=== PATIENT | male | born 1935 | race Caucasian/White ===

== ENCOUNTER → 2016-07-23 | Outpatient (CLI) | payer MEDICARE ==
--- NOTE | 2016-07-24 11:46 | XR ---
EXAMINATION TYPE: XR chest 2V DATE OF EXAM: 07/23/2016 3:05 PM COMPARISON: 08/28/2015 HISTORY: Shortness of breath TECHNIQUE: Frontal and lateral views of the chest are obtained. FINDINGS: Scattered senescent parenchymal changes noted. Hyperinflation compatible with COPD. No evidence for infiltrate. No evidence for atelectasis. Heart size is stable. Mediastinal structures are stable and grossly unremarkable. No evidence for hilar prominence. Degenerative changes dorsal spine. IMPRESSION: 1. No evidence for acute pulmonary disease.
== END | disposition home or self-care (01) ==
LOC: RADXRYALE 14:55
PROVIDERS: ATTEND Family Medicine
DX: J20.8 Acute bronchitis due to other specified organisms (principal)
CPT/HCPCS: 71020

== ENCOUNTER 2017-05-20 08:10 | Inpatient (IN) | payer MEDICARE ==
--- NOTE | 2017-05-20 08:27 | ED ---
General Adult HPI - General Chief complaint: Arrhythmia/Palpitations Stated complaint: Afib Time Seen by Provider: 05/20/17 08:20 Source: patient, family, RN notes reviewed Mode of arrival: wheelchair Limitations: no limitations - History of Present Illness Initial comments: Patient is a pleasant 82-year-old male presenting to the emergency department with concerns for atrial fibrillation. Patient has had similar problems previously however not in over a year. Patient does have history of ablation. Patient was somewhat restless through the night. Patient woke up this morning and felt lightheaded. They did check the pulse and found it to be fast and irregular consistent with previous atrial fibrillation. No palpitations. No chest pain. No dyspnea. - Related Data Home Medications Medication Instructions Recorded Confirmed Carvedilol [Coreg] 25 mg PO BID@0500,1800 07/12/14 05/20/17 Multivitamin [Men's Multi-Vitamin] 1 tab PO DAILY@1300 07/12/14 05/20/17 Propafenone [Rythmol] 150 mg PO TID@,,07/12/14 05/20/17 Tamsulosin HCl [Flomax] 0.4 mg PO HS@2100 07/12/14 05/20/17 Warfarin [Coumadin] 3.75 tab PO WESA@1800 07/12/14 05/20/17 Warfarin [Coumadin] 7.5 mg PO SUMOTUTHFR@1800 07/12/14 05/20/17 Allergies Allergy/AdvReac Type Severity Reaction Status Date / Time albuterol [From Ventolin HFA] Allergy Rapid Verified 05/20/17 08:53 Heart Rate amiodarone HCl Allergy Dyspnea Verified 05/20/17 08:53 [From Cordarone] codeine Allergy Nausea & Verified 05/20/17 08:53 Vomiting enalapril maleate Allergy Cough Verified 05/20/17 08:53 [From Vasotec] enalaprilat dihydrate Allergy Cough Verified 05/20/17 08:53 [From Vasotec] hydromorphone HCl Allergy Nausea & Verified 05/20/17 08:53 [From Dilaudid] Vomiting isosorbide mononitrate Allergy Unknown Verified 05/20/17 08:53 [From Imdur] loratadine [From Claritin] Allergy Rapid Verified 05/20/17 08:53 Heart Rate morphine Allergy Nausea & Verified 05/20/17 08:53 Vomiting Penicillins Allergy Rash/Hives Verified 05/20/17 08:53 procainamide HCl Allergy "FLUID ON Verified 05/20/17 08:53 [From Pronestyl] HEART" tetanus toxoid, adsorbed Allergy "JOINT Verified 05/20/17 08:53 STIFFNESS" Review of Systems ROS Statement: Those systems with pertinent positive or pertinent negative responses have been documented in the HPI. ROS Other: All systems not noted in ROS Statement are negative. Constitutional: Denies: fever Eyes: Denies: eye pain ENT: Denies: ear pain Respiratory: Denies: cough Cardiovascular: Denies: chest pain Endocrine: Denies: fatigue Gastrointestinal: Denies: abdominal pain Genitourinary: Denies: dysuria Musculoskeletal: Denies: back pain Skin: Denies: rash Neurological: Denies: weakness Past Medical History Past Medical History: Atrial Fibrillation, Hypertension, Osteoarthritis (OA), Skin Disorder, Sleep Apnea/CPAP/BIPAP Additional Past Medical History / Comment(s): uses CPAP, hx. kidney stones, psoriasis, see Dr Martinez [facility] & P History of Any Multi-Drug Resistant Organisms: None Reported Past Surgical History: Cardiac Ablation, Joint Replacement, Orthopedic Surgery Additional Past Surgical History / Comment(s): KIDNEY & URETER SURGERY, BILATERAL KNEE AND HIP REPLACEMENT Past Anesthesia/Blood Transfusion Reactions: No Reported Reaction Past Psychological History: No Psychological Hx Reported Smoking Status: Former smoker Past Alcohol Use History: None Reported Past Drug Use History: None Reported General Exam Limitations: no limitations General appearance: alert, in no apparent distress Head exam: Present: atraumatic Eye exam: Present: normal appearance, PERRL ENT exam: Present: normal oropharynx Neck exam: Present: normal inspection Respiratory exam: Present: normal lung sounds bilaterally Cardiovascular Exam: Present: tachycardia, irregular rhythm GI/Abdominal exam: Present: soft. Absent: tenderness Extremities exam: Present: normal inspection Neurological exam: Present: alert Psychiatric exam: Present: normal affect, normal mood Skin exam: Present: normal color Course Vital Signs 05/20/17 05/20/17 05/20/17 08:20 08:23 08:44 Temperature 97.4 F L Pulse Rate 128 H 122 H Pulse Rate [ 129 H Radial] Respiratory 16 Rate Blood Pressure 135/93 99/58 O2 Sat by Pulse 95 Oximetry 05/20/17 05/20/17 09:18 09:42 Temperature Pulse Rate 120 H 105 H Pulse Rate [ Radial] Respiratory 16 16 Rate Blood Pressure 94/50 107/64 O2 Sat by Pulse 97 96 Oximetry EKG Findings - EKG Comments: EKG Findings:: A. fib with RVR, rate 124. QRS 116. QT 352. QTC 505. Left axis. LVH. Nonspecific ST-T. Medical Decision Making - Medical Decision Making Patient reexamined and resting comfortably in bed. Heart rate remains fluctuating between 100-140. Patient and family were updated on results and plan. Case discussed in detail with Dr. Park, who will admit for Dr. Mosqueda. - Lab Data Result diagrams: 05/20/17 08:33 05/20/17 08:33 Lab Results 05/20/17 05/20/17 05/20/17 Range/Units 08:33 08:33 08:33 WBC 5.9 (3.8-10.6) k/uL RBC 4.63 (4.30-5.90) m/uL Hgb 14.4 (13.0-17.5) gm/dL Hct 44.6 (39.0-53.0) % MCV 96.1 (80.0-100.0) fL MCH 31.1 (25.0-35.0) pg MCHC 32.4 (31.0-37.0) g/dL RDW 13.8 (11.5-15.5) % Plt Count 186 (150-450) k/uL Neutrophils % 68 % Lymphocytes % 19 % Monocytes % 7 % Eosinophils % 4 % Basophils % 1 % Neutrophils # 4.0 (1.3-7.7) k/uL Lymphocytes # 1.1 (1.0-4.8) k/uL Monocytes # 0.4 (0-1.0) k/uL Eosinophils # 0.2 (0-0.7) k/uL Basophils # 0.1 (0-0.2) k/uL PT (9.0-12.0) sec INR (<1.2) APTT (22.0-30.0) sec Sodium 141 (137-145) mmol/L Potassium 4.5 (3.5-5.1) mmol/L Chloride 109 H (98-107) mmol/L Carbon Dioxide 24 (22-30) mmol/L Anion Gap 8 mmol/L BUN 22 H (9-20) mg/dL Creatinine 0.78 (0.66-1.25) mg/dL Est GFR (MDRD) Af Amer >60 (>60 ml/min/1.73 sqM) Est GFR (MDRD) Non-Af >60 (>60 ml/min/1.73 sqM) Glucose 112 H (74-99) mg/dL Calcium 9.3 (8.4-10.2) mg/dL Magnesium 2.0 (1.6-2.3) mg/dL Total Bilirubin 0.4 (0.2-1.3) mg/dL AST 31 (17-59) U/L ALT 36 (21-72) U/L Alkaline Phosphatase 64 (38-126) U/L Total Creatine Kinase 53 L (55-170) U/L CK-MB (CK-2) 1.1 (0.0-2.4) ng/mL CK-MB (CK-2) Rel Index 2.1 Troponin I <0.012 (0.000-0.034) ng/mL Total Protein 6.9 (6.3-8.2) g/dL Albumin 3.9 (3.5-5.0) g/dL TSH 1.750 (0.465-4.680) mIU/L Free T4 0.88 (0.78-2.19) ng/dL Free T3 pg/mL 3.3 (2.8-5.3) pg/ml 05/20/17 Range/Units 08:33 WBC (3.8-10.6) k/uL RBC (4.30-5.90) m/uL Hgb (13.0-17.5) gm/dL Hct (39.0-53.0) % MCV (80.0-100.0) fL MCH (25.0-35.0) pg MCHC (31.0-37.0) g/dL RDW (11.5-15.5) % Plt Count (150-450) k/uL Neutrophils % % Lymphocytes % % Monocytes % % Eosinophils % % Basophils % % Neutrophils # (1.3-7.7) k/uL Lymphocytes # (1.0-4.8) k/uL Monocytes # (0-1.0) k/uL Eosinophils # (0-0.7) k/uL Basophils # (0-0.2) k/uL PT 17.8 H (9.0-12.0) sec INR 1.9 H (<1.2) APTT 32.2 H (22.0-30.0) sec Sodium (137-145) mmol/L Potassium (3.5-5.1) mmol/L Chloride (98-107) mmol/L Carbon Dioxide (22-30) mmol/L Anion Gap mmol/L BUN (9-20) mg/dL Creatinine (0.66-1.25) mg/dL Est GFR (MDRD) Af Amer (>60 ml/min/1.73 sqM) Est GFR (MDRD) Non-Af (>60 ml/min/1.73 sqM) Glucose (74-99) mg/dL Calcium (8.4-10.2) mg/dL Magnesium (1.6-2.3) mg/dL Total Bilirubin (0.2-1.3) mg/dL AST (17-59) U/L ALT (21-72) U/L Alkaline Phosphatase (38-126) U/L Total Creatine Kinase (55-170) U/L CK-MB (CK-2) (0.0-2.4) ng/mL CK-MB (CK-2) Rel Index Troponin I (0.000-0.034) ng/mL Total Protein (6.3-8.2) g/dL Albumin (3.5-5.0) g/dL TSH (0.465-4.680) mIU/L Free T4 (0.78-2.19) ng/dL Free T3 pg/mL (2.8-5.3) pg/ml - Radiology Data Radiology results: image reviewed (Chest x-ray shows mild cardiomegaly. Curvilinear density right base.) Critical Care Time Critical Care Time: Yes Total Critical Care Time: 31 Disposition Clinical Impression: Atrial fibrillation with RVR Disposition: ADMITTED IP TO THIS HOSP Referrals: Nehemiah Mosqueda DO [Primary Care Provider] - 1-2 days Decision Time: 10:26
[2017-05-20] MEDS: DILTIAZEM 5 MG/ML 5 ML VIAL IVP STA ×2 (08:38→09:26)
[2017-05-20 08:43] LABS: Basophils # (A) 0.1 k/uL (0-0.2); Basophils % (A) 1 %; CH 31.2; CHCM 32.6; Eosinophils # (A) 0.2 k/uL (0-0.7); Eosinophils % (A) 4 %; HCT 44.6 % (39.0-53.0); HDW 2.32; HGB 14.4 gm/dL (13.0-17.5); Luc # (Auto) 0.06; Luc % (Auto) 1; Lymphocytes # (A) 1.1 k/uL (1.0-4.8); Lymphocytes % (A) 19 %; MCH 31.1 pg (25.0-35.0); MCHC 32.4 g/dL (31.0-37.0); MCV 96.1 fL (80.0-100.0); Mean Platelet Volume 7.7; Monocytes # (A) 0.4 k/uL (0-1.0); Monocytes % (A) 7 %; Neutrophils % (A) 68 %; RBC 4.63 m/uL (4.30-5.90); RDW 13.8 % (11.5-15.5); WBC 5.9 k/uL (3.8-10.6)
[2017-05-20 08:52] LABS: INR 1.9 (<1.2); Partial Thromboplastin Time 32.2 sec (22.0-30.0); Prothrombin Time 17.8 sec (9.0-12.0)
[2017-05-20 08:58] LABS: ALT 36 U/L (21-72); AST 31 U/L (17-59); Alkaline Phosphatase 64 U/L (38-126); Anion Gap 8 mmol/L; Blood Urea Nitrogen 22 mg/dL (9-20); Calcium 9.3 mg/dL (8.4-10.2); Carbon Dioxide 24 mmol/L (22-30); Chloride 109 mmol/L (98-107); Glucose 112 mg/dL (74-99); Non-African American GFR(MDRD) >60 (>60 ml/min/1.73 sqM); Potassium 4.5 mmol/L (3.5-5.1); Sodium 141 mmol/L (137-145); Total Bilirubin 0.4 mg/dL (0.2-1.3); Total Protein 6.9 g/dL (6.3-8.2)
[2017-05-20 09:05] LABS: Creatine Kinase 53 U/L (55-170)
[2017-05-20 09:19] LABS: Creatine Kinase MB 1.1 ng/mL (0.0-2.4); Troponin I <0.012 ng/mL (0.000-0.034)
--- NOTE | 2017-05-20 09:35 | XR ---
EXAMINATION TYPE: XR chest 2V DATE OF EXAM: 05/20/2017 COMPARISON: 07/23/2016 HISTORY: 82-year-old male dysrhythmia TECHNIQUE: AP and lateral views FINDINGS: Heart is mildly enlarged. Mild diffuse interstitial prominence unchanged from prior. Strandy atelecta sis at the lung bases. Either curvilinear band of atelectasis, interposed colon below the right hemid iaphragm and liver, or less likely free air below the right hemidiaphragm. No consolidation or pleura l effusion. IMPRESSION: 1 mild cardiomegaly. 2. Chronic appearing changes. 3. Curvilinear density at the right base. Differential considerations include a band of atelectasis, colonic interposition between the right hemidiaphragm and liver, or free air. Recommend clinical asse ssment of the patient and a decubitus view of the abdomen to further evaluate.
[2017-05-20] MEDS ORDERED: NALOXONE 0.4 MG/ML 1 ML VIAL IV PRN (10:27)
[2017-05-20] MEDS ORDERED: DILTIAZEM 125 MG in SODIUM CHLORIDE 0.9% 100 ML IV ONE (10:30)
[2017-05-20] MEDS ORDERED: SODIUM CHLORIDE 0.9% 1,000 ML IV STA (10:44)
--- NOTE | 2017-05-20 10:55 | XR ---
EXAMINATION TYPE: XR abdomen complete w decub DATE OF EXAM: 05/20/2017 COMPARISON: Chest radiograph same day HISTORY: 82-year-old male atrial fibrillation and abnormal chest x-ray TECHNIQUE: Supine, upright, and left side down lateral decubitus views of the abdomen are obtained. FINDINGS: No evidence for free intraperitoneal air on the upright abdominal or left decubitus view. Focal eventration of the right hemidiaphragm. The hepatic flexure is high in the right hemicolon. Bor derline dilated small bowel loops are present throughout without differential air-fluid levels. Degenerative changes throughout the lumbar spine. Left hip total arthroplasties partially visualized. IMPRESSION: 1. Borderline dilated small bowel loops. This could be transient or reflect enteritis or ileus. Overa ll bowel gas pattern is nonobstructive. 2. The questioned radiographic finding corresponds to high positioning of the hepatic flexure. No david dence for free air.
[2017-05-20] MEDS ORDERED: HEPARIN SODIUM,PORCINE 5,000 UNIT/ML 1 ML VIAL IV PRN (11:17)
[2017-05-20] MEDS ORDERED: HEPARIN SODIUM,PORCINE 5,000 UNIT/ML 1 ML VIAL IV ONE (11:30)
[2017-05-20] MEDS ORDERED: ENOXAPARIN 100 MG/ML SYRINGE SQ STA (11:37)
[2017-05-20] MEDS ORDERED: HEPARIN SODIUM,PORCINE/D5W PMX 25,000 UNIT in DEXTROSE/WATER 1 500ML.BAG IV SCH (12:00)
[2017-05-20] MEDS ORDERED: PROPAFENONE 150 MG TAB PO SCH (13:00)
[2017-05-20] MEDS ORDERED: MULTIVITAMINS, THERA 1 EACH TAB PO SCH (13:00)
--- NOTE | 2017-05-20 13:00 | P.HPIM ---
History of Present Illness H&P Date: 05/20/17 Chief Complaint: Lightheaded HISTORY AND PHYSICAL AND DISCHARGE SUMMARY: This is an 82-year-old male patient of Dr. Mosqueda with a past medical history of paroxysmal atrial fibrillation status post cardiac ablation in 2007 as well as cardioversions a couple times since then, hypertension, osteoarthritis, obstructive sleep apnea but not currently on a CPAP, psoriasis, hard of hearing. Patient states that he woke up feeling lightheaded and was concerned that he had atrial fibrillation again. He did have a rapid heartbeat. He came into [facility] emergency center for evaluation. His EKG was atrial fibrillation at a rate of 124. TSH was normal. Patient was admitted to the selective care unit and has been seen by Dr. KAREN Thomas. Patient is up slightly converted to a sinus rhythm. Dr. KAREN Thomas has recommended increased dose of Rythmol from 150 mg 3 times daily to 225 mg 3 times daily and he will provide patient with a prescription. Patient is to continue his current dose of Coumadin. Note his INR is at 1.9. Review of Systems All systems: negative Constitutional: Denies chills, Denies fever Eyes: denies blurred vision, denies pain Ears, nose, mouth and throat: Denies headache, Denies sore throat Cardiovascular: Reports lightheadedness, Reports rapid heart beat, Denies chest pain, Denies shortness of breath Respiratory: Denies cough Gastrointestinal: Denies abdominal pain, Denies diarrhea, Denies nausea, Denies vomiting Musculoskeletal: Denies myalgias Integumentary: Denies pruritus, Denies rash Neurological: Denies numbness, Denies weakness Psychiatric: Denies anxiety, Denies depression Endocrine: Denies fatigue, Denies weight change Past Medical History Past Medical History: Atrial Fibrillation, Atrial Flutter, Hypertension, Osteoarthritis (OA), Pneumonia, Renal Disease, Skin Disorder, Sleep Apnea/CPAP/ BIPAP Additional Past Medical History / Comment(s): Not currently using CPAP, kidney stones, psoriasis, reactive airway, urinary frequency. History of Any Multi-Drug Resistant Organisms: None Reported Past Surgical History: Cardiac Ablation, Joint Replacement, Orthopedic Surgery Additional Past Surgical History / Comment(s): Cardioversions, 2007 cardiac ablation, bilateral total knee arthroplasty, bilateral total hip arthroplasty, R plastic ureter insertion, colonoscopy, L ankle ORIF, L index finger amp and L hand had 3 fingers surgically reattached after saw accident. Past Anesthesia/Blood Transfusion Reactions: No Reported Reaction Smoking Status: Former smoker Additional Past Alcohol Use History / Comment(s): Patient smoked a pipe for 7 years and quit 40 years ago. No alcohol abuse. He lives at home with his . - Past Family History Mother Family Medical History: Cancer, Hypertension Additional Family Medical History / Comment(s): Mother of lung cancer. She was a smoker. Father Family Medical History: Cancer, Hypertension Additional Family Medical History / Comment(s): Father of prostrate cancer. Brother(s) Additional Family Medical History / Comment(s): Patient has one brother with history of atrial fibrillation and kidney cancer, second brother with valvular heart disease, third brother with Parkinson's. Daughter(s) Additional Family Medical History / Comment(s): Patient has 3 children and one daughter recently from consultations from obesity. Other 2 children have no major medical problems. Medications and Allergies Home Medications Medication Instructions Recorded Confirmed Type Carvedilol [Coreg] 25 mg PO BID@0500,1800 07/12/14 05/20/17 History Multivitamin [Men's Multi-Vitamin] 1 tab PO DAILY@1300 07/12/14 05/20/17 History Propafenone [Rythmol] 150 mg PO TID@,,07/12/14 05/20/17 History Tamsulosin HCl [Flomax] 0.4 mg PO HS@2100 07/12/14 05/20/17 History Warfarin [Coumadin] 3.75 tab PO WESA@1800 07/12/14 05/20/17 History Warfarin [Coumadin] 7.5 mg PO SUMOTUTHFR@1800 07/12/14 05/20/17 History Allergies Allergy/AdvReac Type Severity Reaction Status Date / Time albuterol [From Ventolin HFA] Allergy Rapid Verified 05/20/17 08:53 Heart Rate amiodarone HCl Allergy Dyspnea Verified 05/20/17 08:53 [From Cordarone] codeine Allergy Nausea & Verified 05/20/17 08:53 Vomiting enalapril maleate Allergy Cough Verified 05/20/17 08:53 [From Vasotec] enalaprilat dihydrate Allergy Cough Verified 05/20/17 08:53 [From Vasotec] hydromorphone HCl Allergy Nausea & Verified 05/20/17 08:53 [From Dilaudid] Vomiting isosorbide mononitrate Allergy Unknown Verified 05/20/17 08:53 [From Imdur] loratadine [From Claritin] Allergy Rapid Verified 05/20/17 08:53 Heart Rate morphine Allergy Nausea & Verified 05/20/17 08:53 Vomiting Penicillins Allergy Rash/Hives Verified 05/20/17 08:53 procainamide HCl Allergy "FLUID ON Verified 05/20/17 08:53 [From Pronestyl] HEART" tetanus toxoid, adsorbed Allergy "JOINT Verified 05/20/17 08:53 STIFFNESS" Physical Exam Vitals: Vital Signs Temp Pulse Pulse Resp BP Pulse Ox 05/20/17 10:54 97.8 F 117 H 16 102/61 97 05/20/17 09:42 105 H 16 107/64 96 05/20/17 09:18 120 H 16 94/50 97 05/20/17 08:44 122 H 99/58 05/20/17 08:23 129 H 05/20/17 08:20 97.4 F L 128 H 16 135/93 95 Intake and Output 05/19/17 05/20/17 05/20/17 22:59 06:59 14:59 Other: Weight 106.957 kg Patient Weight 05/21/17 06:59 Weight 106.957 kg Gen: This is an 82-year-old male. He is sitting up in bed and appears to be in no acute distress. HEENT: Head is atraumatic, normocephalic. Pupils equal, round. Sclerae is anicteric. NECK: Supple. No JVD. No lymphadenopathy. No thyromegaly. LUNGS: Clear to auscultation. No wheezes or rhonchi. No intercostal retractions. HEART: irregular rate and rhythm. No murmur. ABDOMEN: Soft. Bowel sounds are present. No masses. No tenderness. EXTREMITIES: No pedal edema. No calf tenderness. NEUROLOGICAL: Patient is awake, alert and oriented x3. Cranial nerves 2 through 12 are grossly intact. Results CBC & Chem 7: 05/20/17 08:33 05/20/17 08:33 Labs: Abnormal Lab Results - Last 24 Hours (Table) 05/20/17 05/20/17 05/20/17 Range/Units 08:33 08:33 08:33 PT 17.8 H (9.0-12.0) sec INR 1.9 H (<1.2) APTT 32.2 H (22.0-30.0) sec Chloride 109 H (98-107) mmol/L BUN 22 H (9-20) mg/dL Glucose 112 H (74-99) mg/dL Total Creatine Kinase 53 L (55-170) U/L Thrombosis Risk Factor Assmnt - DVT/VTE Prophylaxis DVT/VTE Prophylaxis: Pharmacologic Prophylaxis ordered - Choose All That Apply Any of the Below Risk Factors Present?: Yes Each Factor Represents 1 point: Obesity (BMI >25) Other Risk Factors: Yes Each Risk Factor Represents 3 Points: Age 75 years or older Other congenital or acquired thrombophilia - If yes, enter type in comment: No Thrombosis Risk Factor Assessment Total Risk Factor Score: 4 Thrombosis Risk Factor Assessment Level: Moderate Risk Assessment and Plan Plan: 1. Paroxysmal atrial fibrillation status post cardiac ablation and cardioversion some the past. Cardiology has increased his Rythmol and cleared for discharge if he remains in sinus rhythm. Continue current dose of Coumadin and Coreg. 2. Sleep apnea. Patient will need follow-up with Dr. Silva. 3. Hypertension. 4. Benign prostatic hypertrophy. Discharge plan: return home Impression and plan of care have been directed as dictated by the signing physician. Urmila Carey nurse practitioner acting as scribe for signing physician.
--- NOTE | 2017-05-20 14:05 | P.CRDCN ---
History of Present Illness Consult date: 05/20/17 Requesting physician: Kirit Prather Consult reason: atrial fibrillation Chief complaint: Dizziness History of present illness: This is a pleasant 82-year-old gentleman who follows regularly with Dr. Martinez in the office. He has a known history of hypertension, paroxysmal atrial fibrillation for which he has undergone an ablation in the past as well as cardioversions. For the past couple of years the patient has remained in a normal sinus rhythm. This morning patient presents to the hospital with symptoms of dizziness, he checked his pulse at home and noted it to be irregular and fast and came to the emergency room for further evaluation. Patient has been on Coumadin for anticoagulation and has been taking Rythmol 150mg 3 times a day. EKG on arrival showed atrial fibrillation with a rapid ventricular response. Chest x-ray revealed mild cardiomegaly with chronic appearing changes. White blood cell count normal, hemoglobin 14.4, platelet count 186. INR 1.9, potassium 4.5, BUN 22, creatinine 0.7. Troponin 0.012. TSH 1.7, free T4 0.88. Blood pressure 102/60. At the time of our examination, patient converted to normal sinus rhythm. I did have a lengthy discussion with the patient and his regarding the newer anticoagulants, the thinks that there may have been a concern with cost in the past. We will check into coverage for Eliquis. We will also increase the patient's Rythmol to 225 mg one tablet by mouth 3 times a day. Past Medical History Past Medical History: Atrial Fibrillation, Atrial Flutter, Hypertension, Osteoarthritis (OA), Pneumonia, Renal Disease, Skin Disorder, Sleep Apnea/CPAP/ BIPAP Additional Past Medical History / Comment(s): Not currently using CPAP, kidney stones, psoriasis, reactive airway, urinary frequency. History of Any Multi-Drug Resistant Organisms: None Reported Past Surgical History: Cardiac Ablation, Joint Replacement, Orthopedic Surgery Additional Past Surgical History / Comment(s): Cardioversions, 2007 cardiac ablation, bilateral total knee arthroplasty, bilateral total hip arthroplasty, R plastic ureter insertion, colonoscopy, L ankle ORIF, L index finger amp and L hand had 3 fingers surgically reattached after saw accident. Past Anesthesia/Blood Transfusion Reactions: No Reported Reaction Smoking Status: Former smoker Additional Past Alcohol Use History / Comment(s): Patient smoked a pipe for 7 years and quit 40 years ago. No alcohol abuse. He lives at home with his . - Past Family History Mother Family Medical History: Cancer, Hypertension Additional Family Medical History / Comment(s): Mother of lung cancer. She was a smoker. Father Family Medical History: Cancer, Hypertension Additional Family Medical History / Comment(s): Father of prostrate cancer. Brother(s) Additional Family Medical History / Comment(s): Patient has one brother with history of atrial fibrillation and kidney cancer, second brother with valvular heart disease, third brother with Parkinson's. Daughter(s) Additional Family Medical History / Comment(s): Patient has 3 children and one daughter recently from consultations from obesity. Other 2 children have no major medical problems. Medications and Allergies Home Medications Medication Instructions Recorded Confirmed Type Carvedilol [Coreg] 25 mg PO BID@0500,1800 07/12/14 05/20/17 History Multivitamin [Men's Multi-Vitamin] 1 tab PO DAILY@1300 07/12/14 05/20/17 History Propafenone [Rythmol] 150 mg PO TID@,,07/12/14 05/20/17 History Tamsulosin HCl [Flomax] 0.4 mg PO HS@2100 07/12/14 05/20/17 History Warfarin [Coumadin] 3.75 tab PO WESA@1800 07/12/14 05/20/17 History Warfarin [Coumadin] 7.5 mg PO SUMOTUTHFR@1800 07/12/14 05/20/17 History Allergies Allergy/AdvReac Type Severity Reaction Status Date / Time albuterol [From Ventolin HFA] Allergy Rapid Verified 05/20/17 08:53 Heart Rate amiodarone HCl Allergy Dyspnea Verified 05/20/17 08:53 [From Cordarone] codeine Allergy Nausea & Verified 05/20/17 08:53 Vomiting enalapril maleate Allergy Cough Verified 05/20/17 08:53 [From Vasotec] enalaprilat dihydrate Allergy Cough Verified 05/20/17 08:53 [From Vasotec] hydromorphone HCl Allergy Nausea & Verified 05/20/17 08:53 [From Dilaudid] Vomiting isosorbide mononitrate Allergy Unknown Verified 05/20/17 08:53 [From Imdur] loratadine [From Claritin] Allergy Rapid Verified 05/20/17 08:53 Heart Rate morphine Allergy Nausea & Verified 05/20/17 08:53 Vomiting Penicillins Allergy Rash/Hives Verified 05/20/17 08:53 procainamide HCl Allergy "FLUID ON Verified 05/20/17 08:53 [From Pronestyl] HEART" tetanus toxoid, adsorbed Allergy "JOINT Verified 05/20/17 08:53 STIFFNESS" Physical Exam Vitals: Vital Signs Temp Pulse Pulse Resp BP Pulse Ox 05/20/17 10:54 97.8 F 117 H 16 102/61 97 05/20/17 09:42 105 H 16 107/64 96 05/20/17 09:18 120 H 16 94/50 97 05/20/17 08:44 122 H 99/58 05/20/17 08:23 129 H 05/20/17 08:20 97.4 F L 128 H 16 135/93 95 Intake and Output 05/19/17 05/20/17 05/20/17 22:59 06:59 14:59 Other: Weight 106.957 kg Patient Weight 05/21/17 06:59 Weight 106.957 kg PHYSICAL EXAMINATION: HEENT: Head is atraumatic, normocephalic. Pupils equal, round. Neck is supple. There is no elevated jugular venous pressure. HEART EXAMINATION: Heart S1-S2 systolic murmur is heard. CHEST EXAMINATION: Lungs are clear to auscultation and precussion. No chest wall tenderness is noted on palpation or with deep breathing. ABDOMEN: Soft, nontender. Bowel sounds are heard. No organomegaly noted. EXTREMITIES: 2+ peripheral pulses with no evidence of peripheral edema and no calf tenderness noted. NEUROLOGIC patient is awake, alert and oriented -3.] . Results 05/20/17 08:33 05/20/17 08:33 Cardiac Enzymes 05/20/17 05/20/17 Range/Units 08:33 08:33 AST 31 (17-59) U/L CK-MB (CK-2) 1.1 (0.0-2.4) ng/mL Troponin I <0.012 (0.000-0.034) ng/mL Coagulation 05/20/17 Range/Units 08:33 PT 17.8 H (9.0-12.0) sec APTT 32.2 H (22.0-30.0) sec CBC 05/20/17 Range/Units 08:33 WBC 5.9 (3.8-10.6) k/uL RBC 4.63 (4.30-5.90) m/uL Hgb 14.4 (13.0-17.5) gm/dL Hct 44.6 (39.0-53.0) % Plt Count 186 (150-450) k/uL Comprehensive Metabolic Panel 05/20/17 Range/Units 08:33 Sodium 141 (137-145) mmol/L Potassium 4.5 (3.5-5.1) mmol/L Chloride 109 H (98-107) mmol/L Carbon Dioxide 24 (22-30) mmol/L BUN 22 H (9-20) mg/dL Creatinine 0.78 (0.66-1.25) mg/dL Glucose 112 H (74-99) mg/dL Calcium 9.3 (8.4-10.2) mg/dL AST 31 (17-59) U/L ALT 36 (21-72) U/L Alkaline Phosphatase 64 (38-126) U/L Total Protein 6.9 (6.3-8.2) g/dL Albumin 3.9 (3.5-5.0) g/dL Current Medications Generic Name Dose Route Start Last Admin Trade Name Freq PRN Reason Stop Dose Admin Carvedilol 25 mg 05/20/17 18:00 Coreg PO BID@0500,1800 [facility] Sodium Chloride 1,000 mls @ 20 mls/hr 05/20/17 10:44 05/20/17 10:55 Saline 0.9% IV 05/21/17 10:43 20 mls/hr .Q24H STA Administration Multivitamins 1 each 05/20/17 13:00 05/20/17 12:09 Theragran PO 1 each DAILY@1300 PHILLY Administration Naloxone HCl 0.2 mg 05/20/17 10:27 Narcan IV Q2M PRN Opioid Reversal Propafenone HCl 225 mg 05/20/17 12:30 Rythmol PO TID [facility] Tamsulosin HCl 0.4 mg 05/20/17 21:00 Flomax PO HS@2100 [facility] Warfarin Sodium 3.75 mg 05/22/17 18:00 Coumadin PO WESA@1800 [facility] Warfarin Sodium 7.5 mg 05/21/17 18:00 Coumadin PO SUMOTUTHFR@1800 [facility] Warfarin Sodium 10 mg 05/20/17 18:00 Coumadin PO 05/20/17 18:01 ONCE@1800 ONE Intake and Output 05/19/17 05/20/17 05/20/17 22:59 06:59 14:59 Other: Weight 106.957 kg Patient Weight 05/21/17 06:59 Weight 106.957 kg 05/20/17 08:33 05/20/17 08:33 EKG Interpretations (text) Initial EKG shows atrial fibrillation with rapid ventricular response. Assessment and Plan Plan: Assessment and plan #1 atrial fibrillation with rapid ventricular response, paroxysmal. #2 history of prior atrial fibrillation with previous ablation and cardioversion 's. #3 hypertension Plan We will obtain an echocardiogram with Doppler study and check the patient's free T4 and TSH. We will also give the patient a 10 mg dose of Coumadin today as well as a dose of Lovenox. INR was 1.9. We will check to see if the patient has coverage for Eliquis if so we will initiate the patient on Eliquis 5 mg by mouth twice a day. We will also increase the dose of Rythmol to 225 mg one tablet by mouth 3 times a day. If patient remains stable he may be able to be discharged home later this afternoon to follow with Dr. Martinez in the office. DNP note has been reviewed, I agree with a documented findings and plan of care. Patient was seen and examined.
[2017-05-20] MEDS ORDERED: PROPAFENONE 150 MG TAB PO STA (14:16)
[2017-05-20] MEDS: PROPAFENONE 225 MG TAB PO SCH ×2 (14:16→16:38)
[2017-05-20 15:42] VITALS: BP 135/64; PULSE 125; RESP 18; TEMP 96.8
[2017-05-20 16:20] LABS: Creatine Kinase 42 U/L (55-170)
[2017-05-20 16:33] LABS: Troponin I <0.012 ng/mL (0.000-0.034)
[2017-05-20] MEDS ORDERED: WARFARIN 10 MG TAB PO ONE (18:00)
[2017-05-20] MEDS ORDERED: CARVEDILOL 12.5 MG TAB PO SCH (18:00)
[2017-05-20] MEDS ORDERED: TAMSULOSIN 0.4 MG CAP.ER.24H PO SCH (21:00)
[2017-05-21] MEDS ORDERED: WARFARIN 7.5 MG TAB PO SCH (18:00)
[2017-05-22] MEDS ORDERED: WARFARIN 7.5 MG TAB PO SCH (18:00)
== END 2017-05-20 17:19 | disposition home or self-care (01) | DRG 310 ==
LOC: EC 08:10 → 6SEL 10:28
PROVIDERS: ADMIT Internal Medicine; ATTEND Internal Medicine
DX: I48.0 Paroxysmal atrial fibrillation (principal); I11.9 Hypertensive heart disease without heart failure; G47.33 Obstructive sleep apnea (adult) (pediatric); M19.90 Unspecified osteoarthritis, unspecified site; N40.0 Benign prostatic hyperplasia without lower urinary tract symptoms; Z80.1 Family history of malignant neoplasm of trachea, bronchus and lung; Z80.51 Family history of malignant neoplasm of kidney; Z82.0 Family history of epilepsy and other diseases of the nervous system; Z82.49 Family history of ischemic heart disease and other diseases of the circulatory system; Z87.442 Personal history of urinary calculi; Z87.891 Personal history of nicotine dependence; Z96.643 Presence of artificial hip joint, bilateral; Z96.653 Presence of artificial knee joint, bilateral; Z88.5 Allergy status to narcotic agent; Z88.0 Allergy status to penicillin; Z88.7 Allergy status to serum and vaccine
CPT/HCPCS: 36415; 71020; 74020; 80053; 82550; 82553; 83605; 83735; 84439; 84443; 84481; 84484; 85025; 85610; 85730; 93005; 96365; 96376; 99291

== ENCOUNTER 2017-07-20 12:03 | Emergency (ER) | payer MEDICARE ==
[2017-07-20 12:12] VITALS: TEMP 98
[2017-07-20] MEDS ORDERED: METOPROLOL TARTRATE 5 MG/5 ML VIAL IVP STA (13:48)
--- NOTE | 2017-07-20 13:52 | ED ---
General Adult HPI - General Chief complaint: Arrhythmia/Palpitations Stated complaint: A fib Time Seen by Provider: 07/20/17 12:05 Source: patient, family, RN notes reviewed Mode of arrival: wheelchair Limitations: no limitations - History of Present Illness Initial comments: This is an 82-year-old male presents emergency Department with a past medical history significant for atrial fibrillation he is on Coumadin and Rythmol. Patient states this morning he woke up felt his heart racing and he was a little bit lightheaded he took his medications and it continued so he decided come to the emergency department. Patient states since he's been here it has subsided a little but he still feels that every once a while. Patient denies any chest pain. Patient denies shortness of breath or difficulty breathing. Patient denies any near syncopal episode. Patient denies any abdominal pain patient denies any recent fever chills or cough. Patient denies any nausea vomiting diarrhea. Patient denies any increased swelling in the legs or calf tenderness - Related Data Home Medications Medication Instructions Recorded Confirmed Carvedilol [Coreg] 25 mg PO BID@0500,1800 07/12/14 07/20/17 Tamsulosin HCl [Flomax] 0.4 mg PO HS@2100 07/12/14 07/20/17 Multivitamins, Thera [Multivitamin 1 tab PO DAILY@1300 07/05/17 07/20/17 (formulary)] Propafenone [Rythmol] 225 mg PO TID@0530,1300,1800 07/20/17 07/20/17 Warfarin [Coumadin] 2.5 mg PO MOFR@179907/20/17 07/20/17 Warfarin [Coumadin] 5 mg PO SUTUWETHSA@1800 07/20/17 07/20/17 Previous Rx's Medication Instructions Recorded Diltiazem Oral [Cardizem] 30 mg PO TID #21 tab 07/20/17 Allergies Allergy/AdvReac Type Severity Reaction Status Date / Time albuterol [From Ventolin HFA] Allergy Rapid Verified 07/20/17 12:28 Heart Rate amiodarone HCl Allergy Dyspnea/Hea Verified 07/20/17 12:28 [From Cordarone] dache codeine Allergy Nausea & Verified 07/20/17 12:28 Vomiting enalapril maleate Allergy Cough Verified 07/20/17 12:28 [From Vasotec] enalaprilat dihydrate Allergy Cough Verified 07/20/17 12:28 [From Vasotec] hydromorphone HCl Allergy Nausea & Verified 07/20/17 12:28 [From Dilaudid] Vomiting isosorbide mononitrate Allergy Unknown Verified 07/20/17 12:28 [From Imdur] loratadine [From Claritin] Allergy Rapid Verified 07/20/17 12:28 Heart Rate morphine Allergy Nausea & Verified 07/20/17 12:28 Vomiting Penicillins Allergy Rash/Hives Verified 07/20/17 12:28 procainamide HCl Allergy "FLUID ON Verified 07/20/17 12:28 [From Pronestyl] HEART" tetanus toxoid, adsorbed Allergy "JOINT Verified 07/20/17 12:28 STIFFNESS" Review of Systems ROS Statement: Those systems with pertinent positive or pertinent negative responses have been documented in the HPI. ROS Other: All systems not noted in ROS Statement are negative. Past Medical History Past Medical History: Atrial Fibrillation, Atrial Flutter, GERD/Reflux, Hypertension, Osteoarthritis (OA), Pneumonia, Renal Disease, Skin Disorder Additional Past Medical History / Comment(s): Pt recently had an influenza and was on an antibiotic, recently told he has a "spot" on his R lung-not worked up yet, Afib with RVR in past, no CPAP necessary, kidney stones, psoriasis, reactive airway, urinary frequency. History of Any Multi-Drug Resistant Organisms: None Reported Past Surgical History: Cardiac Ablation, Joint Replacement, Orthopedic Surgery Additional Past Surgical History / Comment(s): Cardioversions, 2007 cardiac ablation, bilateral total knee arthroplasty, bilateral total hip arthroplasty, R plastic ureter insertion, colonoscopy, L ankle ORIF, L index finger amp and L hand had 3 fingers surgically reattached after saw accident. Past Anesthesia/Blood Transfusion Reactions: No Reported Reaction Past Psychological History: No Psychological Hx Reported Smoking Status: Former smoker Past Alcohol Use History: None Reported Past Drug Use History: None Reported - Past Family History Mother Family Medical History: Cancer, Hypertension Additional Family Medical History / Comment(s): Mother of lung cancer. She was a smoker. Father Family Medical History: Cancer, Hypertension Additional Family Medical History / Comment(s): Father of prostrate cancer. Brother(s) Additional Family Medical History / Comment(s): Patient has one brother with history of atrial fibrillation and kidney cancer, second brother with valvular heart disease, third brother with Parkinson's. Daughter(s) Additional Family Medical History / Comment(s): Patient has 3 children and one daughter from complications from obesity. Other 2 children have no major medical problems. General Exam - General Exam Comments Initial Comments: GENERAL: Patient is well-developed and well-nourished. Patient is nontoxic and well- hydrated and is in no acute distress. ENT: Neck is soft and supple. No significant lymphadenopathy is noted. Oropharynx is clear. Moist mucous membranes. Neck has full range of motion without eliciting any pain. EYES: The sclera were anicteric and conjunctiva were pink and moist. Extraocular movements were intact and pupils were equal round and reactive to light. Eyelids were unremarkable. PULMONARY: Unlabored respirations. Good breath sounds bilaterally. No audible rales rhonchi or wheezing was noted. CARDIOVASCULAR: Patient is tachycardic at about 115 beats a minute and is irregular ABDOMEN: Soft and nontender with normal bowel sounds. No palpable organomegaly was noted. There is no palpable pulsatile mass. SKIN: Skin is clear with no lesions or rashes and otherwise unremarkable. NEUROLOGIC: Patient is alert and oriented x3. Cranial nerves II through XII are grossly intact. Motor and sensory are also intact. Normal speech, volume and content. Symmetrical smile. MUSCULOSKELETAL: Normal extremities with adequate strength and full range of motion. LYMPHATICS: No significant lymphadenopathy is noted PSYCHIATRIC: Normal psychiatric evaluation. Normal interpersonal interactions appears functionally intact in deals appropriately with others. No signs of depression. No signs of anxiety. Limitations: no limitations Course Vital Signs 07/20/17 07/20/17 07/20/17 12:08 13:53 14:11 Temperature 98.0 F Pulse Rate 128 H 130 H 120 H Respiratory 20 16 18 Rate Blood Pressure 134/65 157/69 140/94 O2 Sat by Pulse 99 96 97 Oximetry Medical Decision Making - Medical Decision Making EKG shows A. fib with rapid ventricular response at 105 bpm QRS is under 26 QT interval 38 QTC is 512. Patient's EKG shows no ST segment elevation or depression or T wave abnormalities are noted. Chest x-ray shows no acute abnormality. I spoke with Dr. 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 - Lab Data Result diagrams: 07/20/17 12:45 07/20/17 12:45 Lab Results 07/20/17 07/20/17 07/20/17 Range/Units 12:45 12:45 12:45 WBC 6.6 (3.8-10.6) k/uL RBC 4.36 (4.30-5.90) m/uL Hgb 13.7 (13.0-17.5) gm/dL Hct 42.9 (39.0-53.0) % MCV 98.4 (80.0-100.0) fL MCH 31.3 (25.0-35.0) pg MCHC 31.8 (31.0-37.0) g/dL RDW 14.5 (11.5-15.5) % Plt Count 149 L (150-450) k/uL Neutrophils % 66 % Lymphocytes % 24 % Monocytes % 5 % Eosinophils % 2 % Basophils % 1 % Neutrophils # 4.4 (1.3-7.7) k/uL Lymphocytes # 1.6 (1.0-4.8) k/uL Monocytes # 0.4 (0-1.0) k/uL Eosinophils # 0.2 (0-0.7) k/uL Basophils # 0.0 (0-0.2) k/uL PT (9.0-12.0) sec INR (<1.2) APTT (22.0-30.0) sec Sodium 141 (137-145) mmol/L Potassium 4.3 (3.5-5.1) mmol/L Chloride 107 (98-107) mmol/L Carbon Dioxide 26 (22-30) mmol/L Anion Gap 8 mmol/L BUN 33 H (9-20) mg/dL Creatinine 0.95 (0.66-1.25) mg/dL Est GFR (MDRD) Af Amer >60 (>60 ml/min/1.73 sqM) Est GFR (MDRD) Non-Af >60 (>60 ml/min/1.73 sqM) Glucose 71 L (74-99) mg/dL Calcium 9.1 (8.4-10.2) mg/dL Magnesium 2.1 (1.6-2.3) mg/dL Total Bilirubin 0.6 (0.2-1.3) mg/dL AST 26 (17-59) U/L ALT 33 (21-72) U/L Alkaline Phosphatase 46 (38-126) U/L Total Creatine Kinase 61 (55-170) U/L CK-MB (CK-2) 1.8 (0.0-2.4) ng/mL CK-MB (CK-2) Rel Index 3.0 Troponin I <0.012 (0.000-0.034) ng/mL Total Protein 6.5 (6.3-8.2) g/dL Albumin 3.8 (3.5-5.0) g/dL 07/20/17 Range/Units 12:45 WBC (3.8-10.6) k/uL RBC (4.30-5.90) m/uL Hgb (13.0-17.5) gm/dL Hct (39.0-53.0) % MCV (80.0-100.0) fL MCH (25.0-35.0) pg MCHC (31.0-37.0) g/dL RDW (11.5-15.5) % Plt Count (150-450) k/uL Neutrophils % % Lymphocytes % % Monocytes % % Eosinophils % % Basophils % % Neutrophils # (1.3-7.7) k/uL Lymphocytes # (1.0-4.8) k/uL Monocytes # (0-1.0) k/uL Eosinophils # (0-0.7) k/uL Basophils # (0-0.2) k/uL PT 17.1 H (9.0-12.0) sec INR 1.9 H (<1.2) APTT 30.6 H (22.0-30.0) sec Sodium (137-145) mmol/L Potassium (3.5-5.1) mmol/L Chloride (98-107) mmol/L Carbon Dioxide (22-30) mmol/L Anion Gap mmol/L BUN (9-20) mg/dL Creatinine (0.66-1.25) mg/dL Est GFR (MDRD) Af Amer (>60 ml/min/1.73 sqM) Est GFR (MDRD) Non-Af (>60 ml/min/1.73 sqM) Glucose (74-99) mg/dL Calcium (8.4-10.2) mg/dL Magnesium (1.6-2.3) mg/dL Total Bilirubin (0.2-1.3) mg/dL AST (17-59) U/L ALT (21-72) U/L Alkaline Phosphatase (38-126) U/L Total Creatine Kinase (55-170) U/L CK-MB (CK-2) (0.0-2.4) ng/mL CK-MB (CK-2) Rel Index Troponin I (0.000-0.034) ng/mL Total Protein (6.3-8.2) g/dL Albumin (3.5-5.0) g/dL Disposition Clinical Impression: Atrial fibrillation with RVR Disposition: HOME SELF-CARE Condition: Good Instructions: A-fib (Atrial Fibrillation) (ED) Prescriptions: Diltiazem Oral [Cardizem] 30 mg PO TID #21 tab Referrals: Nehemiah Mosqueda DO [Primary Care Provider] - 1-2 days
[2017-07-20 13:59] LABS: Basophils % (A) 1 %; Eosinophils # (A) 0.2 k/uL (0-0.7); Eosinophils % (A) 2 %; HCT 42.9 % (39.0-53.0); HGB 13.7 gm/dL (13.0-17.5); Lymphocytes # (A) 1.6 k/uL (1.0-4.8); Lymphocytes % (A) 24 %; MCH 31.3 pg (25.0-35.0); MCHC 31.8 g/dL (31.0-37.0); MCV 98.4 fL (80.0-100.0); Mean Platelet Volume 7.9; Monocytes # (A) 0.4 k/uL (0-1.0); Monocytes % (A) 5 %; Neutrophils # (A) 4.4 k/uL (1.3-7.7); Neutrophils % (A) 66 %; Platelet Count 149 k/uL (150-450); RBC 4.36 m/uL (4.30-5.90); RDW 14.5 % (11.5-15.5); WBC 6.6 k/uL (3.8-10.6)
[2017-07-20 14:08] LABS: ALT 33 U/L (21-72); AST 26 U/L (17-59); Albumin 3.8 g/dL (3.5-5.0); Alkaline Phosphatase 46 U/L (38-126); Anion Gap 8 mmol/L; Blood Urea Nitrogen 33 mg/dL (9-20); Calcium 9.1 mg/dL (8.4-10.2); Carbon Dioxide 26 mmol/L (22-30); Chloride 107 mmol/L (98-107); Glucose 71 mg/dL (74-99); INR 1.9 (<1.2); Magnesium 2.1 mg/dL (1.6-2.3); Potassium 4.3 mmol/L (3.5-5.1); Sodium 141 mmol/L (137-145); Total Bilirubin 0.6 mg/dL (0.2-1.3); Total Protein 6.5 g/dL (6.3-8.2)
[2017-07-20 14:09] LABS: Partial Thromboplastin Time 30.6 sec (22.0-30.0); Prothrombin Time 17.1 sec (9.0-12.0)
[2017-07-20 14:21] LABS: Creatine Kinase 61 U/L (55-170)
[2017-07-20 14:33] LABS: Creatine Kinase MB 1.8 ng/mL (0.0-2.4); Troponin I <0.012 ng/mL (0.000-0.034)
--- NOTE | 2017-07-20 15:19 | XR ---
EXAMINATION TYPE: XR chest 2V DATE OF EXAM: 07/20/2017 COMPARISON: Summary 2016 HISTORY: Atrial fibrillation with chest pain TECHNIQUE: Frontal and lateral views of the chest are obtained. FINDINGS: There is no focal air space opacity, pleural effusion, or pneumothorax seen. The cardiac silhouette size is within normal limits. The osseous structures are intact. IMPRESSION: No acute cardiopulmonary process.
[2017-07-20 15:26] VITALS: BP 111/74; PULSE 114; RESP 16
== END 2017-07-20 15:26 | disposition home or self-care (01) ==
LOC: EC 12:03
DX: I48.91 Unspecified atrial fibrillation (principal); K21.9 Gastro-esophageal reflux disease without esophagitis; I10 Essential (primary) hypertension; M19.90 Unspecified osteoarthritis, unspecified site; Z87.891 Personal history of nicotine dependence; Z79.01 Long term (current) use of anticoagulants; Z79.899 Other long term (current) drug therapy; Z88.0 Allergy status to penicillin; Z88.7 Allergy status to serum and vaccine; Z88.5 Allergy status to narcotic agent; Z88.6 Allergy status to analgesic agent; Z88.8 Allergy status to other drugs, medicaments and biological substances
CPT/HCPCS: 36415; 71046; 80053; 82550; 82553; 83735; 84484; 85025; 85610; 85730; 93005; 96374; 99285

== ENCOUNTER 2017-12-16 11:41 | Day surgery (SDC) | payer MEDICARE ==
[2017-12-09 08:21] VITALS: BMI 31.6
[2017-12-16] MEDS: SODIUM CHLORIDE 0.9% 1,000 ML IV SCH (12:29)
[2017-12-16 12:42] LABS: INR 2.9 (<1.2); Prothrombin Time 26.1 sec (9.0-12.0)
[2017-12-16] MEDS ORDERED: HEPARIN SODIUM,PORCINE 10,000 UNIT/ML 1 ML VIAL ONE (12:55)
[2017-12-16] MEDS ORDERED: ePHEDrine SULFATE/0.9% NACL/PF 50 MG/5 ML SYRINGE IV ONE (12:55)
[2017-12-16] MEDS ORDERED: ISOPROTERENOL 250 MCG/1.25 ML SYR IV ONE (12:55)
[2017-12-16] MEDS ORDERED: IV FLUID CONTINUATION 1,000 ML IV ONE (12:55)
[2017-12-16] MEDS ORDERED: PROPOFOL 10 MG/ML 20 ML VIAL IV ONE (12:55)
[2017-12-16] MEDS ORDERED: MIDAZOLAM 2 MG/2 ML VIAL ONE (12:55)
[2017-12-16] MEDS ORDERED: PROTAMINE SULFATE 10 MG/ML 5 ML VIAL IV ONE (12:55)
[2017-12-16] MEDS ORDERED: fentaNYL (PF) 50 MCG/ML 2 ML AMP ONE (12:55)
[2017-12-16] MEDS ORDERED: SUCCINYLCHOLINE CHLORIDE 100 MG/5 ML SYR IV ONE (12:55)
[2017-12-16] MEDS ORDERED: LIDOCAINE 1% INJ 10MG/ML (20 ML MDV) ONE (13:23)
[2017-12-16] MEDS ORDERED: LIDOCAINE 2% INJ 20 MG/ML SQ ONE (13:35)
[2017-12-16] MEDS ORDERED: HEPARIN SODIUM,PORCINE/D5W PMX 25,000 UNIT in DEXTROSE/WATER 1 500ML.BAG IV ONE (13:59)
--- NOTE | 2017-12-16 16:35 | P.PCN ---
Preoperative Diagnosis: Diagnosis Paroxysmal symptomatic atrial fibrillation refractory to drug therapy, Rythmol Procedures performed (PVI - CRYO Ablation) Invasive hemodynamic monitoring while general anesthesia, right femoral arterial line for monitoring and sampling Comprehensive diagnostic EP study with attempted arrhythmia induction CS pacing and recording Drug infusion Catheter the mapping of the tachycardia (NOT 3D mapping) Intracardiac echocardiography Pulmonary vein isolation with transseptal and comprehensive EPS, 12067 Procedure details Patient was brought to the EP lab in a fasting state. Written informed consent was obtained prior to the procedure. Procedure performed under general anesthesia After initial muscle relaxant use, muscle relaxants were not given thereafter in order to assess phrenic nerve during procedure Patient prepped and draped as per protocol Full cryo-set up with standard preparation of the cryoablation tools done Femoral Venous access obtained on the right and left groins Sheaths placed Diagnostic catheters for the high right atrium, phrenic nerve stimulation and pacing, His bundle, RV and coronary sinus placed Intracardiac echo catheter placed Long sheath placed in the right atrium Left and right transseptal catheterization performed under intracardiac echo guidance Intravenous heparin with aCT above 300 Later, catheter positioning and balloon positioning under intracardiac echo Baseline measurements Sinus cycle length 1190, VA interval 157, QRS 123, QT 596 Age 76, HV 39 Comprehensive diagnostic EP study with drug infusion Atrial pacing performed from the high right atrium and the coronary sinus Sinus recovery 1186. AV node Wenckebach block for 40 ms Ventricle pacing performed up to 400 ms Transseptal catheterization performed RA pressure 23/11/8 LA pressure is 37/4/13 Transseptal catheterization performed with standard sheath. The cryoablation sheath was then placed with an over the wire exchange without any acute complications. All 4 pulmonary veins were isolated in the following sequence: Left superior followed by left inferior followed by right superior followed by right inferior The cryo-ablation balloon was placed at the os of each vein 1.5 mL of IV dye was injected to confirm an occluded vein Goal during cryoablation was to achieve -30C in the first 30 seconds. If not the balloon was repositioned to obtain this result After completion of Cryoblation with durations from 180-240 seconds, entrance block was confirmed with the Attain circular catheter in a roving fashion around the antrum of the pulmonary veins Phrenic nerve pacing was performed from the SVC, right innominate vein area and diaphragm voltage was monitored as well as manually Parameter goals for each cryo freeze -30C by 30 seconds -40C by 60 seconds Mediated between minus 40-55 Thaw time greater than 10 seconds Balloon visualized by intracardiac echo to ensure that the proximal one third was within the left atrium/antrum Left superior pulmonary vein 2 cryo lesions, complete isolation line suboptimal temperatures despite good occlusion because of the proximity of the inferior vein Left inferior pulmonary vein 2 cryo lesions complete isolation, suboptimal temperatures despite excellent occlusion because of proximity of the superior vein Right superior pulmonary vein, during phrenic nerve pacing 1 cryo lesion for 4 minutes, complete isolation Right inferior pulmonary vein, during phrenic nerve pacing 2 cryo lesions 3 minutes each complete isolation At the end of the procedure the Achieve catheter was once again used to check for entrance block Phrenic nerve stimulation was performed to confirm diaphragmatic stimulation the end of the procedure Cine fluoroscopy was performed at the very end of the procedure to confirm movement of both diaphragms with inspiration and expiration At the end of the procedure the patient was extubated Heparin was reversed Venous sheaths were removed and hemostasis assured Result Successful pulmonary vein isolation using cryo-ablation Complete entrance block in all 4 veins confirmed No evidence for phrenic nerve injury
[2017-12-16] MEDS ORDERED: HYDROcodone/APAP 5-325MG 1 EACH TAB PO PRN (16:42)
[2017-12-16] MEDS ORDERED: ACETAMINOPHEN IV (For NPO) 1,000 MG in EMPTY BAG 1 BAG IVPB ONE (16:42)
[2017-12-16] MEDS ORDERED: ACETAMINOPHEN TAB 325 MG TAB PO PRN (16:42)
[2017-12-16] MEDS ORDERED: IOPAMIDOL-370 100ML BTL INJ ONE (16:55)
[2017-12-16] MEDS ORDERED: ACETAMINOPHEN IV (For NPO) 1,000 MG/100 ML VIAL IVPB ONE (17:30)
[2017-12-16] MEDS: LACTATED RINGERS 1,000 ML IV SCH (17:50)
[2017-12-16] MEDS ORDERED: WARFARIN 5 MG TAB PO SCH (18:00)
[2017-12-16] MEDS: CARVEDILOL 12.5 MG TAB PO SCH (18:10)
[2017-12-16] MEDS: DILTIAZEM ORAL 30 MG TAB PO SCH (19:33)
[2017-12-16] MEDS: TAMSULOSIN 0.4 MG CAP.ER.24H PO SCH (19:33)
[2017-12-16 23:30] VITALS: RESP 16
[2017-12-17] MEDS: CARVEDILOL 12.5 MG TAB PO SCH ×2 (08:39→18:27)
[2017-12-17] MEDS: TAMSULOSIN 0.4 MG CAP.ER.24H PO SCH (08:40)
[2017-12-17] MEDS: DILTIAZEM ORAL 30 MG TAB PO SCH ×2 (08:40→18:34)
--- NOTE | 2017-12-17 10:43 | DS ---
DISCHARGE SUMMARY Mr. Irizarry is an 82-year-old male patient with paroxysmal atrial fibrillation with RVR. He underwent cryoablation of the pulmonary veins yesterday successfully without any acute complications. He is doing well. He had some bleeding at night via the groins, but this morning he had absolutely no hematoma and his groins are soft and with minimal tenderness. Heart sounds are normal. Breath sounds are clear. No rhonchi, no crackles. No murmurs, no gallop, no rub. No JVD. He has been sitting up at the edge of the bed now and he will be ambulating in the hallways. He denies any chest discomfort. No sore throat. No swallowing difficulty. No breathing trouble. PLAN: Home by 6 p.m. if he is ambulating in the hallways without any problems and if he has no further groin bleeding. Follow up with Dr. Martinez within the next 5 to 7 days and continue current medications including anticoagulation. MMODL / IJN: [id number] /
[2017-12-17] MEDS: SODIUM CHLORIDE 0.9% 1,000 ML IV SCH (15:08)
[2017-12-17] MEDS: LACTATED RINGERS 1,000 ML IV SCH (15:08)
[2017-12-17 16:32] VITALS: BP 125/48; PULSE 62; TEMP 98.6
[2017-12-17] MEDS ORDERED: WARFARIN 7.5 MG TAB PO SCH (18:00)
== END 2017-12-17 18:40 | disposition home or self-care (01) ==
LOC: CATHEP 11:41 → 3OBS 15:50 → CATHEP 12-17 18:40
PROVIDERS: ATTEND Internal Medicine Clinical Cardiac Electrophysiology
DX: I48.0 Paroxysmal atrial fibrillation (principal); R07.89 Other chest pain; I11.9 Hypertensive heart disease without heart failure; I08.0 Rheumatic disorders of both mitral and aortic valves; I48.92 Unspecified atrial flutter; G47.33 Obstructive sleep apnea (adult) (pediatric); N40.0 Benign prostatic hyperplasia without lower urinary tract symptoms; K21.9 Gastro-esophageal reflux disease without esophagitis; M19.90 Unspecified osteoarthritis, unspecified site; Z99.89 Dependence on other enabling machines and devices; Z79.01 Long term (current) use of anticoagulants; Z79.899 Other long term (current) drug therapy; Z88.5 Allergy status to narcotic agent; Z88.0 Allergy status to penicillin; Z88.7 Allergy status to serum and vaccine; Z88.8 Allergy status to other drugs, medicaments and biological substances; Z87.891 Personal history of nicotine dependence
CPT/HCPCS: 85347 ×2; 93662; 93609; 93656; 85610; C1769 ×6; C1894 ×3; C1730 ×2; C1759; C1893; C1733; C1766; J2001; J1644; J0131; Q9967

== ENCOUNTER → 2017-12-20 | Outpatient (CLI) | payer MEDICARE ==
--- NOTE | 2017-12-20 15:52 | US ---
EXAMINATION TYPE: US lower ext pseudo artery LT DATE OF EXAM: 12/20/2017 COMPARISON: NONE CLINICAL HISTORY: R10.30 PAIN LT GROIN. pt has bilateral groin stick for ablation 5 days ago, now lef t leg pain especially when standing EXAM PERFORMED: Grayscale and color Doppler duplex imaging performed of the groin, post cardiac christo ter to assess for pseudoaneurysm. SIDE PERFORMED: left Color and Waveform Doppler performed to assess for the presence of pseudoaneurysm; Scanned over the left groin and area of pain. There is a large heterogeneous 11.3 x 2.5 x 5.4cm demi georgette with a small inferior component that is demonstrating arterial flow. IMPRESSION: Heterogenous 11.3 x 2.5 x 5.4 cm hematoma containing arterial flow within the left groin. No identifi able neck to suggest pseudoaneurysm. However given arterial flow there is potential for continuation of increase in size and therefore if this continues to enlarge the patient should return to the ER or clinician office if open for reevaluation of potential iatrogenic thrombosis procedure. Findings wer e relayed to the ordering physician office.
== END | disposition home or self-care (01) ==
LOC: RADUSWWP 15:08
PROVIDERS: ATTEND Internal Medicine Clinical Cardiac Electrophysiology
DX: S30.1XXA Contusion of abdominal wall, initial encounter (principal)
CPT/HCPCS: 93975

== ENCOUNTER → 2018-01-13 | Outpatient (CLI) | payer MEDICARE ==
--- NOTE | 2018-01-13 14:15 | US ---
EXAMINATION TYPE: US lower ext pseudo artery LT DATE OF EXAM: 01/13/2018 COMPARISON: NONE CLINICAL HISTORY: Swelling R60.9. EXAM PERFORMED: Grayscale and color Doppler duplex imaging performed of the groin, post cardiac christo ter to assess for pseudoaneurysm. SIDE PERFORMED: Left Color and Waveform Doppler performed to assess for the presence of pseudoaneurysm; heart cath done on e month prior Is there ultrasound evidence of a pseudoaneurysm: no Is there evidence of AV shunting: no Is there a fluid collection present: no Patients area of pain also scanned at pop fossa and lateral to left knee, pop fossa appears wnl, bloo d flow seen in popliteal v. No fluid collection seen at patients area of pain lateral. IMPRESSION: Resolution of the previously seen 11.3 cm hematoma on the prior exam of 12/20/2017 within the left groin. No suspicious finding in the region of the patient's pain within the popliteal fossa. Vasculature appears patent focally.
== END | disposition home or self-care (01) ==
LOC: RADUSWWP 13:30
PROVIDERS: ATTEND Internal Medicine Cardiovascular Disease
DX: R60.0 Localized edema (principal); Z95.828 Presence of other vascular implants and grafts
CPT/HCPCS: 93975

== ENCOUNTER 2018-01-15 08:16 | Emergency (ER) | payer MEDICARE ==
[2018-01-15 08:23] VITALS: RESP 18
--- NOTE | 2018-01-15 08:59 | ED ---
Extremity Problem HPI - General Chief complaint: Extremity Problem,Nontraumatic Stated complaint: POSS BLOODCLOT Time Seen by Provider: 01/15/18 08:25 Source: patient, RN notes reviewed Mode of arrival: ambulatory Limitations: no limitations - History of Present Illness Initial comments: This is a 82-year-old male presents emergency Department chief complaint left leg pain and swelling. Patient states he had a cardiac ablation performed by Dr. Lima 4 weeks ago. Patient states that he initially had a large hematoma which all resolved by has now noticed new bruising to his left thigh and calf region and states that he has pain in his knee. He states this is worsened over the last few days he does have an ultrasound on Saturday which did not reveal any cause for his pain. Patient states that he does take Coumadin currently last time he had his INR checked was 1 week ago. He states he is attentive follow-up with cardiology but they've had no physicians in the office to evaluate the patient. They told him to continue taking Tylenol apply ice. He denies any chest pain or shortness breath. - Related Data Home Medications Medication Instructions Recorded Confirmed Carvedilol [Coreg] 25 mg PO BID@07/12/14 01/15/18 Tamsulosin HCl [Flomax] 0.4 mg PO BID@07/12/14 01/15/18 Multivitamins, Thera [Multivitamin 1 tab PO DAILY 07/05/17 01/15/18 (formulary)] Warfarin [Coumadin] 5 mg PO MOFR@1700 07/20/17 01/15/18 Warfarin [Coumadin] 7.5 mg PO SUTUWETHSA@1700 12/09/17 01/15/18 Diltiazem Oral [Cardizem*] 30 mg PO TID@,,01/15/18 01/15/18 Allergies Allergy/AdvReac Type Severity Reaction Status Date / Time albuterol [From Ventolin HFA] Allergy Rapid Verified 01/15/18 10:08 Heart Rate amiodarone HCl Allergy LUNGS/EYE Verified 01/15/18 10:08 [From Cordarone] PROBLEMS codeine Allergy Nausea & Verified 01/15/18 10:08 Vomiting enalapril maleate Allergy Cough Verified 01/15/18 10:08 [From Vasotec] enalaprilat dihydrate Allergy Cough Verified 01/15/18 10:08 [From Vasotec] hydromorphone HCl Allergy Nausea & Verified 01/15/18 10:08 [From Dilaudid] Vomiting isosorbide mononitrate Allergy Unknown Verified 01/15/18 10:08 [From Imdur] loratadine [From Claritin] Allergy Rapid Verified 01/15/18 10:08 Heart Rate morphine Allergy Nausea & Verified 01/15/18 10:08 Vomiting Penicillins Allergy Rash/Hives Verified 01/15/18 10:08 procainamide HCl Allergy "FLUID ON Verified 01/15/18 10:08 [From Pronestyl] HEART" tetanus toxoid, adsorbed Allergy "JOINT Verified 01/15/18 10:08 STIFFNESS" Review of Systems ROS Statement: Those systems with pertinent positive or pertinent negative responses have been documented in the HPI. ROS Other: All systems not noted in ROS Statement are negative. Past Medical History Past Medical History: Atrial Fibrillation, Atrial Flutter, GERD/Reflux, Hypertension, Osteoarthritis (OA), Pneumonia, Renal Disease, Skin Disorder Additional Past Medical History / Comment(s): Pt recently had an influenza and was on an antibiotic, recently told he has a "spot" on his R lung-not worked up yet, Afib with RVR in past, no CPAP necessary, kidney stones, psoriasis, reactive airway, urinary frequency. History of Any Multi-Drug Resistant Organisms: None Reported Past Surgical History: Cardiac Ablation, Joint Replacement, Orthopedic Surgery Additional Past Surgical History / Comment(s): cardiac ablation Past Anesthesia/Blood Transfusion Reactions: No Reported Reaction Past Psychological History: No Psychological Hx Reported Smoking Status: Former smoker Past Alcohol Use History: None Reported Past Drug Use History: None Reported - Past Family History Mother Family Medical History: Cancer Additional Family Medical History / Comment(s): Mother of lung cancer Father Family Medical History: Cancer Additional Family Medical History / Comment(s): Father of prostrate cancer. Brother(s) Family Medical History: Cancer Additional Family Medical History / Comment(s): Patient has one brother with history of atrial fibrillation and kidney cancer, second brother with valvular heart disease, third brother with Parkinson's. Daughter(s) Additional Family Medical History / Comment(s): Patient has 3 children and one daughter from complications from obesity. Other 2 children have no major medical problems. General Exam Limitations: no limitations General appearance: alert, in no apparent distress Respiratory exam: Present: normal lung sounds bilaterally. Absent: respiratory distress, wheezes, rales, rhonchi, stridor Cardiovascular Exam: Present: regular rate, normal rhythm, normal heart sounds. Absent: systolic murmur, diastolic murmur, rubs, gallop, clicks Extremities exam: Present: other (Left leg there is ecchymosis noted in the calf , left thigh region there is mild swelling noted there is no left groin tenderness there is moderate tenderness to the left thigh and calf there is a pedal pulse. Left leg and is equal to the right. There is no change and warmth of the extremity) Skin exam: Present: warm, dry Course Vital Signs 01/15/18 08:20 Temperature 97.8 F Pulse Rate 65 Respiratory 18 Rate Blood Pressure 152/70 O2 Sat by Pulse 99 Oximetry Medical Decision Making - Medical Decision Making 82-year-old male present emergency from for left leg pain and swelling. Patient is found to have a hematoma of his left thigh region. Patient is noted not to have any DVT his INR is currently 2.6 and currently on Coumadin therapy. Facial follow-up cardiology/pcp and return for any worsening symptoms. - Lab Data Result diagrams: 01/15/18 08:37 Lab Results 01/15/18 01/15/18 Range/Units 08:37 08:37 WBC 4.6 (3.8-10.6) k/uL RBC 3.77 L (4.30-5.90) m/uL Hgb 12.2 L (13.0-17.5) gm/dL Hct 36.2 L (39.0-53.0) % MCV 95.9 (80.0-100.0) fL MCH 32.3 (25.0-35.0) pg MCHC 33.6 (31.0-37.0) g/dL RDW 14.2 (11.5-15.5) % Plt Count 167 (150-450) k/uL Neutrophils % 63 % Lymphocytes % 26 % Monocytes % 5 % Eosinophils % 4 % Basophils % 1 % Neutrophils # 2.9 (1.3-7.7) k/uL Lymphocytes # 1.2 (1.0-4.8) k/uL Monocytes # 0.2 (0-1.0) k/uL Eosinophils # 0.2 (0-0.7) k/uL Basophils # 0.0 (0-0.2) k/uL PT 23.5 H (9.0-12.0) sec INR 2.6 H (<1.2) APTT 35.0 H (22.0-30.0) sec Disposition Clinical Impression: Hematoma of left lower extremity Disposition: HOME SELF-CARE Condition: Stable Instructions: Hematoma (ED) Additional Instructions: Please return to the Emergency Department if symptoms worsen or any other concerns. Is patient prescribed a controlled substance at d/c from ED?: No Referrals: Nehemiah Mosqueda DO [Primary Care Provider] - 1-2 days Time of Disposition: 10:14
[2018-01-15 09:01] LABS: INR 2.6 (<1.2); Prothrombin Time 23.5 sec (9.0-12.0)
[2018-01-15 09:09] LABS: Basophils % (A) 1 %; Eosinophils # (A) 0.2 k/uL (0-0.7); Eosinophils % (A) 4 %; HCT 36.2 % (39.0-53.0); HGB 12.2 gm/dL (13.0-17.5); Lymphocytes # (A) 1.2 k/uL (1.0-4.8); Lymphocytes % (A) 26 %; MCH 32.3 pg (25.0-35.0); MCHC 33.6 g/dL (31.0-37.0); MCV 95.9 fL (80.0-100.0); Mean Platelet Volume 7.4; Monocytes # (A) 0.2 k/uL (0-1.0); Monocytes % (A) 5 %; Neutrophils # (A) 2.9 k/uL (1.3-7.7); Neutrophils % (A) 63 %; Platelet Count 167 k/uL (150-450); RBC 3.77 m/uL (4.30-5.90); RDW 14.2 % (11.5-15.5); WBC 4.6 k/uL (3.8-10.6)
--- NOTE | 2018-01-15 09:32 | US ---
EXAMINATION TYPE: US venous doppler duplex LE LT DATE OF EXAM: 01/15/2018 9:17 AM COMPARISON: Left lower extremity venous ultrasound October 10, 2011 CLINICAL HISTORY: Pain. Left lateral lower thigh pain x 3 days with increased bruising to left latera l thigh; post cardiac ablation 12/16/17 and bilateral groin arteries were accessed. SIDE PERFORMED: Left TECHNIQUE: The lower extremity deep venous system is examined utilizing real time linear array sonog ade with graded compression, doppler sonography and color-flow sonography. VESSELS IMAGED: Common Femoral Vein Deep Femoral Vein Greater Saphenous Vein * Femoral Vein Popliteal Vein Small Saphenous Vein * Proximal Calf Veins (* superficial vessels) Left Leg: Negative for DVT. At patient's area of pain a left lateral and lower thigh an anechoic cys tic area = 1.7 x 1.4 x 1.0cm and is seen surrounded by small amount of fluid posteriorly and noted w ithin the muscle layer. Left thigh is compared to normal appearing Right muscle tissue at same level. Grayscale, color doppler, spectral doppler imaging performed of the deep veins of the left lower extr emity. There is normal flow, compressibility, vascular waveforms. IMPRESSION: No evidence of acute DVT in the left lower extremity. Nonspecific deep 1.7 x 1.0 cm thin -walled fluid collection in the left lateral thigh at site of pain could reflect post procedure serom a or hematoma. Appears to be within the thigh muscle at this level.
[2018-01-15 10:28] VITALS: BP 153/68; PULSE 69; TEMP 97.6
== END 2018-01-15 10:27 | disposition home or self-care (01) ==
LOC: EC 08:16
DX: S80.12XA Contusion of left lower leg, initial encounter (principal); S70.12XA Contusion of left thigh, initial encounter; M79.605 Pain in left leg; I48.91 Unspecified atrial fibrillation; I10 Essential (primary) hypertension; Z87.891 Personal history of nicotine dependence; Z79.01 Long term (current) use of anticoagulants; Z79.899 Other long term (current) drug therapy; Z88.0 Allergy status to penicillin; Z88.5 Allergy status to narcotic agent; Z88.8 Allergy status to other drugs, medicaments and biological substances; Z87.448 Personal history of other diseases of urinary system
CPT/HCPCS: 36415; 85025; 85610; 85730; 99284

== ENCOUNTER → 2018-01-23 | Outpatient (CLI) | payer MEDICARE | END | disposition home or self-care (01) | LOC: LABWHC1 10:40 | PROVIDERS: ATTEND Family Medicine | DX: I48.91 Unspecified atrial fibrillation (principal) | CPT/HCPCS: 93005 ==

== ENCOUNTER → 2018-10-23 | Outpatient (CLI) | payer MEDICARE ==
[2018-10-23 08:24] LABS: Blood Urea Nitrogen 29 mg/dL (9-20)
--- NOTE | 2018-10-23 10:58 | CT ---
EXAMINATION TYPE: CT urogram wo/w con DATE OF EXAM: 10/23/2018 COMPARISON: None HISTORY: Hematuria, stone disease and incontinence CT DLP: 3067 mGycm CONTRAST: Performed and without and with IV Contrast, patient injected with 100 ml mL of Isovue 370. CT Urography was performed with unenhanced followed by enhanced images of the kidneys, ureters and ur inary bladder. Delayed images were obtained. 3d reconstruction was perfromed at a separate work sta tion. FINDINGS: KIDNEYS/BLADDER: No hydronephrosis. No nephrolithiasis. No disctinct renal mass. Urinary bladder g rossly unremarkable. LUNG BASES-: No visible nodule. No infiltrate. LIVER/GB: No calcified gallstones. No space occupying hepatic lesion. Biliary tree is of normal ca liber. PANCREAS: No inflammation. No distinct mass. SPLEEN: No splenic enlargement. No lesion seen. ADRENALS: No nodule. No thickening. BOWEL: Normal appendix. Normal bowel caliber. No inflammation. GENITAL ORGANS: No gross abnormality. LYMPH NODES: No greater than 1cm abdominal or pelvic lymph nodes are appreciated. AORTA: 3.1 cm abdominal aortic aneurysm. OSSEOUS STRUCTURES: No significant abnormality is seen. OTHER: No significant additional abnormality is seen. IMPRESSION: 1. No significant abnormality to account for the patient's symptoms. Streak artifact from patient's h ip prosthesis limits evaluation of the pelvis.
== END | disposition home or self-care (01) ==
LOC: RADCTMAIN 07:33
PROVIDERS: ATTEND Urology
DX: R31.9 Hematuria, unspecified (principal); R32 Unspecified urinary incontinence
CPT/HCPCS: 82565; 84520; 74178; 36415; 74400; Q9967

== ENCOUNTER 2019-03-10 05:01 | Emergency (ER) | payer MEDICARE ==
[2019-03-10] MEDS ORDERED: SODIUM CHLORIDE 0.9% 500 ML 500 ML IV STA (05:16)
--- NOTE | 2019-03-10 05:16 | ED ---
General Adult HPI - General Stated complaint: poss kidney stone Time Seen by Provider: 03/10/19 05:07 Source: patient Mode of arrival: ambulatory Limitations: no limitations - History of Present Illness Initial comments: There is an 83-year-old male presents the ER today for reevaluation of 3-4 days of right-sided abdominal pain. Patient saw his primary care physician and was d iagnosed with a urinary tract infection he's been taking his oral antibiotics but reports he continues to have pain in his right lower abdomen radiating to his right flank. Patient was concerning may have a kidney stone psychiatric the ER for evaluation. Patient denies any fevers chills nausea or vomiting he's been eating and drinking well. He denies any dysuria or gross hematuria. He reports his last bowel movement was this morning. - Related Data Home Medications Medication Instructions Recorded Confirmed Carvedilol [Coreg] 25 mg PO BID@,07/12/14 01/15/18 Tamsulosin HCl [Flomax] 0.4 mg PO BID@,07/12/14 01/15/18 Multivitamins, Thera [Multivitamin 1 tab PO DAILY 07/05/17 01/15/18 (formulary)] Warfarin [Coumadin] 5 mg PO MOFR@1700 07/20/17 01/15/18 Warfarin [Coumadin] 7.5 mg PO SUTUWETHSA@1700 12/09/17 01/15/18 Diltiazem Oral [Cardizem*] 30 mg PO TID@,,01/15/18 01/15/18 Allergies Allergy/AdvReac Type Severity Reaction Status Date / Time albuterol [From Ventolin HFA] Allergy Rapid Verified 01/15/18 10:08 Heart Rate amiodarone HCl Allergy LUNGS/EYE Verified 01/15/18 10:08 [From Cordarone] PROBLEMS codeine Allergy Nausea & Verified 01/15/18 10:08 Vomiting enalapril maleate Allergy Cough Verified 01/15/18 10:08 [From Vasotec] enalaprilat dihydrate Allergy Cough Verified 01/15/18 10:08 [From Vasotec] hydromorphone HCl Allergy Nausea & Verified 01/15/18 10:08 [From Dilaudid] Vomiting isosorbide mononitrate Allergy Unknown Verified 01/15/18 10:08 [From Imdur] loratadine [From Claritin] Allergy Rapid Verified 01/15/18 10:08 Heart Rate morphine Allergy Nausea & Verified 01/15/18 10:08 Vomiting Penicillins Allergy Rash/Hives Verified 01/15/18 10:08 procainamide HCl Allergy "FLUID ON Verified 01/15/18 10:08 [From Pronestyl] HEART" tetanus toxoid, adsorbed Allergy "JOINT Verified 01/15/18 10:08 STIFFNESS" Review of Systems ROS Statement: Those systems with pertinent positive or pertinent negative responses have been documented in the HPI. ROS Other: All systems not noted in ROS Statement are negative. Past Medical History Past Medical History: Atrial Fibrillation, Atrial Flutter, GERD/Reflux, Hypertension, Osteoarthritis (OA), Pneumonia, Renal Disease, Skin Disorder Additional Past Medical History / Comment(s): Pt recently had an influenza and was on an antibiotic, recently told he has a "spot" on his R lung-not worked up yet, Afib with RVR in past, no CPAP necessary, kidney stones, psoriasis, reactive airway, urinary frequency. History of Any Multi-Drug Resistant Organisms: None Reported Past Surgical History: Cardiac Ablation, Joint Replacement, Orthopedic Surgery Additional Past Surgical History / Comment(s): cardiac ablation, kidney surgery 1954 Past Anesthesia/Blood Transfusion Reactions: No Reported Reaction Past Psychological History: No Psychological Hx Reported Smoking Status: Former smoker Past Alcohol Use History: None Reported Past Drug Use History: None Reported - Past Family History Mother Family Medical History: Cancer Additional Family Medical History / Comment(s): Mother of lung cancer Father Family Medical History: Cancer Additional Family Medical History / Comment(s): Father of prostrate cancer. Brother(s) Family Medical History: Cancer Additional Family Medical History / Comment(s): Patient has one brother with history of atrial fibrillation and kidney cancer, second brother with valvular h eart disease, third brother with Parkinson's. Daughter(s) Additional Family Medical History / Comment(s): Patient has 3 children and one daughter from complications from obesity. Other 2 children have no major medical problems. General Exam - General Exam Comments Initial Comments: Physical Exam GENERAL: Patient is well-developed and well-nourished. Patient is nontoxic and well-hydrated and is in no distress. HENT: Normocephalic, Atraumatic. EYES: PERRL, EOMI PULMONARY: Unlabored respirations. No audible rales rhonchi or wheezing was noted. CARDIOVASCULAR: There is a regular rate and rhythm without any murmurs gallops or rubs. ABDOMEN: Soft and nontender with normal bowel sounds. Mild tenderness to deep palpation throughout the abdomen SKIN: Skin is clear with no lesions or rashes and otherwise unremarkable. : Deferred NEUROLOGIC: Patient is alert and oriented x3. Moving all extremities spontaneously MUSCULOSKELETAL: Normal extremities with adequate strength and full range of motion. No lower extremity swelling or edema. No calf tenderness. PSYCHIATRIC: Normal psychiatric evaluation. Limitations: no limitations Course Vital Signs 03/10/19 05:07 Temperature 98.3 F Pulse Rate 62 Respiratory 18 Rate Blood Pressure 184/72 O2 Sat by Pulse 98 Oximetry Medical Decision Making - Medical Decision Making Patient was seen and evaluated, history is obtained from patient Labs and imaging were ordered Urinalysis with her scopic hematuria Computed tomography scan concerning for significant stool Birden. This was discussed with the patient. I offered the patient the options for observation in the hospital versus discharge home and treatment for constipation. Patient's comfortable with the plan for discharge home, return parameters were discussed all questions pertaining care were answered patient was discharged home in stable condition. - Lab Data Result diagrams: 03/10/19 05:20 03/10/19 05:20 Lab Results 03/10/19 03/10/19 03/10/19 Range/Units 05:20 05:20 05:20 WBC 6.2 (3.8-10.6) k/uL RBC 4.42 (4.30-5.90) m/uL Hgb 13.6 (13.0-17.5) gm/dL Hct 41.7 (39.0-53.0) % MCV 94.4 (80.0-100.0) fL MCH 30.8 (25.0-35.0) pg MCHC 32.7 (31.0-37.0) g/dL RDW 14.3 (11.5-15.5) % Plt Count 163 (150-450) k/uL Neutrophils % 63 % Lymphocytes % 25 % Monocytes % 6 % Eosinophils % 5 % Basophils % 1 % Neutrophils # 3.9 (1.3-7.7) k/uL Lymphocytes # 1.5 (1.0-4.8) k/uL Monocytes # 0.4 (0-1.0) k/uL Eosinophils # 0.3 (0-0.7) k/uL Basophils # 0.0 (0-0.2) k/uL Sodium 142 (137-145) mmol/L Potassium 4.4 (3.5-5.1) mmol/L Chloride 107 (98-107) mmol/L Carbon Dioxide 27 (22-30) mmol/L Anion Gap 8 mmol/L BUN 22 H (9-20) mg/dL Creatinine 0.72 (0.66-1.25) mg/dL Est GFR (CKD-EPI)AfAm >90 (>60 ml/min/1.73 sqM) Est GFR (CKD-EPI)NonAf 87 (>60 ml/min/1.73 sqM) Glucose 87 (74-99) mg/dL Calcium 9.2 (8.4-10.2) mg/dL Total Bilirubin 0.3 (0.2-1.3) mg/dL AST 36 (17-59) U/L ALT 26 (21-72) U/L Alkaline Phosphatase 56 (38-126) U/L Total Protein 6.8 (6.3-8.2) g/dL Albumin 4.0 (3.5-5.0) g/dL Urine Color Yellow Urine Appearance Clear (Clear) Urine pH 5.5 (5.0-8.0) Ur Specific [place] 1.008 (1.001-1.035) Urine Protein Negative (Negative) Urine Glucose (UA) Negative (Negative) Urine Ketones Negative (Negative) Urine Blood Small H (Negative) Urine Nitrite Negative (Negative) Urine Bilirubin Negative (Negative) Urine Urobilinogen <2.0 (<2.0) mg/dL Ur Leukocyte Esterase Negative (Negative) Urine RBC <1 (0-5) /hpf Disposition Clinical Impression: Abdominal pain Disposition: HOME SELF-CARE Condition: Stable Instructions (If sedation given, give patient instructions): Abdominal Pain (ED) Is patient prescribed a controlled substance at d/c from ED?: No Referrals: Nehemiah Mosqueda DO [Primary Care Provider] - 1-2 days
[2019-03-10] MEDS ORDERED: KETOROLAC 30 MG/ML 1 ML VIAL IVP ONE (05:18)
[2019-03-10 05:31] LABS: Basophils % (A) 1 %; Eosinophils # (A) 0.3 k/uL (0-0.7); Eosinophils % (A) 5 %; HCT 41.7 % (39.0-53.0); HGB 13.6 gm/dL (13.0-17.5); Lymphocytes # (A) 1.5 k/uL (1.0-4.8); Lymphocytes % (A) 25 %; MCH 30.8 pg (25.0-35.0); MCHC 32.7 g/dL (31.0-37.0); MCV 94.4 fL (80.0-100.0); Mean Platelet Volume 7.9; Monocytes # (A) 0.4 k/uL (0-1.0); Monocytes % (A) 6 %; Neutrophils # (A) 3.9 k/uL (1.3-7.7); Neutrophils % (A) 63 %; Platelet Count 163 k/uL (150-450); RBC 4.42 m/uL (4.30-5.90); RDW 14.3 % (11.5-15.5); WBC 6.2 k/uL (3.8-10.6)
[2019-03-10 05:40] LABS: ALT 26 U/L (21-72); AST 36 U/L (17-59); African American GFR (CKD) >90 (>60 ml/min/1.73 sqM); Alkaline Phosphatase 56 U/L (38-126); Anion Gap 8 mmol/L; Blood Urea Nitrogen 22 mg/dL (9-20); Calcium 9.2 mg/dL (8.4-10.2); Carbon Dioxide 27 mmol/L (22-30); Chloride 107 mmol/L (98-107); Glucose 87 mg/dL (74-99); Potassium 4.4 mmol/L (3.5-5.1); Sodium 142 mmol/L (137-145); Total Bilirubin 0.3 mg/dL (0.2-1.3); Total Protein 6.8 g/dL (6.3-8.2)
[2019-03-10 05:50] VITALS: RESP 18
[2019-03-10 05:55] LABS: Appearance,Urine Clear (Clear); Bilirubin,Urine Negative (Negative); Blood,Urine Small (Negative); Color,Urine Yellow; Glucose,Urine (UA) Negative (Negative); Ketones,Urine Negative (Negative); Leukocyte Esterase,Urine Negative (Negative); Nitrite,Urine Negative (Negative); PH, Urine 5.5 (5.0-8.0); Protein,Urine Negative (Negative); RBC,Urine <1 /hpf (0-5); Specific Gravity,Urine 1.008 (1.001-1.035); Urobilinogen,Urine <2.0 mg/dL (<2.0)
--- NOTE | 2019-03-10 06:14 | XR ---
EXAM: XR Abdomen, 1 View CLINICAL HISTORY: ITS.REASON XR Reason: abdominal pain TECHNIQUE: Frontal supine view of the abdomen/pelvis. COMPARISON: 05/20/17 FINDINGS: Gastrointestinal tract: Copious amounts of stool throughout the colon. Somewhat prominent mildly dilated loops of small bowel. Bones/joints: No acute fracture. No dislocation. Bilateral hip arthroplasty hardware is intact. IMPRESSION: 1. Copious amount stool throughout the colon. 2. Mildly dilated loops of small bowel, cannot exclude ileus versus partial small bowel obstruction.
[2019-03-10] MEDS ORDERED: LACTULOSE 20 GM/30 ML CUP PO ONE (06:49)
[2019-03-10] MEDS ORDERED: MAGNESIUM CITRATE 296 ML BOTTLE PO ONE (06:49)
[2019-03-10 07:10] VITALS: BP 138/70; PULSE 82; TEMP 97.9
== END 2019-03-10 07:10 | disposition home or self-care (01) ==
LOC: EC 05:01
DX: R10.31 Right lower quadrant pain (principal); R31.9 Hematuria, unspecified; I48.91 Unspecified atrial fibrillation; I48.92 Unspecified atrial flutter; I10 Essential (primary) hypertension; M19.90 Unspecified osteoarthritis, unspecified site; Z96.698 Presence of other orthopedic joint implants; Z87.442 Personal history of urinary calculi; Z87.891 Personal history of nicotine dependence; Z79.01 Long term (current) use of anticoagulants; Z79.899 Other long term (current) drug therapy; Z88.8 Allergy status to other drugs, medicaments and biological substances; Z88.5 Allergy status to narcotic agent; Z88.0 Allergy status to penicillin; Z88.7 Allergy status to serum and vaccine; Z53.29 Procedure and treatment not carried out because of patient's decision for other reasons
CPT/HCPCS: 99284; 96374; 36415; 80053; 85025; 81001; 74018; J1885

== ENCOUNTER → 2019-03-17 | Outpatient (CLI) | payer MEDICARE ==
[2019-03-17 18:05] LABS: African American GFR (CKD) 92.5 (60.0-200.0)
== END | disposition home or self-care (01) ==
LOC: LABWHC1 10:10
PROVIDERS: ATTEND Urology
DX: R35.0 Frequency of micturition (principal)
CPT/HCPCS: 36415; 82565; 84520

== ENCOUNTER → 2019-03-19 | Outpatient (CLI) | payer MEDICARE ==
--- NOTE | 2019-03-19 09:01 | CT ---
EXAMINATION TYPE: CT urogram wo/w con DATE OF EXAM: 03/19/2019 COMPARISON: 10/23/2018 HISTORY: Hematuria CT DLP: 3888 mGycm CONTRAST: Performed and without and with IV Contrast, patient injected with 100 mL of Isovue 300. CT Urography was performed with unenhanced followed by enhanced images of the kidneys, ureters and ur inary bladder. Delayed images were obtained. 3d reconstruction was perfromed at a separate work sta tion. FINDINGS: KIDNEYS/BLADDER: No hydronephrosis. No nephrolithiasis. Stable simple appearing renal cortical cyst s measuring 4.2 cm right kidney and several cysts left kidney measuring up to 1.9 cm. No solid renal lesions identified. Urinary bladder grossly unremarkable. LUNG BASES-: No visible nodule. No infiltrate. LIVER/GB: There is evidence of cholelithiasis. No space occupying hepatic lesion. Biliary tree is of normal caliber. PANCREAS: No inflammation. No distinct mass. SPLEEN: No splenic enlargement. No lesion seen. ADRENALS: No nodule. No thickening. BOWEL: Normal appendix. Normal bowel caliber. No inflammation. GENITAL ORGANS: No gross abnormality. LYMPH NODES: No greater than 1cm abdominal or pelvic lymph nodes are appreciated. AORTA: Ectatic atheromatous change abdominal aorta. OSSEOUS STRUCTURES: Bilateral hip prosthesis of the hips resulting in streak artifact of the pelvis. OTHER: No significant additional abnormality is seen. IMPRESSION: 1. Grossly unremarkable urinary bladder. Bilateral renal cortical cysts.
== END | disposition home or self-care (01) ==
LOC: RADCTMAIN 06:34
PROVIDERS: ATTEND Urology
DX: N28.1 Cyst of kidney, acquired (principal); R35.0 Frequency of micturition
CPT/HCPCS: 74178; 74400; Q9967

== ENCOUNTER → 2019-05-08 | Outpatient (CLI) | payer MEDICARE ==
--- NOTE | 2019-05-08 10:57 | XR ---
EXAMINATION TYPE: XR chest 2V DATE OF EXAM: 05/08/2019 COMPARISON: 07/20/2017 HISTORY: Pneumonia and bronchitis TECHNIQUE: Frontal and lateral views of the chest are obtained. FINDINGS: Bibasilar linear opacities are present on the frontal view. The cardiac silhouette size i s enlarged as seen on the prior. No sizable pleural effusion or pneumothorax. The osseous structure s are intact. Mild multilevel degenerative changes of the spine. IMPRESSION: Bibasilar linear opacities are favored to represent atelectasis, seen on the frontal vie w only. Developing pneumonia is possible in the proper clinical setting.
== END | disposition home or self-care (01) ==
LOC: RADXRMAIN 10:41
PROVIDERS: ATTEND Family Medicine
DX: J18.9 Pneumonia, unspecified organism (principal)
CPT/HCPCS: 71046

== ENCOUNTER 2019-05-13 15:24 | Inpatient (IN) | payer MEDICARE ==
[2019-05-13] MEDS ORDERED: LEVOFLOXACIN 750MG-D5W PMX 750 MG in DEXTROSE/WATER 1 150ML.BAG IVPB STA (16:54)
--- NOTE | 2019-05-13 16:58 | ED ---
General Adult HPI - General Chief complaint: Shortness of Breath Stated complaint: pneumonia Time Seen by Provider: 05/13/19 15:35 Source: patient, RN notes reviewed Mode of arrival: ambulatory Limitations: physical limitation - History of Present Illness Initial comments: This is an 84-year-old male who presents emergency Department after having failed outpatient treatment for pneumonia. Dr. Mosqueda called the ER and wanted the patient evaluated and admitted for outpatient failure of pneumonia. Patient states his been ongoing for 3 weeks he is short of breath coughing and coughing up sputum. Patient denies any chest pain or palpitations. Patient denies any fever chills. Patient denies any abdominal pain patient denies nausea vomiting diarrhea. Patient denies lightheadedness or dizziness patient denies any numbness or weakness. - Related Data Home Medications Medication Instructions Recorded Confirmed Carvedilol [Coreg] 25 mg PO BID@0500,1700 07/12/14 05/13/19 Tamsulosin HCl [Flomax] 0.4 mg PO BID@0700,2100 07/12/14 05/13/19 Multivitamins, Thera [Multivitamin 1 tab PO DAILY@0700 07/05/17 05/13/19 (formulary)] Warfarin [Coumadin] 5 mg PO MO@1700 07/20/17 05/13/19 Warfarin [Coumadin] 7.5 mg PO SUTUWETHFRSA@1700 12/09/17 05/13/19 Diltiazem Oral [Cardizem*] 30 mg PO TID@0700,1400,2100 01/15/18 05/13/19 Propafenone Sr [Rythmol Sr] 225 mg PO BID@0700,1900 05/13/19 05/13/19 predniSONE See Taper PO DAILY 05/13/19 05/13/19 Allergies Allergy/AdvReac Type Severity Reaction Status Date / Time isosorbide mononitrate Allergy Unknown Verified 05/13/19 17:09 [From Imdur] Penicillins Allergy Rash/Hives Verified 05/13/19 17:09 albuterol [From Ventolin HFA] AdvReac Rapid Verified 05/13/19 17:09 Heart Rate amiodarone HCl AdvReac LUNGS/EYE Verified 05/13/19 17:09 [From Cordarone] PROBLEMS codeine AdvReac Nausea & Verified 05/13/19 17:09 Vomiting enalapril maleate AdvReac Cough Verified 05/13/19 17:09 [From Vasotec] enalaprilat dihydrate AdvReac Cough Verified 05/13/19 17:09 [From Vasotec] hydromorphone HCl AdvReac Nausea & Verified 05/13/19 17:09 [From Dilaudid] Vomiting loratadine [From Claritin] AdvReac Rapid Verified 05/13/19 17:09 Heart Rate morphine AdvReac Nausea & Verified 05/13/19 17:09 Vomiting procainamide HCl AdvReac "FLUID ON Verified 05/13/19 17:09 [From Pronestyl] HEART" tetanus toxoid, adsorbed AdvReac "JOINT Verified 05/13/19 17:09 STIFFNESS" Review of Systems ROS Statement: Those systems with pertinent positive or pertinent negative responses have been documented in the HPI. ROS Other: All systems not noted in ROS Statement are negative. Past Medical History Past Medical History: Atrial Fibrillation, Atrial Flutter, GERD/Reflux, Hypertension, Osteoarthritis (OA), Pneumonia, Renal Disease, Skin Disorder Additional Past Medical History / Comment(s): Pt recently had an influenza and was on an antibiotic, recently told he has a "spot" on his R lung-not worked up yet, Afib with RVR in past, no CPAP necessary, kidney stones, psoriasis, reactive airway, urinary frequency. History of Any Multi-Drug Resistant Organisms: None Reported Past Surgical History: Cardiac Ablation, Joint Replacement, Orthopedic Surgery Additional Past Surgical History / Comment(s): cardiac ablation, kidney surgery 1954 Past Anesthesia/Blood Transfusion Reactions: No Reported Reaction Past Psychological History: No Psychological Hx Reported Smoking Status: Former smoker Past Alcohol Use History: None Reported Past Drug Use History: None Reported - Past Family History Mother Family Medical History: Cancer Additional Family Medical History / Comment(s): Mother of lung cancer Father Family Medical History: Cancer Additional Family Medical History / Comment(s): Father of prostrate cancer. Brother(s) Family Medical History: Cancer Additional Family Medical History / Comment(s): Patient has one brother with history of atrial fibrillation and kidney cancer, second brother with valvular heart disease, third brother with Parkinson's. Daughter(s) Additional Family Medical History / Comment(s): Patient has 3 children and one daughter from complications from obesity. Other 2 children have no major medical problems. General Exam - General Exam Comments Initial Comments: GENERAL: Patient is well-developed and well-nourished. Patient is nontoxic and well- hydrated and is in mild distress. ENT: Neck is soft and supple. No significant lymphadenopathy is noted. Oropharynx is clear. Moist mucous membranes. Neck has full range of motion without eliciting any pain. EYES: The sclera were anicteric and conjunctiva were pink and moist. Extraocular movements were intact and pupils were equal round and reactive to light. Eyelids were unremarkable. PULMONARY: Unlabored respirations. Good breath sounds bilaterally. No audible rales rhonchi or wheezing was noted. CARDIOVASCULAR: There is a regular rate and rhythm without any murmurs gallops or rubs. ABDOMEN: Soft and nontender with normal bowel sounds. No palpable organomegaly was noted. There is no palpable pulsatile mass. SKIN: Skin is clear with no lesions or rashes and otherwise unremarkable. NEUROLOGIC: Patient is alert and oriented x3. Cranial nerves II through XII are grossly intact. Motor and sensory are also intact. Normal speech, volume and content. Symmetrical smile. MUSCULOSKELETAL: Normal extremities with adequate strength and full range of motion. No lower extremity swelling or edema. No calf tenderness. LYMPHATICS: No significant lymphadenopathy is noted PSYCHIATRIC: Normal psychiatric evaluation. Limitations: physical limitation Course Vital Signs 05/13/19 05/13/19 15:34 17:30 Temperature 98.3 F 97.9 F Pulse Rate 66 72 Respiratory 20 18 Rate Blood Pressure 157/74 115/72 O2 Sat by Pulse 96 98 Oximetry Medical Decision Making - Medical Decision Making EKG shows sinus rhythm at 64 bpm [place] interval is 120 QRS is 114 QT interval 444 Q TC is 458. Patient's EKG shows no ST segment elevation or depression or T wave abnormalities are noted. Chest x-ray showed no acute abnormality. Patient still is coughing quite a bit and feeling short of breath. Patient did not feel comfortable going home. I spoke with Dr. Ahumada he agreed to admit the patient admitted the patient wrote admitting orders. I told patient I would put him on albuterol he stated he cannot: Albuterol because it makes his atrial fibrillation worse. I started the patient on antibiotics as well as Decadron and Tessalon Perles. I consulted Ricardo. - Lab Data Result diagrams: 05/13/19 17:20 05/13/19 17:20 Lab Results 05/13/19 05/13/19 05/13/19 Range/Units 17:20 17:20 17:20 WBC 8.8 (3.8-10.6) k/uL RBC 4.28 L (4.30-5.90) m/uL Hgb 13.4 (13.0-17.5) gm/dL Hct 40.8 (39.0-53.0) % MCV 95.3 (80.0-100.0) fL MCH 31.4 (25.0-35.0) pg MCHC 32.9 (31.0-37.0) g/dL RDW 13.1 (11.5-15.5) % Plt Count 163 (150-450) k/uL Neutrophils % 81 % Lymphocytes % 14 % Monocytes % 4 % Eosinophils % 0 % Basophils % 0 % Neutrophils # 7.1 (1.3-7.7) k/uL Lymphocytes # 1.2 (1.0-4.8) k/uL Monocytes # 0.4 (0-1.0) k/uL Eosinophils # 0.0 (0-0.7) k/uL Basophils # 0.0 (0-0.2) k/uL PT (9.0-12.0) sec INR (<1.2) APTT (22.0-30.0) sec Sodium 142 (137-145) mmol/L Potassium 4.4 (3.5-5.1) mmol/L Chloride 108 H (98-107) mmol/L Carbon Dioxide 28 (22-30) mmol/L Anion Gap 6 mmol/L BUN 25 H (9-20) mg/dL Creatinine 0.70 (0.66-1.25) mg/dL Est GFR (CKD-EPI)AfAm >90 (>60 ml/min/1.73 sqM) Est GFR (CKD-EPI)NonAf 88 (>60 ml/min/1.73 sqM) Glucose 106 H (74-99) mg/dL Plasma Lactic Acid Archie 1.3 (0.7-2.0) mmol/L Calcium 9.1 (8.4-10.2) mg/dL Magnesium 2.1 (1.6-2.3) mg/dL Total Bilirubin 0.2 (0.2-1.3) mg/dL AST 48 (17-59) U/L ALT 117 H (21-72) U/L Alkaline Phosphatase 55 (38-126) U/L Troponin I (0.000-0.034) ng/mL Total Protein 6.4 (6.3-8.2) g/dL Albumin 3.8 (3.5-5.0) g/dL 05/13/19 05/13/19 Range/Units 17:20 17:20 WBC (3.8-10.6) k/uL RBC (4.30-5.90) m/uL Hgb (13.0-17.5) gm/dL Hct (39.0-53.0) % MCV (80.0-100.0) fL MCH (25.0-35.0) pg MCHC (31.0-37.0) g/dL RDW (11.5-15.5) % Plt Count (150-450) k/uL Neutrophils % % Lymphocytes % % Monocytes % % Eosinophils % % Basophils % % Neutrophils # (1.3-7.7) k/uL Lymphocytes # (1.0-4.8) k/uL Monocytes # (0-1.0) k/uL Eosinophils # (0-0.7) k/uL Basophils # (0-0.2) k/uL PT 28.4 H (9.0-12.0) sec INR 2.9 H (<1.2) APTT 35.1 H (22.0-30.0) sec Sodium (137-145) mmol/L Potassium (3.5-5.1) mmol/L Chloride (98-107) mmol/L Carbon Dioxide (22-30) mmol/L Anion Gap mmol/L BUN (9-20) mg/dL Creatinine (0.66-1.25) mg/dL Est GFR (CKD-EPI)AfAm (>60 ml/min/1.73 sqM) Est GFR (CKD-EPI)NonAf (>60 ml/min/1.73 sqM) Glucose (74-99) mg/dL Plasma Lactic Acid Archie (0.7-2.0) mmol/L Calcium (8.4-10.2) mg/dL Magnesium (1.6-2.3) mg/dL Total Bilirubin (0.2-1.3) mg/dL AST (17-59) U/L ALT (21-72) U/L Alkaline Phosphatase (38-126) U/L Troponin I <0.012 (0.000-0.034) ng/mL Total Protein (6.3-8.2) g/dL Albumin (3.5-5.0) g/dL Disposition Clinical Impression: Cough, persistent, Pneumonia Disposition: ADMITTED IP TO THIS HOSP Referrals: Nehemiah Mosqueda DO [Primary Care Provider] - 1-2 days
[2019-05-13 17:39] LABS: Basophils % (A) 0 %; Eosinophils % (A) 0 %; HCT 40.8 % (39.0-53.0); HGB 13.4 gm/dL (13.0-17.5); Lymphocytes # (A) 1.2 k/uL (1.0-4.8); Lymphocytes % (A) 14 %; MCH 31.4 pg (25.0-35.0); MCHC 32.9 g/dL (31.0-37.0); MCV 95.3 fL (80.0-100.0); Mean Platelet Volume 7.2; Monocytes # (A) 0.4 k/uL (0-1.0); Monocytes % (A) 4 %; Neutrophils # (A) 7.1 k/uL (1.3-7.7); Neutrophils % (A) 81 %; Platelet Count 163 k/uL (150-450); RBC 4.28 m/uL (4.30-5.90); RDW 13.1 % (11.5-15.5); WBC 8.8 k/uL (3.8-10.6)
[2019-05-13 17:44] LABS: ALT 117 U/L (21-72); AST 48 U/L (17-59); African American GFR (CKD) >90 (>60 ml/min/1.73 sqM); Albumin 3.8 g/dL (3.5-5.0); Alkaline Phosphatase 55 U/L (38-126); Anion Gap 6 mmol/L; Blood Urea Nitrogen 25 mg/dL (9-20); Calcium 9.1 mg/dL (8.4-10.2); Carbon Dioxide 28 mmol/L (22-30); Chloride 108 mmol/L (98-107); Glucose 106 mg/dL (74-99); Non-African American GFR(CKD) 88 (>60 ml/min/1.73 sqM); Potassium 4.4 mmol/L (3.5-5.1); Sodium 142 mmol/L (137-145); Total Bilirubin 0.2 mg/dL (0.2-1.3); Total Protein 6.4 g/dL (6.3-8.2)
[2019-05-13 17:45] LABS: Magnesium 2.1 mg/dL (1.6-2.3)
[2019-05-13 17:47] LABS: INR 2.9 (<1.2); Partial Thromboplastin Time 35.1 sec (22.0-30.0); Prothrombin Time 28.4 sec (9.0-12.0)
--- NOTE | 2019-05-13 18:30 | XR ---
EXAMINATION TYPE: XR chest 2V DATE OF EXAM: 05/13/2019 COMPARISON: 05/08/2019 INDICATION: Difficulty breathing TECHNIQUE: Frontal and lateral views of the chest are obtained. FINDINGS: The heart size is normal. The pulmonary vasculature is normal. The lungs are clear. There is some hyperinflation flattening the diaphragms. Consider COPD. IMPRESSION: 1. No acute pulmonary process. 2. COPD
[2019-05-13] MEDS ORDERED: PNEUMONIA PROTOCOL UTILIZED 1 EACH MISC PO PRN (19:28)
[2019-05-13] MEDS ORDERED: AZITHROMYCIN 500 MG in SODIUM CHLORIDE 0.9% 250 ML IVPB STA (19:28)
[2019-05-13] MEDS ORDERED: BENZONATATE 100 MG CAP PO PRN (19:29)
[2019-05-13] MEDS: DEXAMETHASONE SOD PHOSPHATE 4 MG/ML 1 ML VIAL IV SCH (22:01)
[2019-05-13] MEDS ORDERED: TAMSULOSIN 0.4 MG CAP.ER.24H PO STA (22:24)
[2019-05-13] MEDS ORDERED: PROPAFENONE 150 MG TAB PO STA (22:30)
[2019-05-13] MEDS ORDERED: DILTIAZEM ORAL 30 MG TAB PO STA (22:31)
[2019-05-13] MEDS ORDERED: CARVEDILOL 12.5 MG TAB PO STA (22:34)
[2019-05-14] MEDS: CARVEDILOL 12.5 MG TAB PO SCH ×2 (04:45→16:30)
[2019-05-14] MEDS: FAMOTIDINE 20 MG TAB PO SCH (07:22)
[2019-05-14] MEDS: DEXAMETHASONE SOD PHOSPHATE 4 MG/ML 1 ML VIAL IV SCH (07:22)
[2019-05-14] MEDS: MULTIVITAMINS, THERA 1 EACH TAB PO SCH (07:22)
[2019-05-14] MEDS: TAMSULOSIN 0.4 MG CAP.ER.24H PO SCH ×2 (07:22→21:01)
[2019-05-14] MEDS: DILTIAZEM ORAL 30 MG TAB PO SCH ×3 (07:22→21:01)
[2019-05-14] MEDS: PROPAFENONE 150 MG TAB PO SCH ×3 (07:23→21:01)
--- NOTE | 2019-05-14 07:23 | XR ---
EXAMINATION TYPE: XR chest 2V DATE OF EXAM: 05/14/2019 COMPARISON: 05/13/2019 HISTORY: Pneumonia TECHNIQUE: Frontal and lateral views of the chest are obtained. FINDINGS: Right basilar opacity and linear left basilar opacity are seen. Increasing confluence of t he right basilar opacity. Cardiomediastinal silhouette is mildly enlarged. Pulmonary hyperinflation w ith flattening of the diaphragms indicative of underlying COPD. Mild degenerative changes of the spin e. Osseous demineralization throughout. IMPRESSION: Increasing right infrahilar opacity suspicious for unifocal pneumonia. Left basilar atel ectasis is stable.
[2019-05-14 07:31] LABS: Basophils % (A) 0 %; Eosinophils % (A) 0 %; HCT 42.5 % (39.0-53.0); HGB 13.7 gm/dL (13.0-17.5); Lymphocytes % (A) 11 %; MCH 30.7 pg (25.0-35.0); MCHC 32.3 g/dL (31.0-37.0); MCV 95.1 fL (80.0-100.0); Mean Platelet Volume 7.2; Monocytes # (A) 0.3 k/uL (0-1.0); Monocytes % (A) 3 %; Neutrophils % (A) 85 %; Platelet Count 183 k/uL (150-450); RBC 4.46 m/uL (4.30-5.90); RDW 12.9 % (11.5-15.5); WBC 9.3 k/uL (3.8-10.6)
[2019-05-14 07:39] LABS: INR 2.5 (<1.2); Prothrombin Time 24.3 sec (9.0-12.0)
[2019-05-14 07:47] LABS: ALT 104 U/L (21-72); AST 39 U/L (17-59); African American GFR (CKD) >90 (>60 ml/min/1.73 sqM); Albumin 3.7 g/dL (3.5-5.0); Alkaline Phosphatase 55 U/L (38-126); Anion Gap 5 mmol/L; Blood Urea Nitrogen 21 mg/dL (9-20); Calcium 9.2 mg/dL (8.4-10.2); Carbon Dioxide 30 mmol/L (22-30); Chloride 107 mmol/L (98-107); Glucose 111 mg/dL (74-99); Non-African American GFR(CKD) 87 (>60 ml/min/1.73 sqM); Potassium 4.2 mmol/L (3.5-5.1); Sodium 142 mmol/L (137-145); Total Bilirubin 0.4 mg/dL (0.2-1.3); Total Protein 6.6 g/dL (6.3-8.2)
[2019-05-14] MEDS ORDERED: INFLUENZA VACCINE (6 MOS+) 60 MCG/0.5 ML SYRINGE IM ONE (11:13)
[2019-05-14] MEDS: AZITHROMYCIN 500 MG TAB PO SCH (11:48)
[2019-05-14] MEDS ORDERED: IPRATROPIUM-ALBUTEROL 3 ML NEB INHALATION PRN (12:02)
[2019-05-14] MEDS: IPRATROPIUM-ALBUTEROL 3 ML NEB INHALATION SCH ×2 (12:52→20:45)
[2019-05-14] MEDS: guaiFENesin SYRUP 100MG/5ML 200 MG/10 ML CUP PO SCH ×3 (13:16→23:39)
--- NOTE | 2019-05-14 14:55 | P.HPIM ---
History of Present Illness H&P Date: 05/14/19 Chief Complaint: Persistent cough On this is an 84-year-old male patient of Dr. Mosqueda with past medical history of paroxysmal atrial fibrillation status post cardiac ablation in 2007 as well as cardioversions a couple times since then, hypertension, osteoarthritis, obstructive sleep apnea but not currently on a CPAP, psoriasis, hard of hearing. Patient states that he has been under treatment with Dr. Mosqueda for pneumonia for the past 3 weeks. He completed a course of ciprofloxacin and was not better and then was given a prescription for predniso ne. He states he completed his antibiotic and subsequently completed the steroids yesterday. He states he has a continued cough with sputum production and makes it difficult to lay down. He has since then his time sitting in a chair due to the chronic cough. Patient came into [facility] emergency center for evaluation. CBC within normal limits, BUN 25, creatinine 0.7, blood sugar 106 lactic acid 1.3, ALT 117, INR 2.9, troponin 0.012. EKG sinus rhythm. Initial chest x-ray showed no acute pulmonary process. COPD. A repeat chest x-ray this morning reveals increasing right infrahilar opacities suspicious for unifocal pneumonia. Left basilar atelectasis is stable. Consult with Dr. Silva. Review of Systems Constitutional: Denies anorexia, Denies chills, Denies fatigue, Denies fever, Denies lethargy, Denies malaise, Denies poor appetite, Denies sweats, Denies weight loss Eyes: denies blurred vision, denies pain Ears, nose, mouth and throat: Denies headache, Denies nasal congestion, Denies nasal discharge, Denies sore throat, Denies vertigo Cardiovascular: Denies chest pain, Denies decreased exercise tolerance, Denies dyspnea on exertion, Denies edema, Denies leg edema, Denies lightheadedness, Denies shortness of breath, Denies syncope Respiratory: Reports cough with sputum, Reports sleep apnea, Denies dyspnea, De nies excessive sputum, Denies hemoptysis, Denies home oxygen Gastrointestinal: Denies abdominal pain, Denies diarrhea, Denies loss of appetite, Denies nausea, Denies vomiting Genitourinary: Denies dysuria, Denies urinary retention Musculoskeletal: Denies frequent falls, Denies gait dysfunction, Denies muscle weakness, Denies myalgias Integumentary: Denies pruritus, Denies rash, Denies wounds Neurological: Denies change in mentation, Denies change in speech, Denies double vision, Denies numbness, Denies vertigo, Denies weakness Psychiatric: Denies anxiety, Denies depression Endocrine: Denies fatigue, Denies weight change Past Medical History Past Medical History: Atrial Fibrillation, Atrial Flutter, GERD/Reflux, Hypertension, Osteoarthritis (OA), Pneumonia, Renal Disease, Skin Disorder Additional Past Medical History / Comment(s): Pt recently had an influenza and was on an antibiotic, recently told he has a "spot" on his R lung-not worked up yet, Afib with RVR in past, no CPAP necessary, kidney stones, psoriasis, reactive airway, urinary frequency. History of Any Multi-Drug Resistant Organisms: None Reported Past Surgical History: Cardiac Ablation, Joint Replacement, Orthopedic Surgery Additional Past Surgical History / Comment(s): cardiac ablation X2, kidney surgery 1954, iron knee, iron hip, Cardioversionx4 chip right shoulder, loss finger on left hand Past Anesthesia/Blood Transfusion Reactions: No Reported Reaction Past Psychological History: No Psychological Hx Reported Additional Psychological History / Comment(s): Pt resides with his spouse of 58 yrs. He is independent. Smoking Status: Former smoker Past Alcohol Use History: None Reported Additional Past Alcohol Use History / Comment(s): Patient smoked a pipe for 7 years and quit 40 years ago. No alcohol use, no marijuana or illicit drug use. Past Drug Use History: None Reported - Past Family History Mother Family Medical History: Cancer Additional Family Medical History / Comment(s): Mother at age 82 of lung cancer. Father Family Medical History: Cancer Additional Family Medical History / Comment(s): Father at age 80 of prostrate cancer. Brother(s) Family Medical History: Cancer Additional Family Medical History / Comment(s): Patient has a total of 6 brothers. One brother with history of atrial fibrillation and kidney cancer, second brother with valvular heart disease, third brother with Parkinson's. Daughter(s) Additional Family Medical History / Comment(s): Patient has 3 children and one daughter from complications from obesity. Other 2 children have no major medical problems. Medications and Allergies Home Medications Medication Instructions Recorded Confirmed Type Carvedilol [Coreg] 25 mg PO BID@0500,1700 07/12/14 05/13/19 History Tamsulosin HCl [Flomax] 0.4 mg PO BID@0700,2100 07/12/14 05/13/19 History Multivitamins, Thera [Multivitamin 1 tab PO DAILY@0700 07/05/17 05/13/19 History (formulary)] Warfarin [Coumadin] 5 mg PO MO@1700 07/20/17 05/13/19 History Warfarin [Coumadin] 7.5 mg PO SUTUWETHFRSA@1700 12/09/17 05/13/19 History Diltiazem Oral [Cardizem*] 30 mg PO TID@0700,1400,2100 01/15/18 05/13/19 History Propafenone Sr [Rythmol Sr] 225 mg PO BID@0700,1900 05/13/19 05/13/19 History Azithromycin [Zithromax] 500 mg PO DAILY #5 tab 05/14/19 Rx Benzonatate [Tessalon Perles] 200 mg PO TID PRN #21 cap 05/14/19 Rx Dexamethasone 4 mg PO AC-BID #14 tablet 05/14/19 Rx Famotidine [Pepcid] 20 mg PO DAILY tab 05/14/19 Rx Levalbuterol Hfa Inhaler [Xopenex 2 puff INHALATION Q6HR PRN #1 05/14/19 Rx Hfa Inhaler] inhaler Allergies Allergy/AdvReac Type Severity Reaction Status Date / Time isosorbide mononitrate Allergy Unknown Verified 05/13/19 17:09 [From Imdur] Penicillins Allergy Rash/Hives Verified 05/13/19 17:09 albuterol [From Ventolin HFA] AdvReac Rapid Verified 05/13/19 17:09 Heart Rate amiodarone HCl AdvReac LUNGS/EYE Verified 05/13/19 17:09 [From Cordarone] PROBLEMS codeine AdvReac Nausea & Verified 05/13/19 17:09 Vomiting enalapril maleate AdvReac Cough Verified 05/13/19 17:09 [From Vasotec] enalaprilat dihydrate AdvReac Cough Verified 05/13/19 17:09 [From Vasotec] hydromorphone HCl AdvReac Nausea & Verified 05/13/19 17:09 [From Dilaudid] Vomiting loratadine [From Claritin] AdvReac Rapid Verified 05/13/19 17:09 Heart Rate morphine AdvReac Nausea & Verified 05/13/19 17:09 Vomiting procainamide HCl AdvReac "FLUID ON Verified 05/13/19 17:09 [From Pronestyl] HEART" tetanus toxoid, adsorbed AdvReac "JOINT Verified 05/13/19 17:09 STIFFNESS" Physical Exam Vitals: Vital Signs Temp Pulse Pulse Resp BP BP Pulse Ox 05/14/19 08:37 98.4 F 59 L 177/71 96 05/14/19 06:53 97.8 F 58 L 16 197/67 96 05/14/19 04:46 98.3 F 66 18 137/66 05/14/19 04:00 16 05/14/19 01:35 98.4 F 72 17 160/62 95 05/14/19 00:05 18 05/13/19 21:23 98.2 F 76 18 191/75 96 05/13/19 20:30 62 20 175/71 05/13/19 19:30 61 20 177/71 05/13/19 17:30 97.9 F 72 18 115/72 98 05/13/19 15:34 98.3 F 66 20 157/74 96 Intake and Output 05/13/19 05/14/19 05/14/19 22:59 06:59 14:59 Output Total 600 Balance -600 Output: Urine 600 Other: Voiding Method Toilet Toilet Urinal Urinal # Voids 1 Weight 113.398 kg Gen: This is an 84-year-old male. He is sitting up in a chair and appears to be comfortable and in no acute distress. No respiratory distress is noted. HEENT: Head is atraumatic, normocephalic. Pupils equal, round. Sclerae is anicteric. NECK: Supple. No JVD. No lymphadenopathy. No thyromegaly. LUNGS: Clear to auscultation. No wheezes or rhonchi. No intercostal retractions. HEART: Irregularly irregular rate and rhythm. No murmur. ABDOMEN: Soft. Bowel sounds are present. No masses. No tenderness. EXTREMITIES: No pedal edema. No calf tenderness. NEUROLOGICAL: Patient is awake, alert and oriented x3. Cranial nerves 2 through 12 are grossly intact. Results CBC & Chem 7: 05/14/19 06:52 05/14/19 06:52 Labs: Abnormal Lab Results - Last 24 Hours (Table) 05/13/19 05/13/19 05/13/19 Range/Units 17:20 17:20 17:20 RBC 4.28 L (4.30-5.90) m/uL Neutrophils # (1.3-7.7) k/uL PT 28.4 H (9.0-12.0) sec INR 2.9 H (<1.2) APTT 35.1 H (22.0-30.0) sec Chloride 108 H (98-107) mmol/L BUN 25 H (9-20) mg/dL Glucose 106 H (74-99) mg/dL ALT 117 H (21-72) U/L 05/14/19 05/14/19 05/14/19 Range/Units 06:52 06:52 06:52 RBC (4.30-5.90) m/uL Neutrophils # 8.0 H (1.3-7.7) k/uL PT 24.3 H (9.0-12.0) sec INR 2.5 H (<1.2) APTT (22.0-30.0) sec Chloride (98-107) mmol/L BUN 21 H (9-20) mg/dL Glucose 111 H (74-99) mg/dL ALT 104 H (21-72) U/L Microbiology - Last 24 Hours (Table) 05/14/19 10:42 Sputum Culture - Preliminary Sputum Thrombosis Risk Factor Assmnt - Choose All That Apply Any of the Below Risk Factors Present?: Yes Each Risk Factor Represents 3 Points: Age 75 years or older Thrombosis Risk Factor Assessment Total Risk Factor Score: 3 Thrombosis Risk Factor Assessment Level: Moderate Risk Assessment and Plan Plan: 1. Persistent cough with possible developing pneumonia. Consult with Dr. Ricardo shay. Continue DuoNeb treatments 3 times daily and every 2 hours as needed, azithromycin 500 mg daily, Tessalon Perles 3 times daily, Rocephin daily, Solu-Medrol 40 mg IV every 8 hours, Robitussin. 2. Paroxysmal atrial fibrillation. Continue Rythmol 150 mg 3 times daily, Coreg 25 mg twice daily, Coumadin on home dosing 3. Obstructive sleep apnea. 4. Hypertension. Continue Coreg 5. Benign prostatic hypertrophy. 6. GI prophylaxis. Pepcid 7. DVT prophylaxis. Coumadin. Patient placed as an observation status. Discharge plan: Home Impression and plan of care have been directed as dictated by the signing physician. Urmila Carey nurse practitioner acting as scribe for signing physician.
--- NOTE | 2019-05-14 15:21 | P.CNPUL ---
History of Present Illness Consult date: 05/14/19 History of present illness: 84-year-old male patient coming in today because of increased cough and congestion and increased sputum production. Denies having any significant shortness of breath. Nevertheless, the patient claims that he has not been doing a whole lot of activity and as such this cannot be accurately assessed. He is known to have paroxysmal atrial fibrillation currently his rhythm is sinus. His undergone previous cardiac ablation on multiple occasions. His other comorbidities include obstructive sleep apnea which is minimal and for that the patient is not receiving any CPAP treatment. The patient's hypertension and osteoarthritis and previous history of psoriasis. He is also impaired hearing. For the past 10 days, the patient has been having the above- mentioned symptoms and the patient was given a course of antibiotics and a short course of prednisone taper for his primary care physician without any much improvement. His chest x-ray showing right basilar pulmonary infiltrate suggestive of pneumonia. This is mainly present on today's chest x-ray and was actively absent on yesterday's chest x-ray. White cell count is not elevated and the results of the blood work and electrodes are all within normal limits. Currently on accommodation Rocephin and Zithromax. He is having some increased bronchospasm wheezing also. Review of Systems Constitutional: Denies anorexia, Denies chills, Denies fatigue, Denies fever, Denies lethargy, Denies malaise, Denies poor appetite, Denies sweats, Denies weight loss Eyes: denies blurred vision, denies pain Ears, nose, mouth and throat: Denies headache, Denies nasal congestion, Denies nasal discharge, Denies sore throat, Denies vertigo Cardiovascular: Denies chest pain, Denies decreased exercise tolerance, Denies dyspnea on exertion, Denies edema, Denies leg edema, Denies lightheadedness, Denies shortness of breath, Denies syncope Respiratory: Reports cough with sputum, Reports sleep apnea, Denies dyspnea, Denies excessive sputum, Denies hemoptysis, Denies home oxygen Gastrointestinal: Denies abdominal pain, Denies diarrhea, Denies loss of appetite, Denies nausea, Denies vomiting Genitourinary: Denies dysuria, Denies urinary retention Musculoskeletal: Denies frequent falls, Denies gait dysfunction, Denies muscle weakness, Denies myalgias Integumentary: Denies pruritus, Denies rash, Denies wounds Neurological: Denies change in mentation, Denies change in speech, Denies double vision, Denies numbness, Denies vertigo, Denies weakness Psychiatric: Denies anxiety, Denies depression Endocrine: Denies fatigue, Denies weight change Past Medical History Past Medical History: Atrial Fibrillation, Atrial Flutter, GERD/Reflux, Hypertension, Osteoarthritis (OA), Pneumonia, Skin Disorder Additional Past Medical History / Comment(s): Paroxysmal atrial fibrillation post-ablation current rhythm is sinus, mild KATHLEEN, history of nephrolithiasis, psoriasis, obesity with a BMI of 33 History of Any Multi-Drug Resistant Organisms: None Reported Past Surgical History: Cardiac Ablation, Joint Replacement, Orthopedic Surgery Additional Past Surgical History / Comment(s): cardiac ablation X2, kidney surgery 1955, iron knee, iron hip, Cardioversionx4 chip right shoulder, loss finger on left hand Past Anesthesia/Blood Transfusion Reactions: No Reported Reaction Past Psychological History: No Psychological Hx Reported Additional Psychological History / Comment(s): Pt resides with his spouse of 58 yrs. He is independent. Smoking Status: Former smoker Past Alcohol Use History: None Reported Additional Past Alcohol Use History / Comment(s): Patient smoked a pipe for 7 years and quit 40 years ago. No alcohol use, no marijuana or illicit drug use. Past Drug Use History: None Reported - Past Family History Mother Family Medical History: Cancer Additional Family Medical History / Comment(s): Mother at age 82 of lung cancer. Father Family Medical History: Cancer Additional Family Medical History / Comment(s): Father at age 80 of prostrate cancer. Brother(s) Family Medical History: Cancer Additional Family Medical History / Comment(s): Patient has a total of 6 brothers. One brother with history of atrial fibrillation and kidney cancer, second brother with valvular heart disease, third brother with Parkinson's. Daughter(s) Additional Family Medical History / Comment(s): Patient has 3 children and one daughter from complications from obesity. Other 2 children have no major medical problems. Medications and Allergies Home Medications Medication Instructions Recorded Confirmed Type Carvedilol [Coreg] 25 mg PO BID@0500,1700 07/12/14 05/13/19 History Tamsulosin HCl [Flomax] 0.4 mg PO BID@0700,2100 07/12/14 05/13/19 History Multivitamins, Thera [Multivitamin 1 tab PO DAILY@0700 07/05/17 05/13/19 History (formulary)] Warfarin [Coumadin] 5 mg PO MO@1700 07/20/17 05/13/19 History Warfarin [Coumadin] 7.5 mg PO SUTUWETHFRSA@1700 12/09/17 05/13/19 History Diltiazem Oral [Cardizem*] 30 mg PO TID@0700,1400,2100 01/15/18 05/13/19 History Propafenone Sr [Rythmol Sr] 225 mg PO BID@0700,1900 05/13/19 05/13/19 History Azithromycin [Zithromax] 500 mg PO DAILY #5 tab 05/14/19 Rx Benzonatate [Tessalon Perles] 200 mg PO TID PRN #21 cap 05/14/19 Rx Dexamethasone 4 mg PO AC-BID #14 tablet 05/14/19 Rx Famotidine [Pepcid] 20 mg PO DAILY tab 05/14/19 Rx Levalbuterol Hfa Inhaler [Xopenex 2 puff INHALATION Q6HR PRN #1 05/14/19 Rx Hfa Inhaler] inhaler Allergies Allergy/AdvReac Type Severity Reaction Status Date / Time isosorbide mononitrate Allergy Unknown Verified 05/13/19 17:09 [From Imdur] Penicillins Allergy Rash/Hives Verified 05/13/19 17:09 albuterol [From Ventolin HFA] AdvReac Rapid Verified 05/13/19 17:09 Heart Rate amiodarone HCl AdvReac LUNGS/EYE Verified 05/13/19 17:09 [From Cordarone] PROBLEMS codeine AdvReac Nausea & Verified 05/13/19 17:09 Vomiting enalapril maleate AdvReac Cough Verified 05/13/19 17:09 [From Vasotec] enalaprilat dihydrate AdvReac Cough Verified 05/13/19 17:09 [From Vasotec] hydromorphone HCl AdvReac Nausea & Verified 05/13/19 17:09 [From Dilaudid] Vomiting loratadine [From Claritin] AdvReac Rapid Verified 05/13/19 17:09 Heart Rate morphine AdvReac Nausea & Verified 05/13/19 17:09 Vomiting procainamide HCl AdvReac "FLUID ON Verified 05/13/19 17:09 [From Pronestyl] HEART" tetanus toxoid, adsorbed AdvReac "JOINT Verified 05/13/19 17:09 STIFFNESS" Physical Exam Vitals: Vital Signs Temp Pulse Pulse Resp BP BP Pulse Ox 05/14/19 14:32 98.4 F 60 18 161/72 96 05/14/19 08:37 98.4 F 59 L 177/71 96 05/14/19 06:53 97.8 F 58 L 16 197/67 96 05/14/19 04:46 98.3 F 66 18 137/66 05/14/19 04:00 16 05/14/19 01:35 98.4 F 72 17 160/62 95 05/14/19 00:05 18 05/13/19 21:23 98.2 F 76 18 191/75 96 05/13/19 20:30 62 20 175/71 05/13/19 19:30 61 20 177/71 05/13/19 17:30 97.9 F 72 18 115/72 98 05/13/19 15:34 98.3 F 66 20 157/74 96 Intake and Output 05/14/19 05/14/19 05/14/19 06:59 14:59 22:59 Intake Total 1090 Balance 1090 Intake: Intake, IV Titration 50 Amount cefTRIAXone 1 gm In 50 Sodium Chloride 0.9% 50 ml @ 100 mls/hr IVPB Q24H [facility] Rx#:[id number] Oral 1040 Other: Voiding Method Toilet Toilet Urinal Urinal # Voids 1 Gen. appearance, comfortable likely distress Head exam was generally normal. There was no scleral icterus or corneal arcus. Mucous membranes were moist. Neck was supple and without jugular venous distension, thyromegaly, or carotid bruits. Carotids were easily palpable bilaterally. There was no adenopathy. The patient has a Mallampati class IV. Lungs sounds are diminished and the patient has scattered rhonchi and scattered expiratory wheezes heard throughout the lung del angel bilaterally. Cardiac exam revealed the PMI to be normally situated and sized. The rhythm was regular and no extrasystoles were noted during several minutes of auscultation. The first and second heart sounds were normal and physiologic splitting of the second heart sound was noted. There were no murmurs, rubs, clicks, or gallops. Abdominal exam revealed normal bowel sounds. The abdomen was soft, non-tender, and without masses, organomegaly, or appreciable enlargement of the abdominal aorta. Examination of the extremities revealed easily palpable radial, femoral and pedal pulses. There was no cyanosis, clubbing or edema. Examination of the skin revealed no evidence of significant rashes, suspicious appearing nevi or other concerning lesions. Neurologically the patient is awake and alert and there is no focal neurological deficits. Results - Laboratory Findings CBC and BMP: 05/14/19 06:52 05/14/19 06:52 PT/INR, D-dimer PT 24.3 sec (9.0-12.0) H 05/14/19 06:52 INR 2.5 (<1.2) H 05/14/19 06:52 Abnormal lab findings: Abnormal Labs 05/13/19 05/13/19 05/13/19 17:20 17:20 17:20 RBC 4.28 L Neutrophils # PT 28.4 H INR 2.9 H APTT 35.1 H Chloride 108 H BUN 25 H Glucose 106 H ALT 117 H 05/14/19 05/14/19 05/14/19 06:52 06:52 06:52 RBC Neutrophils # 8.0 H PT 24.3 H INR 2.5 H APTT Chloride BUN 21 H Glucose 111 H ALT 104 H - Diagnostic Findings Chest x-ray: image reviewed Assessment and Plan Plan: 1 acute tracheobronchitis with some reactive bronchospasm wheezing and some limited infiltration in the right lung base which could be potentially atelectasis. A clear-cut pneumonia is not identified. 2 increased dyspnea and cough and congestion secondary to above 3 history of proximal atrial fibrillation current rhythm sinus 4 hypertension 5 history of mild positional obstructive sleep apnea currently on no CPAP treatment. 6. Impaired Hearing 7 psoriasis 8 osteoarthritis Plan Perform an influenza screen. Obtain sputum Gram stain and culture. Cover the patient with accommodation Rocephin and Zithromax. Start the patient IV Solu- Medrol. Return about treatments 3 times a day [id number]. Monitor the progress. We'll keep the patient for another 24 hours here in the hospital for inpatient treatment with antibiotics and steroids and evaluate this patient in a.m. and decide on treatment accordingly. Continue anticoagulation with warfarin as the patient is currently in normal sinus rhythm and he has paroxysmal atrial fibrillation. Continue Coreg. Continue propafenone. We'll follow.
[2019-05-14] MEDS: methylPREDNISolone SOD SUCCI 40 MG/ML 1 ML VIAL IV SCH ×2 (16:30→23:39)
[2019-05-14] MEDS ORDERED: WARFARIN 5 MG TAB PO ONE (18:00)
[2019-05-15] MEDS: DILTIAZEM 125 MG in SODIUM CHLORIDE 0.9% 100 ML IV SCH (03:54)
[2019-05-15] MEDS: DILTIAZEM ORAL 30 MG TAB PO SCH (05:04)
[2019-05-15] MEDS: CARVEDILOL 12.5 MG TAB PO SCH ×2 (05:24→17:15)
[2019-05-15] MEDS: MULTIVITAMINS, THERA 1 EACH TAB PO SCH (05:24)
[2019-05-15] MEDS: TAMSULOSIN 0.4 MG CAP.ER.24H PO SCH ×2 (05:24→20:06)
[2019-05-15] MEDS: guaiFENesin SYRUP 100MG/5ML 200 MG/10 ML CUP PO SCH (05:24)
[2019-05-15 07:24] LABS: INR 1.8 (<1.2); Prothrombin Time 17.4 sec (9.0-12.0)
[2019-05-15] MEDS ORDERED: CARVEDILOL 12.5 MG TAB PO STA (08:27)
[2019-05-15] MEDS: IPRATROPIUM-ALBUTEROL 3 ML NEB INHALATION SCH ×2 (08:42→11:38)
--- NOTE | 2019-05-15 09:51 | PN ---
PROGRESS NOTE Colin is an 84-year-old gentleman with history of paroxysmal atrial fibrillation status post ablation, COPD, hypertension, who was admitted to hospital with pneumonia. Patient has had respiratory tract infection and had been tried in the outpatient setting without any improvement. Hence, he is admitted to the hospital. Yesterday, he developed atrial fibrillation with rapid ventricular rate for which Cardiology has been consulted. At the time of my evaluation, he is in atrial fibrillation with a heart rate of 138 beats per minute. He is on 5 mg of IV Cardizem. I am increasing it to 10 mg. I am also going to increase the dose of Coreg. He is currently on Rythmol, which I will continue. He is on Coumadin. INR is 1.8. He will continue with Coumadin. I think he missed a dose a few days ago. There is no history of coronary artery disease or congestive heart failure. Patient denies chest pain, difficulty in breathing or leg edema. PAST MEDICAL HISTORY: Significant for COPD, hypertension, persistent atrial fibrillation. CURRENT MEDICATIONS: Include Coumadin, Flomax, Rythmol, multivitamin, Pepcid, Robitussin, Coreg, DuoNeb. He has multiple drug allergies, they are charted and I reviewed them. FAMILY HISTORY: Negative for premature coronary artery disease. SOCIAL HISTORY: Denies current smoking, EtOH abuse or drug abuse. REVIEW OF SYSTEMS: HEENT: Unremarkable. CARDIAC: As described above. RESPIRATORY: Negative. GI: Negative. GENITOURINARY: Negative. ALLERGY/IMMUNOLOGY: Negative. SKIN: Negative. MUSCULOSKELETAL: Significant for arthritis. PSYCHOSOCIAL: Negative. ENDOCRINE: Negative. CONSTITUTIONAL: Negative. ONCOLOGICAL: Negative. Rest of the system review is not relevant. PHYSICAL EXAMINATION: On exam, patient is afebrile. Heart rate is 120 beats per minute. Blood pressure is 111/73, respiratory O2 sat is 94%. There is no jugular venous distention. Carotid upstroke is normal. There is no bruit. Chest exam reveals diminished air entry at the bases. I do not hear any crackles or rhonchi. Heart exam reveals first and second heart sounds, irregular rhythm and a systolic murmur at the left lower sternal border. Abdomen is soft. Exam of extremities did not reveal any edema. Peripheral pulses are palpable. LABS: Show an INR is 1.8, potassium is 4.2, creatinine is 0.7 hemoglobin is 13.7. EKG shows sinus rhythm. Rhythm strip showed that he is in atrial fibrillation. ASSESSMENT: 1. Persistent atrial fibrillation with poorly controlled ventricular rate. 2. Pneumonia. 3. Chronic obstructive pulmonary disease. PLAN: I will obtain a 2D echo on him to evaluate his LV function, increase the dose of Cardizem, increase the dose of Coreg and resume Coumadin. Will decide on further course of action based on how he evolves. JAJA / DARLYNN: [id number] /
[2019-05-15] MEDS: methylPREDNISolone SOD SUCCI 40 MG/ML 1 ML VIAL IV SCH (09:57)
[2019-05-15] MEDS: AZITHROMYCIN 500 MG TAB PO SCH (09:57)
[2019-05-15] MEDS: PROPAFENONE 150 MG TAB PO SCH ×3 (09:57→21:11)
[2019-05-15] MEDS: FAMOTIDINE 20 MG TAB PO SCH (09:57)
--- NOTE | 2019-05-15 11:58 | P.PN ---
Subjective Progress Note Date: 05/15/19 This is an 84-year-old male patient of Dr. Mosqueda with past medical history of paroxysmal atrial fibrillation status post cardiac ablation in 2007 as well as cardioversions a couple times since then, hypertension, osteoarthritis, obstructive sleep apnea but not currently on a CPAP, psoriasis, hard of hearing. Patient states that he has been under treatment with Dr. Mosqueda for pneumonia for the past 3 weeks. He completed a course of ciprofloxacin and was not better and then was given a prescription for prednisone. He states he completed his antibiotic and subsequently completed t he steroids yesterday. He states he has a continued cough with sputum production and makes it difficult to lay down. He has since then his time sitting in a chair due to the chronic cough. Patient came into [facility] emergency center for evaluation. CBC within normal limits, BUN 25, creatinine 0.7, blood sugar 106 lactic acid 1.3, ALT 117, INR 2.9, troponin 0.012. EKG sinus rhythm. Initial chest x-ray showed no acute pulmonary process. COPD. A repeat chest x-ray this morning reveals increasing right infrahilar opacities suspicious for unifocal pneumonia. Left basilar atelectasis is stable. Consult with Dr. Silva. 05/15: Patient went into A. fib RVR last evening and was started on Cardizem drip and moved to the cardiac stepdown unit. Patient has been seen by Dr. Talbot this morning and he has increased the Cardizem drip to 10 mg, continue Rythmol and continue Coumadin and increase Coreg to 37.5 mg twice daily. He remains in A. fib with RVR. INR today is 1.8. Patient denies any chest pain or shortness of breath. He states his cough has resolved. We will discontinue steroids as patient does note this will cause him to go into A. fib RVR. Heart rate is still 114-129, blood pressure 125/58, pulse ox 95% on room air, afebrile. Blood cultures no growth after 24 hours and sputum culture is in progress. Review of Systems Constitutional: Denies anorexia, Denies chills, Denies fatigue, Denies fever, Denies lethargy, Denies malaise, Denies poor appetite, Denies sweats, Denies weight loss Eyes: denies blurred vision, denies pain Ears, nose, mouth and throat: Denies headache, Denies nasal congestion, Denies nasal discharge, Denies sore throat, Denies vertigo Cardiovascular: Denies chest pain, Denies decreased exercise tolerance, Denies dyspnea on exertion, Denies edema, Denies leg edema, Denies lightheadedness, Denies shortness of breath, Denies syncope, reports palpitations Respiratory: Denies cough with sputum, Reports sleep apnea, Denies dyspnea, Denies excessive sputum, Denies hemoptysis, Denies home oxygen Gastrointestinal: Denies abdominal pain, Denies diarrhea, Denies loss of appetite, Denies nausea, Denies vomiting Genitourinary: Denies dysuria, Denies urinary retention Musculoskeletal: Denies frequent falls, Denies gait dysfunction, Denies muscle weakness, Denies myalgias Integumentary: Denies pruritus, Denies rash, Denies wounds Neurological: Denies change in mentation, Denies change in speech, Denies double vision, Denies numbness, Denies vertigo, Denies weakness Psychiatric: Denies anxiety, Denies depression Endocrine: Denies fatigue, Denies weight change Objective - Vital Signs Vital signs: Vital Signs Temp 98.0 F 05/15/19 11:42 Pulse 129 H 05/15/19 11:42 Resp 16 05/15/19 11:42 BP 125/58 05/15/19 11:42 Pulse Ox 95 05/15/19 11:42 Intake & Output 05/14/19 05/15/19 05/15/19 18:59 06:59 18:59 Intake Total 1090 240 180 Output Total 400 Balance 1090 -160 180 Weight 113.3 kg Intake: Intake, IV Titration 50 20 Amount Diltiazem 125 mg In 20 Sodium Chloride 0.9% 100 ml @ 5 MG/HR 5 mls/hr IV .Q24H [facility] Rx#:[id number] cefTRIAXone 1 gm In 50 Sodium Chloride 0.9% 50 ml @ 100 mls/hr IVPB Q24H [facility] Rx#:[id number] Oral 1040 220 180 Output: Urine 400 Other: Voiding Method Toilet Toilet Urinal Urinal - Exam Gen: This is an 84-year-old male. He is sitting up in a chair and appears to be comfortable and in no acute distress. No respiratory distress is noted. HEENT: Head is atraumatic, normocephalic. Pupils equal, round. Sclerae is anicteric. NECK: Supple. No JVD. No lymphadenopathy. No thyromegaly. LUNGS: Clear to auscultation. No wheezes or rhonchi. No intercostal retractions. HEART: Irregularly irregular rate and rhythm. No murmur. ABDOMEN: Soft. Bowel sounds are present. No masses. No tenderness. EXTREMITIES: No pedal edema. No calf tenderness. NEUROLOGICAL: Patient is awake, alert and oriented x3. Cranial nerves 2 through 12 are grossly intact. - Labs CBC & Chem 7: 05/14/19 06:52 05/14/19 06:52 Labs: Abnormal Lab Results - Last 24 Hours (Table) 05/15/19 Range/Units 05:57 PT 17.4 H (9.0-12.0) sec INR 1.8 H (<1.2) Microbiology - Last 24 Hours (Table) 05/13/19 17:20 Blood Culture - Preliminary Blood No Growth after 24 hours 05/14/19 10:42 Sputum Culture - Final Sputum Assessment and Plan Plan: 1. Persistent cough with possible developing pneumonia. Consult with Dr. Ricardo shay. Continue DuoNeb treatments 3 times daily and every 2 hours as needed, azithromycin 500 mg daily, Tessalon Perles 3 times daily, Rocephin daily, discontinue Solu-Medrol, Robitussin. 2. Paroxysmal atrial fibrillation, subsequently developed A. fib with RVR. Continue Rythmol 150 mg 3 times daily, Coreg increased to 37.5 mg twice daily, Coumadin on home dosing. Patient is currently on Cardizem drip 3. Obstructive sleep apnea. 4. Hypertension. Continue Coreg 5. Benign prostatic hypertrophy. 6. GI prophylaxis. Pepcid 7. DVT prophylaxis. Coumadin. Discharge plan: Home Impression and plan of care have been directed as dictated by the signing physician. Urmila Carey nurse practitioner acting as scribe for signing physician.
--- NOTE | 2019-05-15 13:36 | P.PN ---
Subjective Progress Note Date: 05/15/19 Principal diagnosis: Acute tracheobronchitis, atrial fibrillation 84-year-old male patient coming in today because of increased cough and congestion and increased sputum production. Denies having any significant shortness of breath. Nevertheless, the patient claims that he has not been doing a whole lot of activity and as such this cannot be accurately assessed. He is known to have paroxysmal atrial fibrillation currently his rhythm is sinus. His undergone previous cardiac ablation on multiple occasions. His other comorbidities include obstructive sleep apnea which is minimal and for that the patient is not receiving any CPAP treatment. The patient's hypertension and osteoarthritis and previous history of psoriasis. He is also impaired hearing. For the past 10 days, the patient has been having the above- mentioned symptoms and the patient was given a course of antibiotics and a short course of prednisone taper for his primary care physician without any much improvement. His chest x-ray showing right basilar pulmonary infiltrate suggestive of pneumonia. This is mainly present on today's chest x-ray and was actively absent on yesterday's chest x-ray. White cell count is not elevated and the results of the blood work and electrodes are all within normal limits. Currently on accommodation Rocephin and Zithromax. He is having some increased bronchospasm wheezing also. The patient is seen today 05/15/2019 in follow-up on the selective care unit. Deepak gray did have an episode of atrial fibrillation with a rapid ventricular response around 3:00 this morning. An A team was called and he was initiated on Cardizem drip and transferred to the selective care unit. He is seen there today in follow-up. He is currently sitting up in a chair at the bedside. Awake and alert in no acute distress. Heart rate is better controlled. No worsening shortness of breath, cough or congestion. He is breathing easier today as compared to yesterday. Maintaining O2 saturations in the mid 90s on room air. He is afebrile. Currently on Cardizem drip at 5 mg an hour. Objective - Vital Signs Vital signs: Vital Signs Temp 97.8 F 05/15/19 12:14 Pulse 100 05/15/19 12:14 Resp 18 05/15/19 12:14 BP 123/63 05/15/19 12:14 Pulse Ox 95 05/15/19 12:14 Intake & Output 05/14/19 05/15/19 05/15/19 18:59 06:59 18:59 Intake Total 1090 240 420 Output Total 400 Balance 1090 -160 420 Weight 113.3 kg Intake: Intake, IV Titration 50 20 Amount Diltiazem 125 mg In 20 Sodium Chloride 0.9% 100 ml @ 10 MG/HR 10 mls/hr IV .[id number] PHILLY Rx#: [id number] cefTRIAXone 1 gm In 50 Sodium Chloride 0.9% 50 ml @ 100 mls/hr IVPB Q24H [facility]ILLY Rx#:[id number] Oral 1040 220 420 Output: Urine 400 Other: Voiding Method Toilet Toilet Urinal Urinal # Voids 2 - Exam Gen. appearance, comfortable in no acute distress, on room air Head exam was generally normal. There was no scleral icterus or corneal arcus. Mucous membranes were moist. Neck was supple and without jugular venous distension, thyromegaly, or carotid bruits. Carotids were easily palpable bilaterally. There was no adenopathy. The patient has a Mallampati class IV. Lungs sounds are diminished and the patient has few scattered expiratory wheezes heard throughout the lung del angel bilaterally. Cardiac exam revealed the PMI to be normally situated and sized. The rhythm was irregular and no extrasystoles were noted during several minutes of auscultation. The first and second heart sounds were normal and physiologic splitting of the second heart sound was noted. There were no murmurs, rubs, clicks, or gallops. Abdominal exam revealed normal bowel sounds. The abdomen was soft, non-tender, and without masses, organomegaly, or appreciable enlargement of the abdominal aorta. Examination of the extremities revealed easily palpable radial, femoral and pedal pulses. There was no cyanosis, clubbing or edema. Examination of the skin revealed no evidence of significant rashes, suspicious appearing nevi or other concerning lesions. Neurologically the patient is awake and alert and there is no focal neurological deficits. - Labs CBC & Chem 7: 05/14/19 06:52 05/14/19 06:52 Labs: Abnormal Lab Results - Last 24 Hours (Table) 05/15/19 Range/Units 05:57 PT 17.4 H (9.0-12.0) sec INR 1.8 H (<1.2) Microbiology - Last 24 Hours (Table) 05/13/19 17:20 Blood Culture - Preliminary Blood No Growth after 24 hours 05/14/19 10:42 Sputum Culture - Final Sputum Assessment and Plan Assessment: 1 acute tracheobronchitis with some reactive bronchospasm wheezing and some limited infiltration in the right lung base which could be potentially atelectasis. A clear-cut pneumonia is not identified. 2 increased dyspnea and cough and congestion secondary to above 3 history of proximal atrial fibrillation current rhythm sinus 4 hypertension 5 history of mild positional obstructive sleep apnea currently on no CPAP treatment. 6. Impaired Hearing 7 psoriasis 8 osteoarthritis Plan The patient was seen and evaluated by Dr. Silva. He is improved from the pulmonary standpoint. He did go into A. fib with RVR last night and currently on a Cardizem drip. We'll discontinue the albuterol treatments. Continue steroids. Increase his activity as tolerated. We'll continue to follow. I, the cosigning physician, performed a history & physical examination of the patient. Lungs sounds with few scattered end expiratory wheezes. Maintaining good O2 saturations in the 90s on room air. I discussed the assessment and plan of care with my nurse practitioner, Edelmira Blackwood. I attest to the above note as dictated by her.
[2019-05-15] MEDS: WARFARIN 7.5 MG TAB PO SCH (17:15)
[2019-05-16] MEDS: DILTIAZEM 125 MG in SODIUM CHLORIDE 0.9% 100 ML IV SCH ×2 (05:02→22:27)
[2019-05-16 06:22] LABS: INR 1.9 (<1.2); Prothrombin Time 18.5 sec (9.0-12.0)
[2019-05-16] MEDS: CARVEDILOL 12.5 MG TAB PO SCH ×2 (06:32→17:17)
[2019-05-16] MEDS: MULTIVITAMINS, THERA 1 EACH TAB PO SCH (06:33)
[2019-05-16] MEDS: TAMSULOSIN 0.4 MG CAP.ER.24H PO SCH ×2 (06:33→20:51)
[2019-05-16] MEDS: FAMOTIDINE 20 MG TAB PO SCH (08:11)
[2019-05-16] MEDS: AZITHROMYCIN 500 MG TAB PO SCH (08:11)
[2019-05-16] MEDS: ACETAMINOPHEN TAB 325 MG TAB PO PRN (08:11)
[2019-05-16] MEDS: guaiFENesin SYRUP 100MG/5ML 200 MG/10 ML CUP PO PRN (08:12)
[2019-05-16] MEDS: PROPAFENONE 150 MG TAB PO SCH (08:15)
--- NOTE | 2019-05-16 10:12 | P.PN ---
Subjective Progress Note Date: 05/16/19 This is an 84-year-old male patient of Dr. Mosqueda with past medical history of paroxysmal atrial fibrillation status post cardiac ablation in 2007 as well as cardioversions a couple times since then, hypertension, osteoarthritis, obstructive sleep apnea but not currently on a CPAP, psoriasis, hard of hearing. Patient states that he has been under treatment with Dr. Mosqueda for pneumonia for the past 3 weeks. He completed a course of ciprofloxacin and was not better and then was given a prescription for prednisone. He states he completed his antibiotic and subsequently completed t he steroids yesterday. He states he has a continued cough with sputum production and makes it difficult to lay down. He has since then his time sitting in a chair due to the chronic cough. Patient came into [facility] emergency center for evaluation. CBC within normal limits, BUN 25, creatinine 0.7, blood sugar 106 lactic acid 1.3, ALT 117, INR 2.9, troponin 0.012. EKG sinus rhythm. Initial chest x-ray showed no acute pulmonary process. COPD. A repeat chest x-ray this morning reveals increasing right infrahilar opacities suspicious for unifocal pneumonia. Left basilar atelectasis is stable. Consult with Dr. Silva. 05/15: Patient went into A. fib RVR last evening and was started on Cardizem drip and moved to the cardiac stepdown unit. Patient has been seen by Dr. Talbot this morning and he has increased the Cardizem drip to 10 mg, continue Rythmol and continue Coumadin and increase Coreg to 37.5 mg twice daily. He remains in A. fib with RVR. INR today is 1.8. Patient denies any chest pain or shortness of breath. He states his cough has resolved. We will discontinue steroids as patient does note this will cause him to go into A. fib RVR. Heart rate is still 114-129, blood pressure 125/58, pulse ox 95% on room air, afebrile. Blood cultures no growth after 24 hours and sputum culture is in progress. 05/16: Patient is sitting up in chair in no apparent distress he did not sleep very well last night he denies any chest pain, less short of breath, he continues to be in atrial flutter ablation, he scheduled to go for cardioversion hopefully on Saturday. Review of Systems Constitutional: Denies anorexia, Denies chills, Denies fatigue, Denies fever, Denies lethargy, Denies malaise, Denies poor appetite, Denies sweats, Denies weight loss Eyes: denies blurred vision, denies pain Ears, nose, mouth and throat: Denies headache, Denies nasal congestion, Denies nasal discharge, Denies sore throat, Denies vertigo Cardiovascular: Denies chest pain, Denies decreased exercise tolerance, Denies dyspnea on exertion, Denies edema, Denies leg edema, Denies lightheadedness, Denies shortness of breath, Denies syncope Respiratory: Reports cough with sputum, Reports sleep apnea, Denies dyspnea, Denies excessive sputum, Denies hemoptysis, Denies home oxygen Gastrointestinal: Denies abdominal pain, Denies diarrhea, Denies loss of appetite, Denies nausea, Denies vomiting Genitourinary: Denies dysuria, Denies urinary retention Musculoskeletal: Denies frequent falls, Denies gait dysfunction, Denies muscle weakness, Denies myalgias Integumentary: Denies pruritus, Denies rash, Denies wounds Neurological: Denies change in mentation, Denies change in speech, Denies double vision, Denies numbness, Denies vertigo, Denies weakness Psychiatric: Denies anxiety, Denies depression Endocrine: Denies fatigue, Denies weight change Objective - Vital Signs Vital signs: Vital Signs Temp 98.1 F 05/16/19 04:00 Pulse 93 05/16/19 04:00 Resp 16 05/16/19 04:00 BP 137/70 05/16/19 04:00 Pulse Ox 95 05/16/19 04:00 Intake & Output 05/15/19 05/15/19 05/16/19 06:59 18:59 06:59 Intake Total 240 778 Output Total 400 600 Balance -160 778 -600 Weight 113.3 kg 111.2 kg Intake: Intake, IV Titration 20 Amount Diltiazem 125 mg In 20 Sodium Chloride 0.9% 100 ml @ 10 MG/HR 10 mls/hr IV .[id number] [facility]ILLY Rx#: [id number] Oral 220 778 Output: Urine 400 600 Other: Voiding Method Toilet Toilet Urinal Urinal # Voids 2 1 - Exam - Exam Gen: This is an 84-year-old male. He is sitting up in a chair and appears to be comfortable and in no acute distress. No respiratory distress is noted. HEENT: Head is atraumatic, normocephalic. Pupils equal, round. Sclerae is anicteric. NECK: Supple. No JVD. No lymphadenopathy. No thyromegaly. LUNGS: Clear to auscultation. No wheezes or rhonchi. No intercostal retractions. HEART: Irregularly irregular rate and rhythm. No murmur. ABDOMEN: Soft. Bowel sounds are present. No masses. No tenderness. EXTREMITIES: No pedal edema. No calf tenderness. NEUROLOGICAL: Patient is awake, alert and oriented x3. Cranial nerves 2 through 12 are grossly intact. - Labs CBC & Chem 7: 05/14/19 06:52 05/14/19 06:52 Labs: Abnormal Lab Results - Last 24 Hours (Table) 05/15/19 Range/Units 05:57 PT 17.4 H (9.0-12.0) sec INR 1.8 H (<1.2) Microbiology - Last 24 Hours (Table) 05/13/19 17:20 Blood Culture - Preliminary Blood No Growth after 48 hours 05/14/19 10:42 Gram Stain - Final Sputum Sputum Culture - Final Assessment and Plan Assessment: Assessment and Plan Plan: 1. Persistent cough with possible developing pneumonia. Consult with Dr. Gordon shay. Hold off DuoNeb as the patient is not short of breath, azithromycin 500 mg daily, Tessalon Perles 3 times daily, Rocephin daily, discontinue Solu-Medrol, Robitussin. 2. Paroxysmal atrial fibrillation, subsequently developed A. fib with RVR. Continue Rythmol 150 mg 3 times daily, Coreg increased to 37.5 mg twice daily, Coumadin on home dosing. Patient is currently on Cardizem drip 3. Obstructive sleep apnea. Patient will need to use the CPAP. 4. Hypertension. Continue Coreg 37.5 mg orally twice every day per 5. Benign prostatic hypertrophy. Monitor for urinary retention. 6. GI prophylaxis. Pepcid 20 mg orally once every day. 7. DVT prophylaxis. Coumadin monitor INR every day. 8. Discharge plan is home after cardioversion.
--- NOTE | 2019-05-16 12:34 | P.PN ---
Subjective Progress Note Date: 05/16/19 84-year-old male patient coming in today because of increased cough and congestion and increased sputum production. Denies having any significant shortness of breath. Nevertheless, the patient claims that he has not been doing a whole lot of activity and as such this cannot be accurately assessed. He is known to have paroxysmal atrial fibrillation currently his rhythm is sinus. His undergone previous cardiac ablation on multiple occasions. His other comorbidities include obstructive sleep apnea which is minimal and for that the patient is not receiving any CPAP treatment. The patient's hypert ension and osteoarthritis and previous history of psoriasis. He is also impaired hearing. For the past 10 days, the patient has been having the above- mentioned symptoms and the patient was given a course of antibiotics and a short course of prednisone taper for his primary care physician without any much improvement. His chest x-ray showing right basilar pulmonary infiltrate suggestive of pneumonia. This is mainly present on today's chest x-ray and was actively absent on yesterday's chest x-ray. White cell count is not elevated and the results of the blood work and electrodes are all within normal limits. Currently on accommodation Rocephin and Zithromax. He is having some increased bronchospasm wheezing also. The patient is seen today 05/15/2019 in follow-up on the selective care unit. He did have an episode of atrial fibrillation with a rapid ventricular response around 3:00 this morning. An A team was called and he was initiated on Cardizem drip and transferred to the selective care unit. He is seen there today in follow-up. He is currently sitting up in a chair at the bedside. Awake and alert in no acute distress. Heart rate is better controlled. No worsening monster rtness of breath, cough or congestion. He is breathing easier today as compared to yesterday. Maintaining O2 saturations in the mid 90s on room air. He is afebrile. Currently on Cardizem drip at 5 mg an hour. 84-year-old male patient coming in today because of increased cough and congestion and increased sputum production. Denies having any significant shortness of breath. Nevertheless, the patient claims that he has not been doing a whole lot of activity and as such this cannot be accurately assessed. He is known to have paroxysmal atrial fibrillation currently his rhythm is sinus. His undergone previous cardiac ablation on multiple occasions. His other comorbidities include obstructive sleep apnea which is minimal and for that the patient is not receiving any CPAP treatment. The patient's hypertension and osteoarthritis and previous history of psoriasis. He is also impaired hearing. For the past 10 days, the patient has been having the above- mentioned symptoms and the patient was given a course of antibiotics and a short course of prednisone taper for his primary care physician without any much improvement. His chest x-ray showing right basilar pulmonary infiltrate suggestive of pneumonia. This is mainly present on today's chest x-ray and was actively absent on yesterday's chest x-ray. White cell count is not elevated and the results of the blood work and electrodes are all within normal limits. Currently on accommodation Rocephin and Zithromax. He is having some increased bronchospasm wheezing also. The patient is seen today 05/15/2019 in follow-up on the selective care unit. He did have an episode of atrial fibrillation with a rapid ventricular response around 3:00 this morning. An A team was called and he was initiated on Cardizem drip and transferred to the selective care unit. He is seen there today in follow-up. He is currently sitting up in a chair at the bedside. Awake and alert in no acute distress. Heart rate is better controlled. No worsening shortness of breath, cough or congestion. He is breathing easier today as compared to yesterday. Maintaining O2 saturations in the mid 90s on room air. He is afebrile. Currently on Cardizem drip at 5 mg an hour. On today's evaluation of 05/16/2019, the patient is having some limited cough. Chest congestion is improved. I took him off the albuterol nebulized treatments. He is having chair fibrillation and he is undergone an echocardiogram and results are still pending for now. No nausea. No vomiting. No chest pain. No other complaints otherwise for now. Patient is on a Cardizem drip at 10 mg an hour. The patient will need also a cardioversion this will be done tomorrow. His INR today is at 1.9. Objective - Vital Signs Vital signs: Vital Signs Temp 97.8 F 05/16/19 12:00 Pulse 78 05/16/19 12:00 Resp 18 05/16/19 12:00 BP 133/73 05/16/19 12:00 Pulse Ox 96 05/16/19 12:00 Intake & Output 05/15/19 05/16/19 05/16/19 18:59 06:59 18:59 Intake Total 778 236 Output Total 600 200 Balance 778 -600 36 Weight 111.2 kg Intake: Oral 778 236 Output: Urine 600 200 Other: Voiding Method Toilet Toilet Urinal Urinal # Voids 2 1 - Exam Gen. appearance, comfortable in no acute distress, on room air Head exam was generally normal. There was no scleral icterus or corneal arcus. Mucous membranes were moist. Neck was supple and without jugular venous distension, thyromegaly, or carotid bruits. Carotids were easily palpable bilaterally. There was no adenopathy. The patient has a Mallampati class IV. Lungs sounds are diminished and the patient has few scattered expiratory wheezes heard throughout the lung del angel bilaterally. Cardiac exam revealed the PMI to be normally situated and sized. The rhythm was irregular and no extrasystoles were noted during several minutes of auscultation. The first and second heart sounds were normal and physiologic splitting of the second heart sound was noted. There were no murmurs, rubs, clicks, or gallops. Abdominal exam revealed normal bowel sounds. The abdomen was soft, non-tender, and without masses, organomegaly, or appreciable enlargement of the abdominal aorta. Examination of the extremities revealed easily palpable radial, femoral and pe iza pulses. There was no cyanosis, clubbing or edema. Examination of the skin revealed no evidence of significant rashes, suspicious appearing nevi or other concerning lesions. Neurologically the patient is awake and alert and there is no focal neurological deficits. - Labs CBC & Chem 7: 05/14/19 06:52 05/14/19 06:52 Labs: Abnormal Lab Results - Last 24 Hours (Table) 05/16/19 Range/Units 05:58 PT 18.5 H (9.0-12.0) sec INR 1.9 H (<1.2) Microbiology - Last 24 Hours (Table) 05/13/19 17:20 Blood Culture - Preliminary Blood No Growth after 48 hours 05/14/19 10:42 Gram Stain - Final Sputum Sputum Culture - Final Assessment and Plan Plan: 1 acute tracheobronchitis with some reactive bronchospasm wheezing and some limited infiltration in the right lung base which could be potentially atelectasis. A clear-cut pneumonia is not identified. 2 increased dyspnea and cough and congestion secondary to above 3 history of proximal atrial fibrillation current rhythm is back into atrial fibrillation the patient is on a Cardizem drip at 10 mg an hour and the patient's INR is at 1.9. The patient is being sent for cardioversion tomorrow. 4 hypertension 5 history of mild positional obstructive sleep apnea currently on no CPAP treatment. 6. Impaired Hearing 7 psoriasis 8 osteoarthritis Plan Continued IV Solu-Medrol. Add Atrovent about treatments 3 times a day. Add Pulmicort Respules twice a day. Continue articulation with warfarin. Monitor PT/INR. The echocardiogram was done. Cardioversion in a.m.
--- NOTE | 2019-05-16 13:00 | P.PN ---
Subjective This is a pleasant 84-year-old male past medical history significant for chronic persistent atrial fibrillation status post cardioversion in the past and subsequent ablations most recently in 2018 he underwent cryoablation of pulmonary veins, COPD and hypertension. Shortly after his ablation he had an episode of a-fib and was placed on rhythmol. He is seen and examined sitting up in the chair with his at the bedside. He is currently receiving treatment for tracheobronchitis and is on antibiotics. He continues to be in atrial fibrillation with variable rates. His rates fluctuating between 90s and 110. He denies symptoms of chest discomfort, shortness of breath, dizziness or palpitations. He is currently on an IV Cardizem infusion. Laboratory data reviewed, INR today is 1.9. Blood pressure 133/73 heart rate 78 afebrile maintaining oxygen saturation on room air. GENERAL: Well-appearing, well-nourished and in no acute distress. NECK: Supple without JVD or thyromegaly. LUNGS: Breath sounds clear to auscultation bilaterally. Respiration equal and unlabored. No wheezes, rales or rhonchi. HEART: Irregular rate and rhythm with systolic ejection murmur at the left sternal border, no rubs or gallops. S1 and S2 heard. EXTREMITIES: Normal range of motion, trace bilateral lower extremity nonpitting edema. No clubbing or cyanosis. Peripheral pulses intact. ASSESSMENT Chronic persiste atrial fibrillation with poorly controlled ventricular rate s/p ablation 12/2017. Currently on rhythmol s/p ablation for ongoing episode of a-fib Non-ischemic cardiomyopathy COPD Tracheobronchitis Hypertension Subtherapeutic INR PLAN Increase rhythmol to 225 mg TID. Echocardiogram has been obtained and will be reviewed. No plans for cardioversion. He has had cardioversion in the past that was unsuccessful and is s/p ablation. We will work with medications. Nurse Practitioner note has been reviewed, I agree with a documented findings and plan of care. Patient was seen and examined. Objective - Vital Signs Vital signs: Vital Signs Temp 97.8 F 05/16/19 12:00 Pulse 78 05/16/19 12:00 Resp 18 05/16/19 12:00 BP 133/73 05/16/19 12:00 Pulse Ox 96 05/16/19 12:00 Intake & Output 05/15/19 05/16/19 05/16/19 18:59 06:59 18:59 Intake Total 778 236 Output Total 600 200 Balance 778 -600 36 Weight 111.2 kg Intake: Oral 778 236 Output: Urine 600 200 Other: Voiding Method Toilet Toilet Urinal Urinal # Voids 2 1 - Labs CBC & Chem 7: 05/14/19 06:52 05/14/19 06:52 Labs: Abnormal Lab Results - Last 24 Hours (Table) 05/16/19 Range/Units 05:58 PT 18.5 H (9.0-12.0) sec INR 1.9 H (<1.2) Microbiology - Last 24 Hours (Table) 05/13/19 17:20 Blood Culture - Preliminary Blood No Growth after 48 hours 05/14/19 10:42 Gram Stain - Final Sputum Sputum Culture - Final
[2019-05-16] MEDS: IPRATROPIUM 0.5 MG/2.5 ML NEBU INHALATION SCH ×2 (13:11→20:03)
--- NOTE | 2019-05-16 14:31 | ECHOF ---
Referral Reason:afib MEASUREMENTS -------- HEIGHT: 180.3 cm WEIGHT: 111.1 kg BP: IVSd: 1.4 cm (0.6 - 1.1) LVIDd: 5.4 cm (3.9 - 5.3) LVPWd: 1.5 cm (0.6 - 1.1) IVSs: 2.1 cm LVIDs: 3.0 cm LVPWs: 2.2 cm Ao Diam: 3.8 cm (2.0 - 3.7) AV Cusp: 1.9 cm (1.5 - 2.6) LA Diam: 4.2 cm (2.7 - 3.8) MV EXCURSION: 13.883 mm (> 18.000) MV EF SLOPE: 83 mm/s (70 - 150) EPSS: 1.9 cm AR PHT: 362 ms RAP: 5.00 mmHg RVSP: 22.92 mmHg FINDINGS -------- Atrial fibrillation. This was a technically difficult study with suboptimal views. The left ventricular size is normal. There is moderate concentric left ventricular hypertrophy. O verall left ventricular systolic function is low-normal with, an EF between 50 - 55 %. The right ventricle is normal in size. The left atrium is mildly dilated. The right atrial size is normal. 5.0mg of Lumason was utilized for enhancement of images Aortic valve is trileaflet and is mildly thickened. There is mild aortic regurgitation. The mitral valve is normal. The mitral valve leaflets are mildly thickened. Mild mitral regurgita tion is present. The tricuspid valve appears structurally normal. Mild tricuspid regurgitation present. Right vent ricular systolic pressure is normal at < 35 mmHg. There is no pulmonic regurgitation present. The aortic root size is normal. IVC Not well visulized. There is no pericardial effusion. CONCLUSIONS -------- 1. Atrial fibrillation. 2. This was a technically difficult study with suboptimal views. 3. The left ventricular size is normal. 4. There is moderate concentric left ventricular hypertrophy. 5. Overall left ventricular systolic function is low-normal with, an EF between 50 - 55 %. 6. The right ventricle is normal in size. 7. The left atrium is mildly dilated. 8. The right atrial size is normal. 9. 5.0mg of Lumason was utilized for enhancement of images 10. Aortic valve is trileaflet and is mildly thickened. 11. There is mild aortic regurgitation. 12. The mitral valve is normal. 13. The mitral valve leaflets are mildly thickened. 14. Mild mitral regurgitation is present. 15. The tricuspid valve appears structurally normal. 16. Mild tricuspid regurgitation present. 17. Right ventricular systolic pressure is normal at < 35 mmHg. 18. There is no pulmonic regurgitation present. 19. The aortic root size is normal. 20. IVC Not well visulized. 21. There is no pericardial effusion. ASSISTANT ANALYST: Nell Barroso RDCS
[2019-05-16] MEDS: PROPAFENONE 225 MG TAB PO SCH ×2 (15:14→23:53)
[2019-05-16] MEDS: WARFARIN 7.5 MG TAB PO SCH (17:17)
[2019-05-16] MEDS: BUDESONIDE 1 MG/2 ML NEBU INHALATION SCH ×2 (20:03→20:07)
[2019-05-17] MEDS: CARVEDILOL 12.5 MG TAB PO SCH ×2 (04:57→17:06)
[2019-05-17 06:13] LABS: INR 2.7 (<1.2); Prothrombin Time 26.5 sec (9.0-12.0)
[2019-05-17] MEDS: TAMSULOSIN 0.4 MG CAP.ER.24H PO SCH ×2 (06:35→20:02)
[2019-05-17] MEDS: MULTIVITAMINS, THERA 1 EACH TAB PO SCH (06:35)
[2019-05-17] MEDS: ACETAMINOPHEN TAB 325 MG TAB PO PRN (06:37)
[2019-05-17 07:14] LABS: ALT 97 U/L (21-72); AST 40 U/L (17-59); African American GFR (CKD) >90 (>60 ml/min/1.73 sqM); Albumin 3.2 g/dL (3.5-5.0); Alkaline Phosphatase 47 U/L (38-126); Anion Gap 5 mmol/L; Blood Urea Nitrogen 29 mg/dL (9-20); Calcium 8.7 mg/dL (8.4-10.2); Carbon Dioxide 28 mmol/L (22-30); Chloride 107 mmol/L (98-107); Glucose 102 mg/dL (74-99); Magnesium 2.1 mg/dL (1.6-2.3); Non-African American GFR(CKD) 86 (>60 ml/min/1.73 sqM); Potassium 4.4 mmol/L (3.5-5.1); Sodium 140 mmol/L (137-145); Total Bilirubin 0.3 mg/dL (0.2-1.3); Total Protein 5.9 g/dL (6.3-8.2)
[2019-05-17 07:15] LABS: Basophils % (A) 0 %; Eosinophils # (A) 0.1 k/uL (0-0.7); Eosinophils % (A) 1 %; HCT 41.4 % (39.0-53.0); HGB 13.8 gm/dL (13.0-17.5); Lymphocytes # (A) 1.4 k/uL (1.0-4.8); Lymphocytes % (A) 16 %; MCHC 33.4 g/dL (31.0-37.0); MCV 95.8 fL (80.0-100.0); Mean Platelet Volume 6.8; Monocytes # (A) 0.6 k/uL (0-1.0); Monocytes % (A) 7 %; Neutrophils # (A) 6.8 k/uL (1.3-7.7); Neutrophils % (A) 76 %; Platelet Count 163 k/uL (150-450); RBC 4.32 m/uL (4.30-5.90); RDW 13.2 % (11.5-15.5)
[2019-05-17] MEDS: FAMOTIDINE 20 MG TAB PO SCH (07:41)
[2019-05-17] MEDS: PROPAFENONE 225 MG TAB PO SCH ×3 (07:41→23:32)
[2019-05-17] MEDS: BUDESONIDE 1 MG/2 ML NEBU INHALATION SCH ×2 (08:39→19:56)
[2019-05-17] MEDS: IPRATROPIUM 0.5 MG/2.5 ML NEBU INHALATION SCH ×3 (08:39→19:56)
--- NOTE | 2019-05-17 10:11 | P.PN ---
Subjective Progress Note Date: 05/17/19 This is an 84-year-old male patient of Dr. Mosqueda with past medical history of paroxysmal atrial fibrillation status post cardiac ablation in 2007 as well as cardioversions a couple times since then, hypertension, osteoarthritis, obstructive sleep apnea but not currently on a CPAP, psoriasis, hard of hearing. Patient states that he has been under treatment with Dr. Mosqueda for pneumonia for the past 3 weeks. He completed a course of ciprofloxacin and was not better and then was given a prescription for prednisone. He states he completed his antibiotic and subsequently completed t he steroids yesterday. He states he has a continued cough with sputum production and makes it difficult to lay down. He has since then his time sitting in a chair due to the chronic cough. Patient came into [facility] emergency center for evaluation. CBC within normal limits, BUN 25, creatinine 0.7, blood sugar 106 lactic acid 1.3, ALT 117, INR 2.9, troponin 0.012. EKG sinus rhythm. Initial chest x-ray showed no acute pulmonary process. COPD. A repeat chest x-ray this morning reveals increasing right infrahilar opacities suspicious for unifocal pneumonia. Left basilar atelectasis is stable. Consult with Dr. Silva. 05/15: Patient went into A. fib RVR last evening and was started on Cardizem drip and moved to the cardiac stepdown unit. Patient has been seen by Dr. Talbot this morning and he has increased the Cardizem drip to 10 mg, continue Rythmol and continue Coumadin and increase Coreg to 37.5 mg twice daily. He remains in A. fib with RVR. INR today is 1.8. Patient denies any chest pain or shortness of breath. He states his cough has resolved. We will discontinue steroids as patient does note this will cause him to go into A. fib RVR. Heart rate is still 114-129, blood pressure 125/58, pulse ox 95% on room air, afebrile. Blood cultures no growth after 24 hours and sputum culture is in progress. 05/16: Patient is sitting up in chair in no apparent distress he did not sleep very well last night he denies any chest pain, less short of breath, he continues to be in atrial flutter ablation, he scheduled to go for cardioversion hopefully on Saturday. 05/17: Patient is sitting up in a chair in no apparent distress, he is feeling better today he denies any chest pain or any shortness breath, he is not going for any cardioversion this was discussed with cardiology at this point in time, we will continue with Coumadin we will continue with Cardizem drip, we'll try to switch the patient to oral medication so the patient can be discharged home in the next 24 hours. Review of Systems Constitutional: Denies anorexia, Denies chills, Denies fatigue, Denies fever, Denies lethargy, Denies malaise, Denies poor appetite, Denies sweats, Denies weight loss Eyes: denies blurred vision, denies pain Ears, nose, mouth and throat: Denies headache, Denies nasal congestion, Denies nasal discharge, Denies sore throat, Denies vertigo Cardiovascular: Denies chest pain, Denies decreased exercise tolerance, Denies dyspnea on exertion, Denies edema, Denies leg edema, Denies lightheadedness, Denies shortness of breath, Denies syncope Respiratory: Reports cough with sputum, Reports sleep apnea, Denies dyspnea, Denies excessive sputum, Denies hemoptysis, Denies home oxygen Gastrointestinal: Denies abdominal pain, Denies diarrhea, Denies loss of appetite, Denies nausea, Denies vomiting Genitourinary: Denies dysuria, Denies urinary retention Musculoskeletal: Denies frequent falls, Denies gait dysfunction, Denies muscle weakness, Denies myalgias Integumentary: Denies pruritus, Denies rash, Denies wounds Neurological: Denies change in mentation, Denies change in speech, Denies double vision, Denies numbness, Denies vertigo, Denies weakness Psychiatric: Denies anxiety, Denies depression Endocrine: Denies fatigue, Denies weight change Objective - Vital Signs Vital signs: Vital Signs Temp 97.8 F 05/17/19 04:00 Pulse 95 05/17/19 04:00 Resp 18 05/17/19 04:00 BP 135/80 05/17/19 04:00 Pulse Ox 96 05/17/19 04:00 Intake & Output 05/16/19 05/16/19 05/17/19 06:59 18:59 06:59 Intake Total 125 486 100 Output Total 600 200 200 Balance -475 286 -100 Weight 111.2 kg 110.9 kg Intake: Intake, IV Titration 125 Amount Diltiazem 125 mg In 125 Sodium Chloride 0.9% 100 ml @ 10 MG/HR 10 mls/hr IV .[id number] [facility] Rx#: [id number] Oral 486 100 Output: Urine 600 200 200 Other: Voiding Method Toilet Toilet Toilet Urinal Urinal Urinal # Voids 1 1 - Exam - Exam Gen: This is an 84-year-old male. He is sitting up in a chair and appears to be comfortable and in no acute distress. No respiratory distress is noted. HEENT: Head is atraumatic, normocephalic. Pupils equal, round. Sclerae is anicteric. NECK: Supple. No JVD. No lymphadenopathy. No thyromegaly. LUNGS: Clear to auscultation. No wheezes or rhonchi. No intercostal retractions. HEART: Irregularly irregular rate and rhythm. No murmur. ABDOMEN: Soft. Bowel sounds are present. No masses. No tenderness. EXTREMITIES: No pedal edema. No calf tenderness. NEUROLOGICAL: Patient is awake, alert and oriented x3. Cranial nerves 2 through 12 are grossly intact. - Labs CBC & Chem 7: 05/17/19 05:46 05/17/19 05:46 Labs: Abnormal Lab Results - Last 24 Hours (Table) 05/16/19 Range/Units 05:58 PT 18.5 H (9.0-12.0) sec INR 1.9 H (<1.2) Microbiology - Last 24 Hours (Table) 05/13/19 17:20 Blood Culture - Preliminary Blood No Growth after 72 hours Assessment and Plan Assessment: Assessment and Plan Plan: 1. Persistent cough with possible developing pneumonia. Consult with Dr. Ricardo shay. Hold off DuoNeb as the patient is not short of breath, azithromycin 500 mg daily, Tessalon Perles 3 times daily, Rocephin daily, discontinue Solu-Medrol, Robitussin. 2. Paroxysmal atrial fibrillation, subsequently developed A. fib with RVR. Continue Rythmol 150 mg 3 times daily, Coreg increased to 37.5 mg twice daily, Coumadin on home dosing. Patient is currently on Cardizem drip will try to switch to oral medicine to facilitate her discharge in the next 24 hours. 3. Obstructive sleep apnea. Patient will need to use the CPAP. 4. Hypertension. Continue Coreg 37.5 mg orally twice every day per 5. Benign prostatic hypertrophy. Monitor for urinary retention. 6. GI prophylaxis. Pepcid 20 mg orally once every day. 7. DVT prophylaxis. Coumadin monitor INR every day. 8. Discharge plan is home hopefully tomorrow morning.
--- NOTE | 2019-05-17 10:53 | P.PN ---
Subjective This is a pleasant 84-year-old male past medical history significant for chronic persistent atrial fibrillation status post cardioversion in the past and subsequent ablations most recently in 2018 he underwent cryoablation of pulmonary veins, COPD and hypertension. Shortly after his ablation he had an episode of a-fib and was placed on rhythmol. He is seen and examined sitting up in the chair. He denies chest pain, shortness of breath, dizziness or palpitations. He continues to be in atrial fibrillation, his rates are under better control today. Blood pressure 123/62 afebrile and maintaining oxygen saturation on room air. Laboratory data reviewed, CBC unremarkable, INR 2.7, sodium 140, potassium 4.4, creatinine 0.73. GENERAL: Well-appearing, well-nourished and in no acute distress. NECK: Supple without JVD or thyromegaly. LUNGS: Breath sounds clear to auscultation bilaterally. Respiration equal and unlabored. No wheezes, rales or rhonchi. HEART: Irregular rate and rhythm with systolic ejection murmur at the left parker al border, no rubs or gallops. S1 and S2 heard. EXTREMITIES: Normal range of motion, trace bilateral lower extremity nonpitting edema. No clubbing or cyanosis. Peripheral pulses intact. ASSESSMENT Chronic persistent atrial fibrillation with poorly controlled ventricular rate s/p ablation 12/2017. Currently on rhythmol s/p ablation for ongoing episode of a-fib Non-ischemic cardiomyopathy COPD Tracheobronchitis Hypertension Subtherapeutic INR PLAN Discontinue cardizem infusion. Continue rhythmol as previously ordered. No plans for cardioversion, this was explained to the patient and he understands the plan at this point. Nurse Practitioner note has been reviewed, I agree with a documented findings and plan of care. Patient was seen and examined. Objective - Vital Signs Vital signs: Vital Signs Temp 97.8 F 05/17/19 08:00 Pulse 76 05/17/19 08:00 Resp 18 05/17/19 08:00 BP 123/62 05/17/19 08:00 Pulse Ox 95 05/17/19 08:00 Intake & Output 05/16/19 05/17/19 05/17/19 18:59 06:59 18:59 Intake Total 486 100 180 Output Total 200 200 Balance 286 -100 180 Weight 110.9 kg Intake: Oral 486 100 180 Output: Urine 200 200 Other: Voiding Method Toilet Toilet Toilet Urinal Urinal Urinal # Voids 1 - Labs CBC & Chem 7: 05/17/19 05:46 05/17/19 05:46 Labs: Abnormal Lab Results - Last 24 Hours (Table) 05/17/19 05/17/19 Range/Units 05:46 05:46 PT 26.5 H (9.0-12.0) sec INR 2.7 H (<1.2) BUN 29 H (9-20) mg/dL Glucose 102 H (74-99) mg/dL ALT 97 H (21-72) U/L Total Protein 5.9 L (6.3-8.2) g/dL Albumin 3.2 L (3.5-5.0) g/dL Microbiology - Last 24 Hours (Table) 05/13/19 17:20 Blood Culture - Preliminary Blood No Growth after 72 hours
--- NOTE | 2019-05-17 15:30 | P.PN ---
Subjective Progress Note Date: 05/17/19 84-year-old male patient coming in today because of increased cough and congestion and increased sputum production. Denies having any significant shortness of breath. Nevertheless, the patient claims that he has not been doing a whole lot of activity and as such this cannot be accurately assessed. He is known to have paroxysmal atrial fibrillation currently his rhythm is sinus. His undergone previous cardiac ablation on multiple occasions. His other comorbidities include obstructive sleep apnea which is minimal and for that the patient is not receiving any CPAP treatment. The patient's hypert ension and osteoarthritis and previous history of psoriasis. He is also impaired hearing. For the past 10 days, the patient has been having the above- mentioned symptoms and the patient was given a course of antibiotics and a short course of prednisone taper for his primary care physician without any much improvement. His chest x-ray showing right basilar pulmonary infiltrate suggestive of pneumonia. This is mainly present on today's chest x-ray and was actively absent on yesterday's chest x-ray. White cell count is not elevated and the results of the blood work and electrodes are all within normal limits. Currently on accommodation Rocephin and Zithromax. He is having some increased bronchospasm wheezing also. The patient is seen today 05/15/2019 in follow-up on the selective care unit. He did have an episode of atrial fibrillation with a rapid ventricular response around 3:00 this morning. An A team was called and he was initiated on Cardizem drip and transferred to the selective care unit. He is seen there today in follow-up. He is currently sitting up in a chair at the bedside. Awake and alert in no acute distress. Heart rate is better controlled. No worsening monster rtness of breath, cough or congestion. He is breathing easier today as compared to yesterday. Maintaining O2 saturations in the mid 90s on room air. He is afebrile. Currently on Cardizem drip at 5 mg an hour. 84-year-old male patient coming in today because of increased cough and congestion and increased sputum production. Denies having any significant shortness of breath. Nevertheless, the patient claims that he has not been doing a whole lot of activity and as such this cannot be accurately assessed. He is known to have paroxysmal atrial fibrillation currently his rhythm is sinus. His undergone previous cardiac ablation on multiple occasions. His other comorbidities include obstructive sleep apnea which is minimal and for that the patient is not receiving any CPAP treatment. The patient's hypertension and osteoarthritis and previous history of psoriasis. He is also impaired hearing. For the past 10 days, the patient has been having the above- mentioned symptoms and the patient was given a course of antibiotics and a short course of prednisone taper for his primary care physician without any much improvement. His chest x-ray showing right basilar pulmonary infiltrate suggestive of pneumonia. This is mainly present on today's chest x-ray and was actively absent on yesterday's chest x-ray. White cell count is not elevated and the results of the blood work and electrodes are all within normal limits. Currently on accommodation Rocephin and Zithromax. He is having some increased bronchospasm wheezing also. The patient is seen today 05/15/2019 in follow-up on the selective care unit. He did have an episode of atrial fibrillation with a rapid ventricular response around 3:00 this morning. An A team was called and he was initiated on Cardizem drip and transferred to the selective care unit. He is seen there today in follow-up. He is currently sitting up in a chair at the bedside. Awake and alert in no acute distress. Heart rate is better controlled. No worsening shortness of breath, cough or congestion. He is breathing easier today as compared to yesterday. Maintaining O2 saturations in the mid 90s on room air. He is afebrile. Currently on Cardizem drip at 5 mg an hour. On today's evaluation of 05/16/2019, the patient is having some limited cough. Chest congestion is improved. I took him off the albuterol nebulized treatments. He is having chair fibrillation and he is undergone an echocardiogram and results are still pending for now. No nausea. No vomiting. No chest pain. No other complaints otherwise for now. Patient is on a Cardizem drip at 10 mg an hour. The patient will need also a cardioversion this will be done tomorrow. His INR today is at 1.9. On 05/17/2019, the patient remains in atrial fibrillation. He is cough and congestion has subsided. He has no specific complaints. Does not want continue to respiratory medications. His PT/INR is therapeutic. No immediate plans for cardioversion and he will be considered for this on outpatient basis. He is also started on Rythmol. Objective - Vital Signs Vital signs: Vital Signs Temp 97.8 F 05/17/19 08:00 Pulse 79 05/17/19 11:46 Resp 18 05/17/19 11:46 BP 141/81 05/17/19 11:46 Pulse Ox 96 05/17/19 11:46 Intake & Output 05/16/19 05/17/19 05/17/19 18:59 06:59 18:59 Intake Total 486 100 480 Output Total 200 200 Balance 286 -100 480 Weight 110.9 kg Intake: Oral 486 100 480 Output: Urine 200 200 Other: Voiding Method Toilet Toilet Toilet Urinal Urinal Urinal # Voids 1 1 - Exam Gen. appearance, comfortable in no acute distress, on room air Head exam was generally normal. There was no scleral icterus or corneal arcus. Mucous membranes were moist. Neck was supple and without jugular venous distension, thyromegaly, or carotid bruits. Carotids were easily palpable bilaterally. There was no adenopathy. The patient has a Mallampati class IV. Lungs sounds are diminished and the patient has few scattered expiratory wheezes heard throughout the lung del angel bilaterally. Cardiac exam revealed the PMI to be normally situated and sized. The rhythm was irregular and no extrasystoles were noted during several minutes of auscultation. The first and second heart sounds were normal and physiologic splitting of the second heart sound was noted. There were no murmurs, rubs, cli cks, or gallops. Abdominal exam revealed normal bowel sounds. The abdomen was soft, non-tender, and without masses, organomegaly, or appreciable enlargement of the abdominal aorta. Examination of the extremities revealed easily palpable radial, femoral and pedal pulses. There was no cyanosis, clubbing or edema. Examination of the skin revealed no evidence of significant rashes, suspicious appearing nevi or other concerning lesions. Neurologically the patient is awake and alert and there is no focal neurological deficits. - Labs CBC & Chem 7: 05/17/19 05:46 05/17/19 05:46 Labs: Abnormal Lab Results - Last 24 Hours (Table) 05/17/19 05/17/19 Range/Units 05:46 05:46 PT 26.5 H (9.0-12.0) sec INR 2.7 H (<1.2) BUN 29 H (9-20) mg/dL Glucose 102 H (74-99) mg/dL ALT 97 H (21-72) U/L Total Protein 5.9 L (6.3-8.2) g/dL Albumin 3.2 L (3.5-5.0) g/dL Microbiology - Last 24 Hours (Table) 05/13/19 17:20 Blood Culture - Preliminary Blood No Growth after 72 hours Assessment and Plan Plan: 1 acute tracheobronchitis with some reactive bronchospasm wheezing and some limited infiltration in the right lung base which could be potentially atelectasis. A clear-cut pneumonia is not identified. The patient is clinically improved. Declining his breathing medications. 2 increased dyspnea and cough and congestion secondary to above 3 history of proximal atrial fibrillation current rhythm is back into atrial fibrillation the patient is currently on a combination of Rythmol and Coreg. Cardizem drip has been discontinued. 4 hypertension 5 history of mild positional obstructive sleep apnea currently on no CPAP treatment. 6. Impaired Hearing 7 psoriasis 8 osteoarthritis Plan Management of atrial fibrillation per cardiology. Pulmonary and critical care services we'll sign off.
[2019-05-17] MEDS ORDERED: ONDANSETRON 4 MG/2 ML VIAL IVP PRN (17:58)
[2019-05-17] MEDS ORDERED: WARFARIN 2.5 MG TAB PO ONE (18:00)
[2019-05-17] MEDS: guaiFENesin SYRUP 100MG/5ML 200 MG/10 ML CUP PO PRN (20:02)
[2019-05-17 23:22] LABS: Magnesium 2.2 mg/dL (1.6-2.3); Potassium 4.8 mmol/L (3.5-5.1)
[2019-05-18] MEDS: CARVEDILOL 12.5 MG TAB PO SCH ×2 (04:33→16:33)
[2019-05-18] MEDS: TAMSULOSIN 0.4 MG CAP.ER.24H PO SCH ×2 (06:28→20:09)
[2019-05-18] MEDS: MULTIVITAMINS, THERA 1 EACH TAB PO SCH (06:28)
[2019-05-18 06:46] LABS: INR 3.2 (<1.2); Prothrombin Time 30.7 sec (9.0-12.0)
[2019-05-18] MEDS: PROPAFENONE 225 MG TAB PO SCH ×3 (09:24→23:36)
[2019-05-18] MEDS: FAMOTIDINE 20 MG TAB PO SCH (09:24)
[2019-05-18] MEDS: BUDESONIDE 1 MG/2 ML NEBU INHALATION SCH ×2 (10:04→21:02)
[2019-05-18] MEDS: IPRATROPIUM 0.5 MG/2.5 ML NEBU INHALATION SCH ×3 (10:04→21:02)
--- NOTE | 2019-05-18 12:09 | P.PN ---
Subjective Progress Note Date: 05/18/19 05/18/2019 This is a pleasant 84-year-old male past medical history significant for chronic persistent atrial fibrillation status post cardioversion in the past and subsequent ablations most recently in 2018 he underwent cryoablation of pulmonary veins, COPD and hypertension. Shortly after his ablation he had an episode of a-fib and was placed on rhythmol. He was admitted to the hospital on this occasion with tracheobronchitis, he continues at this time to be in atrial fibrillation. This morning his heart rate is around 200. He is on the Rythmol 3 times a day Coreg. INR this morning 3.2. Blood pressure 120/70, 95% on room air. Continues to complain of productive cough this morning. Objective - Vital Signs Vital signs: Vital Signs Temp 98.4 F 05/18/19 08:00 Pulse 125 H 05/18/19 10:16 Resp 18 05/18/19 08:00 BP 119/72 05/18/19 08:00 Pulse Ox 97 05/18/19 10:05 Intake & Output 05/17/19 05/18/19 05/18/19 18:59 06:59 18:59 Intake Total 720 840 Output Total 675 Balance 720 -675 840 Weight 113 kg Intake: Oral 720 840 Output: Urine 675 Other: Voiding Method Toilet Toilet Toilet Urinal Urinal Urinal # Voids 1 - Exam PHYSICAL EXAMINATION: GENERAL: 84-year-old gentleman in no acute distress at the time of my examination HEENT: Head is atraumatic, normocephalic. Pupils equal, round. Sclera anicteric. Conjunctiva are clear. Mucous membranes of the mouth are moist. Neck is supple. There is no elevated jugular venous pressure. No carotid bruit is heard. HEART EXAMINATION: Heart S1 and S2 irregularly irregular a systolic ejection murmur is heard CHEST EXAMINATION: Lungs reveal scattered coarse rhonchi throughout. ABDOMEN: Soft, nontender. Bowel sounds are heard. No organomegaly noted. EXTREMITIES: 2+ peripheral pulses with no evidence of peripheral edema and no calf tenderness noted. NEUROLOGIC patient is awake, alert and oriented X3. . - Labs CBC & Chem 7: 05/17/19 05:46 05/17/19 22:57 Labs: Abnormal Lab Results - Last 24 Hours (Table) 05/18/19 Range/Units 06:01 PT 30.7 H (9.0-12.0) sec INR 3.2 H (<1.2) Microbiology - Last 24 Hours (Table) 05/14/19 10:42 Gram Stain - Final Sputum Sputum Culture - Final 05/13/19 17:20 Blood Culture - Preliminary Blood No Growth after 96 hours Assessment and Plan Plan: ASSESSMENT and plan #1Chronic persistent atrial fibrillation ,s/p ablation 12/2017. Currently on rhythmol #2Non-ischemic cardiomyopathy #3COPD #4Tracheobronchitis #5Hypertension #6Subtherapeutic INR Plan We will continue with current medications including the 3 times a day dose of Rythmol along with the Coreg, anticipating possible conversion to normal sinus rhythm once the lungs stabilize. Hold Coumadin today. DNP note has been reviewed, I agree with a documented findings and plan of care. Patient was seen and examined.
--- NOTE | 2019-05-18 13:36 | P.PN ---
Subjective Progress Note Date: 05/18/19 This is an 84-year-old male patient of Dr. Mosqueda with past medical history of paroxysmal atrial fibrillation status post cardiac ablation in 2007 as well as cardioversions a couple times since then, hypertension, osteoarthritis, obstructive sleep apnea but not currently on a CPAP, psoriasis, hard of hearing. Patient states that he has been under treatment with Dr. Mosqueda for pneumonia for the past 3 weeks. He completed a course of ciprofloxacin and was not better and then was given a prescription for prednisone. He states he completed his antibiotic and subsequently completed t he steroids yesterday. He states he has a continued cough with sputum production and makes it difficult to lay down. He has since then his time sitting in a chair due to the chronic cough. Patient came into [facility] emergency center for evaluation. CBC within normal limits, BUN 25, creatinine 0.7, blood sugar 106 lactic acid 1.3, ALT 117, INR 2.9, troponin 0.012. EKG sinus rhythm. Initial chest x-ray showed no acute pulmonary process. COPD. A repeat chest x-ray this morning reveals increasing right infrahilar opacities suspicious for unifocal pneumonia. Left basilar atelectasis is stable. Consult with Dr. Silva. 05/15: Patient went into A. fib RVR last evening and was started on Cardizem drip and moved to the cardiac stepdown unit. Patient has been seen by Dr. Talbot this morning and he has increased the Cardizem drip to 10 mg, continue Rythmol and continue Coumadin and increase Coreg to 37.5 mg twice daily. He remains in A. fib with RVR. INR today is 1.8. Patient denies any chest pain or shortness of breath. He states his cough has resolved. We will discontinue steroids as patient does note this will cause him to go into A. fib RVR. Heart rate is still 114-129, blood pressure 125/58, pulse ox 95% on room air, afebrile. Blood cultures no growth after 24 hours and sputum culture is in progress. 05/16: Patient is sitting up in chair in no apparent distress he did not sleep very well last night he denies any chest pain, less short of breath, he continues to be in atrial flutter ablation, he scheduled to go for cardioversion hopefully on Saturday. 05/17: Patient is sitting up in a chair in no apparent distress, he is feeling better today he denies any chest pain or any shortness breath, he is not going for any cardioversion this was discussed with cardiology at this point in time, we will continue with Coumadin we will continue with Cardizem drip, we'll try to switch the patient to oral medication so the patient can be discharged home in the next 24 hours. 05/18: Echocardiogram reveals EF of 50-55% with moderate concentric left ventricular hypertrophy, mild aortic regurgitation, mild mitral regurgitation, mild tricuspid regurgitation. Pulmonary medicine has signed off this case. Patient has been afebrile, heart rate 109-125, blood pressure 119/72, pulse ox 95% on room air. INR 3.2. Patient states that he had an awful night and he was coughing all through the night and can get the phlegm up. He denies any shortness of breath or chest pain. Cardiology is planning a possible cardioversion. Review of Systems Constitutional: Denies anorexia, Denies chills, Denies fatigue, Denies fever, Denies lethargy, Denies malaise, Denies poor appetite, Denies sweats, Denies weight loss Ears, nose, mouth and throat: Denies headache, Denies nasal congestion, Denies nasal discharge, Denies sore throat, Denies vertigo Cardiovascular: Denies chest pain, Denies decreased exercise tolerance, Denies dyspnea on exertion, Denies edema, Denies leg edema, Denies lightheadedness, Denies shortness of breath, Denies syncope Respiratory: Reports cough with sputum, Reports sleep apnea, Denies dyspnea, Denies excessive sputum, Denies hemoptysis, Denies home oxygen Gastrointestinal: Denies abdominal pain, Denies diarrhea, Denies loss of appetite, Denies nausea, Denies vomiting Genitourinary: Denies dysuria, Denies urinary retention Musculoskeletal: Denies frequent falls, Denies gait dysfunction, Denies muscle weakness, Denies myalgias Integumentary: Denies pruritus, Denies rash, Denies wounds Neurological: Denies change in mentation, Denies change in speech, Denies double vision, Denies numbness, Denies vertigo, Denies weakness Psychiatric: Denies anxiety, Denies depression Endocrine: Denies fatigue, Denies weight change Objective - Vital Signs Vital signs: Vital Signs Temp 98.0 F 05/18/19 04:00 Pulse 107 H 05/18/19 04:00 Resp 20 05/18/19 04:00 BP 112/69 05/18/19 04:00 Pulse Ox 96 05/18/19 04:00 Intake & Output 05/17/19 05/18/19 05/18/19 18:59 06:59 18:59 Intake Total 720 840 Output Total 675 Balance 720 -675 840 Weight 113 kg Intake: Oral 720 840 Output: Urine 675 Other: Voiding Method Toilet Toilet Urinal Urinal # Voids 1 - Exam Gen: This is an 84-year-old male. He is sitting up in a chair and appears to be comfortable and in no acute distress. No respiratory distress is noted. HEENT: Head is atraumatic, normocephalic. Pupils equal, round. Sclerae is anicteric. NECK: Supple. No JVD. No lymphadenopathy. No thyromegaly. LUNGS: Clear to auscultation. No wheezes or rhonchi. No intercostal retractions. HEART: Irregularly irregular rate and rhythm. No murmur. ABDOMEN: Soft. Bowel sounds are present. No masses. No tenderness. EXTREMITIES: No pedal edema. No calf tenderness. Dorsalis pedis +2 bilaterally. NEUROLOGICAL: Patient is awake, alert and oriented x3. Cranial nerves 2 through 12 are grossly intact. - Labs CBC & Chem 7: 05/17/19 05:46 05/17/19 22:57 Labs: Abnormal Lab Results - Last 24 Hours (Table) 05/18/19 Range/Units 06:01 PT 30.7 H (9.0-12.0) sec INR 3.2 H (<1.2) Microbiology - Last 24 Hours (Table) 05/13/19 17:20 Blood Culture - Preliminary Blood No Growth after 96 hours Assessment and Plan Plan: 1. Persistent cough with possible developing pneumonia ruled out. Antibiotics discontinued. Consult with Dr. Ricardo shay. Continue Atrovent 3 times daily, Pulmicort 1 mg twice daily, Robitussin, Teslakia Burnett. Poor medicine has signed off the case. 2. Paroxysmal atrial fibrillation, subsequently developed A. fib with RVR. Continue Rythmol which was increased to 225 mg 3 times daily, Coreg increased to 37.5 mg twice daily, Coumadin on home dosing. Cardiology is planning for possible cardioversion. 3. Obstructive sleep apnea. 4. Hypertension. Continue Coreg 5. Benign prostatic hypertrophy. 6. GI prophylaxis. Pepcid 7. DVT prophylaxis. Coumadin. Discharge plan: Home Impression and plan of care have been directed as dictated by the signing physician. Urmila Carey nurse practitioner acting as scribe for signing physician.
[2019-05-18] MEDS ORDERED: WARFARIN 5 MG TAB PO SCH (18:00)
[2019-05-18] MEDS ORDERED: WARFARIN 0.5 MG TAB PO ONE (18:00)
[2019-05-19] MEDS: TAMSULOSIN 0.4 MG CAP.ER.24H PO SCH (06:06)
[2019-05-19] MEDS: CARVEDILOL 12.5 MG TAB PO SCH (06:06)
[2019-05-19] MEDS: MULTIVITAMINS, THERA 1 EACH TAB PO SCH (06:07)
[2019-05-19 06:28] LABS: INR 2.6 (<1.2); Prothrombin Time 25.1 sec (9.0-12.0)
[2019-05-19] MEDS: BUDESONIDE 1 MG/2 ML NEBU INHALATION SCH (08:58)
[2019-05-19] MEDS: IPRATROPIUM 0.5 MG/2.5 ML NEBU INHALATION SCH (08:58)
[2019-05-19] MEDS: FAMOTIDINE 20 MG TAB PO SCH (09:15)
[2019-05-19] MEDS: PROPAFENONE 225 MG TAB PO SCH (09:15)
--- NOTE | 2019-05-19 11:11 | P.DS ---
Providers Date of admission: 05/14/19 15:28 Expected date of discharge: 05/19/19 Attending physician: Ra Ahumada Consults: 05/13/19 19:28 Consult Physician Routine Consulting Provider: Brittany Silva Consult Reason/Comments: Intractable cough Do you want consulting provider notified?: Yes 05/15/19 03:21 Consult Physician Routine Consulting Provider: Sarmad Dumont Consult Reason/Comments: flipped to afib rvr Do you want consulting provider notified?: Yes, Notify in am Primary care physician: Nehemiah Mosqueda [place] [facility] Course: This is an 84-year-old male patient of Dr. Mosqueda with past medical history of paroxysmal atrial fibrillation status post cardiac ablation in 2007 as well as cardioversions a couple times since then, hypertension, osteoarthritis, obstructive sleep apnea but not currently on a CPAP, psoriasis, hard of hearing. Patient states that he has been under treatment with Dr. Mosqueda for pneumonia for the past 3 weeks. He completed a course of ciprofloxacin and was not better and then was given a prescription for prednisone. He states he completed his antibiotic and subsequently completed the steroids yesterday. He states he has a continued cough with sputum production and makes it difficult to lay down. He has since then his time sitting in a chair due to the chronic cough. Patient came into [facility] emergency center for evaluation. CBC within normal limits, BUN 25, creatinine 0.7, blood sugar 106 lactic acid 1.3, ALT 117, INR 2.9, troponin 0.012. EKG sinus rhythm. Initial chest x-ray s howed no acute pulmonary process. COPD. A repeat chest x-ray this morning reveals increasing right infrahilar opacities suspicious for unifocal pneumonia. Left basilar atelectasis is stable. Consult with Dr. Silva. 05/15: Patient went into A. fib RVR last evening and was started on Cardizem drip and moved to the cardiac stepdown unit. Patient has been seen by Dr. Talbot this morning and he has increased the Cardizem drip to 10 mg, continue Rythmol and continue Coumadin and increase Coreg to 37.5 mg twice daily. He remains in A. fib with RVR. INR today is 1.8. Patient denies any chest pain or shortness of breath. He states his cough has resolved. We will discontinue steroids as patient does note this will cause him to go into A. fib RVR. Heart rate is still 114-129, blood pressure 125/58, pulse ox 95% on room air, afebrile. Blood cultures no growth after 24 hours and sputum culture is in progress. 05/16: Patient is sitting up in chair in no apparent distress he did not sleep very well last night he denies any chest pain, less short of breath, he continues to be in atrial flutter ablation, he scheduled to go for cardioversion hopefully on Saturday. 05/17: Patient is sitting up in a chair in no apparent distress, he is feeling better today he denies any chest pain or any shortness breath, he is not going for any cardioversion this was discussed with cardiology at this point in time, we will continue with Coumadin we will continue with Cardizem drip, we'll try to switch the patient to oral medication so the patient can be discharged home in the next 24 hours. 05/18: Echocardiogram reveals EF of 50-55% with moderate concentric left ventricular hypertrophy, mild aortic regurgitation, mild mitral regurgitation, mild tricuspid regurgitation. Pulmonary medicine has signed off this case. Patient has been afebrile, heart rate 109-125, blood pressure 119/72, pulse ox 95% on room air. INR 3.2. Patient states that he had an awful night and he was coughing all through the night and can get the phlegm up. He denies any shortness of breath or chest pain. Cardiology is planning a possible cardioversion. 05/19: Patient states that he is feeling better again today. Breathing is stable and cough is improved. INR is 2.6. His heart rate is running between 100-109. monitor technician is atrial fibrillation. Blood pressure 126/76, pulse ox 97% on room air. Cardiology is not planning on cardioversion. Patient is been cleared by cardiology for discharge home. Patient will be discharged home today in stable condition. Discharge diagnoses: 1. Persistent cough without pneumonia. 2. Paroxysmal atrial fibrillation, subsequently developed A. fib with RVR. 3. Obstructive sleep apnea. 4. Hypertension. 5. Benign prostatic hypertrophy. Discharge plan: Home Impression and plan of care have been directed as dictated by the signing physician. Urmila Carey nurse practitioner acting as scribe for signing physician. Patient Condition at Discharge: Good Plan - Discharge Summary Discharge Rx Participant: Yes New Discharge Prescriptions: New Benzonatate [Tessalon Perles] 200 mg PO TID PRN #21 cap PRN Reason: Cough Levalbuterol Hfa Inhaler [Xopenex Hfa Inhaler] 2 puff INHALATION Q6HR PRN #1 inhaler PRN Reason: Wheezing Carvedilol [Coreg*] 37.5 mg PO BID@0500,1700 #90 tab guaiFENesin SYRUP 100MG/5ML [Robitussin] 200 mg PO Q6H PRN cup PRN Reason: Cough Continue Tamsulosin HCl [Flomax] 0.4 mg PO BID@0700,2100 Multivitamins, Thera [Multivitamin (formulary)] 1 tab PO DAILY@0700 Warfarin [Coumadin] 5 mg PO MO@1700 Warfarin [Coumadin] 7.5 mg PO SUTUWETHFRSA@1700 Changed Propafenone Sr [Rythmol Sr] 225 mg PO TID #90 cap Discontinued Carvedilol [Coreg] 25 mg PO BID@0500,1700 Diltiazem Oral [Cardizem*] 30 mg PO TID@0700,1400,2100 predniSONE See Taper PO DAILY Discharge Medication List Tamsulosin HCl [Flomax] 0.4 mg PO BID@0700,2100 07/12/14 [History] Multivitamins, Thera [Multivitamin (formulary)] 1 tab PO DAILY@0700 07/05/17 [History] Warfarin [Coumadin] 5 mg PO MO@1700 07/20/17 [History] Warfarin [Coumadin] 7.5 mg PO SUTUWETHFRSA@1700 12/09/17 [History] Benzonatate [Tessalon Perles] 200 mg PO TID PRN #21 cap 05/14/19 [Rx] Levalbuterol Hfa Inhaler [Xopenex Hfa Inhaler] 2 puff INHALATION Q6HR PRN #1 inhaler 05/14/19 [Rx] Carvedilol [Coreg*] 37.5 mg PO BID@0500,1700 #90 tab 05/19/19 [Rx] Propafenone Sr [Rythmol Sr] 225 mg PO TID #90 cap 05/19/19 [Rx] guaiFENesin SYRUP 100MG/5ML [Robitussin] 200 mg PO Q6H PRN cup 05/19/19 [Rx] Follow up Appointment(s)/Referral(s): Nehemiah Mosqueda DO [Primary Care Provider] - 1 Week (office will call with appointment time) Tiago Martinez MD [STAFF PHYSICIAN] - 06/02/19 4:00 pm (Saturday) Brittany Silva MD [STAFF PHYSICIAN] - 05/28/19 3:00 pm (please Come in 15 minutes early) Discharge Disposition: HOME SELF-CARE
[2019-05-19 11:14] VITALS: BP 112/68; PULSE 102; RESP 16; TEMP 97.8
--- NOTE | 2019-05-19 12:13 | P.PN ---
Subjective Progress Note Date: 05/19/19 05/18/2019 This is a pleasant 84-year-old male past medical history significant for chronic persistent atrial fibrillation status post cardioversion in the past and subsequent ablations most recently in 2018 he underwent cryoablation of pulmonary veins, COPD and hypertension. Shortly after his ablation he had an episode of a-fib and was placed on rhythmol. He was admitted to the hospital on this occasion with tracheobronchitis, he continues at this time to be in atrial fibrillation. This morning his heart rate is around 200. He is on the Rythmol 3 times a day Coreg. INR this morning 3.2. Blood pressure 120/70, 95% on room air. Continues to complain of productive cough this morning. 05/19/2019 Patient seen and examined this morning, continues to be in atrial fibrillation, heart rate 98 this morning. Blood pressure 112/60 with a heart rate in the 90s. Pro time today's 25.1 with an INR of 2.6. Objective - Vital Signs Vital signs: Vital Signs Temp 97.8 F 05/19/19 08:00 Pulse 111 H 05/19/19 09:15 Resp 16 05/19/19 08:00 BP 112/68 05/19/19 08:00 Pulse Ox 97 05/19/19 04:00 Intake & Output 05/18/19 05/19/19 05/19/19 18:59 06:59 18:59 Intake Total 1320 240 Balance 1320 240 Weight 113.5 kg Intake: Oral 1320 240 Other: Voiding Method Toilet Toilet Urinal Urinal # Voids 2 1 - Exam PHYSICAL EXAMINATION: GENERAL: 84-year-old gentleman in no acute distress at the time of my examination HEENT: Head is atraumatic, normocephalic. Pupils equal, round. Sclera anicteric. Conjunctiva are clear. Mucous membranes of the mouth are moist. Neck is supple. There is no elevated jugular venous pressure. No carotid bruit is heard. HEART EXAMINATION: Heart S1 and S2 irregularly irregular a systolic ejection murmur is heard CHEST EXAMINATION: Lungs reveal scattered coarse rhonchi throughout. ABDOMEN: Soft, nontender. Bowel sounds are heard. No organomegaly noted. EXTREMITIES: 2+ peripheral pulses with no evidence of peripheral edema and no calf tenderness noted. NEUROLOGIC patient is awake, alert and oriented X3. . - Labs CBC & Chem 7: 05/17/19 05:46 05/17/19 22:57 Labs: Abnormal Lab Results - Last 24 Hours (Table) 05/19/19 Range/Units 05:58 PT 25.1 H (9.0-12.0) sec INR 2.6 H (<1.2) Microbiology - Last 24 Hours (Table) 05/13/19 17:20 Blood Culture - Preliminary Blood No Growth after 120 hours 05/14/19 10:42 Gram Stain - Final Sputum Sputum Culture - Final Assessment and Plan Plan: ASSESSMENT and plan #1Chronic persistent atrial fibrillation ,s/p ablation 12/2017. Currently on rhythmol #2Non-ischemic cardiomyopathy #3COPD #4Tracheobronchitis #5Hypertension #6Subtherapeutic INR Plan We will continue with current medications including the 3 times a day dose of Rythmol along with the Coreg, anticipating possible conversion to normal sinus rhythm once the lungs stabilize as an outpatient. He may be discharged home from our perspective. DNP note has been reviewed, I agree with a documented findings and plan of care. Patient was seen and examined.
[2019-05-19] MEDS ORDERED: WARFARIN 7.5 MG TAB PO ONE (18:00)
--- NOTE | 2019-05-26 07:00 | CDI ---
Documentation Clarification Form Date: 05/26/2019 6:47:09 AM From: Anitha Prieto Phone: If you have a question about this query, please contact Yvonne Hatfield Sheep Herder at [phone] between 8am and 5pm Admit Date: 05/14/2019 3:28:00 PM Patient Name: Colin Irizarry Visit Number: [id number] Discharge Date: 05/19/2019 1:18:00 PM ATTENTION: The Clinical Documentation Specialists (CDI) and [facility] Coding Staff appreciate your assistance in clarifying documentation. Please respond to the clarification below the line at the bottom and electronically sign. The CDI & [facility] Coding staff will review the response and follow-up if needed. Please note: Queries are made part of the Legal Health Record. If you have any questions, please contact the author of this message via ITS. Dr. Brigitte Stephen The patient presented with SOB wheezing and cough. Pneumonia was ruled out. PN 05/15 documents patient with acute tracheobronchitis with acute bronchospasm. Diagnosis not carried to DCS Please clarify if patient had acute tracheobronchitis or was this ruled out. He/She presented with the following wheezing and coughing. History/Risk factors: COPD hx of smoking, KATHLEEN, atrial fib and flutter: Radiology findings: pneumonia Vital Signs:98.3F, 66 bpm, 20 157/74, 96% RA Other Clinical Indicators: cough Treatment: Rochephin and Zithromycin Consults: pulmonary, cardiology In your professional opinion, can you please clarify if patient had acute tracheobronchitis or was acute tracheobronchitis ruled out. Acute Tracheobronchitis Acute Tracheobronchitis ruled out Acute tracheobronchitis MTDD
== END 2019-05-19 13:18 | disposition home or self-care (01) | DRG 202 ==
LOC: EC 15:24 → 4SSUR 19:28 → OBSVTOIN 05-14 15:28 → 3SCARD 05-15 03:38
PROVIDERS: ADMIT Internal Medicine Geriatric Medicine; ATTEND Internal Medicine Geriatric Medicine
DX: J20.9 Acute bronchitis, unspecified (principal); J44.0 Chronic obstructive pulmonary disease with (acute) lower respiratory infection; J98.11 Atelectasis; I42.8 Other cardiomyopathies; I48.19 Other persistent atrial fibrillation; L40.9 Psoriasis, unspecified; M19.90 Unspecified osteoarthritis, unspecified site; N40.1 Benign prostatic hyperplasia with lower urinary tract symptoms; R35.0 Frequency of micturition; G47.33 Obstructive sleep apnea (adult) (pediatric); H91.90 Unspecified hearing loss, unspecified ear; I10 Essential (primary) hypertension; R79.1 Abnormal coagulation profile; Z79.01 Long term (current) use of anticoagulants; Z79.899 Other long term (current) drug therapy; Z80.1 Family history of malignant neoplasm of trachea, bronchus and lung; Z80.51 Family history of malignant neoplasm of kidney; Z82.0 Family history of epilepsy and other diseases of the nervous system; Z87.442 Personal history of urinary calculi; Z87.01 Personal history of pneumonia (recurrent); Z88.5 Allergy status to narcotic agent; Z88.0 Allergy status to penicillin; Z88.7 Allergy status to serum and vaccine; Z88.8 Allergy status to other drugs, medicaments and biological substances; Z96.653 Presence of artificial knee joint, bilateral; Z96.643 Presence of artificial hip joint, bilateral; Z89.022 Acquired absence of left finger(s); Z80.42 Family history of malignant neoplasm of prostate; Z82.49 Family history of ischemic heart disease and other diseases of the circulatory system; R91.8 Other nonspecific abnormal finding of lung field; Z87.891 Personal history of nicotine dependence; K21.9 Gastro-esophageal reflux disease without esophagitis
CPT/HCPCS: 36415; 71046; 80053; 83605; 83735; 84132; 84484; 85025; 85610; 85730; 87040; 87070; 87205; 87502; 90686; 93005; 93306; 94640; 94760; 96365; 96366; 96367; 99285

== ENCOUNTER 2019-06-05 10:39 | Day surgery (SDC) | payer MEDICARE ==
[2019-06-01 14:50] VITALS: BMI 33.6
[~2019-06-05 10:39] MED LIST: ALBUTEROL NEB (CONC) 2.5 MG/0.5 ML INHALATION ONE; LACTATED RINGERS 1,000 ML IV SCH; LIDOCAINE 2% (PF) 20 MG/ML 5 ML VIAL INHALATION ONE; LIDOCAINE VISCOUS 300 MG/15 ML CUP MUCOUS MEM ONE; SODIUM CHLORIDE 0.9% 1,000 ML IV SCH
[2019-06-05] MEDS ORDERED: LACTATED RINGERS 1,000 ML IV ONE (10:58)
[2019-06-05 10:59] VITALS: TEMP 97.8
[2019-06-05] MEDS ORDERED: LIDOCAINE 1% INJ 10MG/ML (20 ML MDV) ONE (11:56)
[2019-06-05] MEDS ORDERED: fentaNYL (PF) 50 MCG/ML 2 ML AMP ONE (11:56)
[2019-06-05] MEDS ORDERED: PROPOFOL 10 MG/ML 20 ML VIAL IV ONE (11:56)
[2019-06-05] MEDS ORDERED: LIDOCAINE 2% INJ 20 MG/ML INTRATRACH ONE (12:29)
--- NOTE | 2019-06-05 13:21 | P.PCN ---
Date of Procedure: 06/05/19 Preoperative Diagnosis: Persistent cough and chest congestion Postoperative Diagnosis: Abnormalities consistent with bronchitis involving the lingular segment Procedure(s) Performed: Flexible bronchoscopy and the bronchioloalveolar lavage of the lingular segments Anesthesia: MAC Surgeon: Brittany Silva Estimated Blood Loss (ml): 0 Pathology: other Condition: stable Disposition: same day Operative Findings: This procedure was done in the endoscopy suite. A timeout was obtained. A consent was signed. Anesthesia was available to offer this patient sedation. After achieving adequate sedation, the flexible bronchoscope was inserted through the right nostril was advanced into the upper airway. Examination of the posterior oropharynx, larynx, epiglottis, arytenoids and the vocal cords with all within normal limits. A total of 2 mL of 1% lidocaine was applied to the vocal cords and following that the bronchoscope was advanced into the upper trachea. A total of 2 mL of 1% lidocaine was applied and the trachea. It was obvious that the patient had a severe degree of bronchomalacia with dynamic obstruction of the tracheal wall with exhalation and cough and. The membranous trachea was very much dynamic. Airway inspection was done. There was some retained secretions within the second was suctioned out. Airway inspection was completed and bilateral mainstem bronchi was visualized and then the bronchoscope was moved to the right side where the right upper lobe bronchus, bronchus intermedius, right middle lobe bronchus and right lower lobe bronchus along with various segments and subsegments were all visualized and they're all showing some component of bronchomalacia with some limited distally secretions. The airways are otherwise patent and the various segments of all inspected. The bronchoscope was then moved to the left side and the left mainstem bronchus was patent. There was some bronchomalacia involving left main stem bronchus and the various segments of the left upper lobe and the left lower lobe. Inflammatory changes were seen mainly in the lingular segment of the left upper lobe segments. Apicoposterior and anterior and the lingual segment including the superior and inferior segments were all noted. The bronchioloalveolar lavage of the lingular segment was done with a total of 80 mL of fluid was infused in 15- 20 mL was suctioned back. Examination of left lower lobe was within normal limits. At the termination of the procedure, therapeutic airway suctioning was done and the bronchoscope was removed and the procedure was completed without any complications. The samples will be sent for microbial cultures and the patient will see me back in the office to discuss the results.
[2019-06-05 13:23] VITALS: BP 127/67; PULSE 95; RESP 18
== END 2019-06-05 14:24 | disposition home or self-care (01) ==
LOC: ORWHC2ENDO 10:39
PROVIDERS: ATTEND Internal Medicine Critical Care Medicine
DX: J20.6 Acute bronchitis due to rhinovirus (principal); J98.09 Other diseases of bronchus, not elsewhere classified; J44.9 Chronic obstructive pulmonary disease, unspecified; J45.20 Mild intermittent asthma, uncomplicated; I48.0 Paroxysmal atrial fibrillation; I10 Essential (primary) hypertension; N40.0 Benign prostatic hyperplasia without lower urinary tract symptoms; M19.90 Unspecified osteoarthritis, unspecified site; K21.9 Gastro-esophageal reflux disease without esophagitis; G47.33 Obstructive sleep apnea (adult) (pediatric); E66.9 Obesity, unspecified; L40.9 Psoriasis, unspecified; Z88.0 Allergy status to penicillin; Z88.5 Allergy status to narcotic agent; Z87.891 Personal history of nicotine dependence; Z87.01 Personal history of pneumonia (recurrent); Z87.442 Personal history of urinary calculi; Z79.899 Other long term (current) drug therapy; Z79.01 Long term (current) use of anticoagulants; Z79.02 Long term (current) use of antithrombotics/antiplatelets; Z98.890 Other specified postprocedural states; Z68.33 Body mass index [BMI] 33.0-33.9, adult; Z88.7 Allergy status to serum and vaccine; Z88.8 Allergy status to other drugs, medicaments and biological substances; Z80.1 Family history of malignant neoplasm of trachea, bronchus and lung; Z80.42 Family history of malignant neoplasm of prostate
CPT/HCPCS: 94640; 87798 ×3; 87496; 87498; 87529; 87252; 87502; 87634; 87070; 87205; 87116; 87102; 87206; 31645; 31624; J2001 ×3; J3010; J2704

== ENCOUNTER → 2019-06-09 | Outpatient (CLI) | payer MEDICARE ==
[2019-06-09 12:33] LABS: Prothrombin Time 113.6 sec (9.0-12.0)
[2019-06-09 12:38] LABS: INR >10.0 (<1.2)
[2019-06-09 12:49] LABS: HCT 41.9 % (39.0-53.0); HGB 13.7 gm/dL (13.0-17.5); MCH 32.8 pg (25.0-35.0); MCHC 32.7 g/dL (31.0-37.0); MCV 100.1 fL (80.0-100.0); Macrocytosis Slight; Mean Platelet Volume 6.9; Platelet Count 125 k/uL (150-450); RBC 4.18 m/uL (4.30-5.90); RDW 14.6 % (11.5-15.5); WBC 6.4 k/uL (3.8-10.6)
[2019-06-09 22:05] LABS: African American GFR (CKD) 80.9 (60.0-200.0); Albumin/Globulin Ratio 2.22 (1.60-3.17); Anion Gap 8.7 mmol/L (4.00-12.00); Calcium 9.2 mg/dL (8.7-10.3); Carbon Dioxide 29.3 mmol/L (21.6-31.8); Globulin 1.8 g/dL (1.6-3.3); Non-African American GFR(CKD) 69.8 (60.0-200.0); Potassium 4.8 mmol/L (3.5-5.5); Total Bilirubin 0.8 mg/dL (0.2-1.2); Total Protein 5.8 g/dL (6.2-8.2)
== END | disposition home or self-care (01) ==
LOC: LABWHC1 10:48
PROVIDERS: ATTEND Internal Medicine Cardiovascular Disease
DX: I48.91 Unspecified atrial fibrillation (principal); J18.9 Pneumonia, unspecified organism
CPT/HCPCS: 36415; 80053; 82164; 85027; 85610

== ENCOUNTER → 2019-06-19 | Outpatient (CLI) | payer MEDICARE ==
[2019-06-19 18:31] LABS: African American GFR (CKD) 91.9 (60.0-200.0); Anion Gap 8.9 mmol/L (4.00-12.00); BUN/Creat Ratio 24.44 Ratio (12.00-20.00); Calcium 9.1 mg/dL (8.7-10.3); Carbon Dioxide 29.1 mmol/L (21.6-31.8); Non-African American GFR(CKD) 79.3 (60.0-200.0); Potassium 4.1 mmol/L (3.5-5.5)
== END | disposition home or self-care (01) ==
LOC: LABWHC1 09:26
PROVIDERS: ATTEND Internal Medicine Cardiovascular Disease
DX: I50.9 Heart failure, unspecified (principal)
CPT/HCPCS: 36415; 80048

== ENCOUNTER → 2019-06-23 | Outpatient (CLI) | payer MEDICARE ==
[2019-06-23 16:40] LABS: African American GFR (CKD) >90 (>60 ml/min/1.73 sqM); Blood Urea Nitrogen 25 mg/dL (9-20); Non-African American GFR(CKD) 84 (>60 ml/min/1.73 sqM)
--- NOTE | 2019-06-24 07:16 | CT ---
EXAMINATION TYPE: CT chest w con DATE OF EXAM: 06/23/2019 COMPARISON: Chest CT July 16, 2013. Most recent chest x-ray May 20, 2019 HISTORY: cough, recent pneumonia CT DLP: 613.5 mGycm. Automated Exposure Control for Dose Reduction was Utilized. TECHNIQUE: CT scan of the thorax is performed following with IV Contrast, patient injected with 100 mL of Isovue 300. FINDINGS: LUNGS: There is patchy bibasilar linear scarring and/or atelectasis redemonstrated. Few scattered jamaal ronodules are present for reference is 3 mm posterior lateral right upper lung nodule axial image [address] There is stable 6 x 4 mm left basilar nodule axial image 40 redemonstrated. N o new greater than 5 mm pulmonary nodules or masses. No suspicious focal consolidation. No pleural ef fusion or pneumothorax. MEDIASTINUM: There are no greater than 1 cm hilar or mediastinal lymph nodes. No pericardial effusi on is seen. Cardiomegaly redemonstrated. Coronary artery calcification seen which is noted marked un derlying coronary artery disease. Ascending aortic aneurysm up to 4.7 cm image 27 not significantly c hanged from prior. OTHER: Persistent large rim calcified 2.5 cm gallstone. Cortical thinning left kidney. 2 simple appea ring thin-walled cyst in both kidneys. Moderate to severe fat replaced atrophy of pancreas that has l evel IMPRESSION: 1. Persistent cardiomegaly with bibasilar linear scarring and/or atelectasis. No suspicious acute foc al infiltrate currently. 2. Stable 4.7 cm ascending thoracic aortic aneurysm.
== END | disposition home or self-care (01) ==
LOC: RADCTMAIN 15:56
PROVIDERS: ATTEND Internal Medicine Critical Care Medicine
DX: I71.2 Thoracic aortic aneurysm, without rupture (principal); J18.1 Lobar pneumonia, unspecified organism; Z88.0 Allergy status to penicillin
CPT/HCPCS: 82565; 84520; 71260; 36415; Q9967

== ENCOUNTER → 2019-08-13 | Outpatient (CLI) | payer MEDICARE ==
[2019-08-13 23:17] LABS: African American GFR (CKD) 37.2 (60.0-200.0); Anion Gap 13.5 mmol/L (4.00-12.00); BUN/Creat Ratio 55.26 Ratio (12.00-20.00); Calcium 9.2 mg/dL (8.7-10.3); Carbon Dioxide 29.5 mmol/L (21.6-31.8); Non-African American GFR(CKD) 32.1 (60.0-200.0); Potassium 3.3 mmol/L (3.5-5.5)
== END | disposition home or self-care (01) ==
LOC: LABWHC1 16:07
PROVIDERS: ATTEND Internal Medicine Cardiovascular Disease
DX: I50.9 Heart failure, unspecified (principal)
CPT/HCPCS: 36415; 80048

== ENCOUNTER 2019-08-14 10:48 | Inpatient (IN) | payer MEDICARE ==
[2019-08-14] MEDS ORDERED: SODIUM CHLORIDE 0.9% 500 ML 500 ML IV STA (11:26)
[2019-08-14] MEDS ORDERED: MIDODRINE 5 MG TAB PO STA (11:27)
--- NOTE | 2019-08-14 11:35 | ED ---
General Adult HPI - General Chief complaint: Recheck/Abnormal Lab/Rx Stated complaint: lab recheck/low bp Time Seen by Provider: 08/14/19 11:00 Source: patient, RN notes reviewed, old records reviewed Mode of arrival: ambulatory Limitations: no limitations - History of Present Illness Initial comments: This is an 84-year-old male with past medical history significant for congestive heart failure as well as A. fib with rapid ventricular response. 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 Patient doesn't know what the blood work said he was told to come in. Patient states he feels very weak but is not having any chest pain or shortness of breath per patient denies feeling any palpitations even though his heart rates 160 beats a minute patient denies lightheadedness or dizziness. Constantin marie denies abdominal pain patient denies nausea vomiting diarrhea. Patient denies any recent fever chills or cough. - Related Data Home Medications Medication Instructions Recorded Confirmed Tamsulosin HCl [Flomax] 0.4 mg PO BID@0700,2100 07/12/14 06/01/19 Multivitamins, Thera [Multivitamin 1 tab PO DAILY@0700 07/05/17 06/01/19 (formulary)] Warfarin [Coumadin] 5 mg PO MO@1700 07/20/17 06/01/19 Warfarin [Coumadin] 7.5 mg PO SUTUWETHFRSA@1700 12/09/17 06/01/19 Furosemide [Lasix] 20 mg PO DAILY 06/01/19 06/01/19 Previous Rx's Medication Instructions Recorded Benzonatate [Tessalon Perles] 200 mg PO TID PRN #21 cap 05/14/19 Levalbuterol Hfa Inhaler [Xopenex 2 puff INHALATION Q6HR PRN #1 05/14/19 Hfa Inhaler] inhaler Carvedilol [Coreg*] 37.5 mg PO BID@0500,1700 #90 tab 05/19/19 Propafenone Sr [Rythmol Sr] 225 mg PO TID #90 cap 05/19/19 guaiFENesin SYRUP 100MG/5ML 200 mg PO Q6H PRN cup 05/19/19 [Robitussin] Allergies Allergy/AdvReac Type Severity Reaction Status Date / Time isosorbide mononitrate Allergy Unknown Verified 08/14/19 11:01 [From Imdur] Penicillins Allergy Rash/Hives Verified 08/14/19 11:01 albuterol [From Ventolin HFA] AdvReac Rapid Verified 08/14/19 11:01 Heart Rate amiodarone HCl AdvReac LUNGS/EYE Verified 08/14/19 11:01 [From Cordarone] PROBLEMS codeine AdvReac Nausea & Verified 08/14/19 11:01 Vomiting enalapril maleate AdvReac Cough Verified 08/14/19 11:01 [From Vasotec] enalaprilat dihydrate AdvReac Cough Verified 08/14/19 11:01 [From Vasotec] hydromorphone HCl AdvReac Nausea & Verified 08/14/19 11:01 [From Dilaudid] Vomiting loratadine [From Claritin] AdvReac Rapid Verified 08/14/19 11:01 Heart Rate morphine AdvReac Nausea & Verified 08/14/19 11:01 Vomiting procainamide HCl AdvReac "FLUID ON Verified 08/14/19 11:01 [From Pronestyl] HEART" tetanus toxoid, adsorbed AdvReac "JOINT Verified 08/14/19 11:01 STIFFNESS" Review of Systems ROS Statement: Those systems with pertinent positive or pertinent negative responses have been documented in the HPI. ROS Other: All systems not noted in ROS Statement are negative. Past Medical History Past Medical History: Atrial Fibrillation, Heart Failure Additional Past Medical History / Comment(s): Pt recently had an influenza and was on an antibiotic, recently told he has a "spot" on his R lung-not worked up yet, Afib with RVR in past, no CPAP necessary, kidney stones, psoriasis, reactive airway, urinary frequency. History of Any Multi-Drug Resistant Organisms: None Reported Past Surgical History: Cardiac Ablation, Joint Replacement, Orthopedic Surgery Additional Past Surgical History / Comment(s): cardiac ablation X2, kidney surgery 1955, iron knee, iron hip, Cardioversionx4 chip right shoulder, loss finger on left hand Past Anesthesia/Blood Transfusion Reactions: No Reported Reaction Past Psychological History: No Psychological Hx Reported Smoking Status: Current some day smoker Past Alcohol Use History: None Reported Past Drug Use History: None Reported - Past Family History Mother Family Medical History: Cancer Additional Family Medical History / Comment(s): Mother at age 82 of lung cancer. Father Family Medical History: Cancer Additional Family Medical History / Comment(s): Father at age 80 of prostrate cancer. Brother(s) Family Medical History: Cancer Additional Family Medical History / Comment(s): Patient has a total of 6 brothers. One brother with history of atrial fibrillation and kidney cancer, second brother with valvular heart disease, third brother with Parkinson's. Daughter(s) Additional Family Medical History / Comment(s): Patient has 3 children and one daughter from complications from obesity. Other 2 children have no major medical problems. General Exam - General Exam Comments Initial Comments: GENERAL: Patient is well-developed and well-nourished. Patient is nontoxic and well- hydrated and is in no acute distress. ENT: Neck is soft and supple. No significant lymphadenopathy is noted. Oropharynx is clear. Moist mucous membranes. Neck has full range of motion without eliciting any pain. EYES: The sclera were anicteric and conjunctiva were pink and moist. Extraocular movements were intact and pupils were equal round and reactive to light. Eyelids were unremarkable. PULMONARY: Unlabored respirations. Good breath sounds bilaterally. No audible rales rhonchi or wheezing was noted. CARDIOVASCULAR: Patient's heart rate 160 beats a minute and it is irregular ABDOMEN: Soft and nontender with normal bowel sounds. SKIN: Skin is clear with no lesions or rashes and otherwise unremarkable. NEUROLOGIC: Patient is alert and oriented x3. Cranial nerves II through XII are grossly intact. Motor and sensory are also intact. Normal speech, volume and content. Symmetrical smile. MUSCULOSKELETAL: Normal extremities with adequate strength and full range of motion. Both legs are wrapped LYMPHATICS: No significant lymphadenopathy is noted PSYCHIATRIC: Normal psychiatric evaluation. Limitations: no limitations Course Vital Signs 08/14/19 08/14/19 08/14/19 10:54 11:00 12:00 Temperature 97.5 F L Pulse Rate 67 140 H 114 H Respiratory 18 20 20 Rate Blood Pressure 86/45 100/81 99/72 O2 Sat by Pulse 96 96 Oximetry 08/14/19 13:01 Temperature Pulse Rate 126 H Respiratory 20 Rate Blood Pressure 105/87 O2 Sat by Pulse 96 Oximetry Medical Decision Making - Medical Decision Making EKG shows atrial fibrillation with rapid ventricular response at 158 bpm QRS 124 QT interval 34 QTC is 492. Patient's EKG shows no ST segment elevation or depression. I spoke with Dr. Talbot about the patient's heart rate at 116 tender blood pressure. He wanted me to slowly push Cardizem 5 mg at a time and place the patient on slow drip. I had the nurse push 5 mg of Cardizem 2 slowly blood pressure stayed s ystolically right around 100. I then placed the patient on a Cardizem drip at 510 hours. Patient's heart rate was slowly responding. Chest x-ray showed no acute abnormality. I spoke with Dr. Stephen he agreed to admit the patient admitted the patient wrote admitting orders. Consult cardiology. - Lab Data Result diagrams: 08/14/19 11:20 08/14/19 11:20 Lab Results 08/14/19 08/14/19 08/14/19 Range/Units 11:20 11:20 11:20 WBC 8.0 (3.8-10.6) k/uL RBC 3.69 L (4.30-5.90) m/uL Hgb 12.8 L (13.0-17.5) gm/dL Hct 37.5 L (39.0-53.0) % MCV 101.6 H (80.0-100.0) fL MCH 34.7 (25.0-35.0) pg MCHC 34.1 (31.0-37.0) g/dL RDW 15.7 H (11.5-15.5) % Plt Count 250 (150-450) k/uL Neutrophils % 81 % Lymphocytes % 12 % Monocytes % 5 % Eosinophils % 1 % Basophils % 1 % Neutrophils # 6.4 (1.3-7.7) k/uL Lymphocytes # 1.0 (1.0-4.8) k/uL Monocytes # 0.4 (0-1.0) k/uL Eosinophils # 0.1 (0-0.7) k/uL Basophils # 0.1 (0-0.2) k/uL Macrocytosis Slight PT 11.1 (9.0-12.0) sec INR 1.1 (<1.2) APTT 24.2 (22.0-30.0) sec Sodium 134 L (137-145) mmol/L Potassium 3.3 L (3.5-5.1) mmol/L Chloride 94 L (98-107) mmol/L Carbon Dioxide 31 H (22-30) mmol/L Anion Gap 9 mmol/L BUN 112 H* (9-20) mg/dL Creatinine 1.69 H (0.66-1.25) mg/dL Est GFR (CKD-EPI)AfAm 43 (>60 ml/min/1.73 sqM) Est GFR (CKD-EPI)NonAf 37 (>60 ml/min/1.73 sqM) Glucose 115 H (74-99) mg/dL Calcium 9.1 (8.4-10.2) mg/dL Magnesium 2.9 H (1.6-2.3) mg/dL Total Bilirubin 0.7 (0.2-1.3) mg/dL AST 41 (17-59) U/L ALT 36 (4-49) U/L Alkaline Phosphatase 62 (38-126) U/L Troponin I (0.000-0.034) ng/mL Total Protein 6.9 (6.3-8.2) g/dL Albumin 3.9 (3.5-5.0) g/dL 08/14/19 Range/Units 11:20 WBC (3.8-10.6) k/uL RBC (4.30-5.90) m/uL Hgb (13.0-17.5) gm/dL Hct (39.0-53.0) % MCV (80.0-100.0) fL MCH (25.0-35.0) pg MCHC (31.0-37.0) g/dL RDW (11.5-15.5) % Plt Count (150-450) k/uL Neutrophils % % Lymphocytes % % Monocytes % % Eosinophils % % Basophils % % Neutrophils # (1.3-7.7) k/uL Lymphocytes # (1.0-4.8) k/uL Monocytes # (0-1.0) k/uL Eosinophils # (0-0.7) k/uL Basophils # (0-0.2) k/uL Macrocytosis PT (9.0-12.0) sec INR (<1.2) APTT (22.0-30.0) sec Sodium (137-145) mmol/L Potassium (3.5-5.1) mmol/L Chloride (98-107) mmol/L Carbon Dioxide (22-30) mmol/L Anion Gap mmol/L BUN (9-20) mg/dL Creatinine (0.66-1.25) mg/dL Est GFR (CKD-EPI)AfAm (>60 ml/min/1.73 sqM) Est GFR (CKD-EPI)NonAf (>60 ml/min/1.73 sqM) Glucose (74-99) mg/dL Calcium (8.4-10.2) mg/dL Magnesium (1.6-2.3) mg/dL Total Bilirubin (0.2-1.3) mg/dL AST (17-59) U/L ALT (4-49) U/L Alkaline Phosphatase (38-126) U/L Troponin I <0.012 (0.000-0.034) ng/mL Total Protein (6.3-8.2) g/dL Albumin (3.5-5.0) g/dL Critical Care Time Critical Care Time: Yes Total Critical Care Time: 35 Disposition Clinical Impression: Atrial fibrillation with rapid ventricular response Disposition: ADMITTED IP TO THIS HOSP Referrals: Nehemiah Mosqueda DO [Primary Care Provider] - 1-2 days Time of Disposition: 13:25
[2019-08-14] MEDS ORDERED: SODIUM CHLORIDE 0.9% 500 ML 500 ML IV ONE (11:37)
[2019-08-14 11:50] LABS: Basophils # (A) 0.1 k/uL (0-0.2); Basophils % (A) 1 %; Eosinophils # (A) 0.1 k/uL (0-0.7); Eosinophils % (A) 1 %; HCT 37.5 % (39.0-53.0); HGB 12.8 gm/dL (13.0-17.5); Lymphocytes % (A) 12 %; MCH 34.7 pg (25.0-35.0); MCHC 34.1 g/dL (31.0-37.0); MCV 101.6 fL (80.0-100.0); Macrocytosis Slight; Mean Platelet Volume 7.7; Monocytes # (A) 0.4 k/uL (0-1.0); Monocytes % (A) 5 %; Neutrophils # (A) 6.4 k/uL (1.3-7.7); Neutrophils % (A) 81 %; Platelet Count 250 k/uL (150-450); RBC 3.69 m/uL (4.30-5.90); RDW 15.7 % (11.5-15.5)
[2019-08-14] MEDS ORDERED: DILTIAZEM DRIP BOLUS FROM BAG 1 MG SOLN IV ONE (11:53)
[2019-08-14 12:03] LABS: Albumin 3.9 g/dL (3.5-5.0); Calcium 9.1 mg/dL (8.4-10.2); Magnesium 2.9 mg/dL (1.6-2.3); Potassium 3.3 mmol/L (3.5-5.1); Total Bilirubin 0.7 mg/dL (0.2-1.3); Total Protein 6.9 g/dL (6.3-8.2)
--- NOTE | 2019-08-14 12:06 | XR ---
EXAMINATION TYPE: XR chest 2V DATE OF EXAM: 08/14/2019 COMPARISON: 05/14/2019 INDICATION: Chest pain TECHNIQUE: Frontal and lateral views of the chest are obtained. FINDINGS: The heart size is probably prominent. The pulmonary vasculature is normal. Some plate like atelectasis above the right diaphragm. Some mild atelectasis may be at the left base. IMPRESSION: 1. Bibasilar platelike atelectasis. 2. Mild cardiomegaly
[2019-08-14 12:10] LABS: INR 1.1 (<1.2); Partial Thromboplastin Time 24.2 sec (22.0-30.0); Prothrombin Time 11.1 sec (9.0-12.0)
[2019-08-14] MEDS ORDERED: DILTIAZEM 5 MG/ML 5 ML VIAL IV ONE (12:15)
[2019-08-14] MEDS ORDERED: DILTIAZEM 5 MG/ML 5 ML VIAL IVP STA (12:54)
[2019-08-14] MEDS ORDERED: POTASSIUM CHLORIDE ER 20 MEQ TAB.ER PO STA (12:59)
[2019-08-14] MEDS ORDERED: NITROGLYCERIN SL TABS 0.4 MG TAB SUBLINGUAL PRN (13:26)
[2019-08-14] MEDS: DILTIAZEM 125 MG in SODIUM CHLORIDE 0.9% 100 ML IV SCH (13:38)
[2019-08-14] MEDS ORDERED: DOBUTamine DRIP 500 MG in DEXTROSE/WATER 1 250ML.BAG IV SCH (14:30)
[2019-08-14] MEDS: SODIUM CHLORIDE 0.9% 1,000 ML IV SCH (15:08)
[2019-08-14] MEDS: ACETAMINOPHEN TAB 325 MG TAB PO PRN (16:58)
[2019-08-14] MEDS: traMADol 50 MG TAB PO SCH (21:15)
[2019-08-14] MEDS ORDERED: HEPARIN SODIUM,PORCINE 5,000 UNIT/ML 1 ML VIAL IV ONE ×2 (22:10)
[2019-08-14] MEDS ORDERED: HEPARIN SODIUM,PORCINE 5,000 UNIT/ML 1 ML VIAL IV PRN (22:10)
[2019-08-14] MEDS ORDERED: MELATONIN 3 MG TABLET PO PRN (22:30)
[2019-08-14 22:38] LABS: HGB 11.7 gm/dL (13.0-17.5); MCH 34.9 pg (25.0-35.0); MCHC 34.3 g/dL (31.0-37.0); MCV 101.8 fL (80.0-100.0); Macrocytosis Slight; Platelet Count 204 k/uL (150-450); RBC 3.34 m/uL (4.30-5.90); RDW 15.5 % (11.5-15.5); WBC 6.7 k/uL (3.8-10.6)
[2019-08-14 22:49] LABS: INR 1.1 (<1.2); Partial Thromboplastin Time 25.9 sec (22.0-30.0); Prothrombin Time 11.5 sec (9.0-12.0)
[2019-08-14] MEDS: HEPARIN SOD,PORK IN 0.45% NACL 25,000 UNIT in 0.45% NACL 1 250ML.BAG IV SCH (23:16)
[2019-08-15] MEDS: ACETAMINOPHEN TAB 325 MG TAB PO PRN ×2 (00:29→05:32)
[2019-08-15 06:36] LABS: HCT 34.6 % (39.0-53.0); HGB 11.2 gm/dL (13.0-17.5); MCH 33.5 pg (25.0-35.0); MCHC 32.3 g/dL (31.0-37.0); MCV 103.7 fL (80.0-100.0); Macrocytosis Moderate; Mean Platelet Volume 7.5; Platelet Count 188 k/uL (150-450); RBC 3.34 m/uL (4.30-5.90); RDW 15.5 % (11.5-15.5); WBC 6.5 k/uL (3.8-10.6)
[2019-08-15 07:03] LABS: Calcium 8.7 mg/dL (8.4-10.2); Potassium 2.9 mmol/L (3.5-5.1)
[2019-08-15] MEDS: TAMSULOSIN 0.4 MG CAP.ER.24H PO SCH ×2 (09:44→22:32)
[2019-08-15] MEDS: FUROSEMIDE 80 MG TAB PO SCH (09:44)
[2019-08-15] MEDS: ASPIRIN 325 MG TAB PO SCH (09:44)
[2019-08-15] MEDS: MIDODRINE 5 MG TAB PO SCH ×2 (09:45→16:39)
[2019-08-15] MEDS: traMADol 50 MG TAB PO SCH ×3 (09:45→22:32)
[2019-08-15] MEDS: LISINOPRIL 2.5 MG TAB PO SCH (09:45)
[2019-08-15] MEDS: LIDOCAINE 5% PATCH TOPICAL SCH (09:45)
[2019-08-15] MEDS: DILTIAZEM 125 MG in SODIUM CHLORIDE 0.9% 100 ML IV SCH (12:52)
[2019-08-15] MEDS: DILTIAZEM ORAL 30 MG TAB PO SCH ×2 (13:27→22:32)
[2019-08-15] MEDS ORDERED: FUROSEMIDE 40 MG TAB PO SCH (14:00)
--- NOTE | 2019-08-15 16:24 | P.HPIM ---
History of Present Illness H&P Date: 08/15/19 On this is an 84-year-old male patient of Dr. Mosqueda with past medical history of paroxysmal atrial fibrillation status post cardiac ablation in 2007 as well as cardioversions a couple times since then, hypertension, osteoarthritis, obstructive sleep apnea but not currently on a CPAP, psoriasis, hard of hearing. Patient's gives history that patient wasn't [facility] one month ago and was on a heparin drip and Lasix drip was treated for heart failure. He had a hematoma develop on the left hip without any fall and it was causing difficulty walking ended up going to rehab at [facility]. While he was at [facility] she states that his kidney function was affected. On Saturday he went home and starting on Saturday he was feeling bad. He saw cardiology in the office and he was started on digoxin which she read see one dose at home and then he was called on Saturday that his lab work was abnormal, blood pressure was on the lower side anyway and patient was told to come into the hospital. Patient has not been on any recent steroids. He denies any blood or tarry stools. He denies any chest pain, palpitations. He states he feels weak. He does have chronic lower extremity wounds. Patient came into [facility] emergency center for evaluation. He was afebrile, initial blood pressure 86/45, heart rate 67. EKG was atrial fibrillation with RVR at 158. Patient was started on Cardizem bolus and drip. CBC within normal limits, BUN 112, creatinine 1.69, sodium 134, potassium 3.3, chloride 94, CO2 31, blood sugar 115. Magnesium 2.9. Troponins negative on 3 draws. Triglycerides 81, cholesterol 165, LDL 104, HDL 45. Patient was admitted to the cardiac stepdown unit and cardiology consult requested. Review of Systems Constitutional: Denies anorexia, Denies chills, Denies fatigue, Denies fever, Denies lethargy, Denies malaise, Denies poor appetite, Denies sweats, Denies weight loss Eyes: denies blurred vision, denies pain Ears, nose, mouth and throat: Denies headache, Denies nasal congestion, Denies nasal discharge, Denies sore throat, Denies vertigo Cardiovascular: Denies chest pain, Denies decreased exercise tolerance, Denies dyspnea on exertion, Denies edema, Denies leg edema, Denies lightheadedness, Denies shortness of breath, Denies syncope Respiratory: Denies cough with sputum, Reports sleep apnea, Denies dyspnea, Denies excessive sputum, Denies hemoptysis, Denies home oxygen Gastrointestinal: Denies abdominal pain, Denies diarrhea, Denies loss of appetite, Denies nausea, Denies vomiting Genitourinary: Denies dysuria, Denies urinary retention Musculoskeletal: Denies frequent falls, Denies gait dysfunction, Denies muscle weakness, Denies myalgias Integumentary: Denies pruritus, Denies rash, Denies wounds Neurological: Denies change in mentation, Denies change in speech, Denies double vision, Denies numbness, Denies vertigo, Denies weakness Psychiatric: Denies anxiety, Denies depression Endocrine: Denies fatigue, Denies weight change Past Medical History Past Medical History: Atrial Fibrillation, Heart Failure Additional Past Medical History / Comment(s): Pt recently had an influenza and was on an antibiotic, recently told he has a "spot" on his R lung-not worked up yet, Afib with RVR in past, no CPAP necessary, kidney stones, psoriasis, reactive airway, urinary frequency. History of Any Multi-Drug Resistant Organisms: None Reported Past Surgical History: Cardiac Ablation, Joint Replacement, Orthopedic Surgery Additional Past Surgical History / Comment(s): cardiac ablation X2, kidney surgery 1955, iron knee, iron hip, Cardioversionx4 chip right shoulder, loss finger on left hand Past Anesthesia/Blood Transfusion Reactions: No Reported Reaction Past Psychological History: No Psychological Hx Reported Additional Psychological History / Comment(s): Pt resides with his spouse of 58 yrs. He is independent. Smoking Status: Current some day smoker Past Alcohol Use History: None Reported Additional Past Alcohol Use History / Comment(s): Patient smoked a pipe for 7 years and quit 40 years ago. No alcohol use, no marijuana or illicit drug use. Past Drug Use History: None Reported - Past Family History Mother Family Medical History: Cancer Additional Family Medical History / Comment(s): Mother at age 82 of lung cancer. Father Family Medical History: Cancer Additional Family Medical History / Comment(s): Father at age 80 of prostrate cancer. Brother(s) Family Medical History: Cancer Additional Family Medical History / Comment(s): Patient has a total of 6 brothers. One brother with history of atrial fibrillation and kidney cancer, second brother with valvular heart disease, third brother with Parkinson's. Daughter(s) Additional Family Medical History / Comment(s): Patient has 3 children and one daughter from complications from obesity. Other 2 children have no major medical problems. Medications and Allergies Home Medications Medication Instructions Recorded Confirmed Type Tamsulosin HCl [Flomax] 0.4 mg PO BID 07/12/14 08/14/19 History Acetaminophen Tab [Tylenol Tab] 1,000 mg PO Q8HR PRN 08/14/19 08/14/19 History Aspirin EC [Ecotrin Low Dose] 81 mg PO DAILY 08/14/19 08/14/19 History Digoxin [Digitek] 125 mcg PO DAILY 08/14/19 08/14/19 History Digoxin [Digitek] 250 mcg PO DAILY 08/14/19 08/14/19 History Furosemide [Lasix] 40 mg PO DAILY@1400 08/14/19 08/14/19 History Furosemide [Lasix] 80 mg PO QAM 08/14/19 08/14/19 History Lidocaine 5% Patch [Lidoderm] 1 patch TOPICAL DAILY 08/14/19 08/14/19 History Lisinopril [Zestril] 2.5 mg PO DAILY 08/14/19 08/14/19 History Melatonin 6 mg PO HS 08/14/19 08/14/19 History Metolazone [Zaroxolyn] 2.5 mg PO DAILY 08/14/19 08/14/19 History Metoprolol Succinate (ER) [Toprol 25 mg PO DAILY@1700 08/14/19 08/14/19 History Xl] Midodrine HCl 5 mg PO BID 08/14/19 08/14/19 History traMADol HCL [Ultram] 50 mg PO Q6HR PRN 08/14/19 08/14/19 History Allergies Allergy/AdvReac Type Severity Reaction Status Date / Time isosorbide mononitrate Allergy Unknown Verified 08/14/19 14:52 [From Imdur] Penicillins Allergy Rash/Hives Verified 08/14/19 14:52 albuterol [From Ventolin HFA] AdvReac Rapid Verified 08/14/19 14:52 Heart Rate amiodarone HCl AdvReac LUNGS/EYE Verified 08/14/19 14:52 [From Cordarone] PROBLEMS codeine AdvReac Nausea & Verified 08/14/19 14:52 Vomiting enalapril maleate AdvReac Cough Verified 08/14/19 14:52 [From Vasotec] enalaprilat dihydrate AdvReac Cough Verified 08/14/19 14:52 [From Vasotec] hydromorphone HCl AdvReac Nausea & Verified 08/14/19 14:52 [From Dilaudid] Vomiting loratadine [From Claritin] AdvReac Rapid Verified 08/14/19 14:52 Heart Rate morphine AdvReac Nausea & Verified 08/14/19 14:52 Vomiting procainamide HCl AdvReac "FLUID ON Verified 08/14/19 14:52 [From Pronestyl] HEART" tetanus toxoid, adsorbed AdvReac "JOINT Verified 08/14/19 14:52 STIFFNESS" Physical Exam Vitals: Vital Signs Temp Pulse Pulse Resp BP BP Pulse Ox 08/15/19 12:00 98.4 F 79 16 113/72 97 08/15/19 08:00 98.5 F 86 16 105/57 100 08/15/19 04:00 120 H 16 103/65 99 08/15/19 00:00 114 H 18 101/53 95 08/14/19 20:00 98.3 F 117 H 16 111/70 96 08/14/19 14:00 138 H 20 103/71 98 Intake and Output 08/14/19 08/15/19 08/15/19 22:59 06:59 14:59 Intake Total 79.917 285.083 Output Total 375 525 Balance -375 -445.083 285.083 Intake: Intake, IV Titration 79.917 45.083 Amount Diltiazem 125 mg In 79.917 45.083 Sodium Chloride 0.9% 100 ml @ 5 MG/HR 5 mls/hr IV .Q24H [facility] Rx#:[id number] Oral 240 Output: Urine 375 525 Other: Voiding Method Urinal Urinal Urinal Weight 107.955 kg 117.5 kg Gen: This is an 84-year-old male. He is sitting up in a chair and appears to be comfortable and in no acute distress. No respiratory distress is noted. HEENT: Head is atraumatic, normocephalic. Pupils equal, round. Sclerae is anicteric. NECK: Supple. No JVD. No lymphadenopathy. No thyromegaly. LUNGS: Clear to auscultation. No wheezes or rhonchi. No intercostal retractions. HEART: Irregularly irregular rate and rhythm. Systolic murmur. ABDOMEN: Soft. Bowel sounds are present. No masses. No tenderness. EXTREMITIES: No pedal edema. No calf tenderness. Multiple lower extremity wounds. Please see nursing documentation and pictures for details. NEUROLOGICAL: Patient is awake, alert and oriented x3. Cranial nerves 2 through 12 are grossly intact. Results CBC & Chem 7: 08/15/19 05:30 08/15/19 05:30 Labs: Abnormal Lab Results - Last 24 Hours (Table) 08/14/19 08/15/19 08/15/19 Range/Units 22:26 05:30 05:30 RBC 3.34 L (4.30-5.90) m/uL Hgb 11.7 L (13.0-17.5) gm/dL Hct 34.0 L (39.0-53.0) % MCV 101.8 H (80.0-100.0) fL APTT 45.1 H (22.0-30.0) sec Potassium 2.9 L (3.5-5.1) mmol/L Carbon Dioxide 32 H (22-30) mmol/L BUN 80 H (9-20) mg/dL Glucose 116 H (74-99) mg/dL LDL Cholesterol, Calc 104 H (0-99) mg/dL 08/15/19 Range/Units 05:30 RBC 3.34 L (4.30-5.90) m/uL Hgb 11.2 L (13.0-17.5) gm/dL Hct 34.6 L (39.0-53.0) % MCV 103.7 H (80.0-100.0) fL APTT (22.0-30.0) sec Potassium (3.5-5.1) mmol/L Carbon Dioxide (22-30) mmol/L BUN (9-20) mg/dL Glucose (74-99) mg/dL LDL Cholesterol, Calc (0-99) mg/dL Thrombosis Risk Factor Assmnt - Choose All That Apply Each Risk Factor Represents 3 Points: Age 75 years or older Thrombosis Risk Factor Assessment Total Risk Factor Score: 3 Thrombosis Risk Factor Assessment Level: Moderate Risk Assessment and Plan Plan: 1. Atrial fibrillation with RVR. Cardizem drip transitioned to oral 30 mg 3 times daily, heparin drip 2. Paroxysmal atrial fibrillation. Continue Cardizem. 3. Obstructive sleep apnea. Patient will need to use the CPAP. 4. Hypertension. Continue Cardizem, Lasix. Patient currently on midodrine twice daily 5. Benign prostatic hypertrophy. Monitor for urinary retention. Continue Flomax 0.4 mg twice daily. 6. Chronic lower extremity vascular ulcers. Consult with wound care on Saturday. Continue local wound care. 7. GI prophylaxis. Pepcid 20 mg orally once every day. 8. DVT prophylaxis. Heparin drip Hospital admission for a minimum of 2 night stay. Impression and plan of care have been directed as dictated by the signing physician. Urmila Carey nurse practitioner acting as scribe for signing physician.
[2019-08-15] MEDS: SODIUM CHLORIDE 0.9% 1,000 ML IV SCH (16:39)
--- NOTE | 2019-08-15 17:00 | ECHOF ---
Referral Reason:Tachycardia MEASUREMENTS -------- HEIGHT: 182.9 cm WEIGHT: 108.4 kg BP: IVSd: 1.4 cm (0.6 - 1.1) LVIDd: 5.4 cm (3.9 - 5.3) LVPWd: 1.6 cm (0.6 - 1.1) IVSs: 1.8 cm LVIDs: 3.5 cm LVPWs: 1.7 cm Ao Diam: 4.2 cm (2.0 - 3.7) AV Cusp: 2.0 cm (1.5 - 2.6) MV E Casper: 0.90 m/s MV DecT: 131 ms MV A Casper: 0.76 m/s MV E/A Ratio: 1.19 RAP: 5.00 mmHg FINDINGS -------- Resting tachycardia (HR>100bpm). This was a technically adequate study. The left ventricular size is normal. There is moderate concentric left ventricular hypertrophy. H eart Rate is Tachycardia, can''t comment on EF. The right ventricle is normal in size. The left atrium is moderately dilated. The right atrial size is normal. There is mild aortic valve sclerosis. There is no evidence of aortic regurgitation. Mild mitral annular calcification present. Mild mitral regurgitation is present. Mild tricuspid regurgitation present. Right ventricular systolic pressure is normal at < 35 mmHg. There is no evidence of pulmonary hypertension. There is no pulmonic regurgitation present. Aortic Root is dilated and measures 4.2cm. There is a trivial pericardial effusion present. CONCLUSIONS -------- 1. Resting tachycardia (HR>100bpm). 2. This was a technically adequate study. 3. The left ventricular size is normal. 4. There is moderate concentric left ventricular hypertrophy. 5. Heart Rate is Tachycardia, can''t comment on EF. 6. The right ventricle is normal in size. 7. The left atrium is moderately dilated. 8. The right atrial size is normal. 9. There is mild aortic valve sclerosis. 10. Mild mitral annular calcification present. 11. Mild mitral regurgitation is present. 12. Mild tricuspid regurgitation present. 13. Right ventricular systolic pressure is normal at < 35 mmHg. 14. There is no evidence of pulmonary hypertension. 15. There is no pulmonic regurgitation present. 16. Aortic Root is dilated and measures 4.2cm. 17. There is a trivial pericardial effusion present. [employer]ING [employer] QUARRYING MACHINERY REPAIRER: Liz Prado RDCS
--- NOTE | 2019-08-15 21:47 | CONS ---
CONSULTATION CHIEF COMPLAINT: Atrial fibrillation with rapid ventricular rate. HISTORY OF PRESENT ILLNESS: This is an 84-year-old gentleman who is admitted to hospital with congestive heart failure and atrial fibrillation with rapid ventricular rate. He also had recent labs done that showed that he had renal failure with a BUN of 112 and creatinine of 1.6. He was initially evaluated by Dr. Martinez in the office. Following the abnormal labs, he was advised to come to the emergency room where he was admitted. The patient was initially in atrial fibrillation with rapid ventricular rate and we treated him gently with intravenous Cardizem. His symptoms have improved overnight. At the time of my evaluation, his heart rate is 79 beats per minute. His EKG shows atrial fibrillation with rapid ventricular rate. The patient has known chronic atrial fibrillation and was on Coumadin. The patient has had some bleeding into the left thigh following which the Coumadin had been stopped. On this admission, he was started on IV heparin. Since being admitted, his BUN has decreased from 112-80 and creatinine to 1.1 from 1.6. It appears most of the renal insufficiency that the patient had was due to over-diuresis. The patient was on Zaroxolyn along with Lasix at home. PAST MEDICAL HISTORY: Significant for chronic diastolic heart failure, atrial fibrillation, sleep apnea, obesity. PAST SURGICAL HISTORY: Significant for ablation, cardioversion, bilateral total knee arthroplasty and hip arthroplasty. ALLERGIES: ARE CHARTED. MEDICATIONS: Medications at home include: Digoxin, Flomax, Ultram, Toprol-XL, Lasix, Tylenol, Zaroxolyn, Zestril, Lidoderm, and aspirin. FAMILY HISTORY: Negative for premature coronary artery disease. SOCIAL HISTORY: Negative for smoking, EtOH abuse or drug abuse. REVIEW OF SYSTEMS: HEENT is unremarkable. Cardiac as described above. Respiratory as described above. GI negative. : Negative. Allergy/Immunology: Negative. Skin negative. Musculoskeletal significant for arthritis. Psychosocial negative. Endocrine: Negative. Derm negative. Constitutional negative. Oncological negative. [employer] negative. Rest of the system review is not relevant. PHYSICAL EXAMINATION: On exam, patient is comfortable at rest. Vital signs are stable. There is no jugular venous distention. Chest exam reveals diminished air entry at the bases. Heart exam reveals first and second heart sounds, irregular rhythm and a systolic murmur at the left lower sternal border. Abdomen is soft. Exam of extremities reveals bilateral pitting edema, erythema and cellulitis. Pulses are diminished. LAB: Show a hemoglobin of 11.2, potassium is 2.9, BUN is 80, creatinine is 1.1. Tropes are negative. EKG shows atrial fibrillation with rapid ventricular rate. ASSESSMENT: 1. Persistent atrial fibrillation with rapid ventricular rate. 2. Chronic diastolic heart failure. 3. Renal failure secondary to over-diuresis. 4. Cellulitis of legs. PLAN: We will continue the patient on IV heparin. If he tolerates it well, we will consider switching him to Eliquis. Control the heart rate with Cardizem. MMODL / IJN: [id number] /
[2019-08-15] MEDS ORDERED: POTASSIUM CHLORIDE ER 20 MEQ TAB.ER PO STA (22:21)
[2019-08-15] MEDS: HEPARIN SOD,PORK IN 0.45% NACL 25,000 UNIT in 0.45% NACL 1 250ML.BAG IV SCH (22:33)
[2019-08-15] MEDS ORDERED: POTASSIUM CHLORIDE ER 20 MEQ TAB.ER PO ONE (23:30)
[2019-08-16] MEDS: ACETAMINOPHEN TAB 325 MG TAB PO PRN (04:06)
[2019-08-16] MEDS: DILTIAZEM ORAL 30 MG TAB PO SCH ×3 (05:31→21:24)
[2019-08-16] MEDS ORDERED: POTASSIUM CHLORIDE ER 20 MEQ TAB.ER PO ONE (06:00)
[2019-08-16 06:04] LABS: HCT 34.4 % (39.0-53.0); HGB 11.1 gm/dL (13.0-17.5); MCH 33.4 pg (25.0-35.0); MCHC 32.2 g/dL (31.0-37.0); MCV 103.5 fL (80.0-100.0); Macrocytosis Moderate; Mean Platelet Volume 7.7; Platelet Count 181 k/uL (150-450); RBC 3.33 m/uL (4.30-5.90); RDW 15.5 % (11.5-15.5); WBC 7.1 k/uL (3.8-10.6)
[2019-08-16 06:32] LABS: Calcium 8.6 mg/dL (8.4-10.2); Potassium 3.8 mmol/L (3.5-5.1)
[2019-08-16] MEDS: SODIUM CHLORIDE 0.9% 1,000 ML IV SCH (07:05)
[2019-08-16] MEDS: MIDODRINE 5 MG TAB PO SCH ×2 (08:29→17:03)
[2019-08-16] MEDS: traMADol 50 MG TAB PO SCH ×4 (08:29→21:24)
[2019-08-16] MEDS: TAMSULOSIN 0.4 MG CAP.ER.24H PO SCH ×2 (08:29→21:24)
[2019-08-16] MEDS: FUROSEMIDE 80 MG TAB PO SCH (08:29)
[2019-08-16] MEDS: ASPIRIN 325 MG TAB PO SCH (08:29)
[2019-08-16] MEDS: LISINOPRIL 2.5 MG TAB PO SCH (08:29)
[2019-08-16] MEDS: LIDOCAINE 5% PATCH TOPICAL SCH (08:30)
[2019-08-16] MEDS ORDERED: METOPROLOL TARTRATE 25 MG TAB PO SCH (09:00)
--- NOTE | 2019-08-16 09:24 | P.PN ---
Subjective Progress Note Date: 08/16/19 On this is an 84-year-old male patient of Dr. Mosqueda with past medical history of paroxysmal atrial fibrillation status post cardiac ablation in 2007 as well as cardioversions a couple times since then, hypertension, osteoarthritis, obstructive sleep apnea but not currently on a CPAP, psoriasis, hard of hearing. Patient's gives history that patient wasn't [facility] one month ago and was on a heparin drip and Lasix drip was treated for heart failure. He had a hematoma develop on the left hip without any fall and it was causing difficulty walking ended up going to rehab at [facility]. While he was at [facility] she states that his kidney function was affected. On Saturday he went home and starting on Saturday he was feeling bad. He saw cardiology in the office and he was started on digoxin which she read see one dose at home and then he was called on Saturday that his lab work was abnormal, blood pressure was on the lower side anyway and patient was told to come into the hospital. Patient has not been on any recent steroids. He denies any blood or tarry stools. He denies any chest pain, palpitations. He states he feels weak. He does have chronic lower extremity wounds. Patient came into [facility] emergency center for evaluation. He was afebrile, initial blood pressure 86/45, heart rate 67. EKG was atrial fibrillation with RVR at 158. Patient was started on Cardizem bolus and drip. CBC within normal limits, BUN 112, creatinine 1.69, sodium 134, potassium 3.3, chloride 94, CO2 31, blood sugar 115. Magnesium 2.9. Troponins negative on 3 draws. Triglycerides 81, cholesterol 165, LDL 104, HDL 45. Patient was ad mitted to the cardiac stepdown unit and cardiology consult requested. 08/16: Patient remains in A. fib with RVR with heart rate running between 120-130 up to 144 intermittently. He he is currently on heparin drip and Cardizem 30 mg 3 times daily oral. Lopressor will be resumed at 25 mg twice daily. Patient has been afebrile, blood pressure 105/55, pulse ox 95% on room air. WBC 7.3, hemoglobin 11.1, platelet count 181. Sodium 135, potassium 3.8, chloride 99, CO2 36, BUN 1261 and creatinine 0.94, blood sugar 114. Review of Systems Constitutional: Denies anorexia, Denies chills, Denies fatigue, Denies fever, Denies lethargy, Denies malaise, Denies poor appetite, Denies sweats, Denies weight loss Eyes: denies blurred vision Ears, nose, mouth and throat: Denies headache, Denies nasal congestion, Denies nasal discharge, Denies sore throat, Denies vertigo Cardiovascular: Denies chest pain, Denies decreased exercise tolerance, Denies dyspnea on exertion, Denies edema, Denies leg edema, Denies lightheadedness, Denies shortness of breath, Denies syncope Respiratory: Denies cough with sputum, Reports sleep apnea, Denies dyspnea, Denies excessive sputum, Denies hemoptysis, Denies home oxygen Gastrointestinal: Denies abdominal pain, Denies diarrhea, Denies loss of appetite, Denies nausea, Denies vomiting Genitourinary: Denies dysuria, Denies urinary retention Musculoskeletal: Denies frequent falls, Denies gait dysfunction, Denies muscle weakness, Denies myalgias Integumentary: Denies pruritus, Denies rash, Denies wounds Neurological: Denies change in mentation, Denies change in speech, Denies double vision, Denies numbness, Denies vertigo, Denies weakness Psychiatric: Denies anxiety, Denies depression Endocrine: Denies fatigue, Denies weight change Objective - Vital Signs Vital signs: Vital Signs Temp 98.4 F 08/16/19 08:35 Pulse 100 08/16/19 08:35 Resp 16 08/16/19 08:35 BP 105/55 08/16/19 08:35 Pulse Ox 98 08/16/19 08:35 Intake & Output 08/15/19 08/16/19 08/16/19 18:59 06:59 18:59 Intake Total 285.083 232.763 324.808 Output Total 600 1800 Balance -314.917 -1567.237 324.808 Weight 117.5 kg 111.6 kg Intake: Intake, IV Titration 45.083 232.763 84.808 Amount Diltiazem 125 mg In 45.083 Sodium Chloride 0.9% 100 ml @ 5 MG/HR 5 mls/hr IV .Q24H [facility] Rx#:[id number] Heparin Sod,Pork in 0.45% 232.763 84.808 NaCl 25,000 unit In 0.45 % NaCl 1 250ml.bag @ 9.26 UNITS/KG/HR 9.997 mls/hr IV .Q24H [facility] Rx#: [id number] Oral 240 240 Output: Urine 600 1800 Other: Voiding Method Urinal Urinal Urinal # Voids 3 - Exam Gen: This is an 84-year-old male. He is sitting up in a chair and appears to be comfortable and in no acute distress. No respiratory distress is noted. HEENT: Head is atraumatic, normocephalic. Pupils equal, round. Sclerae is anicteric. NECK: Supple. No JVD. No lymphadenopathy. No thyromegaly. LUNGS: Clear to auscultation. No wheezes or rhonchi. No intercostal retractio ns. HEART: Irregularly irregular rate and rhythm. Systolic murmur. ABDOMEN: Soft. Bowel sounds are present. No masses. No tenderness. EXTREMITIES: No pedal edema. No calf tenderness. Multiple lower extremity wounds. Please see nursing documentation and pictures for details. NEUROLOGICAL: Patient is awake, alert and oriented x3. Cranial nerves 2 through 12 are grossly intact. - Labs CBC & Chem 7: 08/16/19 05:45 08/16/19 05:45 Labs: Abnormal Lab Results - Last 24 Hours (Table) 08/16/19 08/16/19 08/16/19 Range/Units 05:30 05:45 05:45 RBC 3.33 L (4.30-5.90) m/uL Hgb 11.1 L (13.0-17.5) gm/dL Hct 34.4 L (39.0-53.0) % MCV 103.5 H (80.0-100.0) fL APTT 33.0 H (22.0-30.0) sec Sodium 135 L (137-145) mmol/L Carbon Dioxide 36 H (22-30) mmol/L BUN 61 H (9-20) mg/dL Glucose 114 H (74-99) mg/dL Assessment and Plan Plan: 1. Atrial fibrillation with RVR. 2. Paroxysmal atrial fibrillation. 3. Obstructive sleep apnea. 4. Hypertension. 5. Benign prostatic hypertrophy. 6. Chronic lower extremity vascular ulcers. Plan: Patient will be transitioned off heparin drip to eliquis 5 mg twice daily Continue Cardizem 30 mg 3 times daily Resume on Metoprolol XL an increased dose to 50 mg daily Patient received 1 dose of Lopressor 25 mg On amiodarone 400 mg twice daily and Digoxin 250 g oral daily The patient for eliquis has been prescribed to the patient's pharmacy to check coverage Further recommendations to follow based upon clinical course Impression and plan of care have been directed as dictated by the signing physician. Urmila Carey nurse practitioner acting as scribe for signing phys ician.
[2019-08-16] MEDS: APIXABAN 5 MG TAB PO SCH ×2 (09:32→21:24)
[2019-08-16] MEDS ORDERED: METOPROLOL SUCCINATE (ER) 25 MG TAB.ER.24H PO SCH (09:45)
[2019-08-16] MEDS: DIGOXIN 250 MCG TAB PO SCH (11:50)
[2019-08-16] MEDS: SPIRONOLACTONE 25 MG TAB PO SCH (11:50)
[2019-08-16] MEDS: SENNOSIDES-DOCUSATE SODIUM 1 EACH TAB PO SCH (11:51)
[2019-08-16] MEDS: AMIODARONE 200 MG TAB PO SCH ×2 (11:51→21:24)
--- NOTE | 2019-08-16 12:33 | P.PN ---
Subjective Progress Note Date: 08/16/19 On this is an 84-year-old male patient of Dr. Mosqueda with past medical history of paroxysmal atrial fibrillation status post cardiac ablation in 2007 as well as cardioversions a couple times since then, hypertension, osteoarthritis, obstructive sleep apnea but not currently on a CPAP, psoriasis, hard of hearing. Patient's gives history that patient wasn't [facility] one month ago and was on a heparin drip and Lasix drip was treated for heart failure. He had a hematoma develop on the left hip without any fall and it was causing difficulty walking ended up going to rehab at [facility]. While he was at [facility] she states that his kidney function was affected. On Saturday he went home and starting on Saturday he was feeling bad. He saw cardiology in the office and he was started on digoxin which she read see one dose at home and then he was called on Saturday that his lab work was abnormal, blood pressure was on the lower side anyway and patient was told to come into the hospital. Patient has not been on any recent steroids. He denies any blood or tarry stools. He denies any chest pain, palpitations. He states he feels weak. He does have chronic lower extremity wounds. Patient came into [facility] emergency center for evaluation. He was afebrile, initial blood pressure 86/45, heart rate 67. EKG was atrial fibrillation with RVR at 158. Patient was started on Cardizem bolus and drip. CBC within normal limits, BUN 112, creatinine 1.69, sodium 134, potassium 3.3, chloride 94, CO2 31, blood sugar 115. Magnesium 2.9. Troponins negative on 3 draws. Triglycerides 81, cholesterol 165, LDL 104, HDL 45. Patient was ad mitted to the cardiac stepdown unit and cardiology consult requested. 08/16: Patient remains in A. fib with RVR with heart rate running [id number] up to 144 intermittently. He he is currently on heparin drip and Cardizem 30 mg 3 times daily oral. Cardiology has transitioned heparin to eliquis and resumed on Metoprolol XL increased dose to 50 mg daily, 1 dose of Lopressor 25 mg, started amiodarone 400 mg twice daily and Digoxin 250 g oral daily. Eliquis has been prescribed to the patient's pharmacy to check coverage Patient has been afebrile, blood pressure 105/55, pulse ox 95% on room air. WBC 7.3, hemoglobin 11.1, platelet count 181. Sodium 135, potassium 3.8, chloride 99, CO2 36, BUN 1261 and creatinine 0.94, blood sugar 114. Patient is complaining of pain pill tramadol not holding him and will increase to this to 4 times daily. Review of Systems Constitutional: Denies anorexia, Denies chills, Denies fatigue, Denies fever, Denies lethargy, Denies malaise, Denies poor appetite, Denies sweats, Denies weight loss Eyes: denies blurred vision Ears, nose, mouth and throat: Denies headache, Denies nasal congestion, Denies nasal discharge, Denies sore throat, Denies vertigo Cardiovascular: Denies chest pain, Denies decreased exercise tolerance, Denies dyspnea on exertion, Denies edema, Denies leg edema, Denies lightheadedness, Denies shortness of breath, Denies syncope Respiratory: Denies cough with sputum, Reports sleep apnea, Denies dyspnea, Denies excessive sputum, Denies hemoptysis, Denies home oxygen Gastrointestinal: Denies abdominal pain, Denies diarrhea, Denies loss of appetite, Denies nausea, Denies vomiting Genitourinary: Denies dysuria, Denies urinary retention Musculoskeletal: Denies frequent falls, Denies gait dysfunction, Denies muscle weakness, Denies myalgias Integumentary: Denies pruritus, Denies rash, Denies wounds Neurological: Denies change in mentation, Denies change in speech, Denies double vision, Denies numbness, Denies vertigo, Denies weakness Psychiatric: Denies anxiety, Denies depression Endocrine: Denies fatigue, Denies weight change Objective - Vital Signs Vital signs: Vital Signs Temp 98.4 F 08/16/19 08:35 Pulse 100 08/16/19 08:35 Resp 16 08/16/19 08:35 BP 105/55 08/16/19 08:35 Pulse Ox 98 08/16/19 08:35 Intake & Output 08/15/19 08/16/19 08/16/19 18:59 06:59 18:59 Intake Total 285.083 232.763 324.808 Output Total 600 1800 Balance -314.917 -1567.237 324.808 Weight 117.5 kg 111.6 kg Intake: Intake, IV Titration 45.083 232.763 84.808 Amount Diltiazem 125 mg In 45.083 Sodium Chloride 0.9% 100 ml @ 5 MG/HR 5 mls/hr IV .Q24H [facility] Rx#:[id number] Heparin Sod,Pork in 0.45% 232.763 84.808 NaCl 25,000 unit In 0.45 % NaCl 1 250ml.bag @ 9.26 UNITS/KG/HR 9.997 mls/hr IV .Q24H [facility] Rx#: [id number] Oral 240 240 Output: Urine 600 1800 Other: Voiding Method Urinal Urinal Urinal # Voids 3 - Exam Gen: This is an 84-year-old male. He is sitting up in a chair and appears to be comfortable and in no acute distress. No respiratory distress is noted. Lesions is at bedside. HEENT: Head is atraumatic, normocephalic. Pupils equal, round. Sclerae is anicteric. NECK: Supple. No JVD. No lymphadenopathy. No thyromegaly. LUNGS: Clear to auscultation. No wheezes or rhonchi. No intercostal retractions. HEART: Irregularly irregular rate and rhythm. Systolic murmur. ABDOMEN: Soft. Bowel sounds are present. No masses. No tenderness. EXTREMITIES: No pedal edema. No calf tenderness. Multiple lower extremity wounds. Please see nursing documentation and pictures for details. NEUROLOGICAL: Patient is awake, alert and oriented x3. Cranial nerves 2 through 12 are grossly intact. - Labs CBC & Chem 7: 08/16/19 05:45 08/16/19 05:45 Labs: Abnormal Lab Results - Last 24 Hours (Table) 08/16/19 08/16/19 08/16/19 Range/Units 05:30 05:45 05:45 RBC 3.33 L (4.30-5.90) m/uL Hgb 11.1 L (13.0-17.5) gm/dL Hct 34.4 L (39.0-53.0) % MCV 103.5 H (80.0-100.0) fL APTT 33.0 H (22.0-30.0) sec Sodium 135 L (137-145) mmol/L Carbon Dioxide 36 H (22-30) mmol/L BUN 61 H (9-20) mg/dL Glucose 114 H (74-99) mg/dL Assessment and Plan Plan: 1. Atrial fibrillation with RVR. Cardizem 30 mg 3 times daily, Metoprolol XL 50 mg daily, 1 dose of Lopressor 25 mg, started on amiodarone 400 mg twice daily and Digoxin 250 g oral daily. The patient for eliquis has been prescribed to the patient's pharmacy to check coverage, heparin drip discontinued. 2. Paroxysmal atrial fibrillation. Continue as above. 3. Obstructive sleep apnea. Patient will need to use the CPAP. 4. Hypertension. Continue Cardizem, Lasix. Patient currently on midodrine twice daily 5. Benign prostatic hypertrophy. Monitor for urinary retention. Continue Flomax 0.4 mg twice daily. 6. Chronic lower extremity vascular ulcers. Consult with wound care on Saturday. Continue local wound care. Tramadol increased to 4 times daily scheduled 7. GI prophylaxis. Pepcid 20 mg orally once every day. 8. DVT prophylaxis. Heparin drip Discharge plan: Home with home care Impression and plan of care have been directed as dictated by the signing physician. Urmila Carey nurse practitioner acting as scribe for signing physician.
[2019-08-16 15:17] LABS: T4, Free (Free Thyroxine) 1.02 ng/dL (0.78-2.19)
[2019-08-17] MEDS: SENNOSIDES-DOCUSATE SODIUM 1 EACH TAB PO SCH (07:59)
[2019-08-17] MEDS: DIGOXIN 250 MCG TAB PO SCH (07:59)
[2019-08-17] MEDS: traMADol 50 MG TAB PO SCH ×4 (07:59→22:08)
[2019-08-17] MEDS: MIDODRINE 5 MG TAB PO SCH ×2 (08:00→16:58)
[2019-08-17] MEDS: TAMSULOSIN 0.4 MG CAP.ER.24H PO SCH ×2 (08:02→20:40)
[2019-08-17] MEDS: AMIODARONE 200 MG TAB PO SCH (08:03)
[2019-08-17] MEDS: APIXABAN 5 MG TAB PO SCH ×2 (08:04→20:40)
[2019-08-17] MEDS: SPIRONOLACTONE 25 MG TAB PO SCH (08:04)
[2019-08-17] MEDS: LISINOPRIL 2.5 MG TAB PO SCH (08:06)
[2019-08-17] MEDS: LIDOCAINE 5% PATCH TOPICAL SCH (08:07)
[2019-08-17] MEDS: DILTIAZEM ORAL 30 MG TAB PO SCH (08:07)
[2019-08-17] MEDS ORDERED: METOPROLOL SUCCINATE (ER) 50 MG TAB.ER.24H PO SCH (09:00)
[2019-08-17] MEDS ORDERED: FUROSEMIDE 40 MG TAB PO SCH (09:00)
--- NOTE | 2019-08-17 13:23 | P.CONS ---
History of Present Illness - Reason for Consult Consult date: 08/17/19 Wound care - History of Present Illness This is a 84-year-old pleasant male who is being seen by the wound care center with nonhealing ulcerations to bilateral lower extremities. Patient states that these ulceration started a few months ago he has been seen for her issues to help with the increased edema. He has had treatment at the [facility]. Patient has increased pain especially to the left lower extremity posterior aspect. The ulcerations occurred after a round of steroids. Patient has not had wound care to the site. Patient is unable to tolerate legs elevated due to the location of the ulcerations. Review of Systems Review Of Systems: Constitutional: No fever, no chills, no night sweats. No weight change. No weakness, fatigue or lethargy. No daytime sleepiness. Integumentary:reports wounds, no lesions. No rash or pruritus. No unusual bruising. No change in hair or nails. Past Medical History Past Medical History: Atrial Fibrillation, Heart Failure Additional Past Medical History / Comment(s): Pt recently had an influenza and was on an antibiotic, recently told he has a "spot" on his R lung-not worked up yet, Afib with RVR in past, no CPAP necessary, kidney stones, psoriasis, reactive airway, urinary frequency. History of Any Multi-Drug Resistant Organisms: None Reported Past Surgical History: Cardiac Ablation, Joint Replacement, Orthopedic Surgery Additional Past Surgical History / Comment(s): cardiac ablation X2, kidney surgery 1954, iron knee, iron hip, Cardioversionx4 chip right shoulder, loss finger on left hand Past Anesthesia/Blood Transfusion Reactions: No Reported Reaction Past Psychological History: No Psychological Hx Reported Additional Psychological History / Comment(s): Pt resides with his spouse of 58 yrs. He is independent. Smoking Status: Current some day smoker Past Alcohol Use History: None Reported Additional Past Alcohol Use History / Comment(s): Patient smoked a pipe for 7 years and quit 40 years ago. No alcohol use, no marijuana or illicit drug use. Past Drug Use History: None Reported - Past Family History Mother Family Medical History: Cancer Additional Family Medical History / Comment(s): Mother at age 82 of lung cancer. Father Family Medical History: Cancer Additional Family Medical History / Comment(s): Father at age 80 of prostrate cancer. Brother(s) Family Medical History: Cancer Additional Family Medical History / Comment(s): Patient has a total of 6 brothers. One brother with history of atrial fibrillation and kidney cancer, second brother with valvular heart disease, third brother with Parkinson's. Daughter(s) Additional Family Medical History / Comment(s): Patient has 3 children and one daughter from complications from obesity. Other 2 children have no major medical problems. Medications and Allergies Home Medications Medication Instructions Recorded Confirmed Type Tamsulosin HCl [Flomax] 0.4 mg PO BID 07/12/14 08/14/19 History Acetaminophen Tab [Tylenol Tab] 1,000 mg PO Q8HR PRN 08/14/19 08/14/19 History Aspirin EC [Ecotrin Low Dose] 81 mg PO DAILY 08/14/19 08/14/19 History Digoxin [Digitek] 125 mcg PO DAILY 08/14/19 08/14/19 History Digoxin [Digitek] 250 mcg PO DAILY 08/14/19 08/14/19 History Furosemide [Lasix] 40 mg PO DAILY@1400 08/14/19 08/14/19 History Furosemide [Lasix] 80 mg PO QAM 08/14/19 08/14/19 History Lidocaine 5% Patch [Lidoderm] 1 patch TOPICAL DAILY 08/14/19 08/14/19 History Lisinopril [Zestril] 2.5 mg PO DAILY 08/14/19 08/14/19 History Melatonin 6 mg PO HS 08/14/19 08/14/19 History Metolazone [Zaroxolyn] 2.5 mg PO DAILY 08/14/19 08/14/19 History Metoprolol Succinate (ER) [Toprol 25 mg PO DAILY@1700 08/14/19 08/14/19 History Xl] Midodrine HCl 5 mg PO BID 08/14/19 08/14/19 History traMADol HCL [Ultram] 50 mg PO Q6HR PRN 08/14/19 08/14/19 History Apixaban [Eliquis] 5 mg PO BID #60 tab 08/16/19 Rx Allergies Allergy/AdvReac Type Severity Reaction Status Date / Time isosorbide mononitrate Allergy Unknown Verified 08/14/19 14:52 [From Imdur] Penicillins Allergy Rash/Hives Verified 08/14/19 14:52 albuterol [From Ventolin HFA] AdvReac Rapid Verified 08/14/19 14:52 Heart Rate amiodarone HCl AdvReac LUNGS/EYE Verified 08/14/19 14:52 [From Cordarone] PROBLEMS codeine AdvReac Nausea & Verified 08/14/19 14:52 Vomiting enalapril maleate AdvReac Cough Verified 08/14/19 14:52 [From Vasotec] enalaprilat dihydrate AdvReac Cough Verified 08/14/19 14:52 [From Vasotec] hydromorphone HCl AdvReac Nausea & Verified 08/14/19 14:52 [From Dilaudid] Vomiting loratadine [From Claritin] AdvReac Rapid Verified 08/14/19 14:52 Heart Rate morphine AdvReac Nausea & Verified 08/14/19 14:52 Vomiting procainamide HCl AdvReac "FLUID ON Verified 08/14/19 14:52 [From Pronestyl] HEART" tetanus toxoid, adsorbed AdvReac "JOINT Verified 08/14/19 14:52 STIFFNESS" Physical Exam Vitals: Vital Signs Temp Pulse Resp BP Pulse Ox 08/17/19 12:00 97.6 F 108 H 17 111/59 97 08/17/19 08:00 101 H 14 08/17/19 07:48 96.5 F L 101 H 14 102/59 98 08/17/19 04:00 98 F 119 H 18 115/62 94 L 08/17/19 00:00 97.3 F L 113 H 18 104/61 95 08/16/19 20:00 97.3 F L 113 H 18 113/64 95 08/16/19 16:00 98.3 F 108 H 16 92/60 97 Intake and Output 08/16/19 08/17/19 08/17/19 22:59 06:59 14:59 Intake Total 200 420 Output Total 400 800 300 Balance -200 -800 120 Intake: Oral 200 420 Output: Urine 400 800 300 Other: Voiding Method Urinal Urinal Urinal # Voids 2 Weight 110 kg Physical exam: General Appearance: Alert, cooperative, no distress, appears stated age. Skin: Left lower extremity anterior aspect ulceration wound bed shows minimal granulation, Slough and exudates seen fat layer exposed, no tunneling noted. Left dorsal foot ulceration with fat layer exposed, Slough noted minimal granu lation. Right lower extremity anterior aspect fat layer exposed no tunneling or undermining noted. Minimal granulation was Slough and exudates seen. Right dorsal foot fat layer exposed minimal granulation with slough noted all other Skin color, texture, tugor normal, no rashes or lesions. 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 Change Saturday. May change outer dressing if soiled as needed. Apply zinc barrier cream to dorsal bilateral feet cover with dry gauze rolled gauze and secure with paper tape. Instructed patient to keep legs elevated. Discussed with patient the need for outpatient wound care and/or continue with wound care with home care. Discussed with patient the need for circaids once ulcerations are healed to assist with edema to bilateral lower extremities. Patient verbalized understanding. Thank you kindly for the consultation. Any questions please contact the wound care center DNP note has been reviewed and discussed with Dr. Luevano and the impression and plan of care has been directed as dictated.
--- NOTE | 2019-08-17 14:15 | P.PN ---
Subjective Progress Note Date: 08/17/19 This is a pleasant 84-year-old gentleman with history of chronic atrial fibrillation, sleep apnea, chronic diastolic congestive heart failure, prior ablation and cardioversion, admitted to the hospital with congestive heart failure exacerbation and atrial fibrillation with rapid ventricular response. Patient continues to be in atrial fibrillation today his heart rate is in the 90s. His echo was performed, they were unable to determine the LV function because of rapid rate. We will have them repeat an echo today, limited study, to assess LV function now that the heart rate is much more stable. Blood pressure 110/60. White blood cell count 7.1, hemoglobin 11.1, platelet count 181. Sodium 135, potassium 3.8, BUN 61, creatinine 0.9. TSH level 5.2 free T4 1. Objective - Vital Signs Vital signs: Vital Signs Temp 97.6 F 08/17/19 12:00 Pulse 108 H 08/17/19 12:00 Resp 17 08/17/19 12:00 BP 111/59 08/17/19 12:00 Pulse Ox 97 08/17/19 12:00 Intake & Output 08/16/19 08/17/19 08/17/19 18:59 06:59 18:59 Intake Total 764.808 420 Output Total 400 1200 300 Balance 364.808 -1200 120 Weight 110 kg Intake: Intake, IV Titration 84.808 Amount Heparin Sod,Pork in 0.45% 84.808 NaCl 25,000 unit In 0.45 % NaCl 1 250ml.bag @ 9.26 UNITS/KG/HR 9.997 mls/hr IV .Q24H [facility] Rx#: [id number] Oral 680 420 Output: Urine 400 1200 300 Other: Voiding Method Urinal Urinal Urinal # Voids 2 - Exam Gen: This is an 84-year-old male. He is sitting up in a chair and appears to be comfortable and in no acute distress. No respiratory distress is noted. Lesions is at bedside. HEENT: Head is atraumatic, normocephalic. Pupils equal, round. Sclerae is anicteric. NECK: Supple. No JVD. No lymphadenopathy. No thyromegaly. LUNGS: Clear to auscultation. No wheezes or rhonchi. No intercostal retractions. HEART: Irregularly irregular rate and rhythm. Systolic murmur. ABDOMEN: Soft. Bowel sounds are present. No masses. No tenderness. EXTREMITIES: Bilateral peripheral edema. No calf tenderness. Multiple lower extremity wounds. Please see nursing documentation and pictures for details. NEUROLOGICAL: Patient is awake, alert and oriented x3. Cranial nerves 2 through 12 are grossly intact. - Labs CBC & Chem 7: 08/16/19 05:45 08/16/19 05:45 Labs: Abnormal Lab Results - Last 24 Hours (Table) 08/16/19 Range/Units 05:45 TSH 5.290 H (0.465-4.680) mIU/L Assessment and Plan Plan: Assessment and Plan: 1. Chronic persistent Atrial fibrillation 2. Obstructive sleep apnea. 3. Hypertension. 4. Benign prostatic hypertrophy. 5. Chronic lower extremity vascular ulcers. #6 acute on chronic renal failure #7 chronic congestive heart failure Plan Heart rate today is under much better control, we'll repeat the echocardiogram with Doppler study to assess the LV function. Further recommendations to follow. DNP note has been reviewed, I agree with a documented findings and plan of care. Patient was seen and examined.
--- NOTE | 2019-08-17 14:44 | P.PN ---
Subjective Progress Note Date: 08/17/19 On this is an 84-year-old male patient of Dr. Mosqueda with past medical history of paroxysmal atrial fibrillation status post cardiac ablation in 2007 as well as cardioversions a couple times since then, hypertension, osteoarthritis, obstructive sleep apnea but not currently on a CPAP, psoriasis, hard of hearing. Patient's gives history that patient wasn't [facility] one month ago and was on a heparin drip and Lasix drip was treated for heart failure. He had a hematoma develop on the left hip without any fall and it was causing difficulty walking ended up going to rehab at [facility]. While he was at [facility] she states that his kidney function was affected. On Saturday he went home and starting on Saturday he was feeling bad. He saw cardiology in the office and he was started on digoxin which she read see one dose at home and then he was called on Saturday that his lab work was abnormal, blood pressure was on the lower side anyway and patient was told to come into the hospital. Patient has not been on any recent steroids. He denies any blood or tarry stools. He denies any chest pain, palpitations. He states he feels weak. He does have chronic lower extremity wounds. Patient came into [facility] for evaluation. He was afebrile, initial blood pressure 86/45, heart rate 67. EKG was atrial fibrillation with RVR at 158. Patient was started on Cardizem bolus and drip. CBC within normal limits, BUN 112, creatinine 1.69, sodium 134, potassium 3.3, chloride 94, CO2 31, blood sugar 115. Magnesium 2.9. Troponins negative on 3 draws. Triglycerides 81, cholesterol 165, LDL 104, HDL 45. Patient was ad mitted to the cardiac stepdown unit and cardiology consult requested. 08/16: Patient remains in A. fib with RVR with heart rate running [id number] up to 144 intermittently. He he is currently on heparin drip and Cardizem 30 mg 3 times daily oral. Cardiology has transitioned heparin to eliquis and resumed on Metoprolol XL increased dose to 50 mg daily, 1 dose of Lopressor 25 mg, started amiodarone 400 mg twice daily and Digoxin 250 g oral daily. Eliquis has been prescribed to the patient's pharmacy to check coverage Patient has been afebrile, blood pressure 105/55, pulse ox 95% on room air. WBC 7.3, hemoglobin 11.1, platelet count 181. Sodium 135, potassium 3.8, chloride 99, CO2 36, BUN 1261 and creatinine 0.94, blood sugar 114. Patient is complaining of pain pill tramadol not holding him and will increase to this to 4 times daily. 08/17: TSH 5.290 and patient started on levothyroxine 25 g daily. Patient has lower extremity edema and significant drainage from the right leg. Lasix will be increased to 40 mg oral twice daily and midodrine increased to 10 mg three times daily. Cardiology has increased frequency of Toprol-XL 50 mg twice daily and added spironolactone to start tomorrow. Patient is also followed by wound care. Wound culture to be obtained. He has been afebrile, heart rate 108, blood pressure 111/59, pulse ox 97% on room air. Review of Systems Constitutional: Denies anorexia, Denies chills, Denies fatigue, Denies fever, Denies lethargy, Denies malaise, Denies poor appetite, Denies sweats, Denies weight loss Ears, nose, mouth and throat: Denies headache, Denies nasal congestion, Denies nasal discharge, Denies sore throat, Denies vertigo Cardiovascular: Denies chest pain, Denies decreased exercise tolerance, Denies dyspnea on exertion, Denies edema, Denies leg edema, Denies lightheadedness, Denies shortness of breath, Denies syncope Respiratory: Denies cough with sputum, Reports sleep apnea, Denies dyspnea, Denies excessive sputum, Denies hemoptysis, Denies home oxygen Gastrointestinal: Denies abdominal pain, Denies diarrhea, Denies loss of appetite, Denies nausea, Denies vomiting Genitourinary: Denies dysuria, Denies urinary retention Musculoskeletal: Denies frequent falls, Denies gait dysfunction, Denies muscle weakness, Denies myalgias Integumentary: Denies pruritus, Denies rash, Denies wounds Neurological: Denies change in mentation, Denies change in speech, Denies double vision, Denies numbness, Denies vertigo, Denies weakness Psychiatric: Denies anxiety, Denies depression Endocrine: Denies fatigue, Denies weight change Objective - Vital Signs Vital signs: Vital Signs Temp 97.6 F 08/17/19 12:00 Pulse 108 H 08/17/19 12:00 Resp 17 08/17/19 12:00 BP 111/59 08/17/19 12:00 Pulse Ox 97 08/17/19 12:00 Intake & Output 08/16/19 08/17/19 08/17/19 18:59 06:59 18:59 Intake Total 764.808 180 Output Total 400 1200 Balance 364.808 -1200 180 Weight 110 kg Intake: Intake, IV Titration 84.808 Amount Heparin Sod,Pork in 0.45% 84.808 NaCl 25,000 unit In 0.45 % NaCl 1 250ml.bag @ 9.26 UNITS/KG/HR 9.997 mls/hr IV .Q24H [facility] Rx#: [id number] Oral 680 180 Output: Urine 400 1200 Other: Voiding Method Urinal Urinal Urinal # Voids 2 - Exam Gen: This is an 84-year-old male. He is sitting up in a chair and appears to be comfortable and in no acute distress. No respiratory distress is noted. Lesions is at bedside. HEENT: Head is atraumatic, normocephalic. Pupils equal, round. Sclerae is an icteric. NECK: Supple. No JVD. No lymphadenopathy. No thyromegaly. LUNGS: Clear to auscultation. No wheezes or rhonchi. No intercostal retractions. HEART: Irregularly irregular rate and rhythm. Systolic murmur. ABDOMEN: Soft. Bowel sounds are present. No masses. No tenderness. EXTREMITIES: No pedal edema. No calf tenderness. Multiple lower extremity wounds and serous weeping. Please see nursing documentation and pictures for details. NEUROLOGICAL: Patient is awake, alert and oriented x3. Cranial nerves 2 through 12 are grossly intact. - Labs CBC & Chem 7: 08/16/19 05:45 08/16/19 05:45 Labs: Abnormal Lab Results - Last 24 Hours (Table) 08/16/19 Range/Units 05:45 TSH 5.290 H (0.465-4.680) mIU/L Assessment and Plan Plan: 1. Atrial fibrillation with RVR. Continue Toprol-XL 50 mg increased to twice daily and cardiology added spironolactone to start tomorrow. Digoxin and Cardizem discontinued. Continue eliquis 5 mg twice daily. 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 2. Paroxysmal atrial fibrillation. Continue as above. 3. Obstructive sleep apnea. Patient will need to use the CPAP. 4. Hypertension. Continue Cardizem, Lasix. Patient currently on midodrine twice daily 5. Benign prostatic hypertrophy. Monitor for urinary retention. Continue Flomax 0.4 mg twice daily. 6. 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 Consult with wound care today. Continue local wound care. Lasix 40 mg oral twice daily and midodrine increased to 10 mg 3 times daily 7. GI prophylaxis. Pepcid 20 mg orally once every day. 8. DVT prophylaxis. Eliquis Discharge plan: Home with [facility] Impression and plan of care have been directed as dictated by the signing physician. Urmila Carey nurse practitioner acting as scribe for signing physician.
--- NOTE | 2019-08-17 15:53 | P.CRDCN ---
History of Present Illness History of present illness: This is Keira Crowell PA-C dictating an EP consult on this patient The patient was interviewed and examined by me as well as by Dr. Lima Case discussed with Dr. Lima and he agrees with the plan of care HPI Patient is an 84-year-old male with a history of chronic diastolic CHF and atrial fibrillation who was sent to the emergency department by his hand decorator Dr. Martinez for evaluation of abnormal labs. Patient was previously hospitalized at the [facility] for treatment of CHF after he had a cough that did not resolve after 2 months of antibiotics and steroids. According to his she was told he had a reduced LV systolic function there. We do not have the reports available. He was previously on amiodarone but had to discontinue it due to ophthalmologic side effects a few months ago. He was also started on anticoagulation at the [facility] and developed a hematoma in his hip so that was stopped as well according to the patient's . He is also being treated for ulcers of his bilateral lower extremities. Most recently, he was at Dr. Martinez's office and was found to have abnormal labs so he was sent to the emergency department for further evaluation. He was found to have an acute kidney injury suspected to be due to overdiuresis. EKG upon presentation showed atrial fibrillation with RVR, rates in the 150s. We have been consulted for evaluation and treatment of his atrial fibrillation and consideration for permanent pacemaker implantation and subsequent AV node ablation. He has been started on Cardizem and digoxin for rate control. His rates have been in the 100s. He was just started on eliquis. Patient seen and examined sitting up in his chair. ROS: No fevers, chills or rigors, no cough, phlegm or expectoration, no nausea, vomiting or diarrhea, no hematuria, dysuria, no musculoskeletal complaints, no strokes or seizures, Positive for wounds on the bilateral lower extremities EXAMINATION: Patient is afebrile, pulse in the 100s, respirations 17, blood pressure 111/59, oxygen saturation 97% on room air Patient seen and examined resting in the chair, in no acute distress Bilateral breath sounds diminished at the bases Heart is irregularly irregular, tachycardic, no audible murmurs Minimally elevated JVD Left lower extremity dressing intact, right lower extremity erythematous and edematous with weeping wound on the right martinez and foot REVIEW OF LABS, ECG & MEDICAL DATA WBC 7.1, hemoglobin 11.1, platelets 181, potassium 3.8, BUN 61, creatinine 0.94 Troponin negative 3 TSH elevated at 5.29 Echocardiogram showed moderate concentric ventricular hypertrophy, EF was unable to be determined due to tachycardia IMPRESSION / ASSESSMENT: Atrial fibrillation with RVR, status post PVI cryoablation in 2018, developed side effects on amiodarone, rates in the 100s on metoprolol 50 mg daily, digoxin, and Cardizem 30 mg 3 times daily, he was just started on Eliquis Acute kidney injury due to overdiuresis, BUN and creatinine improving Chronic diastolic CHF Bilateral lower extremity ulcers Hypotension requiring Midodrin Abnormal TSH PLAN: Stop digoxin and Cardizem and increase metoprolol to 50 mg twice daily for rate control Increase spironolactone to 25 mg daily Start sotalol 80 mg twice daily recommend BRIAN and electrical cardioversion and reassess LV function in sinus rhythm Monitor renal function closely on sotalol monitor QT post-cardioversion on sotalol Avoid other QT prolonging drugs After cardioversion may decrease dose of metoprolol depending on his blood pressure Obtain records from [facility] would hold of on device implantation at this time due to increased risk of infection until his lower extremity ulcers heal Past Medical History Past Medical History: Atrial Fibrillation, Heart Failure Additional Past Medical History / Comment(s): Pt recently had an influenza and was on an antibiotic, recently told he has a "spot" on his R lung-not worked up yet, Afib with RVR in past, no CPAP necessary, kidney stones, psoriasis, reactive airway, urinary frequency. History of Any Multi-Drug Resistant Organisms: None Reported Past Surgical History: Cardiac Ablation, Joint Replacement, Orthopedic Surgery Additional Past Surgical History / Comment(s): cardiac ablation X2, kidney surgery 1955, iron knee, iron hip, Cardioversionx4 chip right shoulder, loss finger on left hand Past Anesthesia/Blood Transfusion Reactions: No Reported Reaction Past Psychological History: No Psychological Hx Reported Additional Psychological History / Comment(s): Pt resides with his spouse of 58 yrs. He is independent. Smoking Status: Current some day smoker Past Alcohol Use History: None Reported Additional Past Alcohol Use History / Comment(s): Patient smoked a pipe for 7 years and quit 40 years ago. No alcohol use, no marijuana or illicit drug use. Past Drug Use History: None Reported - Past Family History Mother Family Medical History: Cancer Additional Family Medical History / Comment(s): Mother at age 82 of lung cancer. Father Family Medical History: Cancer Additional Family Medical History / Comment(s): Father at age 80 of prostrate cancer. Brother(s) Family Medical History: Cancer Additional Family Medical History / Comment(s): Patient has a total of 6 brothers. One brother with history of atrial fibrillation and kidney cancer, second brother with valvular heart disease, third brother with Parkinson's. Daughter(s) Additional Family Medical History / Comment(s): Patient has 3 children and one daughter from complications from obesity. Other 2 children have no major medical problems. Medications and Allergies Home Medications Medication Instructions Recorded Confirmed Type Tamsulosin HCl [Flomax] 0.4 mg PO BID 07/12/14 08/14/19 History Acetaminophen Tab [Tylenol Tab] 1,000 mg PO Q8HR PRN 08/14/19 08/14/19 History Aspirin EC [Ecotrin Low Dose] 81 mg PO DAILY 08/14/19 08/14/19 History Digoxin [Digitek] 125 mcg PO DAILY 08/14/19 08/14/19 History Digoxin [Digitek] 250 mcg PO DAILY 08/14/19 08/14/19 History Furosemide [Lasix] 40 mg PO DAILY@1400 08/14/19 08/14/19 History Furosemide [Lasix] 80 mg PO QAM 08/14/19 08/14/19 History Lidocaine 5% Patch [Lidoderm] 1 patch TOPICAL DAILY 08/14/19 08/14/19 History Lisinopril [Zestril] 2.5 mg PO DAILY 08/14/19 08/14/19 History Melatonin 6 mg PO HS 08/14/19 08/14/19 History Metolazone [Zaroxolyn] 2.5 mg PO DAILY 08/14/19 08/14/19 History Metoprolol Succinate (ER) [Toprol 25 mg PO DAILY@1700 08/14/19 08/14/19 History Xl] Midodrine HCl 5 mg PO BID 08/14/19 08/14/19 History traMADol HCL [Ultram] 50 mg PO Q6HR PRN 08/14/19 08/14/19 History Apixaban [Eliquis] 5 mg PO BID #60 tab 08/16/19 Rx Allergies Allergy/AdvReac Type Severity Reaction Status Date / Time isosorbide mononitrate Allergy Unknown Verified 08/14/19 14:52 [From Imdur] Penicillins Allergy Rash/Hives Verified 08/14/19 14:52 albuterol [From Ventolin HFA] AdvReac Rapid Verified 08/14/19 14:52 Heart Rate amiodarone HCl AdvReac LUNGS/EYE Verified 08/14/19 14:52 [From Cordarone] PROBLEMS codeine AdvReac Nausea & Verified 08/14/19 14:52 Vomiting enalapril maleate AdvReac Cough Verified 08/14/19 14:52 [From Vasotec] enalaprilat dihydrate AdvReac Cough Verified 08/14/19 14:52 [From Vasotec] hydromorphone HCl AdvReac Nausea & Verified 08/14/19 14:52 [From Dilaudid] Vomiting loratadine [From Claritin] AdvReac Rapid Verified 08/14/19 14:52 Heart Rate morphine AdvReac Nausea & Verified 08/14/19 14:52 Vomiting procainamide HCl AdvReac "FLUID ON Verified 08/14/19 14:52 [From Pronestyl] HEART" tetanus toxoid, adsorbed AdvReac "JOINT Verified 08/14/19 14:52 STIFFNESS" Physical Exam Vitals: Vital Signs Temp Pulse Resp BP Pulse Ox 08/17/19 12:00 97.6 F 108 H 17 111/59 97 08/17/19 08:00 101 H 14 08/17/19 07:48 96.5 F L 101 H 14 102/59 98 08/17/19 04:00 98 F 119 H 18 115/62 94 L 08/17/19 00:00 97.3 F L 113 H 18 104/61 95 08/16/19 20:00 97.3 F L 113 H 18 113/64 95 08/16/19 16:00 98.3 F 108 H 16 92/60 97 Intake and Output 08/16/19 08/17/19 08/17/19 22:59 06:59 14:59 Intake Total 200 420 Output Total 400 800 300 Balance -200 -800 120 Intake: Oral 200 420 Output: Urine 400 800 300 Other: Voiding Method Urinal Urinal Urinal # Voids 2 Weight 110 kg Results 08/16/19 05:45 08/16/19 05:45 Current Medications Generic Name Dose Route Start Last Admin Trade Name Freq PRN Reason Stop Dose Admin Acetaminophen 650 mg 08/14/19 16:41 08/16/19 04:06 Tylenol Tab PO 650 mg Q6HR PRN Administration Fever and/ or Pain Apixaban 5 mg 08/16/19 09:30 08/17/19 08:04 Eliquis PO 5 mg BID [facility] Administration Furosemide 40 mg 08/17/19 16:00 Lasix PO BID@0900,1600 [facility] Levothyroxine Sodium 25 mcg 08/18/19 06:30 Synthroid PO DAILY@0630 [facility] Lidocaine 1 patch 08/15/19 09:00 08/17/19 08:07 Lidoderm TOPICAL 1 patch DAILY [facility] Administration Lisinopril 2.5 mg 08/15/19 09:00 08/17/19 08:06 Zestril PO 2.5 mg DAILY [facility] Administration Melatonin 6 mg 08/14/19 22:30 08/15/19 00:29 Melatonin PO 6 mg HS PRN Administration Insomnia Metoprolol Succinate 50 mg 08/17/19 21:00 Toprol Xl PO BID [facility] Midodrine 10 mg 08/17/19 17:30 Proamatine PO AC-TID [facility] Nitroglycerin 0.4 mg 08/14/19 13:26 Nitrostat SUBLINGUAL Q5M PRN Chest Pain Senna/Docusate Sodium 2 each 08/16/19 09:45 08/17/19 07:59 Senokot-S PO 2 each DAILY [facility] Administration Spironolactone 25 mg 08/18/19 09:00 Aldactone PO DAILY [facility] Tamsulosin HCl 0.4 mg 08/15/19 09:00 08/17/19 08:02 Flomax PO 0.4 mg BID [facility] Administration Tramadol HCl 50 mg 08/16/19 13:00 08/17/19 12:45 Ultram PO 50 mg QID [facility] Administration Intake and Output 08/16/19 08/17/19 08/17/19 22:59 06:59 14:59 Intake Total 200 420 Output Total 400 800 300 Balance -200 -800 120 Intake: Oral 200 420 Output: Urine 400 800 300 Other: Voiding Method Urinal Urinal Urinal # Voids 2 Weight 110 kg 08/16/19 05:45 08/16/19 05:45
[2019-08-17] MEDS: FUROSEMIDE 40 MG TAB PO SCH (16:59)
[2019-08-17] MEDS: SODIUM CHLORIDE 0.9% 1,000 ML IV SCH (17:58)
--- NOTE | 2019-08-17 19:00 | ECHOF ---
Referral Reason:limited...assess lvf MEASUREMENTS -------- HEIGHT: 182.9 cm WEIGHT: 109.3 kg BP: RAP: 5.00 mmHg RVSP: 26.68 mmHg FINDINGS -------- Resting tachycardia (HR>100bpm). Limited Study Overall left ventricular systolic function is moderate-severely impaired with, an EF between 30 - 35 %. Mild tricuspid regurgitation present. Right ventricular systolic pressure is normal at < 35 mmHg. There is no pericardial effusion. CONCLUSIONS -------- 1. Resting tachycardia (HR>100bpm). 2. Limited Study 3. Overall left ventricular systolic function is moderate-severely impaired with, an EF between 30 - 35 %. 4. Mild tricuspid regurgitation present. 5. Right ventricular systolic pressure is normal at < 35 mmHg. 6. There is no pericardial effusion. DIGITAL EXPERIENCE MANAGER: Juanita Rueda RDCS
[2019-08-17] MEDS: ACETAMINOPHEN TAB 325 MG TAB PO PRN (20:41)
[2019-08-17] MEDS: METOPROLOL SUCCINATE (ER) 50 MG TAB.ER.24H PO SCH (20:41)
[2019-08-17] MEDS ORDERED: SOTALOL 80 MG TAB PO SCH (21:00)
[2019-08-18] MEDS: LEVOTHYROXINE 25 MCG TAB PO SCH (06:05)
[2019-08-18] MEDS: MIDODRINE 5 MG TAB PO SCH ×3 (06:05→17:06)
[2019-08-18] MEDS: ACETAMINOPHEN TAB 325 MG TAB PO PRN ×2 (06:07→13:39)
[2019-08-18 06:51] LABS: HCT 31.7 % (39.0-53.0); HGB 10.4 gm/dL (13.0-17.5); MCH 34.2 pg (25.0-35.0); MCHC 32.7 g/dL (31.0-37.0); MCV 104.5 fL (80.0-100.0); Macrocytosis Moderate; Mean Platelet Volume 7.7; Platelet Count 184 k/uL (150-450); RBC 3.04 m/uL (4.30-5.90); RDW 15.5 % (11.5-15.5); WBC 7.5 k/uL (3.8-10.6)
[2019-08-18 07:11] LABS: Calcium 8.6 mg/dL (8.4-10.2); Potassium 4.1 mmol/L (3.5-5.1)
[2019-08-18] MEDS: LIDOCAINE 5% PATCH TOPICAL SCH (08:47)
[2019-08-18] MEDS: FUROSEMIDE 40 MG TAB PO SCH ×2 (08:49→17:06)
[2019-08-18] MEDS: APIXABAN 5 MG TAB PO SCH ×2 (08:49→20:37)
[2019-08-18] MEDS: SPIRONOLACTONE 25 MG TAB PO SCH (08:50)
[2019-08-18] MEDS: SENNOSIDES-DOCUSATE SODIUM 1 EACH TAB PO SCH (08:50)
[2019-08-18] MEDS: TAMSULOSIN 0.4 MG CAP.ER.24H PO SCH ×2 (08:50→20:36)
[2019-08-18] MEDS: SOTALOL 80 MG TAB PO SCH ×2 (08:50→20:36)
[2019-08-18] MEDS: METOPROLOL SUCCINATE (ER) 50 MG TAB.ER.24H PO SCH ×2 (08:50→20:36)
[2019-08-18] MEDS: LISINOPRIL 2.5 MG TAB PO SCH (08:50)
[2019-08-18] MEDS: traMADol 50 MG TAB PO SCH ×4 (08:50→22:16)
--- NOTE | 2019-08-18 11:37 | P.PN ---
Subjective Progress Note Date: 08/18/19 On this is an 84-year-old male patient of Dr. Mosqueda with past medical history of paroxysmal atrial fibrillation status post cardiac ablation in 2007 as well as cardioversions a couple times since then, hypertension, osteoarthritis, obstructive sleep apnea but not currently on a CPAP, psoriasis, hard of hearing. Patient's gives history that patient wasn't [facility] one month ago and was on a heparin drip and Lasix drip was treated for heart failure. He had a hematoma develop on the left hip without any fall and it was causing difficulty walking ended up going to rehab at [facility]. While he was at [facility] she states that his kidney function was affected. On Saturday he went home and starting on Saturday he was feeling bad. He saw cardiology in the office and he was started on digoxin which she read see one dose at home and then he was called on Saturday that his lab work was abnormal, blood pressure was on the lower side anyway and patient was told to come into the hospital. Patient has not been on any recent steroids. He denies any blood or tarry stools. He denies any chest pain, palpitations. He states he feels weak. He does have chronic lower extremity wounds. Patient came into [facility] for evaluation. He was afebrile, initial blood pressure 86/45, heart rate 67. EKG was atrial fibrillation with RVR at 158. Patient was started on Cardizem bolus and drip. CBC within normal limits, BUN 112, creatinine 1.69, sodium 134, potassium 3.3, chloride 94, CO2 31, blood sugar 115. Magnesium 2.9. Troponins negative on 3 draws. Triglycerides 81, cholesterol 165, LDL 104, HDL 45. Patient was ad mitted to the cardiac stepdown unit and cardiology consult requested. 08/16: Patient remains in A. fib with RVR with heart rate running -427 up to 144 intermittently. He he is currently on heparin drip and Cardizem 30 mg 3 times daily oral. Cardiology has transitioned heparin to eliquis and resumed on Metoprolol XL increased dose to 50 mg daily, 1 dose of Lopressor 25 mg, started amiodarone 400 mg twice daily and Digoxin 250 g oral daily. Eliquis has been prescribed to the patient's pharmacy to check coverage Patient has been afebrile, blood pressure 105/55, pulse ox 95% on room air. WBC 7.3, hemoglobin 11.1, platelet count 181. Sodium 135, potassium 3.8, chloride 99, CO2 36, BUN 1261 and creatinine 0.94, blood sugar 114. Patient is complaining of pain pill tramadol not holding him and will increase to this to 4 times daily. 08/17: TSH 5.290 and patient started on levothyroxine 25 g daily. Patient has lower extremity edema and significant drainage from the right leg. Lasix will be increased to 40 mg oral twice daily and midodrine increased to 10 mg three times daily. Cardiology has increased frequency of Toprol-XL 50 mg twice daily and added spironolactone to start tomorrow. Patient is also followed by wound care. Wound culture to be obtained. He has been afebrile, heart rate 108, blood pressure 111/59, pulse ox 97% on room air. 08/18: Limited echocardiogram revealed EF between 30 and 35%. On consult with Dr. Lima performed yesterday for treatment of atrial fibrillation and consideration for permanent pacemaker implantation and subsequent AV node ablation. Medication changes were made yesterday by Dr. Lima. Patient's spironolactone was increased to 25 mg daily, sotalol 80 mg twice daily added. Recommend BRIAN electrocardioversion and reassess LV function in sinus rhythm. Monitor renal function closely on sotalol and QT prolongation. After cardioversion, may decrease metoprolol depending on blood pressure. No plan at this point for device implantation. Patient has been afebrile, heart rate running between 104 117, blood pressure 111/60, pulse ox 93% on room air. Repeat blood work reveals a CBC 7.5, hemoglobin 10.4, sodium 133, potassium 4.1, chloride 99, CO2 29, BUN 44 and creatinine 0.92. Patient is scheduled for BRIAN and cardioversion tomorrow. Patient denies any chest pain or shortness of breath, no palpitations. His heart rate remains elevated and he is complaining of nausea today which is new. He has pain in the lower extremities which is been chronic and a uric acid will be checked. Eliquis is $48 per month and patient agrees to the cost. Review of Systems Constitutional: Denies anorexia, Denies chills, Denies fatigue, Denies fever, Denies lethargy, Denies malaise, Denies poor appetite Ears, nose, mouth and throat: Denies headache, Denies nasal congestion, Denies nasal discharge, Denies sore throat, Denies vertigo Cardiovascular: Denies chest pain, Denies decreased exercise tolerance, Denies dyspnea on exertion, Denies edema, Denies leg edema, Denies lightheadedness, Denies shortness of breath, Denies syncope Respiratory: Denies cough with sputum, Reports sleep apnea, Denies dyspnea, Denies excessive sputum, Denies hemoptysis, Denies home oxygen Gastrointestinal: Denies abdominal pain, Denies diarrhea, Denies loss of appetite, reports nausea, Denies vomiting Genitourinary: Denies dysuria, Denies urinary retention Musculoskeletal: Denies frequent falls, Denies gait dysfunction, Denies muscle weakness, Denies myalgias Integumentary: Denies pruritus, Denies rash, Denies wounds Neurological: Denies change in mentation, Denies change in speech, Denies double vision, Denies numbness, Denies vertigo, Denies weakness Psychiatric: Denies anxiety, Denies depression Endocrine: Denies fatigue, Denies weight change Objective - Vital Signs Vital signs: Vital Signs Temp 98.3 F 08/18/19 08:00 Pulse 117 H 08/18/19 08:00 Resp 18 08/18/19 08:00 BP 111/60 08/18/19 08:00 Pulse Ox 93 L 08/18/19 08:00 Intake & Output 08/17/19 08/18/19 08/18/19 18:59 06:59 18:59 Intake Total 780 360 Output Total 800 925 300 Balance -20 -925 60 Weight 115.5 kg Intake: Oral 780 360 Output: Urine 800 925 300 Other: Voiding Method Urinal Urinal Urinal - Exam Gen: This is an 84-year-old male. He is sitting up in a chair and appears to be comfortable and in no acute distress. No respiratory distress is noted. Lesions is at bedside. HEENT: Head is atraumatic, normocephalic. Pupils equal, round. Sclerae is anicteric. NECK: Supple. No JVD. No lymphadenopathy. No thyromegaly. LUNGS: Clear to auscultation. No wheezes or rhonchi. No intercostal retractions. HEART: Irregularly irregular rate and rhythm. Systolic murmur. ABDOMEN: Soft. Bowel sounds are present. No masses. No tenderness. EXTREMITIES: No pedal edema. No calf tenderness. Multiple lower extremity wounds and serous weeping. Please see nursing documentation. NEUROLOGICAL: Patient is awake, alert and oriented x3. Cranial nerves 2 through 12 are grossly intact. - Labs CBC & Chem 7: 08/18/19 05:43 08/18/19 05:43 Labs: Abnormal Lab Results - Last 24 Hours (Table) 08/18/19 08/18/19 Range/Units 05:43 05:43 RBC 3.04 L (4.30-5.90) m/uL Hgb 10.4 L (13.0-17.5) gm/dL Hct 31.7 L (39.0-53.0) % MCV 104.5 H (80.0-100.0) fL Sodium 133 L (137-145) mmol/L BUN 44 H (9-20) mg/dL Microbiology - Last 24 Hours (Table) 08/17/19 17:00 Gram Stain - Preliminary Leg - Left Wound Culture - Preliminary Assessment and Plan Plan: 1. Atrial fibrillation with RVR. Continue eliquis 5 mg twice daily, Sotalol 80 mg twice daily, Toprol XL 50 mg twice daily, aldactone 25 mg daily. BRIAN and el ectrical cardioversion and reassess LV function in sinus rhythm, scheduled for tomorrow. 2. Paroxysmal atrial fibrillation. Continue as above. 3. Obstructive sleep apnea. Patient will need to use the CPAP. 4. Hypertension. Continue Cardizem, Lasix. Patient currently on midodrine twice daily 5. Benign prostatic hypertrophy. Monitor for urinary retention. Continue Flomax 0.4 mg twice daily. 6. 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 Consult with wound care today. Continue local wound care. Lasix 40 mg oral twice daily and midodrine increased to 10 mg 3 times daily 7. GI prophylaxis. Pepcid 20 mg orally once every day. 8. DVT prophylaxis. Eliquis 9. Hypothyroidism. Start levothyroxine 25 mcg daily. Discharge plan: Home with [facility] Impression and plan of care have been directed as dictated by the signing physician. Urmila Carey nurse practitioner acting as scribe for signing physician.
--- NOTE | 2019-08-18 12:32 | P.PN ---
Subjective Progress Note Date: 08/18/19 This is a pleasant 84-year-old gentleman with history of chronic atrial fibrillation, sleep apnea, chronic diastolic congestive heart failure, prior ablation and cardioversion, admitted to the hospital with congestive heart failure exacerbation and atrial fibrillation with rapid ventricular response. Patient continues to be in atrial fibrillation today his heart rate is in the 90s. His echo was performed, they were unable to determine the LV function because of rapid rate. We will have them repeat an echo today, limited study, to assess LV function now that the heart rate is much more stable. Blood pressure 110/60. White blood cell count 7.1, hemoglobin 11.1, platelet count 181. Sodium 135, potassium 3.8, BUN 61, creatinine 0.9. TSH level 5.2 free T4 1. 08/18/2019 Limited echocardiogram with Doppler study was performed which revealed an ejection fraction of 30-35%. Patient was also seen in consultation yesterday by Dr. Tello, there is consideration for possible pacer implantation and subsequent AV node ablation as an outpatient. The Cardizem and Lanoxin were also discontinued, patient is on beta ann as well as sotalol. Patient is scheduled to undergo a BRIAN and cardioversion tomorrow. The LV function will be reassessed once the patient is in normal sinus rhythm. I pressure today 110/60 with a heart rate in the 90s, 93% on room air. White blood cell count 7.5, hemoglobin 10.4, platelet count 184. Sodium 133, potassium 4.1, BUN 44, creatinine 0.9. Objective - Vital Signs Vital signs: Vital Signs Temp 97.8 F 08/18/19 12:00 Pulse 107 H 08/18/19 12:00 Resp 18 08/18/19 12:00 BP 95/54 08/18/19 12:00 Pulse Ox 95 08/18/19 12:00 Intake & Output 08/17/19 08/18/19 08/18/19 18:59 06:59 18:59 Intake Total 780 520 Output Total 800 925 300 Balance - 220 Weight 115.5 kg Intake: IV 160 Sodium Chloride 0.9% 1, 160 000 ml @ 20 mls/hr IV . Q24H [facility] Rx#:[id number] Oral 780 360 Output: Urine 800 925 300 Other: Voiding Method Urinal Urinal Urinal - Exam Gen: This is an 84-year-old male. He is sitting up in a chair and appears to be comfortable and in no acute distress. No respiratory distress is noted. Lesions is at bedside. HEENT: Head is atraumatic, normocephalic. Pupils equal, round. Sclerae is anicteric. NECK: Supple. No JVD. No lymphadenopathy. No thyromegaly. LUNGS: Clear to auscultation. No wheezes or rhonchi. No intercostal retractions. HEART: Irregularly irregular rate and rhythm. Systolic murmur. ABDOMEN: Soft. Bowel sounds are present. No masses. No tenderness. EXTREMITIES: Bilateral peripheral edema. No calf tenderness. Multiple lower extremity wounds. Please see nursing documentation and pictures for details. NEUROLOGICAL: Patient is awake, alert and oriented x3. Cranial nerves 2 through 12 are grossly intact. - Labs CBC & Chem 7: 08/18/19 05:43 08/18/19 05:43 Labs: Abnormal Lab Results - Last 24 Hours (Table) 08/18/19 08/18/19 08/18/19 Range/Units 05:43 05:43 05:43 RBC 3.04 L (4.30-5.90) m/uL Hgb 10.4 L (13.0-17.5) gm/dL Hct 31.7 L (39.0-53.0) % MCV 104.5 H (80.0-100.0) fL Sodium 133 L (137-145) mmol/L BUN 44 H (9-20) mg/dL Uric Acid 10.3 H (3.5-8.5) mg/dL Microbiology - Last 24 Hours (Table) 08/17/19 17:00 Gram Stain - Preliminary Leg - Left Wound Culture - Preliminary Assessment and Plan Plan: Assessment and Plan: 1. Chronic persistent Atrial fibrillation 2. Obstructive sleep apnea. 3. Hypertension. 4. Benign prostatic hypertrophy. 5. Chronic lower extremity vascular ulcers. #6 acute on chronic renal failure #7 chronic congestive heart failure Plan Patient's Cardizem and Lanoxin were discontinued yesterday, we will continue the beta ann along with sotalol. Patient is scheduled tomorrow to undergo BRIAN and cardioversion. LV function will then be reassessed once the patient is in normal sinus rhythm. DNP note has been reviewed, I agree with a documented findings and plan of care. Patient was seen and examined.
[2019-08-18] MEDS ORDERED: LIDOCAINE 1% 20 ML VIAL (10MG/ML) FOR IV START INTRADERMA PRN (13:17)
[2019-08-18] MEDS: LACTATED RINGERS 1,000 ML IV SCH (13:40)
--- NOTE | 2019-08-18 14:30 | P.CONS ---
<Urmila Carey Lida - Last Filed: 08/18/19 14:23> History of Present Illness - Reason for Consult Consult date: 08/18/19 Chronic lower extremity wounds - History of Present Illness This is an 84-year-old male patient with past medical history of paroxysmal atrial fibrillation status post cardiac ablation in 2007 as well as cardioversions a couple times since then, hypertension, osteoarthritis, obstructive sleep apnea but not currently on a CPAP, psoriasis, hard of hearing. Patient's gives history that patient was at [facility] one month ago and was on a heparin drip and Lasix drip was treated for heart failure. He had a hematoma develop on the left hip without any fall and it was causing difficulty walking ended up going to rehab at [facility]. While he was at [facility] she states that his kidney function was affected. On Saturday, he went home and starting on Saturday he was feeling bad. He saw cardiology in the office and he was started on digoxin which she read see one dose at home and then he was called on Saturday that his lab work was abnormal, blood pressure was on the lower side anyway and patient was told to come into the hospital. He was admitted to the cardiac stepdown unit for atrial fibrillation with RVR, scheduled for BRIAN and cardioversion tomorrow. Patient also has chronic lower extremity wounds and concern today was that this was worsening with possible cellulitis. Review of Systems Constitutional: Denies anorexia, Denies chills, reports fatigue, Denies fever, Denies lethargy, Denies malaise, Denies poor appetite Ears, nose, mouth and throat: Denies headache, Denies nasal congestion, Denies nasal discharge, Denies sore throat, Denies vertigo Cardiovascular: Denies chest pain, Denies decreased exercise tolerance, Denies dyspnea on exertion, Denies edema, Denies leg edema, Denies lightheadedness, Denies shortness of breath, Denies syncope Respiratory: Denies cough with sputum, Reports sleep apnea, Denies dyspnea, Denies excessive sputum, Denies hemoptysis, Denies home oxygen Gastrointestinal: Denies abdominal pain, Denies diarrhea, Denies loss of appetite, reports nausea, Denies vomiting Genitourinary: Denies dysuria, Denies urinary retention Musculoskeletal: Denies frequent falls, reports gait dysfunction, reports muscle weakness, Denies myalgias Integumentary: Denies pruritus, Denies rash, reports chronic ulcerations wounds Neurological: Denies change in mentation, Denies change in speech, Denies double vision, Denies numbness, Denies vertigo, Denies weakness Psychiatric: Denies anxiety, Denies depression Endocrine: Denies fatigue, Denies weight change Past Medical History Past Medical History: Atrial Fibrillation, Heart Failure Additional Past Medical History / Comment(s): Pt recently had an influenza and was on an antibiotic, recently told he has a "spot" on his R lung-not worked up yet, Afib with RVR in past, no CPAP necessary, kidney stones, psoriasis, reactive airway, urinary frequency. History of Any Multi-Drug Resistant Organisms: None Reported Past Surgical History: Cardiac Ablation, Joint Replacement, Orthopedic Surgery Additional Past Surgical History / Comment(s): cardiac ablation X2, kidney surgery 1954, iron knee, iron hip, Cardioversionx4 chip right shoulder, loss finger on left hand Past Anesthesia/Blood Transfusion Reactions: No Reported Reaction Past Psychological History: No Psychological Hx Reported Additional Psychological History / Comment(s): Pt resides with his spouse of 58 yrs. He is independent. Smoking Status: Current some day smoker Past Alcohol Use History: None Reported Additional Past Alcohol Use History / Comment(s): Patient smoked a pipe for 7 years and quit 40 years ago. No alcohol use, no marijuana or illicit drug use. Past Drug Use History: None Reported - Past Family History Mother Family Medical History: Cancer Additional Family Medical History / Comment(s): Mother at age 82 of lung cancer. Father Family Medical History: Cancer Additional Family Medical History / Comment(s): Father at age 80 of prostrate cancer. Brother(s) Family Medical History: Cancer Additional Family Medical History / Comment(s): Patient has a total of 6 brothers. One brother with history of atrial fibrillation and kidney cancer, second brother with valvular heart disease, third brother with Parkinson's. Daughter(s) Additional Family Medical History / Comment(s): Patient has 3 children and one daughter from complications from obesity. Other 2 children have no major medical problems. Medications and Allergies Home Medications Medication Instructions Recorded Confirmed Type Tamsulosin HCl [Flomax] 0.4 mg PO BID 07/12/14 08/14/19 History Acetaminophen Tab [Tylenol Tab] 1,000 mg PO Q8HR PRN 08/14/19 08/14/19 History Aspirin EC [Ecotrin Low Dose] 81 mg PO DAILY 08/14/19 08/14/19 History Digoxin [Digitek] 125 mcg PO DAILY 08/14/19 08/14/19 History Digoxin [Digitek] 250 mcg PO DAILY 08/14/19 08/14/19 History Furosemide [Lasix] 40 mg PO DAILY@1400 08/14/19 08/14/19 History Furosemide [Lasix] 80 mg PO QAM 08/14/19 08/14/19 History Lidocaine 5% Patch [Lidoderm] 1 patch TOPICAL DAILY 08/14/19 08/14/19 History Lisinopril [Zestril] 2.5 mg PO DAILY 08/14/19 08/14/19 History Melatonin 6 mg PO HS 08/14/19 08/14/19 History Metolazone [Zaroxolyn] 2.5 mg PO DAILY 08/14/19 08/14/19 History Metoprolol Succinate (ER) [Toprol 25 mg PO DAILY@1700 08/14/19 08/14/19 History Xl] Midodrine HCl 5 mg PO BID 08/14/19 08/14/19 History traMADol HCL [Ultram] 50 mg PO Q6HR PRN 08/14/19 08/14/19 History Apixaban [Eliquis] 5 mg PO BID #60 tab 08/16/19 Rx Allergies Allergy/AdvReac Type Severity Reaction Status Date / Time isosorbide mononitrate Allergy Unknown Verified 08/14/19 14:52 [From Imdur] Penicillins Allergy Rash/Hives Verified 08/14/19 14:52 albuterol [From Ventolin HFA] AdvReac Rapid Verified 08/14/19 14:52 Heart Rate amiodarone HCl AdvReac LUNGS/EYE Verified 08/14/19 14:52 [From Cordarone] PROBLEMS codeine AdvReac Nausea & Verified 08/14/19 14:52 Vomiting enalapril maleate AdvReac Cough Verified 08/14/19 14:52 [From Vasotec] enalaprilat dihydrate AdvReac Cough Verified 08/14/19 14:52 [From Vasotec] hydromorphone HCl AdvReac Nausea & Verified 08/14/19 14:52 [From Dilaudid] Vomiting loratadine [From Claritin] AdvReac Rapid Verified 08/14/19 14:52 Heart Rate morphine AdvReac Nausea & Verified 08/14/19 14:52 Vomiting procainamide HCl AdvReac "FLUID ON Verified 08/14/19 14:52 [From Pronestyl] HEART" tetanus toxoid, adsorbed AdvReac "JOINT Verified 08/14/19 14:52 STIFFNESS" Physical Exam Vitals: Vital Signs Temp Pulse Resp BP BP Pulse Ox 08/18/19 12:00 97.8 F 107 H 18 95/54 95 08/18/19 08:00 98.3 F 117 H 18 111/60 93 L 08/18/19 03:25 104 H 17 117/63 97 08/17/19 23:16 98.1 F 106 H 17 129/60 96 08/17/19 20:00 98.1 F 111 H 17 128/57 96 08/17/19 16:00 97.4 F L 115 H 17 103/56 98 Intake and Output 08/17/19 08/18/19 08/18/19 22:59 06:59 14:59 Intake Total 360 520 Output Total 700 725 300 Balance -340 -725 220 Intake: IV 160 Sodium Chloride 0.9% 1, 160 000 ml @ 20 mls/hr IV . Q24H [facility] Rx#:[id number] Oral 360 360 Output: Urine 700 725 300 Other: Voiding Method Urinal Urinal Urinal Weight 115.5 kg Gen: This is an 84-year-old male. He is sitting up in a chair and appears to be comfortable and in no acute distress. No respiratory distress is noted. Patient's is at bedside. HEENT: Head is atraumatic, normocephalic. Pupils equal, round. Sclerae is anicteric. NECK: Supple. No JVD. No lymphadenopathy. No thyromegaly. LUNGS: Clear to auscultation. No wheezes or rhonchi. No intercostal retractions. HEART: Irregularly irregular rate and rhythm. Systolic murmur. ABDOMEN: Soft. Bowel sounds are present. No masses. No tenderness. EXTREMITIES: Bilateral pedal edema. No calf tenderness. Multiple lower extremity wounds and serous weeping. Please see nursing documentation and pictures for detail. NEUROLOGICAL: Patient is awake, alert and oriented x3. Cranial nerves 2 through 12 are grossly intact. Results CBC & Chem 7: 08/18/19 05:43 08/18/19 05:43 Labs: Abnormal Lab Results - Last 24 Hours (Table) 08/18/19 08/18/19 08/18/19 Range/Units 05:43 05:43 05:43 RBC 3.04 L (4.30-5.90) m/uL Hgb 10.4 L (13.0-17.5) gm/dL Hct 31.7 L (39.0-53.0) % MCV 104.5 H (80.0-100.0) fL Sodium 133 L (137-145) mmol/L BUN 44 H (9-20) mg/dL Uric Acid 10.3 H (3.5-8.5) mg/dL Microbiology - Last 24 Hours (Table) 08/17/19 17:00 Gram Stain - Preliminary Leg - Left Wound Culture - Preliminary Assessment and Plan Plan: This is an 84-year-old male who presented to the hospital with atrial fibrillation with RVR. Cardiology is followed closely and this made multiple adjustments to his medications and also started him on eliquis. He is scheduled for BRIAN and cardioversion tomorrow. Patient has chronic lower extremity wounds to the bilateral legs. He has been treated in the wound healing Center. He has lower extremity edema and has been on Lasix and concern is now that there is increased redness and cellulitis to the areas. Patient has been seen by the wound care team and is currently on absorptive silver dry, ABD, and rolled gauze, and 2 layer Tubigrip. Changed on Saturday. May change o uter dressing if soiled as needed. Keep silver and place until appropriate time to change. Patient was noted yesterday to have increased serous drainage from the wounds as well. Patient started on ceftriaxone. Wound culture in progress. Further recommendations as patient progresses. The above dictated assessment and findings were discussed with Dr. Kilpatrick. The impression and plan of care have been directed as dictated. Urmila Carey nurse practitioner acting as scribe for Dr. Kilpatrick. <Lali Kilpatrick - Last Filed: 08/18/19 23:06> Physical Exam Vitals: Vital Signs Temp Pulse Resp BP Pulse Ox 08/18/19 20:00 98.2 F 103 H 18 116/57 98 08/18/19 16:00 97.7 F 93 18 103/50 95 08/18/19 12:00 97.8 F 107 H 18 95/54 95 08/18/19 08:00 98.3 F 117 H 18 111/60 93 L 08/18/19 03:25 104 H 17 117/63 97 08/17/19 23:16 98.1 F 106 H 17 129/60 96 Intake and Output 08/18/19 08/18/19 08/19/19 14:59 22:59 06:59 Intake Total 880 660 Output Total 300 150 Balance 580 510 Intake: IV 160 Sodium Chloride 0.9% 1, 160 000 ml @ 20 mls/hr IV . Q24H [facility] Rx#:[id number] Oral 720 660 Output: Urine 300 150 Other: Voiding Method Urinal Urinal # Voids 2 Results CBC & Chem 7: 08/18/19 05:43 08/18/19 05:43 Labs: Abnormal Lab Results - Last 24 Hours (Table) 08/18/19 08/18/19 08/18/19 Range/Units 05:43 05:43 05:43 RBC 3.04 L (4.30-5.90) m/uL Hgb 10.4 L (13.0-17.5) gm/dL Hct 31.7 L (39.0-53.0) % MCV 104.5 H (80.0-100.0) fL Sodium 133 L (137-145) mmol/L BUN 44 H (9-20) mg/dL Uric Acid 10.3 H (3.5-8.5) mg/dL Microbiology - Last 24 Hours (Table) 08/17/19 17:00 Gram Stain - Preliminary Leg - Left Wound Culture - Preliminary Assessment and Plan Plan: Patient was seen and examined, nurse practitioner note was reviewed and agreed with the findings, 1-patient with bilateral lower extremity superficial wound from ruptured blister with secondary cellulitis likely from gram-positive skin zohra clinical suspicion for gram-negative infection 2-recommend cefazolin 2 g every 8 hours 3-local wound care with Dry Aquacel silver dressing and compression dressing wound will be examined tomorrow at the time of dressing changes We will follow on clinical condition and cultures to further adjust medication if needed Thank you for this consultation will follow this patient with you Questions concerned were answered in Layman terms Time with Patient: Greater than 30
[2019-08-18] MEDS: SODIUM CHLORIDE 0.9% 1,000 ML IV SCH (15:19)
[2019-08-19] MEDS: LEVOTHYROXINE 25 MCG TAB PO SCH (06:52)
[2019-08-19] MEDS: MIDODRINE 5 MG TAB PO SCH ×3 (06:52→18:32)
[2019-08-19] MEDS: ACETAMINOPHEN TAB 325 MG TAB PO PRN ×2 (07:02→21:41)
[2019-08-19] MEDS ORDERED: LACTATED RINGERS 1,000 ML IV ONE (07:57)
[2019-08-19] MEDS ORDERED: PROPOFOL 10 MG/ML 20 ML VIAL IV ONE (08:20)
[2019-08-19] MEDS ORDERED: BENZOCAINE SPRAY 1 CAN MUCOUS MEM ONE (08:28)
--- NOTE | 2019-08-19 08:50 | P.PCN ---
Date of Procedure: 08/19/19 Preoperative Diagnosis: Atrial flutter/fibrillation Postoperative Diagnosis: 6. Conversion to sinus rhythm Procedure(s) Performed: BRIAN and cardioversion Description of Procedure: This 84-year-old gentleman with history of chronic and recurrent atrial fibrillation was brought in for BRIAN cardioversion. Patient was prepped and draped in the usual fashion. The department of anesthesia provided IV anesthesia. A lubricated Omni probe was introduced into the oropharynx and was advanced into the esophagus. Multiple views were obtained. Patient tolerated the procedure well. Color, pulsed and continuous showed a studies were performed. Saline contrast bubble injection was also performed Findings: The aortic valve is tricuspid with moderate eccentric regurgitation. The aortic root appeared to be normal. The left atrial appendage is free of any clot. The mitral valve showed a central moderate regurgitation. The PISA of valve is 0.6 to 0.7. There is moderate tricuspid regurgitation. There is moderate aortic regurgitation. The left ankle function is moderately to severely impaired. The interatrial septum is intact without any spontaneous shunt. Plan: Proceed with cardioversion. CARDIOVERSION: After BRIAN, anterior posterior paddles were applied. Patient continued to be under anesthesia. A synchronized 200 J shock was applied. Patient converted to sinus rhythm. No immediate complications. Patient t olerated the procedure well. Final impression: Successful cardioversion to sinus rhythm
[2019-08-19] MEDS: LIDOCAINE 5% PATCH TOPICAL SCH (10:14)
[2019-08-19] MEDS: TAMSULOSIN 0.4 MG CAP.ER.24H PO SCH ×2 (10:15→20:17)
[2019-08-19] MEDS: METOPROLOL SUCCINATE (ER) 50 MG TAB.ER.24H PO SCH ×2 (10:15→20:17)
[2019-08-19] MEDS: SENNOSIDES-DOCUSATE SODIUM 1 EACH TAB PO SCH (10:15)
[2019-08-19] MEDS: SOTALOL 80 MG TAB PO SCH ×2 (10:15→20:17)
[2019-08-19] MEDS: LISINOPRIL 2.5 MG TAB PO SCH (10:16)
[2019-08-19] MEDS: APIXABAN 5 MG TAB PO SCH ×2 (10:16→20:17)
[2019-08-19] MEDS: FUROSEMIDE 40 MG TAB PO SCH ×2 (10:16→15:01)
[2019-08-19] MEDS: SPIRONOLACTONE 25 MG TAB PO SCH (10:16)
[2019-08-19] MEDS: traMADol 50 MG TAB PO SCH ×4 (10:17→23:02)
[2019-08-19] MEDS: LACTATED RINGERS 1,000 ML IV SCH (10:19)
[2019-08-19] MEDS: SODIUM CHLORIDE 0.9% 1,000 ML IV SCH ×4 (11:15→15:09)
--- NOTE | 2019-08-19 15:12 | P.PN ---
Subjective Progress Note Date: 08/19/19 On this is an 84-year-old male patient of Dr. Mosqueda with past medical history of paroxysmal atrial fibrillation status post cardiac ablation in 2007 as well as cardioversions a couple times since then, hypertension, osteoarthritis, obstructive sleep apnea but not currently on a CPAP, psoriasis, hard of hearing. Patient's gives history that patient wasn't [facility] one month ago and was on a heparin drip and Lasix drip was treated for heart failure. He had a hematoma develop on the left hip without any fall and it was causing difficulty walking ended up going to rehab at [facility]. While he was at [facility] she states that his kidney function was affected. On Saturday he went home and starting on Saturday he was feeling bad. He saw cardiology in the office and he was started on digoxin which she read see one dose at home and then he was called on Saturday that his lab work was abnormal, blood pressure was on the lower side anyway and patient was told to come into the hospital. Patient has not been on any recent steroids. He denies any blood or tarry stools. He denies any chest pain, palpitations. He states he feels weak. He does have chronic lower extremity wounds. Patient came into [facility] emergency center for evaluation. He was afebrile, initial blood pressure 86/45, heart rate 67. EKG was atrial fibrillation with RVR at 158. Patient was started on Cardizem bolus and drip. CBC within normal limits, BUN 112, creatinine 1.69, sodium 134, potassium 3.3, chloride 94, CO2 31, blood sugar 115. Magnesium 2.9. Troponins negative on 3 draws. Triglycerides 81, cholesterol 165, LDL 104, HDL 45. Patient was ad mitted to the cardiac stepdown unit and cardiology consult requested. 08/16: Patient remains in A. fib with RVR with heart rate running [id number] up to 144 intermittently. He he is currently on heparin drip and Cardizem 30 mg 3 times daily oral. Cardiology has transitioned heparin to eliquis and resumed on Metoprolol XL increased dose to 50 mg daily, 1 dose of Lopressor 25 mg, started amiodarone 400 mg twice daily and Digoxin 250 g oral daily. Eliquis has been prescribed to the patient's pharmacy to check coverage Patient has been afebrile, blood pressure 105/55, pulse ox 95% on room air. WBC 7.3, hemoglobin 11.1, platelet count 181. Sodium 135, potassium 3.8, chloride 99, CO2 36, BUN 1261 and creatinine 0.94, blood sugar 114. Patient is complaining of pain pill tramadol not holding him and will increase to this to 4 times daily. 08/17: TSH 5.290 and patient started on levothyroxine 25 g daily. Patient has lower extremity edema and significant drainage from the right leg. Lasix will be increased to 40 mg oral twice daily and midodrine increased to 10 mg three times daily. Cardiology has increased frequency of Toprol-XL 50 mg twice daily and added spironolactone to start tomorrow. Patient is also followed by wound care. Wound culture to be obtained. He has been afebrile, heart rate 108, blood pressure 111/59, pulse ox 97% on room air. 08/18: Limited echocardiogram revealed EF between 30 and 35%. On consult with Dr. Lima performed yesterday for treatment of atrial fibrillation and consideration for permanent pacemaker implantation and subsequent AV node ablation. Medication changes were made yesterday by Dr. Lima. Patient's spironolactone was increased to 25 mg daily, sotalol 80 mg twice daily added. Recommend BRIAN electrocardioversion and reassess LV function in sinus rhythm. Monitor renal function closely on sotalol and QT prolongation. After cardioversion, may decrease metoprolol depending on blood pressure. No plan at this point for device implantation. Patient has been afebrile, heart rate running between 104 117, blood pressure 111/60, pulse ox 93% on room air. Repeat blood work reveals a CBC 7.5, hemoglobin 10.4, sodium 133, potassium 4.1, chloride 99, CO2 29, BUN 44 and creatinine 0.92. Patient is scheduled for BRIAN and cardioversion tomorrow. Patient denies any chest pain or shortness of breath, no palpitations. His heart rate remains elevated and he is complaining of nausea today which is new. He has pain in the lower extremities which is been chronic and a uric acid will be checked. [employer] is $48 per month and patient agrees to the cost. 08/19: Patient underwent successful cardioversion this morning into a sinus rhythm. BRIAN revealed moderate tricuspid regurgitation, moderate aortic regurgitation, left ventricular function moderately to severely impaired. Repeat echocardiogram has been ordered. The patient has been seen by Dr. Kilpatrick for lower extremity ulcers and cellulitis. Recommend cefazolin 2 g every 8 hours and dry Aquacel Ag dressing and compression. Heart rate is currently in the 60s to 70s, blood pressure 110/55, pulse ox 95% on room air. Patient denies any new complaints. No chest pain, shortness of breath, no lightheadedness or dizziness. Review of Systems Constitutional: Denies anorexia, Denies chills, Denies fatigue, Denies fever, D enies lethargy, Denies malaise, Denies poor appetite Ears, nose, mouth and throat: Denies headache, Denies nasal congestion, Denies nasal discharge, Denies sore throat, Denies vertigo Cardiovascular: Denies chest pain, Denies decreased exercise tolerance, Denies dyspnea on exertion, Denies edema, Denies leg edema, Denies lightheadedness, Denies shortness of breath, Denies syncope Respiratory: Denies cough with sputum, Reports sleep apnea, Denies dyspnea, Denies excessive sputum, Denies hemoptysis Gastrointestinal: Denies abdominal pain, Denies diarrhea, Denies loss of appetite, reports nausea, Denies vomiting Genitourinary: Denies dysuria, Denies urinary retention Musculoskeletal: Denies frequent falls, Denies gait dysfunction, Denies muscle weakness, Denies myalgias Integumentary: Denies pruritus, Denies rash, Denies wounds Neurological: Denies change in mentation, Denies change in speech, Denies double vision, Denies numbness, Denies vertigo, Denies weakness Psychiatric: Denies anxiety, Denies depression Endocrine: Denies fatigue, Denies weight change Objective - Vital Signs Vital signs: Vital Signs Temp 98.5 F 08/19/19 04:00 Pulse 73 08/19/19 09:02 Resp 16 08/19/19 09:02 BP 110/55 08/19/19 09:02 Pulse Ox 95 08/19/19 09:02 Intake & Output 08/18/19 08/19/19 08/19/19 18:59 06:59 18:59 Intake Total 1540 100 Output Total 300 1125 Balance 1240 -1125 100 Weight 109.8 kg Intake: IV 160 100 Sodium Chloride 0.9% 1, 160 000 ml @ 20 mls/hr IV . Q24H [facility] Rx#:[id number] Oral 1380 Output: Urine 300 1125 Other: Voiding Method Urinal Urinal # Voids 2 - Exam Gen: This is an 84-year-old male. He is sitting up in a chair and appears to be comfortable and in no acute distress. No respiratory distress is noted. is at bedside. HEENT: Head is atraumatic, normocephalic. Pupils equal, round. Sclerae is anicteric. NECK: Supple. No JVD. No lymphadenopathy. No thyromegaly. LUNGS: Clear to auscultation. No wheezes or rhonchi. No intercostal retractions. HEART: Irregularly irregular rate and rhythm. Systolic murmur. ABDOMEN: Soft. Bowel sounds are present. No masses. No tenderness. EXTREMITIES: Bilateral lower extremity pedal edema. No calf tenderness. Multiple lower extremity wounds and serous weeping. Please see nursing documentation. NEUROLOGICAL: Patient is awake, alert and oriented x3. Cranial nerves 2 through 12 are grossly intact. - Labs CBC & Chem 7: 08/18/19 05:43 08/18/19 05:43 Labs: Abnormal Lab Results - Last 24 Hours (Table) 08/18/19 Range/Units 05:43 Uric Acid 10.3 H (3.5-8.5) mg/dL Microbiology - Last 24 Hours (Table) 08/17/19 17:00 Gram Stain - Preliminary Leg - Left Wound Culture - Preliminary Assessment and Plan Plan: 1. Atrial fibrillation with RVR. Patient is now in a normal sinus rhythm Continue eliquis 5 mg twice daily, Sotalol 80 mg twice daily, Toprol XL 50 mg twice daily, aldactone 25 mg daily. Status post BRIAN and electrical cardioversion. 2. Paroxysmal atrial fibrillation. Continue as above. 3. Obstructive sleep apnea. Patient will need to use the CPAP. 4. Hypertension. Continue Cardizem, Lasix. Patient currently on midodrine twice daily 5. Benign prostatic hypertrophy. Monitor for urinary retention. Continue Flomax 0.4 mg twice daily. 6. 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 Consult with wound care today. Continue local wound care. Lasix 40 mg oral twice daily and midodrine increased to 10 mg 3 times daily. Consult with Dr. Kilpatrick appr eciated. Patient started on Kefzol. Wound culture in progress. 7. GI prophylaxis. Pepcid 20 mg orally once every day. 8. DVT prophylaxis. Eliquis 9. Hypothyroidism. Start levothyroxine 25 mcg daily. Discharge plan: Home with [facility] Impression and plan of care have been directed as dictated by the signing physician. Urmila Carey nurse practitioner acting as scribe for signing physician.
--- NOTE | 2019-08-19 22:13 | PN ---
PROGRESS NOTE DATE OF SERVICE: 08/19/2019 REASON FOR FOLLOWUP: Bilateral lower extremity wounds and cellulitis. INTERVAL HISTORY: The patient is currently afebrile, has been breathing comfortably. Denies having any chest pain or any cough. No nausea, vomiting or any worsening pain to the lower extremities. PHYSICAL EXAMINATION: Blood pressure 117/48 with a pulse of 68, temperature 97.7. He is 96% on room air. General description is an elderly male up in the chair in no distress. RESPIRATORY SYSTEM: Unlabored breathing. Clear to auscultation anteriorly. HEART: S1, S2. Regular rate and rhythm. ABDOMEN: Soft. No tenderness. Bilateral lower extremities with some superficial ulcerations, minimal redness. LABS: Hemoglobin is 10.4, white count 7.5. BUN of 44, creatinine 0.92. DIAGNOSTIC IMPRESSION AND PLAN: Patient with bilateral lower extremity superficial ulcerations with secondary cellulitis. Local wound care to continue with dry Aquacel Silver dressing and light Tex wrap to be changed q.48 hours. Antibiotic to continue in the form of cefazolin. Finish therapy with oral Keflex. Continue with supportive care. MMODL / IJN: [id number] /
[2019-08-20 00:35] LABS: Glucose,Whole Blood 108 mg/dL (75-99)
[2019-08-20 01:31] LABS: Calcium 8.4 mg/dL (8.4-10.2); Magnesium 1.9 mg/dL (1.6-2.3); Potassium 4.3 mmol/L (3.5-5.1)
[2019-08-20] MEDS: MIDODRINE 5 MG TAB PO SCH ×3 (06:34→17:23)
[2019-08-20] MEDS: LEVOTHYROXINE 25 MCG TAB PO SCH (06:34)
[2019-08-20 07:41] LABS: HCT 30.9 % (39.0-53.0); HGB 10.2 gm/dL (13.0-17.5); MCH 34.5 pg (25.0-35.0); MCHC 32.8 g/dL (31.0-37.0); Macrocytosis Moderate; Mean Platelet Volume 7.5; Platelet Count 214 k/uL (150-450); RBC 2.94 m/uL (4.30-5.90); RDW 15.6 % (11.5-15.5); WBC 7.7 k/uL (3.8-10.6)
[2019-08-20 07:52] LABS: Potassium 4.4 mmol/L (3.5-5.1)
[2019-08-20 07:53] LABS: Calcium 8.4 mg/dL (8.4-10.2)
[2019-08-20] MEDS: FUROSEMIDE 40 MG TAB PO SCH ×2 (09:18→16:26)
[2019-08-20] MEDS: LIDOCAINE 5% PATCH TOPICAL SCH (09:18)
[2019-08-20] MEDS: APIXABAN 5 MG TAB PO SCH ×2 (09:18→20:45)
[2019-08-20] MEDS: LISINOPRIL 2.5 MG TAB PO SCH (09:19)
[2019-08-20] MEDS: METOPROLOL SUCCINATE (ER) 50 MG TAB.ER.24H PO SCH (09:19)
[2019-08-20] MEDS: SOTALOL 80 MG TAB PO SCH ×2 (09:20→20:45)
[2019-08-20] MEDS: SPIRONOLACTONE 25 MG TAB PO SCH (09:21)
[2019-08-20] MEDS: traMADol 50 MG TAB PO SCH ×3 (09:21→22:42)
[2019-08-20] MEDS: TAMSULOSIN 0.4 MG CAP.ER.24H PO SCH ×2 (09:21→20:45)
[2019-08-20] MEDS: SODIUM CHLORIDE 0.9% 1,000 ML IV SCH (09:23)
[2019-08-20] MEDS: SENNOSIDES-DOCUSATE SODIUM 1 EACH TAB PO SCH (09:23)
--- NOTE | 2019-08-20 11:50 | ECHOF ---
Referral Reason:limited study assess lvf MEASUREMENTS -------- HEIGHT: 180.3 cm WEIGHT: 110.7 kg BP: IVSd: 1.3 cm (0.6 - 1.1) LVIDd: 4.4 cm (3.9 - 5.3) LVPWd: 1.4 cm (0.6 - 1.1) IVSs: 1.8 cm LVIDs: 2.6 cm LVPWs: 2.0 cm FINDINGS -------- Sinus rhythm. This was a technically difficult study with suboptimal views. Limited study for LV function. The left ventricular size is normal. There is mild concentric left ventricular hypertrophy. Overa ll left ventricular systolic function is mild-moderately impaired with, an EF between 40 - 45 %. Annabelle used CONCLUSIONS -------- 1. Sinus rhythm. 2. This was a technically difficult study with suboptimal views. 3. Limited study for LV function. 4. The left ventricular size is normal. 5. Annabelle used ADMISSIONS OFFICER: Nell Barroso RDCS
[2019-08-20] MEDS: ACETAMINOPHEN TAB 325 MG TAB PO PRN (12:51)
[2019-08-20] MEDS ORDERED: traMADol 50 MG TAB PO STA (12:55)
[2019-08-20] MEDS ORDERED: TRIMETHOBENZAMIDE 300 MG CAP PO PRN (13:00)
[2019-08-20] MEDS: SUCRALFATE 1 GM TAB PO SCH ×2 (13:03→17:23)
--- NOTE | 2019-08-20 13:51 | P.PN ---
Subjective Progress Note Date: 08/20/19 This is a pleasant 84-year-old gentleman with history of chronic atrial fibrillation, sleep apnea, chronic diastolic congestive heart failure, prior ablation and cardioversion, admitted to the hospital with congestive heart failure exacerbation and atrial fibrillation with rapid ventricular response. Patient continues to be in atrial fibrillation today his heart rate is in the 90s. His echo was performed, they were unable to determine the LV function because of rapid rate. We will have them repeat an echo today, limited study, to assess LV function now that the heart rate is much more stable. Blood pressure 110/60. White blood cell count 7.1, hemoglobin 11.1, platelet count 181. Sodium 135, potassium 3.8, BUN 61, creatinine 0.9. TSH level 5.2 free T4 1. 08/18/2019 Limited echocardiogram with Doppler study was performed which revealed an ejection fraction of 30-35%. Patient was also seen in consultation yesterday by Dr. Tello, there is consideration for possible pacer implantation and subsequent AV node ablation as an outpatient. The Cardizem and Lanoxin were also discontinued, patient is on beta ann as well as sotalol. Patient is scheduled to undergo a BRIAN and cardioversion tomorrow. The LV function will be reassessed once the patient is in normal sinus rhythm. I pressure today 110/60 with a heart rate in the 90s, 93% on room air. White blood cell count 7.5, hemoglobin 10.4, platelet count 184. Sodium 133, potassium 4.1, BUN 44, creatinine 0.9. 08/20/2019 Patient was seen and examined this morning, he underwent a BRIAN and cardioversion yesterday, remains in a normal sinus rhythm today but his heart rate is mainly in the 40s to 50s. He was sitting up in the chair at the time of my examination, overall complain of generally not feeling well today. Limited echocardiogram with Doppler study was performed which revealed an ejection fraction of 40-45%. Let pressure 120/70, heart rate in the 60s, 98% on room air. Blood cell count 7.7, hemoglobin 10.2, platelet count 214. Sodium 136, potassium 4.4, BUN 40, creatinine 1.0. Objective - Vital Signs Vital signs: Vital Signs Temp 98.2 F 08/20/19 12:00 Pulse 63 08/20/19 12:00 Resp 18 08/20/19 12:00 BP 121/76 08/20/19 12:00 Pulse Ox 98 08/20/19 12:00 Intake & Output 08/19/19 08/20/19 08/20/19 18:59 06:59 18:59 Intake Total 1090 480 Output Total 440 675 175 Balance 650 -215 305 Weight 110.9 kg 110.9 kg Intake: IV 240 Sodium Chloride 0.9% 1, 240 000 ml @ 20 mls/hr IV . Q24H [facility]Y Rx#:[id number] Intake, IV Titration 100 Amount ceFAZolin 2 gm In Sodium 50 Chloride 0.9% 50 ml @ 100 mls/hr IVPB Q8HR [facility] Rx# :[id number] cefTRIAXone 2 gm In 50 Sodium Chloride 0.9% 50 ml @ 100 mls/hr IVPB Q24HR [facility]Y Rx#:[id number] Oral 750 480 Output: Urine 440 675 175 Other: Voiding Method Urinal Urinal # Voids 3 5 1 # Bowel Movements 1 - Exam Gen: This is an 84-year-old male. He is sitting up in a chair and a ppears to be comfortable and in no acute distress. No respiratory distress is noted. Lesions is at bedside. HEENT: Head is atraumatic, normocephalic. Pupils equal, round. Sclerae is anicteric. NECK: Supple. No JVD. No lymphadenopathy. No thyromegaly. LUNGS: Clear to auscultation. No wheezes or rhonchi. No intercostal retractions. HEART: Irregularly irregular rate and rhythm. Systolic murmur. ABDOMEN: Soft. Bowel sounds are present. No masses. No tenderness. EXTREMITIES: Bilateral peripheral edema. No calf tenderness. Multiple lower extremity wounds. Please see nursing documentation and pictures for details. NEUROLOGICAL: Patient is awake, alert and oriented x3. Cranial nerves 2 through 12 are grossly intact. - Labs CBC & Chem 7: 08/20/19 06:49 08/20/19 06:49 Labs: Abnormal Lab Results - Last 24 Hours (Table) 08/20/19 08/20/19 08/20/19 Range/Units 00:14 00:43 06:49 RBC 2.94 L (4.30-5.90) m/uL Hgb 10.2 L (13.0-17.5) gm/dL Hct 30.9 L (39.0-53.0) % MCV 105.0 H (80.0-100.0) fL RDW 15.6 H (11.5-15.5) % Sodium 134 L (137-145) mmol/L Carbon Dioxide (22-30) mmol/L BUN 41 H (9-20) mg/dL Glucose 101 H (74-99) mg/dL POC Glucose (mg/dL) 108 H (75-99) mg/dL 08/20/19 Range/Units 06:49 RBC (4.30-5.90) m/uL Hgb (13.0-17.5) gm/dL Hct (39.0-53.0) % MCV (80.0-100.0) fL RDW (11.5-15.5) % Sodium 136 L (137-145) mmol/L Carbon Dioxide 32 H (22-30) mmol/L BUN 40 H (9-20) mg/dL Glucose (74-99) mg/dL POC Glucose (mg/dL) (75-99) mg/dL Microbiology - Last 24 Hours (Table) 08/17/19 17:00 Gram Stain - Final Leg - Left Wound Culture - Final Assessment and Plan Plan: Assessment and Plan: 1. Chronic persistent Atrial fibrillation 2. Obstructive sleep apnea. 3. Hypertension. 4. Benign prostatic hypertrophy. 5. Chronic lower extremity vascular ulcers. #6 acute on chronic renal failure #7 chronic congestive heart failure Plan We will hold the beta ann dose this morning, give the sotalol. We'll also speak with Dr. Lima regarding the bradycardia today. Further recommendations to follow. DNP note has been reviewed, I agree with a documented findings and plan of care. Patient was seen and examined.
--- NOTE | 2019-08-20 15:04 | P.PN ---
Subjective Progress Note Date: 08/20/19 On this is an 84-year-old male patient of Dr. Mosqueda with past medical history of paroxysmal atrial fibrillation status post cardiac ablation in 2007 as well as cardioversions a couple times since then, hypertension, osteoarthritis, obstructive sleep apnea but not currently on a CPAP, psoriasis, hard of hearing. Patient's gives history that patient wasn't [facility] one month ago and was on a heparin drip and Lasix drip was treated for heart failure. He had a hematoma develop on the left hip without any fall and it was causing difficulty walking ended up going to rehab at [facility]. While he was at [facility] she states that his kidney function was affected. On Saturday he went home and starting on Saturday he was feeling bad. He saw cardiology in the office and he was started on digoxin which she read see one dose at home and then he was called on Saturday that his lab work was abnormal, blood pressure was on the lower side anyway and patient was told to come into the hospital. Patient has not been on any recent steroids. He denies any blood or tarry stools. He denies any chest pain, palpitations. He states he feels weak. He does have chronic lower extremity wounds. Patient came into [facility] emergency center for evaluation. He was afebrile, initial blood pressure 86/45, heart rate 67. EKG was atrial fibrillation with RVR at 158. Patient was started on Cardizem bolus and drip. CBC within normal limits, BUN 112, creatinine 1.69, sodium 134, potassium 3.3, chloride 94, CO2 31, blood sugar 115. Magnesium 2.9. Troponins negative on 3 draws. Triglycerides 81, cholesterol 165, LDL 104, HDL 45. Patient was ad mitted to the cardiac stepdown unit and cardiology consult requested. 08/16: Patient remains in A. fib with RVR with heart rate running [id number] up to 144 intermittently. He he is currently on heparin drip and Cardizem 30 mg 3 times daily oral. Cardiology has transitioned heparin to eliquis and resumed on Metoprolol XL increased dose to 50 mg daily, 1 dose of Lopressor 25 mg, started amiodarone 400 mg twice daily and Digoxin 250 g oral daily. Eliquis has been prescribed to the patient's pharmacy to check coverage Patient has been afebrile, blood pressure 105/55, pulse ox 95% on room air. WBC 7.3, hemoglobin 11.1, platelet count 181. Sodium 135, potassium 3.8, chloride 99, CO2 36, BUN 1261 and creatinine 0.94, blood sugar 114. Patient is complaining of pain pill tramadol not holding him and will increase to this to 4 times daily. 08/17: TSH 5.290 and patient started on levothyroxine 25 g daily. Patient has lower extremity edema and significant drainage from the right leg. Lasix will be increased to 40 mg oral twice daily and midodrine increased to 10 mg three times daily. Cardiology has increased frequency of Toprol-XL 50 mg twice daily and added spironolactone to start tomorrow. Patient is also followed by wound care. Wound culture to be obtained. He has been afebrile, heart rate 108, blood pressure 111/59, pulse ox 97% on room air. 08/18: Limited echocardiogram revealed EF between 30 and 35%. On consult with Dr. Lima performed yesterday for treatment of atrial fibrillation and consideration for permanent pacemaker implantation and subsequent AV node ablation. Medication changes were made yesterday by Dr. Lima. Patient's spironolactone was increased to 25 mg daily, sotalol 80 mg twice daily added. Recommend BRIAN electrocardioversion and reassess LV function in sinus rhythm. Monitor renal function closely on sotalol and QT prolongation. After cardioversion, may decrease metoprolol depending on blood pressure. No plan at this point for device implantation. Patient has been afebrile, heart rate running between 104 117, blood pressure 111/60, pulse ox 93% on room air. Repeat blood work reveals a CBC 7.5, hemoglobin 10.4, sodium 133, potassium 4.1, chloride 99, CO2 29, BUN 44 and creatinine 0.92. Patient is scheduled for BRIAN and cardioversion tomorrow. Patient denies any chest pain or shortness of breath, no palpitations. His heart rate remains elevated and he is complaining of nausea today which is new. He has pain in the lower extremities which is been chronic and a uric acid will be checked. EliScreenTag is $48 per month and patient agrees to the cost. 08/19: Patient underwent successful cardioversion this morning into a sinus rhythm. BRIAN revealed moderate tricuspid regurgitation, moderate aortic regurgitation, left ventricular function moderately to severely impaired. Repeat echocardiogram has been ordered. The patient has been seen by Dr. Kilpatrick for lower extremity ulcers and cellulitis. Recommend cefazolin 2 g every 8 hours and dry Aquacel Ag dressing and compression. Heart rate is currently in the 60s to 70s, blood pressure 110/55, pulse ox 95% on room air. Patient denies any new complaints. No chest pain, shortness of breath, no lightheadedness or dizziness. 08/20: Patient is complaining of significant pain to his lower extremities especially on the left side. We will increase tramadol to 100 mg 3 times daily starting now. Patient is also complaining of nausea but due to QT prolongation, Tigan oral 300 mg scheduled 3 times daily will be added. Patient has been afebrile, heart rate 67, blood pressure 111/46, pulse ox 96% on room air. Heart rate has been as low as 40s and 50s, sinus rhythm. WBC 7.7, hemoglobin 10.2, platelet count 214. Sodium 136, potassium 4.4, chloride 101, CO2 32, BUN 40 and creatinine 1.0. Cardiology has placed metoprolol on hold due to bradycardia . Limited echocardiogram reveals EF of 40-45%. Patient may require pacemaker implantation. Review of Systems Constitutional: Denies anorexia, Denies chills, Denies fatigue, Denies fever, Denies lethargy, reports alaise, Denies poor appetite Ears, nose, mouth and throat: Denies headache, Denies nasal congestion, Denies nasal discharge, Denies sore throat, Denies vertigo Cardiovascular: Denies chest pain, Denies decreased exercise tolerance, Denies dyspnea on exertion, Denies edema, Denies leg edema, Denies lightheadedness, Denies shortness of breath, Denies syncope Respiratory: Denies cough with sputum, Reports sleep apnea, Denies dyspnea, Denies excessive sputum, Denies hemoptysis Gastrointestinal: Denies abdominal pain, Denies diarrhea, Denies loss of appe tite, reports nausea, Denies vomiting Genitourinary: Denies dysuria, Denies urinary retention Musculoskeletal: Denies frequent falls, Denies gait dysfunction, Denies muscle weakness, Denies myalgias, reports pain to the bilateral lower legs Integumentary: Denies pruritus, Denies rash, Denies wounds Neurological: Denies change in mentation, Denies change in speech, Denies double vision, Denies numbness, Denies vertigo, Denies weakness Psychiatric: Denies anxiety, Denies depression Endocrine: Denies fatigue, Denies weight change Objective - Vital Signs Vital signs: Vital Signs Temp 98.2 F 08/20/19 08:00 Pulse 67 08/20/19 08:00 Resp 18 08/20/19 08:00 BP 111/46 08/20/19 08:00 Pulse Ox 96 08/20/19 08:00 Intake & Output 08/19/19 08/20/19 08/20/19 18:59 06:59 18:59 Intake Total 1090 240 Output Total 440 675 175 Balance 650 -675 65 Weight 110.9 kg Intake: IV 240 Sodium Chloride 0.9% 1, 240 000 ml @ 20 mls/hr IV . Q24H PHILLY Rx#:[id number] Intake, IV Titration 100 Amount ceFAZolin 2 gm In Sodium 50 Chloride 0.9% 50 ml @ 100 mls/hr IVPB Q8HR [facility]ILLY Rx# :[id number] cefTRIAXone 2 gm In 50 Sodium Chloride 0.9% 50 ml @ 100 mls/hr IVPB Q24HR PHILLY Rx#:[id number] Oral 750 240 Output: Urine 440 675 175 Other: Voiding Method Urinal # Voids 3 5 1 # Bowel Movements 1 - Exam Gen: This is an 84-year-old male. He is sitting up in a chair and appears to be comfortable and in no acute distress. No respiratory distress is noted. is at bedside. HEENT: Head is atraumatic, normocephalic. Pupils equal, round. Sclerae is anicteric. NECK: Supple. No JVD. No lymphadenopathy. No thyromegaly. LUNGS: Clear to auscultation. No wheezes or rhonchi. No intercostal retractions. HEART: Irregularly irregular rate and rhythm. Systolic murmur. ABDOMEN: Soft. Bowel sounds are present. No masses. No tenderness. EXTREMITIES: Bilateral lower extremity pedal edema. No calf tenderness. Multiple lower extremity wounds and serous weeping. NEUROLOGICAL: Patient is awake, alert and oriented x3. Cranial nerves 2 through 12 are grossly intact. - Labs CBC & Chem 7: 08/20/19 06:49 08/20/19 06:49 Labs: Abnormal Lab Results - Last 24 Hours (Table) 08/20/19 08/20/19 08/20/19 Range/Units 00:14 00:43 06:49 RBC 2.94 L (4.30-5.90) m/uL Hgb 10.2 L (13.0-17.5) gm/dL Hct 30.9 L (39.0-53.0) % MCV 105.0 H (80.0-100.0) fL RDW 15.6 H (11.5-15.5) % Sodium 134 L (137-145) mmol/L Carbon Dioxide (22-30) mmol/L BUN 41 H (9-20) mg/dL Glucose 101 H (74-99) mg/dL POC Glucose (mg/dL) 108 H (75-99) mg/dL 08/20/19 Range/Units 06:49 RBC (4.30-5.90) m/uL Hgb (13.0-17.5) gm/dL Hct (39.0-53.0) % MCV (80.0-100.0) fL RDW (11.5-15.5) % Sodium 136 L (137-145) mmol/L Carbon Dioxide 32 H (22-30) mmol/L BUN 40 H (9-20) mg/dL Glucose (74-99) mg/dL POC Glucose (mg/dL) (75-99) mg/dL Microbiology - Last 24 Hours (Table) 08/17/19 17:00 Gram Stain - Final Leg - Left Wound Culture - Final Assessment and Plan Plan: 1. Atrial fibrillation with RVR. Patient is now in a normal sinus rhythm Continue eliquis 5 mg twice daily, Sotalol 80 mg twice daily, Toprol XL discontinued due to bradycardia, continue aldactone 25 mg daily. Status post BRIAN and electrical cardioversion. 2. Paroxysmal atrial fibrillation. Continue as above. 3. Obstructive sleep apnea. Patient will need to use the CPAP. 4. Hypertension. Continue Cardizem, Lasix. Patient currently on midodrine twice daily 5. Benign prostatic hypertrophy. Monitor for urinary retention. Continue Flomax 0.4 mg twice daily. 6. 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 Consult with wound care today. Continue local wound care. Lasix 40 mg oral twice daily and midodrine increased to 10 mg 3 times daily. Consult with Dr. Kilpatrick appreciated. Patient started on Kefzol. Wound culture in progress. Dr. Taylor is recommended Keflex at the time of discharge. 7. GI prophylaxis. Pepcid 20 mg orally once every day. 8. DVT prophylaxis. Eliquis 9. Hypothyroidism. Start levothyroxine 25 mcg daily. Discharge plan: Home with [facility] Impression and plan of care have been directed as dictated by the signing physician. Urmila Carey nurse practitioner acting as scribe for signing physician.
--- NOTE | 2019-08-20 15:29 | P.PN ---
Subjective This is Keira Crowell PA-C dictating a progress note on this patient The patient was interviewed and examined by me as well as by Dr. Lima Case discussed with Dr. Lima and he agrees with the plan of care HPI/interval history Patient is an 84-year-old male with chronic diastolic CHF and atrial fibrillation who presented with acute kidney injury. He was also in atrial fibrillation with RVR. We were asked to see him in electrophysiology consult for consideration of permanent pacemaker implantation and subsequent AV node ablation however he has lower extremity ulcers therefore we recommended electrical cardioversion and antiarrhythmic drug therapy with sotalol. He was previously on amiodarone and it had to be stopped due to ophthalmologic side effects. Yesterday he underwent a BRIAN cardioversion. He was successfully converted to sinus rhythm. He has remained in sinus rhythm and was bradycardic this morning. His metoprolol was held. Patient seen and examined sitting up in his chair. He has not noticed much of a difference in his symptoms. He still has some shortness of breath. He also is complaining of nausea and vomiting. EXAMINATION he is afebrile, pulse in the 60s, respirations 18, blood pressure 121/76, oxygen saturation 98% on room air Patient seen and examined sitting up in the chair, in no acute distress Lungs are mildly diminished bilaterally Heart is regular, no audible murmurs No elevated JVD Bilateral lower extremities wrapped in gauze, edema improving REVIEW OF LABS, ECG Hemoglobin 10.2, WBC 7.7, platelets 214, potassium 4.4, BUN 40, creatinine 1.0 echocardiogram today shows EF 40-45% Previous echocardiogram on August 17 showed EF 30-35% EKG reviewed, shows sinus mechanism with absolute QT 440 ms, J T-segment appears slightly prolonged IMPRESSION / ASSESSMENT: Persistent atrial fibrillation with RVR, status post cardioversion, maintaining sinus rhythm on sotalol with some episodes of daytime sinus bradycardia this morning, anticoagulated with eliquis newly discovered cardiomyopathy, 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 Acute kidney injury, improved Bilateral lower extremity ulcers History of hypotension requiring Midrin, blood pressure is stable PLAN: Decrease metoprolol to 12.5 mg daily Continue sotalol 80 mg twice a day, monitor EKGs for QT prolongation, monitor J T-segment, avoid QT prolonging drugs Start oral magnesium supplement Monitor renal function closely on sotalol Hopefully he will maintain sinus rhythm and we will reassess his LV function to see if that improves in sinus rhythm Objective - Vital Signs Vital signs: Vital Signs Temp 98.2 F 08/20/19 12:00 Pulse 63 08/20/19 12:00 Resp 18 08/20/19 12:00 BP 121/76 08/20/19 12:00 Pulse Ox 98 08/20/19 12:00 Intake & Output 08/19/19 08/20/19 08/20/19 18:59 06:59 18:59 Intake Total 1090 480 Output Total 440 675 175 Balance 650 -675 305 Weight 110.9 kg 110.9 kg Intake: IV 240 Sodium Chloride 0.9% 1, 240 000 ml @ 20 mls/hr IV . Q24H PHILLY Rx#:[id number] Intake, IV Titration 100 Amount ceFAZolin 2 gm In Sodium 50 Chloride 0.9% 50 ml @ 100 mls/hr IVPB Q8HR PHILLY Rx# :[id number] cefTRIAXone 2 gm In 50 Sodium Chloride 0.9% 50 ml @ 100 mls/hr IVPB Q24HR PHILLY Rx#:[id number] Oral 750 480 Output: Urine 440 675 175 Other: Voiding Method Urinal Urinal # Voids 3 5 1 # Bowel Movements 1 - Labs CBC & Chem 7: 08/20/19 06:49 08/20/19 06:49 Labs: Abnormal Lab Results - Last 24 Hours (Table) 08/20/19 08/20/19 08/20/19 Range/Units 00:14 00:43 06:49 RBC 2.94 L (4.30-5.90) m/uL Hgb 10.2 L (13.0-17.5) gm/dL Hct 30.9 L (39.0-53.0) % MCV 105.0 H (80.0-100.0) fL RDW 15.6 H (11.5-15.5) % Sodium 134 L (137-145) mmol/L Carbon Dioxide (22-30) mmol/L BUN 41 H (9-20) mg/dL Glucose 101 H (74-99) mg/dL POC Glucose (mg/dL) 108 H (75-99) mg/dL 08/20/19 Range/Units 06:49 RBC (4.30-5.90) m/uL Hgb (13.0-17.5) gm/dL Hct (39.0-53.0) % MCV (80.0-100.0) fL RDW (11.5-15.5) % Sodium 136 L (137-145) mmol/L Carbon Dioxide 32 H (22-30) mmol/L BUN 40 H (9-20) mg/dL Glucose (74-99) mg/dL POC Glucose (mg/dL) (75-99) mg/dL Microbiology - Last 24 Hours (Table) 08/17/19 17:00 Gram Stain - Final Leg - Left Wound Culture - Final
[2019-08-20] MEDS ORDERED: traMADol 50 MG TAB PO SCH (16:00)
--- NOTE | 2019-08-20 18:09 | PN ---
PROGRESS NOTE DATE OF SERVICE: 08/20/2019. REASON FOR FOLLOWUP: Bilateral lower extremity wounds and cellulitis. INTERVAL HISTORY: The patient is currently afebrile, has been complaining of some nausea today but no vomiting. The patient denies having any chest pain or shortness of breath or cough. No abdominal pain or any worsening pain to the leg wound areas. PHYSICAL EXAMINATION: Blood pressure 121/76, pulse of 63, temperature 98.2. He is 98% on room air. General description is an elderly male lying in bed in no distress. RESPIRATORY SYSTEM: Unlabored breathing. Clear to auscultation anteriorly. HEART: S1, S2. Regular rate and rhythm. ABDOMEN: Soft. No tenderness. Legs are currently wrapped up. There is no drainage on the dressing. LABS: Hemoglobin is 10.2, white count 7.7, BUN of 14, creatinine 1.0. DIAGNOSTIC IMPRESSION AND PLAN: Patient with bilateral lower extremity superficial ulcerations from ruptured blisters with secondary cellulitis. Patient is currently covered with Cefazolin; to continue. Local wound care with a dry Aquacel Silver dressing and Tex wrap and monitor his clinical course closely. Continue with supportive care. at the bedside. Questions were answered. MMODL / IJN: [id number] /
[2019-08-21] MEDS: SUCRALFATE 1 GM TAB PO SCH ×3 (05:17→16:55)
[2019-08-21] MEDS: MIDODRINE 5 MG TAB PO SCH ×3 (05:17→16:55)
[2019-08-21] MEDS: LEVOTHYROXINE 25 MCG TAB PO SCH (05:17)
[2019-08-21] MEDS: APIXABAN 5 MG TAB PO SCH ×2 (09:29→20:01)
[2019-08-21] MEDS: LISINOPRIL 2.5 MG TAB PO SCH (09:30)
[2019-08-21] MEDS: METOPROLOL SUCCINATE (ER) 25 MG TAB.ER.24H PO SCH (09:30)
[2019-08-21] MEDS: SENNOSIDES-DOCUSATE SODIUM 1 EACH TAB PO SCH (09:30)
[2019-08-21] MEDS: MAGNESIUM OXIDE 400 MG TAB PO SCH (09:30)
[2019-08-21] MEDS: LIDOCAINE 5% PATCH TOPICAL SCH (09:30)
[2019-08-21] MEDS: SODIUM CHLORIDE 0.9% 1,000 ML IV SCH (09:31)
[2019-08-21] MEDS: SOTALOL 80 MG TAB PO SCH ×2 (09:31→20:01)
[2019-08-21] MEDS: traMADol 50 MG TAB PO SCH ×3 (09:31→21:06)
[2019-08-21] MEDS: TAMSULOSIN 0.4 MG CAP.ER.24H PO SCH ×2 (09:31→20:01)
[2019-08-21] MEDS: SPIRONOLACTONE 25 MG TAB PO SCH (09:31)
[2019-08-21] MEDS: FUROSEMIDE 40 MG TAB PO SCH (10:22)
--- NOTE | 2019-08-21 12:41 | P.PN ---
Subjective Progress Note Date: 08/21/19 On this is an 84-year-old male patient of Dr. Mosqueda with past medical history of paroxysmal atrial fibrillation status post cardiac ablation in 2007 as well as cardioversions a couple times since then, hypertension, osteoarthritis, obstructive sleep apnea but not currently on a CPAP, psoriasis, hard of hearing. Patient's gives history that patient wasn't [facility] one month ago and was on a heparin drip and Lasix drip was treated for heart failure. He had a hematoma develop on the left hip without any fall and it was causing difficulty walking ended up going to rehab at [facility]. While he was at [facility] she states that his kidney function was affected. On Saturday he went home and starting on Saturday he was feeling bad. He saw cardiology in the office and he was started on digoxin which she read see one dose at home and then he was called on Saturday that his lab work was abnormal, blood pressure was on the lower side anyway and patient was told to come into the hospital. Patient has not been on any recent steroids. He denies any blood or tarry stools. He denies any chest pain, palpitations. He states he feels weak. He does have chronic lower extremity wounds. Patient came into [facility] emergency center for evaluation. He was afebrile, initial blood pressure 86/45, heart rate 67. EKG was atrial fibrillation with RVR at 158. Patient was started on Cardizem bolus and drip. CBC within normal limits, BUN 112, creatinine 1.69, sodium 134, potassium 3.3, chloride 94, CO2 31, blood sugar 115. Magnesium 2.9. Troponins negative on 3 draws. Triglycerides 81, cholesterol 165, LDL 104, HDL 45. Patient was ad mitted to the cardiac stepdown unit and cardiology consult requested. 08/16: Patient remains in A. fib with RVR with heart rate running [id number] up to 144 intermittently. He he is currently on heparin drip and Cardizem 30 mg 3 times daily oral. Cardiology has transitioned heparin to eliquis and resumed on Metoprolol XL increased dose to 50 mg daily, 1 dose of Lopressor 25 mg, started amiodarone 400 mg twice daily and Digoxin 250 g oral daily. Eliquis has been prescribed to the patient's pharmacy to check coverage Patient has been afebrile, blood pressure 105/55, pulse ox 95% on room air. WBC 7.3, hemoglobin 11.1, platelet count 181. Sodium 135, potassium 3.8, chloride 99, CO2 36, BUN 1261 and creatinine 0.94, blood sugar 114. Patient is complaining of pain pill tramadol not holding him and will increase to this to 4 times daily. 08/17: TSH 5.290 and patient started on levothyroxine 25 g daily. Patient has lower extremity edema and significant drainage from the right leg. Lasix will be increased to 40 mg oral twice daily and midodrine increased to 10 mg three times daily. Cardiology has increased frequency of Toprol-XL 50 mg twice daily and added spironolactone to start tomorrow. Patient is also followed by wound care. Wound culture to be obtained. He has been afebrile, heart rate 108, blood pressure 111/59, pulse ox 97% on room air. 08/18: Limited echocardiogram revealed EF between 30 and 35%. On consult with Dr. Lima performed yesterday for treatment of atrial fibrillation and consideration for permanent pacemaker implantation and subsequent AV node ablation. Medication changes were made yesterday by Dr. Lima. Patient's spironolactone was increased to 25 mg daily, sotalol 80 mg twice daily added. Recommend BRIAN electrocardioversion and reassess LV function in sinus rhythm. Monitor renal function closely on sotalol and QT prolongation. After cardioversion, may decrease metoprolol depending on blood pressure. No plan at this point for device implantation. Patient has been afebrile, heart rate running between 104 117, blood pressure 111/60, pulse ox 93% on room air. Repeat blood work reveals a CBC 7.5, hemoglobin 10.4, sodium 133, potassium 4.1, chloride 99, CO2 29, BUN 44 and creatinine 0.92. Patient is scheduled for BRIAN and cardioversion tomorrow. Patient denies any chest pain or shortness of breath, no palpitations. His heart rate remains elevated and he is complaining of nausea today which is new. He has pain in the lower extremities which is been chronic and a uric acid will be checked. [employer] is $48 per month and patient agrees to the cost. 08/19: Patient underwent successful cardioversion this morning into a sinus rhythm. BRIAN revealed moderate tricuspid regurgitation, moderate aortic regurgitation, left ventricular function moderately to severely impaired. Repeat echocardiogram has been ordered. The patient has been seen by Dr. Kilpatrick for lower extremity ulcers and cellulitis. Recommend cefazolin 2 g every 8 hours and dry Aquacel Ag dressing and compression. Heart rate is currently in the 60s to 70s, blood pressure 110/55, pulse ox 95% on room air. Patient denies any new complaints. No chest pain, shortness of breath, no lightheadedness or dizziness. 08/20: Patient is complaining of significant pain to his lower extremities especially on the left side. We will increase tramadol to 100 mg 3 times daily starting now. Patient is also complaining of nausea but due to QT prolongation, Tigan oral 300 mg scheduled 3 times daily will be added. Patient has been afebrile, heart rate 67, blood pressure 111/46, pulse ox 96% on room air. Heart rate has been as low as 40s and 50s, sinus rhythm. WBC 7.7, hemoglobin 10.2, platelet count 214. Sodium 136, potassium 4.4, chloride 101, CO2 32, BUN 40 and creatinine 1.0. Cardiology has placed metoprolol on hold due to bradycardia . Limited echocardiogram reveals EF of 40-45%. Patient may require pacemaker implantation. 08/21: Patient's heart rate was running low yesterday and metoprolol was held with improvement of his heart rate running in the 50s and 60s today. Dr. Lima has resumed Toprol-XL at much lower dose of 12.5 mg daily. Blood pressure 127/51, pulse ox 95% on room air, afebrile. We'll plan to increase Lasix to 60 mg oral twice daily. Wound culture was finalized with normal skin zohra. Dr. Kilpatrick is following for lower extremity wounds the patient is currently on Kefzol with plan for Keflex at time of discharge. The patient denies any new complaints. No chest pain or shortness of breath. Await further recommendations from cardiology. Anticipate possible discharge in the next 24 hours. Review of Systems Constitutional: Denies anorexia, Denies chills, Denies fatigue, Denies fever, Denies lethargy, reports alaise, Denies poor appetite Ears, nose, mouth and throat: Denies headache, Denies nasal congestion, Denies nasal discharge, Denies sore throat, Denies vertigo Cardiovascular: Denies chest pain, Denies decreased exercise tolerance, Denies dyspnea on exertion, reports edema, reports leg edema, Denies lightheadedness, Denies shortness of breath, Denies syncope Respiratory: Denies cough with sputum, Reports sleep apnea, Denies dyspnea, Denies excessive sputum, Denies hemoptysis Gastrointestinal: Denies abdominal pain, Denies diarrhea, Denies loss of appeti te, reports nausea, Denies vomiting Genitourinary: Denies dysuria, Denies urinary retention Musculoskeletal: Denies frequent falls, Denies gait dysfunction, Denies muscle weakness, Denies myalgias, reports pain to the bilateral lower legs Integumentary: Denies pruritus, Denies rash, reports wounds Neurological: Denies change in mentation, Denies change in speech, Denies double vision, Denies numbness, Denies vertigo, Denies weakness Psychiatric: Denies anxiety, Denies depression Endocrine: Denies fatigue, Denies weight change Objective - Vital Signs Vital signs: Vital Signs Temp 98.2 F 08/21/19 04:00 Pulse 55 L 08/21/19 04:00 Resp 18 08/21/19 04:00 BP 143/61 08/21/19 04:00 Pulse Ox 95 08/21/19 04:00 Intake & Output 08/20/19 08/21/19 08/21/19 18:59 06:59 18:59 Intake Total 840 240 Output Total 375 475 Balance 465 -475 240 Weight 110.9 kg 110.43 kg Intake: Oral 840 240 Output: Urine 375 475 Other: Voiding Method Urinal Urinal # Voids 1 2 - Exam Gen: This is an 84-year-old male. He is sitting up in a chair and appears to be comfortable and in no acute distress. No respiratory distress is noted. HEENT: Head is atraumatic, normocephalic. Pupils equal, round. Sclerae is anicteric. NECK: Supple. No JVD. No lymphadenopathy. No thyromegaly. LUNGS: Clear to auscultation. No wheezes or rhonchi. No intercostal retractions. HEART: Irregularly irregular rate and rhythm. Systolic murmur. ABDOMEN: Soft. Bowel sounds are present. No masses. No tenderness. EXTREMITIES: Bilateral lower extremity pedal edema. No calf tenderness. Multiple lower extremity wounds and serous weeping. NEUROLOGICAL: Patient is awake, alert and oriented x3. Cranial nerves 2 through 12 are grossly intact. - Labs CBC & Chem 7: 08/20/19 06:49 08/20/19 06:49 Assessment and Plan Plan: 1. Atrial fibrillation with RVR. Patient is now in a normal sinus rhythm Continue eliquis 5 mg twice daily, Sotalol 80 mg twice daily, Toprol XL resumed at a much lower dose of 12.5 mg, continue aldactone 25 mg daily. Status post BRIAN and electrical cardioversion. 2. Paroxysmal atrial fibrillation. Continue as above. 3. Obstructive sleep apnea. Patient will need to use the CPAP. 4. Hypertension. Continue Cardizem, Lasix. Patient currently on midodrine twice daily 5. Benign prostatic hypertrophy. Monitor for urinary retention. Continue Flomax 0.4 mg twice daily. 6. 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 Consult with wound care today. Continue local wound care. Lasix 40 mg oral twice daily and midodrine increased to 10 mg 3 times daily. Consult with Dr. Kilpatrick appreciated. Patient started on Kefzol. Wound culture in progress. Dr. Kilpatrick has recommended Keflex at the time of discharge. 7. GI prophylaxis. Pepcid 20 mg orally once every day. 8. DVT prophylaxis. Eliquis 9. Hypothyroidism. Start levothyroxine 25 mcg daily. Discharge plan: Home with [facility] Impression and plan of care have been directed as dictated by the signing physician. Urmila Carey nurse practitioner acting as scribe for signing physician.
--- NOTE | 2019-08-21 14:55 | P.PN ---
Subjective Progress Note Date: 08/21/19 This is a 84-year-old gentleman with history of persistent/chronic atrial fibrillation who was admitted to the hospital with hypotension, dehydration and renal failure and also atrial fibrillation with RVR. Patient was gradually hydrated and was started on sotalol. Patient had a cardioversion and is wesley ntaining sinus rhythm. He is feeling slightly better. His edema in the legs has improved. Repeat echo Cardigan showed an ejection fraction about 40-45%. His heart rate dependent to 40s. Dose of the Lopressor has been cut back. His heart rate today is in the high 50s and 60s. Blood pressure 120/70. Patient doesn't appear to be in acute distress. We'll continue his current medical therapy and continue to monitor his EKGs. If stable, probably could go home on Saturday Objective - Vital Signs Vital signs: Vital Signs Temp 98.2 F 08/21/19 11:26 Pulse 63 08/21/19 11:26 Resp 18 08/21/19 11:26 BP 127/51 08/21/19 11:26 Pulse Ox 95 08/21/19 11:26 Intake & Output 08/20/19 08/21/19 08/21/19 18:59 06:59 18:59 Intake Total 840 480 Output Total 375 475 Balance 465 -475 480 Weight 110.9 kg 110.43 kg Intake: Oral 840 480 Output: Urine 375 475 Other: Voiding Method Urinal Urinal Urinal # Voids 1 2 - Exam GENERAL EXAM: Patient is alert and oriented and doesn't appear to be in any acute distress HEENT: Normocephalic. Normal reaction of pupils, equal size, normal range of extraocular motion. No erythema or exudates in the throat. NECK: No masses, no nuchal rigidity. CHEST: No chest wall deformity. LUNGS: Equal air entry with no crackles or wheeze. HEART: S1 and S2 normal with no audible mumurs or gallops. Regular rhythm, femorals equal on both sides.. ABDOMEN: No hepatosplenomegaly, normal bowel sounds, no guarding or rigidity. SKIN: No rashes CENTRAL NERVOUS SYSTEM: No focal deficits. EXTREMITIES: Improving edema - Labs CBC & Chem 7: 08/20/19 06:49 08/20/19 06:49 Assessment and Plan (1) Renal failure Current Visit: Yes Status: Acute Code(s): N19 - UNSPECIFIED KIDNEY FAILURE SNOMED Code(s): 29173476 (2) Atrial fibrillation with RVR Current Visit: Yes Status: Acute Code(s): I48.91 - UNSPECIFIED ATRIAL FIBRILLATION SNOMED Code(s): 804643113762731 (3) Chronic venous hypertension w/ulcer and inflammation involv both sides Current Visit: Yes Status: Acute Code(s): I87.333 - CHRONIC VENOUS HTN W ULCER AND INFLAM OF BILATERAL LOW EXTRM; L97.919 - NON-PRS CHRONIC ULC UNSP PRT OF R LOW LEG W UNSP SEVERITY; L97.929 - NON-PRS CHRONIC ULC UNSP PRT OF L LOW LEG W UNSP SEVERITY SNOMED Code(s): 683490538 Plan: Patient is feeling better. Continue current medical therapy with a low dose of beta ann. Continue to monitor his EKGs. Possible discharge home on Saturday
[2019-08-21] MEDS: FUROSEMIDE 20 MG TAB PO SCH (14:59)
--- NOTE | 2019-08-21 21:14 | PN ---
PROGRESS NOTE DATE OF SERVICE: 08/21/2019. REASON FOR FOLLOWUP: Bilateral lower extremity venous stasis ulcer and cellulitis. INTERVAL HISTORY: The patient is currently afebrile, has been breathing comfortably. She is complaining of some pain around the ankle area. No chest pain, shortness of breath or cough. No abdominal pain. No diarrhea. PHYSICAL EXAMINATION: Blood pressure 136/66, pulse of 59, temperature 98.8. He is 97% on room air. General description is an elderly male lying in bed in no distress. Respiratory system: Unlabored breathing. Clear to auscultation anteriorly. Heart S1, S2 regular rate and rhythm. Abdomen is soft, no tenderness. Legs wound have shown overall clinical improvement and swelling and redness has improved. LABS: Hemoglobin is 10.1, white count 7.7, BUN of 40, creatinine 1.01. Wound cultures have been negative. DIAGNOSTIC IMPRESSION AND PLAN: Patient with bilateral lower extremity superficial wound from ruptured blister with secondary cellulitis.. Culture has been negative for resistant pathogen. Patient is covered with Cefazolin; to continue local care to continue with Aquacel dressing and Tex wrap. Finish therapy with oral Keflex. Family at the bedside. Questions and concerns were answered. MMODL / IJN: [id number] /
[2019-08-22] MEDS: ACETAMINOPHEN TAB 325 MG TAB PO PRN (02:23)
[2019-08-22] MEDS: SUCRALFATE 1 GM TAB PO SCH ×3 (06:22→18:28)
[2019-08-22] MEDS: LEVOTHYROXINE 25 MCG TAB PO SCH (06:22)
[2019-08-22] MEDS: MIDODRINE 5 MG TAB PO SCH ×3 (06:22→14:38)
[2019-08-22 06:42] LABS: HCT 31.2 % (39.0-53.0); HGB 10.5 gm/dL (13.0-17.5); MCH 34.9 pg (25.0-35.0); MCHC 33.5 g/dL (31.0-37.0); MCV 104.1 fL (80.0-100.0); Macrocytosis Moderate; Mean Platelet Volume 7.2; Platelet Count 239 k/uL (150-450); RBC 2.99 m/uL (4.30-5.90); RDW 15.4 % (11.5-15.5); WBC 6.5 k/uL (3.8-10.6)
[2019-08-22 06:50] LABS: African American GFR (CKD) >90 (>60 ml/min/1.73 sqM); Anion Gap 1 mmol/L; Blood Urea Nitrogen 36 mg/dL (9-20); Calcium 8.4 mg/dL (8.4-10.2); Carbon Dioxide 33 mmol/L (22-30); Chloride 101 mmol/L (98-107); Glucose 88 mg/dL (74-99); Non-African American GFR(CKD) 80 (>60 ml/min/1.73 sqM); Potassium 4.4 mmol/L (3.5-5.1); Sodium 135 mmol/L (137-145)
[2019-08-22] MEDS: LISINOPRIL 2.5 MG TAB PO SCH (08:07)
[2019-08-22] MEDS: traMADol 50 MG TAB PO SCH ×3 (08:07→20:47)
[2019-08-22] MEDS: FUROSEMIDE 20 MG TAB PO SCH ×2 (08:07→14:35)
[2019-08-22] MEDS: SENNOSIDES-DOCUSATE SODIUM 1 EACH TAB PO SCH (08:08)
[2019-08-22] MEDS: MAGNESIUM OXIDE 400 MG TAB PO SCH (08:08)
[2019-08-22] MEDS: TAMSULOSIN 0.4 MG CAP.ER.24H PO SCH ×2 (08:08→20:47)
[2019-08-22] MEDS: METOPROLOL SUCCINATE (ER) 25 MG TAB.ER.24H PO SCH (08:08)
[2019-08-22] MEDS: APIXABAN 5 MG TAB PO SCH ×2 (08:08→20:46)
[2019-08-22] MEDS: SOTALOL 80 MG TAB PO SCH ×2 (08:08→20:46)
[2019-08-22] MEDS: SPIRONOLACTONE 25 MG TAB PO SCH (08:08)
[2019-08-22] MEDS: SODIUM CHLORIDE 0.9% 1,000 ML IV SCH (08:09)
[2019-08-22] MEDS: LIDOCAINE 5% PATCH TOPICAL SCH (08:13)
--- NOTE | 2019-08-22 14:31 | P.PN ---
Subjective Progress Note Date: 08/22/19 Principal diagnosis: A. fib with RVR, A. fib cardiopathy, obstructive sleep apnea, lower extremity vascular ulcer and cellulitis, anasarca, chronic kidney disease, hypothyroidism, COPD and CHF. On this is an 84-year-old male patient of Dr. Mosqueda with past medical history of paroxysmal atrial fibrillation status post cardiac ablation in 2007 as well as cardioversions a couple times since then, hypertension, osteoarthritis, obstructive sleep apnea but not currently on a CPAP, psoriasis, hard of hearing. Patient's gives history that patient wasn't [facility] one month ago and was on a heparin drip and Lasix drip was treated for heart failure. He had a hematoma develop on the left hip without any fall and it was causing difficulty walking ended up going to rehab at [facility]. While he was at [facility] she states that his kidney function was affected. On Saturday he went home and starting on Saturday he was feeling bad. He saw cardiology in the office and he was started on digoxin which she read see one dose at home and then he was called on Saturday that his lab work was abnormal, blood pressure was on the lower side anyway and patient was told to come into the hospital. Patient has not been on any recent steroids. He denies any blood or tarry stools. He denies any chest pain, palpitations. He states he feels weak. He does have chronic lower extremity wounds. Patient came into [facility] emergency center for evaluation. He was afebrile, initial blood pressure 86/45, heart rate 67. EKG was atrial fibrillation with RVR at 158. Patient was started on Cardizem bolus and drip. CBC within normal limits, BUN 112, creatinine 1.69, sodium 134, potassium 3.3, chloride 94, CO2 31, blood sugar 115. Magnesium 2.9. Troponins negative on 3 draws. Triglycerides 81, cholesterol 165, LDL 104, HDL 45. Patient was admitted to the cardiac stepdown unit and cardiology consult requested. 08/16: Patient remains in A. fib with RVR with heart rate running [id number] up to 144 intermittently. He he is currently on heparin drip and Cardizem 30 mg 3 times daily oral. Cardiology has transitioned heparin to eliquis and resumed on Metoprolol XL increased dose to 50 mg daily, 1 dose of Lopressor 25 mg, started amiodarone 400 mg twice daily and Digoxin 250 g oral daily. Eliquis has been prescribed to the patient's pharmacy to check coverage Patient has been afebrile, blood pressure 105/55, pulse ox 95% on room air. WBC 7.3, hemoglobin 11.1, platelet count 181. Sodium 135, potassium 3.8, chloride 99, CO2 36, BUN 1261 and creatinine 0.94, blood sugar 114. Patient is complaining of pain pill tramadol not holding him and will increase to this to 4 times daily. 08/17: TSH 5.290 and patient started on levothyroxine 25 g daily. Patient has lower extremity edema and significant drainage from the right leg. Lasix will be increased to 40 mg oral twice daily and midodrine increased to 10 mg three times daily. Cardiology has increased frequency of Toprol-XL 50 mg twice daily and added spironolactone to start tomorrow. Patient is also followed by wound care. Wound culture to be obtained. He has been afebrile, heart rate 108, blood pressure 111/59, pulse ox 97% on room air. 08/18: Limited echocardiogram revealed EF between 30 and 35%. On consult with Dr. Lima performed yesterday for treatment of atrial fibrillation and consideration for permanent pacemaker implantation and subsequent AV node ablation. Medication changes were made yesterday by Dr. Lima. Patient's s pironolactone was increased to 25 mg daily, sotalol 80 mg twice daily added. Recommend BRIAN electrocardioversion and reassess LV function in sinus rhythm. Monitor renal function closely on sotalol and QT prolongation. After cardioversion, may decrease metoprolol depending on blood pressure. No plan at this point for device implantation. Patient has been afebrile, heart rate running between 104 117, blood pressure 111/60, pulse ox 93% on room air. Repeat blood work reveals a CBC 7.5, hemoglobin 10.4, sodium 133, potassium 4.1, chloride 99, CO2 29, BUN 44 and creatinine 0.92. Patient is scheduled for BRIAN and cardioversion tomorrow. Patient denies any chest pain or shortness of breath, no palpitations. His heart rate remains elevated and he is complaining of nausea today which is new. He has pain in the lower extremities which is been chronic and a uric acid will be checked. Eliquis is $48 per month and patient agrees to the cost. 08/19: Patient underwent successful cardioversion this morning into a sinus rhythm. BRIAN revealed moderate tricuspid regurgitation, moderate aortic regurgitation, left ventricular function moderately to severely impaired. Repeat echocardiogram has been ordered. The patient has been seen by Dr. Kilpatrick for lower extremity ulcers and cellulitis. Recommend cefazolin 2 g every 8 hours and dry Aquacel Ag dressing and compression. Heart rate is currently in the 60s to 70s, blood pressure 110/55, pulse ox 95% on room air. Patient denies any new complaints. No chest pain, shortness of breath, no lightheadedness or dizziness. 08/20: Patient is complaining of significant pain to his lower extremities especially on the left side. We will increase tramadol to 100 mg 3 times daily starting now. Patient is also complaining of nausea but due to QT prolongation, Tigan oral 300 mg scheduled 3 times daily will be added. Patient has been afebrile, heart rate 67, blood pressure 111/46, pulse ox 96% on room air. Heart rate has been as low as 40s and 50s, sinus rhythm. WBC 7.7, hemoglobin 10.2, platelet count 214. Sodium 136, potassium 4.4, chloride 101, CO2 32, BUN 40 and creatinine 1.0. Cardiology has placed metoprolol on hold due to bradycardia . Limited echocardiogram reveals EF of 40-45%. Patient may require pacemaker implantation. 08/21: Patient's heart rate was running low yesterday and metoprolol was held with improvement of his heart rate running in the 50s and 60s today. Dr. Lima has resumed Toprol-XL at much lower dose of 12.5 mg daily. Blood pressure 127/51, pulse ox 95% on room air, afebrile. We'll plan to increase Lasix to 60 mg oral twice daily. Wound culture was finalized with normal skin zohra. Dr. Kilpatrick is following for lower extremity wounds the patient is currently on Kefzol with plan for Keflex at time of discharge. The patient denies any new complaints. No chest pain or shortness of breath. Await further recommendations from cardiology. Anticipate possible discharge in the next 24 hours. 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 If he does well hopefully will be discharge on Saturday. Objective - Vital Signs Vital signs: Vital Signs Temp 98.3 F 08/22/19 12:00 Pulse 64 08/22/19 12:00 Resp 18 08/22/19 12:00 BP 126/58 08/22/19 12:00 Pulse Ox 97 08/22/19 12:00 Intake & Output 08/21/19 08/22/19 08/22/19 18:59 06:59 18:59 Intake Total 820 240 Output Total 875 Balance 820 -875 240 Weight 115 kg Intake: IV 100 ceFAZolin 2 gm In Sodium 100 Chloride 0.9% 50 ml @ 100 mls/hr IVPB Q8HR [facility] Rx# :[id number] Oral 720 240 Output: Urine 875 Other: Voiding Method Urinal Urinal # Voids 1 4 # Bowel Movements 1 1 - Exam Review of system: CONSTITUTIONAL: Elderly overweight no acute respiratory distress. EYES: No icterus sclerae, no conjunctivitis. EARS, NOSE, MOUTH, THROAT, and FACE: No sore throat, lymphadenopathy, carotid bruits or deformity. RESPIRATORY: Positive PND orthopnea cough. Positive wheezes CARDIOVASCULAR: Positive PND orthopnea palpitation or angina. GASTROINTESTINAL: No Abd pain, Nausea or vomiting, no Diarrhea or constipation, No GI Bleed, no distention or masses. GENITOURINARY: Negative for Hematuria or UTI, no kidney stones. INTEGUMENT/BREAST: Positive vascular Celexa the lower extremity with chronic ulcer in both legs worse in the left than the right side. HEMATOLOGIC/LYMPHATIC: Negative for bleed or purpura. MUSCULOSKELTAL: Negative for Myalgia or arthralgia. NEURLOGICAL: No LOC, Sz or syncope, blurred vision dizziness or abnormality.. BEHAVIORAL/PSYCH: Negative. ENDOCRINE: Negative. Physical examination: General Appearance: Alert, cooperative, no distress, mildly overweight elderly Neck HEENT: Supple, no lymphadenopathy, no thyroid enlargement, no carotid bruits. Lungs: Decreased expansion bilaterally with fine rhonchi positive mild crackles and rhonchi in the bases. Chest Wall: Decrease expansion with deep inspiration no tenderness and no deformity was found on exam, no costochondral pain or discomfort. Heart: Irregular rate and rhythm, S1, S2 positive S3 +5 cm JVD with systolic murmur. Back: Symmetric, no curvature, ROM normal, no CVA tenderness. Abdomen: Soft, non-tender, bowel sounds active all four quadrants, no masses, no organomegaly. Extremities: Significant edema more in the right than the left side, positive vascular cellulitis with 3 ulcerated area on the left leg around the ankle area H1 measure 1 time 1 inch in size right side had 1+ edema with slight vascular dermatitis of saliva so as well but slightly but better. Pulses: 2+ and symmetric. Skin: Skin color, texture, tugor normal, no rashes or lesions. Neurologic: Alert oriented x3 cranial nerves II through XII intact, no motor deficit, no abnormal balance or gait. - Labs CBC & Chem 7: 08/22/19 06:20 08/22/19 06:20 Labs: Abnormal Lab Results - Last 24 Hours (Table) 08/22/19 08/22/19 Range/Units 06:20 06:20 RBC 2.99 L (4.30-5.90) m/uL Hgb 10.5 L (13.0-17.5) gm/dL Hct 31.2 L (39.0-53.0) % MCV 104.1 H (80.0-100.0) fL Sodium 135 L (137-145) mmol/L Carbon Dioxide 33 H (22-30) mmol/L BUN 36 H (9-20) mg/dL Assessment and Plan Plan: 1 A. fib with RVR: Patient is back into sinus rhythm, still on anticoagulation with Eliquis 5 mg twice a day along with sotalol 80 mg twice a day and metoprolol 12.5 mg daily. Patient is doing slightly but better. 2 cardiomyopathy: Secondary to arrhythmia with low ejection fraction was measured [facility] 6 weeks ago to be 25% only has improved so far since the A. fib is treated EF is up to 40 percentile medication. 3 atherosclerotic heart disease: Remain on treatment management tolerating his medication well. 4 CHF: Mostly diastolic dysfunction with systolic dysfunction congestive heart failure: Remain on Demadex as an outpatient but he is on furosemide in the hospital along with metoprolol, Aldactone and watching for any fluid overload. 5 hypotension: Remain using midodrine as needed. 6 anasarca: Remain on Aldactone and furosemide swellings much better so far. 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 8 CK D: Not any worse at this point. 9 be benign prostatic hypertrophy with urinary retention: Remain on Flomax doing better. 10 obstructive sleep apnea: Using CPAP on regular basis. 11 hypothyroidism: Remain on levothyroxine 25 g daily. 12 wound care: Patient will continue to have topical wound care in the floor and when he leaves the hospital he will have VNA. CODE STATUS: DO NOT RESUSCITATE. Discharge expectation: Most likely home on Saturday.
--- NOTE | 2019-08-22 15:00 | P.PN ---
Subjective Progress Note Date: 08/22/19 Principal diagnosis: Afiv RVR / s/p BRIAN with cardioversion PROGRESS NOTE 08/22/19 84-year-old gentleman with history of persistent/chronic afib s/p prior ablation admitted with hypotension, dehydration, ARF and atrial fibrillation with RVR. Patient is s/p BRIAN with cardioversion and is maintaining sinus bradycardia. Most recent EF at 40-45%. Patient currently sitting in chair in no acute distress. Patient has no current complaints of chest pain, chest pressure, shortness of breath or palpitations. Lower extremity edema is improved but remains, legs are wrapped with shakila wrap. Patient does remain bradycardic on telemetry, heart rate currently 56. Pt is on sotalol 80 mg twice daily and metoprolol tartrate 12.5 mg daily. VSS, 97% on RA. PHYSICAL EXAMINATION: HEENT: Head is atraumatic, normocephalic. Pupils are equal, round. Sclerae anicteric. Conjunctivae are clear. Mucous membranes of the mouth are moist. Neck is supple. There is no jugular venous distention. No carotid bruit is heard. No thyromegaly. LUNGS: Clear to auscultation no wheezes, rales or rhonchi. No chest wall tenderness is noted on palpation or with deep breathing. HEART: Regular rate and rhythm without murmurs, rubs or gallops. S1 and S2 heard. ABDOMEN: Abdominal exam revealed normal bowel sounds. The abdomen was soft, non- tender, and without masses, organomegaly, or appreciable enlargement of the abdominal aorta. EXTREMITIES: Examination of the extremities revealed easily palpable radial, femoral and pedal pulses. There was no cyanosis or clubbing. Moderate edema to BLE. No calf tenderness noted. VASCULAR: Radial and dorsalis pedis pulses palpated, no evidence of clubbing. NEUROLOGIC: Patient is awake, alert and oriented x3. There were no obvious focal neurologic abnormalities. LAB DATA: Hgb 10.5, HCT 31.2. Sodium 135. BUN 36, CR 0.89. FINAL IMPRESSION: 1. A. fib RVR S/P cardioversion 2. hypotension 3. EF 4045%. 4. lower extremity edema 5. acute renal failure PLAN: Stop metoprolol tartrate 12.5 mg once daily. Continue same all other medical/medication regime. Heart healthy low-salt diet. Repeat BMP/BNP/mag level in a.m. Objective - Vital Signs Vital signs: Vital Signs Temp 98.3 F 08/22/19 12:00 Pulse 64 08/22/19 12:00 Resp 18 08/22/19 12:00 BP 126/58 08/22/19 12:00 Pulse Ox 97 08/22/19 12:00 Intake & Output 08/21/19 08/22/19 08/22/19 18:59 06:59 18:59 Intake Total 820 240 Output Total 875 Balance 820 -875 240 Weight 115 kg Intake: IV 100 ceFAZolin 2 gm In Sodium 100 Chloride 0.9% 50 ml @ 100 mls/hr IVPB Q8HR [facility] Rx# :[id number] Oral 720 240 Output: Urine 875 Other: Voiding Method Urinal Urinal # Voids 1 4 # Bowel Movements 1 1 - Labs CBC & Chem 7: 08/22/19 06:20 08/22/19 06:20 Labs: Abnormal Lab Results - Last 24 Hours (Table) 08/22/19 08/22/19 Range/Units 06:20 06:20 RBC 2.99 L (4.30-5.90) m/uL Hgb 10.5 L (13.0-17.5) gm/dL Hct 31.2 L (39.0-53.0) % MCV 104.1 H (80.0-100.0) fL Sodium 135 L (137-145) mmol/L Carbon Dioxide 33 H (22-30) mmol/L BUN 36 H (9-20) mg/dL
--- NOTE | 2019-08-23 02:19 | PN ---
PROGRESS NOTE DATE OF SERVICE: 08/22/2019 REASON FOR FOLLOWUP: Bilateral lower extremity ulcers and cellulitis. INTERVAL HISTORY: The patient is currently afebrile, has been breathing comfortably. He is complaining of more pain to the ankle area. Overall swelling and redness of the leg have decreased. Minimal drainage. Denies any chest pain, shortness of breath or cough. No abdominal pain, no diarrhea. PHYSICAL EXAMINATION: Blood pressure 95/51 with a pulse of 83, temperature 98.4. He is 94% on room air. General description is an elderly male up in the chair in no distress. Respiratory system: Unlabored breathing, clear to auscultation anteriorly. Heart S1, S2. Regular rate and rhythm. Abdomen soft. No tenderness. Bilateral leg wounds have dried out. The redness has improved. Still has some swelling. No foul smelling drainage. LABS: Hemoglobin is 10.5, white count 6.5, BUN of 36, creatinine 0.89. Wound culture has been negative. DIAGNOSTIC IMPRESSION AND PLAN: Patient with bilateral lower extremity pressure ulceration with secondary cellulitis. Culture has been negative for resistant pathogen. Patient is covered with Cefazolin. Local wound care to continue with Aquacel Silver dressing and Tex wrap to keep the swelling down and monitor his clinical course closely. Continue supportive care. MMODL / IJN: [id number] /
[2019-08-23] MEDS: MIDODRINE 5 MG TAB PO SCH ×3 (06:19→14:34)
[2019-08-23] MEDS: LEVOTHYROXINE 25 MCG TAB PO SCH (06:19)
[2019-08-23] MEDS: SUCRALFATE 1 GM TAB PO SCH ×3 (06:19→14:34)
[2019-08-23 06:27] LABS: African American GFR (CKD) >90 (>60 ml/min/1.73 sqM); Anion Gap 4 mmol/L; Blood Urea Nitrogen 33 mg/dL (9-20); Calcium 8.6 mg/dL (8.4-10.2); Carbon Dioxide 33 mmol/L (22-30); Chloride 98 mmol/L (98-107); Glucose 98 mg/dL (74-99); Magnesium 2.1 mg/dL (1.6-2.3); Non-African American GFR(CKD) 80 (>60 ml/min/1.73 sqM); Potassium 4.5 mmol/L (3.5-5.1); Sodium 135 mmol/L (137-145)
[2019-08-23] MEDS: LIDOCAINE 5% PATCH TOPICAL SCH (08:25)
[2019-08-23] MEDS: FUROSEMIDE 20 MG TAB PO SCH ×2 (08:26→14:33)
[2019-08-23] MEDS: APIXABAN 5 MG TAB PO SCH ×2 (08:26→20:10)
[2019-08-23] MEDS: SENNOSIDES-DOCUSATE SODIUM 1 EACH TAB PO SCH (08:26)
[2019-08-23] MEDS: SPIRONOLACTONE 25 MG TAB PO SCH (08:26)
[2019-08-23] MEDS: SOTALOL 80 MG TAB PO SCH ×2 (08:26→20:10)
[2019-08-23] MEDS: LISINOPRIL 2.5 MG TAB PO SCH (08:26)
[2019-08-23] MEDS: MAGNESIUM OXIDE 400 MG TAB PO SCH (08:26)
[2019-08-23] MEDS: traMADol 50 MG TAB PO SCH ×3 (08:27→22:25)
[2019-08-23] MEDS: TAMSULOSIN 0.4 MG CAP.ER.24H PO SCH ×2 (08:27→20:10)
[2019-08-23] MEDS: SODIUM CHLORIDE 0.9% 1,000 ML IV SCH (08:33)
--- NOTE | 2019-08-23 11:58 | P.PN ---
Subjective Progress Note Date: 08/23/19 Principal diagnosis: Afiv RVR / s/p BRIAN with cardioversion PROGRESS NOTE 08/22/19 84-year-old gentleman with history of persistent/chronic afib s/p prior ablation admitted with hypotension, dehydration, ARF and atrial fibrillation with RVR. Patient is s/p BRIAN with cardioversion and is maintaining sinus bradycardia. Most recent EF at 40-45%. Patient currently sitting in chair in no acute distress. Patient has no current complaints of chest pain, chest pressure, shortness of breath or palpitations. Lower extremity edema is improved but remains, legs are wrapped with tex wrap. Patient does remain bradycardic on telemetry, heart rate currently 56. Pt is on sotalol 80 mg twice daily and metoprolol tartrate 12.5 mg daily. VSS, 97% on RA. PROGRESS NOTE 08/23/19 Patient seen this day sitting at bedside in no acute distress. Patient continue sinus rhythm, heart rate much improved at 61. Patient has no current complaints of chest pain, chest pressure, shortness of breath or palpitations. Lower extremity edema continues, currently Tex wrapped and wounds bandaged. Clear from a cardiology standpoint for discharge or transfer to med surg unit. VSS, 98% on RA. PHYSICAL EXAMINATION: HEENT: Head is atraumatic, normocephalic. Pupils are equal, round. Sclerae anicteric. Conjunctivae are clear. Mucous membranes of the mouth are moist. Neck is supple. There is no jugular venous distention. No carotid bruit is heard. No thyromegaly. LUNGS: Clear to auscultation no wheezes, rales or rhonchi. No chest wall tenderness is noted on palpation or with deep breathing. HEART: Regular rate and rhythm without murmurs, rubs or gallops. S1 and S2 heard. ABDOMEN: Abdominal exam revealed normal bowel sounds. The abdomen was soft, non- tender, and without masses, organomegaly, or appreciable enlargement of the abd ominal aorta. EXTREMITIES: Examination of the extremities revealed easily palpable radial, femoral and pedal pulses. There was no cyanosis or clubbing. Moderate edema to BLE. No calf tenderness noted. VASCULAR: Radial and dorsalis pedis pulses palpated, no evidence of clubbing. NEUROLOGIC: Patient is awake, alert and oriented x3. There were no obvious focal neurologic abnormalities. LAB DATA: Sodium 135. BUN 33, CR 0.88. FINAL IMPRESSION: 1. A. fib RVR S/P cardioversion, continues SR controlled rate. 2. hypotension 3. EF 40-45%. 4. lower extremity edema, chronic 5. acute renal failure, improved PLAN: Clear from a cardiology standpoint for discharge. Continue same all other medical/medication regime. Heart healthy / low-salt diet. Repeat BMP/BNP/mag level in a.m. Objective - Vital Signs Vital signs: Vital Signs Temp 97.9 F 08/23/19 11:51 Pulse 74 08/23/19 11:51 Resp 18 08/23/19 11:51 BP 131/57 08/23/19 11:51 Pulse Ox 96 08/23/19 11:51 Intake & Output 08/22/19 08/23/19 08/23/19 18:59 06:59 18:59 Intake Total 240 360 Output Total 960 Balance 240 -960 360 Weight 113.5 kg Intake: Oral 240 360 Output: Urine 960 Other: Voiding Method Urinal # Voids 1 # Bowel Movements 1 - Labs CBC & Chem 7: 08/22/19 06:20 08/23/19 05:49 Labs: Abnormal Lab Results - Last 24 Hours (Table) 08/23/19 Range/Units 05:49 Sodium 135 L (137-145) mmol/L Carbon Dioxide 33 H (22-30) mmol/L BUN 33 H (9-20) mg/dL
--- NOTE | 2019-08-23 13:09 | P.PN ---
Subjective Progress Note Date: 08/23/19 Principal diagnosis: A. fib with RVR, A. fib cardiopathy, obstructive sleep apnea, lower extremity vascular ulcer and cellulitis, anasarca, chronic kidney disease, hypothyroidism, COPD and CHF. On this is an 84-year-old male patient of Dr. Mosqueda with past medical history of paroxysmal atrial fibrillation status post cardiac ablation in 2007 as well as cardioversions a couple times since then, hypertension, osteoarthritis, obstructive sleep apnea but not currently on a CPAP, psoriasis, hard of hearing. Patient's gives history that patient wasn't [facility] one month ago and was on a heparin drip and Lasix drip was treated for heart failure. He had a hematoma develop on the left hip without any fall and it was causing difficulty walking ended up going to rehab at [facility]. While he was at [facility] she states that his kidney function was affected. On Saturday he went home and starting on Saturday he was feeling bad. He saw cardiology in the office and he was started on digoxin which she read see one dose at home and then he was called on Saturday that his lab work was abnormal, blood pressure was on the lower side anyway and patient was told to come into the hospital. Patient has not been on any recent steroids. He denies any blood or tarry stools. He denies any chest pain, palpitations. He states he feels weak. He does have chronic lower extremity wounds. Patient came into [facility] emergency center for evaluation. He was afebrile, initial blood pressure 86/45, heart rate 67. EKG was atrial fibrillation with RVR at 158. Patient was started on Cardizem bolus and drip. CBC within normal limits, BUN 112, creatinine 1.69, sodium 134, potassium 3.3, chloride 94, CO2 31, blood sugar 115. Magnesium 2.9. Troponins negative on 3 draws. Triglycerides 81, cholesterol 165, LDL 104, HDL 45. Patient was admitted to the cardiac stepdown unit and cardiology consult requested. 08/16: Patient remains in A. fib with RVR with heart rate running [id number] up to 144 intermittently. He he is currently on heparin drip and Cardizem 30 mg 3 times daily oral. Cardiology has transitioned heparin to eliquis and resumed on Metoprolol XL increased dose to 50 mg daily, 1 dose of Lopressor 25 mg, started amiodarone 400 mg twice daily and Digoxin 250 g oral daily. Eliquis has been prescribed to the patient's pharmacy to check coverage Patient has been afebrile, blood pressure 105/55, pulse ox 95% on room air. WBC 7.3, hemoglobin 11.1, platelet count 181. Sodium 135, potassium 3.8, chloride 99, CO2 36, BUN 1261 and creatinine 0.94, blood sugar 114. Patient is complaining of pain pill tramadol not holding him and will increase to this to 4 times daily. 08/17: TSH 5.290 and patient started on levothyroxine 25 g daily. Patient has lower extremity edema and significant drainage from the right leg. Lasix will be increased to 40 mg oral twice daily and midodrine increased to 10 mg three times daily. Cardiology has increased frequency of Toprol-XL 50 mg twice daily and added spironolactone to start tomorrow. Patient is also followed by wound care. Wound culture to be obtained. He has been afebrile, heart rate 108, blood pressure 111/59, pulse ox 97% on room air. 08/18: Limited echocardiogram revealed EF between 30 and 35%. On consult with Dr. Lima performed yesterday for treatment of atrial fibrillation and consideration for permanent pacemaker implantation and subsequent AV node ablation. Medication changes were made yesterday by Dr. Lima. Patient's s pironolactone was increased to 25 mg daily, sotalol 80 mg twice daily added. Recommend BRIAN electrocardioversion and reassess LV function in sinus rhythm. Monitor renal function closely on sotalol and QT prolongation. After cardioversion, may decrease metoprolol depending on blood pressure. No plan at this point for device implantation. Patient has been afebrile, heart rate running between 104 117, blood pressure 111/60, pulse ox 93% on room air. Repeat blood work reveals a CBC 7.5, hemoglobin 10.4, sodium 133, potassium 4.1, chloride 99, CO2 29, BUN 44 and creatinine 0.92. Patient is scheduled for BRIAN and cardioversion tomorrow. Patient denies any chest pain or shortness of breath, no palpitations. His heart rate remains elevated and he is complaining of nausea today which is new. He has pain in the lower extremities which is been chronic and a uric acid will be checked. Eliquis is $48 per month and patient agrees to the cost. 08/19: Patient underwent successful cardioversion this morning into a sinus rhythm. BRIAN revealed moderate tricuspid regurgitation, moderate aortic regurgitation, left ventricular function moderately to severely impaired. Repeat echocardiogram has been ordered. The patient has been seen by Dr. Kilpatrick for lower extremity ulcers and cellulitis. Recommend cefazolin 2 g every 8 hours and dry Aquacel Ag dressing and compression. Heart rate is currently in the 60s to 70s, blood pressure 110/55, pulse ox 95% on room air. Patient denies any new complaints. No chest pain, shortness of breath, no lightheadedness or dizziness. 08/20: Patient is complaining of significant pain to his lower extremities especially on the left side. We will increase tramadol to 100 mg 3 times daily starting now. Patient is also complaining of nausea but due to QT prolongation, Tigan oral 300 mg scheduled 3 times daily will be added. Patient has been afebrile, heart rate 67, blood pressure 111/46, pulse ox 96% on room air. Heart rate has been as low as 40s and 50s, sinus rhythm. WBC 7.7, hemoglobin 10.2, platelet count 214. Sodium 136, potassium 4.4, chloride 101, CO2 32, BUN 40 and creatinine 1.0. Cardiology has placed metoprolol on hold due to bradycardia . Limited echocardiogram reveals EF of 40-45%. Patient may require pacemaker implantation. 08/21: Patient's heart rate was running low yesterday and metoprolol was held with improvement of his heart rate running in the 50s and 60s today. Dr. Lima has resumed Toprol-XL at much lower dose of 12.5 mg daily. Blood pressure 127/51, pulse ox 95% on room air, afebrile. We'll plan to increase Lasix to 60 mg oral twice daily. Wound culture was finalized with normal skin zohra. Dr. Kilpatrick is following for lower extremity wounds the patient is currently on Kefzol with plan for Keflex at time of discharge. The patient denies any new complaints. No chest pain or shortness of breath. Await further recommendations from cardiology. Anticipate possible discharge in the next 24 hours. 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 If he does well hopefully will be discharge on Saturday. 08/23: Patient is doing better, less drainage from the ulcers on his lower extremity, less edema and swelling and has been tolerating furosemide and Aldactone very well has been off Zaroxolyn 18 at this point. Patient continue to see infectious disease with right finalize antibiotic and pr epare for discharge tomorrow with home care and wound care as well. Objective - Vital Signs Vital signs: Vital Signs Temp 97.9 F 08/23/19 11:51 Pulse 74 08/23/19 11:57 Resp 18 08/23/19 11:51 BP 131/57 08/23/19 11:51 Pulse Ox 96 08/23/19 11:51 Intake & Output 08/22/19 08/23/19 08/23/19 18:59 06:59 18:59 Intake Total 240 360 Output Total 960 Balance 240 -960 360 Weight 113.5 kg Intake: Oral 240 360 Output: Urine 960 Other: Voiding Method Urinal # Voids 1 # Bowel Movements 1 - Exam Review of system: CONSTITUTIONAL: Elderly overweight no acute respiratory distress. EYES: No icterus sclerae, no conjunctivitis. EARS, NOSE, MOUTH, THROAT, and FACE: No sore throat, lymphadenopathy, carotid bruits or deformity. RESPIRATORY: Positive PND orthopnea cough. Positive wheezes CARDIOVASCULAR: Positive PND orthopnea palpitation or angina. GASTROINTESTINAL: No Abd pain, Nausea or vomiting, no Diarrhea or constipation, No GI Bleed, no distention or masses. GENITOURINARY: Negative for Hematuria or UTI, no kidney stones. INTEGUMENT/BREAST: Positive vascular Celexa the lower extremity with chronic ulcer in both legs worse in the left than the right side. HEMATOLOGIC/LYMPHATIC: Negative for bleed or purpura. MUSCULOSKELTAL: Negative for Myalgia or arthralgia. NEURLOGICAL: No LOC, Sz or syncope, blurred vision dizziness or abnormality.. BEHAVIORAL/PSYCH: Negative. ENDOCRINE: Negative. Physical examination: General Appearance: Alert, cooperative, no distress, mildly overweight elderly Neck HEENT: Supple, no lymphadenopathy, no thyroid enlargement, no carotid bruits. Lungs: Decreased expansion bilaterally with fine rhonchi positive mild crackles and rhonchi in the bases. Chest Wall: Decrease expansion with deep inspiration no tenderness and no deformity was found on exam, no costochondral pain or discomfort. Heart: Irregular rate and rhythm, S1, S2 positive S3 +5 cm JVD with systolic murmur. Back: Symmetric, no curvature, ROM normal, no CVA tenderness. Abdomen: Soft, non-tender, bowel sounds active all four quadrants, no masses, no organomegaly. Extremities: Significant edema more in the right than the left side, positive vascular cellulitis with 3 ulcerated area on the left leg around the ankle area H1 measure 1 time 1 inch in size right side had 1+ edema with slight vascular dermatitis of saliva so as well but slightly but better. Pulses: 2+ and symmetric. Skin: Skin color, texture, tugor normal, no rashes or lesions. Neurologic: Alert oriented x3 cranial nerves II through XII intact, no motor deficit, no abnormal balance or gait. - Labs CBC & Chem 7: 08/22/19 06:20 08/23/19 05:49 Labs: Abnormal Lab Results - Last 24 Hours (Table) 08/23/19 Range/Units 05:49 Sodium 135 L (137-145) mmol/L Carbon Dioxide 33 H (22-30) mmol/L BUN 33 H (9-20) mg/dL Assessment and Plan Plan: 1 A. fib with RVR: Patient is back into sinus rhythm, still on anticoagulation with Eliquis 5 mg twice a day along with sotalol 80 mg twice a day and metoprolol 12.5 mg daily. Patient is doing slightly but better. 2 cardiomyopathy: Secondary to arrhythmia with low ejection fraction was measured [facility] 6 weeks ago to be 25% only has improved so far since the A. fib is treated EF is up to 40 percentile medication. 3 atherosclerotic heart disease: Remain on treatment management tolerating his medication well. 4 CHF: Mostly diastolic dysfunction with systolic dysfunction congestive heart failure: Remain on Demadex as an outpatient but he is on furosemide in the hospital along with metoprolol, Aldactone and watching for any fluid overload. 5 hypotension: Remain using midodrine as needed. 6 anasarca: Much better with current diuretics continue to watch daily weight. 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 Final plan with infectious disease for tomorrow. 8 CKD: Not any worse at this point. 9 be benign prostatic hypertrophy with urinary retention: Remain on Flomax doing better. 10 obstructive sleep apnea: Using CPAP on regular basis. 11 hypothyroidism: Remain on levothyroxine 25 g daily. 12 wound care: Patient will continue to have topical wound care in the floor and when he leaves the hospital he will have VNA. CODE STATUS: DO NOT RESUSCITATE. Discharge expectation: Most likely home on Saturday.
[2019-08-23] MEDS: ACETAMINOPHEN TAB 325 MG TAB PO PRN (20:13)
--- NOTE | 2019-08-23 22:21 | PN ---
PROGRESS NOTE REASON FOR FOLLOWUP: Bilateral lower extremity cellulitis. INTERVAL HISTORY: The patient is currently afebrile, has been breathing comfortably. Denies having any chest pain. No cough. No nausea, vomiting. No abdominal pain. Pain to the leg after the dressing change yesterday. PHYSICAL EXAMINATION: Blood pressure 105/53 with a pulse of 73, temperature 97.5. He is 95% on room air. General description is an elderly male up in the chair in no distress. Respiratory system: Unlabored breathing. Clear to auscultation anteriorly. Heart S1, S2. Regular rate and rhythm. Abdomen soft. No tenderness. Legs currently wrapped up, some drainage on the dressing. LABS: BUN of 33, creatinine 0.88. DIAGNOSTIC IMPRESSION AND PLAN: Patient with bilateral lower extremities superficial ulcer from ruptured blister with secondary cellulitis. The patient is currently afebrile. Local wound culture has been negative. Otherwise, leg cellulitis has been adequately treated. Currently covered with finish a short course of oral Keflex. Local care to continue with dry Aquacel Silver dressing and Tex wrap and monitor his clinical course closely. MMODL / IJN: [id number] /
[2019-08-24] MEDS: MIDODRINE 5 MG TAB PO SCH ×3 (05:21→17:18)
[2019-08-24] MEDS: SUCRALFATE 1 GM TAB PO SCH ×3 (05:21→17:18)
[2019-08-24] MEDS: LEVOTHYROXINE 25 MCG TAB PO SCH (05:21)
[2019-08-24] MEDS: ACETAMINOPHEN TAB 325 MG TAB PO PRN ×2 (05:24→19:48)
[2019-08-24 07:27] LABS: Calcium 8.8 mg/dL (8.4-10.2); Magnesium 2.2 mg/dL (1.6-2.3); Potassium 4.2 mmol/L (3.5-5.1)
[2019-08-24] MEDS: SPIRONOLACTONE 25 MG TAB PO SCH (09:08)
[2019-08-24] MEDS: FUROSEMIDE 20 MG TAB PO SCH ×2 (09:08→17:18)
[2019-08-24] MEDS: traMADol 50 MG TAB PO SCH ×3 (09:08→23:46)
[2019-08-24] MEDS: APIXABAN 5 MG TAB PO SCH ×2 (09:09→19:44)
[2019-08-24] MEDS: LIDOCAINE 5% PATCH TOPICAL SCH (09:09)
[2019-08-24] MEDS: TAMSULOSIN 0.4 MG CAP.ER.24H PO SCH ×2 (09:09→19:44)
[2019-08-24] MEDS: MAGNESIUM OXIDE 400 MG TAB PO SCH (09:09)
[2019-08-24] MEDS: SOTALOL 80 MG TAB PO SCH ×2 (09:09→19:44)
[2019-08-24] MEDS: SENNOSIDES-DOCUSATE SODIUM 1 EACH TAB PO SCH (09:13)
--- NOTE | 2019-08-24 12:44 | PN ---
PROGRESS NOTE DATE OF SERVICE: 08/24/2019 REASON FOR FOLLOWUP: Bilateral lower extremity wound and cellulitis. INTERVAL HISTORY: The patient is currently afebrile, has been breathing comfortably. The patient did lean to the floor when he was held by the physical therapy to get him to walk around. No hard fall. The patient is thinking that his left leg gave out. No chest pain, shortness of breath or cough. No abdominal pain, no diarrhea. PHYSICAL EXAMINATION: Blood pressure 106/53 with a pulse of 64, temperature is 98.6. He is 100% on room air. General description is an elderly male, up in the chair in no distress.\ RESPIRATORY SYSTEM: Unlabored breathing, clear to auscultation anteriorly. HEART: S1, S2. Regular rate and rhythm. ABDOMEN: Soft, no tenderness. EXTREMITIES: Legs are currently wrapped, no obvious drainage on the dressing. LABS: Creatinine 0.95. No CBC was today. DIAGNOSTIC IMPRESSION AND PLAN: Patient with bilateral lower extremity superficial ulceration from ruptured blister with secondary cellulitis. The patient's local wound care to continue with the Aquacel Silver dressing and Tex wrap. [facility] with [facility]. Finish therapy with oral Keflex. Continue supportive care. MMODL / IJN: [id number] /
[2019-08-24] MEDS: LISINOPRIL 2.5 MG TAB PO SCH (13:00)
--- NOTE | 2019-08-24 15:13 | XR ---
EXAMINATION TYPE: XR Hip Complete LT DATE OF EXAM: 08/24/2019 COMPARISON: 10/10/2011 HISTORY: Pain TECHNIQUE: 2 views submitted FINDINGS: There is no evidence of erosive change or acute fracture. Postoperative change left hip. Chronic appe aring deformity of the superior pubic ramus. Mild diffuse osteopenia IMPRESSION: 1. No evidence of acute fracture or dislocation.
--- NOTE | 2019-08-24 15:14 | US ---
EXAMINATION TYPE: US retroperitoneal limited DATE OF EXAM: 08/24/2019 COMPARISON: NONE CLINICAL HISTORY: fall in hospital, right flank pain. No evidence of hematoma or seroma at area of bruising / pain in right flank. IMPRESSION: No definitive abnormality seen by ultrasound. Correlate with CT scan as clinically warra nted.
--- NOTE | 2019-08-24 15:26 | P.PN ---
Subjective Progress Note Date: 08/24/19 This is a pleasant 84-year-old gentleman with history of chronic atrial fibrillation, sleep apnea, chronic diastolic congestive heart failure, prior ablation and cardioversion, admitted to the hospital with congestive heart failure exacerbation and atrial fibrillation with rapid ventricular response. Patient continues to be in atrial fibrillation today his heart rate is in the 90s. His echo was performed, they were unable to determine the LV function because of rapid rate. We will have them repeat an echo today, limited study, to assess LV function now that the heart rate is much more stable. Blood pressure 110/60. White blood cell count 7.1, hemoglobin 11.1, platelet count 181. Sodium 135, potassium 3.8, BUN 61, creatinine 0.9. TSH level 5.2 free T4 1. 08/18/2019 Limited echocardiogram with Doppler study was performed which revealed an ejection fraction of 30-35%. Patient was also seen in consultation yesterday by Dr. Tello, there is consideration for possible pacer implantation and subsequent AV node ablation as an outpatient. The Cardizem and Lanoxin were also discontinued, patient is on beta ann as well as sotalol. Patient is scheduled to undergo a BRIAN and cardioversion tomorrow. The LV function will be reassessed once the patient is in normal sinus rhythm. I pressure today 110/60 with a heart rate in the 90s, 93% on room air. White blood cell count 7.5, hemoglobin 10.4, platelet count 184. Sodium 133, potassium 4.1, BUN 44, creatinine 0.9. 08/20/2019 Patient was seen and examined this morning, he underwent a BRIAN and cardioversion yesterday, remains in a normal sinus rhythm today but his heart rate is mainly in the 40s to 50s. He was sitting up in the chair at the time of my examination, overall complain of generally not feeling well today. Limited echocardiogram with Doppler study was performed which revealed an ejection fraction of 40-45%. Let pressure 120/70, heart rate in the 60s, 98% on room air. Blood cell count 7.7, hemoglobin 10.2, platelet count 214. Sodium 136, potassium 4.4, BUN 40, creatinine 1.0. 08/24/2019 Patient seen and examined this morning, he had a fall earlier today, went down for hip x-ray which did not reveal any evidence of any fracture. He also had an ultrasound performed of the retroperitoneum which did not reveal any definite abnormality. Hemodynamically stable, blood pressure 115/50 with a heart rate in the 60s, 96% on room air. Objective - Vital Signs Vital signs: Vital Signs Temp 98.2 F 08/24/19 12:30 Pulse 62 08/24/19 12:30 Resp 20 08/24/19 12:30 BP 115/55 08/24/19 12:30 Pulse Ox 96 08/24/19 12:30 Intake & Output 08/23/19 08/24/19 08/24/19 18:59 06:59 18:59 Intake Total 600 358 Output Total 100 555 Balance 500 -555 358 Weight 111.1 kg Intake: Oral 600 358 Output: Urine 100 555 Other: Voiding Method Urinal # Voids 1 # Bowel Movements 1 - Exam Gen: This is an 84-year-old male. He is sitting up in a chair and appears to be comfortable and in no acute distress. No respiratory distress is noted. Lesions is at bedside. HEENT: Head is atraumatic, normocephalic. Pupils equal, round. Sclerae is anicteric. NECK: Supple. No JVD. No lymphadenopathy. No thyromegaly. LUNGS: Clear to auscultation. No wheezes or rhonchi. No intercostal retractions. HEART: Irregularly irregular rate and rhythm. Systolic murmur. ABDOMEN: Soft. Bowel sounds are present. No masses. No tenderness. EXTREMITIES: Bilateral peripheral edema. No calf tenderness. Multiple lower extremity wounds. Please see nursing documentation and pictures for details. NEUROLOGICAL: Patient is awake, alert and oriented x3. Cranial nerves 2 through 12 are grossly intact. - Labs CBC & Chem 7: 08/22/19 06:20 08/24/19 06:22 Labs: Abnormal Lab Results - Last 24 Hours (Table) 08/24/19 Range/Units 06:22 Carbon Dioxide 33 H (22-30) mmol/L BUN 40 H (9-20) mg/dL Glucose 108 H (74-99) mg/dL Assessment and Plan Plan: Assessment and Plan: 1. Chronic persistent Atrial fibrillation 2. Obstructive sleep apnea. 3. Hypertension. 4. Benign prostatic hypertrophy. 5. Chronic lower extremity vascular ulcers. #6 acute on chronic renal failure #7 chronic congestive heart failure Plan From cardiology's perspective, patient may be able to be discharged home, we will follow him along with you now on an as-needed basis only, please don't hesitate to call with any questions. DNP note has been reviewed, I agree with a documented findings and plan of care. Patient was seen and examined.
--- NOTE | 2019-08-24 15:33 | XR ---
EXAMINATION TYPE: XR elbow complete LT DATE OF EXAM: 08/24/2019 COMPARISON: NONE HISTORY: 84-year-old male with fall and pain TECHNIQUE: 3 views FINDINGS: At least moderate degenerative change at the radiocapitellar joint with joint space narrowing and mar ginal spurring. There is some elevation of the anterior fat pad of the elbow. No posterior fat pad el evation. Mild to moderate change at the ulnotrochlear joint with marginal spurring. No acute fracture, subluxa tion, or dislocation seen. IMPRESSION: Osteoarthritic changes within the radiocapitellar and ulnotrochlear joints. Underlying anterior elbow joint effusion is nonspecific and may be reactive. No posterior fat pad elevation. No acute osseous abnormality seen.
[2019-08-24] MEDS: CEPHALEXIN 500 MG CAP PO SCH ×2 (17:18→19:44)
[2019-08-24] MEDS: SODIUM CHLORIDE 0.9% 1,000 ML IV SCH (20:05)
[2019-08-25] MEDS: MIDODRINE 5 MG TAB PO SCH ×3 (06:15→17:04)
[2019-08-25] MEDS: LEVOTHYROXINE 25 MCG TAB PO SCH (06:15)
[2019-08-25] MEDS: SUCRALFATE 1 GM TAB PO SCH ×3 (06:15→17:04)
[2019-08-25] MEDS: SPIRONOLACTONE 25 MG TAB PO SCH (09:39)
[2019-08-25] MEDS: traMADol 50 MG TAB PO SCH ×3 (09:39→23:00)
[2019-08-25] MEDS: SOTALOL 80 MG TAB PO SCH ×2 (09:39→19:54)
[2019-08-25] MEDS: APIXABAN 5 MG TAB PO SCH ×2 (09:40→19:51)
[2019-08-25] MEDS: FUROSEMIDE 20 MG TAB PO SCH ×2 (09:40→16:02)
[2019-08-25] MEDS: MAGNESIUM OXIDE 400 MG TAB PO SCH (09:40)
[2019-08-25] MEDS: TAMSULOSIN 0.4 MG CAP.ER.24H PO SCH ×2 (09:40→19:51)
[2019-08-25] MEDS: LISINOPRIL 2.5 MG TAB PO SCH (09:40)
[2019-08-25] MEDS: SENNOSIDES-DOCUSATE SODIUM 1 EACH TAB PO SCH (09:40)
[2019-08-25] MEDS: CEPHALEXIN 500 MG CAP PO SCH ×4 (09:40→19:51)
[2019-08-25] MEDS: LIDOCAINE 5% PATCH TOPICAL SCH (09:45)
--- NOTE | 2019-08-25 10:15 | P.DS ---
Providers Date of admission: 08/14/19 13:26 Expected date of discharge: 08/25/19 Attending physician: Brigitte Stephen Consults: 08/14/19 13:26 Consult Physician Urgent Consulting Provider: [facility] Consult Reason/Comments: A. fib with rapid ventricular response Do you want consulting provider notified?: Yes 08/18/19 14:10 Consult Physician Routine Consulting Provider: Lali Kilpatrick Consult Reason/Comments: R/O lower extremity cellulitus Do you want consulting provider notified?: Yes Primary care physician: Nehemiah Mosqueda [facility] Course: On this is an 84-year-old male patient of Dr. Mosqueda with past medical history of paroxysmal atrial fibrillation status post cardiac ablation in 2007 as well as cardioversions a couple times since then, hypertension, osteoarthritis, obstructive sleep apnea but not currently on a CPAP, psoriasis, hard of hearing. Patient's gives history that patient wasn't [facility] one month ago and was on a heparin drip and Lasix drip was treated for heart failure. He had a hematoma develop on the left hip without any fall and it was causing difficulty walking ended up going to rehab at [facility]. While he was at [facility] she states that his kidney function was affected. On Saturday he went home and starting on Saturday he was feeling bad. He saw cardiology in the office and he was started on digoxin which she read see one dose at home and then he was called on Saturday that his lab work was abnormal, blood pressure was on the lower side anyway and patient was told to come into the hospital. Patient has not been on any recent steroids. He denies any blood or tarry stools. He denies any chest pain, palpitations. He states he feels weak. He does have chronic lower extremity wounds. Patient came into [facility] emergency center for evaluation. He was afebrile, initial blood pressure 86/45, heart rate 67. EKG was atrial fibrillation with RVR at 158. Patient was started on Cardizem bolus and drip. CBC within normal limits, BUN 112, creatinine 1.69, sodium 134, potassium 3.3, chloride 94, CO2 31, blood sugar 115. Magnesium 2.9. Troponins negative on 3 draws. Triglycerides 81, cholesterol 165, LDL 104, HDL 45. Patient was admitted to the cardiac stepdown unit and cardiology consult requested. 08/16: Patient remains in A. fib with RVR with heart rate running [id number] up to 144 intermittently. He he is currently on heparin drip and Cardizem 30 mg 3 times daily oral. Cardiology has transitioned heparin to eliquis and resumed on Metoprolol XL increased dose to 50 mg daily, 1 dose of Lopressor 25 mg, started amiodarone 400 mg twice daily and Digoxin 250 g oral daily. Eliquis has been prescribed to the patient's pharmacy to check coverage Patient has been afebrile, blood pressure 105/55, pulse ox 95% on room air. WBC 7.3, hemoglobin 11.1, platelet count 181. Sodium 135, potassium 3.8, chloride 99, CO2 36, BUN 1261 and creatinine 0.94, blood sugar 114. Patient is complaining of pain pill tramadol not holding him and will increase to this to 4 times daily. 08/17: TSH 5.290 and patient started on levothyroxine 25 g daily. Patient has lower extremity edema and significant drainage from the right leg. Lasix will be increased to 40 mg oral twice daily and midodrine increased to 10 mg three times daily. Cardiology has increased frequency of Toprol-XL 50 mg twice daily and added spironolactone to start tomorrow. Patient is also followed by wound care. Wound culture to be obtained. He has been afebrile, heart rate 108, blood pressure 111/59, pulse ox 97% on room air. 08/18: Limited echocardiogram revealed EF between 30 and 35%. On consult with Dr. Lima performed yesterday for treatment of atrial fibrillation and consideration for permanent pacemaker implantation and subsequent AV node ablation. Medication changes were made yesterday by Dr. Lima. Patient's spironolactone was increased to 25 mg daily, sotalol 80 mg twice daily added. Recommend BRIAN electrocardioversion and reassess LV function in sinus rhythm. Monitor renal function closely on sotalol and QT prolongation. After cardiove rsion, may decrease metoprolol depending on blood pressure. No plan at this point for device implantation. Patient has been afebrile, heart rate running between 104 117, blood pressure 111/60, pulse ox 93% on room air. Repeat blood work reveals a CBC 7.5, hemoglobin 10.4, sodium 133, potassium 4.1, chloride 99, CO2 29, BUN 44 and creatinine 0.92. Patient is scheduled for BRIAN and cardioversion tomorrow. Patient denies any chest pain or shortness of breath, no palpitations. His heart rate remains elevated and he is complaining of nausea today which is new. He has pain in the lower extremities which is been chronic and a uric acid will be checked. [employer] is $48 per month and patient agrees to the cost. 08/19: Patient underwent successful cardioversion this morning into a sinus rhythm. BRIAN revealed moderate tricuspid regurgitation, moderate aortic regurgitation, left ventricular function moderately to severely impaired. Repeat echocardiogram has been ordered. The patient has been seen by Dr. Kilpatrick for lower extremity ulcers and cellulitis. Recommend cefazolin 2 g every 8 hours and dry Aquacel Ag dressing and compression. Heart rate is currently in the 60s to 70s, blood pressure 110/55, pulse ox 95% on room air. Patient denies any new complaints. No chest pain, shortness of breath, no lightheadedness or dizziness. 08/20: Patient is complaining of significant pain to his lower extremities especially on the left side. We will increase tramadol to 100 mg 3 times daily starting now. Patient is also complaining of nausea but due to QT prolongation, Tigan oral 300 mg scheduled 3 times daily will be added. Patient has been afebrile, heart rate 67, blood pressure 111/46, pulse ox 96% on room air. Heart rate has been as low as 40s and 50s, sinus rhythm. WBC 7.7, hemoglobin 10.2, platelet count 214. Sodium 136, potassium 4.4, chloride 101, CO2 32, BUN 40 and creatinine 1.0. Cardiology has placed metoprolol on hold due to bradycardia . Limited echocardiogram reveals EF of 40-45%. Patient may require pacemaker implantation. 08/21: Patient's heart rate was running low yesterday and metoprolol was held with improvement of his heart rate running in the 50s and 60s today. Dr. Lima has resumed Toprol-XL at much lower dose of 12.5 mg daily. Blood pressure 127/51, pulse ox 95% on room air, afebrile. We'll plan to increase Lasix to 60 mg oral twice daily. Wound culture was finalized with normal skin zohra. Dr. Kilpatrick is following for lower extremity wounds the patient is currently on Kefzol with plan for Keflex at time of discharge. The patient den ies any new complaints. No chest pain or shortness of breath. Await further recommendations from cardiology. Anticipate possible discharge in the next 24 hours. 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 If he does well hopefully will be discharge on Saturday. 08/23: Patient is doing better, less drainage from the ulcers on his lower extremity, less edema and swelling and has been tolerating furosemide and Aldactone very well has been off Zaroxolyn 18 at this point. Patient continue to see infectious disease with right finalize antibiotic and prepare for discharge tomorrow with home care and wound care as well. 2: Patient denies any new complaints. He does have some pain in his legs which has been chronic. He denies any shortness of breath. Dr. Kilpatrick is recommended Keflex for discharge. Cardiology has cleared him for discharge with recommendations to continue current medications. Patient was present. For discharge home and was working with physical therapy and his left leg gave out he is falling onto his left elbow and left hip. He also complained of right flank pain. There was no lightheadedness or dizziness involved. X-rays were ordered of the left hip and left elbow that did not show any acute fracture or dislocation. On the left elbow, there is underlying effusion is nonspecific may be reactive. Retroperitoneal ultrasound showed no definite abnormality. Patient is in his states that he will be returning home with home care and did not want to pursue subacute rehab. 08/25: Patient has been afebrile, heart rate 65, blood pressure 125/53, pulse ox 90% on room air. Patient's requested that patient stay overnight as she was concerned about taking him home and being safe. Today, patient is complaining of left leg is sore and weak which has been a chronic problem due to the chronic wound. Wound care will be addressed today prior to discharge. Today, patient is stating that he wants to go to rehab and has chosen [facility] [place]. Patient's states she still wants him to go home. Social work is obtaining insurance authorization. We will plan to prepare everything for discharge to rehab once arrangements are completed. Discharge diagnoses: 1. Atrial fibrillation with RVR. Status post BRIAN and electrical cardioversion. 2. Paroxysmal atrial fibrillation. 3. Obstructive sleep apnea. 4. Hypertension. 5. Benign prostatic hypertrophy. 6. 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 7. Hypothyroidism. 8. Acute on chronic systolic and diastolic heart failure 9. Chronic kidney disease stage II 10. Anemia of chronic disease Discharge plan: [facility] Impression and plan of care have been directed as dictated by the signing physician. Urmila Carey nurse practitioner acting as scribe for signing physician. Patient Condition at Discharge: Good Plan - Discharge Summary Discharge Rx Participant: No New Discharge Prescriptions: New Apixaban [Eliquis] 5 mg PO BID #60 tab Spironolactone [Aldactone] 25 mg PO DAILY #30 tab Sotalol [Betapace] 80 mg PO BID #60 tab Sucralfate [Carafate] 1 gm PO AC-TID #90 tab Magnesium Oxide [Mag-Ox] 400 mg PO DAILY tab Midodrine [ProAmatine] 10 mg PO AC-TID #90 tab Levothyroxine Sodium [Synthroid] 25 mcg PO DAILY@0630 #30 tab traMADol HCl [Ultram] 100 mg PO TID #18 tab Cephalexin [Keflex] 500 mg PO Q6HR 3 Days #12 cap Continue Tamsulosin HCl [Flomax] 0.4 mg PO BID Melatonin 6 mg PO HS Lisinopril [Zestril] 2.5 mg PO DAILY Lidocaine 5% Patch [Lidoderm 5% Patch] 1 patch TOPICAL DAILY Furosemide [Lasix] 40 mg PO DAILY@1400 Furosemide [Lasix] 80 mg PO QAM Aspirin EC [Ecotrin Low Dose] 81 mg PO DAILY Acetaminophen Tab [Tylenol] 1,000 mg PO Q8HR PRN PRN Reason: Pain Discontinued Midodrine HCl 5 mg PO BID traMADol HCL [Ultram] 50 mg PO Q6HR PRN PRN Reason: Pain Metoprolol Succinate (ER) [Toprol Xl] 25 mg PO DAILY@1700 Metolazone [Zaroxolyn] 2.5 mg PO DAILY Digoxin [Digitek] 250 mcg PO DAILY Digoxin [Digitek] 125 mcg PO DAILY Discharge Medication List Tamsulosin HCl [Flomax] 0.4 mg PO BID 07/12/14 [History] Acetaminophen Tab [Tylenol] 1,000 mg PO Q8HR PRN 08/14/19 [History] Aspirin EC [Ecotrin Low Dose] 81 mg PO DAILY 08/14/19 [History] Furosemide [Lasix] 40 mg PO DAILY@1400 08/14/19 [History] Furosemide [Lasix] 80 mg PO QAM 08/14/19 [History] Lidocaine 5% Patch [Lidoderm 5% Patch] 1 patch TOPICAL DAILY 08/14/19 [History] Lisinopril [Zestril] 2.5 mg PO DAILY 08/14/19 [History] Melatonin 6 mg PO HS 08/14/19 [History] Apixaban [Eliquis] 5 mg PO BID #60 tab 08/16/19 [Rx] Cephalexin [Keflex] 500 mg PO Q6HR 3 Days #12 cap 08/24/19 [Rx] Levothyroxine Sodium [Synthroid] 25 mcg PO DAILY@0630 #30 tab 08/24/19 [Rx] Magnesium Oxide [Mag-Ox] 400 mg PO DAILY tab 08/24/19 [Rx] Midodrine [ProAmatine] 10 mg PO AC-TID #90 tab 08/24/19 [Rx] Sotalol [Betapace] 80 mg PO BID #60 tab 08/24/19 [Rx] Spironolactone [Aldactone] 25 mg PO DAILY #30 tab 08/24/19 [Rx] Sucralfate [Carafate] 1 gm PO AC-TID #90 tab 08/24/19 [Rx] traMADol HCl [Ultram] 100 mg PO TID #18 tab 08/24/19 [Rx] Follow up Appointment(s)/Referral(s): Tiago Martinez MD [STAFF PHYSICIAN] - 09/01/19 1:45 pm (Saturday) Lali Kilpatrick MD [STAFF PHYSICIAN] - 09/02/19 9:30 am (Saturday [address] [phone]) [facility] Visiting Nurse, [NON-STAFF] - As Needed Nehemiah Mosqueda DO [Primary Care Provider] - 1 Week (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 Office will call with appointment time) Patient Instructions/Handouts: A-fib (Atrial Fibrillation) (DC), Safe Use of Anticoagulants (DC), Cardioversion (GEN) Activity/Diet/Wound Care/Special Instructions: Dressing changes on MWF. Please use aquacel silver and ERI wrap Eliquis covered - filled at [facility] - $48 copay/free 30 day coupon given to on 08/17/2019 Discharge Disposition: TRANSFER TO SNF/ECF
--- NOTE | 2019-08-25 11:34 | P.PN ---
Subjective Progress Note Date: 08/24/19 On this is an 84-year-old male patient of Dr. Mosqueda with past medical history of paroxysmal atrial fibrillation status post cardiac ablation in 2007 as well as cardioversions a couple times since then, hypertension, osteoarthritis, obstructive sleep apnea but not currently on a CPAP, psoriasis, hard of hearing. Patient's gives history that patient wasn't [facility] one month ago and was on a heparin drip and Lasix drip was treated for heart failure. He had a hematoma develop on the left hip without any fall and it was causing difficulty walking ended up going to rehab at [facility]. While he was at [facility] she states that his kidney function was affected. On Saturday he went home and starting on Saturday he was feeling bad. He saw cardiology in the office and he was started on digoxin which she read see one dose at home and then he was called on Saturday that his lab work was abnormal, blood pressure was on the lower side anyway and patient was told to come into the hospital. Patient has not been on any recent steroids. He denies any blood or tarry stools. He denies any chest pain, palpitations. He states he feels weak. He does have chronic lower extremity wounds. Patient came into [facility] emergency center for evaluation. He was afebrile, initial blood pressure 86/45, heart rate 67. EKG was atrial fibrillation with RVR at 158. Patient was started on Cardizem bolus and drip. CBC within normal limits, BUN 112, creatinine 1.69, sodium 134, potassium 3.3, chloride 94, CO2 31, blood sugar 115. Magnesium 2.9. Troponins negative on 3 draws. Triglycerides 81, cholesterol 165, LDL 104, HDL 45. Patient was ad mitted to the cardiac stepdown unit and cardiology consult requested. 08/16: Patient remains in A. fib with RVR with heart rate running [id number] up to 144 intermittently. He he is currently on heparin drip and Cardizem 30 mg 3 times daily oral. Cardiology has transitioned heparin to eliquis and resumed on Metoprolol XL increased dose to 50 mg daily, 1 dose of Lopressor 25 mg, started amiodarone 400 mg twice daily and Digoxin 250 g oral daily. Eliquis has been prescribed to the patient's pharmacy to check coverage Patient has been afebrile, blood pressure 105/55, pulse ox 95% on room air. WBC 7.3, hemoglobin 11.1, platelet count 181. Sodium 135, potassium 3.8, chloride 99, CO2 36, BUN 1261 and creatinine 0.94, blood sugar 114. Patient is complaining of pain pill tramadol not holding him and will increase to this to 4 times daily. 08/17: TSH 5.290 and patient started on levothyroxine 25 g daily. Patient has lower extremity edema and significant drainage from the right leg. Lasix will be increased to 40 mg oral twice daily and midodrine increased to 10 mg three times daily. Cardiology has increased frequency of Toprol-XL 50 mg twice daily and added spironolactone to start tomorrow. Patient is also followed by wound care. Wound culture to be obtained. He has been afebrile, heart rate 108, blood pressure 111/59, pulse ox 97% on room air. 08/18: Limited echocardiogram revealed EF between 30 and 35%. On consult with Dr. Lima performed yesterday for treatment of atrial fibrillation and consideration for permanent pacemaker implantation and subsequent AV node ablation. Medication changes were made yesterday by Dr. Lima. Patient's spironolactone was increased to 25 mg daily, sotalol 80 mg twice daily added. Recommend BRIAN electrocardioversion and reassess LV function in sinus rhythm. Monitor renal function closely on sotalol and QT prolongation. After cardioversion, may decrease metoprolol depending on blood pressure. No plan at this point for device implantation. Patient has been afebrile, heart rate running between 104 117, blood pressure 111/60, pulse ox 93% on room air. Repeat blood work reveals a CBC 7.5, hemoglobin 10.4, sodium 133, potassium 4.1, chloride 99, CO2 29, BUN 44 and creatinine 0.92. Patient is scheduled for BRIAN and cardioversion tomorrow. Patient denies any chest pain or shortness of breath, no palpitations. His heart rate remains elevated and he is complaining of nausea today which is new. He has pain in the lower extremities which is been chronic and a uric acid will be checked. [employer] is $48 per month and patient agrees to the cost. 08/19: Patient underwent successful cardioversion this morning into a sinus rhythm. BRIAN revealed moderate tricuspid regurgitation, moderate aortic regurgitation, left ventricular function moderately to severely impaired. Repeat echocardiogram has been ordered. The patient has been seen by Dr. Kilpatrick for lower extremity ulcers and cellulitis. Recommend cefazolin 2 g every 8 hours and dry Aquacel Ag dressing and compression. Heart rate is currently in the 60s to 70s, blood pressure 110/55, pulse ox 95% on room air. Patient denies any new complaints. No chest pain, shortness of breath, no lightheadedness or dizziness. 08/20: Patient is complaining of significant pain to his lower extremities especially on the left side. We will increase tramadol to 100 mg 3 times daily starting now. Patient is also complaining of nausea but due to QT prolongation, Tigan oral 300 mg scheduled 3 times daily will be added. Patient has been afebrile, heart rate 67, blood pressure 111/46, pulse ox 96% on room air. Heart rate has been as low as 40s and 50s, sinus rhythm. WBC 7.7, hemoglobin 10.2, platelet count 214. Sodium 136, potassium 4.4, chloride 101, CO2 32, BUN 40 and creatinine 1.0. Cardiology has placed metoprolol on hold due to bradycardia . Limited echocardiogram reveals EF of 40-45%. Patient may require pacemaker implantation. 08/21: Patient's heart rate was running low yesterday and metoprolol was held with improvement of his heart rate running in the 50s and 60s today. Dr. Lima has resumed Toprol-XL at much lower dose of 12.5 mg daily. Blood pressure 127/51, pulse ox 95% on room air, afebrile. We'll plan to increase Lasix to 60 mg oral twice daily. Wound culture was finalized with normal skin zohra. Dr. Kilpatrick is following for lower extremity wounds the patient is currently on Kefzol with plan for Keflex at time of discharge. The patient denies any new complaints. No chest pain or shortness of breath. Await further recommendations from cardiology. Anticipate possible discharge in the next 24 hours. 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 If he does well hopefully will be discharge on Saturday. 08/23: Patient is doing better, less drainage from the ulcers on his lower extremity, less edema and swelling and has been tolerating furosemide and Aldactone very well has been off Zaroxolyn 18 at this point. Patient continue to see infectious disease with right finalize antibiotic and prepare for discharge tomorrow with home care and wound care as well. 08/24: Patient denies any new complaints. He does have some pain in his legs which has been chronic. He denies any shortness of breath. Dr. Kilpatrick is r ecommended Keflex for discharge. Cardiology has cleared him for discharge with recommendations to continue current medications. Patient was present. For discharge home and was working with physical therapy and his left leg gave out he is falling onto his left elbow and left hip. He also complained of right flank pain. There was no lightheadedness or dizziness involved. X-rays were ordered of the left hip and left elbow that did not show any acute fracture or dislocation. On the left elbow, there is underlying effusion is nonspecific may be reactive. Retroperitoneal ultrasound showed no definite abnormality. Patient is in his states that he will be returning home with home care and did not want to pursue subacute rehab. Objective - Vital Signs Vital signs: Vital Signs Temp 98.0 F 08/25/19 03:25 Pulse 62 08/25/19 03:25 Resp 18 08/25/19 03:25 BP 125/54 08/25/19 03:25 Pulse Ox 97 08/25/19 03:25 Intake & Output 08/24/19 08/25/19 08/25/19 18:59 06:59 18:59 Intake Total 838 Output Total 500 Balance 838 -500 Weight 113 kg Intake: Oral 838 Output: Urine 500 Other: Voiding Method Urinal # Voids 1 5 # Bowel Movements 1 - Exam Gen: This is an 84-year-old male. He is sitting up in a chair and appears to be comfortable and in no acute distress. HEENT: Head is atraumatic, normocephalic. Pupils equal, round. Sclerae is anicteric. NECK: Supple. No JVD. No lymphadenopathy. No thyromegaly. LUNGS: Clear to auscultation. No wheezes or rhonchi. No intercostal retractions. HEART: Irregularly irregular rate and rhythm. Systolic murmur. ABDOMEN: Soft. Bowel sounds are present. No masses. No tenderness. EXTREMITIES: Bilateral lower extremity pedal edema. No calf tenderness. Multiple lower extremity wounds and serous weeping. NEUROLOGICAL: Patient is awake, alert and oriented x3. Cranial nerves 2 through 12 are grossly intact. - Labs CBC & Chem 7: 08/22/19 06:20 08/24/19 06:22 Assessment and Plan Plan: 1. Atrial fibrillation with RVR. Patient is now in a normal sinus rhythm Co ntinue eliquis 5 mg twice daily, Sotalol 80 mg twice daily, Toprol XL resumed at a much lower dose of 12.5 mg, continue aldactone 25 mg daily. Status post BRIAN and electrical cardioversion. 2. Paroxysmal atrial fibrillation. Continue as above. 3. Obstructive sleep apnea. Patient will need to use the CPAP. 4. Hypertension. Continue Cardizem, Lasix. Patient currently on midodrine twice daily 5. Benign prostatic hypertrophy. Monitor for urinary retention. Continue Flomax 0.4 mg twice daily. 6. 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 Consult with wound care today. Continue local wound care. Lasix 40 mg oral twice daily and midodrine 10 mg 3 times daily[address] Consult with Dr. Kilpatrick appreciated. Patient started on Kefzol. Wound culture in progress. Dr. Kilpatrick has recommended Keflex at the time of discharge. 7. GI prophylaxis. Pepcid 20 mg orally once every day. 8. DVT prophylaxis. Eliquis 9. Hypothyroidism. Start levothyroxine 25 mcg daily. Discharge plan: Home with [facility] Impression and plan of care have been directed as dictated by the signing physician. Urmila Carey nurse practitioner acting as scribe for signing physician.
[2019-08-25 13:51] VITALS: BMI 33.7
[2019-08-25] MEDS: ACETAMINOPHEN TAB 325 MG TAB PO PRN (19:52)
[2019-08-26] MEDS: ACETAMINOPHEN TAB 325 MG TAB PO PRN (03:24)
[2019-08-26] MEDS: LEVOTHYROXINE 25 MCG TAB PO SCH (06:14)
[2019-08-26] MEDS: traMADol 50 MG TAB PO SCH (09:43)
[2019-08-26] MEDS: TAMSULOSIN 0.4 MG CAP.ER.24H PO SCH (09:44)
[2019-08-26] MEDS: APIXABAN 5 MG TAB PO SCH (09:44)
[2019-08-26] MEDS: MAGNESIUM OXIDE 400 MG TAB PO SCH (09:44)
[2019-08-26] MEDS: CEPHALEXIN 500 MG CAP PO SCH (09:44)
[2019-08-26] MEDS: SUCRALFATE 1 GM TAB PO SCH (09:44)
[2019-08-26] MEDS: SENNOSIDES-DOCUSATE SODIUM 1 EACH TAB PO SCH (09:46)
[2019-08-26] MEDS: SOTALOL 80 MG TAB PO SCH (09:46)
[2019-08-26] MEDS: SPIRONOLACTONE 25 MG TAB PO SCH (09:46)
[2019-08-26] MEDS: LISINOPRIL 2.5 MG TAB PO SCH (10:13)
[2019-08-26] MEDS: FUROSEMIDE 20 MG TAB PO SCH (10:31)
[2019-08-26] MEDS: MIDODRINE 5 MG TAB PO SCH (10:32)
[2019-08-26] MEDS: LIDOCAINE 5% PATCH TOPICAL SCH (10:34)
[2019-08-26 10:42] VITALS: PULSE 72; RESP 16; TEMP 97.3
[2019-08-26 10:50] VITALS: BP 84/48
== END 2019-08-26 12:09 | DRG 308 ==
LOC: EC 10:48 → 3SCARD 13:26 → 5NMEDONC 08-26 03:23
PROVIDERS: ADMIT Internal Medicine; ATTEND Internal Medicine
PROC: 5A2204Z Restoration of Cardiac Rhythm, Single (ICD-10-PCS; principal; 2019-08-19 08:30)
PROC: B246ZZ4 Ultrasonography of Right and Left Heart, Transesophageal (ICD-10-PCS; principal; 2019-08-19 08:30)
DX: I48.19 Other persistent atrial fibrillation (principal); I50.43 Acute on chronic combined systolic (congestive) and diastolic (congestive) heart failure; L03.115 Cellulitis of right lower limb; N17.9 Acute kidney failure, unspecified; L03.116 Cellulitis of left lower limb; L97.822 Non-pressure chronic ulcer of other part of left lower leg with fat layer exposed; L97.812 Non-pressure chronic ulcer of other part of right lower leg with fat layer exposed; I87.332 Chronic venous hypertension (idiopathic) with ulcer and inflammation of left lower extremity; I87.333 Chronic venous hypertension (idiopathic) with ulcer and inflammation of bilateral lower extremity; I13.0 Hypertensive heart and chronic kidney disease with heart failure and stage 1 through stage 4 chronic kidney disease, or unspecified chronic kidney disease; I42.9 Cardiomyopathy, unspecified; D63.8 Anemia in other chronic diseases classified elsewhere; I95.9 Hypotension, unspecified; L97.522 Non-pressure chronic ulcer of other part of left foot with fat layer exposed; Z66 Do not resuscitate; I08.3 Combined rheumatic disorders of mitral, aortic and tricuspid valves; N18.2 Chronic kidney disease, stage 2 (mild); E86.0 Dehydration; G47.33 Obstructive sleep apnea (adult) (pediatric); N40.1 Benign prostatic hyperplasia with lower urinary tract symptoms; R35.0 Frequency of micturition; R33.8 Other retention of urine; E03.9 Hypothyroidism, unspecified; I25.10 Atherosclerotic heart disease of native coronary artery without angina pectoris; J44.9 Chronic obstructive pulmonary disease, unspecified; T50.2X5A Adverse effect of carbonic-anhydrase inhibitors, benzothiadiazides and other diuretics, initial encounter; R00.1 Bradycardia, unspecified; T44.7X5A Adverse effect of beta-adrenoreceptor antagonists, initial encounter; I48.92 Unspecified atrial flutter; R91.8 Other nonspecific abnormal finding of lung field; L40.9 Psoriasis, unspecified; M19.90 Unspecified osteoarthritis, unspecified site; H91.90 Unspecified hearing loss, unspecified ear; R26.2 Difficulty in walking, not elsewhere classified; M20.009 Unspecified deformity of unspecified finger(s); F17.200 Nicotine dependence, unspecified, uncomplicated; E66.9 Obesity, unspecified; Z68.33 Body mass index [BMI] 33.0-33.9, adult; Z79.82 Long term (current) use of aspirin; Z79.899 Other long term (current) drug therapy; Z87.442 Personal history of urinary calculi; Z96.653 Presence of artificial knee joint, bilateral; Z96.643 Presence of artificial hip joint, bilateral; Z98.890 Other specified postprocedural states; Z71.3 Dietary counseling and surveillance; W19.XXXA Unspecified fall, initial encounter; Z88.5 Allergy status to narcotic agent; Z88.0 Allergy status to penicillin; Z88.7 Allergy status to serum and vaccine; Z88.8 Allergy status to other drugs, medicaments and biological substances; Z80.1 Family history of malignant neoplasm of trachea, bronchus and lung; Z80.42 Family history of malignant neoplasm of prostate; Z80.51 Family history of malignant neoplasm of kidney; Z82.0 Family history of epilepsy and other diseases of the nervous system; Z82.49 Family history of ischemic heart disease and other diseases of the circulatory system; Z83.49 Family history of other endocrine, nutritional and metabolic diseases
CPT/HCPCS: 36415; 71046; 73502; 76775; 80048; 80053; 80061; 83735; 83880; 84439; 84443; 84484; 84550; 85025; 85027; 85610; 85730; 87070; 87205; 92960; 93005; 93306; 93308; 93312; 93320; 93325; 96365; 96366; 96376; 99291

== ENCOUNTER 2019-09-12 08:00 | Inpatient (IN) | payer MEDICARE ==
--- NOTE | 2019-09-12 08:55 | XR ---
EXAMINATION TYPE: XR knee complete LT, XR tibia fibula LT, XR foot complete LT, XR ankle complete LT DATE OF EXAM: 09/12/2019 CLINICAL HISTORY: Fall injury with pain. TECHNIQUE: Three views of the left foot, ankle, and knee are obtained. 2 views left leg. COMPARISON: None. FINDINGS: [place] osseous structures are demineralized. There is no acute fracture/dislocation eviden t in the left knee. Metallic hardware from knee arthroplasty is satisfactory in position. Increased d ensity suprapatellar bursa consistent with moderate to large joint effusion. Posterior vascular calci fication. Patellar spurring. No acute displaced fracture in the tibia or fibula. Old healed fracture deformity distal fibular diap hysis. Mild diffuse subcutaneous edema. Fixating screw distal metadiaphysis of the tibia and fibula with arthrodesis. Ankle mortise shows asy mmetric lateral narrowing. No acute displaced fracture. Small inferior calcaneal spur. Moderate spurr ing lateral malleolus. Tiny well-defined bony fragments from medial malleolus could reflect old avuls ion injury. Images of the left foot show demineralization. There is marked flexion or hammertoe type deformity an d toes making evaluation at this level suboptimal. Mild to moderate narrowing throughout the mid foot structures is seen. There is well-defined triangular fragment from the posterior superior navicular bone could reflect old injury. No acute displaced foot fracture is present. Overlying soft tissue is unremarkable. IMPRESSION: There is no acute fracture or dislocation in left knee, leg, ankle, or foot.
--- NOTE | 2019-09-12 09:05 | ED ---
Fall HPI - General Chief Complaint: Fall Stated Complaint: Leg Pain Time Seen by Provider: 09/12/19 09:04 Source: patient Mode of arrival: ambulatory - History of Present Illness Initial Comments: The patient is an 84-year-old male with past history of A. fib on Elquis, congestive heart failure and left hip hematoma who presents emergency room and after he sustained a fall in the shower yesterday. The patient recently had a hematoma after hospitalization at [facility]. He was on heparin and developed a hematoma in his left thigh. States that since this happened he has been ambulating with a walker. He also developed some weakness in his left leg. Yesterday he was in the shower when he sustained a mechanical fall. States he had a twisting injury of his left knee and has been unable to bear weight on it. He take some Tylenol at home this morning for his pain however pain has not improved. Because he has been unable to weight-bear he decided to call EMS to bring him into the department for evaluation. He denies any numbness or tingling extremity. Does have pain around the knee, tibia and second toe on the left. Patient has had previous knee replacement on the left by Dr. Isaacs and hip replacement by Dr. Dodge. He denies any fevers or chills. Does admit to swelling in the left knee. No calf pain. There are no alleviating, precipitati ng or modifying factors - Related Data Home Medications Medication Instructions Recorded Confirmed Tamsulosin HCl [Flomax] 0.4 mg PO BID@0700,1900 07/12/14 09/12/19 Acetaminophen Tab [Tylenol] 1,000 mg PO Q8H PRN 08/14/19 09/12/19 Aspirin EC [Ecotrin Low Dose] 81 mg PO HS@1900 08/14/19 09/12/19 Furosemide [Lasix] 40 mg PO DAILY@1400 08/14/19 09/12/19 Furosemide [Lasix] 80 mg PO DAILY@0708/14/19 09/12/19 Lisinopril [Zestril] 2.5 mg PO DAILY@0700 08/14/19 09/12/19 Melatonin 6 mg PO HS@2100 08/14/19 09/12/19 Apixaban [Eliquis] 5 mg PO BID@0700,1900 09/12/19 09/12/19 Docusate [Colace] 100 mg PO BID PRN 09/12/19 09/12/19 Lansoprazole [Prevacid] 15 mg PO DAILY@0700 09/12/19 09/12/19 Levothyroxine Sodium [Synthroid] 25 mcg PO DAILY@0500 09/12/19 09/12/19 Metoprolol Tartrate [Lopressor] 25 mg PO BID@0700,1900 09/12/19 09/12/19 Midodrine [ProAmatine] 10 mg PO TID@0700,1100,1600 09/12/19 09/12/19 Spironolactone [Aldactone] 25 mg PO DAILY@0700 09/12/19 09/12/19 Allergies Allergy/AdvReac Type Severity Reaction Status Date / Time isosorbide mononitrate Allergy Unknown Verified 09/12/19 15:00 [From Imdur] Penicillins Allergy Rash/Hives Verified 09/12/19 15:00 albuterol [From Ventolin HFA] AdvReac Rapid Verified 09/12/19 15:00 Heart Rate amiodarone HCl AdvReac LUNGS/EYE Verified 09/12/19 15:00 [From Cordarone] PROBLEMS codeine AdvReac Nausea & Verified 09/12/19 15:00 Vomiting enalapril maleate AdvReac Cough Verified 09/12/19 15:00 [From Vasotec] enalaprilat dihydrate AdvReac Cough Verified 09/12/19 15:00 [From Vasotec] hydromorphone HCl AdvReac Nausea & Verified 09/12/19 15:00 [From Dilaudid] Vomiting loratadine [From Claritin] AdvReac Rapid Verified 09/12/19 15:00 Heart Rate morphine AdvReac Nausea & Verified 09/12/19 15:00 Vomiting procainamide HCl AdvReac "FLUID ON Verified 09/12/19 15:00 [From Pronestyl] HEART" tetanus toxoid, adsorbed AdvReac "JOINT Verified 09/12/19 15:00 STIFFNESS" Review of Systems ROS Statement: Those systems with pertinent positive or pertinent negative responses have been documented in the HPI. ROS Other: All systems not noted in ROS Statement are negative. Past Medical History Past Medical History: Atrial Fibrillation, Heart Failure Additional Past Medical History / Comment(s): Pt recently had an influenza and was on an antibiotic, recently told he has a "spot" on his R lung-not worked up yet, Afib with RVR in past, no CPAP necessary, kidney stones, psoriasis, reactive airway, urinary frequency. 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 Father Family Medical History: Cancer Additional Family Medical History / Comment(s): Father at age 80 of prostrate cancer. Brother(s) Family Medical History: Cancer Additional Family Medical History / Comment(s): Patient has a total of 6 brothers. One brother with history of atrial fibrillation and kidney cancer, second brother with valvular heart disease, third brother with Parkinson's. Daughter(s) Additional Family Medical History / Comment(s): Patient has 3 children and one daughter from complications from obesity. Other 2 children have no major medical problems. General Exam Limitations: no limitations General appearance: alert, in no apparent distress Head exam: Present: atraumatic, normocephalic, normal inspection ENT exam: Present: normal exam, mucous membranes moist Neck exam: Present: normal inspection. Absent: tenderness, meningismus, lymphadenopathy Respiratory exam: Present: normal lung sounds bilaterally. Absent: respiratory distress, wheezes, rales, rhonchi, stridor Cardiovascular Exam: Present: tachycardia, irregular rhythm GI/Abdominal exam: Present: soft, normal bowel sounds. Absent: distended, tenderness, guarding, rebound, rigid Extremities exam: Present: other (chronic bilateral lower extremity calf wounds which are wrapped in kerlix. Patient has some suprapatellar swelling on the left. No ecchymosis. No appreciable joint effusion. Compartments are soft in the left lower extremity. He has pain to palpation of his knee joint and tib/fib on the left. 2+ DP and PT pulses. Cap refill <3 seconds. Some overlying redness and dry, brawny skin on the b/l le. Intact sensation. 5/5 muscle strength in hip flexors, ankle and great toe doriflexors and foot plantarflexors. Knee extensor on the left is intact but painful. ) Back exam: Present: normal inspection Course Vital Signs 09/12/19 09/12/19 09/12/19 08:03 09:15 10:21 Temperature 98.2 F Pulse Rate 66 109 H 102 H Pulse Rate [ Coronary Clinical Specialist ] Respiratory 18 18 18 Rate Blood Pressure 107/66 95/49 100/48 Blood Pressure [Left Arm] O2 Sat by Pulse 100 97 98 Oximetry 09/12/19 09/12/19 09/12/19 11:25 12:05 12:47 Temperature Pulse Rate 116 H 110 H Pulse Rate [ 130 H Coronary Clinical Specialist ] Respiratory 18 18 Rate Blood Pressure 85/52 99/48 Blood Pressure [Left Arm] O2 Sat by Pulse 94 L 100 Oximetry 09/12/19 09/12/19 09/12/19 13:05 14:02 15:03 Temperature Pulse Rate 112 H 125 H 138 H Pulse Rate [ Coronary Clinical Specialist ] Respiratory 18 18 18 Rate Blood Pressure 110/80 96/60 98/51 Blood Pressure [Left Arm] O2 Sat by Pulse 98 100 96 Oximetry 09/12/19 09/12/19 09/12/19 15:05 15:15 15:45 Temperature 98.4 F Pulse Rate 120 H 126 H Pulse Rate [ 125 H Coronary Clinical Specialist ] Respiratory 16 18 Rate Blood Pressure 97/47 Blood Pressure 111/55 [Left Arm] O2 Sat by Pulse 99 Oximetry Medical Decision Making - Medical Decision Making Upon arrival the patient was placed in room 17. A thorough history and physical exam is performed. The patient was given a Powell for pain control. He is also given Midodrine as it is his scheduled time take his medications. The patient was taken for an x-ray of his left knee, left tib-fib, left ankle and foot all of which are negative for fracture. Because the patient is still unable to ambulate I did recommend CT of the extremity which continues to demonstrate no acute fractures. The patient does not feel as if he can go home because he is unable to bear weight. I discussed the case with Dr. Whitney who refused admission for the patient. He did recommend orthopedic admission. I did call discuss the case with Dr. Mahesh bruce who also refused admission stating orthopedics would not have any acute intervention with the patient. Because of this we did page the medicine service. Dr. Sal does answer and the case is discussed with her. She does agree to admit the patient at this time. She is requesting laboratory studies, orthopedic and cardiology evaluation and PT/OT. The patient will have his blood pressure medications held at this time. Consult to cardiology to reevaluate the patient's blood pressure medications as he is tachycardic and mildly hypotensive dependent on Midodrin in the ER. The patient did agree to this treatment plan. He was transferred to the floor in stable condition - Lab Data Result diagrams: 09/19/19 05:50 09/19/19 05:50 Lab Results 09/12/19 09/12/19 09/12/19 Range/Units 13:04 13:04 13:04 WBC 9.4 (3.8-10.6) k/uL RBC 3.21 L (4.30-5.90) m/uL Hgb 10.8 L (13.0-17.5) gm/dL Hct 33.1 L (39.0-53.0) % MCV 103.3 H (80.0-100.0) fL MCH 33.6 (25.0-35.0) pg MCHC 32.5 (31.0-37.0) g/dL RDW 14.0 (11.5-15.5) % Plt Count 191 (150-450) k/uL Neutrophils % 71 % Lymphocytes % 20 % Monocytes % 5 % Eosinophils % 2 % Basophils % 1 % Neutrophils # 6.7 (1.3-7.7) k/uL Lymphocytes # 1.8 (1.0-4.8) k/uL Monocytes # 0.5 (0-1.0) k/uL Eosinophils # 0.2 (0-0.7) k/uL Basophils # 0.0 (0-0.2) k/uL Macrocytosis Slight PT 12.5 H (9.0-12.0) sec INR 1.2 H (<1.2) APTT 28.3 (22.0-30.0) sec Sodium 135 L (137-145) mmol/L Potassium 4.3 (3.5-5.1) mmol/L Chloride 103 (98-107) mmol/L Carbon Dioxide 25 (22-30) mmol/L Anion Gap 7 mmol/L BUN 44 H (9-20) mg/dL Creatinine 1.26 H (0.66-1.25) mg/dL Est GFR (CKD-EPI)AfAm 61 (>60 ml/min/1.73 sqM) Est GFR (CKD-EPI)NonAf 53 (>60 ml/min/1.73 sqM) Glucose 101 H (74-99) mg/dL Calcium 8.6 (8.4-10.2) mg/dL Total Bilirubin 0.6 (0.2-1.3) mg/dL AST 33 (17-59) U/L ALT 28 (4-49) U/L Alkaline Phosphatase 48 (38-126) U/L Creatine Kinase 176 H (55-170) U/L C-Reactive Protein 48.5 H (<10.0) mg/L NT-Pro-B Natriuret Pep pg/mL Total Protein 5.8 L (6.3-8.2) g/dL Albumin 3.2 L (3.5-5.0) g/dL Cortisol 8 ug/dL 09/12/19 Range/Units 13:04 WBC (3.8-10.6) k/uL RBC (4.30-5.90) m/uL Hgb (13.0-17.5) gm/dL Hct (39.0-53.0) % MCV (80.0-100.0) fL MCH (25.0-35.0) pg MCHC (31.0-37.0) g/dL RDW (11.5-15.5) % Plt Count (150-450) k/uL Neutrophils % % Lymphocytes % % Monocytes % % Eosinophils % % Basophils % % Neutrophils # (1.3-7.7) k/uL Lymphocytes # (1.0-4.8) k/uL Monocytes # (0-1.0) k/uL Eosinophils # (0-0.7) k/uL Basophils # (0-0.2) k/uL Macrocytosis PT (9.0-12.0) sec INR (<1.2) APTT (22.0-30.0) sec Sodium (137-145) mmol/L Potassium (3.5-5.1) mmol/L Chloride (98-107) mmol/L Carbon Dioxide (22-30) mmol/L Anion Gap mmol/L BUN (9-20) mg/dL Creatinine (0.66-1.25) mg/dL Est GFR (CKD-EPI)AfAm (>60 ml/min/1.73 sqM) Est GFR (CKD-EPI)NonAf (>60 ml/min/1.73 sqM) Glucose (74-99) mg/dL Calcium (8.4-10.2) mg/dL Total Bilirubin (0.2-1.3) mg/dL AST (17-59) U/L ALT (4-49) U/L Alkaline Phosphatase (38-126) U/L Creatine Kinase (55-170) U/L C-Reactive Protein (<10.0) mg/L NT-Pro-B Natriuret Pep 1920 pg/mL Total Protein (6.3-8.2) g/dL Albumin (3.5-5.0) g/dL Cortisol ug/dL - EKG Data EKG Comments: EKG demonstrates atrial fibrillation with a rate of 133. QRS 116. QTC of 535. No acute ST segment elevations or depressions concerning for ischemic changes Disposition Clinical Impression: Fall, Left knee pain, Hypotension, Afib Disposition: ADMITTED IP TO THIS HOSP Condition: Stable Is patient prescribed a controlled substance at d/c from ED?: No Decision to Admit Reason: Admit from EC Decision Date: 09/12/19 Decision Time: 12:48
[2019-09-12] MEDS ORDERED: HYDROcodone/APAP 7.5-325MG 1 EACH TAB PO ONE (09:15)
--- NOTE | 2019-09-12 10:52 | CT ---
EXAMINATION TYPE: CT lower extremity LT wo con DATE OF EXAM: 09/12/2019 COMPARISON: Same day x-rays. HISTORY: Inability to bear weight. Twisting injury to knee with pain. CT DLP: 489.2 mGycm Automated exposure control for dose reduction was used. FINDINGS: Corresponding to x-rays with metallic hardware from total left knee arthroplasty is present. There is additional prior fixating screw distal metadiaphysis of the tibia and fibula with desired arthrodesi s. No acute fracture or dislocation in the tibia or fibula. Old healed fracture deformity distal fibu lar diaphysis redemonstrated. Left ankle joint shows mortise symmetry narrowing with mild/moderate na rrowing and spurring throughout the hindfoot and midfoot structures. Marked varus positioning distal coexisting without fracture. Significant narrowing with spurring and subchondral cystic change first metatarsophalangeal joint IMPRESSION: No acute fracture or dislocation in the left lower extremity from the knee to the toes. F indings correlate with same day x-ray.
[2019-09-12] MEDS ORDERED: MIDODRINE 5 MG TAB PO STA (11:17)
[2019-09-12] MEDS ORDERED: NALOXONE 0.4 MG/ML 1 ML VIAL IV PRN (13:06)
[2019-09-12 13:23] LABS: Basophils % (A) 1 %; Eosinophils # (A) 0.2 k/uL (0-0.7); Eosinophils % (A) 2 %; HCT 33.1 % (39.0-53.0); HGB 10.8 gm/dL (13.0-17.5); Lymphocytes # (A) 1.8 k/uL (1.0-4.8); Lymphocytes % (A) 20 %; MCH 33.6 pg (25.0-35.0); MCHC 32.5 g/dL (31.0-37.0); MCV 103.3 fL (80.0-100.0); Macrocytosis Slight; Monocytes # (A) 0.5 k/uL (0-1.0); Monocytes % (A) 5 %; Neutrophils # (A) 6.7 k/uL (1.3-7.7); Neutrophils % (A) 71 %; Platelet Count 191 k/uL (150-450); RBC 3.21 m/uL (4.30-5.90); WBC 9.4 k/uL (3.8-10.6)
[2019-09-12 13:31] LABS: INR 1.2 (<1.2); Partial Thromboplastin Time 28.3 sec (22.0-30.0); Prothrombin Time 12.5 sec (9.0-12.0)
[2019-09-12 13:33] LABS: Albumin 3.2 g/dL (3.5-5.0); C Reactive Protein 48.5 mg/L (<10.0); Calcium 8.6 mg/dL (8.4-10.2); Potassium 4.3 mmol/L (3.5-5.1); Total Bilirubin 0.6 mg/dL (0.2-1.3); Total Protein 5.8 g/dL (6.3-8.2)
[2019-09-12] MEDS ORDERED: METOPROLOL TARTRATE 5 MG/5 ML VIAL IVP STA (13:45)
[2019-09-12] MEDS: SODIUM CHLORIDE 0.9% 1,000 ML IV SCH (14:34)
--- NOTE | 2019-09-12 14:56 | P.CRDCN ---
History of Present Illness History of present illness: HISTORY OF PRESENTING ILLNESS This is a pleasant 84-year-old male past medical history significant for chronic persistent atrial fibrillation on long-term anticoagulation status post cardioversion was successful for only one week, systolic heart failure and hypotension. He follows in the office with Dr. Martinez. We have been asked to see in consultation for hypotension. He presented to the emergency department after having a fall in the shower. He was just discharged from [facility] and they were attempting to get him in the shower for the first time since coming home. He was trying to lift his leg and it got caught on the shower ledge causing him to fall. On arrival he was found to be in atrial fibrillation with rapid ventricular response. Heart rate is fluctuating between 130 and 140 on the monitor. He denies symptoms of palpitations, dizziness, shortness of breath or chest pain. On 08/19/2019 he underwent a BRIAN cardioversion that was initially successful however the states it only lasted for about one week. Currently he a non-Aldactone 25 mg daily, aspirin 81 mg daily, Eliquis 5 mg twice a day, Lasix 80 mg in the morning and 40 mg in the afternoon, lisinopril 2.5 mg daily, Lopressor 25 mg twice a day and midodrine 10 mg 3 times a day. Most recent echocardiogram obtained in August 2019 revealed impaired LV systolic function with ejection fraction 40-45%. REVIEW OF SYSTEMS At the time of my exam: CONSTITUTIONAL: Denies fever or chills. CARDIOVASCULAR: Denies chest pain, shortness of breath, orthopnea, PND or palpitations. RESPIRATORY: Denies cough. GASTROINTESTINAL: Denies abdominal pain, diarrhea, constipation, nausea or vomiting. MUSCULOSKELETAL: Denies myalgias. NEUROLOGIC: Denies numbness, tingling or weakness. ENDOCRINE: Denies fatigue, weight change, polydipsia or polyurina. GENITOURINARY: Denies burning, hematuria or urgency with micturation. HEMATOLOGIC: Denies history of anemia or bleeding. PHYSICAL EXAMINATION Blood pressure 80/60 heart rate 144 afebrile and maintaining oxygen saturation on and room air. CONSTITUTIONAL: No apparent distress. HEENT: Head is normocephalic. Pupils are equal, round. Sclerae anicteric. Mucous membranes of the mouth are moist. No JVD. No carotid bruit. CHEST EXAMINATION: Lungs are clear to auscultation. No chest wall tenderness is noted on palpation or with deep breathing. HEART EXAMINATION: Irregular rate and rhythm. S1, S2 heard. Systolic ejection murmur at the left sternal border, no gallops or rub. ABDOMEN: Soft, nontender. Positive bowel sounds. EXTREMITIES: 2+ peripheral pulses, trace lower extremity edema with ERI wraps in place and no calf tenderness. NEUROLOGIC EXAMINATION: Patient is awake, alert and oriented x3. ASSESSMENT Atrial fibrillation with rapid ventricular response, chronic persistent refractory to cardioversion Chronic systolic heart failure, ejection fraction 40-45%. Clinically euvolemic. History of hypotension maintained on midodrine Valvular heart disease PLAN Resume lopressor 25 mg PO BID, first dose now. Also continue eliquis. Disco ntinue aspirin. Hold lisinopril, aldactone and lasix given his hypotension. Continue telemetry monitoring. Further recommendations to follow based on clinical course. Thank you kindly for this consultation. Nurse Practitioner note has been reviewed, I agree with a documented findings and plan of care. Patient was seen and examined. Past Medical History Past Medical History: Atrial Fibrillation, Heart Failure Additional Past Medical History / Comment(s): Pt recently had an influenza and was on an antibiotic, recently told he has a "spot" on his R lung-not worked up yet, Afib with RVR in past, no CPAP necessary, kidney stones, psoriasis, reactive airway, urinary frequency. 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 Father Family Medical History: Cancer Additional Family Medical History / Comment(s): Father at age 80 of prostrate cancer. Brother(s) Family Medical History: Cancer Additional Family Medical History / Comment(s): Patient has a total of 6 brothers. One brother with history of atrial fibrillation and kidney cancer, second brother with valvular heart disease, third brother with Parkinson's. Daughter(s) Additional Family Medical History / Comment(s): Patient has 3 children and one daughter from complications from obesity. Other 2 children have no major medical problems. Medications and Allergies Home Medications Medication Instructions Recorded Confirmed Type Tamsulosin HCl [Flomax] 0.4 mg PO BID 07/12/14 08/14/19 History Acetaminophen Tab [Tylenol] 1,000 mg PO Q8HR PRN 08/14/19 08/14/19 History Aspirin EC [Ecotrin Low Dose] 81 mg PO DAILY 08/14/19 08/14/19 History Furosemide [Lasix] 40 mg PO DAILY@1400 08/14/19 08/14/19 History Furosemide [Lasix] 80 mg PO QAM 08/14/19 08/14/19 History Lidocaine 5% Patch [Lidoderm 5% 1 patch TOPICAL DAILY 08/14/19 08/14/19 History Patch] Lisinopril [Zestril] 2.5 mg PO DAILY 08/14/19 08/14/19 History Melatonin 6 mg PO HS 08/14/19 08/14/19 History Apixaban [Eliquis] 5 mg PO BID #60 tab 08/16/19 Rx Cephalexin [Keflex] 500 mg PO Q6HR 3 Days #12 cap 08/24/19 Rx Levothyroxine Sodium [Synthroid] 25 mcg PO DAILY@0630 #30 tab 08/24/19 Rx Magnesium Oxide [Mag-Ox] 400 mg PO DAILY tab 08/24/19 Rx Midodrine [ProAmatine] 10 mg PO AC-TID #90 tab 08/24/19 Rx Sotalol [Betapace] 80 mg PO BID #60 tab 08/24/19 Rx Spironolactone [Aldactone] 25 mg PO DAILY #30 tab 08/24/19 Rx Sucralfate [Carafate] 1 gm PO AC-TID #90 tab 08/24/19 Rx traMADol HCl [Ultram] 100 mg PO TID #18 tab 08/24/19 Rx Allergies Allergy/AdvReac Type Severity Reaction Status Date / Time isosorbide mononitrate Allergy Unknown Verified 09/12/19 08:10 [From Imdur] Penicillins Allergy Rash/Hives Verified 09/12/19 08:10 albuterol [From Ventolin HFA] AdvReac Rapid Verified 09/12/19 08:10 Heart Rate amiodarone HCl AdvReac LUNGS/EYE Verified 09/12/19 08:10 [From Cordarone] PROBLEMS codeine AdvReac Nausea & Verified 09/12/19 08:10 Vomiting enalapril maleate AdvReac Cough Verified 09/12/19 08:10 [From Vasotec] enalaprilat dihydrate AdvReac Cough Verified 09/12/19 08:10 [From Vasotec] hydromorphone HCl AdvReac Nausea & Verified 09/12/19 08:10 [From Dilaudid] Vomiting loratadine [From Claritin] AdvReac Rapid Verified 09/12/19 08:10 Heart Rate morphine AdvReac Nausea & Verified 09/12/19 08:10 Vomiting procainamide HCl AdvReac "FLUID ON Verified 09/12/19 08:10 [From Pronestyl] HEART" tetanus toxoid, adsorbed AdvReac "JOINT Verified 09/12/19 08:10 STIFFNESS" Physical Exam Vitals: Vital Signs Temp Pulse Resp BP Pulse Ox 09/12/19 14:02 125 H 18 96/60 100 09/12/19 13:05 112 H 18 110/80 98 09/12/19 12:05 110 H 18 99/48 100 09/12/19 11:25 116 H 18 85/52 94 L 09/12/19 10:21 102 H 18 100/48 98 09/12/19 09:15 109 H 18 95/49 97 09/12/19 08:03 98.2 F 66 18 107/66 100 Intake and Output 09/11/19 09/12/19 09/12/19 22:59 06:59 14:59 Other: Weight 107.955 kg Results 09/12/19 13:04 09/12/19 13:04 Cardiac Enzymes 09/12/19 Range/Units 13:04 AST 33 (17-59) U/L Coagulation 09/12/19 Range/Units 13:04 PT 12.5 H (9.0-12.0) sec APTT 28.3 (22.0-30.0) sec CBC 09/12/19 Range/Units 13:04 WBC 9.4 (3.8-10.6) k/uL RBC 3.21 L (4.30-5.90) m/uL Hgb 10.8 L (13.0-17.5) gm/dL Hct 33.1 L (39.0-53.0) % Plt Count 191 (150-450) k/uL Comprehensive Metabolic Panel 09/12/19 Range/Units 13:04 Sodium 135 L (137-145) mmol/L Potassium 4.3 (3.5-5.1) mmol/L Chloride 103 (98-107) mmol/L Carbon Dioxide 25 (22-30) mmol/L BUN 44 H (9-20) mg/dL Creatinine 1.26 H (0.66-1.25) mg/dL Glucose 101 H (74-99) mg/dL Calcium 8.6 (8.4-10.2) mg/dL AST 33 (17-59) U/L ALT 28 (4-49) U/L Alkaline Phosphatase 48 (38-126) U/L Total Protein 5.8 L (6.3-8.2) g/dL Albumin 3.2 L (3.5-5.0) g/dL Current Medications Generic Name Dose Route Start Last Admin Trade Name Freq PRN Reason Stop Dose Admin Hydrocodone Bitart/Acetaminophen 1 each 09/12/19 13:06 Collyer 5-325 PO Q4HR PRN Moderate Pain Sodium Chloride 1,000 mls @ 75 mls/hr 09/12/19 13:15 Saline 0.9% IV .[id number] PHILLY Naloxone HCl 0.2 mg 09/12/19 13:06 Narcan IV Q2M PRN Opioid Reversal Intake and Output 09/11/19 09/12/19 09/12/19 22:59 06:59 14:59 Other: Weight 107.955 kg Patient Weight 09/13/19 07:59 Weight 107.955 kg 09/12/19 13:04 09/12/19 13:04
[2019-09-12] MEDS: METOPROLOL TARTRATE 25 MG TAB PO SCH ×2 (15:01→20:15)
[2019-09-12] MEDS: HYDROcodone/APAP 5-325MG 1 EACH TAB PO PRN ×3 (15:40→23:55)
[2019-09-12] MEDS: APIXABAN 5 MG TAB PO SCH (20:15)
[2019-09-12] MEDS: MELATONIN 3 MG TABLET PO SCH (20:19)
--- NOTE | 2019-09-12 23:55 | P.CONS ---
History of Present Illness - Reason for Consult Consult date: 09/12/19 bilateral leg wounds Requesting physician: Pinky Sal - Chief Complaint fall x 1 day - History of Present Illness Patient is 84-year-old male well-known to my service who was recently admitted at this facility and did have bilateral lower extremity venous stasis ulcer and cellulitis for the patient is completed his antibiotic therapy patient current local wound care to the right leg wound has been Hydrofera Blue dressing and to the left leg wound has been Aquacel silver dressing patient has not been brought to the ER after apparently the patient did have a fall at home while he was getting a shower patient said he lost his balance on the left leg and re ceived back to the left knee area patient did have pain to the left knee more of a dull aching 3-4 out of 10 and no radiation patient subsequently was evaluated by the ER physician he did have an x-rays of the left foot and ankle in the area did not show any fracture CT was negative for any fracture as well patient subsequently has been admitted to hospital for further work-up of his pain and fall I was asked to see the patient regarding his lower extremity wound local wound care and possible need for antibiotic therapy this patient currently is afebrile and his white count was normal. Review of Systems Positive point has been mentioned in HPI rest of the systems are negative Past Medical History Past Medical History: Atrial Fibrillation, Heart Failure Additional Past Medical History / Comment(s): Pt recently had an influenza and was on an antibiotic, recently told he has a "spot" on his R lung-not worked up yet, Afib with RVR in past, no CPAP necessary, kidney stones, psoriasis, reactive airway, urinary frequency. 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 Father Family Medical History: Cancer Additional Family Medical History / Comment(s): Father at age 80 of prostrate cancer. Brother(s) Family Medical History: Cancer Additional Family Medical History / Comment(s): Patient has a total of 6 brothers. One brother with history of atrial fibrillation and kidney cancer, second brother with valvular heart disease, third brother with Parkinson's. Daughter(s) Additional Family Medical History / Comment(s): Patient has 3 children and one daughter from complications from obesity. Other 2 children have no major medical problems. Medications and Allergies Home Medications Medication Instructions Recorded Confirmed Type Tamsulosin HCl [Flomax] 0.4 mg PO BID@0700,1900 07/12/14 09/12/19 History Acetaminophen Tab [Tylenol] 1,000 mg PO Q8H PRN 08/14/19 09/12/19 History Aspirin EC [Ecotrin Low Dose] 81 mg PO HS@1900 08/14/19 09/12/19 History Furosemide [Lasix] 40 mg PO DAILY@1400 08/14/19 09/12/19 History Furosemide [Lasix] 80 mg PO DAILY@0700 08/14/19 09/12/19 History Lisinopril [Zestril] 2.5 mg PO DAILY@0700 08/14/19 09/12/19 History Melatonin 6 mg PO HS@2100 08/14/19 09/12/19 History Apixaban [Eliquis] 5 mg PO BID@0700,1900 09/12/19 09/12/19 History Docusate [Colace] 100 mg PO BID PRN 09/12/19 09/12/19 History Lansoprazole [Prevacid] 15 mg PO DAILY@0700 09/12/19 09/12/19 History Levothyroxine Sodium [Synthroid] 25 mcg PO DAILY@0500 09/12/19 09/12/19 History Metoprolol Tartrate [Lopressor] 25 mg PO BID@0700,1900 09/12/19 09/12/19 History Midodrine [ProAmatine] 10 mg PO TID@0700,1100,1600 09/12/19 09/12/19 History Spironolactone [Aldactone] 25 mg PO DAILY@0700 09/12/19 09/12/19 History Allergies Allergy/AdvReac Type Severity Reaction Status Date / Time isosorbide mononitrate Allergy Unknown Verified 09/12/19 15:00 [From Imdur] Penicillins Allergy Rash/Hives Verified 09/12/19 15:00 albuterol [From Ventolin HFA] AdvReac Rapid Verified 09/12/19 15:00 Heart Rate amiodarone HCl AdvReac LUNGS/EYE Verified 09/12/19 15:00 [From Cordarone] PROBLEMS codeine AdvReac Nausea & Verified 09/12/19 15:00 Vomiting enalapril maleate AdvReac Cough Verified 09/12/19 15:00 [From Vasotec] enalaprilat dihydrate AdvReac Cough Verified 09/12/19 15:00 [From Vasotec] hydromorphone HCl AdvReac Nausea & Verified 09/12/19 15:00 [From Dilaudid] Vomiting loratadine [From Claritin] AdvReac Rapid Verified 09/12/19 15:00 Heart Rate morphine AdvReac Nausea & Verified 09/12/19 15:00 Vomiting procainamide HCl AdvReac "FLUID ON Verified 09/12/19 15:00 [From Pronestyl] HEART" tetanus toxoid, adsorbed AdvReac "JOINT Verified 09/12/19 15:00 STIFFNESS" Physical Exam Vitals: Vital Signs Temp Pulse Pulse Resp BP BP Pulse Ox 09/12/19 16:00 125 H 18 09/12/19 15:45 126 H 18 97/47 99 09/12/19 15:15 120 H 09/12/19 15:05 98.4 F 125 H 16 111/55 09/12/19 15:03 138 H 18 98/51 96 09/12/19 14:02 125 H 18 96/60 100 09/12/19 13:05 112 H 18 110/80 98 09/12/19 12:47 130 H 09/12/19 12:05 110 H 18 99/48 100 09/12/19 11:25 116 H 18 85/52 94 L 09/12/19 10:21 102 H 18 100/48 98 09/12/19 09:15 109 H 18 95/49 97 09/12/19 08:03 98.2 F 66 18 107/66 100 Intake and Output 09/12/19 09/12/19 09/12/19 06:59 14:59 22:59 Intake Total 240 Output Total 600 Balance -360 Intake: Oral 240 Output: Urine 600 Other: # Bowel Movements 0 Weight 107.955 kg 107.955 kg GENERAL DESCRIPTION: Elderly male lying in bed, no distress. No tachypnea or accessory muscle of respiration use. HEENT: Shows Pallor , no scleral icterus. Oral mucous membrane is dry. NECK: Trachea central, no thyromegaly. LUNGS: Unlabored breathing. Clear to auscultation anteriorly. No wheeze or crackle. HEART: S1, S2, regular rate and rhythm. ABDOMEN: Soft, no tenderness , guarding or rigidity EXTREMITIES: Bilateral lower extremity with swelling significant redness wound right anterior leg x2 there was no slough tissue no surrounding redness or any drainage left posterior leg wound did have minimal slough some swelling but no redness or foul-smelling drainage sKIN: No rash, no masses palpable. NEUROLOGICAL: The patient is awake, alert, oriented x3, mood and affect normal. Results CBC & Chem 7: 09/12/19 13:04 09/12/19 13:04 Labs: Abnormal Lab Results - Last 24 Hours (Table) 09/12/19 09/12/19 09/12/19 Range/Units 13:04 13:04 13:04 RBC 3.21 L (4.30-5.90) m/uL Hgb 10.8 L (13.0-17.5) gm/dL Hct 33.1 L (39.0-53.0) % MCV 103.3 H (80.0-100.0) fL PT 12.5 H (9.0-12.0) sec INR 1.2 H (<1.2) Sodium 135 L (137-145) mmol/L BUN 44 H (9-20) mg/dL Creatinine 1.26 H (0.66-1.25) mg/dL Glucose 101 H (74-99) mg/dL Creatine Kinase 176 H (55-170) U/L C-Reactive Protein 48.5 H (<10.0) mg/L Total Protein 5.8 L (6.3-8.2) g/dL Albumin 3.2 L (3.5-5.0) g/dL Assessment and Plan Assessment: patient with bilateral lower extremity wounds venous stasis in this patient who did have significant swelling in his leg on his last admission that seemed to have improved and his wound have decreased in size but not completely healed wound do not have significant slough tissue or secondary cellulitis (1) Leg wound, right Current Visit: Yes Status: Acute Code(s): S81.801A - UNSPECIFIED OPEN WOUND, RIGHT LOWER LEG, INITIAL ENCOUNTER SNOMED Code(s): 437983592 (2) Leg wound, left Current Visit: Yes Status: Acute Code(s): S81.802A - UNSPECIFIED OPEN WOUND, LEFT LOWER LEG, INITIAL ENCOUNTER SNOMED Code(s): 660286460 Plan: 1-local wound care to the right anterior leg wound with Aquacel silver dressing to be changed every 48 hour followed by Tex wrap's for compression 2-left posterior leg wound may have benefited from Hydrofera Blue dressing which is not available next apply Aquacel silver dressing dry and an Tex wrap from just above the toe to below the knee 3-no need for systemic antibiotic therapy We will follow on clinical condition and cultures to further adjust medication if needed Thank you for this consultation we will follow the patient along with you Time with Patient: Greater than 30
[2019-09-13] MEDS: SODIUM CHLORIDE 0.9% 1,000 ML IV SCH ×2 (05:20→16:45)
[2019-09-13] MEDS: SPIRONOLACTONE 25 MG TAB PO SCH (06:02)
[2019-09-13] MEDS: MIDODRINE 5 MG TAB PO SCH ×3 (06:02→16:44)
[2019-09-13] MEDS: LEVOTHYROXINE 25 MCG TAB PO SCH (06:03)
[2019-09-13] MEDS: PANTOPRAZOLE 40 MG TABLET PO SCH (06:03)
[2019-09-13] MEDS: TAMSULOSIN 0.4 MG CAP.ER.24H PO SCH ×2 (06:03→18:44)
[2019-09-13] MEDS: HYDROcodone/APAP 5-325MG 1 EACH TAB PO PRN ×2 (06:47→14:29)
[2019-09-13] MEDS ORDERED: FUROSEMIDE 80 MG TAB PO SCH (07:00)
[2019-09-13] MEDS ORDERED: LIDOCAINE 2% INJ 20 MG/ML (20 ML MDV) SQ STA (08:44)
[2019-09-13] MEDS: METOPROLOL TARTRATE 25 MG TAB PO SCH ×3 (08:59→22:28)
[2019-09-13] MEDS: APIXABAN 5 MG TAB PO SCH ×2 (08:59→22:29)
[2019-09-13] MEDS: HYDROCORTISONE SUCCINATE 100 MG/2 ML VIAL IV SCH ×3 (11:04→22:29)
--- NOTE | 2019-09-13 11:27 | P.CNOR ---
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 He is also had right knee and left hip replacement. He states that he has had a few falls recently. He was at [facility] for congestive heart failure the last couple of months and states that he did have a fall prior to that. He went to [facility] for rehab after that admission. He states that he has been unable to extend the knee actively and his knee continues to give out on him. He had a recent fall prior to this admission and states that his knee gave out on him causing him to fall. 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 We are consulted for evaluation of the left knee. Past Medical History Past Medical History: Atrial Fibrillation, Heart Failure Additional Past Medical History / Comment(s): Pt recently had an influenza and was on an antibiotic, recently told he has a "spot" on his R lung-not worked up yet, Afib with RVR in past, no CPAP necessary, kidney stones, psoriasis, reactive airway, urinary frequency. 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 Father Family Medical History: Cancer Additional Family Medical History / Comment(s): Father at age 80 of prostrate cancer. Brother(s) Family Medical History: Cancer Additional Family Medical History / Comment(s): Patient has a total of 6 brothers. One brother with history of atrial fibrillation and kidney cancer, second brother with valvular heart disease, third brother with Parkinson's. Daughter(s) Additional Family Medical History / Comment(s): Patient has 3 children and one daughter from complications from obesity. Other 2 children have no major medical problems. Medications and Allergies Home Medications Medication Instructions Recorded Confirmed Type Tamsulosin HCl [Flomax] 0.4 mg PO BID@0700,1900 07/12/14 09/12/19 History Acetaminophen Tab [Tylenol] 1,000 mg PO Q8H PRN 08/14/19 09/12/19 History Aspirin EC [Ecotrin Low Dose] 81 mg PO HS@1900 08/14/19 09/12/19 History Furosemide [Lasix] 40 mg PO DAILY@1400 08/14/19 09/12/19 History Furosemide [Lasix] 80 mg PO DAILY@0700 08/14/19 09/12/19 History Lisinopril [Zestril] 2.5 mg PO DAILY@0700 08/14/19 09/12/19 History Melatonin 6 mg PO HS@2100 08/14/19 09/12/19 History Apixaban [Eliquis] 5 mg PO BID@0700,1900 09/12/19 09/12/19 History Docusate [Colace] 100 mg PO BID PRN 09/12/19 09/12/19 History Lansoprazole [Prevacid] 15 mg PO DAILY@0700 09/12/19 09/12/19 History Levothyroxine Sodium [Synthroid] 25 mcg PO DAILY@0500 09/12/19 09/12/19 History Metoprolol Tartrate [Lopressor] 25 mg PO BID@0700,1900 09/12/19 09/12/19 History Midodrine [ProAmatine] 10 mg PO TID@0700,1100,1600 09/12/19 09/12/19 History Spironolactone [Aldactone] 25 mg PO DAILY@0700 09/12/19 09/12/19 History Allergies Allergy/AdvReac Type Severity Reaction Status Date / Time isosorbide mononitrate Allergy Unknown Verified 09/12/19 15:00 [From Imdur] Penicillins Allergy Rash/Hives Verified 09/12/19 15:00 albuterol [From Ventolin HFA] AdvReac Rapid Verified 09/12/19 15:00 Heart Rate amiodarone HCl AdvReac LUNGS/EYE Verified 09/12/19 15:00 [From Cordarone] PROBLEMS codeine AdvReac Nausea & Verified 09/12/19 15:00 Vomiting enalapril maleate AdvReac Cough Verified 09/12/19 15:00 [From Vasotec] enalaprilat dihydrate AdvReac Cough Verified 09/12/19 15:00 [From Vasotec] hydromorphone HCl AdvReac Nausea & Verified 09/12/19 15:00 [From Dilaudid] Vomiting loratadine [From Claritin] AdvReac Rapid Verified 09/12/19 15:00 Heart Rate morphine AdvReac Nausea & Verified 09/12/19 15:00 Vomiting procainamide HCl AdvReac "FLUID ON Verified 09/12/19 15:00 [From Pronestyl] HEART" tetanus toxoid, adsorbed AdvReac "JOINT Verified 09/12/19 15:00 STIFFNESS" Physical Examination This is a pleasant 84-year-old male in no acute distress. He is alert and oriented 3. Exam of the left knee reveals that his incision is well-healed. There is no erythema. There is mild ecchymosis to the lateral aspect of the knee. The left knee is larger than the right knee and I'm not able to palpate an effusion or any fluid collection in the knee. He is unable to straight leg raise. With the knee is flexed he is unable to extend the knee. He has full foot and ankle motion bilaterally. There is a chronic wound to the posterior medial aspect of the calf with mild drainage. The remainder of his musculoskeletal exam is unremarkable. Results X-rays of the left lower extremity reveals total knee implants in good position and alignment. No evidence of loosening no osteolysis noted. 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 There is a syndesmotic screw in place. No acute fractures identified to the lower extremity. - Labs Labs: Abnormal Lab Results - Last 24 Hours (Table) 09/12/19 09/12/19 09/12/19 Range/Units 13:04 13:04 13:04 RBC 3.21 L (4.30-5.90) m/uL Hgb 10.8 L (13.0-17.5) gm/dL Hct 33.1 L (39.0-53.0) % MCV 103.3 H (80.0-100.0) fL PT 12.5 H (9.0-12.0) sec INR 1.2 H (<1.2) Sodium 135 L (137-145) mmol/L BUN 44 H (9-20) mg/dL Creatinine 1.26 H (0.66-1.25) mg/dL Glucose 101 H (74-99) mg/dL Creatine Kinase 176 H (55-170) U/L C-Reactive Protein 48.5 H (<10.0) mg/L Total Protein 5.8 L (6.3-8.2) g/dL Albumin 3.2 L (3.5-5.0) g/dL H & H 09/12/19 Range/Units 13:04 Hgb 10.8 L (13.0-17.5) gm/dL Hct 33.1 L (39.0-53.0) % Coagulation 09/12/19 Range/Units 13:04 INR 1.2 H (<1.2) Result Diagrams: 09/12/19 13:04 09/12/19 13:04 Assessment and Plan (1) Atrial fibrillation Current Visit: Yes Status: Acute Code(s): I48.91 - UNSPECIFIED ATRIAL FIBRILLATION SNOMED Code(s): 16132780 (2) Fall Current Visit: Yes Status: Acute Code(s): W19.XXXA - UNSPECIFIED FALL, INITIAL ENCOUNTER SNOMED Code(s): 7557636 (3) Left knee pain Current Visit: Yes Status: Acute Code(s): M25.562 - PAIN IN LEFT KNEE SNOMED Code(s): 99630765 (4) Leg wound, left Current Visit: Yes Status: Acute Code(s): S81.802A - UNSPECIFIED OPEN WOUND, LEFT LOWER LEG, INITIAL ENCOUNTER SNOMED Code(s): 398002829 (5) Atrial fibrillation with RVR Current Visit: No Status: Acute Code(s): I48.91 - UNSPECIFIED ATRIAL FIBRILLATION SNOMED Code(s): 447142196818387 (6) Quadriceps weakness Current Visit: Yes Status: Acute Code(s): M62.81 - MUSCLE WEAKNESS (GENERALIZED) SNOMED Code(s): 064315077 Plan: The clinical and x-ray findings are discussed with the patient. The patient is evaluated by Dr. Aragon as well. 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 Ultrasound is ordered today. I have also ordered x-ray of the pelvis to assess his left hip. We will continue to follow.
--- NOTE | 2019-09-13 12:21 | P.HPIM ---
History of Present Illness H&P Date: 09/13/19 This is an 84-year-old male patient of Dr. Mosqueda with past medical history of paroxysmal atrial fibrillation status post cardiac ablation in 2007 as well as cardioversions a couple times since then, hypertension, osteoarthritis, obstructive sleep apnea but not currently on a CPAP, psoriasis, hard of hearing. Patient was treated in July at [facility] for heart failure and that that time also developed hematoma to the left hip. Patient was hospitalized on August 14 through August 25 at [facility] at which time he was treated for A. fib with RVR status post BRIAN and electrocardioversion, chronic lower extremity vascular ulcers and edema with ce llulitis and acute on chronic systolic and diastolic heart failure. Patient had been started on midodrine due to hypotension. Patient was discharged to [facility] and patient states that he left the snf and has been home for 3 days. Patient has chronic weakness in his left lower extremity as well as pain in the left calf area due to wound. Patient apparently was in the shower had a mechanical fall twisting his left knee and was unable to bear weight following this. He has had a previous knee replacement on the left by Dr. Mcneal and a hip replacement by Dr. Starkey. Currently, patient denies any lightheadedness or dizziness, no shortness of breath, no palpitations. Patient came into [facility] emergency center for evaluation. He was afebrile, blood pressure 107/66, pulse ox 100% on room air, heart rate 66. WBC 9.4, hemoglobin 10.8, platelet count 191. Sodium 135, potassium 4.3, chloride 103, CO2 25, BUN 44 and creatinine 1.26, blood sugar 101, CK 176, C- reactive protein 48.5, proBNP 1920, cortisol level VIII. EKG was atrial fibrillation heart rate of 133 with no acute changes. Left knee, tib-fib, foot and ankle x-ray showed no acute fracture or dislocation. CAT scan of the left lower extremity shows no acute fracture or dislocation from the knee to the toes. [facility] and consults requested for Dr. Sa iqbal, orthopedics and cardiology. Review of Systems Constitutional: Reports fatigue, Reports weakness, Denies chills, Denies fever, Denies poor appetite Eyes: denies blurred vision, denies pain Ears, nose, mouth and throat: Denies dysphagia, Denies headache, Denies nasal congestion, Denies nasal discharge, Denies sore throat Cardiovascular: Reports leg edema, Denies chest pain, Denies dyspnea on exertion, Denies edema, Denies lightheadedness, Denies palpitations, Denies shortness of breath, Denies syncope Respiratory: Denies cough, Denies cough with sputum, Denies dyspnea, Denies excessive sputum, Denies hemoptysis, Denies home oxygen, Denies respiratory infections, Denies wheezing Gastrointestinal: Denies abdominal pain, Denies constipation, Denies diarrhea, Denies loss of appetite, Denies nausea, Denies vomiting Genitourinary: Denies dysuria Musculoskeletal: Reports muscle weakness, Denies myalgias Musculoskeletal: left: knee pain Integumentary: Reports wounds, Denies pruritus, Denies rash Neurological: Denies change in mentation, Denies change in speech, Denies numbness, Denies seizures, Denies weakness Psychiatric: Denies anxiety, Denies depression Endocrine: Denies fatigue, Denies weight change Past Medical History Past Medical History: Atrial Fibrillation, Heart Failure Additional Past Medical History / Comment(s): Pt recently had an influenza and was on an antibiotic, recently told he has a "spot" on his R lung-not worked up yet, Afib with RVR in past, no CPAP necessary, kidney stones, psoriasis, reactive airway, urinary frequency. History of Any Multi-Drug Resistant Organisms: None Reported Past Surgical History: Cardiac Ablation, Joint Replacement, Orthopedic Surgery Additional Past Surgical History / Comment(s): cardiac ablation X2, kidney surgery 1955, iron knee, iron hip, Cardioversionx4 chip right shoulder, loss finger on left hand Past Anesthesia/Blood Transfusion Reactions: No Reported Reaction Past Psychological History: No Psychological Hx Reported Smoking Status: Former smoker Past Alcohol Use History: None Reported Additional Past Alcohol Use History / Comment(s): Patient smoked a pipe for 7 years and quit 40 years ago. No alcohol use, no marijuana or illicit drug use. Past Drug Use History: None Reported - Past Family History Mother Family Medical History: Cancer Additional Family Medical History / Comment(s): Mother at age 82 of lung cancer. Father Family Medical History: Cancer Additional Family Medical History / Comment(s): Father at age 80 of prostrate cancer. Brother(s) Family Medical History: Cancer Additional Family Medical History / Comment(s): Patient has a total of 6 brothers. One brother with history of atrial fibrillation and kidney cancer, second brother with valvular heart disease, third brother with Parkinson's. Daughter(s) Additional Family Medical History / Comment(s): Patient has 3 children and one daughter from complications from obesity. Other 2 children have no major medical problems. Medications and Allergies Home Medications Medication Instructions Recorded Confirmed Type Tamsulosin HCl [Flomax] 0.4 mg PO BID@0700,1900 07/12/14 09/12/19 History Acetaminophen Tab [Tylenol] 1,000 mg PO Q8H PRN 08/14/19 09/12/19 History Aspirin EC [Ecotrin Low Dose] 81 mg PO HS@1900 08/14/19 09/12/19 History Furosemide [Lasix] 40 mg PO DAILY@1400 08/14/19 09/12/19 History Furosemide [Lasix] 80 mg PO DAILY@0700 08/14/19 09/12/19 History Lisinopril [Zestril] 2.5 mg PO DAILY@0700 08/14/19 09/12/19 History Melatonin 6 mg PO HS@2100 08/14/19 09/12/19 History Apixaban [Eliquis] 5 mg PO BID@0700,1900 09/12/19 09/12/19 History Docusate [Colace] 100 mg PO BID PRN 09/12/19 09/12/19 History Lansoprazole [Prevacid] 15 mg PO DAILY@0700 09/12/19 09/12/19 History Levothyroxine Sodium [Synthroid] 25 mcg PO DAILY@0500 09/12/19 09/12/19 History Metoprolol Tartrate [Lopressor] 25 mg PO BID@0700,1900 09/12/19 09/12/19 History Midodrine [ProAmatine] 10 mg PO TID@0700,1100,1600 09/12/19 09/12/19 History Spironolactone [Aldactone] 25 mg PO DAILY@0700 09/12/19 09/12/19 History Allergies Allergy/AdvReac Type Severity Reaction Status Date / Time isosorbide mononitrate Allergy Unknown Verified 09/12/19 15:00 [From Imdur] Penicillins Allergy Rash/Hives Verified 09/12/19 15:00 albuterol [From Ventolin HFA] AdvReac Rapid Verified 09/12/19 15:00 Heart Rate amiodarone HCl AdvReac LUNGS/EYE Verified 09/12/19 15:00 [From Cordarone] PROBLEMS codeine AdvReac Nausea & Verified 09/12/19 15:00 Vomiting enalapril maleate AdvReac Cough Verified 09/12/19 15:00 [From Vasotec] enalaprilat dihydrate AdvReac Cough Verified 09/12/19 15:00 [From Vasotec] hydromorphone HCl AdvReac Nausea & Verified 09/12/19 15:00 [From Dilaudid] Vomiting loratadine [From Claritin] AdvReac Rapid Verified 09/12/19 15:00 Heart Rate morphine AdvReac Nausea & Verified 09/12/19 15:00 Vomiting procainamide HCl AdvReac "FLUID ON Verified 09/12/19 15:00 [From Pronestyl] HEART" tetanus toxoid, adsorbed AdvReac "JOINT Verified 09/12/19 15:00 STIFFNESS" Physical Exam Vitals: Vital Signs Temp Pulse Pulse Resp BP BP Pulse Ox 09/13/19 04:00 98.1 F 128 H 18 92/54 94 L 09/13/19 00:00 97.8 F 136 H 18 98/50 95 09/12/19 20:00 98 F 120 H 18 102/56 97 09/12/19 16:00 125 H 18 09/12/19 15:45 126 H 18 97/47 99 09/12/19 15:15 120 H 09/12/19 15:05 98.4 F 125 H 16 111/55 09/12/19 15:03 138 H 18 98/51 96 09/12/19 14:02 125 H 18 96/60 100 09/12/19 13:05 112 H 18 110/80 98 09/12/19 12:47 130 H 09/12/19 12:05 110 H 18 99/48 100 09/12/19 11:25 116 H 18 85/52 94 L 09/12/19 10:21 102 H 18 100/48 98 Intake and Output 09/12/19 09/13/19 09/13/19 21:59 06:59 14:59 Intake Total Output Total Balance Intake: Oral Output: Urine Other: # Bowel Movements Weight Gen: This is an 84-year-old male. He is sitting up in bed and appears to be comfortable and in no acute distress. No respiratory distress is noted. HEENT: Head is atraumatic, normocephalic. Pupils equal, round. Sclerae is anicteric. NECK: Supple. No JVD. No lymphadenopathy. No thyromegaly. LUNGS: Clear to auscultation. No wheezes or rhonchi. No intercostal retractions. HEART: Irregularly irregular rate and rhythm. Systolic ejection murmur. ABDOMEN: Soft. Bowel sounds are present. No masses. No tenderness. EXTREMITIES: Trace bilateral pedal edema. No calf tenderness. Multiple lower extremity wounds much improved since last hospitalization. Please see nursing documentation and pictures for details. NEUROLOGICAL: Patient is awake, alert and oriented x3. Cranial nerves 2 through 12 are grossly intact. Results CBC & Chem 7: 09/14/19 05:40 09/14/19 05:40 Labs: Abnormal Lab Results - Last 24 Hours (Table) 09/12/19 09/12/19 09/12/19 Range/Units 13:04 13:04 13:04 RBC 3.21 L (4.30-5.90) m/uL Hgb 10.8 L (13.0-17.5) gm/dL Hct 33.1 L (39.0-53.0) % MCV 103.3 H (80.0-100.0) fL PT 12.5 H (9.0-12.0) sec INR 1.2 H (<1.2) Sodium 135 L (137-145) mmol/L BUN 44 H (9-20) mg/dL Creatinine 1.26 H (0.66-1.25) mg/dL Glucose 101 H (74-99) mg/dL Creatine Kinase 176 H (55-170) U/L C-Reactive Protein 48.5 H (<10.0) mg/L Total Protein 5.8 L (6.3-8.2) g/dL Albumin 3.2 L (3.5-5.0) g/dL Thrombosis Risk Factor Assmnt - DVT/VTE Prophylaxis DVT/VTE Prophylaxis: Pharmacologic Prophylaxis ordered - Choose All That Apply Each Factor Represents 1 point: Serious lung disease incl. pneumonia (< 1month) Each Risk Factor Represents 3 Points: Age 75 years or older Thrombosis Risk Factor Assessment Total Risk Factor Score: 4 Thrombosis Risk Factor Assessment Level: Moderate Risk Assessment and Plan Plan: 1. Mechanical fall injuring left leg. Orthopedic consult appreciated. 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 X-ray of the pelvis was also ordered by orthopedics. 2. Chronic lower extremity vascular ulcers. Consult with Dr. Kilpatrick appreciated. Local wound care with Aquacel Ag dressing every 48 hours and Tex wrap for compression, left posterior leg wound Hydrofera Blue dressing not avail able, no need for systemic antibiotics. 3. Chronic persistent atrial fibrillation. Continue Lopressor 25 mg twice daily, eliquis 5 mg twice daily. 4. Chronic hypotension. Continue midodrine. Lisinopril on hold 5. Chronic systolic and diastolic heart failure. Continue Lasix 80 mg in the morning and 40 mg in the afternoon, Aldactone 25 mg daily, Lopressor 25 mg twice daily, lisinopril on hold due to hypotension. 5. Benign prostatic hypertrophy. Monitor for urinary retention. Continue Flomax 0.4 mg twice daily. 6. Hypothyroidism. Continue levothyroxine 25 g daily. 7. Adrenal insufficiency. Patient started on Solu-Cortef 100 mg IV every 8 hours. 8. Chronic kidney disease stage II. Avoid nephrotoxic agents. 9. Anemia of chronic disease 10. Obstructive sleep apnea. Patient will need to use CPAP. 11. GI prophylaxis. Protonix. 12. DVT prophylaxis. Eliquis. Hospital admission for a minimum of 2 night stay. Discharge plan: To be determined. PT and OT evaluations. Impression and plan of care have been directed as dictated by the signing physician. Urmila Carey nurse practitioner acting as scribe for signing physician.
--- NOTE | 2019-09-13 12:37 | US ---
EXAMINATION TYPE: US extremity nonvascular ltd LT DATE OF EXAM: 09/13/2019 COMPARISON: CT lower extremity performed 09/12/2019 CLINICAL HISTORY: 84-year-old male left quadriceps tendon. Patient having knee pain. 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 There is no obvious fluid collection or mass affect se en. The quadricep tendon appears to insert normally at the patella region. This facility does not perform musculoskeletal ultrasound presently. If further imaging is indicated, MRI recommended. IMPRESSION: Limited ultrasound suprapatellar anterior left knee without any obvious fluid collections or evident quadriceps tendon disruption.
--- NOTE | 2019-09-13 12:41 | P.PN ---
Subjective Progress Note Date: 09/13/19 This is a pleasant 84-year-old male past medical history significant for chronic persistent atrial fibrillation on long-term anticoagulation status post cardioversion was successful for only one week, systolic heart failure and hypotension. He follows in the office with Dr. Martinez. We have been asked to see in consultation for hypotension. He presented to the emergency department after having a fall in the shower. He was just discharged from [facility] and they were attempting to get him in the shower for the first time since coming home. He was trying to lift his leg and it got caught on the shower ledge causing him to fall. On arrival he was found to be in atrial fibrillation with rapid ventricular response. Heart rate is fluctuating between 130 and 140 on the monitor. He denies symptoms of palpitations, dizziness, shortness of breath or chest pain. On 08/19/2019 he underwent a BRIAN cardioversion that was initially successful however the states it only lasted for about one week. Most recent echocardiogram obtained in August 2019 revealed impaired LV systolic function with ejection fraction 40-45%. 09/13/2019 Upon examination, patient is resting comfortably in bed. He feels fairly well. Pressure is relatively stable. Heart rate remains elevated in the 120s. He denies any complaints of chest discomfort, dizziness, lightheadedness, syncope, shortness of breath or edema. He complains of significant pain in his left leg and orthopedics has been consulted. Objective - Vital Signs Vital signs: Vital Signs Temp 98.1 F 09/13/19 04:00 Pulse 122 H 09/13/19 08:00 Resp 19 09/13/19 08:00 BP 120/90 09/13/19 08:00 Pulse Ox 95 09/13/19 08:00 Intake & Output 09/12/19 09/13/19 09/13/19 17:59 06:59 18:59 Intake Total Output Total Balance Weight Intake: Oral Output: Urine Other: # Bowel Movements - Exam PHYSICAL EXAMINATION: HEENT: Head is atraumatic, normocephalic. Pupils equal, round. Neck is supple. There is no elevated jugular venous pressure. HEART EXAMINATION: Heart sounds irregularly irregular, S1 and S2 with a systolic ejection murmur at the left sternal border, tachycardia noted. CHEST EXAMINATION: Lungs are clear to auscultation and precussion. No chest wall tenderness is noted on palpation or with deep breathing. ABDOMEN: Soft, nontender. Bowel sounds are heard. No organomegaly noted. EXTREMITIES: 2+ peripheral pulses with trace lower extremity edema with Tex wraps in place bilaterally. NEUROLOGIC patient is awake, alert and oriented x3. . - Labs CBC & Chem 7: 09/12/19 13:04 09/12/19 13:04 Labs: Abnormal Lab Results - Last 24 Hours (Table) 09/12/19 09/12/19 09/12/19 Range/Units 13:04 13:04 13:04 RBC 3.21 L (4.30-5.90) m/uL Hgb 10.8 L (13.0-17.5) gm/dL Hct 33.1 L (39.0-53.0) % MCV 103.3 H (80.0-100.0) fL PT 12.5 H (9.0-12.0) sec INR 1.2 H (<1.2) Sodium 135 L (137-145) mmol/L BUN 44 H (9-20) mg/dL Creatinine 1.26 H (0.66-1.25) mg/dL Glucose 101 H (74-99) mg/dL Creatine Kinase 176 H (55-170) U/L C-Reactive Protein 48.5 H (<10.0) mg/L Total Protein 5.8 L (6.3-8.2) g/dL Albumin 3.2 L (3.5-5.0) g/dL Assessment and Plan Assessment: #1 Atrial fibrillation with rapid ventricular response, chronic persistent refractory to cardioversion #2 Chronic systolic heart failure, ejection fraction 40-45%. Clinically euvolemic. #3 History of hypotension maintained on midodrine #4 Valvular heart disease Plan: From cardiology's perspective, we will decrease Lasix. Continue Aldactone. We will increase Lopressor to 25 mg by mouth 3 times a day. Continue telemetry monitoring. We'll continue to follow the patient and provide further recommendations accordingly. QUALITY SUPERVISOR note has been reviewed, I agree with a documented findings and plan of care. Patient was seen and examined.
[2019-09-13] MEDS ORDERED: FUROSEMIDE 40 MG TAB PO SCH (14:00)
[2019-09-13] MEDS: FUROSEMIDE 40 MG TAB PO SCH (16:44)
[2019-09-13] MEDS: ASPIRIN 81 MG PO SCH (18:44)
[2019-09-13] MEDS: MELATONIN 3 MG TABLET PO SCH (22:28)
--- NOTE | 2019-09-14 06:16 | PN ---
PROGRESS NOTE DATE OF SERVICE: 09/13/2019 REASON FOR FOLLOWUP: Bilateral lower extremity wounds. INTERVAL HISTORY: The patient is currently afebrile. He has been breathing comfortably. Denies having any chest pain, shortness of breath or cough. No nausea, vomiting. No abdominal pain. No pain to the lower extremity wound area. PHYSICAL EXAMINATION: Blood pressure 119/59 with a pulse of 122, temperature 98.3. He is 96% on room air. General description is an elderly male lying in bed in no distress. RESPIRATORY SYSTEM: Unlabored breathing, clear to auscultation anteriorly. HEART: S1, S2. Regular rate and rhythm. ABDOMEN: Soft, no tenderness. Legs are currently wrapped up. No obvious drainage on the dressing. DIAGNOSTIC IMPRESSION AND PLAN: Patient with bilateral lower extremity wound currently with no evidence of any cellulitis. Local care to continue with Aquacel dressing and Tex wrap. Monitor clinical course closely. Continue with supportive care. MMODL / IJN: [id number] /
[2019-09-14] MEDS: SODIUM CHLORIDE 0.9% 1,000 ML IV SCH ×2 (06:21→17:50)
[2019-09-14] MEDS: SPIRONOLACTONE 25 MG TAB PO SCH (06:21)
[2019-09-14] MEDS: TAMSULOSIN 0.4 MG CAP.ER.24H PO SCH ×2 (06:21→17:51)
[2019-09-14] MEDS: LEVOTHYROXINE 25 MCG TAB PO SCH (06:21)
[2019-09-14] MEDS: PANTOPRAZOLE 40 MG TABLET PO SCH (06:21)
[2019-09-14] MEDS: MIDODRINE 5 MG TAB PO SCH ×3 (06:21→16:00)
[2019-09-14 06:43] LABS: HCT 27.9 % (39.0-53.0); MCHC 32.4 g/dL (31.0-37.0); MCV 104.8 fL (80.0-100.0); Macrocytosis Slight; Mean Platelet Volume 8.2; Platelet Count 157 k/uL (150-450); RBC 2.66 m/uL (4.30-5.90); RDW 13.8 % (11.5-15.5); WBC 11.5 k/uL (3.8-10.6)
[2019-09-14 06:57] LABS: African American GFR (CKD) >90 (>60 ml/min/1.73 sqM); Anion Gap 6 mmol/L; Blood Urea Nitrogen 29 mg/dL (9-20); Calcium 8.4 mg/dL (8.4-10.2); Carbon Dioxide 25 mmol/L (22-30); Chloride 106 mmol/L (98-107); Glucose 113 mg/dL (74-99); Non-African American GFR(CKD) 82 (>60 ml/min/1.73 sqM); Potassium 4.9 mmol/L (3.5-5.1); Sodium 137 mmol/L (137-145)
[2019-09-14] MEDS: APIXABAN 5 MG TAB PO SCH ×2 (08:12→21:06)
[2019-09-14] MEDS: FUROSEMIDE 40 MG TAB PO SCH ×2 (08:13→16:00)
[2019-09-14] MEDS: METOPROLOL TARTRATE 25 MG TAB PO SCH (08:13)
[2019-09-14] MEDS: HYDROCORTISONE SUCCINATE 100 MG/2 ML VIAL IV SCH (08:13)
[2019-09-14] MEDS: HYDROcodone/APAP 5-325MG 1 EACH TAB PO PRN (08:17)
--- NOTE | 2019-09-14 11:37 | P.PN ---
Subjective Progress Note Date: 09/14/19 This is a pleasant 84-year-old male past medical history significant for chronic persistent atrial fibrillation on long-term anticoagulation status post cardioversion was successful for only one week, systolic heart failure and hypotension. He follows in the office with Dr. Martinez. We have been asked to see in consultation for hypotension. He presented to the emergency department after having a fall in the shower. On 08/19/2019 he underwent a BRIAN cardioversion that was initially successful however the states it only lasted for about one week. Most recent echocardiogram obtained in August 2019 revealed impaired LV systolic function with ejection fraction 40-45%. At the time of my examination this morning, patient overall was feeling well, his heart rate continues to be in the 120 to 130 range quite consistently, it did go up into the 170 range briefly after he was up to the bathroom through the night last night. Patient did complain of an episode of chest pressure with associated diaphoresis last night, he states that he had a productive cough following that the symptoms seemed to subside. Patient was on 25 mg of metoprolol 3 times a day this morning, we will increase that dose to 50 3 times a day to optimize his heart rate control. White blood cell count 11.5, hemoglobin 9.0, platelet count 157. Sodium 137, potassium 4.9, BUN 29, creatinine 0.8. Objective - Vital Signs Vital signs: Vital Signs Temp 98.3 F 09/14/19 08:10 Pulse 84 09/14/19 08:10 Resp 18 09/14/19 08:10 BP 114/73 09/14/19 08:10 Pulse Ox 95 09/14/19 08:10 Intake & Output 09/13/19 09/14/19 09/14/19 18:59 06:59 18:59 Intake Total 180 Output Total 2400 650 Balance -2220 -650 Weight 111.9 kg Intake: Oral 180 Output: Urine 2400 650 Other: # Voids 1 # Bowel Movements 0 - Exam PHYSICAL EXAMINATION: HEENT: Head is atraumatic, normocephalic. Pupils equal, round. Neck is supple. There is no elevated jugular venous pressure. HEART EXAMINATION: Heart sounds irregularly irregular, S1 and S2 with a systolic ejection murmur at the left sternal border, tachycardia noted. CHEST EXAMINATION: Lungs are clear to auscultation and precussion. No chest wall tenderness is noted on palpation or with deep breathing. ABDOMEN: Soft, nontender. Bowel sounds are heard. No organomegaly noted. EXTREMITIES: 2+ peripheral pulses with trace lower extremity edema with Tex wraps in place bilaterally. NEUROLOGIC patient is awake, alert and oriented x3. - Labs CBC & Chem 7: 09/14/19 05:40 09/14/19 05:40 Labs: Abnormal Lab Results - Last 24 Hours (Table) 09/14/19 09/14/19 Range/Units 05:40 05:40 WBC 11.5 H (3.8-10.6) k/uL RBC 2.66 L (4.30-5.90) m/uL Hgb 9.0 L D (13.0-17.5) gm/dL Hct 27.9 L (39.0-53.0) % MCV 104.8 H (80.0-100.0) fL BUN 29 H (9-20) mg/dL Glucose 113 H (74-99) mg/dL Assessment and Plan Plan: Assessment and Plan: #1 Atrial fibrillation with rapid ventricular response, chronic persistent #2 Chronic systolic heart failure, ejection fraction 40-45%. Clinically euvolemic. #3 History of hypotension maintained on midodrine #4 Valvular heart disease Plan We will increase the dose of beta ann to 50 mg by mouth 3 times a day for more optimal heart rate control. Continue the rest of the patient's medication. DNP note has been reviewed, I agree with a documented findings and plan of care. Patient was seen and examined.
--- NOTE | 2019-09-14 12:07 | P.PN ---
Subjective Progress Note Date: 09/14/19 Principal diagnosis: Left knee pain. Multiple medical Comorbidities. his is an 84-year-old male with history of total left knee arthroplasty in the past. He is also had right knee and left hip replacement. He states that he has had a few falls recently. He was at [facility] for congestive heart failure the last couple of months and states that he did have a fall prior to that. He had a large hematoma to the posterior aspect of his thigh at that time. He went to [facility] for rehab after that admission. He states that he has been unable to extend the knee actively and his knee continues to give out on him. He had a recent fall prior to this admission and states that his knee gave out on him causing him to fall. 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 We are consulted for evaluation of the left knee. Ultrasound of the left knee was performed yesterday which showed no evidence of quadriceps rupture. The patient has no new complaints or concerns today. Vital signs are stable. Objective - Vital Signs Vital signs: Vital Signs Temp 98.3 F 09/14/19 08:10 Pulse 84 09/14/19 08:10 Resp 18 09/14/19 08:10 BP 114/73 09/14/19 08:10 Pulse Ox 95 09/14/19 08:10 Intake & Output 09/13/19 09/14/19 09/14/19 18:59 06:59 18:59 Intake Total 180 Output Total 2400 650 Balance -2220 -650 Weight 111.9 kg Intake: Oral 180 Output: Urine 2400 650 Other: # Voids 1 # Bowel Movements 0 - Exam This is a pleasant 84-year-old male in no acute distress. He is alert and oriented 3. Exam of the left lower extremity is essentially unchanged today. He is unable to actively extend the knee. No erythema. Mild ecchymosis about the lateral aspect of the knee. Full foot and ankle motion without difficulty or pain. Neurovascular status to the lower extremity is intact. - Labs CBC & Chem 7: 09/14/19 05:40 09/14/19 05:40 Labs: Abnormal Lab Results - Last 24 Hours (Table) 09/14/19 09/14/19 Range/Units 05:40 05:40 WBC 11.5 H (3.8-10.6) k/uL RBC 2.66 L (4.30-5.90) m/uL Hgb 9.0 L D (13.0-17.5) gm/dL Hct 27.9 L (39.0-53.0) % MCV 104.8 H (80.0-100.0) fL BUN 29 H (9-20) mg/dL Glucose 113 H (74-99) mg/dL Assessment and Plan (1) Atrial fibrillation Current Visit: Yes Status: Acute Code(s): I48.91 - UNSPECIFIED ATRIAL FIB RILLATION SNOMED Code(s): 97696751 (2) Fall Current Visit: Yes Status: Acute Code(s): W19.XXXA - UNSPECIFIED FALL, INITIAL ENCOUNTER SNOMED Code(s): 6356037 (3) Left knee pain Current Visit: Yes Status: Acute Code(s): M25.562 - PAIN IN LEFT KNEE SNOMED Code(s): 34959853 (4) Leg wound, left Current Visit: Yes Status: Acute Code(s): S81.802A - UNSPECIFIED OPEN WOUND, LEFT LOWER LEG, INITIAL ENCOUNTER SNOMED Code(s): 682355701 (5) Atrial fibrillation with RVR Current Visit: No Status: Acute Code(s): I48.91 - UNSPECIFIED ATRIAL FIBRILLATION SNOMED Code(s): 718807858575687 (6) Quadriceps weakness Current Visit: Yes Status: Acute Code(s): M62.81 - MUSCLE WEAKNESS (GENERALIZED) SNOMED Code(s): 646548588 Plan: The clinical and ultrasound findings are discussed with the patient. There is no evidence of quadriceps rupture. The knee is aspirated today using sterile technique. There is no fluid in the knee. No specimen was sent. I will order a brace to assist with extension. He may bear weight as tolerated with walker and with the brace on.
[2019-09-14] MEDS ORDERED: FLUDROCORTISONE 0.1 MG TAB PO SCH (12:30)
--- NOTE | 2019-09-14 13:06 | PN ---
PROGRESS NOTE DATE OF SERVICE: 09/14/2019 REASON FOR FOLLOWUP: Bilateral lower extremity wound. INTERVAL HISTORY: The patient is currently afebrile. Patient has been breathing comfortably. Denies having any chest pain or cough. No abdominal pain. No pain to the legs. PHYSICAL EXAMINATION: Blood pressure 114/73 with a pulse of 84, temperature 98.3. He is 95% on room air. General description is an elderly male up in the chair in no distress. RESPIRATORY SYSTEM: Unlabored breathing. Decreased breath sounds in the bases. No wheeze. HEART: S1, S2. Regular rate and rhythm. ABDOMEN: Soft, no tenderness. Legs are current wrapped up. No obvious drainage on the dressing. LABS: Hemoglobin is 9 with white count 11.5. DIAGNOSTIC IMPRESSION AND PLAN: Patient with bilateral lower extremity wounds with no evidence of any secondary cellulitis. Local care to continue with dry Aquacel silver dressing and Tex wrap to keep the swelling down and evaluate the wound at the time of dressing changes. Continue with supportive care. MMODL / IJN: [id number] /
--- NOTE | 2019-09-14 13:56 | P.PN ---
Subjective Progress Note Date: 09/14/19 This is an 84-year-old male patient of Dr. Mosqueda with past medical history of paroxysmal atrial fibrillation status post cardiac ablation in 2007 as well as cardioversions a couple times since then, hypertension, osteoarthritis, obstructive sleep apnea but not currently on a CPAP, psoriasis, hard of hearing. Patient was treated in July at [facility] for heart failure and that that time also developed hematoma to the left hip. Patient was hospitalized on August 14 through August 25 at [facility] at which time he was treated for A. fib with RVR status post BRIAN and electrocardioversion, chronic lower extremity vascular ulcers and edema with cellulitis and acute on chronic systolic and diastolic heart failure. Patient had been started on midodrine due to hypotension. Patient was discharged to [facility] and patient states that he left the [facility] and has been home for 3 days. Patient has chronic weakness in his left lower extremity as well as pain in the left calf area due to wound. Patient apparently was in the shower had a mechanical fall twisting his left knee and was unable to bear weight following this. He has had a previous knee replacement on the left by Dr. Mcneal and a hip replacement by Dr. Starkey. Currently, patient denies any lightheadedness or dizziness, no shortness of breath, no palpitations. Patient came into [facility] emergency center for evaluation. He was afebrile, blood pressure 107/66, pulse ox 100% on room air, heart rate 66. WBC 9.4, hemoglobin 10.8, platelet count 191. Sodium 135, potassium 4.3, chloride 103, CO2 25, BUN 44 and creatinine 1.26, blood sugar 101, CK 176, C- reactive protein 48.5, proBNP 1920, cortisol level VIII. EKG was atrial fibrillation heart rate of 133 with no acute changes. Left knee, tib-fib, foot and ankle x-ray showed no acute fracture or dislocation. CAT scan of the left lower extremity shows no acute fracture or dislocation from the knee to the toes. Patient admitted to the [facility] floor and consults requested for Dr. Kilpatrick, orthopedics and cardiology. 09/13: Patient's heart rate remained elevated up to 138 and cardiology as increased metoprolol to 50 mg 3 times daily. playground monitor atrial fibrillation. Patient has been afebrile, blood pressure 114/73, pulse ox 95% on room air. Repeat blood work reveals Lisa BC 11.5, hemoglobin 9, BUN 29 creatinine 0.84. Regarding the left elbow, ultrasound did not show any evidence of quadriceps rupture. Orthopedics has done aspiration and there was no fluid in the knee. A brace has been ordered and patient may be weightbearing as tolerated with walker and brace. Solu-Cortef will be discontinued and patient started on Florinef. Objective - Vital Signs Vital signs: Vital Signs Temp 97.6 F 09/14/19 04:00 Pulse 122 H 09/14/19 04:00 Resp 18 09/14/19 04:00 BP 116/61 09/14/19 04:00 Pulse Ox 95 09/14/19 04:00 Intake & Output 09/13/19 09/14/19 09/14/19 18:59 06:59 18:59 Intake Total 180 Output Total 2400 650 Balance -2220 -650 Weight 111.9 kg Intake: Oral 180 Output: Urine 2400 650 Other: # Voids 1 # Bowel Movements 0 - Exam Review of Systems Constitutional: Reports fatigue, Reports weakness, Denies chills, Denies fever, Denies poor appetite Eyes: denies blurred vision, denies pain Ears, nose, mouth and throat: Denies dysphagia, Denies headache, Denies nasal congestion, Denies nasal discharge, Denies sore throat Cardiovascular: Reports leg edema, Denies chest pain, Denies dyspnea on exertion, Denies edema, Denies lightheadedness, Denies palpitations, Denies monster rtness of breath, Denies syncope Respiratory: Denies cough, Denies cough with sputum, Denies dyspnea, Denies excessive sputum, Denies hemoptysis, Denies home oxygen, Denies respiratory infections, Denies wheezing Gastrointestinal: Denies abdominal pain, Denies constipation, Denies diarrhea, Denies loss of appetite, Denies nausea, Denies vomiting Genitourinary: Denies dysuria Musculoskeletal: Reports muscle weakness, Denies myalgias Musculoskeletal: left: knee pain Integumentary: Reports lower extremity wounds, Denies pruritus, Denies rash Neurological: Denies change in mentation, Denies change in speech, Denies numbne ss, Denies seizures, Denies weakness Psychiatric: Denies anxiety, Denies depression Endocrine: Denies fatigue, Denies weight change Gen: This is an 84-year-old male. He is sitting up in bed and appears to be comfortable and in no acute distress. No respiratory distress is noted. HEENT: Head is atraumatic, normocephalic. Pupils equal, round. Sclerae is anicteric. NECK: Supple. No JVD. No lymphadenopathy. No thyromegaly. LUNGS: Clear to auscultation. No wheezes or rhonchi. No intercostal retractions. HEART: Irregularly irregular rate and rhythm. Systolic ejection murmur. ABDOMEN: Soft. Bowel sounds are present. No masses. No tenderness. EXTREMITIES: Trace bilateral pedal edema. No calf tenderness. Multiple lower extremity wounds much improved since last hospitalization. Please see nursing documentation and pictures for details. NEUROLOGICAL: Patient is awake, alert and oriented x3. Cranial nerves 2 through 12 are grossly intact. - Labs CBC & Chem 7: 09/14/19 05:40 09/14/19 05:40 Labs: Abnormal Lab Results - Last 24 Hours (Table) 09/14/19 09/14/19 Range/Units 05:40 05:40 WBC 11.5 H (3.8-10.6) k/uL RBC 2.66 L (4.30-5.90) m/uL Hgb 9.0 L D (13.0-17.5) gm/dL Hct 27.9 L (39.0-53.0) % MCV 104.8 H (80.0-100.0) fL BUN 29 H (9-20) mg/dL Glucose 113 H (74-99) mg/dL Assessment and Plan Plan: 1. Mechanical fall injuring left leg. Orthopedic consult appreciated. 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 X-ray of the pelvis was also ordered by orthopedics. 2. Chronic lower extremity vascular ulcers. Consult with Dr. Kilpatrick appreciated. Local wound care with Aquacel Ag dressing every 48 hours and Tex w rap for compression, left posterior leg wound Hydrofera Blue dressing not available, no need for systemic antibiotics. 3. Chronic persistent atrial fibrillation with episode of A. fib RVR. Continue Lopressor increased to 50 mg 3 times daily, eliquis 5 mg twice daily. 4. Chronic hypotension. Continue midodrine. Lisinopril on hold 5. Chronic systolic and diastolic heart failure. Continue Lasix 80 mg in the morning and 40 mg in the afternoon, Aldactone 25 mg daily, Lopressor 25 mg twice daily, lisinopril on hold due to hypotension. 5. Benign prostatic hypertrophy. Monitor for urinary retention. Continue Flomax 0.4 mg twice daily. 6. Hypothyroidism. Continue levothyroxine 25 g daily. 7. Adrenal insufficiency. Solu-cortef discontinued and patient started on Florinef with planned follow-up with Dr. Pereyra, hard metals hand engraver, as an outpatient.. 8. Chronic kidney disease stage II. Avoid nephrotoxic agents. 9. Anemia of chronic disease 10. Obstructive sleep apnea. Patient will need to use CPAP. 11. GI prophylaxis. Protonix. 12. DVT prophylaxis. Eliquis. Hospital admission for a minimum of 2 night stay. Discharge plan: To be determined. PT and OT evaluations. Impression and plan of care have been directed as dictated by the signing physician. Urmila Carey nurse practitioner acting as scribe for signing physician.
[2019-09-14] MEDS: FLUDROCORTISONE 0.1 MG TAB PO SCH (14:24)
[2019-09-14] MEDS: METOPROLOL TARTRATE 50 MG TAB PO SCH ×2 (16:00→21:05)
[2019-09-14] MEDS: DOCUSATE 100 MG CAP PO PRN (16:03)
[2019-09-14] MEDS: ACETAMINOPHEN TAB 500 MG TAB PO PRN (16:03)
[2019-09-14] MEDS: ASPIRIN 81 MG PO SCH (17:51)
[2019-09-14] MEDS: MELATONIN 3 MG TABLET PO SCH (21:05)
[2019-09-15] MEDS: MIDODRINE 5 MG TAB PO SCH ×3 (06:03→15:37)
[2019-09-15] MEDS: TAMSULOSIN 0.4 MG CAP.ER.24H PO SCH ×2 (06:03→18:18)
[2019-09-15] MEDS: PANTOPRAZOLE 40 MG TABLET PO SCH (06:03)
[2019-09-15] MEDS: SPIRONOLACTONE 25 MG TAB PO SCH (06:03)
[2019-09-15] MEDS: LEVOTHYROXINE 25 MCG TAB PO SCH (06:04)
[2019-09-15] MEDS: SODIUM CHLORIDE 0.9% 1,000 ML IV SCH (06:06)
[2019-09-15 07:05] LABS: HCT 26.1 % (39.0-53.0); HGB 8.5 gm/dL (13.0-17.5); MCH 34.2 pg (25.0-35.0); MCHC 32.5 g/dL (31.0-37.0); MCV 105.2 fL (80.0-100.0); Macrocytosis Moderate; Platelet Count 150 k/uL (150-450); RBC 2.48 m/uL (4.30-5.90); RDW 14.1 % (11.5-15.5); WBC 7.7 k/uL (3.8-10.6)
[2019-09-15 07:06] LABS: Calcium 8.1 mg/dL (8.4-10.2); Potassium 3.5 mmol/L (3.5-5.1)
[2019-09-15] MEDS: FLUDROCORTISONE 0.1 MG TAB PO SCH (09:35)
[2019-09-15] MEDS: METOPROLOL TARTRATE 50 MG TAB PO SCH ×3 (09:35→20:26)
[2019-09-15] MEDS: APIXABAN 5 MG TAB PO SCH ×2 (09:35→20:27)
[2019-09-15] MEDS: FUROSEMIDE 40 MG TAB PO SCH ×2 (09:35→15:37)
--- NOTE | 2019-09-15 10:57 | P.PN ---
Subjective Progress Note Date: 09/15/19 Principal diagnosis: Left knee pain. Quadricep dysfunction left knee. Multiple medical Comorbidities. This is an 84-year-old male with history of total left knee arthroplasty in the past. He is also had right knee and left hip replacement. He states that he has had a few falls recently. He was at [facility] for congestive heart failure the last couple of months and states that he did have a fall prior to that. He had a large hematoma to the posterior aspect of his thigh at that time. He went to [facility] for rehab after that admission. He states that he has been unable to extend the knee actively and his knee continues to give out on him. He had a recent fall prior to this admission and states that his knee gave out on him causing him to fall. 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 We are consulted for evaluation of the left knee. Ultrasound of the left knee was performed which showed no evidence of quadriceps rupture. In extension assist brace was ordered yesterday. The brace has not yet arrived. The patient has no new complaints or concerns today. Vital signs are stable. Objective - Vital Signs Vital signs: Vital Signs Temp 97.8 F 09/15/19 05:00 Pulse 212 H 09/15/19 05:00 Resp 18 09/15/19 05:00 BP 110/76 09/15/19 05:00 Pulse Ox 98 09/15/19 05:00 Intake & Output 09/14/19 09/15/19 09/15/19 18:59 06:59 18:59 Intake Total 240 1205 320 Output Total 550 450 Balance 240 655 -130 Weight 113.5 kg Intake: Intake, IV Titration 825 Amount Sodium Chloride 0.9% 1, 825 000 ml @ 75 mls/hr IV . [id number] [facility] Rx#:[id number] Oral 240 380 320 Output: Urine 550 450 Other: # Voids 0 1 1 # Bowel Movements 0 - Exam This is a pleasant 84-year-old male in no acute distress. He is alert and oriented 3. Exam of the left lower extremity is essentially unchanged today. He is unable to actively extend the knee. No erythema. Mild ecchymosis about the lateral aspect of the knee. Full foot and ankle motion without difficulty or pain. Neurovascular status to the lower extremity is intact. - Labs CBC & Chem 7: 09/15/19 05:57 09/15/19 05:57 Labs: Abnormal Lab Results - Last 24 Hours (Table) 09/15/19 09/15/19 Range/Units 05:57 05:57 RBC 2.48 L (4.30-5.90) m/uL Hgb 8.5 L (13.0-17.5) gm/dL Hct 26.1 L (39.0-53.0) % MCV 105.2 H (80.0-100.0) fL Chloride 108 H (98-107) mmol/L BUN 28 H (9-20) mg/dL Calcium 8.1 L (8.4-10.2) mg/dL Assessment and Plan (1) Atrial fibrillation Current Visit: Yes Status: Acute Code(s): I48.91 - UNSPECIFIED ATRIAL FIBRILLATION SNOMED Code(s): 03311664 (2) Fall Current Visit: Yes Status: Acute Code(s): W19.XXXA - UNSPECIFIED FALL, INITIAL ENCOUNTER SNOMED Code(s): 4047691 (3) Left knee pain Current Visit: Yes Status: Acute Code(s): M25.562 - PAIN IN LEFT KNEE SNOMED Code(s): 03433853 (4) Leg wound, left Current Visit: Yes Status: Acute Code(s): S81.802A - UNSPECIFIED OPEN WOUND, LEFT LOWER LEG, INITIAL ENCOUNTER SNOMED Code(s): 100399616 (5) Atrial fibrillation with RVR Current Visit: No Status: Acute Code(s): I48.91 - UNSPECIFIED ATRIAL F IBRILLATION SNOMED Code(s): 877306917959931 (6) Quadriceps weakness Current Visit: Yes Status: Acute Code(s): M62.81 - MUSCLE WEAKNESS (GENERALIZED) SNOMED Code(s): 236080734 Plan: The clinical and ultrasound findings are discussed with the patient and his . There is no evidence of quadriceps rupture. We are awaiting the brace. Physical therapy may get him up with the brace. At discharge he is to follow-up in our office in [address] Aragon.
[2019-09-15] MEDS: AMIODARONE 200 MG TAB PO SCH ×2 (11:56→20:27)
--- NOTE | 2019-09-15 12:27 | P.PN ---
Subjective Progress Note Date: 09/15/19 This is a pleasant 84-year-old male past medical history significant for chronic persistent atrial fibrillation on long-term anticoagulation status post cardioversion was successful for only one week, systolic heart failure and hypotension. He follows in the office with Dr. Martinez. We have been asked to see in consultation for hypotension. He presented to the emergency department after having a fall in the shower. On 08/19/2019 he underwent a BRIAN cardioversion that was initially successful however the states it only lasted for about one week. Most recent echocardiogram obtained in August 2019 revealed impaired LV systolic function with ejection fraction 40-45%. At the time of my examination this morning, patient overall was feeling well, his heart rate continues to be in the 120 to 130 range quite consistently, it did go up into the 170 range briefly after he was up to the bathroom through the night last night. Patient did complain of an episode of chest pressure with associated diaphoresis last night, he states that he had a productive cough following that the symptoms seemed to subside. Patient was on 25 mg of metoprolol 3 times a day this morning, we will increase that dose to 50 3 times a day to optimize his heart rate control. White blood cell count 11.5, hemoglobin 9.0, platelet count 157. Sodium 137, potassium 4.9, BUN 29, creatinine 0.8. 09/15/2019 Patient seen and examined this morning, pain in his legs seems to be improving quite a bit. His heart rate continues to be in the 120 to 1:30 range. We will add oral amiodarone to his medication regime. Blood pressure 120/60 with a heart rate [birth year]28/1927, 98% on room air. White blood cell count 7.7, hemoglobin 8.5, platelet count 150. Sodium 138, potassium 3.5, BUN 28 and creatinine 0.9 Objective - Vital Signs Vital signs: Vital Signs Temp 97.6 F 09/15/19 11:58 Pulse 133 H 09/15/19 11:58 Resp 16 09/15/19 11:58 BP 121/60 09/15/19 11:58 Pulse Ox 98 09/15/19 11:58 Intake & Output 09/14/19 09/15/19 09/15/19 18:59 06:59 18:59 Intake Total 240 1205 320 Output Total 550 450 Balance 240 655 -130 Weight 113.5 kg Intake: Intake, IV Titration 825 Amount Sodium Chloride 0.9% 1, 825 000 ml @ 75 mls/hr IV . [id number] [facility] Rx#:[id number] Oral 240 380 320 Output: Urine 550 450 Other: # Voids 0 1 1 # Bowel Movements 0 - Exam PHYSICAL EXAMINATION: HEENT: Head is atraumatic, normocephalic. Pupils equal, round. Neck is supple. There is no elevated jugular venous pressure. HEART EXAMINATION: Heart sounds irregularly irregular, S1 and S2 with a systolic ejection murmur at the left sternal border, tachycardia noted. CHEST EXAMINATION: Lungs are clear to auscultation and precussion. No chest wall tenderness is noted on palpation or with deep breathing. ABDOMEN: Soft, nontender. Bowel sounds are heard. No organomegaly noted. EXTREMITIES: 2+ peripheral pulses with trace lower extremity edema with Tex wraps in place bilaterally. NEUROLOGIC patient is awake, alert and oriented x3. - Labs CBC & Chem 7: 09/15/19 05:57 09/15/19 05:57 Labs: Abnormal Lab Results - Last 24 Hours (Table) 09/15/19 09/15/19 09/15/19 Range/Units 05:57 05:57 05:57 RBC 2.48 L (4.30-5.90) m/uL Hgb 8.5 L (13.0-17.5) gm/dL Hct 26.1 L (39.0-53.0) % MCV 105.2 H (80.0-100.0) fL Chloride 108 H (98-107) mmol/L BUN 28 H (9-20) mg/dL Calcium 8.1 L (8.4-10.2) mg/dL TSH 4.830 H (0.465-4.680) mIU/L Assessment and Plan Plan: Assessment and Plan: #1 Atrial fibrillation with rapid ventricular response, chronic persistent #2 Chronic systolic heart failure, ejection fraction 40-45%. Clinically e uvolemic. #3 History of hypotension maintained on midodrine #4 Valvular heart disease Plan We will add amiodarone 400 mg one tablet by mouth twice a day to the patient's medication regime. We will also replace the potassium. Obtain lytes BUN creatinine CBC in the morning. DNP note has been reviewed, I agree with a documented findings and plan of care. Patient was seen and examined.
[2019-09-15] MEDS: INSULIN ASPART (NovoLOG) 100 UNIT/ML VIAL SQ SCH ×3 (12:47→21:44)
[2019-09-15] MEDS: HYDROcodone/APAP 5-325MG 1 EACH TAB PO PRN ×2 (14:09→20:30)
[2019-09-15] MEDS: POTASSIUM CHLORIDE ER 20 MEQ TAB.ER PO SCH ×3 (14:11→18:18)
[2019-09-15] MEDS: DOCUSATE 100 MG CAP PO PRN ×2 (14:13→20:30)
--- NOTE | 2019-09-15 14:49 | P.PN ---
Subjective Progress Note Date: 09/15/19 This is an 84-year-old male patient of Dr. Mosqueda with past medical history of paroxysmal atrial fibrillation status post cardiac ablation in 2007 as well as cardioversions a couple times since then, hypertension, osteoarthritis, obstructive sleep apnea but not currently on a CPAP, psoriasis, hard of hearing. Patient was treated in July at [facility] for heart failure and that that time also developed hematoma to the left hip. Patient was hospitalized on August 14 through August 25 at [facility] at which time he was treated for A. fib with RVR status post BRIAN and electrocardioversion, chronic lower extremity vascular ulcers and edema with cellulitis and acute on chronic systolic and diastolic heart failure. Patient had been started on midodrine due to hypotension. Patient was discharged to [facility] and patient states that he left the [facility] and has been home for 3 days. Patient has chronic weakness in his left lower extremity as well as pain in the left calf area due to wound. Patient apparently was in the shower had a mechanical fall twisting his left knee and was unable to bear weight following this. He has had a previous knee replacement on the left by Dr. Mcneal and a hip replacement by Dr. Starkey. Currently, patient denies any lightheadedness or dizziness, no shortness of breath, no palpitations. Patient came into [facility] emergency center for evaluation. He was afebrile, blood pressure 107/66, pulse ox 100% on room air, heart rate 66. WBC 9.4, hemoglobin 10.8, platelet count 191. Sodium 135, potassium 4.3, chloride 103, CO2 25, BUN 44 and creatinine 1.26, blood sugar 101, CK 176, C- reactive protein 48.5, proBNP 1920, cortisol level VIII. EKG was atrial fibrillation heart rate of 133 with no acute changes. Left knee, tib-fib, foot and ankle x-ray showed no acute fracture or dislocation. CAT scan of the left lower extremity shows no acute fracture or dislocation from the knee to the toes. Patient admitted to the [facility] floor and consults requested for Dr. Kilpatrick, orthopedics and cardiology. 09/13: Patient's heart rate remained elevated up to 138 and cardiology as increased metoprolol to 50 mg 3 times daily. 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 Patient has been afebrile, blood pressure 114/73, pulse ox 95% on room air. Repeat blood work reveals Lisa BC 11.5, hemoglobin 9, BUN 29 creatinine 0.84. Regarding the left elbow, ultrasound did not show any evidence of quadriceps rupture. Orthopedics has done aspiration and there was no fluid in the knee. A brace has been ordered and patient may be weightbearing as tolerated with walker and brace. Solu-Cortef will be discontinued and patient started on Florinef. 09/14: Patient is afebrile, heart rate has been running in the low 100s this morning 120s, blood pressure 110/76, pulse ox 98% on room air. This morning, patient has been started on amiodarone 400 mg twice daily by cardiology. Patient remains on Lopressor 50 mg 3 times daily as well as eliquis. Patient denies any symptoms. He states he did have some shortness of breath last evening. Blood pressure is improved with Florinef. He is planning for local wound care today and ambulate with physical therapy. Lower extremity edema is improving. Objective - Vital Signs Vital signs: Vital Signs Temp 97.8 F 09/15/19 05:00 Pulse 212 H 09/15/19 05:00 Resp 18 09/15/19 05:00 BP 110/76 09/15/19 05:00 Pulse Ox 98 09/15/19 05:00 Intake & Output 09/14/19 09/15/19 09/15/19 18:59 06:59 18:59 Intake Total 240 1205 320 Output Total 550 450 Balance 240 655 -130 Weight 113.5 kg Intake: Intake, IV Titration 825 Amount Sodium Chloride 0.9% 1, 825 000 ml @ 75 mls/hr IV . [id number] ON LICENSE OF [facility] Rx#:[id number] Oral 240 380 320 Output: Urine 550 450 Other: # Voids 0 1 1 # Bowel Movements 0 - Exam Review of Systems Constitutional: Reports fatigue, Reports weakness, Denies chills, Denies fever, Denies poor appetite Eyes: denies blurred vision, denies pain Ears, nose, mouth and throat: Denies dysphagia, Denies headache, Denies nasal congestion, Denies nasal discharge, Denies sore throat Cardiovascular: Reports leg edema improving, Denies chest pain, Denies dyspnea on exertion, Denies edema, Denies lightheadedness, Denies palpitations, Denies shortness of breath, Denies syncope Respiratory: Denies cough, Denies cough with sputum, Denies dyspnea, Denies excessive sputum, Denies hemoptysis, Denies home oxygen, Denies respiratory infections, Denies wheezing Gastrointestinal: Denies abdominal pain, Denies constipation, Denies diarrhea, Denies loss of appetite, Denies nausea, Denies vomiting Genitourinary: Denies dysuria Musculoskeletal: Reports muscle weakness, Denies myalgias Musculoskeletal: left: knee pain Integumentary: Reports lower extremity wounds, Denies pruritus, Denies rash Neurological: Denies change in mentation, Denies change in speech, Denies numbness, Denies seizures, Denies weakness Psychiatric: Denies anxiety, Denies depression Endocrine: Denies fatigue, Denies weight change Gen: This is an 84-year-old male. He is sitting up in bed and appears to be comfortable and in no acute distress. No respiratory distress is noted. HEENT: Head is atraumatic, normocephalic. Pupils equal, round. Sclerae is anicteric. NECK: Supple. No JVD. No lymphadenopathy. No thyromegaly. LUNGS: Clear to auscultation. No wheezes or rhonchi. No intercostal retractions. HEART: Irregularly irregular rate and rhythm. Systolic ejection murmur. ABDOMEN: Soft. Bowel sounds are present. No masses. No tenderness. EXTREMITIES: Trace bilateral pedal edema. No calf tenderness. Multiple lower extremity wounds. NEUROLOGICAL: Patient is awake, alert and oriented x3. Cranial nerves 2 through 12 are grossly intact. - Labs CBC & Chem 7: 09/15/19 05:57 09/15/19 05:57 Labs: Abnormal Lab Results - Last 24 Hours (Table) 09/15/19 09/15/19 Range/Units 05:57 05:57 RBC 2.48 L (4.30-5.90) m/uL Hgb 8.5 L (13.0-17.5) gm/dL Hct 26.1 L (39.0-53.0) % MCV 105.2 H (80.0-100.0) fL Chloride 108 H (98-107) mmol/L BUN 28 H (9-20) mg/dL Calcium 8.1 L (8.4-10.2) mg/dL Assessment and Plan Plan: 1. Mechanical fall injuring left leg. Orthopedic consult appreciated. 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 X-ray of the pelvis was also ordered by orthopedics. 2. Chronic lower extremity vascular ulcers. Consult with Dr. Kilpatrick appreciated. Local wound care with Aquacel Ag dressing every 48 hours and Tex wrap for compression, left posterior leg wound Hydrofera Blue dressing not available, no need for systemic antibiotics. 3. Chronic persistent atrial fibrillation with A. fib RVR. Continue Lopressor 50 mg 3 times daily, amiodarone 400 mg twice daily added today by cardiology, continue eliquis 5 mg twice daily. 4. Chronic hypotension. Continue midodrine. Lisinopril on hold 5. Chronic systolic and diastolic heart failure. Continue Lasix 80 mg in the morning and 40 mg in the afternoon, Aldactone 25 mg daily, Lopressor 25 mg twice daily, lisinopril on hold due to hypotension. 5. Benign prostatic hypertrophy. Monitor for urinary retention. Continue Flomax 0.4 mg twice daily. 6. Hypothyroidism. Continue levothyroxine 25 g daily. 7. Adrenal insufficiency. Solu-cortef discontinued and patient started on Florinef with planned follow-up with Dr. Pereyra, ice cream vault worker, as an outpatient.. 8. Chronic kidney disease stage II. Avoid nephrotoxic agents. 9. Anemia of chronic disease. 10. Obstructive sleep apnea. Patient will need to use CPAP. 11. GI prophylaxis. Protonix. 12. DVT prophylaxis. Eliquis. Discharge plan: Home with [facility]. PT and OT evaluations. Impression and plan of care have been directed as dictated by the signing physician. Urmila Carey nurse practitioner acting as scribe for signing physician.
[2019-09-15] MEDS: ASPIRIN 81 MG PO SCH (18:18)
[2019-09-15] MEDS: MELATONIN 3 MG TABLET PO SCH (20:26)
[2019-09-15 21:13] LABS: Glucose,Whole Blood 106 mg/dL (75-99)
--- NOTE | 2019-09-15 23:41 | PN ---
PROGRESS NOTE DATE OF SERVICE: 09/15/2019 REASON FOR FOLLOWUP: Bilateral lower extremity wound. INTERVAL HISTORY: The patient is currently afebrile. He has been breathing comfortably. Denies having any chest pain, shortness of breath or cough. No abdominal pain. No lower extremity. PHYSICAL EXAMINATION: Blood pressure is 114/56, pulse of 131, temperature 97.1, he is 97% on room air. General description is an an elderly male up in the chair in no distress. Respiratory system: Unlabored breathing. Clear to auscultation anteriorly. Heart S1, S2. Regular rate and rhythm. Abdomen soft, no tenderness. LABS: Hemoglobin 8.5, white count 7.7, BUN of 28, creatinine 0.94. DIAGNOSTIC IMPRESSION AND PLAN: Patient with bilateral lower extremity wound. No evidence of any cellulitis. PLAN: Continue local wound care with dry Aquacel Silver dressing and ( ). No need for systemic antibiotic therapy. Continue supportive care. MMODL / IJN: [id number] /
[2019-09-16] MEDS: MIDODRINE 5 MG TAB PO SCH ×3 (05:27→16:32)
[2019-09-16] MEDS: TAMSULOSIN 0.4 MG CAP.ER.24H PO SCH ×2 (05:28→16:32)
[2019-09-16] MEDS: SPIRONOLACTONE 25 MG TAB PO SCH (05:28)
[2019-09-16] MEDS: PANTOPRAZOLE 40 MG TABLET PO SCH (05:28)
[2019-09-16] MEDS: LEVOTHYROXINE 25 MCG TAB PO SCH (05:28)
[2019-09-16 06:11] LABS: Glucose,Whole Blood 95 mg/dL (75-99)
[2019-09-16] MEDS: INSULIN ASPART (NovoLOG) 100 UNIT/ML VIAL SQ SCH ×4 (06:21→20:50)
[2019-09-16 06:33] LABS: HCT 28.8 % (39.0-53.0); HGB 9.2 gm/dL (13.0-17.5); MCH 33.6 pg (25.0-35.0); MCHC 31.9 g/dL (31.0-37.0); MCV 105.5 fL (80.0-100.0); Macrocytosis Moderate; Mean Platelet Volume 8.1; Platelet Count 184 k/uL (150-450); RBC 2.73 m/uL (4.30-5.90); WBC 8.9 k/uL (3.8-10.6)
[2019-09-16 06:44] LABS: Calcium 8.4 mg/dL (8.4-10.2); Potassium 4.4 mmol/L (3.5-5.1)
[2019-09-16] MEDS: FUROSEMIDE 40 MG TAB PO SCH ×2 (08:16→16:32)
[2019-09-16] MEDS: APIXABAN 5 MG TAB PO SCH ×2 (08:16→20:03)
[2019-09-16] MEDS: METOPROLOL TARTRATE 50 MG TAB PO SCH ×3 (08:16→20:02)
[2019-09-16] MEDS: FLUDROCORTISONE 0.1 MG TAB PO SCH (08:16)
[2019-09-16] MEDS: AMIODARONE 200 MG TAB PO SCH ×2 (08:16→20:02)
--- NOTE | 2019-09-16 09:58 | XR ---
EXAMINATION TYPE: XR chest 2V DATE OF EXAM: 09/16/2019 COMPARISON: 08/14/2019 chest x-ray and CT chest dated 06/23/2019 HISTORY: Shortness of breath TECHNIQUE: Frontal and lateral views of the chest are obtained. FINDINGS: There is no focal air space opacity, pleural effusion, or pneumothorax seen. The cardiac silhouette size is again enlarged with tortuosity of the ascending and descending thoracic aorta. At least moderate degenerative changes of the shoulders. Mild multilevel degenerative change of the spin e. Pulmonary hyperinflation on the lateral view with flattening of the diaphragms suggesting underlyi ng COPD. Subcentimeter pulmonary nodule seen on the prior CT are not well delineated on x-ray. IMPRESSION: 1. Persistently enlarged cardiomediastinal silhouette and tortuosity of both the ascending and desce nding thoracic aorta. Echocardiogram could assess for pulmonary function and CT could assess for stab ility of the known thoracic aneurysm. 2. Lateral view findings also suggest underlying COPD. 3. The subcentimeter pulmonary nodule seen on the prior CT of 06/23/2019 are not well visualized radi ographically. These could be reassessed for stability with CT thorax.
[2019-09-16] MEDS ORDERED: FUROSEMIDE 10 MG/ML 4 ML VIAL IV STA (11:35)
[2019-09-16 12:08] LABS: Glucose,Whole Blood 114 mg/dL (75-99)
[2019-09-16] MEDS: DOCUSATE 100 MG CAP PO PRN (13:00)
--- NOTE | 2019-09-16 14:38 | P.PN ---
Subjective Progress Note Date: 09/16/19 This is a pleasant 84-year-old male past medical history significant for chronic persistent atrial fibrillation on long-term anticoagulation status post cardioversion was successful for only one week, systolic heart failure and hypotension. He follows in the office with Dr. Martinez. We have been asked to see in consultation for hypotension. He presented to the emergency department after having a fall in the shower. On 08/19/2019 he underwent a BRIAN cardioversion that was initially successful however the states it only lasted for about one week. Most recent echocardiogram obtained in August 2019 revealed impaired LV systolic function with ejection fraction 40-45%. At the time of my examination this morning, patient overall was feeling well, his heart rate continues to be in the 120 to 130 range quite consistently, it did go up into the 170 range briefly after he was up to the bathroom through the night last night. Patient did complain of an episode of chest pressure with associated diaphoresis last night, he states that he had a productive cough following that the symptoms seemed to subside. Patient was on 25 mg of metoprolol 3 times a day this morning, we will increase that dose to 50 3 times a day to optimize his heart rate control. White blood cell count 11.5, hemoglobin 9.0, platelet count 157. Sodium 137, potassium 4.9, BUN 29, creatinine 0.8. 09/15/2019 Patient seen and examined this morning, pain in his legs seems to be improving quite a bit. His heart rate continues to be in the 120 to 1:30 range. We will add oral amiodarone to his medication regime. Blood pressure 120/60 with a heart rate 07/28/1927, 98% on room air. White blood cell count 7.7, hemoglobin 8.5, platelet count 150. Sodium 138, potassium 3.5, BUN 28 and creatinine 0.9 09/16/2019 Patient was seen and examined this morning, he was initiated on amiodarone and at present his heart rate is still in the 120 range but it is noticed that the patient's heart rate does drop to 100- 104 on occasion. On examination, the patient does sound more wheezy today, is complaining of a mild hacky cough today. Repeat chest x-ray has been requested for today, we will also give the patient one time dose of 40 mg of IV Lasix. Objective - Vital Signs Vital signs: Vital Signs Temp 98 F 09/16/19 12:00 Pulse 113 H 09/16/19 12:00 Resp 16 09/16/19 12:00 BP 114/58 09/16/19 12:00 Pulse Ox 99 09/16/19 12:00 Intake & Output 09/15/19 09/16/19 09/16/19 18:59 06:59 18:59 Intake Total 560 240 240 Output Total 700 1400 300 Balance -140 -1160 -60 Weight 114.1 kg Intake: Oral 560 240 240 Output: Urine 700 1400 300 Other: # Voids 1 1 - Exam PHYSICAL EXAMINATION: HEENT: Head is atraumatic, normocephalic. Pupils equal, round. Neck is supple. There is no elevated jugular venous pressure. HEART EXAMINATION: Heart sounds irregularly irregular, S1 and S2 with a systolic ejection murmur at the left sternal border, tachycardia noted. CHEST EXAMINATION: Lungs reveal fine scattered wheezing throughout . No chest wall tenderness is noted on palpation or with deep breathing. ABDOMEN: Soft, nontender. Bowel sounds are heard. No organomegaly noted. EXTREMITIES: 2+ peripheral pulses with trace lower extremity edema with Tex wraps in place bilaterally. NEUROLOGIC patient is awake, alert and oriented x3. - Labs CBC & Chem 7: 09/16/19 06:15 09/16/19 06:15 Labs: Abnormal Lab Results - Last 24 Hours (Table) 09/15/19 09/16/19 09/16/19 Range/Units 20:45 06:15 06:15 RBC 2.73 L (4.30-5.90) m/uL Hgb 9.2 L (13.0-17.5) gm/dL Hct 28.8 L (39.0-53.0) % MCV 105.5 H (80.0-100.0) fL BUN 23 H (9-20) mg/dL Glucose 101 H (74-99) mg/dL POC Glucose (mg/dL) 106 H (75-99) mg/dL 09/16/19 Range/Units 12:07 RBC (4.30-5.90) m/uL Hgb (13.0-17.5) gm/dL Hct (39.0-53.0) % MCV (80.0-100.0) fL BUN (9-20) mg/dL Glucose (74-99) mg/dL POC Glucose (mg/dL) 114 H (75-99) mg/dL Assessment and Plan Plan: Assessment and Plan: #1 Atrial fibrillation with rapid ventricular response, chronic persistent #2 Chronic systolic heart failure, ejection fraction 40-45%. Clinically euvolemic. #3 History of hypotension maintained on midodrine #4 Valvular heart disease Plan We will request a repeat chest x-ray today. Give the patient one time dose of 40 mg IV Lasix. Continue to monitor the heart rate. DNP note has been reviewed, I agree with a documented findings and plan of care. Patient was seen and examined.
[2019-09-16] MEDS ORDERED: MAGNESIUM HYDROXIDE 2,400 MG/10 ML CUP PO PRN (14:41)
--- NOTE | 2019-09-16 14:45 | P.PN ---
Subjective Progress Note Date: 09/16/19 This is an 84-year-old male patient of Dr. Mosqueda with past medical history of paroxysmal atrial fibrillation status post cardiac ablation in 2007 as well as cardioversions a couple times since then, hypertension, osteoarthritis, obstructive sleep apnea but not currently on a CPAP, psoriasis, hard of hearing. Patient was treated in July at [facility] for heart failure and that that time also developed hematoma to the left hip. Patient was hospitalized on August 14 through August 25 at [facility] at which time he was treated for A. fib with RVR status post BRIAN and electrocardioversion, chronic lower extremity vascular ulcers and edema with cellulitis and acute on chronic systolic and diastolic heart failure. Patient had been started on midodrine due to hypotension. Patient was discharged to [facility] and patient states that he left the [facility] and has been home for 3 days. Patient has chronic weakness in his left lower extremity as well as pain in the left calf area due to wound. Patient apparently was in the shower had a mechanical fall twisting his left knee and was unable to bear weight following this. He has had a previous knee replacement on the left by Dr. Mcneal and a hip replacement by Dr. Starkey. Currently, patient denies any lightheadedness or dizziness, no shortness of breath, no palpitations. Patient came into [facility] emergency center for evaluation. He was afebrile, blood pressure 107/66, pulse ox 100% on room air, heart rate 66. WBC 9.4, hemoglobin 10.8, platelet count 191. Sodium 135, potassium 4.3, chloride 103, CO2 25, BUN 44 and creatinine 1.26, blood sugar 101, CK 176, C- reactive protein 48.5, proBNP 1920, cortisol level VIII. EKG was atrial fibrillation heart rate of 133 with no acute changes. Left knee, tib-fib, foot and ankle x-ray showed no acute fracture or dislocation. CAT scan of the left lower extremity shows no acute fracture or dislocation from the knee to the toes. Patient admitted to the [facility] floor and consults requested for Dr. Kilpatrick, orthopedics and cardiology. 09/13: Patient's heart rate remained elevated up to 138 and cardiology as increased metoprolol to 50 mg 3 times daily. satellite project site monitor atrial fibri llation. Patient has been afebrile, blood pressure 114/73, pulse ox 95% on room air. Repeat blood work reveals Lisa BC 11.5, hemoglobin 9, BUN 29 creatinine 0.84. Regarding the left elbow, ultrasound did not show any evidence of quadriceps rupture. Orthopedics has done aspiration and there was no fluid in the knee. A brace has been ordered and patient may be weightbearing as tolerated with walker and brace. Solu-Cortef will be discontinued and patient started on Florinef. 09/14: Patient is afebrile, heart rate has been running in the low 100s this morning 120s, blood pressure 110/76, pulse ox 98% on room air. This morning, patient has been started on amiodarone 400 mg twice daily by cardiology. Patient remains on Lopressor 50 mg 3 times daily as well as eliquis. Patient denies any symptoms. He states he did have some shortness of breath last evening. Blood pressure is improved with Florinef. He is planning for local wound care today and ambulate with physical therapy. Lower extremity edema is improving. 09/15: Patient remains in A. fib RVR with heart rates up to 120s but improving.. Blood pressure 134/74, pulse ox 97% on room air, afebrile. Hemoglobin 9.2, BUN 23 and creatinine 0.99, electrolytes normal. Blood sugar 101. Chest x-ray reveals persistently enlarged cardiomediastinal silhouette and tortuosity of both the ascending and descending thoracic aorta. Pulmonary nodule not well visualized. Patient received 1 dose of Lasix 40 mg today. Patient states that he was up coughing all night. He is complaining of right lateral rib pain secondary to coughing. states that he has not had a bowel movement since Saturday. Senna has been changed to scheduled and milk of magnesia and then as needed Objective - Vital Signs Vital signs: Vital Signs Temp 98.4 F 09/16/19 08:00 Pulse 125 H 09/16/19 08:00 Resp 16 09/16/19 08:00 BP 134/74 09/16/19 08:00 Pulse Ox 97 09/16/19 08:00 Intake & Output 09/15/19 09/16/19 09/16/19 18:59 06:59 18:59 Intake Total 560 240 240 Output Total 700 1400 Balance -140 -1160 240 Weight 114.1 kg Intake: Oral 560 240 240 Output: Urine 700 1400 Other: # Voids 1 - Exam Review of Systems Constitutional: Reports fatigue, Reports weakness, Denies chills, Denies fever, Denies poor appetite Eyes: denies blurred vision, denies pain Ears, nose, mouth and throat: Denies dysphagia, Denies headache, Denies nasal congestion, Denies nasal discharge, Denies sore throat Cardiovascular: Reports leg edema increasing, Denies chest pain, Denies dyspnea on exertion, Denies edema, Denies lightheadedness, Denies palpitations, Denies shortness of breath, Denies syncope Respiratory: Reports cough, Denies cough with sputum, Denies dyspnea, Denies excessive sputum, Denies hemoptysis, Denies home oxygen, Denies respiratory infections, Denies wheezing Gastrointestinal: Denies abdominal pain, Denies constipation, Denies diarrhea, Denies loss of appetite, Denies nausea, Denies vomiting Genitourinary: Denies dysuria Musculoskeletal: Reports muscle weakness, Denies myalgias Musculoskeletal: left: knee pain Integumentary: Reports lower extremity wounds, Denies pruritus, Denies rash Neurological: Denies change in mentation, Denies change in speech, Denies numbness, Denies seizures, Denies weakness Psychiatric: Denies anxiety, Denies depression Endocrine: Denies fatigue, Denies weight change Gen: This is an 84-year-old male. He is sitting up in chair and appears to be comfortable and in no acute distress. No respiratory distress is noted. HEENT: Head is atraumatic, normocephalic. Pupils equal, round. Sclerae is anicteric. NECK: Supple. No JVD. No lymphadenopathy. No thyromegaly. LUNGS: Clear to auscultation. No wheezes or rhonchi. No intercostal retractions. HEART: Irregularly irregular rate and rhythm. Systolic ejection murmur. ABDOMEN: Soft. Bowel sounds are present. No masses. No tenderness. EXTREMITIES: Trace bilateral pedal edema but no involving thighs as well. No calf tenderness. Multiple lower extremity wounds. NEUROLOGICAL: Patient is awake, alert and oriented x3. Cranial nerves 2 through 12 are grossly intact. - Labs CBC & Chem 7: 09/16/19 06:15 09/16/19 06:15 Labs: Abnormal Lab Results - Last 24 Hours (Table) 09/15/19 09/15/19 09/16/19 Range/Units 05:57 20:45 06:15 RBC 2.73 L (4.30-5.90) m/uL Hgb 9.2 L (13.0-17.5) gm/dL Hct 28.8 L (39.0-53.0) % MCV 105.5 H (80.0-100.0) fL BUN (9-20) mg/dL Glucose (74-99) mg/dL POC Glucose (mg/dL) 106 H (75-99) mg/dL TSH 4.830 H (0.465-4.680) mIU/L 09/16/19 Range/Units 06:15 RBC (4.30-5.90) m/uL Hgb (13.0-17.5) gm/dL Hct (39.0-53.0) % MCV (80.0-100.0) fL BUN 23 H (9-20) mg/dL Glucose 101 H (74-99) mg/dL POC Glucose (mg/dL) (75-99) mg/dL TSH (0.465-4.680) mIU/L Assessment and Plan Plan: 1. Mechanical fall injuring left leg. Orthopedic consult appreciated. 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 X-ray of the pelvis was also ordered by orthopedics, negative for fracture. 2. Chronic lower extremity vascular ulcers. Consult with Dr. Kilpatrick roc reciated. Local wound care with Aquacel Ag dressing every 48 hours and Tex wrap for compression, left posterior leg wound Hydrofera Blue dressing not available, no need for systemic antibiotics. Lasix 40 mg 1. 3. Chronic persistent atrial fibrillation with A. fib RVR. Continue Lopressor 50 mg 3 times daily, amiodarone 400 mg twice daily, eliquis 5 mg twice daily. 4. Chronic hypotension. Continue midodrine. Lisinopril on hold 5. Chronic systolic and diastolic heart failure. Continue Lasix 40 mg twice daily, Aldactone 25 mg daily, Lopressor 50 mg 3 times daily, lisinopril on hold due to hypotension. 5. Benign prostatic hypertrophy. Monitor for urinary retention. Continue Fl omax 0.4 mg twice daily. 6. Hypothyroidism. Continue levothyroxine 25 g daily. 7. Adrenal insufficiency. Solu-cortef discontinued and patient started on Florinef with planned follow-up with Dr. Pereyra, geophysical prospector, as an outpatient. Florinef will be discontinued due to concern of increased edema to the thighs. 8. Chronic kidney disease stage II. Avoid nephrotoxic agents. 9. Anemia of chronic disease. 10. Obstructive sleep apnea. Patient will need to use CPAP. 11. GI prophylaxis. Protonix. 12. DVT prophylaxis. Eliquis. Discharge plan: Home with [facility]. PT and OT evaluations. Impression and plan of care have been directed as dictated by the signing physi cian. Urmila Carey nurse practitioner acting as scribe for signing physician.
[2019-09-16 16:27] LABS: Glucose,Whole Blood 120 mg/dL (75-99)
[2019-09-16] MEDS: ASPIRIN 81 MG PO SCH (16:32)
--- NOTE | 2019-09-16 16:34 | PN ---
PROGRESS NOTE DATE OF SERVICE: 09/16/2019. REASON FOR FOLLOWUP: Bilateral lower extremity wound. INTERVAL HISTORY: The patient is currently afebrile, has been breathing comfortably. Patient denies having any chest pain. Occasional cough. No abdominal pain or pain to the lower extremity. PHYSICAL EXAMINATION: His blood pressure is 114/58 with a pulse of 113, temperature 98. He is 99% on room air. General description is an elderly male up in the chair in no distress. Respiratory system: Unlabored breathing. Decreased breath sounds at the bases. No wheeze. Heart S1, S2. Regular rate and rhythm. Abdomen soft, no tenderness. Legs are currently wrapped up. No obvious drainage on the dressing. LABS: Hemoglobin 9.4, white count 8.9. Creatinine 0.99. DIAGNOSTIC IMPRESSION AND PLAN: Patient with bilateral lower extremity wounds with no evidence of any cellulitis. Local wound care to continue with Aquacel silver dressing, wound to be evaluated tomorrow to monitor for dressing changes. No need for any systemic antibiotic therapy. MMODL / IJN: [id number] /
[2019-09-16] MEDS: MELATONIN 3 MG TABLET PO SCH (20:02)
[2019-09-16] MEDS: ACETAMINOPHEN TAB 500 MG TAB PO PRN (20:02)
[2019-09-16] MEDS: BENZONATATE 100 MG CAP PO PRN (20:02)
[2019-09-16 20:48] LABS: Glucose,Whole Blood 106 mg/dL (75-99)
[2019-09-17 05:50] LABS: Glucose,Whole Blood 114 mg/dL (75-99)
[2019-09-17] MEDS: INSULIN ASPART (NovoLOG) 100 UNIT/ML VIAL SQ SCH ×4 (05:59→20:11)
[2019-09-17] MEDS: TAMSULOSIN 0.4 MG CAP.ER.24H PO SCH ×2 (06:22→17:45)
[2019-09-17] MEDS: PANTOPRAZOLE 40 MG TABLET PO SCH (06:22)
[2019-09-17] MEDS: MIDODRINE 5 MG TAB PO SCH ×3 (06:22→17:45)
[2019-09-17] MEDS: LEVOTHYROXINE 25 MCG TAB PO SCH (06:22)
[2019-09-17] MEDS: SPIRONOLACTONE 25 MG TAB PO SCH (06:22)
[2019-09-17] MEDS: BENZONATATE 100 MG CAP PO PRN ×2 (08:36→20:10)
[2019-09-17] MEDS: SENNOSIDES-DOCUSATE SODIUM 1 EACH TAB PO SCH (08:37)
[2019-09-17] MEDS: METOPROLOL TARTRATE 50 MG TAB PO SCH ×3 (08:37→20:11)
[2019-09-17] MEDS: AMIODARONE 200 MG TAB PO SCH ×2 (08:37→20:10)
[2019-09-17] MEDS: FUROSEMIDE 40 MG TAB PO SCH ×2 (08:37→17:45)
[2019-09-17] MEDS: APIXABAN 5 MG TAB PO SCH ×2 (08:38→20:11)
--- NOTE | 2019-09-17 09:41 | XR ---
EXAMINATION TYPE: XR chest 1V DATE OF EXAM: 09/17/2019 COMPARISON: 09/16/2019 HISTORY: Follow-up for congestion and possible pneumonia. TECHNIQUE: Single frontal view of the chest is obtained. FINDINGS: Redemonstration of an enlarged cardiomediastinal silhouette is discussed on the prior in t his patient with known thoracic aneurysm. One of the nodules in the right lung seen on the prior CT o f 06/23/2019 is visualized. The remaining subcentimeter nodules are not identified on x-ray. Diffuse osseous mineralization and degenerative changes of the shoulders and spine are redemonstrated. No foc al consolidation, pleural effusion or pneumothorax. IMPRESSION: No focal consolidation. Redemonstration of an enlarged cardiac mediastinal: This patient with known thoracic aortic aneurysm one of the known pulmonary nodules.
[2019-09-17 10:16] LABS: Basophils % (A) 0 %; Eosinophils # (A) 0.1 k/uL (0-0.7); Eosinophils % (A) 1 %; HCT 26.6 % (39.0-53.0); HGB 8.7 gm/dL (13.0-17.5); Lymphocytes # (A) 0.5 k/uL (1.0-4.8); Lymphocytes % (A) 8 %; MCH 33.9 pg (25.0-35.0); MCHC 32.6 g/dL (31.0-37.0); MCV 103.9 fL (80.0-100.0); Macrocytosis Slight; Mean Platelet Volume 7.7; Monocytes # (A) 0.2 k/uL (0-1.0); Monocytes % (A) 4 %; Neutrophils # (A) 5.8 k/uL (1.3-7.7); Neutrophils % (A) 86 %; Platelet Count 176 k/uL (150-450); RBC 2.56 m/uL (4.30-5.90); RDW 14.2 % (11.5-15.5); WBC 6.7 k/uL (3.8-10.6)
[2019-09-17 10:31] LABS: Calcium 8.5 mg/dL (8.4-10.2); Magnesium 1.8 mg/dL (1.6-2.3); Potassium 3.9 mmol/L (3.5-5.1)
[2019-09-17 12:03] LABS: Glucose,Whole Blood 131 mg/dL (75-99)
[2019-09-17] MEDS: OSELTAMIVIR 75 MG CAP PO SCH ×2 (13:10→20:20)
[2019-09-17] MEDS ORDERED: IPRATROPIUM 0.5 MG/2.5 ML NEBU INHALATION PRN (13:22)
--- NOTE | 2019-09-17 15:22 | PN ---
PROGRESS NOTE Mr. Irizarry is an 84-year-old male with a history of chronic persistent atrial fibrillation who had been having episodes of rapid ventricular response. He continues to have a cough and he was found to have influenza A. He denies any chest pain but he continues to be dyspneic. His legs feel better. He denies any dizziness or palpitations. He denies any nausea. He continues to be in atrial fibrillation with rapid ventricular response, although slightly better. He continues to be on amiodarone 400 mg twice a day, Eliquis 5 mg twice a day, aspirin 81 mg daily, furosemide 40 mg twice a day, metoprolol tartrate 50 mg three times a day, and spironolactone 25 mg daily. PHYSICAL EXAMINATION: Blood pressure 115/60 with a heart rate in the 100s, temperature 100.2. LUNGS: Few crackles bilaterally. HEART: Irregularly irregular. S1, S2. No S3. Systolic murmur. No diastolic murmur. No rub. ABDOMEN: Soft, nontender. EXTREMITIES: With Tex wrapping in place. IMPRESSION: 1. Atrial fibrillation with rapid ventricular response. 2. Cough with influenza A. 3. History of moderate cardiomyopathy. 4. History of valvular disease. RECOMMENDATION: From the cardiac standpoint, we will continue present therapy. Continue to monitor his heart rate. The patient may be a candidate down the road to either have repeat cardioversion or consider AV dakotah ablation and permanent pacemaker implantation. JAJA / NADINE: [id number] /
--- NOTE | 2019-09-17 16:32 | P.PN ---
Subjective Progress Note Date: 09/17/19 This is an 84-year-old male patient of Dr. Mosqueda with past medical history of paroxysmal atrial fibrillation status post cardiac ablation in 2007 as well as cardioversions a couple times since then, hypertension, osteoarthritis, obstructive sleep apnea but not currently on a CPAP, psoriasis, hard of hearing. Patient was treated in July at [facility] for heart failure and that that time also developed hematoma to the left hip. Patient was hospitalized on August 14 through August 25 at [facility] at which time he was treated for A. fib with RVR status post BRIAN and electrocardioversion, chronic lower extremity vascular ulcers and edema with cellulitis and acute on chronic systolic and diastolic heart failure. Patient had been started on midodrine due to hypotension. Patient was discharged to [facility] and patient states that he left the longterm and has been home for 3 days. Patient has chronic weakness in his left lower extremity as well as pain in the left calf area due to wound. Patient apparently was in the shower had a mechanical fall twisting his left knee and was unable to bear weight following this. He has had a previous knee replacement on the left by Dr. Mcneal and a hip replacement by Dr. Starkey. Currently, patient denies any lightheadedness or dizziness, no shortness of breath, no palpitations. Patient came into [facility] emergency center for evaluation. He was afebrile, blood pressure 107/66, pulse ox 100% on room air, heart rate 66. WBC 9.4, hemoglobin 10.8, platelet count 191. Sodium 135, potassium 4.3, chloride 103, CO2 25, BUN 44 and creatinine 1.26, blood sugar 101, CK 176, C- reactive protein 48.5, proBNP 1920, cortisol level VIII. EKG was atrial fibrillation heart rate of 133 with no acute changes. Left knee, tib-fib, foot and ankle x-ray showed no acute fracture or dislocation. CAT scan of the left lower extremity shows no acute fracture or dislocation from the knee to the toes. Patient admitted to the [facility] floor and consults requested for Dr. Kilpatrick, orthopedics and cardiology. 09/13: Patient's heart rate remained elevated up to 138 and cardiology as increased metoprolol to 50 mg 3 times daily. night monitor atrial fibri llation. Patient has been afebrile, blood pressure 114/73, pulse ox 95% on room air. Repeat blood work reveals Lisa BC 11.5, hemoglobin 9, BUN 29 creatinine 0.84. Regarding the left elbow, ultrasound did not show any evidence of quadriceps rupture. Orthopedics has done aspiration and there was no fluid in the knee. A brace has been ordered and patient may be weightbearing as tolerated with walker and brace. Solu-Cortef will be discontinued and patient started on Florinef. 09/14: Patient is afebrile, heart rate has been running in the low 100s this morning 120s, blood pressure 110/76, pulse ox 98% on room air. This morning, patient has been started on amiodarone 400 mg twice daily by cardiology. Patient remains on Lopressor 50 mg 3 times daily as well as eliquis. Patient denies any symptoms. He states he did have some shortness of breath last evening. Blood pressure is improved with Florinef. He is planning for local wound care today and ambulate with physical therapy. Lower extremity edema is improving. 09/15: Patient remains in A. fib RVR with heart rates up to 120s but improving.. Blood pressure 134/74, pulse ox 97% on room air, afebrile. Hemoglobin 9.2, BUN 23 and creatinine 0.99, electrolytes normal. Blood sugar 101. Chest x-ray reveals persistently enlarged cardiomediastinal silhouette and tortuosity of both the ascending and descending thoracic aorta. Pulmonary nodule not well visualized. Patient received 1 dose of Lasix 40 mg today. Patient states that he was up coughing all night. He is complaining of right lateral rib pain secondary to coughing. states that he has not had a bowel movement since Saturday. Senna has been changed to scheduled and milk of magnesia as needed 09/16: Patient has temperature max 100.2, heart rate 121, blood pressure 115/68, pulse ox 96% on room air. Patient started complaining of runny nose and congest ion yesterday afternoon. Influenza testing came back positive for influenza A. Chest x-ray shows no focal consolidation. Redemonstration of an enlarged cardiac mediastinal. Patient is well known thoracic aortic aneurysm and known pulmonary nodules. Repeat blood work reveals WBC 6.7, hemoglobin 8.7, platelet count 176. Sodium 136, potassium 3.9, chloride 102, CO2 26, BUN 22 and creatinine 0.98. Consult added for Dr. Silva regarding influenza. Mucinex, Atrovent nebulizer treatments and Tamiflu added. Objective - Vital Signs Vital signs: Vital Signs Temp 100.2 F H 09/17/19 12:00 Pulse 121 H 09/17/19 12:00 Resp 16 09/17/19 12:00 BP 115/68 09/17/19 12:00 Pulse Ox 96 09/17/19 12:00 Intake & Output 09/16/19 09/17/19 09/17/19 18:59 06:59 18:59 Intake Total 360 0 Output Total 1775 600 Balance -1415 -600 0 Weight 113.2 kg Intake: Oral 360 0 Output: Urine 1775 600 Other: # Voids 1 3 # Bowel Movements 0 - Exam Review of Systems Constitutional: Reports fatigue, Reports weakness, Denies chills, Denies fever, Denies poor appetite Ears, nose, mouth and throat: Denies dysphagia, Denies headache, Denies nasal congestion, Denies nasal discharge, Denies sore throat Cardiovascular: Reports leg edema increasing, Denies chest pain, Denies dyspnea on exertion, Denies edema, Denies lightheadedness, Denies palpitations, Denies shortness of breath, Denies syncope Respiratory: Reports cough, Denies cough with sputum, Denies dyspnea, Denies excessive sputum, Denies hemoptysis, Denies home oxygen, Denies respiratory infections, Denies wheezing Gastrointestinal: Denies abdominal pain, Denies constipation, Denies diarrhea, Denies loss of appetite, Denies nausea, Denies vomiting Genitourinary: Denies dysuria Musculoskeletal: Reports muscle weakness, Denies myalgias Musculoskeletal: left: knee pain Integumentary: Reports lower extremity wounds, Denies pruritus, Denies rash Neurological: Denies change in mentation, Denies change in speech, Denies numbness, Denies seizures, Denies weakness Psychiatric: Denies anxiety, Denies depression Endocrine: Denies fatigue, Denies weight change Gen: This is an 84-year-old male. He is sitting up in chair and appears to be comfortable and in no acute distress. No respiratory distress is noted. HEENT: Head is atraumatic, normocephalic. Pupils equal, round. Sclerae is anicteric. NECK: Supple. No JVD. No lymphadenopathy. No thyromegaly. LUNGS: Clear to auscultation. No wheezes, congestive cough, few scattered rhonchi. No intercostal retractions. HEART: Irregularly irregular rate and rhythm. Systolic ejection murmur. ABDOMEN: Soft. Bowel sounds are present. No masses. No tenderness. EXTREMITIES: Trace bilateral pedal edema but no involving thighs as well. No calf tenderness. Multiple lower extremity wounds. NEUROLOGICAL: Patient is awake, alert and oriented x3. Cranial nerves 2 through 12 are grossly intact. - Labs CBC & Chem 7: 09/17/19 09:40 09/17/19 09:40 Labs: Abnormal Lab Results - Last 24 Hours (Table) 09/16/19 09/16/19 09/17/19 Range/Units 16:24 20:43 05:48 RBC (4.30-5.90) m/uL Hgb (13.0-17.5) gm/dL Hct (39.0-53.0) % MCV (80.0-100.0) fL Lymphocytes # (1.0-4.8) k/uL Sodium (137-145) mmol/L BUN (9-20) mg/dL Glucose (74-99) mg/dL POC Glucose (mg/dL) 120 H 106 H 114 H (75-99) mg/dL Influenza Type A RNA (Not Detectd) 09/17/19 09/17/19 09/17/19 Range/Units 07:45 09:40 09:40 RBC 2.56 L (4.30-5.90) m/uL Hgb 8.7 L (13.0-17.5) gm/dL Hct 26.6 L (39.0-53.0) % MCV 103.9 H (80.0-100.0) fL Lymphocytes # 0.5 L (1.0-4.8) k/uL Sodium 136 L (137-145) mmol/L BUN 22 H (9-20) mg/dL Glucose 109 H (74-99) mg/dL POC Glucose (mg/dL) (75-99) mg/dL Influenza Type A RNA Detected H (Not Detectd) 09/17/19 Range/Units 12:01 RBC (4.30-5.90) m/uL Hgb (13.0-17.5) gm/dL Hct (39.0-53.0) % MCV (80.0-100.0) fL Lymphocytes # (1.0-4.8) k/uL Sodium (137-145) mmol/L BUN (9-20) mg/dL Glucose (74-99) mg/dL POC Glucose (mg/dL) 131 H (75-99) mg/dL Influenza Type A RNA (Not Detectd) Assessment and Plan Plan: 1. Mechanical fall injuring left leg. Orthopedic consult appreciated. 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 X-ray of the pelvis was also ordered by orthopedics, negative for fracture. 2. Chronic lower extremity vascular ulcers. Consult with Dr. Kilpatrick appreciated. Local wound care with Aquacel Ag dressing every 48 hours and Tex wrap for compression, left posterior leg wound Hydrofera Blue dressing not available, no need for systemic antibiotics. Lasix 40 mg 1. 3. Chronic persistent atrial fibrillation with A. fib RVR. Continue Lopressor 50 mg 3 times daily, amiodarone 400 mg twice daily, eliquis 5 mg twice daily. 4. Chronic hypotension. Continue midodrine. Lisinopril on hold 5. Chronic systolic and diastolic heart failure. Continue Lasix 40 mg twice daily, Aldactone 25 mg daily, Lopressor 50 mg 3 times daily, lisinopril on hold due to hypotension. 5. Benign prostatic hypertrophy. Monitor for urinary retention. Continue Flomax 0.4 mg twice daily. 6. Hypothyroidism. Continue levothyroxine 25 g daily. 7. Adrenal insufficiency. Solu-cortef discontinued and patient started on Florinef with planned follow-up with Dr. Pereyra, security management specialist, as an outpatient. Florinef will be discontinued due to concern of increased edema to the thighs. 8. Chronic kidney disease stage II. Avoid nephrotoxic agents. 9. Anemia of chronic disease. 10. Obstructive sleep apnea. Patient will need to use CPAP. 11. GI prophylaxis. Protonix. 12. DVT prophylaxis. Eliquis. 13. Influenza A. Patient started on Tamiflu 75 mg every 12 hours for total of 10 doses. Mucinex, DuoNeb, Pulmicort, Tessalon Perles and pulmonary consult added. Discharge plan: Home with [facility]. PT and OT evaluations. Impression and plan of care have been directed as dictated by the signing physician. Urmila Carey nurse practitioner acting as scribe for signing physician.
[2019-09-17 17:08] LABS: Glucose,Whole Blood 123 mg/dL (75-99)
[2019-09-17] MEDS: IPRATROPIUM 0.5 MG/2.5 ML NEBU INHALATION SCH ×2 (17:14→20:14)
[2019-09-17] MEDS: guaiFENesin 600 MG TABLET.ER PO SCH ×2 (17:45→20:20)
[2019-09-17] MEDS: ASPIRIN 81 MG PO SCH (17:46)
[2019-09-17 20:09] LABS: Glucose,Whole Blood 129 mg/dL (75-99)
[2019-09-17] MEDS: ACETAMINOPHEN TAB 500 MG TAB PO PRN (20:10)
[2019-09-17] MEDS: MELATONIN 3 MG TABLET PO SCH (20:11)
[2019-09-17] MEDS: BUDESONIDE 0.5 MG/2 ML NEBU INHALATION SCH (20:13)
--- NOTE | 2019-09-18 05:08 | PN ---
PROGRESS NOTE DATE OF SERVICE: 09/17/2019 REASON FOR FOLLOWUP: Bilateral lower extremity wound. INTERVAL HISTORY: The patient is currently afebrile. He did have a low-grade fever of 100.2 last night for which the patient did have influenza PCR, which came back positive. The patient had been started on Tamiflu. Currently denies having any chest pain, shortness of breath or cough. No abdominal pain. No pain in the lower extremity. PHYSICAL EXAMINATION: Blood pressure is 101/59 with a pulse of 95, temperature 98.9. He is 96% on room air. General description is an elderly male up in the chair in no distress. RESPIRATORY SYSTEM: Unlabored breathing, decreased breath sounds at the bases. No wheeze. HEART: S1, S2. Regular rate and rhythm. ABDOMEN: Soft, no tenderness. LEGS: Wounds have decreased in size. No fluctuation or surrounding redness. LABS: Hemoglobin 8.7, white count 6.7, BUN of 22, creatinine 0.98. DIAGNOSTIC IMPRESSION AND PLAN: 1. Patient with bilateral lower extremity wounds likely , no evidence of any significant cellulitis. Local wound care to continue with dry Aquacel silver dressing and Tex wrap to keep the swelling down. 2. Acute influenza. Continue with Tamiflu 75 mg twice a day for 5 days. MMODL / IJN: [id number] /
[2019-09-18] MEDS: MIDODRINE 5 MG TAB PO SCH ×4 (06:11→17:57)
[2019-09-18] MEDS: TAMSULOSIN 0.4 MG CAP.ER.24H PO SCH ×2 (06:12→17:59)
[2019-09-18] MEDS: SPIRONOLACTONE 25 MG TAB PO SCH (06:12)
[2019-09-18] MEDS: LEVOTHYROXINE 25 MCG TAB PO SCH (06:12)
[2019-09-18] MEDS: PANTOPRAZOLE 40 MG TABLET PO SCH (06:12)
[2019-09-18 06:27] LABS: Glucose,Whole Blood 105 mg/dL (75-99)
[2019-09-18] MEDS: INSULIN ASPART (NovoLOG) 100 UNIT/ML VIAL SQ SCH ×4 (06:28→20:38)
[2019-09-18] MEDS: IPRATROPIUM 0.5 MG/2.5 ML NEBU INHALATION SCH ×4 (08:14→20:59)
[2019-09-18] MEDS: BUDESONIDE 0.5 MG/2 ML NEBU INHALATION SCH ×2 (08:14→20:59)
[2019-09-18] MEDS: FUROSEMIDE 40 MG TAB PO SCH ×2 (08:19→17:57)
[2019-09-18] MEDS: APIXABAN 5 MG TAB PO SCH ×2 (08:19→20:15)
[2019-09-18] MEDS: AMIODARONE 200 MG TAB PO SCH ×2 (08:19→20:16)
[2019-09-18] MEDS: guaiFENesin 600 MG TABLET.ER PO SCH ×2 (08:19→20:15)
[2019-09-18] MEDS: OSELTAMIVIR 75 MG CAP PO SCH ×2 (08:19→20:15)
[2019-09-18] MEDS: METOPROLOL TARTRATE 50 MG TAB PO SCH ×3 (08:20→21:00)
[2019-09-18] MEDS: SENNOSIDES-DOCUSATE SODIUM 1 EACH TAB PO SCH (08:20)
[2019-09-18 12:55] LABS: Glucose,Whole Blood 107 mg/dL (75-99)
--- NOTE | 2019-09-18 14:01 | P.PN ---
Subjective Progress Note Date: 09/18/19 This is an 84-year-old male patient of Dr. Mosqueda with past medical history of paroxysmal atrial fibrillation status post cardiac ablation in 2007 as well as cardioversions a couple times since then, hypertension, osteoarthritis, obstructive sleep apnea but not currently on a CPAP, psoriasis, hard of hearing. Patient was treated in July at [facility] for heart failure and that that time also developed hematoma to the left hip. Patient was hospitalized on August 14 through August 25 at [facility] at which time he was treated for A. fib with RVR status post BRIAN and electrocardioversion, chronic lower extremity vascular ulcers and edema with cellulitis and acute on chronic systolic and diastolic heart failure. Patient had been started on midodrine due to hypotension. Patient was discharged to [facility] and patient states that he left the prison and has been home for 3 days. Patient has chronic weakness in his left lower extremity as well as pain in the left calf area due to wound. Patient apparently was in the shower had a mechanical fall twisting his left knee and was unable to bear weight following this. He has had a previous knee replacement on the left by Dr. Mcneal and a hip replacement by Dr. Starkey. Currently, patient denies any lightheadedness or dizziness, no shortness of breath, no palpitations. Patient came into [facility] emergency center for evaluation. He was afebrile, blood pressure 107/66, pulse ox 100% on room air, heart rate 66. WBC 9.4, hemoglobin 10.8, platelet count 191. Sodium 135, potassium 4.3, chloride 103, CO2 25, BUN 44 and creatinine 1.26, blood sugar 101, CK 176, C- reactive protein 48.5, proBNP 1920, cortisol level VIII. EKG was atrial fibrillation heart rate of 133 with no acute changes. Left knee, tib-fib, foot and ankle x-ray showed no acute fracture or dislocation. CAT scan of the left lower extremity shows no acute fracture or dislocation from the knee to the toes. Patient admitted to [facility] floor and consults requested for Dr. Kilpatrick, orthopedics and cardiology. 09/13: Patient's heart rate remained elevated up to 138 and cardiology as increased metoprolol to 50 mg 3 times daily. chauffeur atrial fibri llation. Patient has been afebrile, blood pressure 114/73, pulse ox 95% on room air. Repeat blood work reveals Lisa BC 11.5, hemoglobin 9, BUN 29 creatinine 0.84. Regarding the left elbow, ultrasound did not show any evidence of quadriceps rupture. Orthopedics has done aspiration and there was no fluid in the knee. A brace has been ordered and patient may be weightbearing as tolerated with walker and brace. Solu-Cortef will be discontinued and patient started on Florinef. 09/14: Patient is afebrile, heart rate has been running in the low 100s this morning 120s, blood pressure 110/76, pulse ox 98% on room air. This morning, patient has been started on amiodarone 400 mg twice daily by cardiology. Patient remains on Lopressor 50 mg 3 times daily as well as eliquis. Patient denies any symptoms. He states he did have some shortness of breath last evening. Blood pressure is improved with Florinef. He is planning for local wound care today and ambulate with physical therapy. Lower extremity edema is improving. 09/15: Patient remains in A. fib RVR with heart rates up to 120s but improving.. Blood pressure 134/74, pulse ox 97% on room air, afebrile. Hemoglobin 9.2, BUN 23 and creatinine 0.99, electrolytes normal. Blood sugar 101. Chest x-ray reveals persistently enlarged cardiomediastinal silhouette and tortuosity of both the ascending and descending thoracic aorta. Pulmonary nodule not well visualized. Patient received 1 dose of Lasix 40 mg today. Patient states that he was up coughing all night. He is complaining of right lateral rib pain secondary to coughing. states that he has not had a bowel movement since Saturday. Senna has been changed to scheduled and milk of magnesia as needed 09/16: Patient has temperature max 100.2, heart rate 121, blood pressure 115/68, pulse ox 96% on room air. Patient started complaining of runny nose and congest ion yesterday afternoon. Influenza testing came back positive for influenza A. Chest x-ray shows no focal consolidation. Redemonstration of an enlarged cardiac mediastinal. Patient is well known thoracic aortic aneurysm and known pulmonary nodules. Repeat blood work reveals WBC 6.7, hemoglobin 8.7, platelet count 176. Sodium 136, potassium 3.9, chloride 102, CO2 26, BUN 22 and creatinine 0.98. Consult added for Dr. Silva regarding influenza. Mucinex, Atrovent nebulizer treatments and Tamiflu added. 09/17: Patient continues to have cough but fever and chills have resolved. He states he had some nausea and vomiting yesterday but this is improved. Patient is eating 100% of his meals today. Patient is complaining of left hip pain today and apparently he had a fall on Saturday. X-ray will be obtained. Consult with Dr. Silva has been discontinued as patient is clinically stable. Patient remains in atrial fibrillation but today rate is controlled. Anticipate possible discharge over the weekend if patient remains stable. Objective - Vital Signs Vital signs: Vital Signs Temp 97.5 F L 09/18/19 08:00 Pulse 96 09/18/19 08:29 Resp 16 09/18/19 08:00 BP 119/59 09/18/19 08:00 Pulse Ox 97 09/18/19 08:00 Intake & Output 09/17/19 09/18/19 09/18/19 18:59 06:59 18:59 Intake Total 0 Output Total 450 200 Balance -450 -200 Weight 111.9 kg Intake: Oral 0 Output: Urine 450 200 Other: # Voids 1 # Bowel Movements 0 - Exam Review of Systems Constitutional: Reports fatigue, Reports weakness, Denies chills, Denies fever, Denies poor appetite Ears, nose, mouth and throat: Denies dysphagia, Denies headache, Denies nasal congestion, Denies nasal discharge, Denies sore throat Cardiovascular: Reports leg edema increasing, Denies chest pain, Denies dyspnea on exertion, Denies edema, Denies lightheadedness, Denies palpitations, Denies shortness of breath, Denies syncope Respiratory: Reports cough, Denies cough with sputum, Denies dyspnea, Denies excessive sputum, Denies hemoptysis, Denies home oxygen, Denies respiratory infections, Denies wheezing Gastrointestinal: Denies abdominal pain, Denies constipation, Denies diarrhea, Denies loss of appetite, Denies nausea, Denies vomiting Genitourinary: Denies dysuria Musculoskeletal: Reports muscle weakness, Denies myalgias Musculoskeletal: reports left hip pain Integumentary: Reports lower extremity wounds, Denies pruritus, Denies rash Neurological: Denies change in mentation, Denies change in speech, Denies numbness, Denies seizures, Denies weakness Psychiatric: Denies anxiety, Denies depression Endocrine: Denies fatigue, Denies weight change Gen: This is an 84-year-old male. He is sitting up in chair and appea rs to be comfortable and in no acute distress. No respiratory distress is noted. HEENT: Head is atraumatic, normocephalic. Pupils equal, round. Sclerae is anicteric. NECK: Supple. No JVD. No lymphadenopathy. No thyromegaly. LUNGS: Clear to auscultation. No wheezes, congestive cough, few scattered rhonchi. No intercostal retractions. HEART: Irregularly irregular rate and rhythm. Systolic ejection murmur. ABDOMEN: Soft. Bowel sounds are present. No masses. No tenderness. EXTREMITIES: Trace bilateral pedal edema but no involving thighs as well. No calf tenderness. Multiple lower extremity wounds. NEUROLOGICAL: Patient is awake, alert and oriented x3. Cranial nerves 2 through 12 are grossly intact. - Labs CBC & Chem 7: 09/17/19 09:40 09/17/19 09:40 Labs: Abnormal Lab Results - Last 24 Hours (Table) 09/17/19 09/17/19 09/17/19 Range/Units 07:45 09:40 12:01 Sodium 136 L (137-145) mmol/L BUN 22 H (9-20) mg/dL Glucose 109 H (74-99) mg/dL POC Glucose (mg/dL) 131 H (75-99) mg/dL Influenza Type A RNA Detected H (Not Detectd) 09/17/19 09/17/19 09/18/19 Range/Units 17:04 20:08 06:25 Sodium (137-145) mmol/L BUN (9-20) mg/dL Glucose (74-99) mg/dL POC Glucose (mg/dL) 123 H 129 H 105 H (75-99) mg/dL Influenza Type A RNA (Not Detectd) Assessment and Plan Plan: 1. Mechanical fall injuring left leg. Orthopedic consult appreciated. 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 X-ray of the pelvis was also ordered by orthopedics, negative for fracture. Patient is complaining of left hip pain and x-ray will be ordered. 2. Chronic lower extremity vascular ulcers. Consult with Dr. Kilpatrick appreciated. Local wound care with Aquacel Ag dressing every 48 hours and Tex wrap for compression, left posterior leg wound Hydrofera Blue dressing not available, no need for systemic antibiotics. Lasix 40 mg 1. 3. Chronic persistent atrial fibrillation with A. fib RVR. Continue Lopressor 50 mg 3 times daily, amiodarone 400 mg twice daily, eliquis 5 mg twice daily. 4. Chronic hypotension. Continue midodrine. Lisinopril on hold 5. Chronic systolic heart failure. Continue Lasix 40 mg twice daily, Aldactone 25 mg daily, Lopressor 50 mg 3 times daily, lisinopril on hold due to hypotension. 5. Benign prostatic hypertrophy. Monitor for urinary retention. Continue Flomax 0.4 mg twice daily. 6. Hypothyroidism. Continue levothyroxine 25 g daily. 7. Adrenal insufficiency. Solu-cortef discontinued and patient started on Florinef with planned follow-up with Dr. Pereyra, user experience analyst, as an outpatient. Florinef will be discontinued due to concern of increased edema to the thighs. 8. Chronic kidney disease stage II. Avoid nephrotoxic agents. 9. Anemia of chronic disease. 10. Obstructive sleep apnea. Patient will need to use CPAP. 11. GI prophylaxis. Protonix. 12. DVT prophylaxis. Eliquis. 13. Influenza A. Patient started on Tamiflu 75 mg every 12 hours for total of 10 doses. Mucinex, DuoNeb, Pulmicort, Tessalon Perles. Discharge plan: Home with [facility]. PT and OT evaluations. Impression and plan of care have been directed as dictated by the signing physician. Urmila Carey nurse practitioner acting as scribe for signing physician.
--- NOTE | 2019-09-18 15:22 | P.PN ---
Subjective Progress Note Date: 09/17/19 Principal diagnosis: Left knee pain. Quadricep dysfunction left knee. Multiple medical Comorbidities. This is an 84-year-old male with history of total left knee arthroplasty in the past. He is also had right knee and left hip replacement. He states that he has had a few falls recently. He was at [facility] for congestive heart failure the last couple of months and states that he did have a fall prior to that. He had a large hematoma to the posterior aspect of his thigh at that time. He went to [facility] for rehab after that admission. He states that he has been unable to extend the knee actively and his knee continues to give out on him. He had a recent fall prior to this admission and states that his knee gave out on him causing him to fall. 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 We are consulted for evaluation of the left knee. Ultrasound of the left knee was performed which showed no evidence of quadriceps rupture. In extension assist brace was ordered yesterday. The brace has not yet arrived. He has had a fever with chills and cough for the past 24h. Patient has tested positive for influenza A. Viital signs are stable. Objective - Vital Signs Vital signs: Vital Signs Temp 97.5 F L 09/18/19 08:00 Pulse 92 09/18/19 11:25 Resp 16 09/18/19 08:00 BP 119/59 09/18/19 08:00 Pulse Ox 97 09/18/19 08:00 Intake & Output 09/17/19 09/18/19 09/18/19 18:59 06:59 18:59 Intake Total 0 480 Output Total 450 200 400 Balance -450 -200 80 Weight 111.9 kg Intake: Oral 0 480 Output: Urine 450 200 400 Other: # Voids 1 # Bowel Movements 0 - Exam This is a pleasant 84-year-old male in no acute distress. He is resting comfortably. I am unable to arouse him with verbal stimuli. No obvious changes on orthopedic exam. - Labs CBC & Chem 7: 09/17/19 09:40 09/17/19 09:40 Labs: Abnormal Lab Results - Last 24 Hours (Table) 09/17/19 09/17/19 09/18/19 Range/Units 17:04 20:08 06:25 POC Glucose (mg/dL) 123 H 129 H 105 H (75-99) mg/dL 09/18/19 Range/Units 12:52 POC Glucose (mg/dL) 107 H (75-99) mg/dL Assessment and Plan (1) Atrial fibrillation Current Visit: Yes Status: Acute Code(s): I48.91 - UNSPECIFIED ATRIAL FIBRILLATION SNOMED Code(s): 51996223 (2) Fall Current Visit: Yes Status: Acute Code(s): W19.XXXA - UNSPECIFIED FALL, INITIAL ENCOUNTER SNOMED Code(s): 9114314 (3) Left knee pain Current Visit: Yes Status: Acute Code(s): M25.562 - PAIN IN LEFT KNEE SNOMED Code(s): 46361944 (4) Leg wound, left Current Visit: Yes Status: Acute Code(s): S81.802A - UNSPECIFIED OPEN WOUND, LEFT LOWER LEG, INITIAL ENCOUNTER SNOMED Code(s): 290501745 (5) Atrial fibrillation with RVR Current Visit: No Status: Acute Code(s): I48.91 - UNSPECIFIED ATRIAL FIBRILLATION SNOMED Code(s): 051952511235584 (6) Quadriceps weakness Current Visit: Yes Status: Acute Code(s): M62.81 - MUSCLE WEAKNESS (GENERALIZED) SNOMED Code(s): 134237892 (7) Influenza A Current Visit: Yes Status: Acute Code(s): J10.1 - FLU DUE TO OTH IDENT INFLUENZA VIRUS W OTH RESP MANIFEST SNOMED Code(s): 559949159 Plan: The patient is awaiting extension assist brace. He may remain in the knee immobilizer until brace is delivered. May bear wt as tolerated in either brace with walker. We will sign off from an orthopedic standpoint. He is to follow up with Dr Aragon in 2 weeks.
--- NOTE | 2019-09-18 15:53 | P.PN ---
Subjective Progress Note Date: 09/18/19 This is a pleasant 84-year-old male past medical history significant for chronic persistent atrial fibrillation on long-term anticoagulation status post cardioversion was successful for only one week, systolic heart failure and hypotension. He follows in the office with Dr. Martinez. We have been asked to see in consultation for hypotension. He presented to the emergency department after having a fall in the shower. He was just discharged from [facility] and they were attempting to get him in the shower for the first time since coming home. He was trying to lift his leg and it got caught on the shower ledge causing him to fall. On arrival he was found to be in atrial fibrillation with rapid ventricular response. Heart rate is fluctuating between 130 and 140 on the monitor. He denies symptoms of palpitations, dizziness, shortness of breath or chest pain. On 08/19/2019 he underwent a BRIAN cardioversion that was initially successful however the states it only lasted for about one week. Most recent echocardiogram obtained in August 2019 revealed impaired LV systolic function with ejection fraction 40-45%. 09/18/2019 Upon examination, patient is resting comfortably in a chair. He does continue to have a cough and was found to be positive for influenza A. He denies any chest discomfort but continues to be somewhat dyspneic. He has no complaints of dizziness or palpitations. Denies any nausea or vomiting. Continues to be in atrial fibrillation with a heart rate remaining in the 90s to 120s. He is currently on amiodarone 400 mg by mouth twice a day and metoprolol tartrate 50 mg by mouth 3 times a day. He's also on Eliquis 5 mg by mouth twice a day, aspirin 81 mg daily, Lasix 40 mg by mouth twice a day, midodrine 10 mg by mouth 3 times a day, Aldactone 25 mg by mouth daily and Tamiflu. Objective - Vital Signs Vital signs: Vital Signs Temp 97.5 F L 09/18/19 08:00 Pulse 92 09/18/19 11:25 Resp 16 09/18/19 08:00 BP 119/59 09/18/19 08:00 Pulse Ox 97 09/18/19 08:00 Intake & Output 09/17/19 09/18/19 09/18/19 18:59 06:59 18:59 Intake Total 0 480 Output Total 450 200 400 Balance -450 -200 80 Weight 111.9 kg Intake: Oral 0 480 Output: Urine 450 200 400 Other: # Voids 1 # Bowel Movements 0 - Exam PHYSICAL EXAMINATION: HEENT: Head is atraumatic, normocephalic. Pupils equal, round. Neck is supple. There is no elevated jugular venous pressure. HEART EXAMINATION: Heart sounds irregularly irregular, S1 and S2 with a systolic ejection murmur at the left sternal border, tachycardia noted. CHEST EXAMINATION: Lungs reveal wheezing bilaterally with few crackles. No chest wall tenderness is noted on palpation or with deep breathing. ABDOMEN: Soft, nontender. Bowel sounds are heard. No organomegaly noted. EXTREMITIES: Tex wraps in place bilaterally. NEUROLOGIC patient is awake, alert and oriented x3. . - Labs CBC & Chem 7: 09/17/19 09:40 09/17/19 09:40 Labs: Abnormal Lab Results - Last 24 Hours (Table) 09/17/19 09/17/19 09/18/19 Range/Units 17:04 20:08 06:25 POC Glucose (mg/dL) 123 H 129 H 105 H (75-99) mg/dL 09/18/19 Range/Units 12:52 POC Glucose (mg/dL) 107 H (75-99) mg/dL Assessment and Plan Assessment: #1 Atrial fibrillation with rapid ventricular response, chronic persistent refractory to cardioversion #2 history of moderate cardiomyopathy #3 History of hypotension maintained on midodrine #4 Valvular heart disease #5 influenza A Plan: From cardiology's perspective, medications reviewed and we will continue the same. Continue telemetry monitoring. Anticipate decreasing amiodarone on September 19. Down the road patient may be a candidate for repeat cardioversion or possible permanent pacemaker implantation and AV node ablation. We'll continue to follow the patient and provide further recommendations accordingly. POST CLOSING SPECIALIST note has been reviewed, I agree with a documented findings and plan of care. Patient was seen and examined.
[2019-09-18 17:26] LABS: Glucose,Whole Blood 122 mg/dL (75-99)
[2019-09-18] MEDS: ASPIRIN 81 MG PO SCH (17:58)
--- NOTE | 2019-09-18 18:29 | XR ---
EXAMINATION TYPE: XR Hip Complete LT DATE OF EXAM: 09/18/2019 COMPARISON: 08/24/2019 HISTORY: Pain TECHNIQUE: One view submitted. FINDINGS: There is postsurgical change in near anatomic alignment. Chronic appearing deformity of the glenoid.. Diffuse osteopenia. Degenerative change lower lumbar spine. IMPRESSION: 1. Postoperative change left hip
[2019-09-18] MEDS: HYDROcodone/APAP 5-325MG 1 EACH TAB PO PRN (20:15)
[2019-09-18 20:29] LABS: Glucose,Whole Blood 113 mg/dL (75-99)
[2019-09-18] MEDS: MELATONIN 3 MG TABLET PO SCH (21:01)
--- NOTE | 2019-09-18 23:22 | PN ---
PROGRESS NOTE DATE OF SERVICE: 09/18/2019 REASON FOR FOLLOW UP: Bilateral lower extremity wound. INTERVAL HISTORY: The patient is currently afebrile, has been breathing comfortably. Denies having any chest pain. Occasional cough. No abdominal pain. No pain in both legs. PHYSICAL EXAMINATION: Blood pressure 106/62 with a pulse of 92, temperature 98.1. He is 96% on room air. General description is an elderly male up in the chair in no distress. Respiratory system: Unlabored breathing. Clear to auscultation anteriorly. Heart S1, S2. Regular rate and rhythm. Abdomen soft. No tenderness. Legs are currently wrapped up. No obvious drainage on the dressing. LABS: Hemoglobin 8.7, white count 6.7. BUN of 22, creatinine 0.98 with 0.09. DIAGNOSTIC IMPRESSION AND PLAN: 1. Patient with bilateral lower extremity wound, now with cellulitis. Local care to continue with Aquacel dressing. 2. Acute influenza on Tamiflu to finish antibiotic therapy. 3. Continue supportive care. MMODL / IJN: [id number] /
[2019-09-19] MEDS: BENZONATATE 100 MG CAP PO PRN (03:58)
[2019-09-19] MEDS: LEVOTHYROXINE 25 MCG TAB PO SCH (04:00)
[2019-09-19] MEDS: INSULIN ASPART (NovoLOG) 100 UNIT/ML VIAL SQ SCH ×5 (05:58→20:26)
[2019-09-19] MEDS: SPIRONOLACTONE 25 MG TAB PO SCH (05:59)
[2019-09-19] MEDS: MIDODRINE 5 MG TAB PO SCH ×3 (05:59→16:51)
[2019-09-19] MEDS: PANTOPRAZOLE 40 MG TABLET PO SCH (05:59)
[2019-09-19] MEDS: TAMSULOSIN 0.4 MG CAP.ER.24H PO SCH ×2 (05:59→16:51)
[2019-09-19 06:02] LABS: Glucose,Whole Blood 108 mg/dL (75-99)
[2019-09-19 07:07] LABS: HCT 28.5 % (39.0-53.0); MCH 33.4 pg (25.0-35.0); MCHC 31.6 g/dL (31.0-37.0); MCV 105.8 fL (80.0-100.0); Macrocytosis Moderate; Mean Platelet Volume 7.7; Platelet Count 203 k/uL (150-450); RDW 14.6 % (11.5-15.5); WBC 5.5 k/uL (3.8-10.6)
[2019-09-19 07:22] LABS: Calcium 8.3 mg/dL (8.4-10.2)
[2019-09-19] MEDS: BUDESONIDE 0.5 MG/2 ML NEBU INHALATION SCH ×2 (09:10→20:28)
[2019-09-19] MEDS: IPRATROPIUM 0.5 MG/2.5 ML NEBU INHALATION SCH ×4 (09:10→20:28)
[2019-09-19] MEDS: FUROSEMIDE 40 MG TAB PO SCH (09:56)
[2019-09-19] MEDS: METOPROLOL TARTRATE 50 MG TAB PO SCH ×3 (09:56→21:21)
[2019-09-19] MEDS: guaiFENesin 600 MG TABLET.ER PO SCH ×2 (09:56→20:39)
[2019-09-19] MEDS: AMIODARONE 200 MG TAB PO SCH ×2 (09:56→20:39)
[2019-09-19] MEDS: APIXABAN 5 MG TAB PO SCH ×2 (09:57→20:39)
[2019-09-19] MEDS: OSELTAMIVIR 75 MG CAP PO SCH ×2 (09:57→20:39)
[2019-09-19] MEDS: SENNOSIDES-DOCUSATE SODIUM 1 EACH TAB PO SCH (09:57)
--- NOTE | 2019-09-19 11:17 | P.PN ---
Subjective This is an 84-year-old male patient of Dr. Mosqueda with past medical history of paroxysmal atrial fibrillation status post cardiac ablation in 2007 as well as cardioversions a couple times since then, hypertension, osteoarthritis, obstructive sleep apnea but not currently on a CPAP, psoriasis, hard of hearing. Patient was treated in July at [facility] for heart failure and that that time also developed hematoma to the left hip. Patient was hospitalized on August 14 through August 25 at [facility] at which time he was treated for A. fib with RVR status post BRIAN and electrocardioversion, chronic lower extremity vascular ulcers and edema with cellulitis and acute on chronic systolic and diastolic heart failure. Patient had been started on midodrine due to hypotension. Patient was discharged to [facility] and patient states that he left the usp and has been home for 3 days. Patient has chronic weakness in his left lower extremity as well as pain in the left calf area due to wound. Patient apparently was in the shower had a mechanical fall twisting his left knee and was unable to bear weight following this. He has had a previous knee replacement on the left by Dr. Mcneal and a hip replacement by Dr. Starkey. Currently, patient denies any lightheadedness or dizziness, no shortness of breath, no palpitations. Patient came into [facility] emergency center for evaluation. He was afebrile, blood pressure 107/66, pulse ox 100% on room air, heart rate 66. WBC 9.4, hemoglobin 10.8, platelet count 191. Sodium 135, potassium 4.3, chloride 103, CO2 25, BUN 44 and creatinine 1.26, blood sugar 101, CK 176, C- reactive protein 48.5, proBNP 1920, cortisol level VIII. EKG was atrial fibrillation heart rate of 133 with no acute changes. Left knee, tib-fib, foot and ankle x-ray showed no acute fracture or dislocation. CAT scan of the left lower extremity shows no acute fracture or dislocation from the knee to the to es. Patient admitted to the Med[facility] floor and consults requested for Dr. Kilpatrick, orthopedics and cardiology. 09/13: Patient's heart rate remained elevated up to 138 and cardiology as increased metoprolol to 50 mg 3 times daily. monitoring analyst atrial fibrillation. Patient has been afebrile, blood pressure 114/73, pulse ox 95% on room air. Repeat blood work reveals Lisa BC 11.5, hemoglobin 9, BUN 29 creatinine 0.84. Regarding the left elbow, ultrasound did not show any evidence of quadriceps rupture. Orthopedics has done aspiration and there was no fluid in the knee. A brace has been ordered and patient may be weightbearing as tolerated with walker and brace. Solu-Cortef will be discontinued and patient started on Florinef. 09/14: Patient is afebrile, heart rate has been running in the low 100s this morning 120s, blood pressure 110/76, pulse ox 98% on room air. This morning, patient has been started on amiodarone 400 mg twice daily by cardiology. Patient remains on Lopressor 50 mg 3 times daily as well as eliquis. Patient denies any symptoms. He states he did have some shortness of breath last evening. Blood pressure is improved with Florinef. He is planning for local wound care today and ambulate with physical therapy. Lower extremity edema is improving. 09/15: Patient remains in A. fib RVR with heart rates up to 120s but improving.. Blood pressure 134/74, pulse ox 97% on room air, afebrile. Hemoglobin 9.2, BUN 23 and creatinine 0.99, electrolytes normal. Blood sugar 101. Chest x-ray reveals persistently enlarged cardiomediastinal silhouette and tortuosity of both the ascending and descending thoracic aorta. Pulmonary nodule not well visualized. Patient received 1 dose of Lasix 40 mg today. Patient states that he was up coughing all night. He is complaining of right lateral rib pain secondary to coughing. states that he has not had a bowel movement since Saturday. Senna has been changed to scheduled and milk of magnesia as needed 09/16: Patient has temperature max 100.2, heart rate 121, blood pressure 115/68, pulse ox 96% on room air. Patient started complaining of runny nose and congestion yesterday afternoon. Influenza testing came back positive for influenza A. Chest x-ray shows no focal consolidation. Redemonstration of an enlarged cardiac mediastinal. Patient is well known thoracic aortic aneurysm and known pulmonary nodules. Repeat blood work reveals WBC 6.7, hemoglobin 8.7, platelet count 176. Sodium 136, potassium 3.9, chloride 102, CO2 26, BUN 22 and creatinine 0.98. Consult added for Dr. Silva regarding influenza. Mucinex, Atrovent nebulizer treatments and Tamiflu added. 09/17: Patient continues to have cough but fever and chills have resolved. He states he had some nausea and vomiting yesterday but this is improved. Patient is eating 100% of his meals today. Patient is complaining of left hip pain today and apparently he had a fall on Saturday. X-ray will be obtained. Consult with Dr. Silva has been discontinued as patient is clinically stable. Patient remains in atrial fibrillation but today rate is controlled. Anticipate possible discharge over the weekend if patient remains stable. 09/18: Patient slept in a chair last night due to comfort. Patient states that it is easy for him to get up from the chair and utilize the urine all compared to in the bed. Patient continues to have discomfort to the left lower extremity. Complaining of pain and hematoma to the medial aspects of the upper left lower extremity. Patient utilizes a brace when ambulatory with a walker. However his new brace will not be in for 1 week. Patient heart rate remains to be tachycardic. Review of Systems Constitutional: Reports fatigue, Reports weakness, Denies chills, Denies fever, Denies poor appetite Ears, nose, mouth and throat: Denies dysphagia, Denies headache, Denies nasal congestion, Denies nasal discharge, Denies sore throat Cardiovascular: Reports leg edema increasing, Denies chest pain, Denies dyspnea on exertion, Denies edema, Denies lightheadedness, Denies palpitations, Denies shortness of breath, Denies syncope Respiratory: Reports cough, Denies cough with sputum, Denies dyspnea, Denies excessive sputum, Denies hemoptysis, Denies home oxygen, Denies respiratory infections, Denies wheezing Gastrointestinal: Denies abdominal pain, Denies constipation, Denies diarrhea, Denies loss of appetite, Denies nausea, Denies vomiting Genitourinary: Denies dysuria Musculoskeletal: Reports muscle weakness, Denies myalgias Musculoskeletal: reports left hip pain Integumentary: Reports lower extremity wounds, reports ecchymosis Denies pruritus, Denies rash Neurological: Denies change in mentation, Denies change in speech, Denies numbness, Denies seizures, Denies weakness Psychiatric: Denies anxiety, Denies depression Endocrine: Denies fatigue, Denies weight change Objective - Vital Signs Vital signs: Vital Signs Temp 97.8 F 09/19/19 08:50 Pulse 92 09/19/19 09:23 Resp 20 09/19/19 08:50 BP 104/53 09/19/19 08:50 Pulse Ox 97 09/19/19 08:50 Intake & Output 09/18/19 09/19/19 09/19/19 18:59 06:59 18:59 Intake Total 720 Output Total 800 900 Balance -80 -900 Weight 110.8 kg Intake: Oral 720 Output: Urine 800 900 - Exam Gen: This is an 84-year-old male. He is sitting up in chair and appears to be comfortable and in no acute distress. No respiratory distress is noted. HEENT: Head is atraumatic, normocephalic. Pupils equal, round. Sclerae is anicteric. NECK: Supple. No JVD. No lymphadenopathy. No thyromegaly. LUNGS: Clear to auscultation. No wheezes, congestive cough, few scattered rhonc hi. No intercostal retractions. HEART: Irregularly irregular rate and rhythm. Systolic ejection murmur. ABDOMEN: Soft. Bowel sounds are present. No masses. No tenderness. EXTREMITIES: Ecchymosis to medial aspect of upper portion of left lower extremity from greater trochanter extending to mid femur .Trace bilateral pedal edema but no involving thighs as well. No calf tenderness. Multiple lower extremity wounds. NEUROLOGICAL: Patient is awake, alert and oriented x3. Cranial nerves 2 through 12 are grossly intact. - Labs CBC & Chem 7: 09/19/19 05:50 09/19/19 05:50 Labs: Abnormal Lab Results - Last 24 Hours (Table) 09/18/19 09/18/19 09/18/19 Range/Units 12:52 17:25 20:26 RBC (4.30-5.90) m/uL Hgb (13.0-17.5) gm/dL Hct (39.0-53.0) % MCV (80.0-100.0) fL BUN (9-20) mg/dL POC Glucose (mg/dL) 107 H 122 H 113 H (75-99) mg/dL Calcium (8.4-10.2) mg/dL 09/19/19 09/19/19 09/19/19 Range/Units 05:50 05:50 05:58 RBC 2.70 L (4.30-5.90) m/uL Hgb 9.0 L (13.0-17.5) gm/dL Hct 28.5 L (39.0-53.0) % MCV 105.8 H (80.0-100.0) fL BUN 33 H (9-20) mg/dL POC Glucose (mg/dL) 108 H (75-99) mg/dL Calcium 8.3 L (8.4-10.2) mg/dL Assessment and Plan Plan: 1. Mechanical fall injuring left leg. Orthopedic consult appreciated. CAT scan of left femur and hip ordered. Related to ecchymosis. Ultrasound results noted above. X-ray of the pelvis was negative for fracture. X-ray of hip was negative for fracture 2. Chronic lower extremity vascular ulcers. Consult with Dr. Kilpatrick appreciated. Local wound care with Aquacel Ag dressing every 48 hours and Tex wrap for compression, left posterior leg wound Hydrofera Blue dressing not available, no need for systemic antibiotics. Lasix 40 mg 1. 3. Chronic persistent atrial fibrillation with A. fib RVR. Continue Lopressor 50 mg 3 times daily, amiodarone 400 mg twice daily, eliquis 5 mg twice daily. 4. Chronic hypotension. Continue midodrine. Lisinopril on hold 5. Chronic systolic heart failure. Continue Lasix 40 mg twice daily, Aldactone 25 mg daily, Lopressor 50 mg 3 times daily, lisinopril on hold due to hypotension. 5. Benign prostatic hypertrophy. Monitor for urinary retention. Continue Flomax 0.4 mg twice daily. 6. Hypothyroidism. Continue levothyroxine 25 g daily. 7. Adrenal insufficiency. Solu-cortef discontinued and patient started on Florinef with planned follow-up with Dr. 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 Florinef will be discontinued due to concern of increased edema to the thighs. 8. Chronic kidney disease stage II. Avoid nephrotoxic agents. 9. Anemia of chronic disease. 10. Obstructive sleep apnea. Patient will need to use CPAP. 11. GI prophylaxis. Protonix. 12. DVT prophylaxis. Eliquis. 13. Influenza A. Patient started on Tamiflu 75 mg every 12 hours for total of 10 doses. Mucinex, DuoNeb, Pulmicort, Tessalon Perles. Discharge plan: Home with [facility]. PT and OT evaluations. Impression and plan of care have been directed as dictated by the signing physician. Darlene Aranda nurse practitioner acting as scribe for signing physician.
[2019-09-19 12:22] VITALS: BMI 33.1
[2019-09-19 12:31] LABS: Glucose,Whole Blood 126 mg/dL (75-99)
--- NOTE | 2019-09-19 13:26 | CT ---
EXAMINATION TYPE: CT hip LT wo con, CT femur LT wo con DATE OF EXAM: 09/19/2019 COMPARISON: Left hip x-rays dated 09/18/2019 HISTORY: Fall, hematoma. Left hip pain. CT DLP: 1315.5 mGycm Automated exposure control for dose reduction was used. TECHNIQUE: Contiguous axial CT slices were obtained of the left hip and femur in this patient status post fall. FINDINGS: There is a left hip arthroplasty that create extensive spray artifact and makes evaluation of the faizna rounding acetabulum and proximal femur nondiagnostic. There is also patient motion at this level. In the left sacrum near the sacroiliac joint there is a sclerotic 1.2 cm lesion. Sacroiliac joint sclero sis is also seen that is likely degenerative. The left superior pubic ramus and inferior pubic ramus are grossly intact. Again these are slightly limited due to the above findings. There is a left knee arthroplasty that also creates susceptibility artifact. The visualized left femu r is intact. Extensive atherosclerosis is seen of the left femoral artery and its branches. Intramedu llary chondral lesion of the femur likely relates to a small bone infarct or enchondroma and measures less than 1 cm. No evidence of hardware displacement. There is skin thickening and subcutaneous fat stranding indicative of a contusion of the left thigh b eginning overlying the left low sacroiliac joint and extending over the left lateral thigh to just ab ove the knee. More diffuse subcutaneous edema begins at the knee. No well-formed fluid collection to suggest hematoma. Diffuse muscular atrophy is seen with intramuscular edema of the vastus lateralis. Few sigmoid diverticula are incidentally seen. Rectum, bladder, prostate gland are obscured by artifa ct from the left hip prosthesis. IMPRESSION: 1. NO [place] BONE OR HARDWARE FRACTURE OF THE LEFT HIP OR FEMUR. 2. SUBCUTANEOUS EDEMA AND CONTUSION OF THE LEFT HIP AND THIGH EXTENDING FROM THE LOW SACROILIAC JOINT TO JUST ABOVE THE KNEE WITH INTRAMUSCULAR EDEMA OF THE ATROPHIC VASTUS LATERALIS. NO WELL-FORMED HEM ATOMA OR FLUID COLLECTION.
[2019-09-19] MEDS: ASPIRIN 81 MG PO SCH (16:51)
--- NOTE | 2019-09-19 16:57 | PN ---
PROGRESS NOTE DATE OF SERVICE: 09/19/2019. REASON FOR FOLLOWUP: 1. Bilateral lower extremity wounds. 2. Influenza. INTERVAL HISTORY: The patient is currently afebrile, has been breathing comfortably. However, the patient is complaining of more wheezing. Denies having any chest pain or cough. No abdominal pain or diarrhea. PHYSICAL EXAMINATION: Blood pressure 100/49 with a pulse of 92, temperature 98.3. He is 100% on room air. General description is an elderly male up in the chair in no distress. RESPIRATORY SYSTEM: Unlabored breathing. Bilateral expiratory wheeze. HEART: S1, S2. Regular rate and rhythm. WITH ABDOMEN: Soft. No tenderness. Legs are currently wrapped up. No obvious drainage on the dressing. LABS: Hemoglobin 9.1, white count 5.5. BUN 33, creatinine 1.09. DIAGNOSTIC IMPRESSION AND PLAN: 1. Patient with bilateral lower extremity wounds with no evidence of any cellulitis. Local care to continue with dry Aquacel Silver dressing and Tex wrap. 2. Acute influenza. Continue with Tamiflu to finish a 5-day course of therapy. Continue with supportive care. MMODL / IJN: [id number] /
[2019-09-19 17:08] LABS: Glucose,Whole Blood 125 mg/dL (75-99)
[2019-09-19 20:03] LABS: Glucose,Whole Blood 121 mg/dL (75-99)
[2019-09-19] MEDS: MELATONIN 3 MG TABLET PO SCH (20:39)
[2019-09-19] MEDS: ACETAMINOPHEN TAB 500 MG TAB PO PRN (21:20)
[2019-09-20] MEDS: LEVOTHYROXINE 25 MCG TAB PO SCH (04:31)
[2019-09-20 06:07] LABS: Glucose,Whole Blood 113 mg/dL (75-99)
[2019-09-20] MEDS: PANTOPRAZOLE 40 MG TABLET PO SCH (06:07)
[2019-09-20] MEDS: TAMSULOSIN 0.4 MG CAP.ER.24H PO SCH ×2 (06:07→17:15)
[2019-09-20] MEDS: MIDODRINE 5 MG TAB PO SCH ×3 (06:07→17:15)
[2019-09-20] MEDS: SPIRONOLACTONE 25 MG TAB PO SCH (06:07)
[2019-09-20] MEDS: INSULIN ASPART (NovoLOG) 100 UNIT/ML VIAL SQ SCH ×5 (06:10→20:15)
[2019-09-20] MEDS: guaiFENesin 600 MG TABLET.ER PO SCH ×2 (08:14→20:15)
[2019-09-20] MEDS: METOPROLOL TARTRATE 50 MG TAB PO SCH ×3 (08:14→20:15)
[2019-09-20] MEDS: APIXABAN 5 MG TAB PO SCH ×2 (08:14→20:15)
[2019-09-20] MEDS: OSELTAMIVIR 75 MG CAP PO SCH ×2 (08:14→20:15)
[2019-09-20] MEDS: AMIODARONE 200 MG TAB PO SCH ×2 (08:14→20:15)
[2019-09-20] MEDS: HYDROcodone/APAP 5-325MG 1 EACH TAB PO PRN ×2 (08:14→22:12)
[2019-09-20] MEDS: FUROSEMIDE 40 MG TAB PO SCH (08:14)
[2019-09-20] MEDS: SENNOSIDES-DOCUSATE SODIUM 1 EACH TAB PO SCH (08:15)
[2019-09-20] MEDS: BUDESONIDE 0.5 MG/2 ML NEBU INHALATION SCH ×2 (08:50→20:50)
[2019-09-20] MEDS: IPRATROPIUM 0.5 MG/2.5 ML NEBU INHALATION SCH ×4 (08:51→20:50)
[2019-09-20] MEDS ORDERED: FUROSEMIDE 10 MG/ML 4 ML VIAL IV STA (10:31)
--- NOTE | 2019-09-20 10:54 | P.PN ---
Subjective Progress Note Date: 09/20/19 This is an 84-year-old male patient of Dr. Mosqueda with past medical history of paroxysmal atrial fibrillation status post cardiac ablation in 2007 as well as cardioversions a couple times since then, hypertension, osteoarthritis, obstructive sleep apnea but not currently on a CPAP, psoriasis, hard of hearing. Patient was treated in July at [facility] for heart failure and that that time also developed hematoma to the left hip. Patient was hospitalized on August 14 through August 25 at [facility] at which time he was treated for A. fib with RVR status post BRIAN and electrocardioversion, chronic lower extremity vascular ulcers and edema with cellulitis and acute on chronic systolic and diastolic heart failure. Patient had been started on midodrine due to hypotension. Patient was discharged to [facility] and patient states that he left the long-term and has been home for 3 days. Patient has chronic weakness in his left lower extremity as well as pain in the left calf area due to wound. Patient apparently was in the shower had a mechanical fall twisting his left knee and was unable to bear weight following this. He has had a previous knee replacement on the left by Dr. Mcneal and a hip replacement by Dr. Starkey. Currently, patient denies any lightheadedness or dizziness, no shortness of breath, no palpitations. Patient came into [facility] emergency center for evaluation. He was afebrile, blood pressure 107/66, pulse ox 100% on room air, heart rate 66. WBC 9.4, hemoglobin 10.8, platelet count 191. Sodium 135, potassium 4.3, chloride 103, CO2 25, BUN 44 and creatinine 1.26, blood sugar 101, CK 176, C- reactive protein 48.5, proBNP 1920, cortisol level VIII. EKG was atrial fibrillation heart rate of 133 with no acute changes. Left knee, tib-fib, foot and ankle x-ray showed no acute fracture or dislocation. CAT scan of the left lower extremity shows no acute fracture or dislocation from the knee to the toes. [facility] floor and consults requested for Dr. Kilpatrick, orthopedics and cardiology. 09/13: Patient's heart rate remained elevated up to 138 and cardiology as increased metoprolol to 50 mg 3 times daily. 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 Patient has been afebrile, blood pressure 114/73, pulse ox 95% on room air. Repeat blood work reveals Lisa BC 11.5, hemoglobin 9, BUN 29 creatinine 0.84. Regarding the left elbow, ultrasound did not show any evidence of quadriceps rupture. Orthopedics has done aspiration and there was no fluid in the knee. A brace has been ordered and patient may be weightbearing as tolerated with walker and brace. Solu-Cortef will be discontinued and patient started on Florinef. 09/14: Patient is afebrile, heart rate has been running in the low 100s this morning 120s, blood pressure 110/76, pulse ox 98% on room air. This morning, patient has been started on amiodarone 400 mg twice daily by cardiology. Patient remains on Lopressor 50 mg 3 times daily as well as eliquis. Patient denies any symptoms. He states he did have some shortness of breath last evening. Blood pressure is improved with Florinef. He is planning for local wound care today and ambulate with physical therapy. Lower extremity edema is improving. 09/15: Patient remains in A. fib RVR with heart rates up to 120s but improving.. Blood pressure 134/74, pulse ox 97% on room air, afebrile. Hemoglobin 9.2, BUN 23 and creatinine 0.99, electrolytes normal. Blood sugar 101. Chest x-ray reveals persistently enlarged cardiomediastinal silhouette and tortuosity of both the ascending and descending thoracic aorta. Pulmonary nodule not well visualized. Patient received 1 dose of Lasix 40 mg today. Patient states that he was up coughing all night. He is complaining of right lateral rib pain secondary to coughing. states that he has not had a bowel movement since Saturday. Senna has been changed to scheduled and milk of magnesia as needed 09/16: Patient has temperature max 100.2, heart rate 121, blood pressure 115/68, pulse ox 96% on room air. Patient started complaining of runny nose and congestion yesterday afternoon. Influenza testing came back positive for influenza A. Chest x-ray shows no focal consolidation. Redemonstration of an enlarged cardiac mediastinal. Patient is well known thoracic aortic aneurysm and known pulmonary nodules. Repeat blood work reveals WBC 6.7, hemoglobin 8.7, platelet count 176. Sodium 136, potassium 3.9, chloride 102, CO2 26, BUN 22 and creatinine 0.98. Consult added for Dr. Silva regarding influenza. Mucinex, Atrovent nebulizer treatments and Tamiflu added. 09/17: Patient continues to have cough but fever and chills have resolved. He states he had some nausea and vomiting yesterday but this is improved. Patient is eating 100% of his meals today. Patient is complaining of left hip pain today and apparently he had a fall on Saturday. X-ray will be obtained. Consult with Dr. Silva has been discontinued as patient is clinically stable. Patient remains in atrial fibrillation but today rate is controlled. Anticipate possible discharge over the weekend if patient remains stable. 09/18: Patient slept in a chair last night due to comfort. Patient states that it is easy for him to get up from the chair and utilize the urine all compared to in the bed. Patient continues to have discomfort to the left lower extremity. Complaining of pain and hematoma to the medial aspects of the upper left lower extremity. Patient utilizes a brace when ambulatory with a walker. However his new brace will not be in for 1 week. Patient heart rate remains to be tachycardic. 09/19: Patient is sitting up in chair at this time. He is complaining of cough which started yesterday. It is dry cough. Patient denies any sputum. Patient denies any difficulty breathing. CT of the hip and femur is negative for fracture no hematoma noted, subcutaneous edema and contusion of the left hip and thigh extending from the low sacroiliac joint to just above the knee with intermuscular edema of the atrophic vastus lateralis. Patient is concerned ab out starting steroids because of the lower extremity weakness. Review of system Constitutional: Reports fatigue, Reports weakness, Denies chills, Denies fever, Denies poor appetite Ears, nose, mouth and throat: Denies dysphagia, Denies headache, Denies nasal congestion, Denies nasal discharge, Denies sore throat Cardiovascular: Reports leg edema increasing, Denies chest pain, Denies dyspnea on exertion, Denies edema, Denies lightheadedness, Denies palpitations, Denies shortness of breath, Denies syncope Respiratory: Reports cough, Denies cough with sputum, Denies dyspnea, Denies excessive sputum, Denies hemoptysis, Denies home oxygen, Denies respiratory infections, Denies wheezing Gastrointestinal: Denies abdominal pain, Denies constipation, Denies diarrhea, Denies loss of appetite, Denies nausea, Denies vomiting Genitourinary: Denies dysuria Musculoskeletal: Reports muscle weakness, Denies myalgias Musculoskeletal: reports left hip pain Integumentary: Reports lower extremity wounds, reports ecchymosis Denies pruritus, Denies rash Neurological: Denies change in mentation, Denies change in speech, Denies numbness, Denies seizures, Denies weakness Psychiatric: Denies anxiety, Denies depression Endocrine: Denies fatigue, Denies weight change Objective - Vital Signs Vital signs: Vital Signs Temp 97.7 F 09/20/19 08:00 Pulse 88 09/20/19 08:52 Resp 16 09/20/19 08:00 BP 108/53 09/20/19 08:00 Pulse Ox 96 09/20/19 08:00 Intake & Output 09/19/19 09/20/19 09/20/19 18:59 06:59 18:59 Intake Total 1200 240 Output Total 300 525 200 Balance 900 -525 40 Weight 110.8 kg 110 kg Intake: Oral 1200 240 Output: Urine 300 525 200 Other: Voiding Method Bedside Commode Bedside Commode Bedside Commode Urinal Urinal Urinal # Voids 1 1 0 # Bowel Movements 1 1 - Exam Gen: This is an 84-year-old male. He is sitting up in chair and appears to be comfortable and in no acute distress. No respiratory distress is noted. HEENT: Head is atraumatic, normocephalic. Pupils equal, round. Sclerae is anicteric. NECK: Supple. No JVD. No lymphadenopathy. No thyromegaly. LUNGS: Decreased air flow .No wheezes, congestive cough, few scattered rhonchi. No intercostal retractions. HEART: Irregularly irregular rate and rhythm. Systolic ejection murmur. ABDOMEN: Soft. Bowel sounds are present. No masses. No tenderness. EXTREMITIES: Ecchymosis to medial aspect of upper portion of left lower extremity from greater trochanter extending to mid femur .Trace bilateral pedal edema but no involving thighs as well. No calf tenderness. Multiple lower extremity wounds. NEUROLOGICAL: Patient is awake, alert and oriented x3. Cranial nerves 2 through 12 are grossly intact. - Labs CBC & Chem 7: 09/19/19 05:50 09/19/19 05:50 Labs: Abnormal Lab Results - Last 24 Hours (Table) 09/19/19 09/19/19 09/19/19 Range/Units 12:30 17:07 20:03 POC Glucose (mg/dL) 126 H 125 H 121 H (75-99) mg/dL 09/20/19 Range/Units 06:06 POC Glucose (mg/dL) 113 H (75-99) mg/dL Assessment and Plan Plan: 1. Mechanical fall injuring left leg. Orthopedic consult appreciated. CAT scan of left femur and hip ordered. Related to ecchymosis. Ultrasound results noted above. X-ray of the pelvis was negative for fracture. X-ray of hip was negative for fracture 2. Chronic lower extremity vascular ulcers. Consult with Dr. Kilpatrick appreciated. Local wound care with Aquacel Ag dressing every 48 hours and Tex wrap for compression, left posterior leg wound Hydrofera Blue dressing not available, no need for systemic antibiotics. Lasix 40 mg 1. 3. Chronic persistent atrial fibrillation with A. fib RVR. Continue Lopressor 50 mg 3 times daily, amiodarone 400 mg twice daily, eliquis 5 mg twice daily. 4. Chronic hypotension. Continue midodrine. Lisinopril on hold 5. Chronic systolic heart failure. Continue Lasix 40 mg twice daily, Aldactone 25 mg daily, Lopressor 50 mg 3 times daily, lisinopril on hold due to hypotension. 5. Benign prostatic hypertrophy. Monitor for urinary retention. Continue Flomax 0.4 mg twice daily. 6. Hypothyroidism. Continue levothyroxine 25 g daily. 7. Adrenal insufficiency. Solu-cortef discontinued and patient started on Florinef with planned follow-up with Dr. Pereyra, mat sewer, as an outpatient. Florinef will be discontinued due to concern of increased edema to the thighs. 8. Chronic kidney disease stage II. Avoid nephrotoxic agents. 9. Anemia of chronic disease. 10. Obstructive sleep apnea. Patient will need to use CPAP. 11. GI prophylaxis. Protonix. 12. DVT prophylaxis. Eliquis. 13. Influenza A. Patient started on Tamiflu 75 mg every 12 hours for total of 10 doses. Mucinex, DuoNeb, Pulmicort, Tessalon Perles. 14. Cough. Repeat chest x-ray, Solu-Medrol 40 mg every 8 hours Discharge plan: Home with [facility] possible discharge on Saturday. PT and OT evaluations. Impression and plan of care have been directed as dictated by the signing physician. Darlene Aranda nurse practitioner acting as scribe for signing physician.
--- NOTE | 2019-09-20 11:19 | XR ---
EXAMINATION TYPE: XR chest 2V DATE OF EXAM: 09/20/2019 COMPARISON: 09/17/2019 TECHNIQUE: PA and lateral views submitted. HISTORY: Shortness of breath FINDINGS: The lungs are clear and there is no pneumothorax, pleural effusion, or focal pneumonia. Heart is en larged. There are subsegmental changes at both lung bases. Arthropathy of the shoulders. Degenerative change of the spine. IMPRESSION: 1. Basilar atelectasis favored over pneumonia correlate clinically. 2. Cardiomegaly.
[2019-09-20] MEDS: methylPREDNISolone SOD SUCCI 40 MG/ML 1 ML VIAL IV SCH ×3 (11:50→23:21)
[2019-09-20 11:57] LABS: Glucose,Whole Blood 128 mg/dL (75-99)
--- NOTE | 2019-09-20 12:12 | PN ---
PROGRESS NOTE DATE OF SERVICE: 09/20/2019 This patient we are following for atrial fibrillation with rapid ventricular response. The patient has a known history of coronary artery disease and chronic atrial fibrillation. The patient remains comfortable. He denies any significant shortness of breath. Blood pressure is 108/53 mmHg. Oxygen saturation is 96%. The heart rate now is in the range of 100-110. First and second heart sounds are heard. Lungs reveal bilateral scattered wheezing. The patient possibly has probably underlying acute bronchitis. A chest x-ray will be repeated. We will check the BNP level. I gave him one dose of IV Lasix 40 mg today. The patient's previous echocardiogram revealed an ejection fraction of 40-45%. MMODL / IJN: [id number] /
[2019-09-20 16:44] LABS: Glucose,Whole Blood 183 mg/dL (75-99)
[2019-09-20] MEDS: ASPIRIN 81 MG PO SCH (17:15)
[2019-09-20 20:09] LABS: Glucose,Whole Blood 209 mg/dL (75-99)
[2019-09-20] MEDS: MELATONIN 3 MG TABLET PO SCH (20:15)
[2019-09-20 21:02] VITALS: RESP 18
[2019-09-21 06:02] LABS: Glucose,Whole Blood 161 mg/dL (75-99)
[2019-09-21] MEDS: SPIRONOLACTONE 25 MG TAB PO SCH (06:07)
[2019-09-21] MEDS: INSULIN ASPART (NovoLOG) 100 UNIT/ML VIAL SQ SCH ×4 (06:08→21:15)
[2019-09-21] MEDS: PANTOPRAZOLE 40 MG TABLET PO SCH (06:08)
[2019-09-21] MEDS: TAMSULOSIN 0.4 MG CAP.ER.24H PO SCH ×2 (06:08→19:53)
[2019-09-21] MEDS: LEVOTHYROXINE 25 MCG TAB PO SCH (06:08)
[2019-09-21] MEDS: MIDODRINE 5 MG TAB PO SCH ×3 (06:08→18:18)
--- NOTE | 2019-09-21 08:43 | PN ---
PROGRESS NOTE DATE OF SERVICE: 09/20/2019 REASON FOR FOLLOW UP: 1. Bilateral lower extremity wound. 2. Acute infection. INTERVAL HISTORY: The patient is currently afebrile. He has been breathing comfortably. Denies having any chest pain. Occasional cough. No abdominal pain. Some pain to the left leg: No worsening wound. EXAMINATION: Patient blood pressure 110/65 with pulse of 111, temperature 98.2, he is 96% on room air. General description is an elderly male, up in the chair in no distress. RESPIRATORY SYSTEM: Unlabored breathing, comfortably: HEART: S1, S2. Regular rate and rhythm. ABDOMEN: Soft, no tenderness. LUNGS: Currently clear. ABDOMEN: No obvious change on the dressing. LABS: No new labs today. DIAGNOSTIC IMPRESSION AND PLAN: Patient with bilateral extremities wounds with no evidence of cellulitis. Patient currently covered with Tamiflu to continue to finish a course of therapy. X- ray completed this morning, was suggestive of atelectasis with pneumonia. Continue supportive care. MMODL / IJN: [id number] /
[2019-09-21] MEDS: BUDESONIDE 0.5 MG/2 ML NEBU INHALATION SCH (08:58)
[2019-09-21] MEDS: IPRATROPIUM 0.5 MG/2.5 ML NEBU INHALATION SCH ×4 (08:58→21:44)
[2019-09-21] MEDS: OSELTAMIVIR 75 MG CAP PO SCH ×2 (09:46→19:53)
[2019-09-21] MEDS: APIXABAN 5 MG TAB PO SCH ×2 (09:46→19:54)
[2019-09-21] MEDS: METOPROLOL TARTRATE 50 MG TAB PO SCH ×3 (09:46→19:54)
[2019-09-21] MEDS: FUROSEMIDE 40 MG TAB PO SCH (09:46)
[2019-09-21] MEDS: SENNOSIDES-DOCUSATE SODIUM 1 EACH TAB PO SCH (09:46)
[2019-09-21] MEDS: AMIODARONE 200 MG TAB PO SCH ×3 (09:46→19:53)
[2019-09-21] MEDS: methylPREDNISolone SOD SUCCI 40 MG/ML 1 ML VIAL IV SCH (09:47)
[2019-09-21] MEDS: guaiFENesin 600 MG TABLET.ER PO SCH ×2 (09:47→19:54)
--- NOTE | 2019-09-21 10:49 | P.PN ---
Subjective Progress Note Date: 09/21/19 This is a pleasant 84-year-old male past medical history significant for chronic persistent atrial fibrillation on long-term anticoagulation status post cardioversion was successful for only one week, systolic heart failure and hypotension. He follows in the office with Dr. Martinez. We have been asked to see in consultation for hypotension. He presented to the emergency department after having a fall in the shower. On 08/19/2019 he underwent a BRIAN cardioversion that was initially successful however the states it only lasted for about one week. Most recent echocardiogram obtained in August 2019 revealed impaired LV systolic function with ejection fraction 40-45%. At the time of my examination this morning, patient overall was feeling well, his heart rate continues to be in the 120 to 130 range quite consistently, it did go up into the 170 range briefly after he was up to the bathroom through the night last night. Patient did complain of an episode of chest pressure with associated diaphoresis last night, he states that he had a productive cough following that the symptoms seemed to subside. Patient was on 25 mg of metoprolol 3 times a day this morning, we will increase that dose to 50 3 times a day to optimize his heart rate control. White blood cell count 11.5, hemoglobin 9.0, platelet count 157. Sodium 137, potassium 4.9, BUN 29, creatinine 0.8. 09/15/2019 Patient seen and examined this morning, pain in his legs seems to be improving quite a bit. His heart rate continues to be in the 120 to 1:30 range. We will add oral amiodarone to his medication regime. Blood pressure 120/60 with a heart rate 07/28/1927, 98% on room air. White blood cell count 7.7, hemoglobin 8.5, platelet count 150. Sodium 138, potassium 3.5, BUN 28 and creatinine 0.9 09/16/2019 Patient was seen and examined this morning, he was initiated on amiodarone and at present his heart rate is still in the 120 range but it is noticed that the patient's heart rate does drop to 100- 104 on occasion. On examination, the patient does sound more wheezy today, is complaining of a mild hacky cough today. Repeat chest x-ray has been requested for today, we will also give the patient one time dose of 40 mg of IV Lasix. 09/21/2019 Patient seen and examined this morning, doing well overall. Heart rate maintaining in the mid-90s to low 100s. Objective - Vital Signs Vital signs: Vital Signs Temp 98.1 F 09/21/19 03:53 Pulse 107 H 09/21/19 09:13 Resp 18 09/21/19 03:53 BP 105/64 09/21/19 03:53 Pulse Ox 96 09/21/19 03:53 Intake & Output 09/20/19 09/21/19 09/21/19 18:59 06:59 18:59 Intake Total 360 328 Output Total 800 610 Balance -440 -610 328 Weight 110.3 kg Intake: Oral 360 328 Output: Urine 800 610 Other: Voiding Method Bedside Commode Bedside Commode Urinal Urinal # Voids 0 1 - Exam PHYSICAL EXAMINATION: HEENT: Head is atraumatic, normocephalic. Pupils equal, round. Neck is supple. There is no elevated jugular venous pressure. HEART EXAMINATION: Heart sounds irregularly irregular, S1 and S2 with a systolic ejection murmur at the left sternal border, tachycardia noted. CHEST EXAMINATION: Lungs reveal fine scattered wheezing throughout . No chest wall tenderness is noted on palpation or with deep breathing. ABDOMEN: Soft, nontender. Bowel sounds are heard. No organomegaly noted. EXTREMITIES: 2+ peripheral pulses with trace lower extremity edema with Tex wraps in place bilaterally. NEUROLOGIC patient is awake, alert and oriented x3. - Labs CBC & Chem 7: 09/19/19 05:50 09/19/19 05:50 Labs: Abnormal Lab Results - Last 24 Hours (Table) 09/20/19 09/20/19 09/20/19 Range/Units 11:32 16:40 20:08 POC Glucose (mg/dL) 128 H 183 H 209 H (75-99) mg/dL 09/21/19 Range/Units 06:01 POC Glucose (mg/dL) 161 H (75-99) mg/dL Assessment and Plan Plan: Assessment and Plan: #1 Atrial fibrillation with rapid ventricular response, chronic persistent #2 Chronic systolic heart failure, ejection fraction 40-45%. Clinically euvolemic. #3 History of hypotension maintained on midodrine #4 Valvular heart disease Plan Patient overall is doing much better today. From cardiology's perspective he may be discharged once cleared by primary. We will make him a follow-up appointment in the office post discharge. We will taper down his amiodarone on discharge to 200 mg one tablet by mouth 3 times a day. DNP note has been reviewed, I agree with a documented findings and plan of care. Patient was seen and examined.
[2019-09-21] MEDS ORDERED: BUDESONIDE 1 MG/2 ML NEBU INHALATION STA (11:35)
[2019-09-21 12:31] LABS: Glucose,Whole Blood 214 mg/dL (75-99)
--- NOTE | 2019-09-21 13:01 | P.PN ---
Subjective Progress Note Date: 09/21/19 This is an 84-year-old male patient of Dr. Mosqueda with past medical history of paroxysmal atrial fibrillation status post cardiac ablation in 2007 as well as cardioversions a couple times since then, hypertension, osteoarthritis, obstructive sleep apnea but not currently on a CPAP, psoriasis, hard of hearing. Patient was treated in July at [facility] for heart failure and that that time also developed hematoma to the left hip. Patient was hospitalized on August 14 through August 25 at [facility] at which time he was treated for A. fib with RVR status post BRIAN and electrocardioversion, chronic lower extremity vascular ulcers and edema with cellulitis and acute on chronic systolic and diastolic heart failure. Patient had been started on midodrine due to hypotension. Patient was discharged to [facility] and patient states that he left the shelter and has been home for 3 days. Patient has chronic weakness in his left lower extremity as well as pain in the left calf area due to wound. Patient apparently was in the shower had a mechanical fall twisting his left knee and was unable to bear weight following this. He has had a previous knee replacement on the left by Dr. Mcneal and a hip replacement by Dr. Starkey. Currently, patient denies any lightheadedness or dizziness, no shortness of breath, no palpitations. Patient came into [facility] emergency center for evaluation. He was afebrile, blood pressure 107/66, pulse ox 100% on room air, heart rate 66. WBC 9.4, hemoglobin 10.8, platelet count 191. Sodium 135, potassium 4.3, chloride 103, CO2 25, BUN 44 and creatinine 1.26, blood sugar 101, CK 176, C- reactive protein 48.5, proBNP 1920, cortisol level VIII. EKG was atrial fibrillation heart rate of 133 with no acute changes. Left knee, tib-fib, foot and ankle x-ray showed no acute fracture or dislocation. CAT scan of the left lower extremity shows no acute fracture or dislocation from the knee to the toes. Patient admitted to the [facility] floor and consults requested for Dr. Kilpatrick, orthopedics and cardiology. 09/13: Patient's heart rate remained elevated up to 138 and cardiology as increased metoprolol to 50 mg 3 times daily. icing mixer atrial fibri llation. Patient has been afebrile, blood pressure 114/73, pulse ox 95% on room air. Repeat blood work reveals Lisa BC 11.5, hemoglobin 9, BUN 29 creatinine 0.84. Regarding the left elbow, ultrasound did not show any evidence of quadriceps rupture. Orthopedics has done aspiration and there was no fluid in the knee. A brace has been ordered and patient may be weightbearing as tolerated with walker and brace. Solu-Cortef will be discontinued and patient started on Florinef. 09/14: Patient is afebrile, heart rate has been running in the low 100s this morning 120s, blood pressure 110/76, pulse ox 98% on room air. This morning, patient has been started on amiodarone 400 mg twice daily by cardiology. Patient remains on Lopressor 50 mg 3 times daily as well as eliquis. Patient denies any symptoms. He states he did have some shortness of breath last evening. Blood pressure is improved with Florinef. He is planning for local wound care today and ambulate with physical therapy. Lower extremity edema is improving. 09/15: Patient remains in A. fib RVR with heart rates up to 120s but improving.. Blood pressure 134/74, pulse ox 97% on room air, afebrile. Hemoglobin 9.2, BUN 23 and creatinine 0.99, electrolytes normal. Blood sugar 101. Chest x-ray reveals persistently enlarged cardiomediastinal silhouette and tortuosity of both the ascending and descending thoracic aorta. Pulmonary nodule not well visualized. Patient received 1 dose of Lasix 40 mg today. Patient states that he was up coughing all night. He is complaining of right lateral rib pain secondary to coughing. states that he has not had a bowel movement since Saturday. Senna has been changed to scheduled and milk of magnesia as needed 09/16: Patient has temperature max 100.2, heart rate 121, blood pressure 115/68, pulse ox 96% on room air. Patient started complaining of runny nose and congest ion yesterday afternoon. Influenza testing came back positive for influenza A. Chest x-ray shows no focal consolidation. Redemonstration of an enlarged cardiac mediastinal. Patient is well known thoracic aortic aneurysm and known pulmonary nodules. Repeat blood work reveals WBC 6.7, hemoglobin 8.7, platelet count 176. Sodium 136, potassium 3.9, chloride 102, CO2 26, BUN 22 and creatinine 0.98. Consult added for Dr. Silva regarding influenza. Mucinex, Atrovent nebulizer treatments and Tamiflu added. 09/17: Patient continues to have cough but fever and chills have resolved. He states he had some nausea and vomiting yesterday but this is improved. Patient is eating 100% of his meals today. Patient is complaining of left hip pain today and apparently he had a fall on Saturday. X-ray will be obtained. Consult with Dr. Silva has been discontinued as patient is clinically stable. Patient remains in atrial fibrillation but today rate is controlled. Anticipate possible discharge over the weekend if patient remains stable. 09/18: Patient slept in a chair last night due to comfort. Patient states that it is easy for him to get up from the chair and utilize the urine all compared to in the bed. Patient continues to have discomfort to the left lower extremity. Complaining of pain and hematoma to the medial aspects of the upper left lower extremity. Patient utilizes a brace when ambulatory with a walker. However his new brace will not be in for 1 week. Patient heart rate remains to be tachycardic. 09/19: Patient is sitting up in chair at this time. He is complaining of cough which started yesterday. It is dry cough. Patient denies any sputum. Patient denies any difficulty breathing. CT of the hip and femur is negative for fracture no hematoma noted, subcutaneous edema and contusion of the left hip and thigh extending from the low sacroiliac joint to just above the knee with intermuscular edema of the atrophic vastus lateralis. Patient is concerned a bout starting steroids because of the lower extremity weakness. 09/20: Patient was started on Solu-Medrol for cough yesterday. Chest x-ray shows no acute findings. There is atelectasis in incentive spirometry in place. Patient is having wheezing today and does not wish to continue on any steroids. We will increase Pulmicort to 1 mg twice daily. Cardiology has changed amiodarone to 200 mg 3 times daily which will be tapered as an outpatient in the office. Patient will be completing his Tamiflu course tomorrow morning. Patient will be monitored overnight and possible discharge tomorrow. Patient has been afebrile, heart rate 107, blood pressure 113/82, pulse ox 95% on room air. Objective - Vital Signs Vital signs: Vital Signs Temp 98.1 F 09/21/19 03:53 Pulse 107 H 09/21/19 09:13 Resp 18 09/21/19 08:00 BP 113/82 09/21/19 08:00 Pulse Ox 95 09/21/19 08:00 Intake & Output 09/20/19 09/21/19 09/21/19 18:59 06:59 18:59 Intake Total 360 328 Output Total 800 610 200 Balance -440 -610 128 Weight 110.3 kg Intake: Oral 360 328 Output: Urine 800 610 200 Other: Voiding Method Bedside Commode Bedside Commode Urinal Urinal # Voids 0 1 - Exam Review of Systems Constitutional: Reports fatigue, Reports weakness, Denies chills, Denies fever, Denies poor appetite Ears, nose, mouth and throat: Denies dysphagia, Denies headache, Denies nasal congestion, Denies nasal discharge, Denies sore throat Cardiovascular: Reports leg edema increasing, Denies chest pain, Denies dyspnea on exertion, Denies edema, Denies lightheadedness, Denies palpitations, Denies shortness of breath, Denies syncope Respiratory: Reports cough, Denies cough with sputum, Denies dyspnea, Denies excessive sputum, Denies hemoptysis, Denies home oxygen, Denies respiratory infections, reports wheezing Gastrointestinal: Denies abdominal pain, Denies constipation, Denies diarrhea, Denies loss of appetite, Denies nausea, Denies vomiting Genitourinary: Denies dysuria Musculoskeletal: Reports muscle weakness, Denies myalgias Musculoskeletal: reports left hip pain Integumentary: Reports lower extremity wounds, Denies pruritus, Denies rash Neurological: Denies change in mentation, Denies change in speech, Denies numbness, Denies seizures, Denies weakness Psychiatric: Denies anxiety, Denies depression Endocrine: Denies fatigue, Denies weight change Gen: This is an 84-year-old male. He is sitting up in chair and appears to be comfortable and in no acute distress. No respiratory distress is noted. HEENT: Head is atraumatic, normocephalic. Pupils equal, round. Sclerae is anicteric. NECK: Supple. No JVD. No lymphadenopathy. No thyromegaly. LUNGS: Clear to auscultation. Expiratory wheezes, congestive cough, few scattered rhonchi. No intercostal retractions. HEART: Irregularly irregular rate and rhythm. Systolic ejection murmur. ABDOMEN: Soft. Bowel sounds are present. No masses. No tenderness. EXTREMITIES: Trace bilateral pedal edema but no involving thighs as well. No calf tenderness. Multiple lower extremity wounds. NEUROLOGICAL: Patient is awake, alert and oriented x3. Cranial nerves 2 through 12 are grossly intact. - Labs CBC & Chem 7: 09/19/19 05:50 09/19/19 05:50 Labs: Abnormal Lab Results - Last 24 Hours (Table) 09/20/19 09/20/19 09/20/19 Range/Units 11:32 16:40 20:08 POC Glucose (mg/dL) 128 H 183 H 209 H (75-99) mg/dL 09/21/19 Range/Units 06:01 POC Glucose (mg/dL) 161 H (75-99) mg/dL Assessment and Plan Plan: 1. Mechanical fall injuring left leg. Orthopedic consult appreciated. 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 X-ray of the pelvis was also ordered by orthopedics, negative for fracture. Patient is complaining of left hip pain and x-ray will be ordered. 2. Chronic lower extremity vascular ulcers. Consult with Dr. Kilpatrick appreciated. Local wound care with Aquacel Ag dressing every 48 hours and Tex wrap for compression, left posterior leg wound Hydrofera Blue dressing not available, no need for systemic antibiotics. Lasix 40 mg 1. 3. Chronic persistent atrial fibrillation with A. fib RVR. Continue Lopressor 50 mg 3 times daily, amiodarone 400 mg twice daily, eliquis 5 mg twice daily. 4. Chronic hypotension. Continue midodrine. Lisinopril on hold 5. Chronic systolic heart failure. Continue Lasix 40 mg twice daily, Aldactone 25 mg daily, Lopressor 50 mg 3 times daily, lisinopril on hold due to hypotension. 5. Benign prostatic hypertrophy. Monitor for urinary retention. Continue Flomax 0.4 mg twice daily. 6. Hypothyroidism. Continue levothyroxine 25 g daily. 7. Adrenal insufficiency. Solu-cortef discontinued and patient started on Florinef with planned follow-up with Dr. 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 Florinef will be discontinued due to concern of increased edema to the thighs. 8. Chronic kidney disease stage II. Avoid nephrotoxic agents. 9. Anemia of chronic disease. 10. Obstructive sleep apnea. Patient will need to use CPAP. 11. GI prophylaxis. Protonix. 12. DVT prophylaxis. Eliquis. 13. Influenza A. Patient started on Tamiflu 75 mg every 12 hours for total of 10 doses. Mucinex, DuoNeb, Pulmicort, Tessalon Perles. Discharge plan: Home with [facility] on Saturday. PT and OT evaluations. Impression and plan of care have been directed as dictated by the signing physician. Urmila Carey nurse practitioner acting as scribe for signing physician.
[2019-09-21 17:31] LABS: Glucose,Whole Blood 141 mg/dL (75-99)
[2019-09-21] MEDS: HYDROcodone/APAP 5-325MG 1 EACH TAB PO PRN (19:53)
[2019-09-21] MEDS: MELATONIN 3 MG TABLET PO SCH (19:54)
[2019-09-21] MEDS: ASPIRIN 81 MG PO SCH (19:54)
[2019-09-21 20:51] LABS: Glucose,Whole Blood 147 mg/dL (75-99)
--- NOTE | 2019-09-21 22:23 | PN ---
PROGRESS NOTE DATE OF SERVICE: 09/21/2019 REASON FOR FOLLOWUP VISIT: 1. Bilateral lower extremity wound. 2. Acute influenza. INTERVAL HISTORY: The patient is currently afebrile, has been breathing more comfortably. Denies any chest pain. Occasional cough. No abdominal pain and no pain to the lower extremity. PHYSICAL EXAMINATION: Blood pressure 119/76, pulse of 121, temperature 98.1. He is 95% on room air. General description is an elderly male up in the chair in no distress. Respiratory system: Unlabored breathing, decreased intensity in the breath sounds in the base, with no wheeze. Heart S1, S2. Regular rate and rhythm. Abdomen soft, no tenderness. The left leg wound is almost healed up. No redness or any drainage. DIAGNOSTIC IMPRESSION AND PLAN: 1. Patient with bilateral lower extremity wounds. No evidence of any cellulitis. Left lower leg is almost healed up. Recommend Tex wrap to keep the swelling down. 2. Acute influenza to finish a course of oral Tamiflu. MMODL / IJN: [id number] /
[2019-09-22 06:42] LABS: Glucose,Whole Blood 181 mg/dL (75-99)
[2019-09-22] MEDS: MIDODRINE 5 MG TAB PO SCH ×2 (06:47→12:20)
[2019-09-22] MEDS: PANTOPRAZOLE 40 MG TABLET PO SCH (06:47)
[2019-09-22] MEDS: LEVOTHYROXINE 25 MCG TAB PO SCH (06:47)
[2019-09-22] MEDS: INSULIN ASPART (NovoLOG) 100 UNIT/ML VIAL SQ SCH ×2 (06:47→12:09)
[2019-09-22] MEDS: SPIRONOLACTONE 25 MG TAB PO SCH (06:47)
[2019-09-22] MEDS: TAMSULOSIN 0.4 MG CAP.ER.24H PO SCH (06:47)
[2019-09-22] MEDS: IPRATROPIUM 0.5 MG/2.5 ML NEBU INHALATION SCH ×2 (09:06→12:05)
[2019-09-22] MEDS: FUROSEMIDE 40 MG TAB PO SCH (09:29)
[2019-09-22] MEDS: OSELTAMIVIR 75 MG CAP PO SCH (09:29)
[2019-09-22] MEDS: guaiFENesin 600 MG TABLET.ER PO SCH (09:29)
[2019-09-22] MEDS: AMIODARONE 200 MG TAB PO SCH (09:29)
[2019-09-22] MEDS: METOPROLOL TARTRATE 50 MG TAB PO SCH (09:29)
[2019-09-22] MEDS: APIXABAN 5 MG TAB PO SCH (09:29)
[2019-09-22] MEDS: SENNOSIDES-DOCUSATE SODIUM 1 EACH TAB PO SCH (09:29)
[2019-09-22 11:03] VITALS: BP 116/63; TEMP 97.7
[2019-09-22 11:56] LABS: Glucose,Whole Blood 113 mg/dL (75-99)
[2019-09-22 12:07] VITALS: PULSE 102
--- NOTE | 2019-09-22 14:01 | PN ---
PROGRESS NOTE DATE OF SERVICE: 09/22/2019 REASON FOR FOLLOWUP VISIT: 1. Bilateral lower extremity wound. 2. Acute influenza. INTERIM HISTORY: The patient is currently afebrile. He was seen on rounds early this afternoon. The patient denies having any chest pain, no shortness of breath or cough. No nausea, vomiting. No pain to the lower extremity. PHYSICAL EXAMINATION: Blood pressure 116/63 with a pulse of 107, temperature 97.7, he is 99% on room air. General description is an elderly male, up in the chair in no distress. RESPIRATORY SYSTEM: Unlabored breathing, clear to auscultation anteriorly. HEART: S1, S2. Regular rate and rhythm. ABDOMEN: Soft, no tenderness. LEGS: Legs are currently wrapped in dressing. LABS: No new labs have been obtained today. DIAGNOSTIC IMPRESSION AND PLAN: 1. Patient with bilateral lower extremity wound with no evidence of any cellulitis. Patient advised to continue with Etx wrap to the leg and to follow up in the [facility] next week. 2. Acute influenza adequately treated. MMODL / IJN: [id number] /
--- NOTE | 2019-09-22 15:33 | P.DS ---
Providers Date of admission: 09/12/19 13:06 Expected date of discharge: 09/22/19 Attending physician: Pinky Sal Consults: 09/12/19 13:08 Consult Physician Urgent Consulting Provider: [facility] Consult Reason/Comments: recent hypotension Do you want consulting provider notified?: Yes 09/12/19 17:15 Consult Physician Routine Consulting Provider: Lali Kilpatrick Consult Reason/Comments: Leg wounds; healing as previously seen and treated Do you want consulting provider notified?: Already Contacted 09/17/19 13:23 Consult Physician Routine Consulting Provider: Brittany Silva Consult Reason/Comments: influenza Do you want consulting provider notified?: Yes [facility]: This is an 84-year-old male patient of Dr. Mosqueda with past medical history of paroxysmal atrial fibrillation status post cardiac ablation in 2007 as well as cardioversions a couple times since then, hypertension, osteoarthritis, obstructive sleep apnea but not currently on a CPAP, psoriasis, hard of hearing. Patient was treated in July at [facility] for heart failure and that that time also developed hematoma to the left hip. Patient was hospitalized on August 14 through August 25 at [facility] at which time he was treated for A. fib with RVR status post BRIAN and electrocardioversion, chronic lower extremity vascular ulcers and edema with cellulitis and acute on chronic systolic and diastolic heart failure. Patient had been started on midodrine due to hypotension. Patient was discharged to [facility] and patient states that he left the jail and has been home for 3 days. Patient has chronic weakness in his left lower extremity as well as pain in the left calf area due to wound. Patient apparently was in the shower had a mechanical fall twisting his left knee and was unable to bear weight following this. He has had a previous knee replacement on the left by Dr. Mcneal and a hip replacement by Dr. Starkey. Currently, patient denies any lightheadedness or dizziness, no shortness of breath, no palpitations. Patient came into [facility] emergency center for evaluation. He was afebrile, blood pressure 107/66, pulse ox 100% on room air, heart rate 66. WBC 9.4, hemoglobin 10.8, platelet count 191. Sodium 135, potassium 4.3, chloride 103, CO2 25, BUN 44 and creatinine 1.26, blood sugar 101, CK 176, C- reactive protein 48.5, proBNP 1920, cortisol level VIII. EKG was atrial fibrillation heart rate of 133 with no acute changes. Left knee, tib-fib, foot and ankle x-ray showed no acute fracture or dislocation. CAT scan of the left lower extremity shows no acute fracture or dislocation from the knee to the toes. Patient admitted to the [facility] floor and consults requested for Dr. Kilpatrick, orthopedics and cardiology. 09/13: Patient's heart rate remained elevated up to 138 and cardiology as increas ed metoprolol to 50 mg 3 times daily. nurse monitoring atrial fibrillation. Patient has been afebrile, blood pressure 114/73, pulse ox 95% on room air. Repeat blood work reveals Lisa BC 11.5, hemoglobin 9, BUN 29 creatinine 0.84. Regarding the left elbow, ultrasound did not show any evidence of quadriceps rupture. Orthopedics has done aspiration and there was no fluid in the knee. A brace has been ordered and patient may be weightbearing as tolerated with walker and brace. Solu-Cortef will be discontinued and patient started on Florinef. 09/14: Patient is afebrile, heart rate has been running in the low 100s this morning 120s, blood pressure 110/76, pulse ox 98% on room air. This morning, patient has been started on amiodarone 400 mg twice daily by cardiology. Patient remains on Lopressor 50 mg 3 times daily as well as eliquis. Patient denies any symptoms. He states he did have some shortness of breath last evening. Blood pressure is improved with Florinef. He is planning for local wound care today and ambulate with physical therapy. Lower extremity edema is improving. 09/15: Patient remains in A. fib RVR with heart rates up to 120s but improving.. Blood pressure 134/74, pulse ox 97% on room air, afebrile. Hemoglobin 9.2, BUN 23 and creatinine 0.99, electrolytes normal. Blood sugar 101. Chest x-ray reveals persistently enlarged cardiomediastinal silhouette and tortuosity of both the ascending and descending thoracic aorta. Pulmonary nodule not well visualized. Patient received 1 dose of Lasix 40 mg today. Patient states that he was up coughing all night. He is complaining of right lateral rib pain secondary to coughing. states that he has not had a bowel movement since Saturday. Senna has been changed to scheduled and milk of magnesia as needed 09/16: Patient has temperature max 100.2, heart rate 121, blood pressure 115/68, pulse ox 96% on room air. Patient started complaining of runny nose and congestion yesterday afternoon. Influenza testing came back positive for influenza A. Chest x-ray shows no focal consolidation. Redemonstration of an enlarged cardiac mediastinal. Patient is well known thoracic aortic aneurysm and known pulmonary nodules. Repeat blood work reveals WBC 6.7, hemoglobin 8.7, platelet count 176. Sodium 136, potassium 3.9, chloride 102, CO2 26, BUN 22 and creatinine 0.98. Consult added for Dr. Silva regarding influenza. Mucinex, Atrovent nebulizer treatments and Tamiflu added. 09/17: Patient continues to have cough but fever and chills have resolved. He states he had some nausea and vomiting yesterday but this is improved. Patient is eating 100% of his meals today. Patient is complaining of left hip pain today and apparently he had a fall on Saturday. X-ray will be obtained. Consult with Dr. Silva has been discontinued as patient is clinically stable. Patient remains in atrial fibrillation but today rate is controlled. Anticipate possible discharge over the weekend if patient remains stable. 09/18: Patient slept in a chair last night due to comfort. Patient states that it is easy for him to get up from the chair and utilize the urine all compared to in the bed. Patient continues to have discomfort to the left lower extremity. Complaining of pain and hematoma to the medial aspects of the upper left lower extremity. Patient utilizes a brace when ambulatory with a walker. However his new brace will not be in for 1 week. Patient heart rate remains to be tachycardic. 09/19: Patient is sitting up in chair at this time. He is complaining of cough which started yesterday. It is dry cough. Patient denies any sputum. Patient denies any difficulty breathing. CT of the hip and femur is negative for fracture no hematoma noted, subcutaneous edema and contusion of the left hip and thigh extending from the low sacroiliac joint to just above the knee with intermuscular edema of the atrophic vastus lateralis. Patient is concerned about starting steroids because of the lower extremity weakness. 09/20: Patient was started on Solu-Medrol for cough yesterday. Chest x-ray shows no acute findings. There is atelectasis in incentive spirometry in place. Patient is having wheezing today and does not wish to continue on any steroids. We will increase Pulmicort to 1 mg twice daily. Cardiology has changed amiodarone to 200 mg 3 times daily which will be tapered as an outpatient in the office. Patient will be completing his Tamiflu course tomorrow morning. Patient will be monitored overnight and possible discharge tomorrow. Patient has been afebrile, heart rate 107, blood pressure 113/82, pulse ox 95% on room air. 09/21: Patient has been afebrile, heart rate 102, blood pressure 116/63, pulse ox 99% on room air. Patient's breathing status has been stabilized. Lungs are clear to auscultation. No coughing or wheezing noted. Patient is agreeable for discharge home. He has completed his course of Tamiflu. He is expecting a new left knee immobilizer to be delivered to his home tomorrow. Patient will be discharged home today in stable condition. Discharge diagnoses: 1. Mechanical fall injuring left leg. 2. Chronic lower extremity vascular ulcers. 3. Chronic persistent atrial fibrillation with A. fib RVR. 4. Chronic hypotension. 5. Chronic systolic heart failure. 5. Benign prostatic hypertrophy. 6. Hypothyroidism. 7. Adrenal insufficiency. 8. Chronic kidney disease stage II. 9. Anemia of chronic kidney disease. 10. Obstructive sleep apnea. 11. Influenza A. This was most likely obtained while patient was at [facility] as it now has an outbreak of influenza a. Discharge plan: Home with [facility]. Impression and plan of care have been directed as dictated by the signing physician. Urmila Carey nurse practitioner acting as scribe for signing physician. Patient Condition at Discharge: Good Plan - Discharge Summary Discharge Rx Participant: Yes New Discharge Prescriptions: New Amiodarone [Cordarone] 200 mg PO TID #90 tab Metoprolol Tartrate [Lopressor] 50 mg PO TID #90 tab guaiFENesin [Mucinex] 1,200 mg PO Q12HR tablet.er Benzonatate [Tessalon Perles] 200 mg PO TID PRN #30 cap PRN Reason: Cough Continue Tamsulosin HCl [Flomax] 0.4 mg PO BID@0700,1900 Melatonin 6 mg PO HS@2100 Aspirin EC [Ecotrin Low Dose] 81 mg PO HS@1900 Acetaminophen Tab [Tylenol] 1,000 mg PO Q8H PRN PRN Reason: Pain Apixaban [Eliquis] 5 mg PO BID@0700,1900 Docusate [Colace] 100 mg PO BID PRN PRN Reason: Constipation Lansoprazole [Prevacid] 15 mg PO DAILY@0700 Midodrine [ProAmatine] 10 mg PO TID@0700,1100,1600 Spironolactone [Aldactone] 25 mg PO DAILY@0700 Levothyroxine Sodium [Synthroid] 25 mcg PO DAILY@0500 Changed Furosemide [Lasix] 40 mg PO DAILY #0 Discontinued Lisinopril [Zestril] 2.5 mg PO DAILY@0700 Furosemide [Lasix] 80 mg PO DAILY@0700 Metoprolol Tartrate [Lopressor] 25 mg PO BID@0700,1900 Discharge Medication List Tamsulosin HCl [Flomax] 0.4 mg PO BID@0700,1900 07/12/14 [History] Acetaminophen Tab [Tylenol] 1,000 mg PO Q8H PRN 08/14/19 [History] Aspirin EC [Ecotrin Low Dose] 81 mg PO HS@1900 08/14/19 [History] Melatonin 6 mg PO HS@2100 08/14/19 [History] Apixaban [Eliquis] 5 mg PO BID@0700,1900 09/12/19 [History] Docusate [Colace] 100 mg PO BID PRN 09/12/19 [History] Lansoprazole [Prevacid] 15 mg PO DAILY@0700 09/12/19 [History] Levothyroxine Sodium [Synthroid] 25 mcg PO DAILY@0500 09/12/19 [History] Midodrine [ProAmatine] 10 mg PO TID@0700,1100,1600 09/12/19 [History] Spironolactone [Aldactone] 25 mg PO DAILY@0700 09/12/19 [History] Amiodarone [Cordarone] 200 mg PO TID #90 tab 09/22/19 [Rx] Benzonatate [Tessalon Perles] 200 mg PO TID PRN #30 cap 09/22/19 [Rx] Furosemide [Lasix] 40 mg PO DAILY #0 09/22/19 [Rx] Metoprolol Tartrate [Lopressor] 50 mg PO TID #90 tab 09/22/19 [Rx] guaiFENesin [Mucinex] 1,200 mg PO Q12HR tablet.er 09/22/19 [Rx] Follow up Appointment(s)/Referral(s): Nehemiah Mosqueda DO [Primary Care Provider] - 1 Week (Line is busy. Please call to schedule appointment) Kj Aragon MD [STAFF PHYSICIAN] - 10/01/19 1:45 pm () Melissa Pereyra MD [STAFF PHYSICIAN] - 4 Weeks (adrenal insufficiency Please call to schedule appointment) Tiago Martinez MD [STAFF PHYSICIAN] - 09/25/19 11:00 am (Saturday -the appointment is cancelled as he is out of office.) Patient Instructions/Handouts: A-fib (Atrial Fibrillation) (DC), Influenza (DC) Activity/Diet/Wound Care/Special Instructions: brace ordered from [facility], they will have to special order-see Case [id number] will be delivered tomorrow May bear weight as tolerated in the brace. Discharge Disposition: HOME WITH HOME HEALTH SERVICES
== END 2019-09-22 13:17 | disposition home or self-care (01) | DRG 914 ==
LOC: EC 08:00 → 3SCARD 13:06
PROVIDERS: ADMIT Family Medicine; ATTEND Family Medicine
DX: S89.82XA Other specified injuries of left lower leg, initial encounter (principal); I13.0 Hypertensive heart and chronic kidney disease with heart failure and stage 1 through stage 4 chronic kidney disease, or unspecified chronic kidney disease; E27.40 Unspecified adrenocortical insufficiency; I48.19 Other persistent atrial fibrillation; I50.42 Chronic combined systolic (congestive) and diastolic (congestive) heart failure; I42.9 Cardiomyopathy, unspecified; J98.11 Atelectasis; M25.562 Pain in left knee; D63.1 Anemia in chronic kidney disease; E03.9 Hypothyroidism, unspecified; G47.33 Obstructive sleep apnea (adult) (pediatric); I25.10 Atherosclerotic heart disease of native coronary artery without angina pectoris; N18.2 Chronic kidney disease, stage 2 (mild); M19.90 Unspecified osteoarthritis, unspecified site; I83.019 Varicose veins of right lower extremity with ulcer of unspecified site; I83.029 Varicose veins of left lower extremity with ulcer of unspecified site; J10.1 Influenza due to other identified influenza virus with other respiratory manifestations; I71.2 Thoracic aortic aneurysm, without rupture; N40.0 Benign prostatic hyperplasia without lower urinary tract symptoms; I95.89 Other hypotension; I87.8 Other specified disorders of veins; W18.2XXA Fall in (into) shower or empty bathtub, initial encounter; Z96.643 Presence of artificial hip joint, bilateral; Z96.653 Presence of artificial knee joint, bilateral; Z79.899 Other long term (current) drug therapy; Z79.890 Hormone replacement therapy; Z79.82 Long term (current) use of aspirin; Z79.51 Long term (current) use of inhaled steroids; Z79.01 Long term (current) use of anticoagulants; Z88.6 Allergy status to analgesic agent; Z88.5 Allergy status to narcotic agent; Z88.0 Allergy status to penicillin; Z91.048 Other nonmedicinal substance allergy status; Z91.09 Other allergy status, other than to drugs and biological substances; Z98.890 Other specified postprocedural states; Z87.891 Personal history of nicotine dependence; Z82.0 Family history of epilepsy and other diseases of the nervous system; Z80.1 Family history of malignant neoplasm of trachea, bronchus and lung; Z80.51 Family history of malignant neoplasm of kidney; Z82.49 Family history of ischemic heart disease and other diseases of the circulatory system; Y93.E1 Activity, personal bathing and showering
CPT/HCPCS: 36415; 71045; 71046; 73502; 80048; 80053; 82533; 82550; 83735; 83880; 84145; 84443; 85025; 85027; 85610; 85730; 86140; 87502; 93005; 94640; 96360; 99285

== ENCOUNTER 2021-04-27 08:42 | Emergency (ER) | payer MEDICARE ==
[2021-04-27] MEDS ORDERED: SODIUM CHLORIDE 0.9% 1,000 ML IV STA (09:32)
--- NOTE | 2021-04-27 09:34 | ED ---
General Adult HPI - General Chief complaint: Abdominal Pain Stated complaint: Rt Side Pain Time Seen by Provider: 04/27/21 09:15 Source: patient, family, RN notes reviewed Mode of arrival: wheelchair Limitations: no limitations - History of Present Illness Initial comments: Patient is a pleasant 85-year-old male presenting to the emergency Department wi th complaints of right posterior flank discomfort. Onset of symptoms was over a week ago. Symptoms have been mild but waxing and waning. Discomfort became more severe last night. Discomfort is again mild at this time rated 3/10. Patient did have similar symptoms around 15 years ago associated with ureter problem. No associated nausea vomiting. No constipation or diarrhea. No fever. No hematuria or dysuria. - Related Data Home Medications Medication Instructions Recorded Confirmed Tamsulosin HCl [Flomax] 0.4 mg PO BID@0700,1900 07/12/14 09/12/19 Acetaminophen Tab [Tylenol] 1,000 mg PO Q8H PRN 08/14/19 09/12/19 Aspirin EC [Ecotrin Low Dose] 81 mg PO HS@1900 08/14/19 09/12/19 Melatonin 6 mg PO HS@2100 08/14/19 09/12/19 Apixaban [Eliquis] 5 mg PO BID@0700,1900 09/12/19 09/12/19 Docusate [Colace] 100 mg PO BID PRN 09/12/19 09/12/19 Lansoprazole [Prevacid] 15 mg PO DAILY@0700 09/12/19 09/12/19 Levothyroxine Sodium [Synthroid] 25 mcg PO DAILY@0500 09/12/19 09/12/19 Midodrine [ProAmatine] 10 mg PO TID@0700,1100,1600 09/12/19 09/12/19 Spironolactone [Aldactone] 25 mg PO DAILY@0700 09/12/19 09/12/19 Previous Rx's Medication Instructions Recorded Amiodarone [Cordarone] 200 mg PO TID #90 tab 09/22/19 Benzonatate [Tessalon Perles] 200 mg PO TID PRN #30 cap 09/22/19 Furosemide [Lasix] 40 mg PO DAILY #0 09/22/19 Metoprolol Tartrate [Lopressor] 50 mg PO TID #90 tab 09/22/19 guaiFENesin [Mucinex] 1,200 mg PO Q12HR tablet.er 09/22/19 Allergies Allergy/AdvReac Type Severity Reaction Status Date / Time isosorbide mononitrate Allergy Unknown Verified 04/27/21 11:45 [From Imdur] Penicillins Allergy Rash/Hives Verified 04/27/21 11:45 albuterol [From Ventolin HFA] AdvReac Rapid Verified 04/27/21 11:45 Heart Rate amiodarone HCl AdvReac LUNGS/EYE Verified 04/27/21 11:45 [From Cordarone] PROBLEMS codeine AdvReac Nausea & Verified 04/27/21 11:45 Vomiting enalapril maleate AdvReac Cough Verified 04/27/21 11:45 [From Vasotec] enalaprilat dihydrate AdvReac Cough Verified 04/27/21 11:45 [From Vasotec] hydromorphone HCl AdvReac Nausea & Verified 04/27/21 11:45 [From Dilaudid] Vomiting loratadine [From Claritin] AdvReac Rapid Verified 04/27/21 11:45 Heart Rate morphine AdvReac Nausea & Verified 04/27/21 11:45 Vomiting procainamide HCl AdvReac "FLUID ON Verified 04/27/21 11:45 [From Pronestyl] HEART" tetanus toxoid, adsorbed AdvReac "JOINT Verified 04/27/21 11:45 STIFFNESS" Review of Systems ROS Statement: Those systems with pertinent positive or pertinent negative responses have been documented in the HPI. ROS Other: All systems not noted in ROS Statement are negative. Constitutional: Denies: fever, chills Eyes: Denies: eye pain ENT: Denies: ear pain Respiratory: Denies: cough Cardiovascular: Denies: chest pain Endocrine: Denies: fatigue Gastrointestinal: Reports: as per HPI Genitourinary: Denies: dysuria, hematuria Musculoskeletal: Reports: as per HPI Skin: Denies: rash Neurological: Denies: weakness Past Medical History Past Medical History: Atrial Fibrillation, Heart Failure Additional Past Medical History / Comment(s): Pt recently had an influenza and was on an antibiotic, recently told he has a "spot" on his R lung-not worked up yet, Afib with RVR in past, no CPAP necessary, kidney stones, psoriasis, reactive airway, urinary frequency. History of Any Multi-Drug Resistant Organisms: MRSA Date of last positivie culture/infection: 12/01/19 MDRO Source:: foot Past Surgical History: Cardiac Ablation, Joint Replacement, Orthopedic Surgery Additional Past Surgical History / Comment(s): cardiac ablation X2, kidney surgery 1954, iron knee, iron hip, Cardioversionx4 chip right shoulder, loss finger on left hand Past Anesthesia/Blood Transfusion Reactions: No Reported Reaction Past Psychological History: No Psychological Hx Reported Smoking Status: Never smoker Past Alcohol Use History: None Reported Past Drug Use History: None Reported - Past Family History Mother Family Medical History: Cancer Additional Family Medical History / Comment(s): Mother at age 82 of lung cancer. Father Family Medical History: Cancer Additional Family Medical History / Comment(s): Father at age 80 of prostrate cancer. Brother(s) Family Medical History: Cancer Additional Family Medical History / Comment(s): Patient has a total of 6 brothers. One brother with history of atrial fibrillation and kidney cancer, second brother with valvular heart disease, third brother with Parkinson's. Daughter(s) Additional Family Medical History / Comment(s): Patient has 3 children and one daughter from complications from obesity. Other 2 children have no major medical problems. General Exam Limitations: no limitations General appearance: alert, in no apparent distress Head exam: Present: normocephalic Eye exam: Present: normal appearance Neck exam: Present: normal inspection Respiratory exam: Present: normal lung sounds bilaterally Cardiovascular Exam: Present: regular rate, normal rhythm Expanded Peripheral pulses: 2+: Posterior Tibialis (R), Posterior Tibialis (L) GI/Abdominal exam: Present: soft. Absent: distended, tenderness, guarding, rebound Extremities exam: Present: normal inspection Back exam: Present: other (Mild tenderness below right CVA which patient states is the area of discomfort) Neurological exam: Present: alert Psychiatric exam: Present: normal affect, normal mood Skin exam: Present: normal color Course Vital Signs 04/27/21 04/27/21 08:56 10:59 Temperature 98.1 F Pulse Rate 65 59 L Respiratory 19 20 Rate Blood Pressure 117/55 139/53 O2 Sat by Pulse 96 99 Oximetry Medical Decision Making - Medical Decision Making Patient reevaluated. Patient and family updated on results and need for follow- up. Patient does question if his symptoms are related to therapy not walking normal. - Lab Data Result diagrams: 04/27/21 09:36 04/27/21 09:36 Lab Results 04/27/21 04/27/21 04/27/21 Range/Units 09:36 09:36 09:36 WBC 5.3 (3.8-10.6) k/uL RBC 3.75 L (4.30-5.90) m/uL Hgb 12.2 L (13.0-17.5) gm/dL Hct 37.9 L (39.0-53.0) % MCV 100.9 H (80.0-100.0) fL MCH 32.4 (25.0-35.0) pg MCHC 32.1 (31.0-37.0) g/dL RDW 12.4 (11.5-15.5) % Plt Count 196 (150-450) k/uL MPV 7.6 Neutrophils % 70 % Lymphocytes % 20 % Monocytes % 5 % Eosinophils % 4 % Basophils % 1 % Neutrophils # 3.7 (1.3-7.7) k/uL Lymphocytes # 1.1 (1.0-4.8) k/uL Monocytes # 0.3 (0-1.0) k/uL Eosinophils # 0.2 (0-0.7) k/uL Basophils # 0.0 (0-0.2) k/uL PT 11.5 (9.0-12.0) sec INR 1.1 (<1.2) APTT 28.5 (22.0-30.0) sec Sodium 138 (137-145) mmol/L Potassium 5.2 H (3.5-5.1) mmol/L Chloride 110 H (98-107) mmol/L Carbon Dioxide 20 L (22-30) mmol/L Anion Gap 8 mmol/L BUN 27 H (9-20) mg/dL Creatinine 1.35 H (0.66-1.25) mg/dL Est GFR (CKD-EPI)AfAm 56 (>60 ml/min/1.73 sqM) Est GFR (CKD-EPI)NonAf 48 (>60 ml/min/1.73 sqM) Glucose 108 H (74-99) mg/dL Calcium 9.2 (8.4-10.2) mg/dL Total Bilirubin 0.5 (0.2-1.3) mg/dL AST 32 (17-59) U/L ALT 18 (4-49) U/L Alkaline Phosphatase 65 (38-126) U/L Total Protein 6.4 (6.3-8.2) g/dL Albumin 3.7 (3.5-5.0) g/dL Amylase 50 (30-110) U/L Lipase 105 (23-300) U/L Urine Color Urine Appearance (Clear) Urine pH (5.0-8.0) Ur Specific Alsen (1.001-1.035) Urine Protein (Negative) Urine Glucose (UA) (Negative) Urine Ketones (Negative) Urine Blood (Negative) Urine Nitrite (Negative) Urine Bilirubin (Negative) Urine Urobilinogen (<2.0) mg/dL Ur Leukocyte Esterase (Negative) Urine RBC (0-5) /hpf Urine WBC (0-5) /hpf Ur Squamous Epith Cells (0-4) /hpf Urine Mucus (None) /hpf 04/27/21 Range/Units 09:41 WBC (3.8-10.6) k/uL RBC (4.30-5.90) m/uL Hgb (13.0-17.5) gm/dL Hct (39.0-53.0) % MCV (80.0-100.0) fL MCH (25.0-35.0) pg MCHC (31.0-37.0) g/dL RDW (11.5-15.5) % Plt Count (150-450) k/uL MPV Neutrophils % % Lymphocytes % % Monocytes % % Eosinophils % % Basophils % % Neutrophils # (1.3-7.7) k/uL Lymphocytes # (1.0-4.8) k/uL Monocytes # (0-1.0) k/uL Eosinophils # (0-0.7) k/uL Basophils # (0-0.2) k/uL PT (9.0-12.0) sec INR (<1.2) APTT (22.0-30.0) sec Sodium (137-145) mmol/L Potassium (3.5-5.1) mmol/L Chloride (98-107) mmol/L Carbon Dioxide (22-30) mmol/L Anion Gap mmol/L BUN (9-20) mg/dL Creatinine (0.66-1.25) mg/dL Est GFR (CKD-EPI)AfAm (>60 ml/min/1.73 sqM) Est GFR (CKD-EPI)NonAf (>60 ml/min/1.73 sqM) Glucose (74-99) mg/dL Calcium (8.4-10.2) mg/dL Total Bilirubin (0.2-1.3) mg/dL AST (17-59) U/L ALT (4-49) U/L Alkaline Phosphatase (38-126) U/L Total Protein (6.3-8.2) g/dL Albumin (3.5-5.0) g/dL Amylase (30-110) U/L Lipase (23-300) U/L Urine Color Yellow Urine Appearance Clear (Clear) Urine pH 5.0 (5.0-8.0) Ur Specific Alsen 1.012 (1.001-1.035) Urine Protein Negative (Negative) Urine Glucose (UA) Negative (Negative) Urine Ketones Negative (Negative) Urine Blood Trace H (Negative) Urine Nitrite Negative (Negative) Urine Bilirubin Negative (Negative) Urine Urobilinogen <2.0 (<2.0) mg/dL Ur Leukocyte Esterase Negative (Negative) Urine RBC <1 (0-5) /hpf Urine WBC <1 (0-5) /hpf Ur Squamous Epith Cells <1 (0-4) /hpf Urine Mucus Rare H (None) /hpf - Radiology Data Radiology results: report reviewed (Computed tomography scan of abdomen and pelvis does not show acute abnormality.) Disposition Clinical Impression: Flank pain Disposition: HOME SELF-CARE Condition: Stable Instructions (If sedation given, give patient instructions): Back Pain (ED) Additional Instructions: Please do follow-up to primary care physician in the next day or 2 for recheck. Return for fever, increased pain, weakness, worsening or change in symptoms or other concerns. Is patient prescribed a controlled substance at d/c from ED?: No Referrals: Nehemiah Mosqueda DO [Primary Care Provider] - 1-2 days Time of Disposition: 11:53
[2021-04-27 09:47] LABS: Basophils % (A) 1 %; Eosinophils # (A) 0.2 k/uL (0-0.7); Eosinophils % (A) 4 %; HCT 37.9 % (39.0-53.0); HGB 12.2 gm/dL (13.0-17.5); Lymphocytes # (A) 1.1 k/uL (1.0-4.8); Lymphocytes % (A) 20 %; MCH 32.4 pg (25.0-35.0); MCHC 32.1 g/dL (31.0-37.0); MCV 100.9 fL (80.0-100.0); Mean Platelet Volume 7.6; Monocytes # (A) 0.3 k/uL (0-1.0); Monocytes % (A) 5 %; Neutrophils # (A) 3.7 k/uL (1.3-7.7); Neutrophils % (A) 70 %; Platelet Count 196 k/uL (150-450); RBC 3.75 m/uL (4.30-5.90); RDW 12.4 % (11.5-15.5); WBC 5.3 k/uL (3.8-10.6)
[2021-04-27 09:58] LABS: Albumin 3.7 g/dL (3.5-5.0); Calcium 9.2 mg/dL (8.4-10.2); Potassium 5.2 mmol/L (3.5-5.1); Total Bilirubin 0.5 mg/dL (0.2-1.3); Total Protein 6.4 g/dL (6.3-8.2)
[2021-04-27 10:04] LABS: Appearance,Urine Clear (Clear); Bilirubin,Urine Negative (Negative); Blood,Urine Trace (Negative); Color,Urine Yellow; Glucose,Urine (UA) Negative (Negative); Ketones,Urine Negative (Negative); Leukocyte Esterase,Urine Negative (Negative); Mucus,Urine Rare /hpf; Nitrite,Urine Negative (Negative); Protein,Urine Negative (Negative); RBC,Urine <1 /hpf (0-5); Specific Gravity,Urine 1.012 (1.001-1.035); Squamous Epithelial Cell,Urine <1 /hpf (0-4); Urobilinogen,Urine <2.0 mg/dL (<2.0); WBC,Urine <1 /hpf (0-5)
[2021-04-27 10:12] LABS: INR 1.1 (<1.2); Partial Thromboplastin Time 28.5 sec (22.0-30.0); Prothrombin Time 11.5 sec (9.0-12.0)
[2021-04-27 11:01] VITALS: PULSE 59; RESP 20
--- NOTE | 2021-04-27 11:06 | CT ---
EXAMINATION TYPE: CT abdomen pelvis w con DATE OF EXAM: 04/27/2021 COMPARISON: 03/19/2019 HISTORY: Right sided flank pain. CT DLP: 2527.4 mGycm CONTRAST: CT scan of the abdomen and pelvis is performed without Oral Contrast and with IV Contrast, patient in jected with 80 mL of Isovue 300. FINDINGS: LUNG BASES-: No visible nodule. No infiltrate. LIVER/GB: Large gallstone noted without wall thickening or pericholecystic fluid. No space occupyi ng hepatic lesion. Biliary tree is of normal caliber. PANCREAS: No inflammation. No distinct mass. SPLEEN: No splenic enlargement. No lesion seen. ADRENALS: No nodule. No thickening. KIDNEYS/BLADDER: No hydronephrosis. No nephrolithiasis. Renal cystic changes are stable. Urinary bl adder grossly unremarkable. BOWEL: Normal appendix. Normal bowel caliber. No inflammation. GENITAL ORGANS: Mild prostate gland enlargement. LYMPH NODES: No greater than 1cm abdominal or pelvic lymph nodes are appreciated. AORTA: No significant abnormality. OSSEOUS STRUCTURES: Bilateral total hip arthroplasty resulting in streak artifact limiting evaluation of the pelvic structures. Multilevel degenerative disc disease of the lumbar spine. OTHER: No significant additional abnormality is seen. IMPRESSION: 1. No acute process identified to account for the patient's symptoms.
[2021-04-27] MEDS ORDERED: traMADol 50 MG STARTER PACK 3 TAB BTL PO STA (11:52)
[2021-04-27 12:39] VITALS: BP 136/51; TEMP 98
== END 2021-04-27 12:39 | disposition home or self-care (01) ==
LOC: EC 08:42
DX: R10.9 Unspecified abdominal pain (principal); I50.9 Heart failure, unspecified; I48.91 Unspecified atrial fibrillation; Z79.82 Long term (current) use of aspirin; Z88.0 Allergy status to penicillin; Z88.1 Allergy status to other antibiotic agents; Z88.5 Allergy status to narcotic agent; Z88.6 Allergy status to analgesic agent; Z88.7 Allergy status to serum and vaccine; Z79.01 Long term (current) use of anticoagulants; Z87.442 Personal history of urinary calculi; Z96.643 Presence of artificial hip joint, bilateral; Z96.653 Presence of artificial knee joint, bilateral
CPT/HCPCS: 99284; 96360; 96361; 36415; 80053; 82150; 83690; 85025; 85610; 85730; 81001; 74177; Q9967

== ENCOUNTER 2021-09-21 10:57 | Inpatient (IN) | payer MEDICARE ==
[2021-09-21] MEDS ORDERED: KETOROLAC 15 MG/ML 1 ML VIAL IVP STA (11:38)
--- NOTE | 2021-09-21 11:42 | ED ---
General Adult HPI - General Source: patient, family (), RN notes reviewed, old records reviewed Mode of arrival: wheelchair Limitations: no limitations - History of Present Illness Location: back (right ribs/flank) Radiation: non-radiation Severity scale (1-10): 8 Quality: sharp Consistency: intermittent Improves with: immobilization Worsens with: movement Associated Symptoms: other (constipation) <Carlos Doan - Last Filed: 09/21/21 14:34> <Jesica Calvin - Last Filed: 09/24/21 23:56> - General Chief complaint: Abdominal Pain Stated complaint: Side pain Time Seen by Provider: 09/21/21 11:30 - History of Present Illness Initial comments: 86-year-old well-appearing male presents with his complaining of right sided rib pain. He states that the pain has been there since April. He has been here for this pain in the past and told it was a pulled muscle. He seen his primary care doctor yesterday and was given a shot and states the pain is now worse. He states it is worse with movement and relieved with immobilization. He denies any abdominal pain, no nausea, vomiting, diarrhea or fevers. He states he has had some constipation, normally goes a couple times a day however has only had one bowel movement within the past 2 days. Patient does have a prescription from his primary care doctor for a chest x-ray and abdominal x-ray with right rib series. (Carlos Doan) - Related Data Home Medications Medication Instructions Recorded Confirmed Tamsulosin HCl [Flomax] 0.4 mg PO BID@0700,1900 07/12/14 09/21/21 Aspirin EC [Ecotrin Low Dose] 81 mg PO HS@1900 08/14/19 09/21/21 Melatonin 6 mg PO HS@2100 08/14/19 09/21/21 Apixaban [Eliquis] 5 mg PO BID@0700,1900 09/12/19 09/21/21 Amiodarone [Cordarone] 200 mg PO DAILY@0900 04/27/21 09/21/21 Levothyroxine Sodium 100 mcg PO DAILY@0500 04/27/21 09/21/21 Multivit-Min/FA/Lycopen/Lutein 1 tab PO DAILY@1130 04/27/21 09/21/21 [Centrum Silver Tablet] Previous Rx's Medication Instructions Recorded Midodrine [ProAmatine] 10 mg PO TID@0700,1130,1700 #0 09/22/21 Sodium Zirconium Cyclosilicate 10 gm PO ONCE #1 packet 09/22/21 [Lokelma] Allergies Allergy/AdvReac Type Severity Reaction Status Date / Time isosorbide mononitrate Allergy Unknown Verified 09/21/21 12:20 [From Imdur] Penicillins Allergy Rash/Hives Verified 09/21/21 12:20 albuterol [From Ventolin HFA] AdvReac Rapid Verified 09/21/21 12:20 Heart Rate amiodarone HCl AdvReac LUNGS/EYE Verified 09/21/21 12:20 [From Cordarone] PROBLEMS codeine AdvReac Nausea & Verified 09/21/21 12:20 Vomiting enalapril maleate AdvReac Cough Verified 09/21/21 12:20 [From Vasotec] enalaprilat dihydrate AdvReac Cough Verified 09/21/21 12:20 [From Vasotec] hydromorphone HCl AdvReac Nausea & Verified 09/21/21 12:20 [From Dilaudid] Vomiting loratadine [From Claritin] AdvReac Rapid Verified 09/21/21 12:20 Heart Rate morphine AdvReac Nausea & Verified 09/21/21 12:20 Vomiting procainamide HCl AdvReac "FLUID ON Verified 09/21/21 12:20 [From Pronestyl] HEART" tetanus toxoid, adsorbed AdvReac "JOINT Verified 09/21/21 12:20 STIFFNESS" Review of Systems ROS Other: All systems not noted in ROS Statement are negative. <Carlos Doan - Last Filed: 09/21/21 14:34> ROS Other: All systems not noted in ROS Statement are negative. <Jesica Calvin - Last Filed: 09/24/21 23:56> ROS Statement: Those systems with pertinent positive or pertinent negative responses have been documented in the HPI. Past Medical History Past Medical History: Atrial Fibrillation, Heart Failure Additional Past Medical History / Comment(s): Pt recently had an influenza and was on an antibiotic, recently told he has a "spot" on his R lung-not worked up yet, Afib with RVR in past, no CPAP necessary, kidney stones, psoriasis, reactive airway, urinary frequency. History of Any Multi-Drug Resistant Organisms: MRSA Date of last positivie culture/infection: 12/01/19 MDRO Source:: foot Past Surgical History: Cardiac Ablation, Joint Replacement, Orthopedic Surgery Additional Past Surgical History / Comment(s): cardiac ablation X2, kidney surgery 1954, iron knee, iron hip, Cardioversionx4 chip right shoulder, loss finger on left hand Past Anesthesia/Blood Transfusion Reactions: No Reported Reaction Past Psychological History: No Psychological Hx Reported Smoking Status: Never smoker Past Alcohol Use History: None Reported Past Drug Use History: None Reported - Past Family History Mother Family Medical History: Cancer Additional Family Medical History / Comment(s): Mother at age 82 of lung cancer. Father Family Medical History: Cancer Additional Family Medical History / Comment(s): Father at age 80 of prostrate cancer. Brother(s) Family Medical History: Cancer Additional Family Medical History / Comment(s): Patient has a total of 6 brothers. One brother with history of atrial fibrillation and kidney cancer, second brother with valvular heart disease, third brother with Parkinson's. Daughter(s) Additional Family Medical History / Comment(s): Patient has 3 children and one daughter from complications from obesity. Other 2 children have no major medical problems. <Carlos Doan - Last Filed: 09/21/21 14:34> General Exam Limitations: no limitations General appearance: alert, in no apparent distress Neck exam: Absent: tenderness, meningismus, lymphadenopathy Respiratory exam: Present: normal lung sounds bilaterally. Absent: respiratory distress, wheezes, rales, rhonchi, stridor, accessory muscle use, decreased breath sounds Cardiovascular Exam: Present: regular rate, normal rhythm. Absent: JVD GI/Abdominal exam: Present: soft, tenderness (right side rib pain). Absent: distended, guarding, rebound, rigid, normal bowel sounds Back exam: Present: normal inspection, full ROM. Absent: CVA tenderness (R), CVA tenderness (L), rash noted Neurological exam: Present: alert, oriented X3 Psychiatric exam: Present: normal affect, normal mood Skin exam: Present: warm, dry, intact, normal color. Absent: cyanosis, diaphoretic, petechiae, pallor <Carlos Doan - Last Filed: 09/21/21 14:34> Course Vital Signs 09/21/21 09/21/21 09/21/21 11:01 11:30 15:44 Temperature 98.2 F 99.0 F 97.0 F L Pulse Rate 60 60 56 L Respiratory 16 18 16 Rate Blood Pressure 147/54 134/59 129/49 O2 Sat by Pulse 97 97 95 Oximetry EKG Findings - EKG Results: EKG: sinus rhythm (Ventricular rate of 57, [place] interval 0.170, QRS 0.131, QTC 0.460), not changed from: ([place] interval 0.178 on 08-25-2019) <Carlos Doan - Last Filed: 09/21/21 14:34> Medical Decision Making - Lab Data Result diagrams: 09/21/21 11:54 09/21/21 11:54 <Carlos Doan - Last Filed: 09/21/21 14:34> - Lab Data Result diagrams: 09/21/21 11:54 09/22/21 10:03 <Jesica Calvin - Last Filed: 09/24/21 23:56> - Medical Decision Making 86-year-old male presents alert and oriented 4 with complaints of right sided rib pain since April of last year. Patient states he's been told that it was a pulled muscle. He did see his primary care doctor yesterday and was given an injection for the pain however the discomfort is worse today. He denies any chest pain, fevers, nausea vomiting or diarrhea. Chest x-ray shows a lucency underneath the right hemidiaphragm which is where the patient's pain is located. Pneumoperitoneum is difficult to exclude and recommended to have CT abdomen and pelvis. There is no evidence of a right- sided rib fracture. CT of the abdomen without contrast shows no renal stones or hydronephrosis. There is a stable 4-5 mm left basilar nodule. There is a persistent 2.5 cm hyperdense intraluminal gallstone likely not the cause of the patient's right rib pain. There is no evidence of free air. EKG shows sinus bradycardia with a ventricular rate of 57. No significant change from old EKG dated August 2019. Potassium is 6.4, which is elevated from last visit of 5.5 July 19. BUN is 28 and creatinine is 1.50 and consistent for the patient. Patient's states that they have seen Dr. Altamirano last month who has taken him off Lasix and directed him to take half his Aldactone related to elevated potassium levels. Patient was given insulin, dextrose, and bicarbonate for his hyperkalemia. declined the albuterol stating it causes return of his atrial fibrillation. Patient will be admitted to the hospital for hyperkalemia to Dr Prather. Case discussed with Dr. Calvin. (Carlos Doan) I was available for consultation in the emergency department. The history and physical exam were done by the midlevel provider. I was consulted for this patients care. I reviewed the case with the midlevel provider and based on their presentation of the patient, I agree with the assessment, medical decision making and plan of care as documented. Chart was dictated using [employer] dictation software. Attempts were made to correct any dictation errors however some typographical errors may persist. Patient was seen during a national state of emergency due to the Covid-19 pandemic. (Jesica Calvin) - Lab Data Lab Results 09/21/21 09/21/21 09/21/21 Range/Units 11:38 11:54 11:54 WBC 7.4 (3.8-10.6) k/uL RBC 3.77 L (4.30-5.90) m/uL Hgb 12.3 L (13.0-17.5) gm/dL Hct 37.6 L (39.0-53.0) % MCV 99.7 (80.0-100.0) fL MCH 32.6 (25.0-35.0) pg MCHC 32.7 (31.0-37.0) g/dL RDW 13.5 (11.5-15.5) % Plt Count 195 (150-450) k/uL MPV 7.7 Neutrophils % 74 % Lymphocytes % 18 % Monocytes % 5 % Eosinophils % 1 % Basophils % 0 % Neutrophils # 5.5 (1.3-7.7) k/uL Lymphocytes # 1.3 (1.0-4.8) k/uL Monocytes # 0.4 (0-1.0) k/uL Eosinophils # 0.1 (0-0.7) k/uL Basophils # 0.0 (0-0.2) k/uL Sodium 136 L (137-145) mmol/L Potassium 6.4 H* (3.5-5.1) mmol/L Chloride 106 (98-107) mmol/L Carbon Dioxide 25 (22-30) mmol/L Anion Gap 5 mmol/L BUN 28 H (9-20) mg/dL Creatinine 1.50 H (0.66-1.25) mg/dL Est GFR (CKD-EPI)AfAm 49 (>60 ml/min/1.73 sqM) Est GFR (CKD-EPI)NonAf 42 (>60 ml/min/1.73 sqM) Glucose 92 (74-99) mg/dL POC Glucose (mg/dL) (75-99) mg/dL POC Glu Showroom Consultant ID Plasma Lactic Acid Archie (0.7-2.0) mmol/L Calcium 8.9 (8.4-10.2) mg/dL Total Bilirubin 0.5 (0.2-1.3) mg/dL AST 21 (17-59) U/L ALT 14 (4-49) U/L Alkaline Phosphatase 52 (38-126) U/L Total Protein 6.9 (6.3-8.2) g/dL Albumin 4.0 (3.5-5.0) g/dL Amylase 57 (30-110) U/L Lipase 108 (23-300) U/L Urine Color Yellow Urine Appearance Clear (Clear) Urine pH 5.0 (5.0-8.0) Ur Specific Sheldon 1.020 (1.001-1.035) Urine Protein Negative (Negative) Urine Glucose (UA) Trace H (Negative) Urine Ketones Negative (Negative) Urine Blood Negative (Negative) Urine Nitrite Negative (Negative) Urine Bilirubin Negative (Negative) Urine Urobilinogen <2.0 (<2.0) mg/dL Ur Leukocyte Esterase Negative (Negative) 09/21/21 09/21/21 09/21/21 Range/Units 11:54 14:31 14:37 WBC (3.8-10.6) k/uL RBC (4.30-5.90) m/uL Hgb (13.0-17.5) gm/dL Hct (39.0-53.0) % MCV (80.0-100.0) fL MCH (25.0-35.0) pg MCHC (31.0-37.0) g/dL RDW (11.5-15.5) % Plt Count (150-450) k/uL MPV Neutrophils % % Lymphocytes % % Monocytes % % Eosinophils % % Basophils % % Neutrophils # (1.3-7.7) k/uL Lymphocytes # (1.0-4.8) k/uL Monocytes # (0-1.0) k/uL Eosinophils # (0-0.7) k/uL Basophils # (0-0.2) k/uL Sodium (137-145) mmol/L Potassium 5.2 H (3.5-5.1) mmol/L Chloride (98-107) mmol/L Carbon Dioxide (22-30) mmol/L Anion Gap mmol/L BUN (9-20) mg/dL Creatinine (0.66-1.25) mg/dL Est GFR (CKD-EPI)AfAm (>60 ml/min/1.73 sqM) Est GFR (CKD-EPI)NonAf (>60 ml/min/1.73 sqM) Glucose (74-99) mg/dL POC Glucose (mg/dL) 85 (75-99) mg/dL POC Glu Showroom Consultant ID Dino Jama Plasma Lactic Acid Archie 1.1 (0.7-2.0) mmol/L Calcium (8.4-10.2) mg/dL Total Bilirubin (0.2-1.3) mg/dL AST (17-59) U/L ALT (4-49) U/L Alkaline Phosphatase (38-126) U/L Total Protein (6.3-8.2) g/dL Albumin (3.5-5.0) g/dL Amylase (30-110) U/L Lipase (23-300) U/L Urine Color Urine Appearance (Clear) Urine pH (5.0-8.0) Ur Specific Sheldon (1.001-1.035) Urine Protein (Negative) Urine Glucose (UA) (Negative) Urine Ketones (Negative) Urine Blood (Negative) Urine Nitrite (Negative) Urine Bilirubin (Negative) Urine Urobilinogen (<2.0) mg/dL Ur Leukocyte Esterase (Negative) Disposition Decision Date: 09/21/21 Decision Time: 14:06 <Carlos Doan - Last Filed: 09/21/21 14:34> <Jesica Calvin - Last Filed: 09/24/21 23:56> Clinical Impression: Hyperkalemia Disposition: ADMITTED IP TO THIS HOSP Condition: Good
[2021-09-21 12:16] LABS: Basophils % (A) 0 %; Eosinophils # (A) 0.1 k/uL (0-0.7); Eosinophils % (A) 1 %; HCT 37.6 % (39.0-53.0); HGB 12.3 gm/dL (13.0-17.5); Lymphocytes # (A) 1.3 k/uL (1.0-4.8); Lymphocytes % (A) 18 %; MCH 32.6 pg (25.0-35.0); MCHC 32.7 g/dL (31.0-37.0); MCV 99.7 fL (80.0-100.0); Mean Platelet Volume 7.7; Monocytes # (A) 0.4 k/uL (0-1.0); Monocytes % (A) 5 %; Neutrophils # (A) 5.5 k/uL (1.3-7.7); Neutrophils % (A) 74 %; Platelet Count 195 k/uL (150-450); RBC 3.77 m/uL (4.30-5.90); RDW 13.5 % (11.5-15.5); WBC 7.4 k/uL (3.8-10.6)
--- NOTE | 2021-09-21 12:17 | XR ---
EXAMINATION TYPE: XR chest 2V, XR ribs RT DATE OF EXAM: 09/21/2021 COMPARISON: NONE HISTORY: Shortness of breath TECHNIQUE: Frontal and lateral views of the chest are obtained. 4 views of the right-sided ribs are also submitted. FINDINGS: Scattered senescent parenchymal changes noted. Hyperinflation compatible with COPD. Lucency underneat h the right hemidiaphragm. Pneumoperitoneum is difficult to exclude. CT abdomen and pelvis recommende d. No evidence for infiltrate. No evidence for atelectasis. Heart size is stable. Mediastinal structures are stable and grossly unremarkable. No evidence for hilar prominence. No displaced acute right-sided rib fractures seen at this time. IMPRESSION: 1. Lucency underneath the right hemidiaphragm. Pneumoperitoneum is difficult to exclude. CT abdomen a nd pelvis recommended. 2. No evidence for acute pulmonary disease or displaced right-sided rib fracture.
--- NOTE | 2021-09-21 12:18 | XR ---
EXAMINATION TYPE: XR KUB DATE OF EXAM: 09/21/2021 COMPARISON: NONE HISTORY: Pain TECHNIQUE: Single supine KUB image of the abdomen is obtained FINDINGS: Small bowel demonstrates no evidence for dilatation or air fluid levels. Gas and fecal material is seen in non-distended colon. Moderate colonic stasis noted. There is a lucency at the level of the patient's focal eventration on the right which could reflect i nterposed bowel however free air is difficult to exclude. Recommend CT abdomen pelvis. No unusual calcifications. The lung bases are clear. The osseous structures are intact. Bilateral hip prostheses noted. IMPRESSION: 1. There is a lucency at the level of the patient's focal eventration on the right which could refle ct interposed bowel however free air is difficult to exclude. Recommend CT abdomen pelvis.
[2021-09-21 12:39] LABS: Calcium 8.9 mg/dL (8.4-10.2); Total Bilirubin 0.5 mg/dL (0.2-1.3); Total Protein 6.9 g/dL (6.3-8.2)
[2021-09-21 12:48] LABS: Potassium 6.4 mmol/L (3.5-5.1)
[2021-09-21] MEDS ORDERED: INSULIN REGULAR 100 UNIT/ML VIAL (IV) IV ONE (13:04)
[2021-09-21] MEDS ORDERED: DEXTROSE 50% SYRINGE 50 ML IVP ONE (13:04)
[2021-09-21] MEDS ORDERED: SODIUM BICARB 8.4% 50 ML SYR (1 MEQ/ML) IV ONE (13:04)
[2021-09-21] MEDS: ALBUTEROL NEB (CONC) 2.5 MG/0.5 ML INHALATION ONE ×2 (13:21→13:22)
--- NOTE | 2021-09-21 13:59 | CT ---
EXAMINATION TYPE: CT abdomen pelvis wo con DATE OF EXAM: 09/21/2021 HISTORY: Abdominal pain. Right upper quadrant and flank pain CT DLP: 1413.4 mGycm. Automated Exposure Control for Dose Reduction was Utilized. TECHNIQUE: CT scan of the abdomen and pelvis is performed without oral or IV contrast. COMPARISON: CT abdomen and pelvis April 27, 2021 FINDINGS: Within the limitations of a non-contrast study, the following observations are made. LUNG BASES: Patchy left basilar atelectatic change and/or scarring redemonstrated. Stable 4 to 5 mm l eft basilar nodule axial image 1. Calcification at level of the aortic valve redemonstrated. LIVER/GB: There is persistent 2.5 cm rim hyperdense intraluminal gallstone. PANCREAS: Moderate to severe generalized atrophy greatest in the pancreatic head in uncinate process. SPLEEN: No significant abnormality is seen. ADRENALS: No significant abnormality is seen. KIDNEYS: Some cortical thinning in both kidneys. Scattered simple-appearing thin-walled cysts of vary ing size and shape redemonstrated. No renal calculi or hydronephrosis seen bilaterally BOWEL: A few diverticula in the left and sigmoid colon. No CT evidence for acute diverticulitis. GENITAL ORGANS: Suboptimal evaluation due to streak artifact. LYMPH NODES: No greater than 1cm abdominal or pelvic lymph nodes are appreciated. OSSEOUS STRUCTURES: Metallic artifact from bilateral hip arthroplasty causes streak artifact limiting evaluation of pelvic structures. Moderate to severe disc space narrowing L4-L5 level. Moderate disc space narrowing with dislocation L5-S1 level. Sacralized left L5 segment. 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 IMPRESSION: No renal stones or hydronephrosis is seen bilaterally. No suspicious new or acute finding identified to account for patient's symptoms.
[2021-09-21] MEDS ORDERED: ACETAMINOPHEN TAB 325 MG TAB PO PRN (14:25)
[2021-09-21] MEDS ORDERED: NALOXONE 0.4 MG/ML 1 ML VIAL IV PRN (14:25)
[2021-09-21 14:32] LABS: Glucose,Whole Blood 85 mg/dL (75-99)
--- NOTE | 2021-09-21 15:26 | US ---
EXAMINATION TYPE: US renals and bladder DATE OF EXAM: 09/21/2021 COMPARISON: NONE CLINICAL HISTORY: uti, back pain, hx of kidney stones. Pain EXAM MEASUREMENTS: Right Kidney: 11.4 x 5.0 x 5.1 cm Left Kidney: 11.0 x 5.5 x 5.0 cm Right Kidney: anechoic area measuring 2.7 x 2.7 x 2.3 cm Left Kidney: No hydronephrosis or masses seen Bladder: Distended Bilateral Jets seen: No Large shadowing gall stone seen in gallbladder measuring 3.0 x 2.3 x 2.3cm There is no evidence for hydronephrosis at this point in time. No nephrolithiasis is seen. No joseph s are identified. The urinary bladder is anechoic. Limited exam due to patient body habitus and bowel gas. There is anechoic area in right kidney and in cidental gallbladder stone noted. IMPRESSION: Large shadowing gall stone seen in gallbladder measuring 3.0 x 2.3 x 2.3cm Simple cyst right kidney.
[2021-09-21] MEDS: MIDODRINE 5 MG TAB PO SCH (16:40)
[2021-09-21] MEDS ORDERED: ASPIRIN 81 MG PO SCH (19:00)
[2021-09-21 20:01] LABS: Appearance,Urine Clear (Clear); Bilirubin,Urine Negative (Negative); Blood,Urine Negative (Negative); Color,Urine Yellow; Glucose,Urine (UA) Trace (Negative); Ketones,Urine Negative (Negative); Leukocyte Esterase,Urine Negative (Negative); Nitrite,Urine Negative (Negative); Protein,Urine Negative (Negative); Urobilinogen,Urine <2.0 mg/dL (<2.0)
[2021-09-21] MEDS: APIXABAN 5 MG TAB PO SCH (20:48)
[2021-09-21] MEDS: TAMSULOSIN 0.4 MG CAP.ER.24H PO SCH (20:48)
[2021-09-21] MEDS ORDERED: MELATONIN 3 MG TABLET PO SCH (21:00)
[2021-09-22] MEDS ORDERED: LEVOTHYROXINE 100 MCG TAB PO SCH (05:00)
[2021-09-22] MEDS: MIDODRINE 5 MG TAB PO SCH ×2 (08:02→12:44)
[2021-09-22] MEDS: APIXABAN 5 MG TAB PO SCH (08:06)
[2021-09-22] MEDS: TAMSULOSIN 0.4 MG CAP.ER.24H PO SCH (08:06)
[2021-09-22] MEDS ORDERED: AMIODARONE 200 MG TAB PO SCH (09:00)
[2021-09-22 11:00] VITALS: BP 122/63; PULSE 57; RESP 20; TEMP 97.9
[2021-09-22 11:09] LABS: African American GFR (CKD) 44 (>60 ml/min/1.73 sqM); Anion Gap 5 mmol/L; Blood Urea Nitrogen 37 mg/dL (9-20); Calcium 8.5 mg/dL (8.4-10.2); Carbon Dioxide 25 mmol/L (22-30); Chloride 102 mmol/L (98-107); Glucose 100 mg/dL (74-99); Non-African American GFR(CKD) 38 (>60 ml/min/1.73 sqM); Potassium 5.6 mmol/L (3.5-5.1); Sodium 132 mmol/L (137-145)
[2021-09-22] MEDS ORDERED: SODIUM ZIRCONIUM CYCLOSILICATE 10 GM PACKET PO ONE (12:36)
--- NOTE | 2021-09-22 15:46 | P.HPIM ---
History of Present Illness H&P Date: 09/22/21 HISTORY AND PHYSICAL AND DISCHARGE SUMMARY: HISTORY OF PRESENT ILLNESS This is an 86-year-old male patient of Dr. Mosqueda with past medical history of chronic persistent atrial fibrillation status post cardiac ablation in 2007 as well as cardioversions a couple times since then, hypertension, osteoarthritis, obstructive sleep apnea but not currently on a CPAP, psoriasis, hard of hearing, chronic lower extremity vascular ulcers, chronic systolic and diastolic heart failure, benign prostatic hypertrophy, hypothyroidism, adrenal insufficiency, chronic kidney disease stage II, anemia of chronic disease, kidney stones and renal stent. Patient presented to [facility] emergency center due to right-sided rib pain since April. He was seen by his PCP and was given an injection and the pain worsened. Pain is worse with move ment. No abdominal pain, no nausea or vomiting. No diarrhea, no fever. He does have constant obstipation. Patient complains of chronic back pain for which he has seen Dr. Becerril, Dr. Maria Ines Lo in the past. She was found to be afebrile, heart rate in the 60s, blood pressure 147/54, pulse ox 97%. Potassium 6.4, sodium 136, BUN 28 and creatinine 1.5. Hemoglobin 12.3. Blood sugar 92.. Chest x-ray CAT scan of the abdomen without contrast reveals no renal stones, no hydronephrosis. Stable 45 millimeter left basilar nodule. Persistent 2.5 cm hyperdense intraluminal gallstone likely not the cause of the patient's right rib pain. No evidence of free air. EKG sinus bradycardia with no acute changes. Patient was given insulin, dextrose and sodium bicarbonate for hyperkalemia and patient was placed on the MedSurg floor. Repeat potassium was 5.6, BUN 37 creatinine 1.65. One dose of lokelma ordered and patient will be discharged home today in stable condition. One dose of Lokelma was ordered for home however this was not available through his pharmacy. Patient is to have blood work on Monday 09/[address] Appiah and Dr. Martinez. Patient to avoid foods with high potassium including bananas. Midodrine was placed on hold unless blood pressure is less than 90 systolic. Patient is also instructed to follow Dr. Spann regarding his right-sided pain most likely secondary to his back problems. Lasix placed on hold. REVIEW OF SYSTEMS Constitutional: No fever, no chills, no night sweats. No weight change. No weakness, fatigue or lethargy. No daytime sleepiness. EENT: No headache. No blurred vision or double vision, no loss of vision. No loss of Hearing, no ringing in the ears, no dizziness. No nasal drainage or congestion. No epistaxis. No sore throat. Lungs: No shortness of breath, cough, no sputum production. No wheezing. Cardiovascular: Ports right rib pain. No chest pain, no lower extremity edema. No palpitations. No paroxysmal nocturnal dyspnea. No orthopnea. No lightheadedness or dizziness. No syncopal episodes. Abdominal: No abdominal pain. No nausea, vomiting. No diarrhea. No constipation. No bloody or tarry stools. No loss of appetite. Genitourinary: No dysuria, increased frequency, urgency. No urinary retention. Musculoskeletal: No myalgias. No muscle weakness, no gait dysfunction, no frequent falls. No back pain. No neck pain. Integumentary: No wounds, no lesions. No rash or pruritus. No unusual bruising. No change in hair or nails. Neurologic: No aphasia. No facial droop. No change in mentation. No head injury. No headache. No paralysis. No paresthesia. Psychiatric: No depression. No anxiety. No mood swings. Endocrine: No abnormal blood sugars. No weight change. No excessive sweating or thirst. No cold intolerance. SOCIAL HISTORY Patient smoked a pipe for 7 years and quit 42 years ago. No alcohol use, no marijuana or illicit drug use. FAMILY HISTORY Mother at age 82 of lung cancer. Father at age 80 of prostrate cancer. Patient has a total of 6 brothers. One brother with history of atrial fibrillation and kidney cancer, second brother with valvular heart disease, third brother with Parkinson's. Patient has 3 children and one daughter from complications from obesity. Other 2 children have no major medical problems.. PHYSICAL EXAMINATION Gen: This is an 86 year old male. He sitting up in a recliner appears to be comfortable. Patient's is at bedside. No acute respiratory distress noted. HEENT: Head is atraumatic, normocephalic. Pupils equal, round. Sclerae is anicteric. NECK: Supple. No JVD. No lymphadenopathy. No thyromegaly. LUNGS: Clear to auscultation. No wheezes or rhonchi. No intercostal retractions. HEARTirregularly irregularate and rhythm. systolic ejectionrmur. ABDOMEN: Soft. Bowel sounds are present. No masses. No tenderness. EXTREMtrace bilateralpedal edema. No calf tenderness. NEUROLOGICAL: Patient is awake, alert and oriented x3. Cranial nerves 2 through 12 are grossly intact. ASSESSMENT AND PLAN 1. Hyperkalemia. Most likely due to use of Aldactone and high intake of potassium rich foods. Patient is status post insulin, dextrose and sodium bicarbonate. One dose of lokelma today. 2. Hypertension. Midodrine placed on hold and parameters to been provided for home. 3. Chronic persistent atrial fibrillation. Continue amiodarone 200 mg daily, eliquis 5 mg twice daily. 4. Chronic hypotension. Hold midodrine. 5. Chronic systolic and diastolic heart failure. Hold Lasix and Aldactone due to hyperkalemia. 5. Benign prostatic hypertrophy. Monitor for urinary retention. Continue Flomax 0.4 mg twice daily. 6. Hypothyroidism. Continue levothyroxine 100 g daily. 7. Adrenal insufficiency. 8. Chronic kidney disease stage II. Avoid nephrotoxic agents. 9. Anemia of chronic disease 10. Obstructive sleep apnea. 11. GI prophylaxis. 12. DVT prophylaxis. Eliquis. Patient will be admitted to the hospital for a minimum of 1 night stay. DISCHARGE MEDICATIONS Tamsulosin HCl [Flomax] 0.4 mg PO BID@0700,1900 07/12/14 [History] Aspirin EC [Ecotrin Low Dose] 81 mg PO HS@1900 08/14/19 [History] Melatonin 6 mg PO HS@2100 08/14/19 [History] Apixaban [Eliquis] 5 mg PO BID@0700,1900 09/12/19 [History] Amiodarone [Cordarone] 200 mg PO DAILY@0900 04/27/21 [History] Levothyroxine Sodium 100 mcg PO DAILY@0500 04/27/21 [History] Multivit-Min/FA/Lycopen/Lutein [Centrum Silver Tablet] 1 tab PO DAILY@1130 04/27/21 [History] Midodrine [ProAmatine] 10 mg PO TID@0700,1130,1700 #0 09/22/21 [Rx] Sodium Zirconium Cyclosilicate [Lokelma] 10 gm PO ONCE #1 packet 09/22/21 [Rx] DISCHARGE PLAN Home Greater than 35 minutes was utilized and coordinating patient's discharge. Impression and plan of care have been directed as dictated by the signing physician. Urmila Carey nurse practitioner acting as scribe for signing physician. Past Medical History Past Medical History: Atrial Fibrillation, Atrial Flutter, Asthma, Heart Failure, GERD/Reflux, Hypertension, Osteoarthritis (OA), Pneumonia, Prostate Disorder, Skin Disorder, Sleep Apnea/CPAP/BIPAP Additional Past Medical History / Comment(s): Afib past RVR, A flutter, "spot" on R lung/stable, KATHLEEN/no longer needs to use device, reactive airway, bronchitis, nephrolithiasis/pt passed stones on his own, BPH, gallstones, psor iasis History of Any Multi-Drug Resistant Organisms: MRSA Date of last positivie culture/infection: 12/01/19 MDRO Source:: foot Past Surgical History: Cardiac Ablation, Joint Replacement, Orthopedic Surgery Additional Past Surgical History / Comment(s): Cardiac ablations, car dioversions, L ankle ORIF, bilateral total knee arthroplasty, bilateral total hip arthroplasty, R shoulder surgery to remove "chip", 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 Past Anesthesia/Blood Transfusion Reactions: No Reported Reaction Smoking Status: Former smoker - Past Family History Mother Family Medical History: Cancer Additional Family Medical History / Comment(s): Mother at age 82 of lung cancer. Father Family Medical History: Cancer Additional Family Medical History / Comment(s): Father at age 80 of prostrate cancer. Brother(s) Family Medical History: Cancer Additional Family Medical History / Comment(s): Patient has a total of 6 brothers. One brother with history of atrial fibrillation and kidney cancer, second brother with valvular heart disease, third brother with Parkinson's. Daughter(s) Additional Family Medical History / Comment(s): Patient has 3 children and one daughter from complications from obesity. Other 2 children have no major medical problems. Medications and Allergies Home Medications Medication Instructions Recorded Confirmed Type Tamsulosin HCl [Flomax] 0.4 mg PO BID@0700,1900 07/12/14 09/21/21 History Aspirin EC [Ecotrin Low Dose] 81 mg PO HS@1900 08/14/19 09/21/21 History Melatonin 6 mg PO HS@2100 08/14/19 09/21/21 History Apixaban [Eliquis] 5 mg PO BID@0700,1900 09/12/19 09/21/21 History Amiodarone [Cordarone] 200 mg PO DAILY@0900 04/27/21 09/21/21 History Levothyroxine Sodium 100 mcg PO DAILY@0500 04/27/21 09/21/21 History Multivit-Min/FA/Lycopen/Lutein 1 tab PO DAILY@1130 04/27/21 09/21/21 History [Centrum Silver Tablet] Midodrine [ProAmatine] 10 mg PO TID@0700,1130,1700 #0 09/22/21 09/21/21 Rx Sodium Zirconium Cyclosilicate 10 gm PO ONCE #1 packet 09/22/21 Rx [Lokelma] Allergies Allergy/AdvReac Type Severity Reaction Status Date / Time isosorbide mononitrate Allergy Unknown Verified 09/21/21 12:20 [From Imdur] Penicillins Allergy Rash/Hives Verified 09/21/21 12:20 albuterol [From Ventolin HFA] AdvReac Rapid Verified 09/21/21 12:20 Heart Rate amiodarone HCl AdvReac LUNGS/EYE Verified 09/21/21 12:20 [From Cordarone] PROBLEMS codeine AdvReac Nausea & Verified 09/21/21 12:20 Vomiting enalapril maleate AdvReac Cough Verified 09/21/21 12:20 [From Vasotec] enalaprilat dihydrate AdvReac Cough Verified 09/21/21 12:20 [From Vasotec] hydromorphone HCl AdvReac Nausea & Verified 09/21/21 12:20 [From Dilaudid] Vomiting loratadine [From Claritin] AdvReac Rapid Verified 09/21/21 12:20 Heart Rate morphine AdvReac Nausea & Verified 09/21/21 12:20 Vomiting procainamide HCl AdvReac "FLUID ON Verified 09/21/21 12:20 [From Pronestyl] HEART" tetanus toxoid, adsorbed AdvReac "JOINT Verified 09/21/21 12:20 STIFFNESS" Physical Exam Vitals: Vital Signs Temp Pulse Pulse Pulse Resp BP BP 09/22/21 07:56 97.7 F 62 16 164/62 09/22/21 05:15 97.7 F 55 L 20 161/66 09/21/21 20:00 74 59 L 20 09/21/21 19:50 98.4 F 74 20 136/61 09/21/21 16:36 97.3 F L 59 L 18 09/21/21 15:44 97.0 F L 56 L 16 129/49 09/21/21 11:30 99.0 F 60 18 134/59 09/21/21 11:01 98.2 F 60 16 147/54 BP Pulse Ox 09/22/21 07:56 97 09/22/21 05:15 96 09/21/21 20:00 09/21/21 19:50 97 09/21/21 16:36 149/53 97 09/21/21 15:44 95 09/21/21 11:30 97 09/21/21 11:01 97 Intake and Output 09/21/21 09/22/21 09/22/21 22:59 06:59 14:59 Intake Total 240 100 240 Output Total 450 Balance 240 100 -210 Intake: Oral 240 100 240 Output: Urine 450 Other: # Voids 2 2 Weight 105.687 kg Results CBC & Chem 7: 09/21/21 11:54 09/22/21 10:03 Labs: Abnormal Lab Results - Last 24 Hours (Table) 09/21/21 09/21/21 09/21/21 Range/Units 11:38 11:54 11:54 RBC 3.77 L (4.30-5.90) m/uL Hgb 12.3 L (13.0-17.5) gm/dL Hct 37.6 L (39.0-53.0) % Sodium 136 L (137-145) mmol/L Potassium 6.4 H* (3.5-5.1) mmol/L BUN 28 H (9-20) mg/dL Creatinine 1.50 H (0.66-1.25) mg/dL Urine Glucose (UA) Trace H (Negative) 09/21/21 Range/Units 14:37 RBC (4.30-5.90) m/uL Hgb (13.0-17.5) gm/dL Hct (39.0-53.0) % Sodium (137-145) mmol/L Potassium 5.2 H (3.5-5.1) mmol/L BUN (9-20) mg/dL Creatinine (0.66-1.25) mg/dL Urine Glucose (UA) (Negative) Thrombosis Risk Factor Assmnt - Choose All That Apply Any of the Below Risk Factors Present?: Yes Each Factor Represents 1 point: Obesity (BMI >25) Other Risk Factors: Yes Each Risk Factor Represents 3 Points: Age 75 years or older Other congenital or acquired thrombophilia - If yes, enter type in comment: No Thrombosis Risk Factor Assessment Total Risk Factor Score: 4 Thrombosis Risk Factor Assessment Level: Moderate Risk
== END 2021-09-22 14:20 | disposition home or self-care (01) | DRG 641 ==
LOC: EC 10:57 → 5NMEDONC 14:44
PROVIDERS: ADMIT Internal Medicine; ATTEND Internal Medicine
DX: E87.5 Hyperkalemia (principal); I48.19 Other persistent atrial fibrillation; E27.40 Unspecified adrenocortical insufficiency; I50.42 Chronic combined systolic (congestive) and diastolic (congestive) heart failure; I13.0 Hypertensive heart and chronic kidney disease with heart failure and stage 1 through stage 4 chronic kidney disease, or unspecified chronic kidney disease; D63.1 Anemia in chronic kidney disease; I95.89 Other hypotension; K80.20 Calculus of gallbladder without cholecystitis without obstruction; E03.9 Hypothyroidism, unspecified; G47.33 Obstructive sleep apnea (adult) (pediatric); J45.909 Unspecified asthma, uncomplicated; N18.2 Chronic kidney disease, stage 2 (mild); G89.29 Other chronic pain; N40.0 Benign prostatic hyperplasia without lower urinary tract symptoms; M54.9 Dorsalgia, unspecified; L40.9 Psoriasis, unspecified; M19.90 Unspecified osteoarthritis, unspecified site; Z79.01 Long term (current) use of anticoagulants; Z79.82 Long term (current) use of aspirin; Z79.890 Hormone replacement therapy; Z79.899 Other long term (current) drug therapy; K21.9 Gastro-esophageal reflux disease without esophagitis; Z87.01 Personal history of pneumonia (recurrent); Z87.442 Personal history of urinary calculi; Z86.14 Personal history of Methicillin resistant Staphylococcus aureus infection; Z96.643 Presence of artificial hip joint, bilateral; Z96.653 Presence of artificial knee joint, bilateral; Z87.891 Personal history of nicotine dependence; Z86.79 Personal history of other diseases of the circulatory system; Z89.029 Acquired absence of unspecified finger(s); Z98.890 Other specified postprocedural states; Z88.5 Allergy status to narcotic agent; Z88.0 Allergy status to penicillin; Z88.7 Allergy status to serum and vaccine; Z88.8 Allergy status to other drugs, medicaments and biological substances; Z80.1 Family history of malignant neoplasm of trachea, bronchus and lung; Z80.42 Family history of malignant neoplasm of prostate; Z80.51 Family history of malignant neoplasm of kidney; Z82.0 Family history of epilepsy and other diseases of the nervous system; Z82.49 Family history of ischemic heart disease and other diseases of the circulatory system; Z83.49 Family history of other endocrine, nutritional and metabolic diseases
CPT/HCPCS: 36415; 71046; 74018; 74176; 76770; 80048; 80053; 81003; 82150; 83605; 83690; 84132; 85025; 93005; 96374; 96375; 99285

== ENCOUNTER → 2021-10-02 | Outpatient (CLI) | payer MEDICARE ==
[2021-10-02 18:00] LABS: Anion Gap 10.7 mmol/L (10.00-18.00); BUN/Creat Ratio 23.48 Ratio (12.00-20.00); Calcium 9.3 mg/dL (8.7-10.3); Carbon Dioxide 20.2 mmol/L (20.0-27.5); Non-African American GFR(CKD) 49.2 (60.0-200.0); Potassium 5.3 mmol/L (3.5-5.5)
== END | disposition home or self-care (01) ==
LOC: LABWHC1 10:42
PROVIDERS: ATTEND Internal Medicine Cardiovascular Disease
DX: E87.5 Hyperkalemia (principal)
CPT/HCPCS: 36415; 80048

== ENCOUNTER 2022-01-06 13:05 | Emergency (ER) | payer MEDICARE ==
[2022-01-06 13:09] VITALS: RESP 18; TEMP 98.5
[2022-01-06] MEDS ORDERED: SODIUM CHLORIDE 0.9% 500 ML 500 ML IV STA (13:23)
--- NOTE | 2022-01-06 13:28 | ED ---
General Adult HPI - General Chief complaint: Arrhythmia/Palpitations Stated complaint: AFib, headache Time Seen by Provider: 01/06/22 13:23 Source: patient, family, RN notes reviewed, old records reviewed Mode of arrival: wheelchair Limitations: no limitations - History of Present Illness Initial comments: 86-year-old male presents for evaluation of palpitations, racing heart. Patient has a history of atrial fibrillation. 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 Over the past 24 hours he developed some headache which was not sudden in onset. He also had some lightheadedness. No focal numbness or weakness. His headache is persistent which is abnormal for this patient. He has no associated chest pain or dyspnea. No abdominal pain. He did have some nausea and vomiting as well. - Related Data Home Medications Medication Instructions Recorded Confirmed Tamsulosin HCl [Flomax] 0.4 mg PO BID@0700,1900 07/12/14 09/21/21 Aspirin EC [Ecotrin Low Dose] 81 mg PO HS@1900 08/14/19 09/21/21 Melatonin 6 mg PO HS@2100 08/14/19 09/21/21 Apixaban [Eliquis] 5 mg PO BID@0700,1900 09/12/19 09/21/21 Amiodarone [Cordarone] 200 mg PO DAILY@0900 04/27/21 09/21/21 Levothyroxine Sodium 100 mcg PO DAILY@0500 04/27/21 09/21/21 Multivit-Min/FA/Lycopen/Lutein 1 tab PO DAILY@1130 04/27/21 09/21/21 [Centrum Silver Tablet] Previous Rx's Medication Instructions Recorded Midodrine [ProAmatine] 10 mg PO TID@0700,1130,1700 #0 09/22/21 Sodium Zirconium Cyclosilicate 10 gm PO ONCE #1 packet 09/22/21 [Lokelma] Allergies Allergy/AdvReac Type Severity Reaction Status Date / Time isosorbide mononitrate Allergy Unknown Verified 01/06/22 13:09 [From Imdur] Penicillins Allergy Rash/Hives Verified 01/06/22 13:09 albuterol [From Ventolin HFA] AdvReac Rapid Verified 01/06/22 13:09 Heart Rate amiodarone HCl AdvReac LUNGS/EYE Verified 01/06/22 13:09 [From Cordarone] PROBLEMS codeine AdvReac Nausea & Verified 01/06/22 13:09 Vomiting enalapril maleate AdvReac Cough Verified 01/06/22 13:09 [From Vasotec] enalaprilat dihydrate AdvReac Cough Verified 01/06/22 13:09 [From Vasotec] hydromorphone HCl AdvReac Nausea & Verified 01/06/22 13:09 [From Dilaudid] Vomiting loratadine [From Claritin] AdvReac Rapid Verified 01/06/22 13:09 Heart Rate morphine AdvReac Nausea & Verified 01/06/22 13:09 Vomiting procainamide HCl AdvReac "FLUID ON Verified 01/06/22 13:09 [From Pronestyl] HEART" tetanus toxoid, adsorbed AdvReac "JOINT Verified 01/06/22 13:09 STIFFNESS" Review of Systems ROS Statement: Those systems with pertinent positive or pertinent negative responses have been documented in the HPI. ROS Other: All systems not noted in ROS Statement are negative. Past Medical History Past Medical History: Atrial Fibrillation, Atrial Flutter, Asthma, Heart Failure, GERD/Reflux, Hypertension, Osteoarthritis (OA), Pneumonia, Prostate Disorder, Skin Disorder, Sleep Apnea/CPAP/BIPAP Additional Past Medical History / Comment(s): Afib past RVR, A flutter, "spot" on R lung/stable, KATHLEEN/no longer needs to use device, reactive airway, bronchitis, nephrolithiasis/pt passed stones on his own, BPH, gallstones, psoriasis History of Any Multi-Drug Resistant Organisms: MRSA Date of last positivie culture/infection: 12/01/19 MDRO Source:: foot Past Surgical History: Cardiac Ablation, Joint Replacement, Orthopedic Surgery Additional Past Surgical History / Comment(s): Cardiac ablations, cardioversions, L ankle ORIF, bilateral total knee arthroplasty, bilateral total hip arthroplasty, R shoulder surgery to remove "chip", 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 Past Anesthesia/Blood Transfusion Reactions: No Reported Reaction Past Psychological History: No Psychological Hx Reported Smoking Status: Former smoker Past Alcohol Use History: None Reported Past Drug Use History: None Reported - Past Family History Mother Family Medical History: Cancer Additional Family Medical History / Comment(s): Mother at age 82 of lung cancer. Father Family Medical History: Cancer Additional Family Medical History / Comment(s): Father at age 80 of prostrate cancer. Brother(s) Family Medical History: Cancer Additional Family Medical History / Comment(s): Patient has a total of 6 brothers. One brother with history of atrial fibrillation and kidney cancer, second brother with valvular heart disease, third brother with Parkinson's. Daughter(s) Additional Family Medical History / Comment(s): Patient has 3 children and one daughter from complications from obesity. Other 2 children have no major medical problems. General Exam Limitations: no limitations General appearance: alert, in no apparent distress Head exam: Present: atraumatic, normocephalic Eye exam: Present: normal appearance ENT exam: Present: normal exam Neck exam: Present: normal inspection, tenderness Respiratory exam: Absent: normal lung sounds bilaterally, respiratory distress, wheezes Cardiovascular Exam: Present: tachycardia, irregular rhythm GI/Abdominal exam: Present: soft. Absent: distended, tenderness Extremities exam: Present: normal capillary refill Neurological exam: Present: alert, oriented X3, CN II-XII intact. Absent: motor sensory deficit Psychiatric exam: Present: normal affect, normal mood Skin exam: Present: warm, dry, intact. Absent: cyanosis, diaphoretic Course Vital Signs 01/06/22 01/06/22 13:06 14:47 Temperature 98.5 F Pulse Rate 117 H 106 H Respiratory 18 Rate Blood Pressure 137/76 143/114 O2 Sat by Pulse 97 98 Oximetry - Reevaluation(s) Reevaluation #1: 01/06/22 15:50 Patient has a scheduled appointment with Dr. Valenzuela in one week. I did discuss case with Dr. Valenzueal, recommends going to amiodarone 200 mg twice daily for 1 week. Patient is given return parameters. EKG Findings - EKG Comments: EKG Findings:: EKG: Atrial fibrillation with RVR, intraventricular conduction delay, ventricular rate of 110, QRS duration 139, QTC 461, no ST segment elevation. Medical Decision Making - Medical Decision Making 86-year-old male presents for evaluation of mild headache, dizziness, and palpitations. No associated chest pain or dyspnea. Patient well-appearing with stable vitals. He is in an A. fib which is at a rate of around the 100. The bl ood pressure is stable. Laboratory testing revealed mild anemia and mild chronic kidney disease which are most both at baseline. No leukocytosis. No negative troponin, negative coronavirus testing. Given the anticoagulation and headache I did perform CT imaging of the brain which is negative for intracranial hemorrhage or mass effect. 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 - Lab Data Result diagrams: 01/06/22 14:38 01/06/22 14:38 Lab Results 01/06/22 01/06/22 01/06/22 Range/Units 14:38 14:38 14:38 WBC 6.2 (3.8-10.6) k/uL RBC 3.78 L (4.30-5.90) m/uL Hgb 12.1 L (13.0-17.5) gm/dL Hct 37.6 L (39.0-53.0) % MCV 99.4 (80.0-100.0) fL MCH 32.1 (25.0-35.0) pg MCHC 32.3 (31.0-37.0) g/dL RDW 12.4 (11.5-15.5) % Plt Count 177 (150-450) k/uL MPV 7.9 Neutrophils % 72 % Lymphocytes % 20 % Monocytes % 4 % Eosinophils % 2 % Basophils % 1 % Neutrophils # 4.5 (1.3-7.7) k/uL Lymphocytes # 1.2 (1.0-4.8) k/uL Monocytes # 0.3 (0-1.0) k/uL Eosinophils # 0.1 (0-0.7) k/uL Basophils # 0.1 (0-0.2) k/uL PT 12.0 (9.0-12.0) sec INR 1.1 (<1.2) APTT 30.3 H (22.0-30.0) sec Sodium 133 L (137-145) mmol/L Potassium 4.6 (3.5-5.1) mmol/L Chloride 100 (98-107) mmol/L Carbon Dioxide 28 (22-30) mmol/L Anion Gap 5 mmol/L BUN 29 H (9-20) mg/dL Creatinine 1.37 H (0.66-1.25) mg/dL Est GFR (CKD-EPI)AfAm 54 (>60 ml/min/1.73 sqM) Est GFR (CKD-EPI)NonAf 47 (>60 ml/min/1.73 sqM) Glucose 111 H (74-99) mg/dL Calcium 8.7 (8.4-10.2) mg/dL Magnesium 2.3 (1.6-2.3) mg/dL Total Bilirubin 0.4 (0.2-1.3) mg/dL AST 26 (17-59) U/L ALT 16 (4-49) U/L Alkaline Phosphatase 60 (38-126) U/L Troponin I (0.000-0.034) ng/mL Total Protein 6.6 (6.3-8.2) g/dL Albumin 3.9 (3.5-5.0) g/dL Coronavirus (PCR) (Not Detectd) 01/06/22 01/06/22 Range/Units 14:38 14:38 WBC (3.8-10.6) k/uL RBC (4.30-5.90) m/uL Hgb (13.0-17.5) gm/dL Hct (39.0-53.0) % MCV (80.0-100.0) fL MCH (25.0-35.0) pg MCHC (31.0-37.0) g/dL RDW (11.5-15.5) % Plt Count (150-450) k/uL MPV Neutrophils % % Lymphocytes % % Monocytes % % Eosinophils % % Basophils % % Neutrophils # (1.3-7.7) k/uL Lymphocytes # (1.0-4.8) k/uL Monocytes # (0-1.0) k/uL Eosinophils # (0-0.7) k/uL Basophils # (0-0.2) k/uL PT (9.0-12.0) sec INR (<1.2) APTT (22.0-30.0) sec Sodium (137-145) mmol/L Potassium (3.5-5.1) mmol/L Chloride (98-107) mmol/L Carbon Dioxide (22-30) mmol/L Anion Gap mmol/L BUN (9-20) mg/dL Creatinine (0.66-1.25) mg/dL Est GFR (CKD-EPI)AfAm (>60 ml/min/1.73 sqM) Est GFR (CKD-EPI)NonAf (>60 ml/min/1.73 sqM) Glucose (74-99) mg/dL Calcium (8.4-10.2) mg/dL Magnesium (1.6-2.3) mg/dL Total Bilirubin (0.2-1.3) mg/dL AST (17-59) U/L ALT (4-49) U/L Alkaline Phosphatase (38-126) U/L Troponin I <0.012 (0.000-0.034) ng/mL Total Protein (6.3-8.2) g/dL Albumin (3.5-5.0) g/dL Coronavirus (PCR) Not Detected (Not Detectd) Disposition Clinical Impression: Atrial fibrillation Disposition: HOME SELF-CARE Condition: Fair Instructions (If sedation given, give patient instructions): A-fib (Atrial Fibrillation) (ED) Additional Instructions: Please take amiodarone 200 mg twice daily for 1 week. Is patient prescribed a controlled substance at d/c from ED?: No Referrals: Nehemiah Mosqueda DO [Primary Care Provider] - 1-2 days Gisela Valenzuela MD [Family Provider] - 1-2 days Time of Disposition: 15:52
--- NOTE | 2022-01-06 14:01 | CT ---
EXAMINATION TYPE: CT brain wo con CT DLP: 1099.4 mGycm, Automated exposure control for dose reduction was used. DATE OF EXAM: 01/06/2022 1:46 PM COMPARISON: None. CLINICAL INDICATION:Male, 86 years old with history of BROWNLEE, dizziness, BROWNLEE TECHNIQUE: Brain: Multiple axial CT images of the brain were obtained without IV contrast. FINDINGS: Brain: Extra-axial spaces: No abnormal extra-axial fluid collections. Ventricular system: Within normal limits Cerebral parenchyma: Cerebral atrophy. No acute intraparenchymal hemorrhage or mass effect. The jaimes -white junction is well differentiated. Scattered hypoattenuating areas are seen within the white mat ter. Cerebellum: Unremarkable. Mass effect: No evidence of midline shift. Intracranial vasculature: Atherosclerotic calcifications of the intracranial vessels. Soft tissues: Normal. Calvarium/osseous structures: No depressed skull fracture. Paranasal sinuses and mastoid air cells: Mild scattered paranasal sinus disease. Visualized orbits: Bilateral aphakia IMPRESSION: 1. No acute intracranial process. 2. Nonspecific white matter changes, likely secondary to chronic small vessel ischemic disease.
[2022-01-06 14:51] VITALS: BP 143/114; PULSE 106
[2022-01-06 15:01] LABS: Basophils # (A) 0.1 k/uL (0-0.2); Basophils % (A) 1 %; Eosinophils # (A) 0.1 k/uL (0-0.7); Eosinophils % (A) 2 %; HCT 37.6 % (39.0-53.0); HGB 12.1 gm/dL (13.0-17.5); Lymphocytes # (A) 1.2 k/uL (1.0-4.8); Lymphocytes % (A) 20 %; MCH 32.1 pg (25.0-35.0); MCHC 32.3 g/dL (31.0-37.0); MCV 99.4 fL (80.0-100.0); Mean Platelet Volume 7.9; Monocytes # (A) 0.3 k/uL (0-1.0); Monocytes % (A) 4 %; Neutrophils # (A) 4.5 k/uL (1.3-7.7); Neutrophils % (A) 72 %; Platelet Count 177 k/uL (150-450); RBC 3.78 m/uL (4.30-5.90); RDW 12.4 % (11.5-15.5); WBC 6.2 k/uL (3.8-10.6)
[2022-01-06 15:10] LABS: INR 1.1 (<1.2); Partial Thromboplastin Time 30.3 sec (22.0-30.0)
[2022-01-06 15:15] LABS: Albumin 3.9 g/dL (3.5-5.0); Calcium 8.7 mg/dL (8.4-10.2); Magnesium 2.3 mg/dL (1.6-2.3); Potassium 4.6 mmol/L (3.5-5.1); Total Bilirubin 0.4 mg/dL (0.2-1.3); Total Protein 6.6 g/dL (6.3-8.2)
== END 2022-01-06 17:06 | disposition home or self-care (01) ==
LOC: EC 13:05
DX: I48.91 Unspecified atrial fibrillation (principal); J45.909 Unspecified asthma, uncomplicated; I10 Essential (primary) hypertension; Z87.891 Personal history of nicotine dependence; Z20.822 Contact with and (suspected) exposure to COVID-19; Z88.0 Allergy status to penicillin; Z88.6 Allergy status to analgesic agent; Z91.048 Other nonmedicinal substance allergy status; Z88.8 Allergy status to other drugs, medicaments and biological substances
CPT/HCPCS: 36415; 70450; 80053; 83735; 84484; 85025; 85610; 85730; 87635; 93005; 96360; 96361; 99285

== ENCOUNTER 2023-10-18 02:45 | Emergency (ER) | payer MEDICARE ==
[2023-10-18 03:20] VITALS: RESP 16; TEMP 97.4
--- NOTE | 2023-10-18 03:21 | ED ---
General Adult HPI - General Chief complaint: Chest Pain Stated complaint: SOB chest pain Time Seen by Provider: 10/18/23 02:52 Source: patient, RN notes reviewed, old records reviewed Mode of arrival: wheelchair Limitations: no limitations - History of Present Illness Initial comments: 88-year-old male presenting with chest discomfort, dyspnea. History of atrial fibrillation, CHF. Patient reports orthopnea and decreased urine output. He is upper chest discomfort. No vomiting. No diaphoresis. Patient has been compliant with medications. Symptoms began several hours prior to arrival. - Related Data Home Medications Medication Instructions Recorded Confirmed Tamsulosin HCl [Flomax] 0.4 mg PO BID@0700,1900 07/12/14 08/16/22 Apixaban [Eliquis] 5 mg PO BID@0700,1900 09/12/19 08/16/22 Levothyroxine Sodium 100 mcg PO DAILY@0500 04/27/21 08/16/22 Multivit-Min/FA/Lycopen/Lutein 1 tab PO DAILY@1130 04/27/21 08/16/22 [Centrum Silver Tablet] Cholecalciferol (Vitamin D3) 125 mcg PO DAILY 08/13/22 08/16/22 [Vitamin D3 (125 MCG = 5,000 IU)] Furosemide [Lasix] 20 mg PO DAILY PRN 08/13/22 08/16/22 Metoprolol Tartrate [Lopressor] 50 mg PO BID 08/13/22 08/16/22 Midodrine [ProAmatine] 10 mg PO BID 08/13/22 08/16/22 Allergies Allergy/AdvReac Type Severity Reaction Status Date / Time isosorbide mononitrate Allergy Unknown Verified 10/18/23 02:54 [From Imdur] Penicillins Allergy Rash/Hives Verified 10/18/23 02:54 albuterol [From Ventolin HFA] AdvReac Rapid Verified 10/18/23 02:54 Heart Rate amiodarone HCl AdvReac LUNGS/EYE Verified 10/18/23 02:54 [From Cordarone] PROBLEMS codeine AdvReac Nausea & Verified 10/18/23 02:54 Vomiting enalapril maleate AdvReac Cough Verified 10/18/23 02:54 [From Vasotec] enalaprilat dihydrate AdvReac Cough Verified 10/18/23 02:54 [From Vasotec] hydromorphone HCl AdvReac Nausea & Verified 10/18/23 02:54 [From Dilaudid] Vomiting loratadine [From Claritin] AdvReac Rapid Verified 10/18/23 02:54 Heart Rate morphine AdvReac Nausea & Verified 10/18/23 02:54 Vomiting procainamide HCl AdvReac "FLUID ON Verified 10/18/23 02:54 [From Pronestyl] HEART" tetanus toxoid, adsorbed AdvReac "JOINT Verified 10/18/23 02:54 STIFFNESS" Review of Systems ROS Statement: Those systems with pertinent positive or pertinent negative responses have been documented in the HPI. ROS Other: All systems not noted in ROS Statement are negative. Past Medical History Past Medical History: Atrial Fibrillation, Atrial Flutter, Asthma, Heart Failure, GERD/Reflux, Hypertension, Osteoarthritis (OA), Pneumonia, Prostate Disorder, Skin Disorder, Sleep Apnea/CPAP/BIPAP Additional Past Medical History / Comment(s): SEE HISTORY DONE BY DR. PACHECO." "spot" on R lung/stable. KATHLEEN/no longer needs to use device. 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 Past Anesthesia/Blood Transfusion Reactions: No Reported Reaction Past Psychological History: No Psychological Hx Reported Smoking Status: Former smoker Past Alcohol Use History: None Reported Past Drug Use History: None Reported - Past Family History Mother Family Medical History: Cancer Additional Family Medical History / Comment(s): Mother at age 82 of lung cancer. Father Family Medical History: Cancer Additional Family Medical History / Comment(s): Father at age 80 of prostrate cancer. Brother(s) Family Medical History: Cancer Additional Family Medical History / Comment(s): Patient has a total of 6 brothers. One brother with history of atrial fibrillation and kidney cancer, second brother with valvular heart disease, third brother with Parkinson's. Daughter(s) Additional Family Medical History / Comment(s): . General Exam Limitations: no limitations General appearance: alert, in no apparent distress Head exam: Present: atraumatic, normocephalic Eye exam: Present: normal appearance, PERRL ENT exam: Present: normal exam Neck exam: Present: normal inspection. Absent: tenderness, meningismus Respiratory exam: Present: rales, decreased breath sounds. Absent: respiratory distress Cardiovascular Exam: Present: regular rate, irregular rhythm GI/Abdominal exam: Present: soft. Absent: distended, tenderness, guarding Extremities exam: Present: pedal edema Neurological exam: Present: alert, oriented X3, CN II-XII intact. Absent: motor sensory deficit Psychiatric exam: Present: normal affect, normal mood Skin exam: Present: warm, dry, intact Course Vital Signs 10/18/23 10/18/23 10/18/23 02:55 04:00 04:34 Temperature 97.4 F L Pulse Rate 106 H 91 96 Respiratory 16 18 16 Rate Blood Pressure 102/67 111/77 117/64 O2 Sat by Pulse 97 98 98 Oximetry Medical Decision Making - Medical Decision Making Was pt. sent in by a medical professional or institution ([facility], [employer], urgent care, hospital, or assisted...) When possible be specific @ -No Did you speak to anyone other than the patient for history (EMS, parent, family, police, friend...)? What history was obtained from this source @ -No Did you review nursing and triage notes (agree or disagree)? Why? @ -I reviewed and agree with nursing and triage notes Were old charts reviewed (outside hosp., previous admission, EMS record, old EKG, old radiological studies, urgent care reports/EKG's, assisted records)? Report findings @ -No old charts were reviewed Differential Diagnosis Coronary syndrome, arrhythmia, tamponade, asthma, COPD, pulmonary embolism, pneumonia, pneumothorax, pulmonary effusion, anaphylaxis, diabetic ketoacidosis, flailed chest, pulmonary contusion, diaphragmatic rupture, anemia, neuromuscular, this is not meant to be an all-inclusive list. EKG interpreted by me (3pts min.). @ -Atrial fibrillation with left bundle branch block rate of 87, QRS duration 183, QTc 506, history of left bundle branch block X-rays interpreted by me (1pt min.). @Cardiomegaly with trace bilateral pleural effusion CT interpreted by me (1pt min.). @ -None done U/S interpreted by me (1pt. min.). @ -None done What testing was considered but not performed or refused? (CT, X-rays, U/S, labs)? Why? @ -None What meds were considered but not given or refused? Why? @ -None Did you discuss the management of the patient with other professionals (pr ofessionals i.e. , PA, [employer], lab, RT, psych nurse, social insurance analyst, road production general manager, teacher, navigation officer, rn field case manager)? Give summary @ -No Was smoking cessation discussed for >3mins.? @ -No Was critical care preformed (if so, how long)? @ -No Were there social determinants of health that impacted care today? How? (Homelessness, low income, unemployed, alcoholism, drug addiction, transportation, low edu. Level, literacy, decrease access to med. care, group home, rehab)? @ -No Was there de-escalation of care discussed even if they declined (Discuss DNR or withdrawal of care, Hospice)? DNR status @ -No What co-morbidities impacted this encounter? (DM, HTN, Smoking, COPD, CAD, Cancer, CVA, ARF, Chemo, Hep., AIDS, mental health diagnosis, sleep apnea, morbid obesity)? @ -CHF, atrial fibrillation. Was patient admitted / discharged? Hospital course, mention meds given and route, prescriptions, significant lab abnormalities, going to OR and other pertinent info. @ -88-year-old male with dyspnea, chest discomfort, history of atrial fibrillation with CHF. Patient is in atrial fibs which is rate controlled. Blood pressure and oxygenation are stable. Laboratory testing reveals normal CBC, CMP shows chronic stable kidney disease, elevated BNP at 9000, negative troponin. I did plan to admit this patient for monitoring given the chest pain and diuresis for CHF. Patient and patient's prefer discharge. They state they will contact the butt trimmer tomorrow. Vital signs are stable and the workup does show chronic abnormalities. The patient and are given return parameters and should feel free to return with any changes, worsening or changing symptoms. Undiagnosed new problem with uncertain prognosis? @ -No Drug Therapy requiring intensive monitoring for toxicity (Heparin, Nitro, Insulin, Cardizem)? @ -No Were any procedures done? @ -No Diagnosis/symptom? @ -CHF Acute, or Chronic, or Acute on Chronic? @ -Acute on chronic Uncomplicated (without systemic symptoms) or Complicated (systemic symptoms)? @ -Default Side effects of treatment? @ -No Exacerbation, Progression, or Severe Exacerbation? @ -No Poses a threat to life or bodily function? How? (Chest pain, [place], [place], pneumonia, PE, COPD, DKA, ARF, appy, cholecystitis, CVA, Diverticulitis, Homicidal, Suicidal, threat to staff... and all critical care pts) @ -[Moderate risk, CHF, chest pain - Lab Data Result diagrams: 10/18/23 03:19 10/18/23 03:19 Lab Results 10/18/23 10/18/23 10/18/23 Range/Units 03:19 03:19 03:19 WBC 5.8 (3.8-10.6) k/uL RBC 4.60 (4.30-5.90) m/uL Hgb 15.0 (13.0-17.5) gm/dL Hct 46.1 (39.0-53.0) % MCV 100.2 H (80.0-100.0) fL MCH 32.5 (25.0-35.0) pg MCHC 32.4 (31.0-37.0) g/dL RDW 13.3 (11.5-15.5) % Plt Count 134 L (150-450) k/uL MPV 9.1 Neutrophils % 66 % Lymphocytes % 25 % Monocytes % 5 % Eosinophils % 2 % Basophils % 1 % Neutrophils # 3.8 (1.3-7.7) k/uL Lymphocytes # 1.5 (1.0-4.8) k/uL Monocytes # 0.3 (0-1.0) k/uL Eosinophils # 0.1 (0-0.7) k/uL Basophils # 0.0 (0-0.2) k/uL PT 13.0 H (10.0-12.5) sec INR 1.2 H (<1.2) APTT 29.0 (22.0-30.0) sec Sodium 136 L (137-145) mmol/L Potassium 4.6 (3.5-5.1) mmol/L Chloride 101 (98-107) mmol/L Carbon Dioxide 26 (22-30) mmol/L Anion Gap 9 mmol/L BUN 49 H (9-20) mg/dL Creatinine 1.64 H (0.66-1.25) mg/dL Est GFR (CKD-EPI)AfAm 43 (>60 ml/min/1.73 sqM) Est GFR (CKD-EPI)NonAf 37 (>60 ml/min/1.73 sqM) Glucose 100 H (74-99) mg/dL Calcium 9.6 (8.4-10.2) mg/dL Magnesium 2.6 H (1.6-2.3) mg/dL Total Bilirubin 0.7 (0.2-1.3) mg/dL AST 54 (17-59) U/L ALT 52 H (4-49) U/L Alkaline Phosphatase 68 (38-126) U/L Troponin I (0.000-0.034) ng/mL NT-Pro-B Natriuret Pep 9920 pg/mL Total Protein 7.1 (6.3-8.2) g/dL Albumin 4.3 (3.5-5.0) g/dL 10/18/23 Range/Units 03:19 WBC (3.8-10.6) k/uL RBC (4.30-5.90) m/uL Hgb (13.0-17.5) gm/dL Hct (39.0-53.0) % MCV (80.0-100.0) fL MCH (25.0-35.0) pg MCHC (31.0-37.0) g/dL RDW (11.5-15.5) % Plt Count (150-450) k/uL MPV Neutrophils % % Lymphocytes % % Monocytes % % Eosinophils % % Basophils % % Neutrophils # (1.3-7.7) k/uL Lymphocytes # (1.0-4.8) k/uL Monocytes # (0-1.0) k/uL Eosinophils # (0-0.7) k/uL Basophils # (0-0.2) k/uL PT (10.0-12.5) sec INR (<1.2) APTT (22.0-30.0) sec Sodium (137-145) mmol/L Potassium (3.5-5.1) mmol/L Chloride (98-107) mmol/L Carbon Dioxide (22-30) mmol/L Anion Gap mmol/L BUN (9-20) mg/dL Creatinine (0.66-1.25) mg/dL Est GFR (CKD-EPI)AfAm (>60 ml/min/1.73 sqM) Est GFR (CKD-EPI)NonAf (>60 ml/min/1.73 sqM) Glucose (74-99) mg/dL Calcium (8.4-10.2) mg/dL Magnesium (1.6-2.3) mg/dL Total Bilirubin (0.2-1.3) mg/dL AST (17-59) U/L ALT (4-49) U/L Alkaline Phosphatase (38-126) U/L Troponin I <0.012 (0.000-0.034) ng/mL NT-Pro-B Natriuret Pep pg/mL Total Protein (6.3-8.2) g/dL Albumin (3.5-5.0) g/dL Disposition Clinical Impression: Chest pain, Atrial fibrillation, CHF (congestive heart failure) Disposition: HOME SELF-CARE Condition: Fair Instructions (If sedation given, give patient instructions): Heart Failure (DC) Is patient prescribed a controlled substance at d/c from ED?: No Referrals: Nehemiah Mosqueda DO [Primary Care Provider] - 1-2 days Gisela Pacheco MD [STAFF PHYSICIAN] - 1-2 days Time of Disposition: 04:34
[2023-10-18 03:40] LABS: Basophils % (A) 1 %; Eosinophils # (A) 0.1 k/uL (0-0.7); Eosinophils % (A) 2 %; HCT 46.1 % (39.0-53.0); Lymphocytes # (A) 1.5 k/uL (1.0-4.8); Lymphocytes % (A) 25 %; MCH 32.5 pg (25.0-35.0); MCHC 32.4 g/dL (31.0-37.0); MCV 100.2 fL (80.0-100.0); Mean Platelet Volume 9.1; Monocytes # (A) 0.3 k/uL (0-1.0); Monocytes % (A) 5 %; Neutrophils # (A) 3.8 k/uL (1.3-7.7); Neutrophils % (A) 66 %; Platelet Count 134 k/uL (150-450); RDW 13.3 % (11.5-15.5); WBC 5.8 k/uL (3.8-10.6)
[2023-10-18 03:54] LABS: ALT 52 U/L (4-49); AST 54 U/L (17-59); African American GFR (CKD) 43 (>60 ml/min/1.73 sqM); Albumin 4.3 g/dL (3.5-5.0); Alkaline Phosphatase 68 U/L (38-126); Anion Gap 9 mmol/L; Blood Urea Nitrogen 49 mg/dL (9-20); Calcium 9.6 mg/dL (8.4-10.2); Carbon Dioxide 26 mmol/L (22-30); Chloride 101 mmol/L (98-107); Glucose 100 mg/dL (74-99); Magnesium 2.6 mg/dL (1.6-2.3); Non-African American GFR(CKD) 37 (>60 ml/min/1.73 sqM); Potassium 4.6 mmol/L (3.5-5.1); Sodium 136 mmol/L (137-145); Total Bilirubin 0.7 mg/dL (0.2-1.3); Total Protein 7.1 g/dL (6.3-8.2)
[2023-10-18 03:57] LABS: INR 1.2 (<1.2)
[2023-10-18 04:00] LABS: NT-Pro-B-Type Natriuretic Pept 9920 pg/mL
[2023-10-18] MEDS: FUROSEMIDE 10 MG/ML 4 ML VIAL IV STA (04:42)
[2023-10-18 05:14] VITALS: BP 117/64; PULSE 96
--- NOTE | 2023-10-18 05:45 | XR ---
EXAMINATION TYPE: XR chest 2V DATE OF EXAM: 10/18/2023 COMPARISON: Chest x-ray September 10, 2022 HISTORY: Chest pain TECHNIQUE: Frontal and lateral views of the chest are obtained. FINDINGS: There is no suspicious new focal air space opacity, pleural effusion, or pneumothorax seen . Cardiomegaly is redemonstrated. The osseous structures are intact. IMPRESSION: Cardiomegaly without acute pulmonary process. No Significant change from most recent duglas or.
== END 2023-10-18 04:52 | disposition home or self-care (01) ==
LOC: EC 02:45
DX: I48.91 Unspecified atrial fibrillation (principal); I13.0 Hypertensive heart and chronic kidney disease with heart failure and stage 1 through stage 4 chronic kidney disease, or unspecified chronic kidney disease; I50.9 Heart failure, unspecified; N18.9 Chronic kidney disease, unspecified; R79.89 Other specified abnormal findings of blood chemistry; Z88.0 Allergy status to penicillin; Z88.5 Allergy status to narcotic agent; Z88.7 Allergy status to serum and vaccine; Z88.8 Allergy status to other drugs, medicaments and biological substances; Z87.891 Personal history of nicotine dependence; Z79.01 Long term (current) use of anticoagulants; Z79.899 Other long term (current) drug therapy
CPT/HCPCS: 36415; 93005; 83880; 80053; 83735; 84484; 85025; 85610; 85730; 71046; 99285; 96374; J1940

== ENCOUNTER 2023-11-02 14:34 | Emergency (ER) | payer MEDICARE ==
[2023-11-02 15:02] VITALS: TEMP 98.2
[2023-11-02 15:43] LABS: Basophils % (A) 1 %; Eosinophils # (A) 0.2 k/uL (0-0.7); Eosinophils % (A) 3 %; HCT 42.8 % (39.0-53.0); HGB 13.6 gm/dL (13.0-17.5); Lymphocytes # (A) 1.1 k/uL (1.0-4.8); Lymphocytes % (A) 22 %; MCH 31.5 pg (25.0-35.0); MCHC 31.7 g/dL (31.0-37.0); MCV 99.2 fL (80.0-100.0); Mean Platelet Volume 9.4; Monocytes # (A) 0.4 k/uL (0-1.0); Monocytes % (A) 7 %; Neutrophils # (A) 3.4 k/uL (1.3-7.7); Neutrophils % (A) 66 %; Platelet Count 132 k/uL (150-450); RBC 4.31 m/uL (4.30-5.90); RDW 12.9 % (11.5-15.5); WBC 5.2 k/uL (3.8-10.6)
[2023-11-02 16:04] LABS: ALT 30 U/L (4-49); AST 37 U/L (17-59); African American GFR (CKD) 49 (>60 ml/min/1.73 sqM); Albumin 3.8 g/dL (3.5-5.0); Alkaline Phosphatase 60 U/L (38-126); Anion Gap 6 mmol/L; Blood Urea Nitrogen 47 mg/dL (9-20); Calcium 8.9 mg/dL (8.4-10.2); Carbon Dioxide 31 mmol/L (22-30); Chloride 102 mmol/L (98-107); Glucose 90 mg/dL (74-99); Non-African American GFR(CKD) 42 (>60 ml/min/1.73 sqM); Potassium 4.1 mmol/L (3.5-5.1); Sodium 139 mmol/L (137-145); Total Bilirubin 0.6 mg/dL (0.2-1.3); Total Protein 6.3 g/dL (6.3-8.2)
[2023-11-02] MEDS: CYCLOBENZAPRINE 10 MG TAB PO STA (16:06)
[2023-11-02] MEDS: LIDOCAINE 4% PATCH TOPICAL ONE (16:07)
[2023-11-02 16:11] LABS: NT-Pro-B-Type Natriuretic Pept 8930 pg/mL
--- NOTE | 2023-11-02 16:19 | XR ---
EXAMINATION TYPE: XR ribs RT w pa chest xray, 6 views DATE OF EXAM: 11/02/2023 COMPARISON: 10/18/2023 HISTORY: 88-year-old male with cough, right-sided pain, back pain FINDINGS: The heart is mildly enlarged. Interstitial density. No consolidation or pleural effusion. Some degenerative change at the right glenohumeral joint. Moderate degenerative change right AC joint . The appearance of an old healed right posterolateral seventh and eighth ribs. No acute displaced frac ture is identified. IMPRESSION: 1. Mild cardiomegaly and chronic appearing changes. No definite acute process. 2. Old healed right seventh and eighth rib fractures. No displaced fracture seen.
[2023-11-02 16:57] VITALS: BP 119/65; PULSE 96; RESP 18
--- NOTE | 2023-11-02 16:59 | ED ---
General Adult HPI - General Chief complaint: Back Pain/Injury Stated complaint: Pain in R side Time Seen by Provider: 11/02/23 14:58 Source: patient Mode of arrival: wheelchair Limitations: no limitations - History of Present Illness Initial comments: 88-year-old male who presents emergency department reporting to right sided chest wall pain. Pain has been exacerbated for the past couple of days however patient has had this pain previously in the past and has been seen several years ago for the same complaint. Patient has previously fallen and broken ribs on that side. He denies any new injuries. States that the pain is worse with palpation as well as movement of his right arm. Patient has difficulty changing positions as he states the pain "grabs" him. He has been taking Tylenol. He does take Eliquis and therefore he is unable to take certain medications [id number] for pain. He denies any difficulty breathing. No nausea, vomiting or diaphoresis. Denies any anterior chest wall pain. No other alleviating, precipitating or modifying factors - Related Data Home Medications Medication Instructions Recorded Confirmed Tamsulosin HCl [Flomax] 0.4 mg PO BID@0700,1800 07/12/14 11/02/23 Multivit-Min/FA/Lycopen/Lutein 1 tab PO DAILY 04/27/21 11/02/23 [Centrum Silver Tablet] Cholecalciferol (Vitamin D3) 125 mcg PO DAILY 08/13/22 11/02/23 [Vitamin D3 (125 MCG = 5,000 IU)] Metoprolol Tartrate [Lopressor] 50 mg PO TID@0700,1300,1800 08/13/22 11/02/23 Midodrine [ProAmatine] 5 mg PO TID@0700,1300,1800 08/13/22 11/02/23 Apixaban [Eliquis] 2.5 mg PO BID 11/02/23 11/02/23 Empagliflozin [Jardiance] 10 mg PO DAILY 11/02/23 11/02/23 Furosemide [Lasix] 40 mg PO BID@0800,1400 11/02/23 11/02/23 Isosorbide Mononitrate ER [Imdur] 15 mg PO DAILY 11/02/23 11/02/23 Levothyroxine Sodium [Synthroid] 88 mcg PO DAILY@0500 11/02/23 11/02/23 Melatonin 6 mg PO HS 11/02/23 11/02/23 Nitroglycerin Sl Tabs [Nitrostat] 0.4 mg SUBLINGUAL Q5M PRN 11/02/23 11/02/23 Previous Rx's Medication Instructions Recorded Lidocaine 5% Patch [Lidoderm] 1 patch TOPICAL DAILY #25 patch 11/02/23 Cyclobenzaprine [Flexeril] 5 mg PO TID #15 tablet 11/07/23 Ibuprofen [Motrin] 600 mg PO Q6HR PRN #20 tab 11/07/23 Allergies Allergy/AdvReac Type Severity Reaction Status Date / Time isosorbide mononitrate Allergy Unknown Verified 11/07/23 05:01 [From Imdur] Penicillins Allergy Rash/Hives Verified 11/07/23 05:01 albuterol [From Ventolin HFA] AdvReac Rapid Verified 11/07/23 05:01 Heart Rate amiodarone HCl AdvReac LUNGS/EYE Verified 11/07/23 05:01 [From Cordarone] PROBLEMS codeine AdvReac Nausea & Verified 11/07/23 05:01 Vomiting enalapril maleate AdvReac Cough Verified 11/07/23 05:01 [From Vasotec] enalaprilat dihydrate AdvReac Cough Verified 11/07/23 05:01 [From Vasotec] hydromorphone HCl AdvReac Nausea & Verified 11/07/23 05:01 [From Dilaudid] Vomiting loratadine [From Claritin] AdvReac Rapid Verified 11/07/23 05:01 Heart Rate morphine AdvReac Nausea & Verified 11/07/23 05:01 Vomiting procainamide HCl AdvReac "FLUID ON Verified 11/07/23 05:01 [From Pronestyl] HEART" tetanus toxoid, adsorbed AdvReac "JOINT Verified 11/07/23 05:01 STIFFNESS" Review of Systems ROS Statement: Those systems with pertinent positive or pertinent negative responses have been documented in the HPI. ROS Other: All systems not noted in ROS Statement are negative. Past Medical History Past Medical History: Atrial Fibrillation, Atrial Flutter, Asthma, Heart Failure, GERD/Reflux, Hypertension, Osteoarthritis (OA), Pneumonia, Prostate Disorder, Skin Disorder, Sleep Apnea/CPAP/BIPAP Additional Past Medical History / Comment(s): SEE HISTORY DONE BY DR. PACHECO." "spot" on R lung/stable. KATHLEEN/no longer needs to use device. 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 Past Anesthesia/Blood Transfusion Reactions: No Reported Reaction Past Psychological History: No Psychological Hx Reported Smoking Status: Former smoker Past Alcohol Use History: None Reported Past Drug Use History: None Reported - Past Family History Mother Family Medical History: Cancer Additional Family Medical History / Comment(s): Mother at age 82 of lung cancer. Father Family Medical History: Cancer Additional Family Medical History / Comment(s): Father at age 80 of prostrate cancer. Brother(s) Family Medical History: Cancer Additional Family Medical History / Comment(s): Patient has a total of 6 br others. One brother with history of atrial fibrillation and kidney cancer, second brother with valvular heart disease, third brother with Parkinson's. Daughter(s) Additional Family Medical History / Comment(s): . General Exam Limitations: no limitations General appearance: alert, in no apparent distress Head exam: Present: atraumatic, normocephalic, normal inspection Eye exam: Present: normal appearance, PERRL, EOMI. Absent: scleral icterus, conjunctival injection, periorbital swelling ENT exam: Present: normal exam, mucous membranes moist Neck exam: Present: normal inspection. Absent: tenderness, meningismus, lymphadenopathy Respiratory exam: Present: normal lung sounds bilaterally, chest wall tenderness (To the right lateral chest wall near ribs 4 through 8. No step-offs or deformities. No overlying rash. No ecchymosis). Absent: respiratory distress, wheezes, rales, rhonchi, stridor Cardiovascular Exam: Present: regular rate, normal rhythm, normal heart sounds. Absent: systolic murmur, diastolic murmur, rubs, gallop, clicks GI/Abdominal exam: Present: soft, normal bowel sounds. Absent: distended, tende rness, guarding, rebound, rigid Extremities exam: Present: normal inspection, full ROM, normal capillary refill. Absent: tenderness, pedal edema, joint swelling, calf tenderness Back exam: Present: normal inspection Neurological exam: Present: alert, oriented X3, CN II-XII intact Psychiatric exam: Present: normal affect, normal mood Skin exam: Present: warm, dry, intact, normal color. Absent: rash Course Vital Signs 11/02/23 11/02/23 11/02/23 14:36 15:03 16:49 Temperature 98.2 F Pulse Rate 91 102 H 96 Respiratory 18 20 18 Rate Blood Pressure 105/69 94/62 119/65 O2 Sat by Pulse 98 97 97 Oximetry Medical Decision Making - Medical Decision Making Was pt. sent in by a medical professional or institution (, [facility], CV TECH, urgent care, hospital, or fci...) When possible be specific @ -No Did you speak to anyone other than the patient for history (EMS, parent, family, police, friend...)? What history was obtained from this source @ -Spoke with the patient's Did you review nursing and triage notes (agree or disagree)? Why? @ -I reviewed and agree with nursing and triage notes Were old charts reviewed (outside hosp., previous admission, EMS record, old EKG, old radiological studies, urgent care reports/EKG's, fci records)? Report findings @ -I reviewed previous ED visits for same complaint Differential Diagnosis (chest pain, altered mental status, abdominal pain women, abdominal pain men, vaginal bleeding, weakness, fever, dyspnea, syncope, headache, dizziness, GI bleed, back pain, seizure, CVA, palpatations, mental health, musculoskeletal)? @ -Differential Musculoskeletal Muscular strain, contusion, ligament sprain, fracture, arthritis, septic arthritis, bursitis, cellulitis, muscle spasm, nerve compression, DVT, arterial occlusion, herpes zoster, electrolyte abnormality, tumor.... This is not meant to be in all inclusive list EKG interpreted by me (3pts min.). @ -Yes and demonstrates A-fib with a rate of 89. QRS 177. QTc of 510. No acute ST segment elevations or depressions X-rays interpreted by me (1pt min.). @ -Yes and demonstrates previous rib fractures on the right CT interpreted by me (1pt min.). @ -None done U/S interpreted by me (1pt. min.). @ -None done What testing was considered but not performed or refused? (CT, X-rays, U/S, labs)? Why? @ -None What meds were considered but not given or refused? Why? @ -None Did you discuss the management of the patient with other professionals (professionals i.e. , PA, CV TECH, lab, RT, psych nurse, social media sr strategy manager, can sterilizer, teacher, purchasing officer, sample case porter)? Give summary @ -No Was smoking cessation discussed for >3mins.? @ -No Was critical care preformed (if so, how long)? @ -No Were there social determinants of health that impacted care today? How? (Homelessness, low income, unemployed, alcoholism, drug addiction, t ransportation, low edu. Level, literacy, decrease access to med. care, nursing home, rehab)? @ -No Was there de-escalation of care discussed even if they declined (Discuss DNR or withdrawal of care, Hospice)? DNR status @ -No What co-morbidities impacted this encounter? (DM, HTN, Smoking, COPD, CAD, Cance r, CVA, ARF, Chemo, Hep., AIDS, mental health diagnosis, sleep apnea, morbid obesity)? @ -A-fib Was patient admitted / discharged? Hospital course, mention meds given and route, prescriptions, significant lab abnormalities, going to OR and other pertinent info. @ -Upon arrival patient was seen and evaluated in room 9. Thorough history and physical exam was performed. Pain is reproducible upon palpation and movement. Pain seems consistent with a musculoskeletal strain. X-rays are obtained which demonstrate old rib fractures. No new injuries. No pneumothorax. Patient was given a Lidoderm patch and muscle relaxers. He states that he is able to move around without significant pain. He will be discharged home with a prescription for lidocaine patches. He is also given a Flexeril starter pack. He needs to follow-up with primary care doctor for reevaluation return for any new or wo rsening symptoms Undiagnosed new problem with uncertain prognosis? @ -No Drug Therapy requiring intensive monitoring for toxicity (Heparin, Nitro, Insulin, Cardizem)? @ -No Were any procedures done? @ -No Diagnosis/symptom? @ -Acute right lateral chest wall pain Acute, or Chronic, or Acute on Chronic? @ -Acute Uncomplicated (without systemic symptoms) or Complicated (systemic symptoms)? @ -Uncomplicated Side effects of treatment? @ -No Exacerbation, Progression, or Severe Exacerbation? @ -No Poses a threat to life or bodily function? How? (Chest pain, [place], [place], pneumonia, PE, COPD, DKA, ARF, appy, cholecystitis, CVA, Diverticulitis, Homicidal, Suicidal, threat to staff... and all critical care pts) @ -No - Lab Data Result diagrams: 11/02/23 15:20 11/02/23 15:20 Lab Results 11/02/23 11/02/23 Range/Units 15:20 15:20 WBC 5.2 (3.8-10.6) k/uL RBC 4.31 (4.30-5.90) m/uL Hgb 13.6 (13.0-17.5) gm/dL Hct 42.8 (39.0-53.0) % MCV 99.2 (80.0-100.0) fL MCH 31.5 (25.0-35.0) pg MCHC 31.7 (31.0-37.0) g/dL RDW 12.9 (11.5-15.5) % Plt Count 132 L (150-450) k/uL MPV 9.4 Neutrophils % 66 % Lymphocytes % 22 % Monocytes % 7 % Eosinophils % 3 % Basophils % 1 % Neutrophils # 3.4 (1.3-7.7) k/uL Lymphocytes # 1.1 (1.0-4.8) k/uL Monocytes # 0.4 (0-1.0) k/uL Eosinophils # 0.2 (0-0.7) k/uL Basophils # 0.0 (0-0.2) k/uL Sodium 139 (137-145) mmol/L Potassium 4.1 (3.5-5.1) mmol/L Chloride 102 (98-107) mmol/L Carbon Dioxide 31 H (22-30) mmol/L Anion Gap 6 mmol/L BUN 47 H (9-20) mg/dL Creatinine 1.48 H (0.66-1.25) mg/dL Est GFR (CKD-EPI)AfAm 49 (>60 ml/min/1.73 sqM) Est GFR (CKD-EPI)NonAf 42 (>60 ml/min/1.73 sqM) Glucose 90 (74-99) mg/dL Calcium 8.9 (8.4-10.2) mg/dL Total Bilirubin 0.6 (0.2-1.3) mg/dL AST 37 (17-59) U/L ALT 30 (4-49) U/L Alkaline Phosphatase 60 (38-126) U/L NT-Pro-B Natriuret Pep 8930 pg/mL Total Protein 6.3 (6.3-8.2) g/dL Albumin 3.8 (3.5-5.0) g/dL Disposition Clinical Impression: Right flank pain, Musculoskeletal back pain Disposition: HOME SELF-CARE Condition: Stable Instructions (If sedation given, give patient instructions): Flank Pain (ED) Additional Instructions: Please use the medications as directed. Warm compress to the site. follow-up with your doctor and return for any new or worsening symptoms Prescriptions: Lidocaine 5% Patch [Lidoderm] 1 patch TOPICAL DAILY #25 patch Is patient prescribed a controlled substance at d/c from ED?: No Referrals: Nehemiah Mosqueda DO [Primary Care Provider] - 1-2 days Time of Disposition: 16:59
[2023-11-02] MEDS: CYCLOBENZAPRINE 10MG STARTER 3 TAB BTL PO STA (17:09)
== END 2023-11-02 17:11 | disposition home or self-care (01) ==
LOC: EC 14:34
DX: M79.18 Myalgia, other site (principal); R10.9 Unspecified abdominal pain; R07.89 Other chest pain; Z87.891 Personal history of nicotine dependence; Z88.0 Allergy status to penicillin; Z88.5 Allergy status to narcotic agent; Z88.7 Allergy status to serum and vaccine; Z88.8 Allergy status to other drugs, medicaments and biological substances
CPT/HCPCS: 36415; 80053; 83880; 85025; 93005; 99284

== ENCOUNTER 2023-11-07 04:53 | Emergency (ER) | payer MEDICARE ==
[2023-11-07 05:02] VITALS: TEMP 98.5
[2023-11-07] MEDS: fentaNYL (PF) 50 MCG/ML 2 ML AMP IVP STA (05:59)
[2023-11-07 06:12] LABS: Basophils % (A) 1 %; Eosinophils # (A) 0.2 k/uL (0-0.7); Eosinophils % (A) 4 %; HCT 45.8 % (39.0-53.0); HGB 14.4 gm/dL (13.0-17.5); Lymphocytes # (A) 1.3 k/uL (1.0-4.8); Lymphocytes % (A) 25 %; MCH 31.7 pg (25.0-35.0); MCHC 31.5 g/dL (31.0-37.0); MCV 100.8 fL (80.0-100.0); Mean Platelet Volume 8.8; Monocytes # (A) 0.4 k/uL (0-1.0); Monocytes % (A) 7 %; Neutrophils # (A) 3.3 k/uL (1.3-7.7); Neutrophils % (A) 62 %; Platelet Count 133 k/uL (150-450); RBC 4.54 m/uL (4.30-5.90); WBC 5.3 k/uL (3.8-10.6)
--- NOTE | 2023-11-07 06:15 | ED ---
Back Pain HPI - General Source: patient Limitations: no limitations - History of Present Illness Complaint: back pain Onset/Timin -: week(s) Similar Symptoms Previously: Yes Place: home Radiation: none Severity: moderate Quality: aching Consistency: constant Improves With: none Associated Symptoms: denies other symptoms Treatments Prior to Arrival: other medications <Immanuel Camejo - Last Filed: 11/07/23 06:11> <Juanito Brewer - Last Filed: 11/07/23 08:38> - General Chief Complaint: Back Pain/Injury Stated Complaint: Back Pain Time Seen by Provider: 11/07/23 05:17 - History of Present Illness Initial Comments: This patient is an 88-year-old man who presents to evaluation for right low back/flank pain. The pain has been going on approximately 1 week. He had been seen here for the same symptoms on November 01. The patient states he was told that he had a muscle strain. Patient has been using lidocaine patches and Flexeril. He states that his pain has not really changed. This morning he states that the pain got worse so he presents to have further evaluation. Patient has not had weakness or numbness to the legs. He has not had change in urination or bowel movements. (Immanuel Camejo) - Related Data Home Medications Medication Instructions Recorded Confirmed Tamsulosin HCl [Flomax] 0.4 mg PO BID@0700,1800 07/12/14 11/02/23 Multivit-Min/FA/Lycopen/Lutein 1 tab PO DAILY 04/27/21 11/02/23 [Centrum Silver Tablet] Cholecalciferol (Vitamin D3) 125 mcg PO DAILY 08/13/22 11/02/23 [Vitamin D3 (125 MCG = 5,000 IU)] Metoprolol Tartrate [Lopressor] 50 mg PO TID@0700,1300,1800 08/13/22 11/02/23 Midodrine [ProAmatine] 5 mg PO TID@0700,1300,1800 08/13/22 11/02/23 Apixaban [Eliquis] 2.5 mg PO BID 11/02/23 11/02/23 Empagliflozin [Jardiance] 10 mg PO DAILY 11/02/23 11/02/23 Furosemide [Lasix] 40 mg PO BID@0800,1400 11/02/23 11/02/23 Isosorbide Mononitrate ER [Imdur] 15 mg PO DAILY 11/02/23 11/02/23 Levothyroxine Sodium [Synthroid] 88 mcg PO DAILY@0500 11/02/23 11/02/23 Melatonin 6 mg PO HS 11/02/23 11/02/23 Nitroglycerin Sl Tabs [Nitrostat] 0.4 mg SUBLINGUAL Q5M PRN 11/02/23 11/02/23 Previous Rx's Medication Instructions Recorded Lidocaine 5% Patch [Lidoderm] 1 patch TOPICAL DAILY #25 patch 11/02/23 Cyclobenzaprine [Flexeril] 5 mg PO TID #15 tablet 11/07/23 Ibuprofen [Motrin] 600 mg PO Q6HR PRN #20 tab 11/07/23 Allergies Allergy/AdvReac Type Severity Reaction Status Date / Time isosorbide mononitrate Allergy Unknown Verified 11/07/23 05:01 [From Imdur] Penicillins Allergy Rash/Hives Verified 11/07/23 05:01 albuterol [From Ventolin HFA] AdvReac Rapid Verified 11/07/23 05:01 Heart Rate amiodarone HCl AdvReac LUNGS/EYE Verified 11/07/23 05:01 [From Cordarone] PROBLEMS codeine AdvReac Nausea & Verified 11/07/23 05:01 Vomiting enalapril maleate AdvReac Cough Verified 11/07/23 05:01 [From Vasotec] enalaprilat dihydrate AdvReac Cough Verified 11/07/23 05:01 [From Vasotec] hydromorphone HCl AdvReac Nausea & Verified 11/07/23 05:01 [From Dilaudid] Vomiting loratadine [From Claritin] AdvReac Rapid Verified 11/07/23 05:01 Heart Rate morphine AdvReac Nausea & Verified 11/07/23 05:01 Vomiting procainamide HCl AdvReac "FLUID ON Verified 11/07/23 05:01 [From Pronestyl] HEART" tetanus toxoid, adsorbed AdvReac "JOINT Verified 11/07/23 05:01 STIFFNESS" Review of Systems ROS Other: All systems not noted in ROS Statement are negative. Constitutional: Denies: fever, chills Respiratory: Denies: cough, dyspnea Cardiovascular: Denies: chest pain, edema Gastrointestinal: Denies: abdominal pain, nausea, vomiting, diarrhea, constipation Genitourinary: Denies: dysuria, hematuria, testicular pain Musculoskeletal: Reports: as per HPI, back pain Skin: Denies: rash Neurological: Denies: headache, weakness <Immanuel Camejo - Last Filed: 11/07/23 06:11> ROS Other: All systems not noted in ROS Statement are negative. <BrewerSilverioe - Last Filed: 11/07/23 08:38> ROS Statement: Those systems with pertinent positive or pertinent negative responses have been documented in the HPI. Past Medical History Past Medical History: Atrial Fibrillation, Atrial Flutter, Asthma, Heart Fa ilure, GERD/Reflux, Hypertension, Osteoarthritis (OA), Pneumonia, Prostate Disorder, Skin Disorder, Sleep Apnea/CPAP/BIPAP Additional Past Medical History / Comment(s): SEE HISTORY DONE BY DR. PACHECO." "spot" on R lung/stable. KATHLEEN/no longer needs to use device. 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 Past Anesthesia/Blood Transfusion Reactions: No Reported Reaction Past Psychological History: No Psychological Hx Reported Smoking Status: Former smoker Past Alcohol Use History: None Reported Past Drug Use History: None Reported - Past Family History Mother Family Medical History: Cancer Additional Family Medical History / Comment(s): Mother at age 82 of lung cancer. Father Family Medical History: Cancer Additional Family Medical History / Comment(s): Father at age 80 of prostrate cancer. Brother(s) Family Medical History: Cancer Additional Family Medical History / Comment(s): Patient has a total of 6 brothers. One brother with history of atrial fibrillation and kidney cancer, second brother with valvular heart disease, third brother with Parkinson's. Daughter(s) Additional Family Medical History / Comment(s): . <Immanuel Camejo - Last Filed: 11/07/23 06:11> General Exam Limitations: no limitations General appearance: alert, in no apparent distress Head exam: Present: atraumatic, normocephalic Eye exam: Present: normal appearance. Absent: scleral icterus, conjunctival injection Neck exam: Present: normal inspection Respiratory exam: Present: normal lung sounds bilaterally. Absent: respiratory distress, wheezes, rales, rhonchi, stridor Cardiovascular Exam: Present: regular rate, normal rhythm, normal heart sounds. Absent: systolic murmur, diastolic murmur, rubs, gallop GI/Abdominal exam: Present: soft. Absent: distended, tenderness, guarding, neela ound, rigid, mass Extremities exam: Present: normal inspection, normal capillary refill. Absent: pedal edema, calf tenderness Back exam: Present: normal inspection. Absent: CVA tenderness (R), CVA tenderness (L), muscle spasm, vertebral tenderness Neurological exam: Present: alert, reflexes normal. Absent: motor sensory deficit Skin exam: Present: warm, dry, intact, normal color. Absent: rash <Immanuel Camejo - Last Filed: 11/07/23 06:11> Course Vital Signs 11/07/23 11/07/23 04:57 06:27 Temperature 98.5 F Pulse Rate 112 H 91 Respiratory 20 16 Rate Blood Pressure 106/73 110/81 O2 Sat by Pulse 97 98 Oximetry Medical Decision Making - Lab Data Result diagrams: 11/07/23 05:45 11/07/23 05:45 <Juanito Brewer - Last Filed: 11/07/23 08:38> - Medical Decision Making Was patient admitted / discharged? Hospital course, mention meds given and route, prescriptions, significant lab abnormalities, going to OR and other pertinent info. @ -Patient was signed out to me by Dr. Mendoza at 7 AM. Patient was given fentanyl initially I gave the patient Toradol and Norflex IV. Patient was feeling better. Patient will be discharged home on Motrin and told to continue the Flexeril and lidocaine patch as well as Tylenol as needed. Patient states it only is causing him pain when he is moving or stretching. CT scan showed no acute abnormality Undiagnosed new problem with uncertain prognosis? @ -No Drug Therapy requiring intensive monitoring for toxicity (Heparin, Nitro, Insulin, Cardizem)? @ -No Were any procedures done? @ -No Diagnosis/symptom? @ -Back strain Acute, or Chronic, or Acute on Chronic? @ -Acute Uncomplicated (without systemic symptoms) or Complicated (systemic symptoms)? @ -Complicated Side effects of treatment? @ -No Exacerbation, Progression, or Severe Exacerbation? @ -No Poses a threat to life or bodily function? How? (Chest pain, [place], [place], pneumonia, PE, COPD, DKA, ARF, appy, cholecystitis, CVA, Diverticulitis, Homicidal, Suicidal, threat to staff... and all critical care pts) @ -No (Juanito Brewer) - Lab Data Lab Results 11/07/23 11/07/23 11/07/23 Range/Units 05:45 05:45 06:39 WBC 5.3 (3.8-10.6) k/uL RBC 4.54 (4.30-5.90) m/uL Hgb 14.4 (13.0-17.5) gm/dL Hct 45.8 (39.0-53.0) % MCV 100.8 H (80.0-100.0) fL MCH 31.7 (25.0-35.0) pg MCHC 31.5 (31.0-37.0) g/dL RDW 13.0 (11.5-15.5) % Plt Count 133 L (150-450) k/uL MPV 8.8 Neutrophils % 62 % Lymphocytes % 25 % Monocytes % 7 % Eosinophils % 4 % Basophils % 1 % Neutrophils # 3.3 (1.3-7.7) k/uL Lymphocytes # 1.3 (1.0-4.8) k/uL Monocytes # 0.4 (0-1.0) k/uL Eosinophils # 0.2 (0-0.7) k/uL Basophils # 0.0 (0-0.2) k/uL Sodium 139 (137-145) mmol/L Potassium 4.1 (3.5-5.1) mmol/L Chloride 102 (98-107) mmol/L Carbon Dioxide 29 (22-30) mmol/L Anion Gap 8 mmol/L BUN 60 H (9-20) mg/dL Creatinine 1.77 H (0.66-1.25) mg/dL Est GFR (CKD-EPI)AfAm 39 (>60 ml/min/1.73 sqM) Est GFR (CKD-EPI)NonAf 34 (>60 ml/min/1.73 sqM) Glucose 89 (74-99) mg/dL Calcium 9.3 (8.4-10.2) mg/dL Total Bilirubin 0.7 (0.2-1.3) mg/dL AST 35 (17-59) U/L ALT 29 (4-49) U/L Alkaline Phosphatase 64 (38-126) U/L C-Reactive Protein 0.5 (<1.0) mg/dL Total Protein 6.9 (6.3-8.2) g/dL Albumin 4.1 (3.5-5.0) g/dL Urine Color Colorless Urine Appearance Clear (Clear) Urine pH 5.5 (5.0-8.0) Ur Specific Declo 1.007 (1.001-1.035) Urine Protein Negative (Negative) Urine Glucose (UA) Negative (Negative) Urine Ketones Negative (Negative) Urine Blood Negative (Negative) Urine Nitrite Negative (Negative) Urine Bilirubin Negative (Negative) Urine Urobilinogen <2.0 (<2.0) mg/dL Ur Leukocyte Esterase Negative (Negative) Disposition <Immanuel Camejo - Last Filed: 11/07/23 06:11> Is patient prescribed a controlled substance at d/c from ED?: No Time of Disposition: 08:27 <Juanito Brewer - Last Filed: 11/07/23 08:38> Clinical Impression: Strain of lumbar region Disposition: HOME SELF-CARE Instructions (If sedation given, give patient instructions): Low Back Strain (ED) Additional Instructions: Patient is to continue the lidocaine patches as well as Flexeril. Patient should now start taking the Motrin as prescribed. Patient should take Tylenol as needed for additional pain relief Prescriptions: Cyclobenzaprine [Flexeril] 5 mg PO TID #15 tablet Ibuprofen [Motrin] 600 mg PO Q6HR PRN #20 tab PRN Reason: For pain Referrals: Nehemiah Mosqueda DO [Primary Care Provider] - 1-2 days
[2023-11-07 06:31] LABS: ALT 29 U/L (4-49); AST 35 U/L (17-59); African American GFR (CKD) 39 (>60 ml/min/1.73 sqM); Albumin 4.1 g/dL (3.5-5.0); Alkaline Phosphatase 64 U/L (38-126); Anion Gap 8 mmol/L; Blood Urea Nitrogen 60 mg/dL (9-20); C Reactive Protein 0.5 mg/dL (<1.0); Calcium 9.3 mg/dL (8.4-10.2); Carbon Dioxide 29 mmol/L (22-30); Chloride 102 mmol/L (98-107); Glucose 89 mg/dL (74-99); Non-African American GFR(CKD) 34 (>60 ml/min/1.73 sqM); Potassium 4.1 mmol/L (3.5-5.1); Sodium 139 mmol/L (137-145); Total Bilirubin 0.7 mg/dL (0.2-1.3); Total Protein 6.9 g/dL (6.3-8.2)
[2023-11-07 06:49] LABS: Appearance,Urine Clear (Clear); Bilirubin,Urine Negative (Negative); Color,Urine Colorless; Glucose,Urine (UA) Negative (Negative); Ketones,Urine Negative (Negative); PH, Urine 5.5 (5.0-8.0); Protein,Urine Negative (Negative); Specific Gravity,Urine 1.007 (1.001-1.035)
[2023-11-07 06:50] LABS: Blood,Urine Negative (Negative); Leukocyte Esterase,Urine Negative (Negative); Nitrite,Urine Negative (Negative); Urobilinogen,Urine <2.0 mg/dL (<2.0)
--- NOTE | 2023-11-07 08:00 | CT ---
EXAMINATION TYPE: CT abdomen pelvis wo con DATE OF EXAM: 11/07/2023 COMPARISON: 09/21/2021 INDICATION: Left side back pain DLP: 1415.7 mGycm, Automated exposure control for dose reduction was used. CONTRAST: 0 mL of Isovue 300. Study performed without Oral Contrast TECHNIQUE: Axial images were obtained from above the diaphragm to the pubic rami in the axial plane a t 5 mm thick sections. Reconstructed images are reviewed on the computer in the coronal plane. FINDINGS: Limited CT sections are obtained the lung bases. There is a 0.5 cm calcification mid right lower patrick g field. Pleural-based nodule measuring 0.3 cm periphery right lung, series 201 image 3. Coronary ar derik calcifications present. Heart size is prominent. CT ABDOMEN: Liver: Normal Spleen: Normal Pancreas: Normal Adrenal glands: The adrenal glands are normal. Gallbladder: Cholelithiasis present. Kidneys: No masses are evident. No hydronephrosis is present. Bilateral renal cysts are present. N o renal stones are identified Aorta: Vascular calcification is within the aorta. There is some mild fusiform prominence of the mid abdominal aorta with an AP diameter of 3.1 cm Inferior vena cava: Normal. CT PELVIS: Bilateral hip prostheses are present limiting the lower pelvic evaluation. Loops of bowel within the abdomen and pelvis are normal. This study is without oral contrast limi ting pathology evaluation. Appendix: Normal as visualized. Urinary bladder: Poorly visualized. Genitourinary structures: Prostate cannot be evaluated due to beam hardening artifact. Osseous structures: No suspicious lytic or sclerotic lesions. IMPRESSION: 1. Cholelithiasis. 2. Couple of right lower lobe lung nodules. Follow-up CT chest in 6 months is recommended. 3. Mild fusiform prominence mid abdominal aorta 0.1 cm.
[2023-11-07 08:39] VITALS: BP 100/64; PULSE 104; RESP 19
[2023-11-07] MEDS: ORPHENADRINE 30 MG/ML 2 ML VIAL IVP STA (08:40)
[2023-11-07] MEDS: KETOROLAC 15 MG/ML 1 ML VIAL IVP STA (08:40)
[2023-11-07] MEDS: ACET/COD 300 MG/30 MG STARTER PACK 6 TAB BTL PO STA (08:46)
== END 2023-11-07 08:55 | disposition home or self-care (01) ==
LOC: EC 04:53
DX: S39.012A Strain of muscle, fascia and tendon of lower back, initial encounter (principal); K80.20 Calculus of gallbladder without cholecystitis without obstruction; Z87.891 Personal history of nicotine dependence; Z88.7 Allergy status to serum and vaccine; Z88.5 Allergy status to narcotic agent; Z88.8 Allergy status to other drugs, medicaments and biological substances; X58.XXXA Exposure to other specified factors, initial encounter
CPT/HCPCS: 36415; 80053; 85025; 86140; 81003; 74176; 99284; 96374; 96375 ×2; J2360; J3010; J1885

== ENCOUNTER 2023-12-19 06:48 | Inpatient (IN) | payer MEDICARE ==
[2023-12-19 07:18] LABS: Basophils # (A) 0.1 k/uL (0-0.2); Basophils % (A) 1 %; Eosinophils # (A) 0.2 k/uL (0-0.7); Eosinophils % (A) 3 %; HCT 40.3 % (39.0-53.0); HGB 13.2 gm/dL (13.0-17.5); Lymphocytes # (A) 0.9 k/uL (1.0-4.8); Lymphocytes % (A) 16 %; MCH 32.2 pg (25.0-35.0); MCHC 32.8 g/dL (31.0-37.0); MCV 98.3 fL (80.0-100.0); Monocytes # (A) 0.4 k/uL (0-1.0); Monocytes % (A) 8 %; Neutrophils # (A) 3.8 k/uL (1.3-7.7); Neutrophils % (A) 70 %; Platelet Count 126 k/uL (150-450); RDW 13.4 % (11.5-15.5); WBC 5.5 k/uL (3.8-10.6)
[2023-12-19 07:28] LABS: INR 1.2 (<1.2); Partial Thromboplastin Time 32.4 sec (22.0-30.0); Prothrombin Time 12.6 sec (10.0-12.5)
[2023-12-19 07:55] LABS: ALT 27 U/L (4-49); AST 45 U/L (17-59); African American GFR (CKD) 44 (>60 ml/min/1.73 sqM); Albumin 3.4 g/dL (3.5-5.0); Alkaline Phosphatase 76 U/L (38-126); Anion Gap 6 mmol/L; Blood Urea Nitrogen 61 mg/dL (9-20); Calcium 8.5 mg/dL (8.4-10.2); Carbon Dioxide 23 mmol/L (22-30); Chloride 96 mmol/L (98-107); Glucose 96 mg/dL (74-99); Magnesium 2.4 mg/dL (1.6-2.3); Non-African American GFR(CKD) 38 (>60 ml/min/1.73 sqM); Sodium 125 mmol/L (137-145)
--- NOTE | 2023-12-19 08:01 | XR ---
EXAMINATION TYPE: XR tibia fibula LT DATE OF EXAM: 12/19/2023 CLINICAL HISTORY: pain TECHNIQUE: AP and lateral images of the left tibia and fibula are obtained. COMPARISON: None. FINDINGS: There is no acute fracture/dislocation evident. The joint spaces appear within normal montemayor its. The overlying soft tissue appears unremarkable. Postoperative screw fixation at the distal tibi otalar region. Total knee arthroplasty. No radiographic evidence to suggest osteomyelitis at this tessy e. IMPRESSION: There is no acute fracture or dislocation seen. ICD 10 NO FRACTURE, INITIAL EVALUATION
--- NOTE | 2023-12-19 08:02 | XR ---
EXAMINATION TYPE: XR chest 2V DATE OF EXAM: 12/19/2023 COMPARISON: 11/02/2023 HISTORY: Shortness of breath TECHNIQUE: Frontal and lateral views of the chest are obtained. FINDINGS: Scattered senescent parenchymal changes noted. Hyperinflation compatible with COPD. No evidence for infiltrate. No evidence for atelectasis. Heart size is stable. Mediastinal structures are stable and grossly unremarkable. No evidence for hilar prominence. Degenerative changes dorsal spine. IMPRESSION: 1. No evidence for acute pulmonary disease.
[2023-12-19] MEDS ORDERED: NALOXONE 0.4 MG/ML 1 ML VIAL IV PRN (08:43)
--- NOTE | 2023-12-19 08:45 | ED ---
General Adult HPI - General Chief complaint: Chest Pain Stated complaint: NILSON chest pain Time Seen by Provider: 12/19/23 08:00 Source: patient, family, RN notes reviewed, old records reviewed Mode of arrival: wheelchair Limitations: no limitations - History of Present Illness Initial comments: Patient is an 88-year-old male who presents emergency department complaining of chest pain, dyspnea. This has been ongoing for worse for the last few days but noticed some weight gain over the last week. Has a history of CHF, atrial fibrillation, heart failure, hypertension. Denies productive cough. Endorses exertional dyspnea. Describes chest tightness with laying down flat, exertion which is atypical. Also has noticed some worsening lower extremity edema. Recently had a venous stasis blister debrided by Dr. Hadley in the outpatient setting. No fevers or chills. Was not placed on antibiotics. Presents for further evaluation at this time. Denies PND. - Related Data Home Medications Medication Instructions Recorded Confirmed Tamsulosin HCl [Flomax] 0.4 mg PO BID@0700,1800 07/12/14 11/02/23 Multivit-Min/FA/Lycopen/Lutein 1 tab PO DAILY 04/27/21 11/02/23 [Centrum Silver Tablet] Cholecalciferol (Vitamin D3) 125 mcg PO DAILY 08/13/22 11/02/23 [Vitamin D3 (125 MCG = 5,000 IU)] Metoprolol Tartrate [Lopressor] 50 mg PO TID@0700,1300,1800 08/13/22 11/02/23 Midodrine [ProAmatine] 5 mg PO TID@0700,1300,1800 08/13/22 11/02/23 Apixaban [Eliquis] 2.5 mg PO BID 11/02/23 11/02/23 Empagliflozin [Jardiance] 10 mg PO DAILY 11/02/23 11/02/23 Furosemide [Lasix] 40 mg PO BID@0800,1400 11/02/23 11/02/23 Isosorbide Mononitrate ER [Imdur] 15 mg PO DAILY 11/02/23 11/02/23 Levothyroxine Sodium [Synthroid] 88 mcg PO DAILY@0500 11/02/23 11/02/23 Melatonin 6 mg PO HS 11/02/23 11/02/23 Nitroglycerin Sl Tabs [Nitrostat] 0.4 mg SUBLINGUAL Q5M PRN 11/02/23 11/02/23 Previous Rx's Medication Instructions Recorded Lidocaine 5% Patch [Lidoderm] 1 patch TOPICAL DAILY #25 patch 11/02/23 Cyclobenzaprine [Flexeril] 5 mg PO TID #15 tablet 11/07/23 Ibuprofen [Motrin] 600 mg PO Q6HR PRN #20 tab 11/07/23 Allergies Allergy/AdvReac Type Severity Reaction Status Date / Time isosorbide mononitrate Allergy Unknown Verified 12/19/23 07:00 [From Imdur] Penicillins Allergy Rash/Hives Verified 12/19/23 07:00 albuterol [From Ventolin HFA] AdvReac Rapid Verified 12/19/23 07:00 Heart Rate amiodarone HCl AdvReac LUNGS/EYE Verified 12/19/23 07:00 [From Cordarone] PROBLEMS codeine AdvReac Nausea & Verified 12/19/23 07:00 Vomiting enalapril maleate AdvReac Cough Verified 12/19/23 07:00 [From Vasotec] enalaprilat dihydrate AdvReac Cough Verified 12/19/23 07:00 [From Vasotec] hydromorphone HCl AdvReac Nausea & Verified 12/19/23 07:00 [From Dilaudid] Vomiting loratadine [From Claritin] AdvReac Rapid Verified 12/19/23 07:00 Heart Rate morphine AdvReac Nausea & Verified 12/19/23 07:00 Vomiting procainamide HCl AdvReac "FLUID ON Verified 12/19/23 07:00 [From Pronestyl] HEART" tetanus toxoid, adsorbed AdvReac "JOINT Verified 12/19/23 07:00 STIFFNESS" Review of Systems ROS Statement: Those systems with pertinent positive or pertinent negative responses have been documented in the HPI. Review of Systems: CONST: Denies fever EYES: Denies blurry vision ENT: Denies nasal congestion C/V: Endorses intermittent chest pain RESP: Endorses dyspnea GI: Denies abdominal pain : Denies dysuria SKIN: Endorses recently debrided left martinez blister MSK: Denies joint pain. NEURO: Denies headache ROS Other: All systems not noted in ROS Statement are negative. Past Medical History Past Medical History: Atrial Fibrillation, Atrial Flutter, Asthma, Heart Failure, GERD/Reflux, Hypertension, Osteoarthritis (OA), Pneumonia, Prostate Disorder, Skin Disorder, Sleep Apnea/CPAP/BIPAP Additional Past Medical History / Comment(s): SEE HISTORY DONE BY DR. PACHECO." "spot" on R lung/stable. KATHLEEN/no longer needs to use device. 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 Past Anesthesia/Blood Transfusion Reactions: No Reported Reaction Past Psychological History: No Psychological Hx Reported Smoking Status: Former smoker Past Alcohol Use History: None Reported Past Drug Use History: None Reported - Past Family History Mother Family Medical History: Cancer Additional Family Medical History / Comment(s): Mother at age 82 of lung cancer. Father Family Medical History: Cancer Additional Family Medical History / Comment(s): Father at age 80 of prostrate cancer. Brother(s) Family Medical History: Cancer Additional Family Medical History / Comment(s): Patient has a total of 6 brothers. One brother with history of atrial fibrillation and kidney cancer, second brother with valvular heart disease, third brother with Parkinson's. Daughter(s) Additional Family Medical History / Comment(s): . General Exam - General Exam Comments Initial Comments: General: Appears in no acute distress. HEAD: Normal with no signs of head trauma. EYES: PERRLA, EOMI, conjunctiva normal, no discharge. ENT: Hearing grossly intact, normal oropharynx. RESPIRATORY: Clear breath sounds bilaterally. No wheezes, rales, or rhonchi. No hypoxia. No increased work of breathing. C/V: Regular rate and rhythm. S1 and S2 auscultated, bilateral lower extremity pitting edema that is symmetrical, peripheral pulses 2+ and intact throughout ABD: Abd is soft, nontender, nondistended EXT: Normal range of motion, no obvious deformity SKIN: Left skin blister debridement does not appear acutely infected at this time. Minimal erythema around the site which is likely secondary to recent debridementRecently had wound dressed by . NEURO: Alert and oriented x 4. Limitations: no limitations Course Vital Signs 12/19/23 12/19/23 06:56 08:50 Temperature 98.0 F Pulse Rate 103 H 95 Respiratory 16 20 Rate Blood Pressure 92/60 96/56 O2 Sat by Pulse 97 97 Oximetry Medical Decision Making - Medical Decision Making Was pt. sent in by a medical professional or institution (, PA, NURSE CASE MANAGEMENT, urgent c are, hospital, or long term...) When possible be specific @ -No Did you speak to anyone other than the patient for history (EMS, parent, family, police, friend...)? What history was obtained from this source @ -No Did you review nursing and triage notes (agree or disagree)? Why? @ -I reviewed and agree with nursing and triage notes Were old charts reviewed (outside hosp., previous admission, EMS record, old EKG, old radiological studies, urgent care reports/EKG's, long term records)? Report findings @ -Reviewed medication list which was with the patient as well as compared most recent BNP level from October of this year, and today it is more elevated. Differential Diagnosis (chest pain, altered mental status, abdominal pain women, abdominal pain men, vaginal bleeding, weakness, fever, dyspnea, syncope, headache, dizziness, GI bleed, back pain, seizure, CVA, palpatations, mental health, musculoskeletal)? @ -Differential Chest Pain: Stable Angina, Unstable Angina, STEMI, NSTEMI Aortic Dissection, Pneumothorax, Musculoskeletal, Esophageal Spasm GERD, Cholecystitis, Pancreatitis, Zoster, this is not meant to be an all-inclusive list. Differential Dyspnea: Coronary syndrome, arrhythmia, tamponade, asthma, COPD, pulmonary embolism, pneumonia, pneumothorax, pulmonary effusion, anaphylaxis, diabetic ketoacidosis, flailed chest, pulmonary contusion, diaphragmatic rupture, anemia, neuromuscular, this is not meant to be an all-inclusive list. EKG interpreted by me (3pts min.). @ -As above X-rays interpreted by me (1pt min.). @ -Chest x-ray reveals no obvious acute cardiopulmonary process. CT interpreted by me (1pt min.). @ -None done U/S interpreted by me (1pt. min.). @ -None done What testing was considered but not performed or refused? (CT, X-rays, U/S, labs )? Why? @ -None What meds were considered but not given or refused? Why? @ -None Did you discuss the management of the patient with other professionals (professionals i.e. DrJuancarlos, PA, NURSE CASE MANAGEMENT, lab, RT, psych nurse, social services designee, data security coordinator, teacher, armed custom protection officer, case advocate)? Give summary @ -Discussed with Dr. Jose of [facility] who accepted the admission. Was smoking cessation discussed for >3mins.? @ -No Was critical care preformed (if so, how long)? @ -No Were there social determinants of health that impacted care today? How? (Homelessness, low income, unemployed, alcoholism, drug addiction, trans portation, low edu. Level, literacy, decrease access to med. care, halfway, rehab)? @ -No Was there de-escalation of care discussed even if they declined (Discuss DNR or withdrawal of care, Hospice)? DNR status @ -No What co-morbidities impacted this encounter? (DM, HTN, Smoking, COPD, CAD, Cancer, CVA, ARF, Chemo, Hep., AIDS, mental health diagnosis, sleep apnea, morbid obesity)? @ -History of CHF, A-fib on blood thinners Was patient admitted / discharged? Hospital course, mention meds given and route, prescriptions, significant lab abnormalities, going to OR and other pertinent info. @ -Patient presents emergency department complaining of multiple days of chest pain, shortness of breath. Has many clinical symptoms of worsening shortness of breath with exertional dyspnea, worsening lower extremity edema, worsening orthopnea. Chest pain is only present when the shortness of breath is present. Currently is resting comfortably at this time. Workup started in triage. I evaluated the patient when he was placed in room. We will obtain cardiopulmonary workup. Patient's left lower extremity debridement appears well and not acutely infected. He was not placed on antibiotics. I explained he would likely be admitted and we will have the physician who debrided it, Dr. Hadley evaluate the patient. Patient was in agreement this plan. Vital signs within acceptable limits. Currently asymptomatic at this time. He will be given 324 mg of aspirin. EKG shows no signs of acute ischemia. Laboratory studies remarkable for mild hyponatremia of 125, CKD, as well as elevated BNP of 14,000 which is atypical for the patient. I discussed with the patient I would like to admit him to the hospital for CHF exacerbation and his hyponatremia. We will initiate IV Lasix and trend the t roponin. Had a recent echo and therefore I will defer to cardiology if they would like a new one. Dr. Hadley will be consulted for evaluation of the patient's left lower extremity. I spoke with the admitting team, Dr. Jose who who accepted the admission. Cardiology consulted. Undiagnosed new problem with uncertain prognosis? @ -No Drug Therapy requiring intensive monitoring for toxicity (Heparin, Nitro, Insulin, Cardizem)? @ -No Were any procedures done? @ -No Diagnosis/symptom? @ -Hyponatremia, CHF exacerbation, chest pain Acute, or Chronic, or Acute on Chronic? @ -Acute Uncomplicated (without systemic symptoms) or Complicated (systemic symptoms)? @ -Complicated Side effects of treatment? @ -No Exacerbation, Progression, or Severe Exacerbation? @ -No Poses a threat to life or bodily function? How? (Chest pain, USA, PA, pneumonia, PE, COPD, DKA, ARF, appy, cholecystitis, CVA, Diverticulitis, Homicidal, Suicidal, threat to staff... and all critical care pts) @ -Yes - Lab Data Result diagrams: 12/19/23 07:13 12/19/23 07:04 Lab Results 12/19/23 12/19/23 12/19/23 Range/Units 07:04 07:04 07:04 WBC (3.8-10.6) k/uL RBC (4.30-5.90) m/uL Hgb (13.0-17.5) gm/dL Hct (39.0-53.0) % MCV (80.0-100.0) fL MCH (25.0-35.0) pg MCHC (31.0-37.0) g/dL RDW (11.5-15.5) % Plt Count (150-450) k/uL MPV Neutrophils % % Lymphocytes % % Monocytes % % Eosinophils % % Basophils % % Neutrophils # (1.3-7.7) k/uL Lymphocytes # (1.0-4.8) k/uL Monocytes # (0-1.0) k/uL Eosinophils # (0-0.7) k/uL Basophils # (0-0.2) k/uL PT 12.6 H (10.0-12.5) sec INR 1.2 H (<1.2) APTT 32.4 H (22.0-30.0) sec Sodium 125 L (137-145) mmol/L Potassium 4.0 (3.5-5.1) mmol/L Chloride 96 L (98-107) mmol/L Carbon Dioxide 23 (22-30) mmol/L Anion Gap 6 mmol/L BUN 61 H (9-20) mg/dL Creatinine 1.61 H (0.66-1.25) mg/dL Est GFR (CKD-EPI)AfAm 44 (>60 ml/min/1.73 sqM) Est GFR (CKD-EPI)NonAf 38 (>60 ml/min/1.73 sqM) Glucose 96 (74-99) mg/dL Calcium 8.5 (8.4-10.2) mg/dL Magnesium 2.4 H (1.6-2.3) mg/dL Total Bilirubin 1.0 (0.2-1.3) mg/dL AST 45 (17-59) U/L ALT 27 (4-49) U/L Alkaline Phosphatase 76 (38-126) U/L Troponin I <0.012 (0.000-0.034) ng/mL NT-Pro-B Natriuret Pep pg/mL Total Protein 6.0 L (6.3-8.2) g/dL Albumin 3.4 L (3.5-5.0) g/dL Influenza Type A (PCR) (Not Detectd) Influenza Type B (PCR) (Not Detectd) RSV (PCR) (Not Detectd) SARS-CoV-2 (PCR) (Not Detectd) 12/19/23 12/19/23 12/19/23 Range/Units 07:04 07:13 08:01 WBC 5.5 (3.8-10.6) k/uL RBC 4.10 L (4.30-5.90) m/uL Hgb 13.2 (13.0-17.5) gm/dL Hct 40.3 (39.0-53.0) % MCV 98.3 (80.0-100.0) fL MCH 32.2 (25.0-35.0) pg MCHC 32.8 (31.0-37.0) g/dL RDW 13.4 (11.5-15.5) % Plt Count 126 L (150-450) k/uL MPV 9.0 Neutrophils % 70 % Lymphocytes % 16 % Monocytes % 8 % Eosinophils % 3 % Basophils % 1 % Neutrophils # 3.8 (1.3-7.7) k/uL Lymphocytes # 0.9 L (1.0-4.8) k/uL Monocytes # 0.4 (0-1.0) k/uL Eosinophils # 0.2 (0-0.7) k/uL Basophils # 0.1 (0-0.2) k/uL PT (10.0-12.5) sec INR (<1.2) APTT (22.0-30.0) sec Sodium (137-145) mmol/L Potassium (3.5-5.1) mmol/L Chloride (98-107) mmol/L Carbon Dioxide (22-30) mmol/L Anion Gap mmol/L BUN (9-20) mg/dL Creatinine (0.66-1.25) mg/dL Est GFR (CKD-EPI)AfAm (>60 ml/min/1.73 sqM) Est GFR (CKD-EPI)NonAf (>60 ml/min/1.73 sqM) Glucose (74-99) mg/dL Calcium (8.4-10.2) mg/dL Magnesium (1.6-2.3) mg/dL Total Bilirubin (0.2-1.3) mg/dL AST (17-59) U/L ALT (4-49) U/L Alkaline Phosphatase (38-126) U/L Troponin I (0.000-0.034) ng/mL NT-Pro-B Natriuret Pep 45242 pg/mL Total Protein (6.3-8.2) g/dL Albumin (3.5-5.0) g/dL Influenza Type A (PCR) Not Detected (Not Detectd) Influenza Type B (PCR) Not Detected (Not Detectd) RSV (PCR) Not Detected (Not Detectd) SARS-CoV-2 (PCR) Not Detected (Not Detectd) - EKG Data -: EKG Interpreted by Me EKG Comments: 12-lead Electrocardiogram Interpretation Note EKG was reviewed and interpreted by myself. 12-lead ECG performed at 0704 is interpreted by me as revealing atrial fibrillation at a rate of 97 beats per minute. Left axis deviation. QRS duration is 176 ms, QTc is 492 ms. PVCs present.. There were no ST or T wave abnormalities to suggest myocardial ischemia or injury. R wave progression across the precordium was delayed. By my interpretation this EKG is non-diagnostic for acute ischemia. Disposition Clinical Impression: Chest pain, CHF exacerbation, Hyponatremia Disposition: ADMITTED IP TO THIS HOSP Condition: Stable Time of Disposition: 08:42
[2023-12-19] MEDS: FUROSEMIDE 10 MG/ML 4 ML VIAL IV STA (08:47)
[2023-12-19] MEDS: ASPIRIN 81 MG PO STA (08:48)
[2023-12-19] MEDS: MIDODRINE 5 MG TAB PO SCH (12:06)
--- NOTE | 2023-12-19 17:02 | P.GSCN ---
History of Present Illness History of present illness: 88-year-old gentleman known to me from the wound clinic patient came with history of chest pains and shortness of breath and dyspnea has been admitted medical service patient also has history of atrial fibrillation, patient's heart failure hypertension patient has superficial wound post blister left lower extremity we have been treating with local wound care in the wound center. On examination patient was seen in his room lying comfortably in bed Chest few crackles the lung bases. Second sound present Abdomen soft nontender Femorals are 1+ bilateral patient has a left lower extremity anterior aspect of the left lower leg superficial wound will be treating local wound care change dressing with extra silver patient has no fever or chill change the dressing on Saturday 1 pillow elevation follow with you Past Medical History Past Medical History: Atrial Fibrillation, Atrial Flutter, Asthma, Heart Failure, GERD/Reflux, Hypertension, Osteoarthritis (OA), Pneumonia, Prostate Disorder, Skin Disorder, Sleep Apnea/CPAP/BIPAP Additional Past Medical History / Comment(s): SEE HISTORY DONE BY DR. PACHECO." "spot" on R lung/stable. KATHLEEN/no longer needs to use device. 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 Past Anesthesia/Blood Transfusion Reactions: No Reported Reaction Past Psychological History: No Psychological Hx Reported Smoking Status: Former smoker Past Alcohol Use History: None Reported Past Drug Use History: None Reported - Past Family History Mother Family Medical History: Cancer Additional Family Medical History / Comment(s): Mother at age 82 of lung cancer. Father Family Medical History: Cancer Additional Family Medical History / Comment(s): Father at age 80 of prostrate cancer. Brother(s) Family Medical History: Cancer Additional Family Medical History / Comment(s): Patient has a total of 6 brothers. One brother with history of atrial fibrillation and kidney cancer, second brother with valvular heart disease, third brother with Parkinson's. Daughter(s) Additional Family Medical History / Comment(s): . Medications and Allergies Home Medications Medication Instructions Recorded Confirmed Type Tamsulosin HCl [Flomax] 0.4 mg PO BID@0700,1800 07/12/14 12/19/23 History Multivit-Min/FA/Lycopen/Lutein 1 tab PO DAILY 04/27/21 12/19/23 History [Centrum Silver Tablet] Cholecalciferol (Vitamin D3) 125 mcg PO DAILY 08/13/22 12/19/23 History [Vitamin D3 (125 MCG = 5,000 IU)] Metoprolol Tartrate [Lopressor] 50 mg PO TID@0700,1300,1800 08/13/22 12/19/23 History Midodrine [ProAmatine] 5 mg PO TID@0700,1300,1800 08/13/22 12/19/23 History Apixaban [Eliquis] 2.5 mg PO BID@0700,1800 11/02/23 12/19/23 History Empagliflozin [Jardiance] 10 mg PO DAILY@0700 11/02/23 12/19/23 History Furosemide [Lasix] 40 mg PO BID@0800,1400 11/02/23 12/19/23 History Isosorbide Mononitrate ER [Imdur] 15 mg PO DAILY@0700 11/02/23 12/19/23 History Levothyroxine Sodium [Synthroid] 88 mcg PO DAILY@0500 11/02/23 12/19/23 History Melatonin 6 mg PO HS 11/02/23 12/19/23 History Nitroglycerin Sl Tabs [Nitrostat] 0.4 mg SUBLINGUAL Q5M PRN 11/02/23 12/19/23 History Allergies Allergy/AdvReac Type Severity Reaction Status Date / Time isosorbide mononitrate Allergy Unknown Verified 12/19/23 09:07 [From Imdur] Penicillins Allergy Rash/Hives Verified 12/19/23 09:07 albuterol [From Ventolin HFA] AdvReac Rapid Verified 12/19/23 09:07 Heart Rate amiodarone HCl AdvReac LUNGS/EYE Verified 12/19/23 09:07 [From Cordarone] PROBLEMS codeine AdvReac Nausea & Verified 12/19/23 09:07 Vomiting enalapril maleate AdvReac Cough Verified 12/19/23 09:07 [From Vasotec] enalaprilat dihydrate AdvReac Cough Verified 12/19/23 09:07 [From Vasotec] hydromorphone HCl AdvReac Nausea & Verified 12/19/23 09:07 [From Dilaudid] Vomiting loratadine [From Claritin] AdvReac Rapid Verified 12/19/23 09:07 Heart Rate morphine AdvReac Nausea & Verified 12/19/23 09:07 Vomiting procainamide HCl AdvReac "FLUID ON Verified 12/19/23 09:07 [From Pronestyl] HEART" tetanus toxoid, adsorbed AdvReac "JOINT Verified 12/19/23 09:07 STIFFNESS" Surgical - Exam Vital Signs Temp Pulse Resp BP Pulse Ox 98.0 F 103 H 16 92/60 97 12/19/23 06:56 12/19/23 06:56 12/19/23 06:56 12/19/23 06:56 12/19/23 06:56 Results - Labs 12/19/23 07:13 12/19/23 07:04 Abnormal Lab Results - Last 24 Hours (Table) 12/19/23 12/19/23 12/19/23 Range/Units 07:04 07:04 07:13 RBC 4.10 L (4.30-5.90) m/uL Plt Count 126 L (150-450) k/uL Lymphocytes # 0.9 L (1.0-4.8) k/uL PT 12.6 H (10.0-12.5) sec INR 1.2 H (<1.2) APTT 32.4 H (22.0-30.0) sec Sodium 125 L (137-145) mmol/L Chloride 96 L (98-107) mmol/L BUN 61 H (9-20) mg/dL Creatinine 1.61 H (0.66-1.25) mg/dL Magnesium 2.4 H (1.6-2.3) mg/dL Total Protein 6.0 L (6.3-8.2) g/dL Albumin 3.4 L (3.5-5.0) g/dL Diabetes panel 12/19/23 Range/Units 07:04 Sodium 125 L (137-145) mmol/L Potassium 4.0 (3.5-5.1) mmol/L Chloride 96 L (98-107) mmol/L Carbon Dioxide 23 (22-30) mmol/L BUN 61 H (9-20) mg/dL Creatinine 1.61 H (0.66-1.25) mg/dL Glucose 96 (74-99) mg/dL Calcium 8.5 (8.4-10.2) mg/dL AST 45 (17-59) U/L ALT 27 (4-49) U/L Alkaline Phosphatase 76 (38-126) U/L Total Protein 6.0 L (6.3-8.2) g/dL Albumin 3.4 L (3.5-5.0) g/dL Calcium panel 12/19/23 Range/Units 07:04 Calcium 8.5 (8.4-10.2) mg/dL Albumin 3.4 L (3.5-5.0) g/dL Pituitary panel 12/19/23 Range/Units 07:04 Sodium 125 L (137-145) mmol/L Potassium 4.0 (3.5-5.1) mmol/L Chloride 96 L (98-107) mmol/L Carbon Dioxide 23 (22-30) mmol/L BUN 61 H (9-20) mg/dL Creatinine 1.61 H (0.66-1.25) mg/dL Glucose 96 (74-99) mg/dL Calcium 8.5 (8.4-10.2) mg/dL Adrenal panel 12/19/23 Range/Units 07:04 Sodium 125 L (137-145) mmol/L Potassium 4.0 (3.5-5.1) mmol/L Chloride 96 L (98-107) mmol/L Carbon Dioxide 23 (22-30) mmol/L BUN 61 H (9-20) mg/dL Creatinine 1.61 H (0.66-1.25) mg/dL Glucose 96 (74-99) mg/dL Calcium 8.5 (8.4-10.2) mg/dL Total Bilirubin 1.0 (0.2-1.3) mg/dL AST 45 (17-59) U/L ALT 27 (4-49) U/L Alkaline Phosphatase 76 (38-126) U/L Total Protein 6.0 L (6.3-8.2) g/dL Albumin 3.4 L (3.5-5.0) g/dL
[2023-12-19] MEDS: APIXABAN 2.5 MG TABLET PO SCH (17:33)
[2023-12-19] MEDS: METOPROLOL TARTRATE 50 MG TAB PO SCH (17:33)
[2023-12-19] MEDS: TAMSULOSIN 0.4 MG CAP.ER.24H PO SCH (17:33)
[2023-12-19] MEDS: IBUPROFEN 600 MG TAB PO PRN (18:35)
[2023-12-19] MEDS: MELATONIN 3 MG TABLET PO SCH (21:36)
[2023-12-19] MEDS: FUROSEMIDE 10 MG/ML 4 ML VIAL IV SCH (21:37)
--- NOTE | 2023-12-19 23:38 | P.HPIM ---
History of Present Illness H&P Date: 12/19/23 Chief Complaint: Shortness of breath Patient is a 88-year-old male with a past medical history of atrial fibrillation on anticoagulation with Eliquis, chronic CHF, hypertension, osteoarthritis, obstructive sleep apnea no longer on CPAP, BPH and history of cardiac ablation/cardioversions and prior history of smoking presents to ER with complaints of chest pain and shortness of breath. Patient has been having worsening shortness of breath unable to lay flat for the past few days and also noticed weight gain and increased leg swelling. Denies any fever or chills. No cough or sputum production. Patient does have exertional dyspnea. Patient does have chronic venous stasis and leg swelling and has debridement done of the right lower extremity wound few days back. Constantin marie is currently not on any antibiotics. Chest x-ray showed no evidence for acute pulmonary disease. Tibia-fibula x-ray showed there is no fracture or dislocation. EKG showed atrial fibrillation with aberrant conduction or ventricular premature complexes. Patient is chronically hypotensive and is on midodrine at home. Laboratory data showed WBC 5.4 hemoglobin 13.1 platelets 126, INR 1.2 Sodium 125 potassium 4.0 chloride 96 bicarb is 23 BUN 61 and creatinine 1.61, liver enzymes are not elevated. Troponin x 3 negative proBNP 14,000 and albumin 3.4 Influenza, RSV and COVID-19 PCR not detected. Review of Systems Constitutional: Patient denies any fever or chills . No generalized weakness or weight loss. Abdomen: Patient denied nausea vomiting and diarrhea and abdominal pain. Cardiovascular: Patient did have chest pain at home. Shortness of breath and leg swelling. No palpitations.. Orthopnea positive Respiratory: patient denied any cough or sputum production. Positive for shortness of breath Neurologic: Patient denied any numbness or tingling. no headache. Musculoskeletal: Patient denies any complaints of joint swelling or deformity. Skin: Negative Psychiatric: Negative Endocrine: No heat or cold intolerance. No recent weight gain. Genitourinary: No dysuria or hematuria. All other 14 point ROS negative except the above Past Medical History Past Medical History: Atrial Fibrillation, Atrial Flutter, Asthma, Heart Failure, GERD/Reflux, Hypertension, Osteoarthritis (OA), Pneumonia, Prostate Disorder, Skin Disorder, Sleep Apnea/CPAP/BIPAP Additional Past Medical History / Comment(s): SEE HISTORY DONE BY DR. PACHECO." "spot" on R lung/stable. KATHLEEN/no longer needs to use device. 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 Past Anesthesia/Blood Transfusion Reactions: No Reported Reaction Past Psychological History: No Psychological Hx Reported Smoking Status: Former smoker Past Alcohol Use History: None Reported Past Drug Use History: None Reported - Past Family History Mother Family Medical History: Cancer Additional Family Medical History / Comment(s): Mother at age 82 of lung cancer. Father Family Medical History: Cancer Additional Family Medical History / Comment(s): Father at age 80 of prostrate cancer. Brother(s) Family Medical History: Cancer Additional Family Medical History / Comment(s): Patient has a total of 6 brothers. One brother with history of atrial fibrillation and kidney cancer, second brother with valvular heart disease, third brother with Parkinson's. Daughter(s) Additional Family Medical History / Comment(s): . Medications and Allergies Home Medications Medication Instructions Recorded Confirmed Type Tamsulosin HCl [Flomax] 0.4 mg PO BID@0700,1800 07/12/14 12/19/23 History Multivit-Min/FA/Lycopen/Lutein 1 tab PO DAILY 04/27/21 12/19/23 History [Centrum Silver Tablet] Cholecalciferol (Vitamin D3) 125 mcg PO DAILY 08/13/22 12/19/23 History [Vitamin D3 (125 MCG = 5,000 IU)] Metoprolol Tartrate [Lopressor] 50 mg PO TID@0700,1300,1800 08/13/22 12/19/23 History Midodrine [ProAmatine] 5 mg PO TID@0700,1300,1800 08/13/22 12/19/23 History Apixaban [Eliquis] 2.5 mg PO BID@0700,1800 11/02/23 12/19/23 History Empagliflozin [Jardiance] 10 mg PO DAILY@0700 11/02/23 12/19/23 History Furosemide [Lasix] 40 mg PO BID@0800,1400 11/02/23 12/19/23 History Isosorbide Mononitrate ER [Imdur] 15 mg PO DAILY@0700 11/02/23 12/19/23 History Levothyroxine Sodium [Synthroid] 88 mcg PO DAILY@0500 11/02/23 12/19/23 History Melatonin 6 mg PO HS 11/02/23 12/19/23 History Nitroglycerin Sl Tabs [Nitrostat] 0.4 mg SUBLINGUAL Q5M PRN 11/02/23 12/19/23 History Allergies Allergy/AdvReac Type Severity Reaction Status Date / Time isosorbide mononitrate Allergy Unknown Verified 12/19/23 09:07 [From Imdur] Penicillins Allergy Rash/Hives Verified 12/19/23 09:07 albuterol [From Ventolin HFA] AdvReac Rapid Verified 12/19/23 09:07 Heart Rate amiodarone HCl AdvReac LUNGS/EYE Verified 12/19/23 09:07 [From Cordarone] PROBLEMS codeine AdvReac Nausea & Verified 12/19/23 09:07 Vomiting enalapril maleate AdvReac Cough Verified 12/19/23 09:07 [From Vasotec] enalaprilat dihydrate AdvReac Cough Verified 12/19/23 09:07 [From Vasotec] hydromorphone HCl AdvReac Nausea & Verified 12/19/23 09:07 [From Dilaudid] Vomiting loratadine [From Claritin] AdvReac Rapid Verified 12/19/23 09:07 Heart Rate morphine AdvReac Nausea & Verified 12/19/23 09:07 Vomiting procainamide HCl AdvReac "FLUID ON Verified 12/19/23 09:07 [From Pronestyl] HEART" tetanus toxoid, adsorbed AdvReac "JOINT Verified 12/19/23 09:07 STIFFNESS" Physical Exam Vitals: Vital Signs Temp Pulse Resp BP Pulse Ox 12/19/23 10:31 86 18 88/66 97 12/19/23 08:50 95 20 96/56 97 12/19/23 06:56 98.0 F 103 H 16 92/60 97 Intake and Output 12/18/23 12/19/23 12/19/23 22:59 06:59 14:59 Other: Weight 102.965 kg PHYSICAL EXAMINATION: Patient is lying in the bed comfortably, no acute distress, awake alert and oriented.. HEENT: Normocephalic. Neck is supple. Pupils reactive. Nostrils clear. Oral cavity is moist. Neck reveals no JVD, carotid bruits, or thyromegaly. CHEST EXAMINATION: Trachea is central. Symmetrical expansion. Bibasilar diminished sounds. No wheezing or rhonchi nonlabored breathing. CARDIAC: Normal S1, S2 with no gallops. No murmurs irregular rhythm. ABDOMEN: Soft. Bowel sounds normal. No organomegaly. No abdominal bruits. Extremities: Bilateral lower extremity 2+ edema with the right lower extremity stasis ulcer is bandaged.. No clubbing or cyanosis Neurologically awake, alert, oriented x3 with well-coordinated movements. No focal deficits noted Skin: No rash or skin lesions. Psychiatric: Coperative. Nonsuicidal Musculoskeletal: No joint swelling or deformity. Normal range of motion. Results CBC & Chem 7: 12/19/23 07:13 12/19/23 07:04 Labs: Abnormal Lab Results - Last 24 Hours (Table) 12/19/23 12/19/23 12/19/23 Range/Units 07:04 07:04 07:13 RBC 4.10 L (4.30-5.90) m/uL Plt Count 126 L (150-450) k/uL Lymphocytes # 0.9 L (1.0-4.8) k/uL PT 12.6 H (10.0-12.5) sec INR 1.2 H (<1.2) APTT 32.4 H (22.0-30.0) sec Sodium 125 L (137-145) mmol/L Chloride 96 L (98-107) mmol/L BUN 61 H (9-20) mg/dL Creatinine 1.61 H (0.66-1.25) mg/dL Magnesium 2.4 H (1.6-2.3) mg/dL Total Protein 6.0 L (6.3-8.2) g/dL Albumin 3.4 L (3.5-5.0) g/dL Thrombosis Risk Factor Assmnt - DVT/VTE Prophylaxis DVT/VTE Prophylaxis: Pharmacologic Prophylaxis ordered Assessment and Plan Assessment: Acute on chronic CHF with systolic dysfunction. Ejection fraction 40 to 45% Atypical chest pain. Rule out ACS Chronic atrial fibrillation with rapid regular response. Prior history of cardioversion ablation Chronic hypotension maintained on midodrine Valvular heart disease Chronic bilateral lower extremity venous stasis with recent debridement of ulcer Hypervolemic hyponatremia CKD stage III Osteoarthritis BPH Obstructive sleep apnea not on CPAP Prior history of smoking DVT prophylaxis patient is already on Eliquis Plan: Patient will be continued on telemonitoring. Troponin x 3. Started on IV Lasix 40 mg twice daily and continue with midodrine. Continue with metoprolol for heart rate control. Continue with home medications including levothyroxine. Wound care and vascular surgery consult and cardiology consult for evaluation. Follow-up closely. Discussed with the patient and his at bedside in detail. Prognosis is guarded. Time with Patient: Greater than 30
[2023-12-20] MEDS: LEVOTHYROXINE 88 MCG TAB PO SCH (05:24)
[2023-12-20] MEDS ORDERED: ISOSORBIDE MONONITRATE ER 30 MG TAB.ER.24H PO SCH (07:00)
[2023-12-20] MEDS: CHOLECALCIFEROL 125 MCG (5000 IU) TABLET PO SCH (08:58)
--- NOTE | 2023-12-20 10:08 | P.CRDCN ---
History of Present Illness History of present illness: This is Dr. Lima dictating a consult on this patient The patient was interviewed and examined IMPRESSION / ASSESSMENT: A-fib with resting heart rates of 100 beats a minute Left bundle branch block Elevated BNP Elevated BUN/creatinine No evidence for acute myocardial infarction PLAN: 2D echo and Doppler study to assess cardiac structure and function given his atrial fibrillation shortness of breath/ orthopnea Continue Eliquis Continue Lasix Continue metoprolol 3 times daily HPI Patient complains of shortness of breath especially when he lies flat in bed His cardiac enzymes are normal even in the presence of an elevated creatinine NT proBNP is 14,000 ROS: No fever chills or rigors, no cough, phlegm or expectoration, no nausea, vomiting or diarrhea, no hematuria, dysuria, no musculoskeletal complaints, no strokes or seizures, no skin lesions. EXAMINATION: Blood pressure 102/84 mmHg pulse rate 95-100 beats minute irregular in atrial fibrillation afebrile Breath sounds are reduced bilaterally no rhonchi or crackles Heart sounds are irregular REVIEW OF LABS, ECG & MEDICAL DATA Normal hemoglobin Sodium 125 potassium 4.0 Creatinine 1.6 BUN 61 Normal cardiac enzymes Twelve-lead EKG shows atrial fibrillation with a left bundle branch block pattern heart rate 97 beats a minute Past Medical History Past Medical History: Atrial Fibrillation, Atrial Flutter, Asthma, Heart Failure, GERD/Reflux, Hypertension, Osteoarthritis (OA), Pneumonia, Prostate Disorder, Skin Disorder, Sleep Apnea/CPAP/BIPAP Additional Past Medical History / Comment(s): SEE HISTORY DONE BY DR. PACHECO." "spot" on R lung/stable. KATHLEEN/no longer needs to use device. 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 Past Anesthesia/Blood Transfusion Reactions: No Reported Reaction Past Psychological History: No Psychological Hx Reported Smoking Status: Former smoker Past Alcohol Use History: None Reported Past Drug Use History: None Reported - Past Family History Mother Family Medical History: Cancer Additional Family Medical History / Comment(s): Mother at age 82 of lung cancer. Father Family Medical History: Cancer Additional Family Medical History / Comment(s): Father at age 80 of prostrate cancer. Brother(s) Family Medical History: Cancer Additional Family Medical History / Comment(s): Patient has a total of 6 brothers. One brother with history of atrial fibrillation and kidney cancer, second brother with valvular heart disease, third brother with Parkinson's. Daughter(s) Additional Family Medical History / Comment(s): . Medications and Allergies Home Medications Medication Instructions Recorded Confirmed Type Tamsulosin HCl [Flomax] 0.4 mg PO BID@0700,1800 07/12/14 12/19/23 History Multivit-Min/FA/Lycopen/Lutein 1 tab PO DAILY 04/27/21 12/19/23 History [Centrum Silver Tablet] Cholecalciferol (Vitamin D3) 125 mcg PO DAILY 08/13/22 12/19/23 History [Vitamin D3 (125 MCG = 5,000 IU)] Metoprolol Tartrate [Lopressor] 50 mg PO TID@0700,1300,1800 08/13/22 12/19/23 History Midodrine [ProAmatine] 5 mg PO TID@0700,1300,1800 08/13/22 12/19/23 History Apixaban [Eliquis] 2.5 mg PO BID@0700,1800 11/02/23 12/19/23 History Empagliflozin [Jardiance] 10 mg PO DAILY@0700 11/02/23 12/19/23 History Furosemide [Lasix] 40 mg PO BID@0800,1400 11/02/23 12/19/23 History Isosorbide Mononitrate ER [Imdur] 15 mg PO DAILY@0700 11/02/23 12/19/23 History Levothyroxine Sodium [Synthroid] 88 mcg PO DAILY@0500 11/02/23 12/19/23 History Melatonin 6 mg PO HS 11/02/23 12/19/23 History Nitroglycerin Sl Tabs [Nitrostat] 0.4 mg SUBLINGUAL Q5M PRN 11/02/23 12/19/23 History Allergies Allergy/AdvReac Type Severity Reaction Status Date / Time isosorbide mononitrate Allergy Unknown Verified 12/19/23 09:07 [From Imdur] Penicillins Allergy Rash/Hives Verified 12/19/23 09:07 albuterol [From Ventolin HFA] AdvReac Rapid Verified 12/19/23 09:07 Heart Rate amiodarone HCl AdvReac LUNGS/EYE Verified 12/19/23 09:07 [From Cordarone] PROBLEMS codeine AdvReac Nausea & Verified 12/19/23 09:07 Vomiting enalapril maleate AdvReac Cough Verified 12/19/23 09:07 [From Vasotec] enalaprilat dihydrate AdvReac Cough Verified 12/19/23 09:07 [From Vasotec] hydromorphone HCl AdvReac Nausea & Verified 12/19/23 09:07 [From Dilaudid] Vomiting loratadine [From Claritin] AdvReac Rapid Verified 12/19/23 09:07 Heart Rate morphine AdvReac Nausea & Verified 12/19/23 09:07 Vomiting procainamide HCl AdvReac "FLUID ON Verified 12/19/23 09:07 [From Pronestyl] HEART" tetanus toxoid, adsorbed AdvReac "JOINT Verified 12/19/23 09:07 STIFFNESS" Physical Exam Vitals: Vital Signs Temp Pulse Pulse Resp BP BP Pulse Ox 12/20/23 02:24 97.6 F 101 H 15 102/84 96 12/19/23 20:00 110 H 15 12/19/23 19:06 97.5 F L 110 H 15 105/76 98 12/19/23 15:00 97.5 F L 95 18 96/59 98 12/19/23 14:47 87 18 90/55 96 12/19/23 13:06 84 18 90/56 95 12/19/23 10:31 86 18 88/66 97 Intake and Output 12/19/23 12/20/23 12/20/23 22:59 06:59 14:59 Output Total 200 800 Balance -200 -800 Output: Urine 200 800 Other: Weight 102.965 kg 101.6 kg Results 12/19/23 07:13 12/19/23 07:04 Cardiac Enzymes 12/19/23 12/19/23 Range/Units 10:59 14:40 Troponin I <0.012 <0.012 (0.000-0.034) ng/mL Current Medications Generic Name Dose Route Start Last Admin Trade Name Dior PRN Reason Stop Dose Admin Apixaban 2.5 mg 12/19/23 18:00 12/20/23 05:24 Apixaban 2.5 Mg Tablet PO 2.5 mg BID@0700,1800 PHILLY Administration Protocol Cholecalciferol 125 mcg 12/20/23 09:00 12/20/23 08:58 Cholecalciferol 125 Mcg (5000 Iu) Tablet PO 125 mcg DAILY PHILLY Administration Furosemide 40 mg 12/19/23 21:00 12/19/23 21:37 Furosemide 10 Mg/Ml 4 Ml Vial IV 40 mg Q12HR PHILLY Administration Ibuprofen 600 mg 12/19/23 14:52 12/20/23 05:23 Ibuprofen 600 Mg Tab PO 600 mg QID PRN Administration Pain Levothyroxine Sodium 88 mcg 12/20/23 05:00 12/20/23 05:24 Levothyroxine 88 Mcg Tab PO 88 mcg DAILY@0500 PHILLY Administration Melatonin 6 mg 12/19/23 21:00 12/19/23 21:36 Melatonin 3 Mg Tablet PO 6 mg HS PHILLY Administration Metoprolol Tartrate 50 mg 12/19/23 18:00 12/20/23 05:24 Metoprolol Tartrate 50 Mg Tab PO 50 mg TID@0700,1300,1800 PHILLY Administration Midodrine 5 mg 12/19/23 13:00 12/20/23 06:35 Midodrine 5 Mg Tab PO 5 mg TID@0700,1300,1800 PHILLY Administration Naloxone HCl 0.2 mg 12/19/23 08:43 Naloxone 0.4 Mg/Ml 1 Ml Vial IV Q2M PRN Opioid Reversal Tamsulosin HCl 0.4 mg 12/19/23 18:00 12/20/23 05:24 Tamsulosin 0.4 Mg Cap.Er.24h PO 0.4 mg BID@0700,1800 PHILLY Administration Intake and Output 12/19/23 12/20/23 12/20/23 22:59 06:59 14:59 Output Total 200 800 Balance -200 -800 Output: Urine 200 800 Other: Weight 102.965 kg 101.6 kg 12/19/23 07:13 12/19/23 07:04
[2023-12-20 10:26] LABS: ALT 24 U/L (10-49); AST 34 U/L (14-35); Albumin 3.6 g/dL (3.8-4.9); Albumin/Globulin Ratio 1.57 Ratio (1.60-3.17); Alkaline Phosphatase 72 U/L (41-126); BUN/Creat Ratio 31.89 Ratio (12.00-20.00); Blood Urea Nitrogen 57.4 mg/dL (9.0-27.0); Calcium 8.7 mg/dL (8.7-10.3); Carbon Dioxide 25.2 mmol/L (21.6-31.8); Chloride 96 mmol/L (96-109); Globulin 2.3 g/dL (1.6-3.3); Glucose 104 mg/dL (70-110); Potassium 3.9 mmol/L (3.5-5.5); Sodium 135 mmol/L (135-145); Total Bilirubin 0.7 mg/dL (0.3-1.2); Total Protein 5.9 g/dL (6.2-8.2)
[2023-12-20 10:36] LABS: Basophils # (A) 0.03 X 10*3/uL (0.00-0.10); Basophils % (A) 0.6 %; Eosinophils # (A) 0.05 X 10*3/uL (0.04-0.35); Eosinophils % (A) 1.1 %; HCT 39.2 % (39.6-50.0); HGB 13.1 g/dL (13.0-17.0); Lymphocytes # (A) 0.88 X 10*3/uL (0.90-5.00); Lymphocytes % (A) 18.8 %; MCH 32.2 pg (27.0-32.0); MCHC 33.4 g/dL (32.0-37.0); MCV 96.3 FL (80.0-97.0); Mean Platelet Volume 10.9 FL (9.5-12.2); Monocytes # (A) 0.43 X 10*3/uL (0.20-1.00); Monocytes % (A) 9.2 %; NRBC Per 100 WBC 0 X 10*3/uL (0.00-0.01); Neutrophils # (A) 3.29 X 10*3/uL (1.80-7.70); Neutrophils % (A) 70.1 %; Platelet Count 143 X 10*3/uL (140-440); RBC 4.07 X 10*6/uL (4.40-5.60); RDW 13.4 % (11.5-14.5); WBC 4.69 X 10*3/uL (4.50-10.00)
[2023-12-20] MEDS: MIDODRINE 5 MG TAB PO STA (11:42)
--- NOTE | 2023-12-20 16:20 | P.PN ---
Subjective Progress Note Date: 12/20/23 Patient is a 88-year-old male with a past medical history of atrial fibrillation on anticoagulation with Eliquis, chronic CHF, hypertension, osteoarthritis, obstructive sleep apnea no longer on CPAP, BPH and history of cardiac ablation/cardioversions and prior history of smoking presents to ER with comp laints of chest pain and shortness of breath. Patient has been having worsening shortness of breath unable to lay flat for the past few days and also noticed weight gain and increased leg swelling. Denies any fever or chills. No cough or sputum production. Patient does have exertional dyspnea. Patient does have chronic venous stasis and leg swelling and has debridement done of the right lower extremity wound few days back. Patient is currently not on any antibiotics. Chest x-ray showed no evidence for acute pulmonary disease. Tibia-fibula x-ray showed there is no fracture or dislocation. EKG showed atrial fibrillation with aberrant conduction or ventricular premature complexes. Patient is chronically hypotensive and is on midodrine at home. Laboratory data showed WBC 5.4 hemoglobin 13.1 platelets 126, INR 1.2 Sodium 125 potassium 4.0 chloride 96 bicarb is 23 BUN 61 and creatinine 1.61, liver enzymes are not elevated. Troponin x 3 negative proBNP 14,000 and albumin 3.4 Influenza, RSV and COVID-19 PCR not detected. 12/20/2023 Patient is seen in follow-up today currently sitting up in the chair with lower extremities dependent and currently Tex wrap. Swelling somewhat improved and patient was also seen by vascular surgery for the left lower extremity bullae and follows with wounds in the outpatient setting. Dr. Hadley has evaluated the patient continue with wound care and elevate lower extremities while at rest. Cardiology following for CHF exacerbation although patient continues to be hypotensive and blood pressures have been in the low 90s making it difficult to receive IV Lasix. Patient reports swelling is improved and denies any shortness of breath. Patient is inquiring about when he is able to go home. Awaiting cardiology clearance to discuss discharge planning. Patient is currently afebrile with no reports of chest pain or palpitations. Patient jim erating diet with no reported nausea or vomiting noted. Review of systems: Constitutional: No reports of fatigue, fever, or chills Cardiovascular: No reports of chest pain or palpitations Respiratory: No reports of shortness of breath or cough GI: No reports of nausea, vomiting, or diarrhea : No reports of dysuria or retention Neurovascular: No reports of weakness or numbness, reports continued lower extremity swelling although improved All medications have been reviewed Physical exam: Gen: This is a 88-year-old male who is awake, alert and oriented x 3, currently sitting up in the chair, well-developed, elderly appearing, obese HEENT: Head is atraumatic, normocephalic. Pupils equal, round. Sclerae is anicteric. NECK: Supple. No JVD. No lymphadenopathy. No thyromegaly. LUNGS: Breath sounds diminished otherwise clear to auscultation. No wheezes or rhonchi. No intercostal retractions. HEART: S1, S2 are muffled ABDOMEN: Soft. Bowel sounds are present. No masses. No tenderness. EXTREMITIES: No pedal edema. No calf tenderness. Bilateral lower extremity edema, 1+ pitting with some generalized redness, clear drainage noted to the left calf on the Tex wraps and Tex wrap from the toes up to the knees NEUROLOGICAL: Patient is awake, alert and oriented x3. Cranial nerves 2 through 12 are grossly intact. Assessment: Acute on chronic CHF with systolic dysfunction. Ejection fraction 40 to 45% Atypical chest pain. Ruled out ACS Chronic atrial fibrillation with rapid regular response. Prior history of cardioversion ablation Chronic hypotension maintained on midodrine Valvular heart disease Chronic bilateral lower extremity venous stasis with recent debridement of ulcer Hypervolemic hyponatremia, improving CKD stage III Osteoarthritis BPH Obesity with a BMI of 30.4 Obstructive sleep apnea not on CPAP Prior history of smoking DVT prophylaxis patient is already on Eliquis GI prophylaxis Full code Plan: Patient will be continued on telemonitoring. Troponin x 3. Started on IV Lasix 40 mg twice daily and continue with midodrine. Continue with metoprolol for he art rate control. Cardiology has evaluated the patient recommending continuing IV Lasix although has been difficult to receive as patient's blood pressure remains low. Will increase midodrine to 10 mg 3 times daily Continue with Tex wraps to the lower extremities from the toes up to the knees and wound care per vascular surgery as he follows with outpatient. Encouraged the patient to elevate lower extremities while at rest Continue with home medications including levothyroxine. Patient would like to go home and currently awaiting cardiology clearance for discharge planning. Recommend repeat labs in the a.m. to monitor kidney functions and will discuss discharge planning in the next 24 hours The impression and plan of care has been dictated by Nichole So Nurse Pract itioner as directed. Dr. Damon MD I have performed a history and examination and MDM of this patient, discussed the same with the dictator, and agree with the dictator's assessment and plan as written ,documented as a scribe. Based on total visit time, I have performed more than 50% of the visit. Objective - Vital Signs Vital signs: Vital Signs Temp 98.1 F 12/20/23 14:01 Pulse 83 12/20/23 14:01 Resp 18 12/20/23 14:01 BP 97/64 12/20/23 14:01 Pulse Ox 97 12/20/23 14:01 FiO2 Intake & Output 12/19/23 12/20/23 12/20/23 18:59 06:59 18:59 Intake Total 540 Output Total 1000 200 Balance -1000 340 Weight 102.965 kg 101.6 kg Intake: Oral 540 Output: Urine 1000 200 - Labs CBC & Chem 7: 12/20/23 06:55 12/20/23 06:55 Labs: Abnormal Lab Results - Last 24 Hours (Table) 12/20/23 12/20/23 12/20/23 Range/Units 06:55 06:55 06:55 RBC 4.07 L (4.40-5.60) X 10*6/uL Hct 39.2 L (39.6-50.0) % MCH 32.2 H (27.0-32.0) pg Lymphocytes # 0.88 L (0.90-5.00) X 10*3/uL Anion Gap 13.80 H (4.00-12.00) mmol/L BUN 57.4 H (9.0-27.0) mg/dL Creatinine 1.8 H (0.6-1.5) mg/dL Est GFR (CKD-EPI) 36 L (>=60) BUN/Creatinine Ratio 31.89 H (12.00-20.00) Ratio Total Protein 5.9 L (6.2-8.2) g/dL Albumin 3.6 L (3.8-4.9) g/dL Albumin/Globulin Ratio 1.57 L (1.60-3.17) Ratio TSH 0.205 L (0.350-5.500) UIU/ML
[2023-12-20] MEDS: MIDODRINE 5 MG TAB PO SCH (18:14)
[2023-12-21 01:33] LABS: T4, Free (Free Thyroxine) 1.61 ng/dL (0.80-1.80)
[2023-12-21] MEDS: DAPAGLIFLOZIN PROPANEDIOL 5 MG TABLET PO SCH (06:29)
[2023-12-21 07:51] LABS: African American GFR (CKD) 43 (>60 ml/min/1.73 sqM); Anion Gap 5 mmol/L; Blood Urea Nitrogen 60 mg/dL (9-20); Calcium 8.6 mg/dL (8.4-10.2); Carbon Dioxide 27 mmol/L (22-30); Chloride 101 mmol/L (98-107); Glucose 90 mg/dL (74-99); Non-African American GFR(CKD) 37 (>60 ml/min/1.73 sqM); Sodium 133 mmol/L (137-145)
--- NOTE | 2023-12-21 08:44 | P.PN ---
Progress Note - Text 88-year-old white man known to me from the wound clinic patient came with congestive heart failure patient has has a left lower extremity large blister which was open and not really doing the daily dressing change wound is clean and and reviewed using extra silver and right lower extremity is superficial wound to the right lower extremity base of the wound is clean and granulating no fever or chills present we have changed her dressing today with extra silver nonstressed next dressing will be changed on Saturday if patient goes home on the weekend will follow in the wound clinic at [facility] on Saturday
[2023-12-21] MEDS ORDERED: MIDODRINE 5 MG TAB PO PRN (11:20)
[2023-12-21] MEDS: FUROSEMIDE 10 MG/ML 4 ML VIAL IV SCH (11:45)
--- NOTE | 2023-12-21 14:07 | P.PN ---
Subjective Progress Note Date: 12/21/23 SUBJECTIVE: Patient is seen and examined at bedside this a.m. Patient's kidney function has stayed stable. Creatinine 1.8. Today creatinine 1.6. Hemoglobin 13.1. No active signs of bleeding on anticoagulation. have low normal blood pressure. Patient reports that he is chronically low. PHYSICAL EXAMINATION BP 102/84, pulse 96 bpm, irregularly irregular, atrial fibrillation on cafeteria monitor Head: Normocephalic. Eyes: Sclerae nonicteric. Neck: Brisk carotid upstroke, elevated JVD, Lungs: Diminished air entry bilateral lung bases. Crackles audible in mid lung bases. Heart: Irregularly irregular, S1-S2 audible, 2/6 systolic murmur audible Abdomen: Soft nontender, bowel sounds present, Extremities: 2+ pitting edema bilateral lower extremity Neuro: Alert, oriented, no focal neurological deficits. Detailed neuro exam was not performed. ASSESSMENT Atrial fibrillation with resting heart rate of 100 bpm Left bundle branch blocks Mild CHF exacerbation, EF unknown PRIMITIVO Debility and frailty PLAN Obtain limited echocardiogram for LVEF assessment Continue Eliquis Continue IV Lasix 40 mg today. Transition to Bumex 1 mg p.o. daily from tomorrow. Patient was on Lasix 40 mg p.o. twice daily at home with minimal clinical response prior to admission therefore we will transition him to Bumex. Increase metoprolol to 100 mg twice daily Do not use midodrine as scheduled. Only use for SBP less than 100 mmHg. Patient has family has expressed interest in palliative care. They would like to set up outpatient palliative care for the patient. Dave Martinez MD, FACC, RPVI Thank you for allowing [facility] to participate in this patient's care. Please contact us in case of any followup questions. Objective - Vital Signs Vital signs: Vital Signs Temp 97.5 F L 12/21/23 07:00 Pulse 104 H 12/21/23 07:00 Resp 18 12/21/23 07:00 BP 102/57 12/21/23 07:00 Pulse Ox 98 12/21/23 07:00 FiO2 Intake & Output 12/20/23 12/21/23 12/21/23 18:59 06:59 18:59 Intake Total 540 118 Output Total 200 150 Balance 340 -150 118 Weight 102.8 kg Intake: Oral 540 118 Output: Urine 200 150 Other: Voiding Method Urinal # Voids 0 2 - Labs CBC & Chem 7: 12/20/23 06:55 12/21/23 06:21 Labs: Abnormal Lab Results - Last 24 Hours (Table) 12/20/23 12/21/23 Range/Units 06:55 06:21 Sodium 133 L (137-145) mmol/L BUN 60 H (9-20) mg/dL Creatinine 1.66 H (0.66-1.25) mg/dL Free T3 pg/mL 1.60 L (2.30-4.20) pg/mL
[2023-12-21] MEDS: traMADol 50 MG TAB PO PRN (16:14)
--- NOTE | 2023-12-21 17:37 | CA ---
Transthoracic Echo Report Name: Colin Irizarry Age: 88 Gender: M : 1935 Exam Date: 12/21/2023 14:59 Exam Location: [facility] Ht (in): 72 Wt (lb): 226 Ordering Physician: Dave Martinez MD ([id number]) Attending/Referring Phys: Parachute Marker Radha Ibarra RDCS Procedure CPT: Indications: chf Cardiac Hx: Technical Quality: Technically difficult study, Fair Contrast 1: Definity Total Dose (mL): 2 Contrast 2: Total Dose (mL): MEASUREMENTS (Male / Female) Normal Values 2D ECHO LV Diastolic Diameter PLAX 6.4 cm 4.2 - 5.9 / 3.9 - 5.3 cm LV Systolic Diameter PLAX 5.9 cm IVS Diastolic Thickness 1.0 cm 0.6 - 1.0 / 0.6 - 0.9 cm LVPW Diastolic Thickness 1.1 cm 0.6 - 1.0 / 0.6 - 0.9 cm LV Relative Wall Thickness 0.3 RV Internal Dim ED PLAX 2.2 cm LA Systolic Diameter LX 4.8 cm 3.0 - 4.0 / 2.7 - 3.8 cm LV Diastolic Volume MOD BP 196.6 cm??? 67 - 155 / 56 - 104 cm??? LV Systolic Volume MOD BP 154.4 cm??? 22 - 58 / 19 - 49 cm??? LV Ejection Fraction MOD BP 21.4 % >= 55 % LV Cardiac Index MOD BP 1826.5 cm???/min???m??? LV Diastolic Volume MOD 4C 201.8 cm??? LV Systolic Volume MOD 4C 154.5 cm??? LV Ejection Fraction MOD 4C 23.4 % LV Cardiac Index MOD 4C 2049.6 cm???/min???m??? LV Diastolic Length 4C 8.9 cm LV Systolic Length 4C 9.3 cm LV Diastolic Volume MOD 2C 190.7 cm??? LV Systolic Volume MOD 2C 152.5 cm??? LV Ejection Fraction MOD 2C 20.0 % LV Cardiac Index MOD 2C 1656.4 cm???/min???m??? LV Diastolic Length 2C 8.9 cm LV Systolic Length 2C 9.0 cm M-MODE Aortic Root Diameter MM 3.9 cm LA Systolic Diameter MM 4.0 cm LA Ao Ratio MM 1.0 AV Cusp Separation MM 1.4 cm FINDINGS Left Ventricle Left ventricular ejection fraction is estimated at 20-25 %. Moderately increased left ventricular diastolic diameter. Moderately increased left ventricular diastolic volume. Severely increased left ventricular systolic volume. Severely decreased left ventricular ejection fraction. Right Ventricle Right Atrium Left Atrium Moderately increased left atrial diameter. Mitral Valve Aortic Valve Tricuspid Valve Pulmonic Valve Pericardium No pericardial or pleural effusion. Aorta Mildly dilated aortic annulus. CONCLUSIONS Left ventricular ejection fraction is estimated at 20-25 %. Severe left atrial dilatation Severely reduced global LV systolic function Mid to distal anterolateral, lateral inferolateral wall hypokinesia. Apical wall hypokinesia Moderate LA dilatation No Pericardial effusion Previewed by: Dr Dave Martinez (Electronically Signed) Final Date: 21 December 2023 17:37
[2023-12-21] MEDS: METOPROLOL TARTRATE 50 MG TAB PO SCH (19:52)
[2023-12-22] MEDS: ACETAMINOPHEN TAB 325 MG TAB PO PRN (04:25)
[2023-12-22] MEDS: BUMETANIDE 1 MG TAB PO SCH (09:09)
[2023-12-22] MEDS: bisacodyL 5 MG TABLET.DR PO STA (13:24)
[2023-12-22] MEDS: traMADol 50 MG TAB PO PRN (17:23)
--- NOTE | 2023-12-22 20:40 | P.PN ---
Subjective Progress Note Date: 12/22/23 SUBJECTIVE: Patient is seen and examined at bedside this a.m. Patient's kidney function has stayed stable. Kidney function and hemoglobin stable. No active signs of bleeding on anticoagulation. have low normal blood pressure. Patient reports that he is chronically low. PHYSICAL EXAMINATION BP 102/84, pulse 96 bpm, irregularly irregular, atrial fibrillation on quality assurance monitor final Head: Normocephalic. Eyes: Sclerae nonicteric. Neck: Brisk carotid upstroke, elevated JVD, Lungs: Diminished air entry bilateral lung bases. Crackles audible in mid lung bases. Heart: Irregularly irregular, S1-S2 audible, 2/6 systolic murmur audible Abdomen: Soft nontender, bowel sounds present, Extremities: 2+ pitting edema bilateral lower extremity Neuro: Alert, oriented, no focal neurological deficits. Detailed neuro exam was not performed. ASSESSMENT Atrial fibrillation with resting heart rate of 100 bpm Left bundle branch blocks Mild CHF exacerbation, EF unknown PRIMITIVO Debility and frailty PLAN Continue Eliquis Bumex 1 mg p.o. twice daily. Use Bumex 1 mg as needed if he gets more congested. Increase metoprolol to 100 mg twice daily Do not use midodrine as scheduled. Only use for SBP less than 100 mmHg. Patient has family has expressed interest in palliative care. They would like to set up outpatient palliative care for the patient. Consider discharging him on home oxygen. Perform oxygen evaluation prior to discharge PT OT evaluation. Dave Martinez MD, FACC, RPVI Thank you for allowing [facility] to participate in this patient's care. Please contact us in case of any followup questions. Objective - Vital Signs Vital signs: Vital Signs Temp 98.6 F 12/22/23 19:46 Pulse 110 H 12/22/23 19:46 Resp 18 12/22/23 19:46 BP 111/72 12/22/23 19:46 Pulse Ox 97 12/22/23 19:46 FiO2 Intake & Output 12/22/23 12/22/23 12/23/23 06:59 18:59 06:59 Intake Total 320 Output Total 600 300 Balance -600 20 Weight 102.6 kg Intake: Oral 320 Output: Urine 600 300 Other: Voiding Method Urinal # Voids 1 2 - Labs CBC & Chem 7: 12/20/23 06:55 12/21/23 06:21
[2023-12-23] MEDS: BUMETANIDE 0.25 MG/ML 4 ML VIAL IVP STA (10:01)
--- NOTE | 2023-12-23 10:51 | P.PN ---
Subjective HISTORY OF PRESENT ILLNESS: Patient examined this morning at the bedside. Patient currently denies chest pain or pressure. Patient reports continued shortness of breath despite oral diuretics. Kidney function from this morning remains pending. Vital signs are stable. Patient is mildly tachycardic this morning with a heart rate in the low 100s. He remains in atrial fibrillation. He is on room air with oxygen saturations greater than 92%. PHYSICAL EXAM: VITAL SIGNS: Reviewed. GENERAL: Well-developed in no acute distress. NECK: Supple. No JVD or thyromegaly LUNGS: Respirations even and unlabored. Lungs diminished with bibasilar crackles HEART: Irregular rate and rhythm. S1 and S2 heard. Systolic murmur noted EXTREMITIES: Normal range of motion. No clubbing or cyanosis. Peripheral pulses intact. 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 Currently awaiting kidney function from this morning Patient's family apparently interested in palliative care upon discharge. Will defer to internal medicine. Further recommendations pending patient course Nurse practitioner note has been reviewed by physician. Signing provider agrees with the documented findings, assessment, and plan of care documented by TRAINMAN as a scribe. Objective - Vital Signs Vital signs: Vital Signs Temp 97.9 F 12/23/23 07:00 Pulse 107 H 12/23/23 07:00 Resp 17 12/23/23 07:00 BP 103/65 12/23/23 07:00 Pulse Ox 98 12/23/23 07:00 FiO2 Intake & Output 12/22/23 12/23/23 12/23/23 18:59 06:59 18:59 Intake Total 320 Output Total 300 700 225 Balance 20 -700 -225 Weight 103.7 kg Intake: Oral 320 Output: Urine 300 700 225 Other: Voiding Method Urinal Urinal # Voids 2 1 - Labs CBC & Chem 7: 12/20/23 06:55 12/21/23 06:21
[2023-12-23 11:51] LABS: African American GFR (CKD) 45 (>60 ml/min/1.73 sqM); Anion Gap 4 mmol/L; Blood Urea Nitrogen 58 mg/dL (9-20); Calcium 8.6 mg/dL (8.4-10.2); Carbon Dioxide 30 mmol/L (22-30); Chloride 101 mmol/L (98-107); Glucose 102 mg/dL (74-99); Non-African American GFR(CKD) 39 (>60 ml/min/1.73 sqM); Potassium 3.7 mmol/L (3.5-5.1); Sodium 135 mmol/L (137-145)
--- NOTE | 2023-12-23 12:37 | P.PN ---
Subjective Progress Note Date: 12/22/23 Patient is a 88-year-old male with a past medical history of atrial fibrillation on anticoagulation with Eliquis, chronic CHF, hypertension, osteoarthritis, obstructive sleep apnea no longer on CPAP, BPH and history of cardiac ablation/cardioversions and prior history of smoking presents to ER with compla ints of chest pain and shortness of breath. Patient has been having worsening shortness of breath unable to lay flat for the past few days and also noticed weight gain and increased leg swelling. Denies any fever or chills. No cough or sputum production. Patient does have exertional dyspnea. Patient does have chronic venous stasis and leg swelling and has debridement done of the right lower extremity wound few days back. Patient is currently not on any antibiotics. Chest x-ray showed no evidence for acute pulmonary disease. Tibia-fibula x-ray showed there is no fracture or dislocation. EKG showed atrial fibrillation with aberrant conduction or ventricular premature complexes. Patient is chronically hypotensive and is on midodrine at home. Laboratory data showed WBC 5.4 hemoglobin 13.1 platelets 126, INR 1.2 Sodium 125 potassium 4.0 chloride 96 bicarb is 23 BUN 61 and creatinine 1.61, liver enzymes are not elevated. Troponin x 3 negative proBNP 14,000 and albumin 3.4 Influenza, RSV and COVID-19 PCR not detected. 12/20/2023 Patient is seen in follow-up today currently sitting up in the chair with lower extremities dependent and currently Tex wrap. Swelling somewhat improved and patient was also seen by vascular surgery for the left lower extremity bullae and follows with wounds in the outpatient setting. Dr. Hadley has evaluated the patient continue with wound care and elevate lower extremities while at rest. Cardiology following for CHF exacerbation although patient continues to be hypotensive and blood pressures have been in the low 90s making it difficult to receive IV Lasix. Patient reports swelling is improved and denies any shortness of breath. Patient is inquiring about when he is able to go home. Awaiting cardiology clearance to discuss discharge planning. Patient is currently afebrile with no reports of chest pain or palpitations. Patient erica ating diet with no reported nausea or vomiting noted. 12/21/2023 Patient is currently sitting on side of the bed. Awake alert and oriented x 3. No complaints of chest pain. Shortness of breath is improving as well as leg swelling. Patient is being continued on Lasix IV 40 mg and transition to Bumex 1 mg p.o. daily from tomorrow. Metoprolol dose increased to 100 mg p.o. twice daily. Admitted 10 for SBP less than 100. Laboratory data showed sodium 133 potassium 4.0 chloride 101 bicarb is 27 BUN 16 creatinine 1.66. Cardiology is on board. 12/22/2023 Patient is currently resting in the bed. Awake alert and oriented x 3. No complaints of chest pain or shortness of breath. Leg swelling is improving. No HEADACHE or dizziness or lightheadedness. Patient is on room air at 95% No new laboratory data today.. Currently on Bumex starting today. Follow-up BMP tomorrow. Cardiology is on board. 2D echocardiogram was done which showed left ventricular ejection fraction 20 to 25% with severe left atrial dilatation and severely reduced global LV systolic function. Moderate LA dilatation. Review of systems: Constitutional: No reports of fatigue, fever, or chills Cardiovascular: No reports of chest pain or palpitations Respiratory: No reports of shortness of breath or cough GI: No reports of nausea, vomiting, or diarrhea : No reports of dysuria or retention Neurovascular: No reports of weakness or numbness, reports continued lower extremity swelling although improved All medications have been reviewed Physical exam: Gen: This is a 88-year-old male who is awake, alert and oriented x 3, currently sitting up in the chair, well-developed, elderly appearing, obese HEENT: Head is atraumatic, normocephalic. Pupils equal, round. Sclerae is anicteric. NECK: Supple. No JVD. No lymphadenopathy. No thyromegaly. LUNGS: Breath sounds diminished otherwise clear to auscultation. No wheezes or rhonchi. No intercostal retractions. HEART: S1, S2 are muffled ABDOMEN: Soft. Bowel sounds are present. No masses. No tenderness. EXTREMITIES: No pedal edema. No calf tenderness. Bilateral lower extremity edema, 1+ pitting with some generalized redness, clear drainage noted to the le ft calf on the Tex wraps and Tex wrap from the toes up to the knees NEUROLOGICAL: Patient is awake, alert and oriented x3. Cranial nerves 2 through 12 are grossly intact. Assessment: Acute on chronic CHF with systolic dysfunction. Ejection fraction 40 to 45%. Repeat echocardiogram showed ejection fraction 20 to 25%. Atypical chest pain. Ruled out ACS Chronic atrial fibrillation with rapid regular response. Prior history of cardioversion ablation Chronic hypotension maintained on midodrine Valvular heart disease Chronic bilateral lower extremity venous stasis with recent debridement of ulcer Hypervolemic hyponatremia, improving CKD stage III Osteoarthritis BPH Obesity with a BMI of 30.4 Obstructive sleep apnea not on CPAP Prior history of smoking DVT prophylaxis patient is already on Eliquis GI prophylaxis Full code Plan: Patient will be continued on telemonitoring. Troponin x 3 negative.. Continue with IV Lasix 40 mg daily and transition to Bumex tomorrow. Midodrine as needed only.. Increase the dose of metoprolol for better heart rate control. Continue with Tex wraps to the lower extremities from the toes up to the knees and wound care per vascular surgery as he follows with outpatient. Encouraged the patient to elevate lower extremities while at rest Continue with home medications including levothyroxine. Cardiology is following. 2D echocardiogram showed reduced ejection fraction at 20 to 25%. Will discuss with family regarding CODE STATUS and further treatment goals. Recommend repeat labs in the a.m. to monitor kidney functions and will discuss discharge planning in the next 24 hours Objective - Vital Signs Vital signs: Vital Signs Temp 97.9 F 12/23/23 07:00 Pulse 107 H 12/23/23 08:00 Resp 19 12/23/23 12:08 BP 103/65 12/23/23 07:00 Pulse Ox 97 12/23/23 12:08 FiO2 Intake & Output 12/22/23 12/23/23 12/23/23 18:59 06:59 18:59 Intake Total 320 Output Total 300 700 225 Balance 20 -700 -225 Weight 103.7 kg Intake: Oral 320 Output: Urine 300 700 225 Other: Voiding Method Urinal Urinal Urinal # Voids 2 1 - Labs CBC & Chem 7: 12/20/23 06:55 12/23/23 10:32 Labs: Abnormal Lab Results - Last 24 Hours (Table) 12/23/23 Range/Units 10:32 Sodium 135 L (137-145) mmol/L BUN 58 H (9-20) mg/dL Creatinine 1.58 H (0.66-1.25) mg/dL Glucose 102 H (74-99) mg/dL
--- NOTE | 2023-12-23 12:37 | P.PN ---
Subjective Progress Note Date: 12/21/23 Patient is a 88-year-old male with a past medical history of atrial fibrillation on anticoagulation with Eliquis, chronic CHF, hypertension, osteoarthritis, obstructive sleep apnea no longer on CPAP, BPH and history of cardiac ablation/cardioversions and prior history of smoking presents to ER with compla ints of chest pain and shortness of breath. Patient has been having worsening shortness of breath unable to lay flat for the past few days and also noticed weight gain and increased leg swelling. Denies any fever or chills. No cough or sputum production. Patient does have exertional dyspnea. Patient does have chronic venous stasis and leg swelling and has debridement done of the right lower extremity wound few days back. Patient is currently not on any antibiotics. Chest x-ray showed no evidence for acute pulmonary disease. Tibia-fibula x-ray showed there is no fracture or dislocation. EKG showed atrial fibrillation with aberrant conduction or ventricular premature complexes. Patient is chronically hypotensive and is on midodrine at home. Laboratory data showed WBC 5.4 hemoglobin 13.1 platelets 126, INR 1.2 Sodium 125 potassium 4.0 chloride 96 bicarb is 23 BUN 61 and creatinine 1.61, liver enzymes are not elevated. Troponin x 3 negative proBNP 14,000 and albumin 3.4 Influenza, RSV and COVID-19 PCR not detected. 12/20/2023 Patient is seen in follow-up today currently sitting up in the chair with lower extremities dependent and currently Tex wrap. Swelling somewhat improved and patient was also seen by vascular surgery for the left lower extremity bullae and follows with wounds in the outpatient setting. Dr. Hadley has evaluated the patient continue with wound care and elevate lower extremities while at rest. Cardiology following for CHF exacerbation although patient continues to be hypotensive and blood pressures have been in the low 90s making it difficult to receive IV Lasix. Patient reports swelling is improved and denies any shortness of breath. Patient is inquiring about when he is able to go home. Awaiting cardiology clearance to discuss discharge planning. Patient is currently afebrile with no reports of chest pain or palpitations. Patient erica ating diet with no reported nausea or vomiting noted. 12/21/2023 Patient is currently sitting on side of the bed. Awake alert and oriented x 3. No complaints of chest pain. Shortness of breath is improving as well as leg swelling. Patient is being continued on Lasix IV 40 mg and transition to Bumex 1 mg p.o. daily from tomorrow. Metoprolol dose increased to 100 mg p.o. twice daily. Admitted 10 for SBP less than 100. Laboratory data showed sodium 133 potassium 4.0 chloride 101 bicarb is 27 BUN 16 creatinine 1.66. Cardiology is on board. Review of systems: Constitutional: No reports of fatigue, fever, or chills Cardiovascular: No reports of chest pain or palpitations Respiratory: No reports of shortness of breath or cough GI: No reports of nausea, vomiting, or diarrhea : No reports of dysuria or retention Neurovascular: No reports of weakness or numbness, reports continued lower ext remity swelling although improved All medications have been reviewed Physical exam: Gen: This is a 88-year-old male who is awake, alert and oriented x 3, currently sitting up in the chair, well-developed, elderly appearing, obese HEENT: Head is atraumatic, normocephalic. Pupils equal, round. Sclerae is anicteric. NECK: Supple. No JVD. No lymphadenopathy. No thyromegaly. LUNGS: Breath sounds diminished otherwise clear to auscultation. No wheezes or rhonchi. No intercostal retractions. HEART: S1, S2 are muffled ABDOMEN: Soft. Bowel sounds are present. No masses. No tenderness. EXTREMITIES: No pedal edema. No calf tenderness. Bilateral lower extremity edema, 1+ pitting with some generalized redness, clear drainage noted to the left calf on the Tex wraps and Tex wrap from the toes up to the knees NEUROLOGICAL: Patient is awake, alert and oriented x3. Cranial nerves 2 through 12 are grossly intact. Assessment: Acute on chronic CHF with systolic dysfunction. Ejection fraction 40 to 45% Atypical chest pain. Ruled out ACS Chronic atrial fibrillation with rapid regular response. Prior history of cardioversion ablation Chronic hypotension maintained on midodrine Valvular heart disease Chronic bilateral lower extremity venous stasis with recent debridement of ulcer Hypervolemic hyponatremia, improving CKD stage III Osteoarthritis BPH Obesity with a BMI of 30.4 Obstructive sleep apnea not on CPAP Prior history of smoking DVT prophylaxis patient is already on Eliquis GI prophylaxis Full code Plan: Patient will be continued on telemonitoring. Troponin x 3 negative.. Continue with IV Lasix 40 mg daily and transition to Bumex tomorrow. Midodrine as needed.. Increase the dose of metoprolol for better heart rate control. Cardiology has evaluated the patient recommending continuing IV Lasix although has been difficult to receive as patient's blood pressure remains low. Will increase midodrine to 10 mg 3 times daily Continue with Tex wraps to the lower extremities from the toes up to the knees and wound care per vascular surgery as he follows with outpatient. Encouraged the patient to elevate lower extremities while at rest Continue with home medications including levothyroxine. Cardiology is following. 2D echocardiogram was ordered. Recommend repeat labs in the a.m. to monitor kidney functions and will discuss discharge planning in the next 24 hours Objective - Vital Signs Vital signs: Vital Signs Temp 98.3 F 12/21/23 19:13 Pulse 85 12/21/23 19:13 Resp 15 12/21/23 19:13 BP 102/63 12/21/23 19:13 Pulse Ox 96 12/21/23 19:13 FiO2 Intake & Output 12/21/23 12/21/23 12/22/23 06:59 18:59 06:59 Intake Total 236 Output Total 150 Balance -150 236 Weight 102.8 kg Intake: Oral 236 Output: Urine 150 Other: Voiding Method Urinal # Voids 2 4 - Labs CBC & Chem 7: 12/20/23 06:55 12/23/23 10:32 Labs: Abnormal Lab Results - Last 24 Hours (Table) 12/20/23 12/21/23 Range/Units 06:55 06:21 Sodium 133 L (137-145) mmol/L BUN 60 H (9-20) mg/dL Creatinine 1.66 H (0.66-1.25) mg/dL Free T3 pg/mL 1.60 L (2.30-4.20) pg/mL
--- NOTE | 2023-12-23 15:42 | P.PN ---
Subjective Progress Note Date: 12/23/23 Patient is a 88-year-old male with a past medical history of atrial fibrillation on anticoagulation with Eliquis, chronic CHF, hypertension, osteoarthritis, obstructive sleep apnea no longer on CPAP, BPH and history of cardiac ablation/cardioversions and prior history of smoking presents to ER with comp laints of chest pain and shortness of breath. Patient has been having worsening shortness of breath unable to lay flat for the past few days and also noticed weight gain and increased leg swelling. Denies any fever or chills. No cough or sputum production. Patient does have exertional dyspnea. Patient does have chronic venous stasis and leg swelling and has debridement done of the right lower extremity wound few days back. Patient is currently not on any antibiotics. Chest x-ray showed no evidence for acute pulmonary disease. Tibia-fibula x-ray showed there is no fracture or dislocation. EKG showed atrial fibrillation with aberrant conduction or ventricular premature complexes. Patient is chronically hypotensive and is on midodrine at home. Laboratory data showed WBC 5.4 hemoglobin 13.1 platelets 126, INR 1.2 Sodium 125 potassium 4.0 chloride 96 bicarb is 23 BUN 61 and creatinine 1.61, liver enzymes are not elevated. Troponin x 3 negative proBNP 14,000 and albumin 3.4 Influenza, RSV and COVID-19 PCR not detected. 12/20/2023 Patient is seen in follow-up today currently sitting up in the chair with lower extremities dependent and currently Tex wrap. Swelling somewhat improved and patient was also seen by vascular surgery for the left lower extremity bullae and follows with wounds in the outpatient setting. Dr. Hadley has evaluated the patient continue with wound care and elevate lower extremities while at rest. Cardiology following for CHF exacerbation although patient continues to be hypotensive and blood pressures have been in the low 90s making it difficult to receive IV Lasix. Patient reports swelling is improved and denies any shortness of breath. Patient is inquiring about when he is able to go home. Awaiting cardiology clearance to discuss discharge planning. Patient is currently afebrile with no reports of chest pain or palpitations. Patient jim erating diet with no reported nausea or vomiting noted. 12/23/2023 Patient is seen in follow-up today with cardiology following. Given a dose of IV Bumex today and being transition to twice daily oral recommend monitoring overnight with follow-up labs to monitor kidney functions and possible discharge planning in the next 24 hours. Patient with lower extremity wounds evaluated by Dr. Hadley and will continue to follow with the wound care center in the outpatient setting. Continue Tex wraps to lower extremities and elevating while at rest. Patient currently maintained on 3 L via nasal cannula and does not normally wear oxygen outpatient, have evaluated for possible home O2 although patient does not qualify. Recommend home O2 evaluation on room air with exertion. Patient is afebrile denies chest pain or palpitations. Continues to report shortness of breath and this next on minimal exertion. Patient reports does not get up and walk around much. Will monitor overnight and discuss further with cardiology with possible discharge planning in the next 24 hours. Review of systems: Constitutional: No reports of fatigue, fever, or chills Cardiovascular: No reports of chest pain or palpitations Respiratory: reports of continued shortness of breath with minimal exertion GI: No reports of nausea, vomiting, or diarrhea : No reports of dysuria or retention Neurovascular: reports of generalized weakness , reports continued lower extremity swelling although improved All medications have been reviewed Physical exam: Gen: This is a 88-year-old male who is awake, alert and oriented x 3, currently sitting up in the chair, well-developed, elderly appearing, obese HEENT: Head is atraumatic, normocephalic. Pupils equal, round. Sclerae is anicteric. NECK: Supple. No JVD. No lymphadenopathy. No thyromegaly. LUNGS: Breath sounds diminished otherwise clear to auscultation. No wheezes or rhonchi. No intercostal retractions. HEART: S1, S2 are muffled ABDOMEN: Soft. Bowel sounds are present. No masses. No tenderness. EXTREMITIES: No pedal edema. No calf tenderness. Bilateral lower extremity edema, 1+ pitting with some generalized redness, clear drainage noted to the le ft calf on the Tex wraps and Tex wrap from the toes up to the knees NEUROLOGICAL: Patient is awake, alert and oriented x3. Cranial nerves 2 through 12 are grossly intact. Diffusely weak Assessment: Acute on chronic CHF with systolic dysfunction. Ejection fraction 40 to 45% Atypical chest pain. Ruled out ACS Chronic atrial fibrillation with rapid ventricular response. Prior history of cardioversion ablation Chronic hypotension maintained on midodrine Valvular heart disease Chronic bilateral lower extremity venous stasis with recent debridement of ulcer by Dr. Hadley and emergency room [place] [facility] Hypervolemic hyponatremia, improving CKD stage III Osteoarthritis BPH Obesity with a BMI of 30.4 Obstructive sleep apnea not on CPAP Prior history of smoking DVT prophylaxis patient is already on Eliquis GI prophylaxis Full code Plan: Patient will be continued on telemonitoring. Troponin x 3. Started on IV Lasix 40 mg twice daily and continue with midodrine. Continue with metoprolol for heart rate control. Cardiology has evaluated the patient recommending continuing IV Lasix although has been difficult to receive as patient's blood pressure remains low. Patient to be given a one-time dose of IV Bumex today per cardiology and will transition to Bumex oral twice daily recommend monitoring overnight with follow-up labs to monitor kidney functions Continue with midodrine as needed per cardiology Patient to follow-up with the wound care center with Dr. Hadley outpatient regarding lower extremity wound. Continue with Tex wraps to the lower extremities from the toes up to the knees and wound care per vascular surgery as he follows with outpatient. Encouraged the patient to elevate lower extremities while at rest Continue with home medications including levothyroxine. Patient and family are discussing palliative care on discharge which will follow-up with the patient in the outpatient setting Recommend repeat labs in the a.m. to monitor kidney functions and will discuss discharge planning in the next 24 hours once cleared by cardiology The impression and plan of care has been dictated by Nichole So, Nurse Practitioner as directed. Dr. Tori MD I have performed a history and examination and MDM of this patient, discussed the same with the dictator, and agree with the dictator's assessment and plan as written ,documented as a scribe. Based on total visit time, I have performed more than 50% of the visit. Objective - Vital Signs Vital signs: Vital Signs Temp 97.9 F 12/23/23 07:00 Pulse 107 H 12/23/23 07:00 Resp 17 12/23/23 07:00 BP 103/65 12/23/23 07:00 Pulse Ox 98 12/23/23 07:00 FiO2 Intake & Output 12/22/23 12/23/23 12/23/23 18:59 06:59 18:59 Intake Total 320 Output Total 300 700 225 Balance 20 -700 -225 Weight 103.7 kg Intake: Oral 320 Output: Urine 300 700 225 Other: Voiding Method Urinal Urinal # Voids 2 1 - Labs CBC & Chem 7: 12/20/23 06:55 12/23/23 10:32
[2023-12-23 20:54] LABS: Glucose,Whole Blood 162 mg/dL (70-110)
--- NOTE | 2023-12-23 23:22 | PN ---
PROGRESS NOTE SUBJECTIVE: This is an 88-year-old gentleman. The patient has history of congestive heart failure. The patient had a large blister involving the left lower extremity. Today we have changed the dressing. The patient is on IV antibiotic. No fever or chills present. We have been using Aquacel silver. Base of the wound is granulating. The patient is going home. We will discharge, will follow up in the wound clinic. I have discussed with his for followup and dressing should be changed every 48 hours using Aquacel silver. MMODL / IJN: [id number] /
[2023-12-24 07:35] VITALS: BP 102/63; PULSE 84; RESP 16; TEMP 97.9
[2023-12-24 08:41] LABS: BUN/Creat Ratio 31.17 Ratio (12.00-20.00); Blood Urea Nitrogen 56.1 mg/dL (9.0-27.0); Calcium 8.4 mg/dL (8.7-10.3); Chloride 99 mmol/L (96-109); Glucose 94 mg/dL (70-110); Potassium 4.1 mmol/L (3.5-5.5); Sodium 137 mmol/L (135-145)
[2023-12-24] MEDS: BUMETANIDE 0.25 MG/ML 4 ML VIAL IVP STA (08:54)
--- NOTE | 2023-12-24 10:13 | P.PN ---
Subjective HISTORY OF PRESENT ILLNESS: Patient examined this morning at the bedside. Patient currently denies chest pain or pressure. Patient reports continued shortness of breath despite oral diuretics. Kidney function from this morning remains pending. Vital signs are stable. Patient is mildly tachycardic this morning with a heart rate in the low 100s. He remains in atrial fibrillation. He is on room air with oxygen saturations greater than 92%. 12/24/2023 Patient examined this morning at the bedside. Patient states he is feeling much better today. He reports improvement in his shortness of breath. Vital signs are stable. He denies any chest pain or pressure. PHYSICAL EXAM: VITAL SIGNS: Reviewed. GENERAL: Well-developed in no acute distress. NECK: Supple. No JVD or thyromegaly LUNGS: Respirations even and unlabored. Lungs diminished bilaterally. HEART: Irregular rate and rhythm. S1 and S2 heard. Systolic murmur noted EXTREMITIES: Normal range of motion. No clubbing or cyanosis. Peripheral pulses intact. 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 Currently awaiting kidney function from this morning Patient's family apparently interested in palliative care upon discharge. Will defer to internal medicine. Patient is currently stable from a cardiac perspective Further recommendations pending patient course Nurse practitioner note has been reviewed by physician. Signing provider agrees with the documented findings, assessment, and plan of care documented by [employer] as a scribe. Objective - Vital Signs Vital signs: Vital Signs Temp 97.9 F 12/24/23 07:00 Pulse 84 12/24/23 07:00 Resp 16 12/24/23 07:00 BP 102/63 12/24/23 07:00 Pulse Ox 97 12/24/23 07:00 FiO2 Intake & Output 12/23/23 12/24/23 12/24/23 18:59 06:59 18:59 Output Total 725 575 Balance -725 -575 Weight 103.9 kg Output: Urine 248 970 Other: Voiding Method Urinal Urinal - Labs CBC & Chem 7: 12/20/23 06:55 12/24/23 06:10 Labs: Abnormal Lab Results - Last 24 Hours (Table) 12/23/23 12/23/23 12/24/23 Range/Units 10:32 20:53 06:10 Sodium 135 L (137-145) mmol/L BUN 58 H 56.1 H (9-20) mg/dL Creatinine 1.58 H 1.8 H (0.66-1.25) mg/dL Est GFR (CKD-EPI) 36 L (>=60) BUN/Creatinine Ratio 31.17 H (12.00-20.00) Ratio Glucose 102 H (74-99) mg/dL POC Glucose (mg/dL) 162 H (70-110) mg/dL Calcium 8.4 L (8.7-10.3) mg/dL
== END 2023-12-24 11:52 | disposition hospice, home (50) | DRG 291 ==
LOC: EC 06:48 → 6NMEDSUR 08:45 → OBSVTOIN 12-23 10:27
PROVIDERS: ADMIT Internal Medicine; ATTEND Internal Medicine
DX: I13.0 Hypertensive heart and chronic kidney disease with heart failure and stage 1 through stage 4 chronic kidney disease, or unspecified chronic kidney disease (principal); I50.23 Acute on chronic systolic (congestive) heart failure; I48.19 Other persistent atrial fibrillation; N17.9 Acute kidney failure, unspecified; E87.1 Hypo-osmolality and hyponatremia; L97.929 Non-pressure chronic ulcer of unspecified part of left lower leg with unspecified severity; L97.919 Non-pressure chronic ulcer of unspecified part of right lower leg with unspecified severity; E66.9 Obesity, unspecified; Z68.31 Body mass index [BMI] 31.0-31.9, adult; I42.9 Cardiomyopathy, unspecified; E03.9 Hypothyroidism, unspecified; I44.7 Left bundle-branch block, unspecified; N40.0 Benign prostatic hyperplasia without lower urinary tract symptoms; I95.89 Other hypotension; I87.8 Other specified disorders of veins; N18.30 Chronic kidney disease, stage 3 unspecified; M19.90 Unspecified osteoarthritis, unspecified site; G47.33 Obstructive sleep apnea (adult) (pediatric); K21.9 Gastro-esophageal reflux disease without esophagitis; J45.909 Unspecified asthma, uncomplicated; Z96.653 Presence of artificial knee joint, bilateral; Z96.643 Presence of artificial hip joint, bilateral; Z51.5 Encounter for palliative care; Z79.899 Other long term (current) drug therapy; Z79.890 Hormone replacement therapy; Z79.84 Long term (current) use of oral hypoglycemic drugs; Z79.01 Long term (current) use of anticoagulants; Z87.891 Personal history of nicotine dependence; Z87.01 Personal history of pneumonia (recurrent); Z88.0 Allergy status to penicillin; Z88.8 Allergy status to other drugs, medicaments and biological substances; Z88.5 Allergy status to narcotic agent; Z88.7 Allergy status to serum and vaccine
CPT/HCPCS: 36415; 71046; 80048; 80053; 83735; 83880; 84439; 84443; 84481; 84484; 85025; 85610; 85730; 87636; 93005; 93306; 96374; 99285

== ENCOUNTER → 2024-01-10 | Outpatient (CLI) | payer MEDICARE ==
[2024-01-10 15:57] LABS: NT-Pro-B-Type Natriuretic Pept 13112 pg/mL (0-450)
[2024-01-10 16:10] LABS: BUN/Creat Ratio 39.65 Ratio (12.00-20.00); Blood Urea Nitrogen 67.4 mg/dL (9.0-27.0); Carbon Dioxide 29.3 mmol/L (21.6-31.8); Chloride 76 mmol/L (96-109); Glucose 147 mg/dL (70-110); Potassium 2.7 mmol/L (3.5-5.5); Sodium 124 mmol/L (135-145)
[2024-01-10 16:11] LABS: Calcium 9.5 mg/dL (8.7-10.3)
== END | disposition home or self-care (01) ==
LOC: LABWHC1 09:49
PROVIDERS: ATTEND Internal Medicine Interventional Cardiology
DX: I50.22 Chronic systolic (congestive) heart failure (principal)
CPT/HCPCS: 36415; 80048; 83880

== ENCOUNTER 2024-01-16 09:02 | Inpatient (IN) | payer MEDICARE ==
--- NOTE | 2024-01-16 09:13 | ED ---
General Adult HPI - General Stated complaint: chest pain/SOB Time Seen by Provider: 01/16/24 09:05 Source: patient, RN notes reviewed, old records reviewed - History of Present Illness Initial comments: This is an 88-year-old male who presents to the emergency department stating that about 6 days ago he was told he had hypokalemia and should come to the hospital but he did not want to go so his primary medical care doctor gave him potassium to take at home he states he woke up this morning felt weak overall to the point where he thought he needed to come back to the hospital and be seen. Patient states if he lies flat he has chest pain but when he sits up it seems to go away. Patient denies any difficulty breathing or shortness of breath. Patient has any fever chills or cough. Patient denies any headache patient has numbness weakness. Patient has any abdominal pain patient has nausea vomiting diarrhea. - Related Data Home Medications Medication Instructions Recorded Confirmed Tamsulosin HCl [Flomax] 0.4 mg PO BID@0700,1800 07/12/14 01/16/24 Multivit-Min/FA/Lycopen/Lutein 1 tab PO DAILY 04/27/21 01/16/24 [Centrum Silver Tablet] Cholecalciferol (Vitamin D3) 125 mcg PO DAILY 08/13/22 01/16/24 [Vitamin D3 (125 MCG = 5,000 IU)] Midodrine [ProAmatine] 5 mg PO TID@0700,1300,1800 08/13/22 01/16/24 Apixaban [Eliquis] 2.5 mg PO BID@0700,1800 11/02/23 01/16/24 Levothyroxine Sodium [Synthroid] 88 mcg PO DAILY@0500 11/02/23 01/16/24 Melatonin 6 mg PO HS 11/02/23 01/16/24 Nitroglycerin Sl Tabs [Nitrostat] 0.4 mg SL Q5M PRN 11/02/23 01/16/24 Azithromycin [Zithromax Z Pack] See Taper PO DAILY 01/16/24 01/16/24 Bumetanide [BUMEX] 2 mg PO DAILY 01/16/24 01/16/24 Bumetanide [Bumex] 1 mg PO DAILY@1400 01/16/24 01/16/24 Empagliflozin [Jardiance] 10 mg PO DAILY 01/16/24 01/16/24 Metoprolol Tartrate [Lopressor] 50 mg PO DAILY@1400 01/16/24 01/16/24 Metoprolol Tartrate [Lopressor] 75 mg PO BID@0700,1800 01/16/24 01/16/24 Ondansetron Odt [Zofran Odt] 4 mg PO Q6H PRN 01/16/24 01/16/24 Potassium Chloride [Klor-Con 10 ER] See Taper PO DIRECTED 01/16/24 01/16/24 Sennosides/Docusate Sodium [Alexa 1 tab PO DAILY 01/16/24 01/16/24 Colace] metOLazone 2.5 mg PO MO 01/16/24 01/16/24 Allergies Allergy/AdvReac Type Severity Reaction Status Date / Time isosorbide mononitrate Allergy Unknown Verified 01/16/24 12:22 [From Imdur] Penicillins Allergy Rash/Hives Verified 01/16/24 12:22 albuterol [From Ventolin HFA] AdvReac Rapid Verified 01/16/24 12:22 Heart Rate amiodarone HCl AdvReac LUNGS/EYE Verified 01/16/24 12:22 [From Cordarone] PROBLEMS codeine AdvReac Nausea & Verified 01/16/24 12:22 Vomiting enalapril maleate AdvReac Cough Verified 01/16/24 12:22 [From Vasotec] enalaprilat dihydrate AdvReac Cough Verified 01/16/24 12:22 [From Vasotec] hydromorphone HCl AdvReac Nausea & Verified 01/16/24 12:22 [From Dilaudid] Vomiting loratadine [From Claritin] AdvReac Rapid Verified 01/16/24 12:22 Heart Rate morphine AdvReac Nausea & Verified 01/16/24 12:22 Vomiting procainamide HCl AdvReac "FLUID ON Verified 01/16/24 12:22 [From Pronestyl] HEART" tetanus toxoid, adsorbed AdvReac "JOINT Verified 01/16/24 12:22 STIFFNESS" Review of Systems ROS Statement: Those systems with pertinent positive or pertinent negative responses have been documented in the HPI. ROS Other: All systems not noted in ROS Statement are negative. Past Medical History Past Medical History: Atrial Fibrillation, Atrial Flutter, Asthma, Heart Failure, GERD/Reflux, Hypertension, Osteoarthritis (OA), Pneumonia, Prostate Disorder, Skin Disorder, Sleep Apnea/CPAP/BIPAP Additional Past Medical History / Comment(s): SEE HISTORY DONE BY DR. PACHECO." "spot" on R lung/stable. KATHLEEN/no longer needs to use device. 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 Past Anesthesia/Blood Transfusion Reactions: No Reported Reaction Past Psychological History: No Psychological Hx Reported Smoking Status: Former smoker Past Alcohol Use History: None Reported Past Drug Use History: None Reported - Past Family History Mother Family Medical History: Cancer Additional Family Medical History / Comment(s): Mother at age 82 of lung cancer. Father Family Medical History: Cancer Additional Family Medical History / Comment(s): Father at age 80 of prostrate cancer. Brother(s) Family Medical History: Cancer Additional Family Medical History / Comment(s): Patient has a total of 6 brothers. One brother with history of atrial fibrillation and kidney cancer, second brother with valvular heart disease, third brother with Parkinson's. Daughter(s) Additional Family Medical History / Comment(s): . General Exam - General Exam Comments Initial Comments: GENERAL: Patient is well-developed and well-nourished. Patient is nontoxic and well- hydrated and is in no distress. ENT: Neck is soft and supple. No significant lymphadenopathy is noted. Oropharynx is clear. Moist mucous membranes. Neck has full range of motion without eliciting any pain. EYES: The sclera were anicteric and conjunctiva were pink and moist. Extraocular movements were intact and pupils were equal round and reactive to light. Eyelids were unremarkable. PULMONARY: Unlabored respirations. Good breath sounds bilaterally. No audible rales rhonchi or wheezing was noted. CARDIOVASCULAR: Patient has an irregular heartbeat at around 100 beats a minute ABDOMEN: Soft and nontender with normal bowel sounds. SKIN: Skin is clear with no lesions or rashes and otherwise unremarkable. NEUROLOGIC: Patient is alert and oriented x3. Cranial nerves II through XII are grossly intact. Motor and sensory are also intact. Normal speech, volume and content. Symmetrical smile. Patient has 2+ edema of his lower legs bilaterally. Patient has chronic wounds that do not appear infected. MUSCULOSKELETAL: Normal extremities with adequate strength and full range of motion. LYMPHATICS: No significant lymphadenopathy is noted PSYCHIATRIC: Normal psychiatric evaluation. Course Vital Signs 01/16/24 01/16/24 01/16/24 09:05 10:08 11:32 Temperature 97.3 F L Pulse Rate 97 84 83 Respiratory 18 16 18 Rate Blood Pressure 107/57 90/59 100/60 O2 Sat by Pulse 93 L 94 L 100 Oximetry Medical Decision Making - Medical Decision Making EKG is interpreted by myself. EKG shows A-fib at a rate of 89 bpm QRS is 200 QT interval is 503 QTc is 550. Patient's EKG shows a left bundle branch block p atient has an occasional PVC as well Was pt. sent in by a medical professional or institution (BOBY Garcia, [employer]ING [employer]OL OPERATOR, urgent care, hospital, or longterm...) When possible be specific @ -No Did you speak to anyone other than the patient for history (EMS, parent, family, police, friend...)? What history was obtained from this source @ -No Did you review nursing and triage notes (agree or disagree)? Why? @ -I reviewed and agree with nursing and triage notes Were old charts reviewed (outside hosp., previous admission, EMS record, old EKG, old radiological studies, urgent care reports/EKG's, longterm records)? Report findings @ -No old charts were reviewed Differential Diagnosis? @ -Differential Weakness: Hypoglycemia, shock, sepsis, hyponatremia, anemia, infection, [place], ETOH, adverse medicine reaction, overdose, stroke, this is not meant to be an all-inclusive list. EKG interpreted by me (3pts min.). @ -As above X-rays interpreted by me (1pt min.). @ -No CT interpreted by me (1pt min.). @ -CT abdomen pelvis shows no acute abnormality U/S interpreted by me (1pt. min.). @ -None done What testing was considered but not performed or refused? (CT, X-rays, U/S, labs)? Why? @ -None What meds were considered but not given or refused? Why? @ -None Did you discuss the management of the patient with other professionals (professionals i.e. , PA, [employer]ING TOOL OPERATOR, lab, RT, psych nurse, social insurance administrator, terminal gauger, teacher, chief quality officer, telehealth case manager)? Give summary @ -[facility] admit the patient admit the patient I wrote admitting orders Was smoking cessation discussed for >3mins.? @ -No Was critical care preformed (if so, how long)? @ -No Were there social determinants of health that impacted care today? How? (Homelessness, low income, unemployed, alcoholism, drug addiction, transportation, low edu. Level, literacy, decrease access to med. care, usp, r ehab)? @ -No Was there de-escalation of care discussed even if they declined (Discuss DNR or withdrawal of care, Hospice)? DNR status @ -No What co-morbidities impacted this encounter? (DM, HTN, Smoking, COPD, CAD, Cancer, CVA, ARF, Chemo, Hep., AIDS, mental health diagnosis, sleep apnea, morbid obesity)? @ -None Was patient admitted / discharged? Hospital course, mention meds given and route, prescriptions, significant lab abnormalities, going to OR and other pertinent info. @ -Patient has hyponatremia and was given some fluids in the emergency department admit the [facility] Undiagnosed new problem with uncertain prognosis? @ -No Drug Therapy requiring intensive monitoring for toxicity (Heparin, Nitro, Insulin, Cardizem)? @ -No Were any procedures done? @ -No Diagnosis/symptom? @ -Hyponatremia Acute, or Chronic, or Acute on Chronic? @ -Acute Uncomplicated (without systemic symptoms) or Complicated (systemic symptoms)? @ -Complicated Side effects of treatment? @ -No Exacerbation, Progression, or Severe Exacerbation? @ -No Poses a threat to life or bodily function? How? (Chest pain, [place], [place], pneumonia, PE, COPD, DKA, ARF, appy, cholecystitis, CVA, Diverticulitis, Homicidal, Suicidal, threat to staff... and all critical care pts) @ -Yes this can lead to severe weakness and mental status changes - Lab Data Result diagrams: 01/16/24 09:27 01/16/24 09:27 Lab Results 01/16/24 01/16/24 01/16/24 Range/Units 09:27 09:27 09:27 WBC 8.7 (3.8-10.6) k/uL RBC 4.03 L (4.30-5.90) m/uL Hgb 13.1 (13.0-17.5) gm/dL Hct 38.3 L (39.0-53.0) % MCV 95.0 (80.0-100.0) fL MCH 32.5 (25.0-35.0) pg MCHC 34.2 (31.0-37.0) g/dL RDW 13.1 (11.5-15.5) % Plt Count 182 (150-450) k/uL MPV 8.3 Neutrophils % 83 % Lymphocytes % 10 % Monocytes % 5 % Eosinophils % 0 % Basophils % 0 % Neutrophils # 7.2 (1.3-7.7) k/uL Lymphocytes # 0.9 L (1.0-4.8) k/uL Monocytes # 0.4 (0-1.0) k/uL Eosinophils # 0.0 (0-0.7) k/uL Basophils # 0.0 (0-0.2) k/uL PT 12.1 (10.0-12.5) sec INR 1.1 (<1.2) APTT 30.9 H (22.0-30.0) sec Sodium 114 L* (137-145) mmol/L Potassium 3.7 (3.5-5.1) mmol/L Chloride 74 L* (98-107) mmol/L Carbon Dioxide 31 H (22-30) mmol/L Anion Gap 9 mmol/L BUN 104 H* (9-20) mg/dL Creatinine 1.70 H (0.66-1.25) mg/dL Est GFR (CKD-EPI)AfAm 42 (>60 ml/min/1.73 sqM) Est GFR (CKD-EPI)NonAf 36 (>60 ml/min/1.73 sqM) Glucose 119 H (74-99) mg/dL Calcium 8.6 (8.4-10.2) mg/dL Magnesium 2.8 H (1.6-2.3) mg/dL Total Bilirubin 1.0 (0.2-1.3) mg/dL AST 52 (17-59) U/L ALT 26 (4-49) U/L Alkaline Phosphatase 74 (38-126) U/L Troponin I (0.000-0.034) ng/mL NT-Pro-B Natriuret Pep 80647 pg/mL Total Protein 6.3 (6.3-8.2) g/dL Albumin 3.7 (3.5-5.0) g/dL 01/16/24 Range/Units 09:27 WBC (3.8-10.6) k/uL RBC (4.30-5.90) m/uL Hgb (13.0-17.5) gm/dL Hct (39.0-53.0) % MCV (80.0-100.0) fL MCH (25.0-35.0) pg MCHC (31.0-37.0) g/dL RDW (11.5-15.5) % Plt Count (150-450) k/uL MPV Neutrophils % % Lymphocytes % % Monocytes % % Eosinophils % % Basophils % % Neutrophils # (1.3-7.7) k/uL Lymphocytes # (1.0-4.8) k/uL Monocytes # (0-1.0) k/uL Eosinophils # (0-0.7) k/uL Basophils # (0-0.2) k/uL PT (10.0-12.5) sec INR (<1.2) APTT (22.0-30.0) sec Sodium (137-145) mmol/L Potassium (3.5-5.1) mmol/L Chloride (98-107) mmol/L Carbon Dioxide (22-30) mmol/L Anion Gap mmol/L BUN (9-20) mg/dL Creatinine (0.66-1.25) mg/dL Est GFR (CKD-EPI)AfAm (>60 ml/min/1.73 sqM) Est GFR (CKD-EPI)NonAf (>60 ml/min/1.73 sqM) Glucose (74-99) mg/dL Calcium (8.4-10.2) mg/dL Magnesium (1.6-2.3) mg/dL Total Bilirubin (0.2-1.3) mg/dL AST (17-59) U/L ALT (4-49) U/L Alkaline Phosphatase (38-126) U/L Troponin I <0.012 (0.000-0.034) ng/mL NT-Pro-B Natriuret Pep pg/mL Total Protein (6.3-8.2) g/dL Albumin (3.5-5.0) g/dL Critical Care Time Critical Care Time: Yes Total Critical Care Time: 35 Disposition Clinical Impression: Hyponatremia, Elevated brain natriuretic peptide (BNP) level Disposition: ADMITTED IP TO THIS HOSP Referrals: Nehemiah Mosqueda DO [Primary Care Provider] - 1-2 days Time of Disposition: 13:38
[2024-01-16 09:46] LABS: Basophils % (A) 0 %; Eosinophils % (A) 0 %; HCT 38.3 % (39.0-53.0); HGB 13.1 gm/dL (13.0-17.5); Lymphocytes # (A) 0.9 k/uL (1.0-4.8); Lymphocytes % (A) 10 %; MCH 32.5 pg (25.0-35.0); MCHC 34.2 g/dL (31.0-37.0); Mean Platelet Volume 8.3; Monocytes # (A) 0.4 k/uL (0-1.0); Monocytes % (A) 5 %; Neutrophils # (A) 7.2 k/uL (1.3-7.7); Neutrophils % (A) 83 %; Platelet Count 182 k/uL (150-450); RBC 4.03 m/uL (4.30-5.90); RDW 13.1 % (11.5-15.5); WBC 8.7 k/uL (3.8-10.6)
[2024-01-16 09:52] LABS: INR 1.1 (<1.2); Partial Thromboplastin Time 30.9 sec (22.0-30.0); Prothrombin Time 12.1 sec (10.0-12.5)
--- NOTE | 2024-01-16 10:02 | XR ---
EXAMINATION TYPE: XR chest 2V DATE OF EXAM: 01/16/2024 COMPARISON: 12/19/2023 INDICATION: Chest pain short of breath TECHNIQUE: Frontal and lateral views of the chest are obtained. FINDINGS: The heart size is enlarged. The pulmonary vasculature is normal. Some minimal infiltrate may lie along the left diaphragm. Correlate for subsegmental atelectasis. Jay gs otherwise appear clear. No suspicious focal consolidation evident.. IMPRESSION: 1. Mild subsegmental atelectasis lateral left diaphragm. 2. Cardiomegaly
[2024-01-16 10:16] LABS: ALT 26 U/L (4-49); AST 52 U/L (17-59); African American GFR (CKD) 42 (>60 ml/min/1.73 sqM); Albumin 3.7 g/dL (3.5-5.0); Alkaline Phosphatase 74 U/L (38-126); Anion Gap 9 mmol/L; Calcium 8.6 mg/dL (8.4-10.2); Carbon Dioxide 31 mmol/L (22-30); Glucose 119 mg/dL (74-99); Magnesium 2.8 mg/dL (1.6-2.3); Non-African American GFR(CKD) 36 (>60 ml/min/1.73 sqM); Potassium 3.7 mmol/L (3.5-5.1); Total Protein 6.3 g/dL (6.3-8.2)
[2024-01-16 10:20] LABS: Blood Urea Nitrogen 104 mg/dL (9-20); Chloride 74 mmol/L (98-107); Sodium 114 mmol/L (137-145)
[2024-01-16 10:21] LABS: NT-Pro-B-Type Natriuretic Pept 21800 pg/mL
[2024-01-16] MEDS: SODIUM CHLORIDE 0.9% 1,000 ML IV ONE (14:25)
[2024-01-16] MEDS: POTASSIUM CHLORIDE ER 10 MEQ TAB.ER.PRT PO SCH (14:25)
[2024-01-16] MEDS: METOPROLOL TARTRATE 50 MG TAB PO SCH ×2 (14:26→17:50)
[2024-01-16] MEDS: BUMETANIDE 1 MG TAB PO SCH (14:31)
[2024-01-16] MEDS: ACETAMINOPHEN TAB 325 MG TAB PO PRN (16:28)
[2024-01-16 17:42] LABS: African American GFR (CKD) 34 (>60 ml/min/1.73 sqM); Anion Gap 10 mmol/L; Calcium 8.4 mg/dL (8.4-10.2); Carbon Dioxide 29 mmol/L (22-30); Chloride 76 mmol/L (98-107); Glucose 133 mg/dL (74-99); Non-African American GFR(CKD) 30 (>60 ml/min/1.73 sqM); Potassium 3.7 mmol/L (3.5-5.1)
[2024-01-16 17:45] LABS: Blood Urea Nitrogen 102 mg/dL (9-20); Sodium 115 mmol/L (137-145)
[2024-01-16] MEDS: MIDODRINE 5 MG TAB PO SCH (17:50)
[2024-01-16] MEDS: TAMSULOSIN 0.4 MG CAP.ER.24H PO SCH (17:52)
[2024-01-16] MEDS: APIXABAN 2.5 MG TABLET PO SCH (17:52)
[2024-01-16] MEDS: MELATONIN 3 MG TABLET PO SCH (20:36)
[2024-01-16] MEDS: FUROSEMIDE 10 MG/ML 10 ML VIAL IV ONE (20:36)
[2024-01-16] MEDS: HYDROcodone/APAP 5-325MG 1 EACH TAB PO PRN (21:21)
--- NOTE | 2024-01-16 23:11 | P.HPIM ---
History of Present Illness H&P Date: 01/16/24 Chief Complaint: Generalized weakness Patient is a 88-year-old male with a past medical history of atrial flutter/fibrillation on anticoagulation Eliquis with history of ablation, chronic CHF, hypertension, osteoarthritis, BPH, obstructive sleep apnea not on CPAP and prior history of smoking presents to ER due to complaints of generalized weakness and shortness of breath. Patient states that he was started on Bumex and metolazone due to his worsening leg swelling. Patient was told by his primary care physician about 6 days ago that he has hypokalemia and should go to hospital. Patient was given potassium supplementation which he has been taking but he woke up this morning and felt very weak and thought he would come to ER. Patient was having leg swelling and shortness of breath at baseline. Also complaining of mild chest discomfort. Denies any dizziness or lightheadedness. No nausea vomiting abdominal pain or diarrhea. Chest x-ray showed mild subsegmental atelectasis lateral left hemidiaphragm. Cardiomegaly. EKG showed atrial fibrillation with aberrant conduction or ventricular premature complexes. Heart rate 89 Laboratory data showed WBC 8.7 hemoglobin 13.1 and platelets 182 Sodium 114 potassium 3.7 chloride 74 bicarb is 31 BUN 104 and creatinine 1.7 and blood sugar 119 and magnesium 2.8 proBNP 21,800 and troponin 0.012 Review of Systems Constitutional: Patient denies any fever or chills . Generalized weakness and fatigue.. Abdomen: Patient denied nausea vomiting and diarrhea and abdominal pain. Cardiovascular: Patient does complain of chest discomfort and short of breath no palpitations. Leg swelling. Respiratory: patient denied any cough or sputum production. Positive for shortness of breath Neurologic: Patient denied any numbness or tingling. no headache. Musculoskeletal: Patient denies any complaints of joint swelling or deformity. Skin: Negative Psychiatric: Negative Endocrine: No heat or cold intolerance. No recent weight gain. Genitourinary: No dysuria or hematuria. All other 14 point ROS negative except the above Past Medical History Past Medical History: Atrial Fibrillation, Atrial Flutter, Asthma, Heart Failure, GERD/Reflux, Hypertension, Osteoarthritis (OA), Pneumonia, Prostate Disorder, Skin Disorder, Sleep Apnea/CPAP/BIPAP Additional Past Medical History / Comment(s): SEE HISTORY DONE BY DR. PACHECO." "spot" on R lung/stable. KATHLEEN/no longer needs to use device. reactive airway, bronchitis, nephrolithiasis/pt passed stones on his own, BPH, gallstones, psoriasis History of Any Multi-Drug Resistant Organisms: MRSA Date of last positivie culture/infection: 12/01/19 MDRO Source:: foot Past Surgical History: Cardiac Ablation, Joint Replacement, Orthopedic Surgery Additional Past Surgical History / Comment(s): Cardiac ablations, cardioversions, L ankle ORIF, bilateral total knee arthroplasty, bilateral total hip arthroplasty, R shoulder surgery to remove "chip", L hand 3 finger re attachement/index finger amputation, bronchoscopy, colonoscopy, R plastic ureter insertion. Past Anesthesia/Blood Transfusion Reactions: No Reported Reaction Past Psychological History: No Psychological Hx Reported Smoking Status: Former smoker Past Alcohol Use History: None Reported Past Drug Use History: None Reported - Past Family History Mother Family Medical History: Cancer Additional Family Medical History / Comment(s): Mother at age 82 of lung cancer. Father Family Medical History: Cancer Additional Family Medical History / Comment(s): Father at age 80 of prostrate cancer. Brother(s) Family Medical History: Cancer Additional Family Medical History / Comment(s): Patient has a total of 6 brothers. One brother with history of atrial fibrillation and kidney cancer, second brother with valvular heart disease, third brother with Parkinson's. Daughter(s) Additional Family Medical History / Comment(s): . Medications and Allergies Home Medications Medication Instructions Recorded Confirmed Type Tamsulosin HCl [Flomax] 0.4 mg PO BID@0700,1800 07/12/14 01/16/24 History Multivit-Min/FA/Lycopen/Lutein 1 tab PO DAILY 04/27/21 01/16/24 History [Centrum Silver Tablet] Cholecalciferol (Vitamin D3) 125 mcg PO DAILY 08/13/22 01/16/24 History [Vitamin D3 (125 MCG = 5,000 IU)] Midodrine [ProAmatine] 5 mg PO TID@0700,1300,1800 08/13/22 01/16/24 History Apixaban [Eliquis] 2.5 mg PO BID@0700,1800 11/02/23 01/16/24 History Levothyroxine Sodium [Synthroid] 88 mcg PO DAILY@0500 11/02/23 01/16/24 History Melatonin 6 mg PO HS 11/02/23 01/16/24 History Nitroglycerin Sl Tabs [Nitrostat] 0.4 mg SL Q5M PRN 11/02/23 01/16/24 History Azithromycin [Zithromax Z Pack] See Taper PO DAILY 01/16/24 01/16/24 History Bumetanide [BUMEX] 2 mg PO DAILY 01/16/24 01/16/24 History Bumetanide [Bumex] 1 mg PO DAILY@1400 01/16/24 01/16/24 History Empagliflozin [Jardiance] 10 mg PO DAILY 01/16/24 01/16/24 History Metoprolol Tartrate [Lopressor] 50 mg PO DAILY@1400 01/16/24 01/16/24 History Metoprolol Tartrate [Lopressor] 75 mg PO BID@0700,1800 01/16/24 01/16/24 History Ondansetron Odt [Zofran Odt] 4 mg PO Q6H PRN 01/16/24 01/16/24 History Potassium Chloride [Klor-Con 10 ER] See Taper PO DIRECTED 01/16/24 01/16/24 History Sennosides/Docusate Sodium [Alexa 1 tab PO DAILY 01/16/24 01/16/24 History Colace] metOLazone 2.5 mg PO MO 01/16/24 01/16/24 History Allergies Allergy/AdvReac Type Severity Reaction Status Date / Time isosorbide mononitrate Allergy Unknown Verified 01/16/24 12:22 [From Imdur] Penicillins Allergy Rash/Hives Verified 01/16/24 12:22 albuterol [From Ventolin HFA] AdvReac Rapid Verified 01/16/24 12:22 Heart Rate amiodarone HCl AdvReac LUNGS/EYE Verified 01/16/24 12:22 [From Cordarone] PROBLEMS codeine AdvReac Nausea & Verified 01/16/24 12:22 Vomiting enalapril maleate AdvReac Cough Verified 01/16/24 12:22 [From Vasotec] enalaprilat dihydrate AdvReac Cough Verified 01/16/24 12:22 [From Vasotec] hydromorphone HCl AdvReac Nausea & Verified 01/16/24 12:22 [From Dilaudid] Vomiting loratadine [From Claritin] AdvReac Rapid Verified 01/16/24 12:22 Heart Rate morphine AdvReac Nausea & Verified 01/16/24 12:22 Vomiting procainamide HCl AdvReac "FLUID ON Verified 01/16/24 12:22 [From Pronestyl] HEART" tetanus toxoid, adsorbed AdvReac "JOINT Verified 01/16/24 12:22 STIFFNESS" Physical Exam Vitals: Vital Signs Temp Pulse Resp BP Pulse Ox 01/16/24 14:25 90 18 106/82 95 01/16/24 11:32 83 18 100/60 100 01/16/24 10:08 84 16 90/59 94 L 01/16/24 09:05 97.3 F L 97 18 107/57 93 L Intake and Output 01/16/24 01/16/24 01/16/24 06:59 14:59 22:59 Other: Weight 95.254 kg PHYSICAL EXAMINATION: Patient is lying in the bed,, no acute distress, awake alert and oriented.. HEENT: Normocephalic. Neck is supple. Pupils reactive. Nostrils clear. Oral cavity is moist. Neck reveals no JVD, carotid bruits, or thyromegaly. CHEST EXAMINATION: Trachea is central. Symmetrical expansion. Bibasilar diminished sounds. Lung del angel clear to auscultation and percussion. CARDIAC: Normal S1, S2 with no gallops. Irregular rhythm. Systolic murmur. ABDOMEN: Soft. Bowel sounds normal. No organomegaly. No abdominal bruits. Extremities: Bilateral lower extremity trace edema. No clubbing or cyanosis Neurologically awake, alert, oriented x 2-3, with well-coordinated movements. No gross focal deficits noted Skin: No rash. Sacral stage II ulcer s. Psychiatric: Coperative. Nonsuicidal Musculoskeletal: No joint swelling or deformity. Normal range of motion. Results CBC & Chem 7: 01/17/24 04:39 01/17/24 17:56 Labs: Abnormal Lab Results - Last 24 Hours (Table) 01/16/24 01/16/24 01/16/24 Range/Units 09:27 09:27 09:27 RBC 4.03 L (4.30-5.90) m/uL Hct 38.3 L (39.0-53.0) % Lymphocytes # 0.9 L (1.0-4.8) k/uL APTT 30.9 H (22.0-30.0) sec Sodium 114 L* (137-145) mmol/L Chloride 74 L* (98-107) mmol/L Carbon Dioxide 31 H (22-30) mmol/L BUN 104 H* (9-20) mg/dL Creatinine 1.70 H (0.66-1.25) mg/dL Glucose 119 H (74-99) mg/dL Magnesium 2.8 H (1.6-2.3) mg/dL Thrombosis Risk Factor Assmnt - DVT/VTE Prophylaxis DVT/VTE Prophylaxis: Pharmacologic Prophylaxis ordered Assessment and Plan Assessment: Generalized weakness Severe hyponatremia with sodium level 114 on admission. Likely due to diuretic use Chest pain rule out ACS Bilateral lower extremity wounds and sacral decub ulcers stage II Chronic CHF with reduced ejection fraction Nonischemic cardiomyopathy ejection fraction 20 to 25% Atrial fibrillation chronic on anticoagulation with Eliquis. Prior history of fibrillation. Hypertension BPH Obstructive sleep apnea on CPAP GERD Prior history of smoking DVT prophylaxis. Patient is already on Eliquis Plan: Patient will be continued on IV hydration with normal saline. Metolazone and Bumex is on hold. Follow-up repeat sodium level every 4 hourly. Nephrology was consulted for evaluation. Continue to monitor respiratory status closely due to underlying CHF. Cardiology and wound care will be consulted. Prognosis guarded with multimedical problems and comorbid conditions. Time with Patient: Greater than 30
[2024-01-17 05:40] LABS: African American GFR (CKD) 36 (>60 ml/min/1.73 sqM); Anion Gap 7 mmol/L; Blood Urea Nitrogen 100 mg/dL (9-20); Calcium 8.6 mg/dL (8.4-10.2); Carbon Dioxide 34 mmol/L (22-30); Chloride 79 mmol/L (98-107); Glucose 113 mg/dL (74-99); Non-African American GFR(CKD) 31 (>60 ml/min/1.73 sqM); Potassium 3.5 mmol/L (3.5-5.1); Sodium 120 mmol/L (137-145)
[2024-01-17 05:44] LABS: Basophils % (A) 0 %; Eosinophils % (A) 0 %; HCT 38.4 % (39.0-53.0); HGB 12.7 gm/dL (13.0-17.5); Lymphocytes # (A) 0.8 k/uL (1.0-4.8); Lymphocytes % (A) 8 %; MCH 31.9 pg (25.0-35.0); MCHC 33.2 g/dL (31.0-37.0); MCV 96.3 fL (80.0-100.0); Mean Platelet Volume 8.5; Monocytes # (A) 0.5 k/uL (0-1.0); Monocytes % (A) 6 %; Neutrophils # (A) 8.1 k/uL (1.3-7.7); Neutrophils % (A) 85 %; Platelet Count 167 k/uL (150-450); RBC 3.98 m/uL (4.30-5.90); RDW 13.3 % (11.5-15.5); WBC 9.5 k/uL (3.8-10.6)
[2024-01-17] MEDS: LEVOTHYROXINE 88 MCG TAB PO SCH (05:59)
[2024-01-17] MEDS: SENNOSIDES-DOCUSATE SODIUM 1 EACH TAB PO SCH (08:29)
[2024-01-17] MEDS: DAPAGLIFLOZIN PROPANEDIOL 5 MG TABLET PO SCH (08:29)
[2024-01-17] MEDS ORDERED: BUMETANIDE 1 MG TAB PO SCH (09:00)
--- NOTE | 2024-01-17 10:31 | P.CONS ---
History of Present Illness - Reason for Consult Consult date: 01/17/24 wound care - History of Present Illness This is an [age]-year-old patient being seen for a stage II pressure ulcer to the sacrum and multiple open ulcerations to the right and left lower extremity. Patient has multiple ulcerations to the left lower extremity total size approximately 6 x 4 x 0.1 cm with slough and nonviable tissue present and minimal granulation. The right lower extremity has a superior ulceration measuring 1.2 x 0.4 x 0.2 cm inferior ulceration measuring 1.5 x 1.5 x 0.2 cm with eschar slough and nonviable tissue present minimal to no granulation noted to the wound bed. No tunneling or undermining noted. Patient's past medical history significant for atrial fibrillation, heart failure, GERD, hypertension, BPH and sleep apnea. Review Of Systems: Constitutional: No fever, no chills, no night sweats. No weight change. No weakness, fatigue or lethargy. No daytime sleepiness. Integumentary:reports wounds, no lesions. No rash or pruritus. No unusual bruising. No change in hair or nails. Physical exam: General Appearance: Alert, cooperative, no distress, appears stated age. Skin: See HPI all other Skin color, texture, tugor normal, no rashes or lesions. Neurologic: Alert oriented x3 Assessment: 1. Stage II pressure ulcer sacrum 2. Nonhealing ulceration with fat layer exposed left lower extremity 2. Nonhealing ulceration with fat layer exposed right lower extremity Plan: 1.Sacrum: Apply honey gel and bordered foam. Bilateral lower extremities: Apply honey gel, dry gauze rolled gauze and secure with paper tape. Thank you for the consultation any questions please contact the wound care center DNP note has been reviewed and discussed with Dr. Luevano and the impression an d plan of care has been directed as dictated. Past Medical History Past Medical History: Atrial Fibrillation, Atrial Flutter, Asthma, Heart Failure, GERD/Reflux, Hypertension, Osteoarthritis (OA), Pneumonia, Prostate Disorder, Skin Disorder, Sleep Apnea/CPAP/BIPAP Additional Past Medical History / Comment(s): SEE HISTORY DONE BY DR. PACHECO." "spot" on R lung/stable. KATHLEEN/no longer needs to use device. reactive airway, bronchitis, nephrolithiasis/pt passed stones on his own, BPH, gallstones, psoriasis History of Any Multi-Drug Resistant Organisms: MRSA Year Discovered:: 12/01/19 MDRO Source:: foot Past Surgical History: Cardiac Ablation, Joint Replacement, Orthopedic Surgery Additional Past Surgical History / Comment(s): Cardiac ablations, cardioversions, L ankle ORIF, bilateral total knee arthroplasty, bilateral total hip arthroplasty, R shoulder surgery to remove "chip", L hand 3 finger reattac hement/index finger amputation, bronchoscopy, colonoscopy, R plastic ureter insertion. Past Anesthesia/Blood Transfusion Reactions: No Reported Reaction Past Psychological History: No Psychological Hx Reported Smoking Status: Former smoker Past Alcohol Use History: None Reported Past Drug Use History: None Reported - Past Family History Mother Family Medical History: Cancer Additional Family Medical History / Comment(s): Mother at age 82 of lung cancer. Father Family Medical History: Cancer Additional Family Medical History / Comment(s): Father at age 80 of prostrate cancer. Brother(s) Family Medical History: Cancer Additional Family Medical History / Comment(s): Patient has a total of 6 brothers. One brother with history of atrial fibrillation and kidney cancer, second brother with valvular heart disease, third brother with Parkinson's. Daughter(s) Additional Family Medical History / Comment(s): . Medications and Allergies Home Medications Medication Instructions Recorded Confirmed Type Tamsulosin HCl [Flomax] 0.4 mg PO BID@0700,1800 07/12/14 01/16/24 History Multivit-Min/FA/Lycopen/Lutein 1 tab PO DAILY 04/27/21 01/16/24 History [Centrum Silver Tablet] Cholecalciferol (Vitamin D3) 125 mcg PO DAILY 08/13/22 01/16/24 History [Vitamin D3 (125 MCG = 5,000 IU)] Midodrine [ProAmatine] 5 mg PO TID@0700,1300,1800 08/13/22 01/16/24 History Apixaban [Eliquis] 2.5 mg PO BID@0700,1800 11/02/23 01/16/24 History Levothyroxine Sodium [Synthroid] 88 mcg PO DAILY@0500 11/02/23 01/16/24 History Melatonin 6 mg PO HS 11/02/23 01/16/24 History Nitroglycerin Sl Tabs [Nitrostat] 0.4 mg SL Q5M PRN 11/02/23 01/16/24 History Azithromycin [Zithromax Z Pack] See Taper PO DAILY 01/16/24 01/16/24 History Bumetanide [BUMEX] 2 mg PO DAILY 01/16/24 01/16/24 History Bumetanide [Bumex] 1 mg PO DAILY@1400 01/16/24 01/16/24 History Empagliflozin [Jardiance] 10 mg PO DAILY 01/16/24 01/16/24 History Metoprolol Tartrate [Lopressor] 50 mg PO DAILY@1400 01/16/24 01/16/24 History Metoprolol Tartrate [Lopressor] 75 mg PO BID@0700,1800 01/16/24 01/16/24 History Ondansetron Odt [Zofran Odt] 4 mg PO Q6H PRN 01/16/24 01/16/24 History Potassium Chloride [Klor-Con 10 ER] See Taper PO DIRECTED 01/16/24 01/16/24 History Sennosides/Docusate Sodium [Alexa 1 tab PO DAILY 01/16/24 01/16/24 History Colace] metOLazone 2.5 mg PO MO 01/16/24 01/16/24 History Allergies Allergy/AdvReac Type Severity Reaction Status Date / Time isosorbide mononitrate Allergy Unknown Verified 01/16/24 12:22 [From Imdur] Penicillins Allergy Rash/Hives Verified 01/16/24 12:22 albuterol [From Ventolin HFA] AdvReac Rapid Verified 01/16/24 12:22 Heart Rate amiodarone HCl AdvReac LUNGS/EYE Verified 01/16/24 12:22 [From Cordarone] PROBLEMS codeine AdvReac Nausea & Verified 01/16/24 12:22 Vomiting enalapril maleate AdvReac Cough Verified 01/16/24 12:22 [From Vasotec] enalaprilat dihydrate AdvReac Cough Verified 01/16/24 12:22 [From Vasotec] hydromorphone HCl AdvReac Nausea & Verified 01/16/24 12:22 [From Dilaudid] Vomiting loratadine [From Claritin] AdvReac Rapid Verified 01/16/24 12:22 Heart Rate morphine AdvReac Nausea & Verified 01/16/24 12:22 Vomiting procainamide HCl AdvReac "FLUID ON Verified 01/16/24 12:22 [From Pronestyl] HEART" tetanus toxoid, adsorbed AdvReac "JOINT Verified 01/16/24 12:22 STIFFNESS" Physical Exam Vitals: Vital Signs Temp Pulse Pulse Resp BP BP Pulse Ox 01/17/24 08:23 97.7 F 94 17 93/62 96 01/17/24 04:39 97.5 F L 94 17 105/61 97 01/16/24 23:41 97.7 F 90 17 115/70 95 01/16/24 21:28 98.4 F 100 92 17 100/59 113/69 97 01/16/24 20:03 94 20 109/59 95 01/16/24 18:56 92 18 102/62 96 01/16/24 18:48 92 18 102/62 96 01/16/24 17:48 90 18 101/77 98 01/16/24 14:25 90 18 106/82 95 01/16/24 11:32 83 18 100/60 100 Intake and Output 01/16/24 01/17/24 01/17/24 22:59 06:59 14:59 Intake Total 475 10 190 Output Total 400 1325 400 Balance 75 -1315 -210 Intake: IV 10 10 Invasive Line 1 10 10 Oral 475 180 Output: Urine 400 1325 400 Other: Voiding Method External Catheter External Catheter Weight 95.254 kg 100.4 kg Results CBC & Chem 7: 01/17/24 04:39 01/17/24 09:41 Labs: Abnormal Lab Results - Last 24 Hours (Table) 01/16/24 01/16/24 01/16/24 Range/Units 17:18 20:06 20:06 RBC (4.30-5.90) m/uL Hgb (13.0-17.5) gm/dL Hct (39.0-53.0) % Neutrophils # (1.3-7.7) k/uL Lymphocytes # (1.0-4.8) k/uL Sodium 115 L* (137-145) mmol/L Chloride 76 L (98-107) mmol/L Carbon Dioxide (22-30) mmol/L BUN 102 H* (9-20) mg/dL Creatinine 1.98 H (0.66-1.25) mg/dL Glucose 133 H (74-99) mg/dL Urine Osmolality 328 L (400-1100) mOsm/kg Ur Random Sodium <20 L (40-220) mmol/L 01/16/24 01/17/24 01/17/24 Range/Units 21:31 04:39 04:39 RBC 3.98 L (4.30-5.90) m/uL Hgb 12.7 L (13.0-17.5) gm/dL Hct 38.4 L (39.0-53.0) % Neutrophils # 8.1 H (1.3-7.7) k/uL Lymphocytes # 0.8 L (1.0-4.8) k/uL Sodium 117 L* 120 L (137-145) mmol/L Chloride 79 L (98-107) mmol/L Carbon Dioxide 34 H (22-30) mmol/L BUN 100 H (9-20) mg/dL Creatinine 1.90 H (0.66-1.25) mg/dL Glucose 113 H (74-99) mg/dL Urine Osmolality (400-1100) mOsm/kg Ur Random Sodium (40-220) mmol/L 01/17/24 Range/Units 09:41 RBC (4.30-5.90) m/uL Hgb (13.0-17.5) gm/dL Hct (39.0-53.0) % Neutrophils # (1.3-7.7) k/uL Lymphocytes # (1.0-4.8) k/uL Sodium 120 L (137-145) mmol/L Chloride (98-107) mmol/L Carbon Dioxide (22-30) mmol/L BUN (9-20) mg/dL Creatinine (0.66-1.25) mg/dL Glucose (74-99) mg/dL Urine Osmolality (400-1100) mOsm/kg Ur Random Sodium (40-220) mmol/L Assessment and Plan (1) Non-pressure ulcer of left lower extremity with fat layer exposed Current Visit: Yes Status: Acute Code(s): L97.922 - NON-PRS CHR ULC UNSP PRT OF L LOW LEG W FAT LAYER EXPOSED SNOMED Code(s): 47348329 (2) Non-pressure ulcer of right lower extremity with fat layer exposed Current Visit: Yes Status: Acute Code(s): L97.912 - NON-PRS CHR ULC UNSP PRT OF R LOW LEG W FAT LAYER EXPOSED SNOMED Code(s): 57349962 (3) Stage 2 skin ulcer of sacral region Current Visit: Yes Status: Acute Code(s): L98.429 - NON-PRESSURE CHRONIC ULCER OF BACK WITH UNSPECIFIED SEVERITY SNOMED Code(s): 31916104 (4) Chronic venous hypertension w/ulcer and inflammation involv both sides Current Visit: No Status: Acute Code(s): I87.333 - CHRONIC VENOUS HTN W ULCER AND INFLAM OF BILATERAL LOW EXTRM; L97.919 - NON-PRS CHRONIC ULC UNSP PRT OF R LOW LEG W UNSP SEVERITY; L97.929 - NON-PRS CHRONIC ULC UNSP PRT OF L LOW LEG W UNSP SEVERITY SNOMED Code(s): 255473681
--- NOTE | 2024-01-17 11:21 | P.NPCON ---
History of Present Illness - Reason for Consult hyponatremia - History of Present Illness patient is an 88-year-old malewith history of CHF, A. fib, hypertension and nephrolithiasis. Patient is admitted to the hospitaldue to abnormal labs done as outpatient.. Patient states that he felt very weak. He had some numbness and some tingling in the legs. Labs show sodium 1:15 potassium was 3.7, BUN 102 and creatinine 1.9. Patient has underlying history of chronic kidney disease with baseline creatinine 1.1-1.4 mg/dL and recent acute kidney injury in October 2023 with creatinine staying at about 1.7-1.6 mg/dL no urinary symptoms Maintained on Bumex and metolazone as outpatient. Patient has history of chronic lower extremity swelling which has recently improved. BP has been low with systolic blood pressure in the 90s. Patient is maintained on midodrine as outpatient. patient received normal saline on initial admission. He was also maintained on Bumex. Serum sodium improved from 115 on admission to 117 last night and it is 120 today. urine osmolality 328 and random urine sodium less than 20. Review of Systems as per HPI Past Medical History Past Medical History: Atrial Fibrillation, Atrial Flutter, Asthma, Heart Failure, GERD/Reflux, Hypertension, Osteoarthritis (OA), Pneumonia, Prostate Disorder, Skin Disorder, Sleep Apnea/CPAP/BIPAP Additional Past Medical History / Comment(s): SEE HISTORY DONE BY DR. PACHECO." "spot" on R lung/stable. KATHLEEN/no longer needs to use device. 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 Past Anesthesia/Blood Transfusion Reactions: No Reported Reaction Past Psychological History: No Psychological Hx Reported Smoking Status: Former smoker Past Alcohol Use History: None Reported Past Drug Use History: None Reported - Past Family History Mother Family Medical History: Cancer Additional Family Medical History / Comment(s): Mother at age 82 of lung cancer. Father Family Medical History: Cancer Additional Family Medical History / Comment(s): Father at age 80 of prostrate cancer. Brother(s) Family Medical History: Cancer Additional Family Medical History / Comment(s): Patient has a total of 6 brothers. One brother with history of atrial fibrillation and kidney cancer, second brother with valvular heart disease, third brother with Parkinson's. Daughter(s) Additional Family Medical History / Comment(s): . Medications and Allergies Home Medications Medication Instructions Recorded Confirmed Type Tamsulosin HCl [Flomax] 0.4 mg PO BID@0700,1800 07/12/14 01/16/24 History Multivit-Min/FA/Lycopen/Lutein 1 tab PO DAILY 04/27/21 01/16/24 History [Centrum Silver Tablet] Cholecalciferol (Vitamin D3) 125 mcg PO DAILY 08/13/22 01/16/24 History [Vitamin D3 (125 MCG = 5,000 IU)] Midodrine [ProAmatine] 5 mg PO TID@0700,1300,1800 08/13/22 01/16/24 History Apixaban [Eliquis] 2.5 mg PO BID@0700,1800 11/02/23 01/16/24 History Levothyroxine Sodium [Synthroid] 88 mcg PO DAILY@0500 11/02/23 01/16/24 History Melatonin 6 mg PO HS 11/02/23 01/16/24 History Nitroglycerin Sl Tabs [Nitrostat] 0.4 mg SL Q5M PRN 11/02/23 01/16/24 History Azithromycin [Zithromax Z Pack] See Taper PO DAILY 01/16/24 01/16/24 History Bumetanide [BUMEX] 2 mg PO DAILY 01/16/24 01/16/24 History Bumetanide [Bumex] 1 mg PO DAILY@1400 01/16/24 01/16/24 History Empagliflozin [Jardiance] 10 mg PO DAILY 01/16/24 01/16/24 History Metoprolol Tartrate [Lopressor] 50 mg PO DAILY@1400 01/16/24 01/16/24 History Metoprolol Tartrate [Lopressor] 75 mg PO BID@0700,1800 01/16/24 01/16/24 History Ondansetron Odt [Zofran Odt] 4 mg PO Q6H PRN 01/16/24 01/16/24 History Potassium Chloride [Klor-Con 10 ER] See Taper PO DIRECTED 01/16/24 01/16/24 History Sennosides/Docusate Sodium [Alexa 1 tab PO DAILY 01/16/24 01/16/24 History Colace] metOLazone 2.5 mg PO MO 01/16/24 01/16/24 History Allergies Allergy/AdvReac Type Severity Reaction Status Date / Time isosorbide mononitrate Allergy Unknown Verified 01/16/24 12:22 [From Imdur] Penicillins Allergy Rash/Hives Verified 01/16/24 12:22 albuterol [From Ventolin HFA] AdvReac Rapid Verified 01/16/24 12:22 Heart Rate amiodarone HCl AdvReac LUNGS/EYE Verified 01/16/24 12:22 [From Cordarone] PROBLEMS codeine AdvReac Nausea & Verified 01/16/24 12:22 Vomiting enalapril maleate AdvReac Cough Verified 01/16/24 12:22 [From Vasotec] enalaprilat dihydrate AdvReac Cough Verified 01/16/24 12:22 [From Vasotec] hydromorphone HCl AdvReac Nausea & Verified 01/16/24 12:22 [From Dilaudid] Vomiting loratadine [From Claritin] AdvReac Rapid Verified 01/16/24 12:22 Heart Rate morphine AdvReac Nausea & Verified 01/16/24 12:22 Vomiting procainamide HCl AdvReac "FLUID ON Verified 01/16/24 12:22 [From Pronestyl] HEART" tetanus toxoid, adsorbed AdvReac "JOINT Verified 01/16/24 12:22 STIFFNESS" Physical Exam Vitals: Vital Signs Temp Pulse Pulse Resp BP BP Pulse Ox 01/17/24 08:23 97.7 F 94 17 93/62 96 01/17/24 04:39 97.5 F L 94 17 105/61 97 01/16/24 23:41 97.7 F 90 17 115/70 95 01/16/24 21:28 98.4 F 100 92 17 100/59 113/69 97 01/16/24 20:03 94 20 109/59 95 01/16/24 18:56 92 18 102/62 96 01/16/24 18:48 92 18 102/62 96 01/16/24 17:48 90 18 101/77 98 01/16/24 14:25 90 18 106/82 95 01/16/24 11:32 83 18 100/60 100 Intake and Output 01/16/24 01/17/24 01/17/24 22:59 06:59 14:59 Intake Total 475 10 190 Output Total 400 1325 400 Balance 75 -1315 -210 Intake: IV 10 10 Invasive Line 1 10 10 Oral 475 180 Output: Urine 400 1325 400 Other: Voiding Method External Catheter External Catheter Weight 95.254 kg 100.4 kg patient is awake comfortable, no acute distress. Examination of the heart S1 and S2 Examination of the lungs bilateral breath sounds are heard Abdomen is soft nontender Examination of lower extremity shows chronic skin changes. No edema noted. Chronic ulcerations noted. [employer]OLOG[employer] IN[employer] exam grossly intact Results - Lab Results Most recent lab results Calcium 8.6 mg/dL (8.4-10.2) 01/17/24 04:39 Magnesium 2.8 mg/dL (1.6-2.3) H 01/16/24 09:27 01/17/24 04:39 01/17/24 09:41 Assessment and Plan Assessment: 1. Acute kidney injury, ATN associated with low blood pressure, also prerenal from recent diuresis.currently off of fluids and diuretics. Check UAan ultrasound of the kidneys. Serum creatinine has been elevated at 1.6-1.8 since October 2023. 2. Hyponatremia, hypovolemic. Resume normal saline. Diuretics currently on hold. 3. Bilateral lower extremity ulcers 4. Chronic A. fib maintained on a liquid and metoprolol Plan: resume saline Check post void residuals Check ultrasound of the kidneys Check UA Continue with midodrine Repeat sodium this afternoon. Thank you for the consultation. We will continue to follow the patient with you during his hospitalization.
--- NOTE | 2024-01-17 12:47 | P.CRDCN ---
History of Present Illness History of present illness: HISTORY OF PRESENT ILLNESS: This is a 88-year-old male with a past medical history significant for atrial fibrillation, congestive heart failure, hypertension, and valvular heart disease. Patient follows in the office with Dr. Pacheco. We have been asked to see the patient in consultation for elevated BNP. Patient examined at the bedside. Patient states he presented to the hospital with a chief complaint of chest pain. Patient states he has been having chest pain for weeks. He also reports associated shortness of breath. Patient was found to be hyponatremic upon admission to the hospital with a sodium level of 114. Repeat sodium this morning 120. DIAGNOSTICS: - EKG reveals atrial fibrillation with left bundle branch block. - Chest xray mild subsegmental atelectasis lateral left diaphragm. Cardiomegaly.. - Laboratory data: WBC 9.5. Hemoglobin 12.7. Platelet count 167. Sodium 120. Potassium 3.5. BUN 100. Creatinine 1.90. Magnesium 2.8. Troponin negative x 1. proBNP 21,800. - Current home cardiac medications include Eliquis 2.5 mg twice a day, Bumex 2 mg in the morning and 1 mg in the afternoon, Jardiance 10 mg daily, metoprolol tartrate 75 mg in the morning, 50 mg in the afternoon, and 75 mg in the evening, midodrine 5 mg 3 times a day, and metolazone 2.5 mg every Saturday. - Most recent echocardiogram obtained in December 2023 revealed ejection fraction 20 to 25% REVIEW OF SYSTEMS: At the time of my exam: CONSTITUTIONAL: Denies fever or chills. HEENT: Denies blurred vision, vision changes, or eye pain. Denies hemoptysis CARDIOVASCULAR: Denies chest pain. Denies orthopnea. Denies PND. Denies palpitations RESPIRATORY: Denies shortness of breath. GASTROINTESTINAL: Denies abdominal pain. Denies nausea or vomiting. HEMATOLOGIC: Denies bleeding disorders. GENITOURINARY: Denies any blood in urine. SKIN: Denies pruitis. Denies rash. PHYSICAL EXAM: VITAL SIGNS: Reviewed. GENERAL: Well-developed in no acute distress. HEENT: Head is normocephalic. Pupils are equal, round. Sclerae anicteric. Mucous membranes of the mouth are moist. Neck supple. No JVD or thyromegaly LUNGS: Respirations even and unlabored. Lungs essentially clear to auscultation bilaterally. HEART: Irregular rate and rhythm. S1 and S2 heard. Systolic murmur noted ABDOMEN: Soft. Nondistended. Nontender. EXTREMITIES: Normal range of motion. No clubbing or cyanosis. Peripheral pulses intact. Patient with bilateral lower extremity wounds with gauze dressings noted NEUROLOGIC: Awake and alert. Oriented x 3. ASSESSMENT: Chest pain, troponin negative x 1, no evidence of acute coronary syndrome Hyponatremia Bilateral lower extremity wounds Chronic heart failure with reduced EF, not fluid overloaded on examination Chronic kidney disease Nonischemic cardiomyopathy, ejection fraction 2024% Longstanding persistent atrial fibrillation with controlled ventricular rate Valvular heart disease Hypertension PLAN: No need to repeat echocardiogram as this was performed in December 2023 Trend troponins Resume home cardiac medications Nephrology following for hyponatremia. Currently receiving IV fluids Further recommendations pending patient course Nurse practitioner note has been reviewed by physician. Signing provider agrees with the documented findings, assessment, and plan of care documented by SUPERVISOR [employer]AC[employer] as a scribe. Past Medical History Past Medical History: Atrial Fibrillation, Atrial Flutter, Asthma, Heart Failure, GERD/Reflux, Hypertension, Osteoarthritis (OA), Pneumonia, Prostate Disorder, Skin Disorder, Sleep Apnea/CPAP/BIPAP Additional Past Medical History / Comment(s): SEE HISTORY DONE BY DR. PACHECO." "spot" on R lung/stable. KATHLEEN/no longer needs to use device. 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 Past Anesthesia/Blood Transfusion Reactions: No Reported Reaction Past Psychological History: No Psychological Hx Reported Smoking Status: Former smoker Past Alcohol Use History: None Reported Past Drug Use History: None Reported - Past Family History Mother Family Medical History: Cancer Additional Family Medical History / Comment(s): Mother at age 82 of lung cancer. Father Family Medical History: Cancer Additional Family Medical History / Comment(s): Father at age 80 of prostrate cancer. Brother(s) Family Medical History: Cancer Additional Family Medical History / Comment(s): Patient has a total of 6 brothers. One brother with history of atrial fibrillation and kidney cancer, second brother with valvular heart disease, third brother with Parkinson's. Daughter(s) Additional Family Medical History / Comment(s): . Medications and Allergies Home Medications Medication Instructions Recorded Confirmed Type Tamsulosin HCl [Flomax] 0.4 mg PO BID@0700,1800 07/12/14 01/16/24 History Multivit-Min/FA/Lycopen/Lutein 1 tab PO DAILY 04/27/21 01/16/24 History [Centrum Silver Tablet] Cholecalciferol (Vitamin D3) 125 mcg PO DAILY 08/13/22 01/16/24 History [Vitamin D3 (125 MCG = 5,000 IU)] Midodrine [ProAmatine] 5 mg PO TID@0700,1300,1800 08/13/22 01/16/24 History Apixaban [Eliquis] 2.5 mg PO BID@0700,1800 11/02/23 01/16/24 History Levothyroxine Sodium [Synthroid] 88 mcg PO DAILY@0500 11/02/23 01/16/24 History Melatonin 6 mg PO HS 11/02/23 01/16/24 History Nitroglycerin Sl Tabs [Nitrostat] 0.4 mg SL Q5M PRN 11/02/23 01/16/24 History Azithromycin [Zithromax Z Pack] See Taper PO DAILY 01/16/24 01/16/24 History Bumetanide [BUMEX] 2 mg PO DAILY 01/16/24 01/16/24 History Bumetanide [Bumex] 1 mg PO DAILY@1400 01/16/24 01/16/24 History Empagliflozin [Jardiance] 10 mg PO DAILY 01/16/24 01/16/24 History Metoprolol Tartrate [Lopressor] 50 mg PO DAILY@1400 01/16/24 01/16/24 History Metoprolol Tartrate [Lopressor] 75 mg PO BID@0700,1800 01/16/24 01/16/24 History Ondansetron Odt [Zofran Odt] 4 mg PO Q6H PRN 01/16/24 01/16/24 History Potassium Chloride [Klor-Con 10 ER] See Taper PO DIRECTED 01/16/24 01/16/24 History Sennosides/Docusate Sodium [Alexa 1 tab PO DAILY 01/16/24 01/16/24 History Colace] metOLazone 2.5 mg PO MO 01/16/24 01/16/24 History Allergies Allergy/AdvReac Type Severity Reaction Status Date / Time isosorbide mononitrate Allergy Unknown Verified 01/16/24 12:22 [From Imdur] Penicillins Allergy Rash/Hives Verified 01/16/24 12:22 albuterol [From Ventolin HFA] AdvReac Rapid Verified 01/16/24 12:22 Heart Rate amiodarone HCl AdvReac LUNGS/EYE Verified 01/16/24 12:22 [From Cordarone] PROBLEMS codeine AdvReac Nausea & Verified 01/16/24 12:22 Vomiting enalapril maleate AdvReac Cough Verified 01/16/24 12:22 [From Vasotec] enalaprilat dihydrate AdvReac Cough Verified 01/16/24 12:22 [From Vasotec] hydromorphone HCl AdvReac Nausea & Verified 01/16/24 12:22 [From Dilaudid] Vomiting loratadine [From Claritin] AdvReac Rapid Verified 01/16/24 12:22 Heart Rate morphine AdvReac Nausea & Verified 01/16/24 12:22 Vomiting procainamide HCl AdvReac "FLUID ON Verified 01/16/24 12:22 [From Pronestyl] HEART" tetanus toxoid, adsorbed AdvReac "JOINT Verified 01/16/24 12:22 STIFFNESS" Physical Exam Vitals: Vital Signs Temp Pulse Pulse Resp BP BP Pulse Ox 01/17/24 08:23 97.7 F 94 17 93/62 96 01/17/24 04:39 97.5 F L 94 17 105/61 97 01/16/24 23:41 97.7 F 90 17 115/70 95 01/16/24 21:28 98.4 F 100 92 17 100/59 113/69 97 01/16/24 20:03 94 20 109/59 95 01/16/24 18:56 92 18 102/62 96 01/16/24 18:48 92 18 102/62 96 01/16/24 17:48 90 18 101/77 98 01/16/24 14:25 90 18 106/82 95 01/16/24 11:32 83 18 100/60 100 Intake and Output 01/16/24 01/17/24 01/17/24 22:59 06:59 14:59 Intake Total 475 10 190 Output Total 400 1325 400 Balance 75 -1315 -210 Intake: IV 10 10 Invasive Line 1 10 10 Oral 475 180 Output: Urine 400 1325 400 Other: Voiding Method External Catheter External Catheter Weight 95.254 kg 100.4 kg Results 01/17/24 04:39 01/17/24 09:41 CBC 01/17/24 Range/Units 04:39 WBC 9.5 (3.8-10.6) k/uL RBC 3.98 L (4.30-5.90) m/uL Hgb 12.7 L (13.0-17.5) gm/dL Hct 38.4 L (39.0-53.0) % Plt Count 167 (150-450) k/uL Comprehensive Metabolic Panel 01/16/24 01/16/24 01/17/24 Range/Units 17:18 21:31 04:39 Sodium 115 L* 117 L* 120 L (137-145) mmol/L Potassium 3.7 3.5 (3.5-5.1) mmol/L Chloride 76 L 79 L (98-107) mmol/L Carbon Dioxide 29 34 H (22-30) mmol/L BUN 102 H* 100 H (9-20) mg/dL Creatinine 1.98 H 1.90 H (0.66-1.25) mg/dL Glucose 133 H 113 H (74-99) mg/dL Calcium 8.4 8.6 (8.4-10.2) mg/dL 01/17/24 Range/Units 09:41 Sodium 120 L (137-145) mmol/L Potassium (3.5-5.1) mmol/L Chloride (98-107) mmol/L Carbon Dioxide (22-30) mmol/L BUN (9-20) mg/dL Creatinine (0.66-1.25) mg/dL Glucose (74-99) mg/dL Calcium (8.4-10.2) mg/dL Current Medications Generic Name Dose Route Start Last Admin Trade Name Freq PRN Reason Stop Dose Admin Acetaminophen 650 mg 01/16/24 16:12 01/17/24 08:29 Acetaminophen Tab 325 Mg Tab PO 650 mg Q6HR PRN Administration Fever and/ or Pain Hydrocodone Bitart/Acetaminophen 1 each 01/16/24 21:02 01/16/24 21:21 Hydrocodone/Apap 5-325mg 1 Each Tab PO 1 each Q6HR PRN Administration Pain Apixaban 2.5 mg 01/16/24 18:00 01/17/24 06:00 Apixaban 2.5 Mg Tablet PO 2.5 mg BID@0700,1800 [facility] Administration Protocol Dapagliflozin 5 mg 01/17/24 09:00 01/17/24 08:29 Dapagliflozin Propanediol 5 Mg Tablet PO 5 mg DAILY PHILLY Administration Levothyroxine Sodium 88 mcg 01/17/24 05:00 01/17/24 05:59 Levothyroxine 88 Mcg Tab PO 88 mcg DAILY@0500 [facility] Administration Melatonin 6 mg 01/16/24 21:00 01/16/24 20:36 Melatonin 3 Mg Tablet PO 6 mg HS PHILLY Administration Metoprolol Tartrate 50 mg 01/17/24 18:00 Metoprolol Tartrate 50 Mg Tab PO BID@0700,1800 [facility] Midodrine 5 mg 01/16/24 18:00 01/17/24 06:00 Midodrine 5 Mg Tab PO 5 mg TID@0700,1300,1800 [facility] Administration Senna/Docusate Sodium 1 each 01/17/24 09:00 01/17/24 08:29 Sennosides-Docusate Sodium 1 Each Tab PO 1 each DAILY PHILLY Administration Tamsulosin HCl 0.4 mg 01/16/24 18:00 01/17/24 05:59 Tamsulosin 0.4 Mg Cap.Er.24h PO 0.4 mg BID@0700,1800 [facility] Administration Intake and Output 01/16/24 01/17/24 01/17/24 22:59 06:59 14:59 Intake Total 475 10 190 Output Total 400 1325 400 Balance 75 -1315 -210 Intake: IV 10 10 Invasive Line 1 10 10 Oral 475 180 Output: Urine 400 1325 400 Other: Voiding Method External Catheter External Catheter Weight 95.254 kg 100.4 kg 01/17/24 04:39 01/17/24 09:41
--- NOTE | 2024-01-17 13:10 | US ---
EXAMINATION TYPE: US kidneys/renal and bladder DATE OF EXAM: 01/17/2024 COMPARISON: CT 11/07/23 CLINICAL INDICATION: Male, 88 years old with history of janet; EXAM MEASUREMENTS: Right Kidney: 6.5 x 4.0 x 3.0 cm Left Kidney: Non-visualization Right Kidney: Limited visualization Left Kidney: Unable to visualize Bladder: Area imaged There is no evidence for hydronephrosis at this point in time. No nephrolithiasis is seen. No joseph s are identified. The urinary bladder is anechoic. Bilateral ureteral jets are seen. Patient unable to move and in a scrunched position. Suboptimal study IMPRESSION: Essentially nondiagnostic renal examination
[2024-01-17] MEDS: SODIUM CHLORIDE 0.9% 1,000 ML IV SCH (13:11)
[2024-01-17 14:52] VITALS: BMI 29.9
[2024-01-17 15:46] LABS: Appearance,Urine Clear (Clear); Bilirubin,Urine Negative (Negative); Blood,Urine Negative (Negative); Color,Urine Colorless; Glucose,Urine (UA) Trace (Negative); Ketones,Urine Negative (Negative); Leukocyte Esterase,Urine Negative (Negative); Nitrite,Urine Negative (Negative); PH, Urine 5.5 (5.0-8.0); Protein,Urine Trace (Negative); Specific Gravity,Urine 1.012 (1.001-1.035); Urobilinogen,Urine <2.0 mg/dL (<2.0)
[2024-01-17] MEDS: METOPROLOL TARTRATE 50 MG TAB PO SCH (16:59)
[2024-01-18 07:38] LABS: Basophils % (A) 0 %; Eosinophils # (A) 0.1 k/uL (0-0.7); Eosinophils % (A) 1 %; HCT 39.4 % (39.0-53.0); HGB 13.1 gm/dL (13.0-17.5); Lymphocytes # (A) 0.6 k/uL (1.0-4.8); Lymphocytes % (A) 6 %; MCH 32.8 pg (25.0-35.0); MCHC 33.2 g/dL (31.0-37.0); MCV 98.9 fL (80.0-100.0); Mean Platelet Volume 8.5; Monocytes # (A) 0.4 k/uL (0-1.0); Monocytes % (A) 4 %; Neutrophils # (A) 8.9 k/uL (1.3-7.7); Neutrophils % (A) 88 %; Platelet Count 152 k/uL (150-450); RBC 3.99 m/uL (4.30-5.90); RDW 13.4 % (11.5-15.5); WBC 10.1 k/uL (3.8-10.6)
[2024-01-18 07:52] LABS: African American GFR (CKD) 51 (>60 ml/min/1.73 sqM); Anion Gap 8 mmol/L; Blood Urea Nitrogen 87 mg/dL (9-20); Calcium 8.6 mg/dL (8.4-10.2); Carbon Dioxide 33 mmol/L (22-30); Chloride 85 mmol/L (98-107); Glucose 130 mg/dL (74-99); Non-African American GFR(CKD) 44 (>60 ml/min/1.73 sqM); Potassium 3.1 mmol/L (3.5-5.1); Sodium 126 mmol/L (137-145)
[2024-01-18 09:07] LABS: RBC Morphology Normal
--- NOTE | 2024-01-18 09:25 | P.PN ---
Subjective Patient is seen in follow-up for hyponatremia and acute kidney injury on chronic kidney disease. Sodium level improving with normal saline. Oral intake fair. Denies vomiting or diarrhea. No chest pain or shortness of breath. Vital signs are stable. General: No acute distress. HEENT: Head exam is unremarkable. LUNGS: No audible rhonchi or wheezes. HEART: Rate and Rhythm are regular. ABDOMEN: Nontender. EXTREMITITES: Trace edema. No drainage. Objective - Vital Signs Vital signs: Vital Signs Temp 97.4 F L 01/18/24 07:34 Pulse 88 01/18/24 07:34 Resp 18 01/18/24 07:34 BP 102/58 01/18/24 07:34 Pulse Ox 96 01/18/24 07:34 FiO2 Intake & Output 01/17/24 01/18/24 01/18/24 18:59 06:59 18:59 Intake Total 560 240 Output Total 1350 1200 Balance -790 -1200 240 Weight 100.4 kg 100.6 kg Intake: IV 20 Invasive Line 1 20 Oral 540 240 Output: Urine 1350 1200 Other: Voiding Method External Catheter External Catheter External Catheter - Labs CBC & Chem 7: 01/18/24 07:13 01/18/24 07:13 Labs: Abnormal Lab Results - Last 24 Hours (Table) 01/17/24 01/17/24 01/17/24 Range/Units 09:41 15:16 17:56 RBC (4.30-5.90) m/uL Neutrophils # (1.3-7.7) k/uL Lymphocytes # (1.0-4.8) k/uL Sodium 120 L 122 L (137-145) mmol/L Potassium (3.5-5.1) mmol/L Chloride (98-107) mmol/L Carbon Dioxide (22-30) mmol/L BUN (9-20) mg/dL Creatinine (0.66-1.25) mg/dL Glucose (74-99) mg/dL Urine Protein Trace H (Negative) Urine Glucose (UA) Trace H (Negative) 01/18/24 01/18/24 Range/Units 07:13 07:13 RBC 3.99 L (4.30-5.90) m/uL Neutrophils # 8.9 H (1.3-7.7) k/uL Lymphocytes # 0.6 L (1.0-4.8) k/uL Sodium 126 L (137-145) mmol/L Potassium 3.1 L (3.5-5.1) mmol/L Chloride 85 L (98-107) mmol/L Carbon Dioxide 33 H (22-30) mmol/L BUN 87 H (9-20) mg/dL Creatinine 1.43 H (0.66-1.25) mg/dL Glucose 130 H (74-99) mg/dL Urine Protein (Negative) Urine Glucose (UA) (Negative) Assessment and Plan Plan: Assessment: 1. Hypovolemic hyponatremia improving with normal saline. Sodium level 126 this morning. Urine sodium less than 20 and urine osmolality 328. 2. Acute kidney injury secondary to ATN secondary to hypotension and use of diuretics. UA fairly benign. Improving. Creatinine peaked at 1.9 at this admission and is 1.43 today. 3. Hypokalemia from poor intake and diuretic use. 4. Chronic systolic CHF ejection fraction of 20 to 25%. Plan: Decrease rate of normal saline to 50 cc an hour. Replace potassium. Encouraged oral intake. Add 1500 cc fluid restriction. Check TSH. Repeat labs in the morning.
[2024-01-18] MEDS: POTASSIUM CHLORIDE ER 20 MEQ TAB.ER PO STA (09:51)
--- NOTE | 2024-01-18 11:00 | P.PN ---
Subjective HISTORY OF PRESENT ILLNESS: This is a 88-year-old male with a past medical history significant for atrial fibrillation, congestive heart failure, hypertension, and valvular heart disease. Patient follows in the office with Dr. Valenzuela. We have been asked to see the patient in consultation for elevated BNP. Patient examined at the bedside. Patient states he presented to the hospital with a chief complaint of chest pain. Patient states he has been having chest pain for weeks. He also reports associated shortness of breath. Patient was found to be hyponatremic upon admission to the hospital with a sodium level of 114. Repeat sodium this morning 120. DIAGNOSTICS: - EKG reveals atrial fibrillation with left bundle branch block. - Chest xray mild subsegmental atelectasis lateral left diaphragm. Cardiomegaly.. - Laboratory data: WBC 9.5. Hemoglobin 12.7. Platelet count 167. Sodium 120. Potassium 3.5. BUN 100. Creatinine 1.90. Magnesium 2.8. Troponin negative x 1. proBNP 21,800. - Current home cardiac medications include Eliquis 2.5 mg twice a day, Bumex 2 mg in the morning and 1 mg in the afternoon, Jardiance 10 mg daily, metoprolol tartrate 75 mg in the morning, 50 mg in the afternoon, and 75 mg in the evening, midodrine 5 mg 3 times a day, and metolazone 2.5 mg every Saturday. - Most recent echocardiogram obtained in December 2023 revealed ejection fraction 20 to 25% 01/18/2024 Patient examined this morning at bedside. Patient is complaining of back pain and constipation this morning. He currently denies chest pain or pressure. He denies shortness of breath. He remains on IV fluids. Sodium this morning is up to 126. Troponins negative x 2. PHYSICAL EXAM: VITAL SIGNS: Reviewed. GENERAL: Well-developed in no acute distress. HEENT: Head is normocephalic. Pupils are equal, round. Sclerae anicteric. Mucous membranes of the mouth are moist. Neck supple. No JVD or thyromegaly LUNGS: Respirations even and unlabored. Lungs essentially clear to auscultation bilaterally. HEART: Irregular rate and rhythm. S1 and S2 heard. Systolic murmur noted ABDOMEN: Soft. Nondistended. Nontender. EXTREMITIES: Normal range of motion. No clubbing or cyanosis. Peripheral pulses intact. Patient with bilateral lower extremity wounds with gauze dressings noted NEUROLOGIC: Awake and alert. Oriented x 3. ASSESSMENT: Chest pain, troponin negative x 2, no evidence of acute coronary syndrome Hyponatremia Bilateral lower extremity wounds Chronic heart failure with reduced EF, not fluid overloaded on examination Chronic kidney disease Nonischemic cardiomyopathy, ejection fraction 20-25% Longstanding persistent atrial fibrillation with controlled ventricular rate Valvular heart disease Hypertension PLAN: Continue current cardiac medications Nephrology following for hyponatremia. Currently receiving IV fluids Patient is currently stable from a cardiac perspective Further recommendations pending patient course Nurse practitioner note has been reviewed by physician. Signing provider agrees with the documented findings, assessment, and plan of care documented by PARKING INSPECTOR as a scribe. Objective - Vital Signs Vital signs: Vital Signs Temp 97.4 F L 01/18/24 07:34 Pulse 88 01/18/24 07:34 Resp 18 01/18/24 07:34 BP 102/58 01/18/24 07:34 Pulse Ox 96 01/18/24 07:34 FiO2 Intake & Output 01/17/24 01/18/24 01/18/24 18:59 06:59 18:59 Intake Total 560 240 Output Total 1350 1200 Balance -790 -1200 240 Weight 100.4 kg 100.6 kg Intake: IV 20 Invasive Line 1 20 Oral 540 240 Output: Urine 1350 1200 Other: Voiding Method External Catheter External Catheter External Catheter # Bowel Movements 1 - Labs CBC & Chem 7: 01/18/24 07:13 01/18/24 07:13 Labs: Abnormal Lab Results - Last 24 Hours (Table) 01/17/24 01/17/24 01/18/24 Range/Units 15:16 17:56 07:13 RBC 3.99 L (4.30-5.90) m/uL Neutrophils # 8.9 H (1.3-7.7) k/uL Lymphocytes # 0.6 L (1.0-4.8) k/uL Sodium 122 L (137-145) mmol/L Potassium (3.5-5.1) mmol/L Chloride (98-107) mmol/L Carbon Dioxide (22-30) mmol/L BUN (9-20) mg/dL Creatinine (0.66-1.25) mg/dL Glucose (74-99) mg/dL Urine Protein Trace H (Negative) Urine Glucose (UA) Trace H (Negative) 01/18/24 Range/Units 07:13 RBC (4.30-5.90) m/uL Neutrophils # (1.3-7.7) k/uL Lymphocytes # (1.0-4.8) k/uL Sodium 126 L (137-145) mmol/L Potassium 3.1 L (3.5-5.1) mmol/L Chloride 85 L (98-107) mmol/L Carbon Dioxide 33 H (22-30) mmol/L BUN 87 H (9-20) mg/dL Creatinine 1.43 H (0.66-1.25) mg/dL Glucose 130 H (74-99) mg/dL Urine Protein (Negative) Urine Glucose (UA) (Negative)
[2024-01-18] MEDS: POTASSIUM CHLORIDE ER 20 MEQ TAB.ER PO ONE (11:18)
[2024-01-18] MEDS: POTASSIUM CHLORIDE ER 20 MEQ TAB.ER PO SCH (19:42)
[2024-01-19 08:00] LABS: African American GFR (CKD) 52 (>60 ml/min/1.73 sqM); Anion Gap 7 mmol/L; Blood Urea Nitrogen 81 mg/dL (9-20); Calcium 8.6 mg/dL (8.4-10.2); Carbon Dioxide 30 mmol/L (22-30); Chloride 91 mmol/L (98-107); Glucose 133 mg/dL (74-99); Non-African American GFR(CKD) 45 (>60 ml/min/1.73 sqM); Potassium 4.4 mmol/L (3.5-5.1); Sodium 128 mmol/L (137-145)
--- NOTE | 2024-01-19 10:07 | P.PN ---
Subjective HISTORY OF PRESENT ILLNESS: This is a 88-year-old male with a past medical history significant for atrial fibrillation, congestive heart failure, hypertension, and valvular heart disease. Patient follows in the office with Dr. Valenzuela. We have been asked to see the patient in consultation for elevated BNP. Patient examined at the bedside. Patient states he presented to the hospital with a chief complaint of chest pain. Patient states he has been having chest pain for weeks. He also reports associated shortness of breath. Patient was found to be hyponatremic upon admission to the hospital with a sodium level of 114. Repeat sodium this morning 120. DIAGNOSTICS: - EKG reveals atrial fibrillation with left bundle branch block. - Chest xray mild subsegmental atelectasis lateral left diaphragm. Cardiomegaly.. - Laboratory data: WBC 9.5. Hemoglobin 12.7. Platelet count 167. Sodium 120. Potassium 3.5. BUN 100. Creatinine 1.90. Magnesium 2.8. Troponin negative x 1. proBNP 21,800. - Current home cardiac medications include Eliquis 2.5 mg twice a day, Bumex 2 mg in the morning and 1 mg in the afternoon, Jardiance 10 mg daily, metoprolol tartrate 75 mg in the morning, 50 mg in the afternoon, and 75 mg in the evening, midodrine 5 mg 3 times a day, and metolazone 2.5 mg every Saturday. - Most recent echocardiogram obtained in December 2023 revealed ejection fraction 20 to 25% 01/18/2024 Patient examined this morning at bedside. Patient is complaining of back pain and constipation this morning. He currently denies chest pain or pressure. He denies shortness of breath. He remains on IV fluids. Sodium this morning is up to 126. Troponins negative x 2. 01/19/2024 Patient examined this morning. He is sitting on the side of the bed. Patient does complain of some chest discomfort that started this morning. He states he has been having these pains on and off. EKG performed revealing atrial fibrillation with left bundle branch block. He remains on IV fluids per nephrology. Sodium today 128. PHYSICAL EXAM: VITAL SIGNS: Reviewed. GENERAL: Well-developed in no acute distress. HEENT: Head is normocephalic. Pupils are equal, round. Sclerae anicteric. Mucous membranes of the mouth are moist. Neck supple. No JVD or thyromegaly LUNGS: Respirations even and unlabored. Lungs essentially clear to auscultation bilaterally. HEART: Irregular rate and rhythm. S1 and S2 heard. Systolic murmur noted ABDOMEN: Soft. Nondistended. Nontender. EXTREMITIES: Normal range of motion. No clubbing or cyanosis. Peripheral p ulses intact. Patient with bilateral lower extremity wounds with gauze dressings noted NEUROLOGIC: Awake and alert. Oriented x 3. ASSESSMENT: Chest pain, troponin negative x 2, no evidence of acute coronary syndrome Hyponatremia Bilateral lower extremity wounds Chronic heart failure with reduced EF, not fluid overloaded on examination Chronic kidney disease Nonischemic cardiomyopathy, ejection fraction 20-25% Longstanding persistent atrial fibrillation with controlled ventricular rate Valvular heart disease Hypertension PLAN: Continue current cardiac medications Nephrology following for hyponatremia. Currently receiving IV fluids. IV diuretics remain on hold Obtain troponin due to complaints of chest pain this morning. EKG this morning reveals A-fib with left bundle branch block. Unable to add Imdur as patient has allergy. Further recommendations pending patient course Nurse practitioner note has been reviewed by physician. Signing provider agrees with the documented findings, assessment, and plan of care documented by LLAMA FARMER as a scribe. Objective - Vital Signs Vital signs: Vital Signs Temp 98.1 F 01/19/24 07:45 Pulse 92 01/19/24 07:45 Resp 18 01/19/24 07:45 BP 105/67 01/19/24 07:45 Pulse Ox 98 01/19/24 07:45 FiO2 Intake & Output 01/18/24 01/19/24 01/19/24 18:59 06:59 18:59 Intake Total 480 480 Output Total 1050 600 Balance -570 -600 480 Weight 102 kg Intake: Oral 480 480 Output: Urine 1050 600 Other: Voiding Method External Catheter External Catheter External Catheter # Bowel Movements 1 - Labs CBC & Chem 7: 01/18/24 07:13 01/19/24 07:10 Labs: Abnormal Lab Results - Last 24 Hours (Table) 01/19/24 Range/Units 07:10 Sodium 128 L (137-145) mmol/L Chloride 91 L (98-107) mmol/L BUN 81 H (9-20) mg/dL Creatinine 1.40 H (0.66-1.25) mg/dL Glucose 133 H (74-99) mg/dL Magnesium 3.0 H (1.6-2.3) mg/dL
[2024-01-19] MEDS: ASPIRIN 81 MG PO SCH (11:16)
--- NOTE | 2024-01-19 11:24 | P.PN ---
Subjective Patient is seen in follow-up for hyponatremia and acute kidney injury on chronic kidney disease. Sodium level improving with normal saline. Oral intake fair. Denies vomiting or diarrhea. No chest pain or shortness of breath. Vital signs are stable. General: No acute distress. HEENT: Head exam is unremarkable. LUNGS: No audible rhonchi or wheezes. HEART: Rate and Rhythm are regular. ABDOMEN: Nontender. EXTREMITITES: Trace edema. No drainage. Objective - Vital Signs Vital signs: Vital Signs Temp 97.5 F L 01/19/24 11:14 Pulse 91 01/19/24 11:14 Resp 18 01/19/24 11:14 BP 96/60 01/19/24 11:14 Pulse Ox 98 01/19/24 11:14 FiO2 Intake & Output 01/18/24 01/19/24 01/19/24 18:59 06:59 18:59 Intake Total 480 480 Output Total 1050 600 Balance -570 -600 480 Weight 102 kg Intake: Oral 480 480 Output: Urine 1050 600 Other: Voiding Method External Catheter External Catheter External Catheter # Bowel Movements 1 1 - Labs CBC & Chem 7: 01/18/24 07:13 01/19/24 07:10 Labs: Abnormal Lab Results - Last 24 Hours (Table) 01/19/24 01/19/24 Range/Units 07:10 08:57 Sodium 128 L (137-145) mmol/L Chloride 91 L (98-107) mmol/L BUN 81 H (9-20) mg/dL Creatinine 1.40 H (0.66-1.25) mg/dL Glucose 133 H (74-99) mg/dL Magnesium 3.0 H (1.6-2.3) mg/dL Troponin I 0.159 H* (0.000-0.034) ng/mL Assessment and Plan Plan: Assessment: 1. Hypovolemic hyponatremia improving with normal saline. Sodium level 128 this morning. Urine sodium less than 20 and urine osmolality 328. TSH normal. 2. Acute kidney injury secondary to ATN secondary to hypotension and use of diuretics. UA fairly benign. Improving. Creatinine peaked at 1.9 at this admission and is stable at 1.4 today. 3. Hypokalemia from poor intake and diuretic use. Replaced. Better. 4. Chronic systolic CHF ejection fraction of 20 to 25%. Plan: Maintain gentle IV hydration. Encouraged oral intake. Maintain fluid restriction. Repeat labs in the morning.
[2024-01-19] MEDS: guaiFENesin 600 MG TABLET.ER PO PRN (21:36)
--- NOTE | 2024-01-20 01:35 | P.PN ---
Subjective Progress Note Date: 01/17/24 Patient is a 88-year-old male with a past medical history of atrial flutter/fibrillation on anticoagulation Eliquis with history of ablation, chronic CHF, hypertension, osteoarthritis, BPH, obstructive sleep apnea not on CPAP and prior history of smoking presents to ER due to complaints of generalized weakness and shortness of breath. Patient states that he was started on Bumex and metolazone due to his worsening leg swelling. Patient was told by his primary care physician about 6 days ago that he has hypokalemia and should go to hospital. Patient was given potassium supplementation which he has been taking but he woke up this morning and felt very weak and thought he would come to ER. Patient was having leg swelling and shortness of breath at baseline. Also complaining of mild chest discomfort. Denies any dizziness or lightheadedness. No nausea vomiting abdominal pain or diarrhea. Chest x-ray showed mild subsegmental atelectasis lateral left hemidiaphragm. Cardiomegaly. EKG showed atrial fibrillation with aberrant conduction or ventricular premature complexes. Heart rate 89 Laboratory data showed WBC 8.7 hemoglobin 13.1 and platelets 182 Sodium 114 potassium 3.7 chloride 74 bicarb is 31 BUN 104 and creatinine 1.7 and blood sugar 119 and magnesium 2.8 proBNP 21,800 and troponin 0.012 01/17/2024 Patient is lying in the bed. Awake alert cooperative seems very weak. No compl aints of chest pain or worsening shortness of breath. Patient was started on IV hydration with normal saline. Sodium level improved to 120 today. Urine osmolality 328 and random sodium less than 20. No complaints of fever or chills. Diuretics on hold. Laboratory data showed WBC 9.5 hemoglobin 12.7 and platelets 167 sodium 120 potassium 3.5 chloride 79 bicarb is 34 BUN 100 and creatinine 1.9 and blood sugar 113. Urinalysis is negative for infection. Cardiology and nephrology is on board. Current medications reviewed. Objective - Vital Signs Vital signs: Vital Signs Temp 98.2 F 01/17/24 20:00 Pulse 96 01/17/24 20:00 Resp 19 01/17/24 20:00 BP 103/60 01/17/24 20:00 Pulse Ox 96 01/17/24 20:00 FiO2 Intake & Output 07/12/24 07/12/24 07/13/24 06:59 18:59 06:59 Intake Total 10 560 Output Total 1325 1350 600 Balance -1315 -790 -600 Weight 100.4 kg 100.4 kg Intake: IV 10 20 Invasive Line 1 10 20 Oral 540 Output: Urine 1325 1350 600 Other: Voiding Method External Catheter External Catheter External Catheter - Exam PHYSICAL EXAMINATION: Patient is lying in the bed,, no acute distress, awake alert and oriented.. HEENT: Normocephalic. Neck is supple. Pupils reactive. Nostrils clear. Oral cavity is moist. Neck reveals no JVD, carotid bruits, or thyromegaly. CHEST EXAMINATION: Trachea is central. Symmetrical expansion. Bibasilar diminished sounds. Lung del angel clear to auscultation and percussion. CARDIAC: Normal S1, S2 with no gallops. Irregular rhythm. Systolic murmur. ABDOMEN: Soft. Bowel sounds normal. No organomegaly. No abdominal bruits. Extremities: Bilateral lower extremity trace edema. No clubbing or cyanosis Neurologically awake, alert, oriented x 2-3, with well-coordinated movements. No gross focal deficits noted Skin: No rash. Sacral stage II ulcer s. Psychiatric: Coperative. Nonsuicidal Musculoskeletal: No joint swelling or deformity. Normal range of motion. - Labs CBC & Chem 7: 01/18/24 07:13 01/19/24 07:10 Labs: Abnormal Lab Results - Last 24 Hours (Table) 01/16/24 01/16/24 01/17/24 Range/Units 20:06 20:06 04:39 RBC 3.98 L (4.30-5.90) m/uL Hgb 12.7 L (13.0-17.5) gm/dL Hct 38.4 L (39.0-53.0) % Neutrophils # 8.1 H (1.3-7.7) k/uL Lymphocytes # 0.8 L (1.0-4.8) k/uL Sodium (137-145) mmol/L Chloride (98-107) mmol/L Carbon Dioxide (22-30) mmol/L BUN (9-20) mg/dL Creatinine (0.66-1.25) mg/dL Glucose (74-99) mg/dL Urine Protein (Negative) Urine Glucose (UA) (Negative) Urine Osmolality 328 L (400-1100) mOsm/kg Ur Random Sodium <20 L (40-220) mmol/L 01/17/24 01/17/24 01/17/24 Range/Units 04:39 09:41 15:16 RBC (4.30-5.90) m/uL Hgb (13.0-17.5) gm/dL Hct (39.0-53.0) % Neutrophils # (1.3-7.7) k/uL Lymphocytes # (1.0-4.8) k/uL Sodium 120 L 120 L (137-145) mmol/L Chloride 79 L (98-107) mmol/L Carbon Dioxide 34 H (22-30) mmol/L BUN 100 H (9-20) mg/dL Creatinine 1.90 H (0.66-1.25) mg/dL Glucose 113 H (74-99) mg/dL Urine Protein Trace H (Negative) Urine Glucose (UA) Trace H (Negative) Urine Osmolality (400-1100) mOsm/kg Ur Random Sodium (40-220) mmol/L 01/17/24 Range/Units 17:56 RBC (4.30-5.90) m/uL Hgb (13.0-17.5) gm/dL Hct (39.0-53.0) % Neutrophils # (1.3-7.7) k/uL Lymphocytes # (1.0-4.8) k/uL Sodium 122 L (137-145) mmol/L Chloride (98-107) mmol/L Carbon Dioxide (22-30) mmol/L BUN (9-20) mg/dL Creatinine (0.66-1.25) mg/dL Glucose (74-99) mg/dL Urine Protein (Negative) Urine Glucose (UA) (Negative) Urine Osmolality (400-1100) mOsm/kg Ur Random Sodium (40-220) mmol/L Assessment and Plan Assessment: Generalized weakness Severe hyponatremia with sodium level 114 on admission. Likely due to diuretic use Chest pain ruled out ACS Bilateral lower extremity wounds and sacral decub ulcers stage II Chronic CHF with reduced ejection fraction Nonischemic cardiomyopathy ejection fraction 20 to 25% Atrial fibrillation chronic on anticoagulation with Eliquis. Prior history of fibrillation. Hypertension BPH Obstructive sleep apnea on CPAP GERD Prior history of smoking DVT prophylaxis. Patient is already on Eliquis Plan: Patient will be continued on IV hydration with normal saline. Metolazone and Bumex is on hold. Follow-up repeat sodium level every 4 hourly. Nephrology and cardiology is on board.. Continue to monitor respiratory status closely due to underlying CHF. wound consulted. Continue with dressing changes. Prognosis guarded with multimedical problems and comorbid conditions. Discussed with family at bedside in detail. Time with Patient: Greater than 30
--- NOTE | 2024-01-20 01:37 | P.PN ---
Subjective Progress Note Date: 01/18/24 Patient is a 88-year-old male with a past medical history of atrial flutter/fibrillation on anticoagulation Eliquis with history of ablation, chronic CHF, hypertension, osteoarthritis, BPH, obstructive sleep apnea not on CPAP and prior history of smoking presents to ER due to complaints of generalized weakness and shortness of breath. Patient states that he was started on Bumex and metolazone due to his worsening leg swelling. Patient was told by his primary care physician about 6 days ago that he has hypokalemia and should go to hospital. Patient was given potassium supplementation which he has been taking but he woke up this morning and felt very weak and thought he would come to ER. Patient was having leg swelling and shortness of breath at baseline. Also complaining of mild chest discomfort. Denies any dizziness or lightheadedness. No nausea vomiting abdominal pain or diarrhea. Chest x-ray showed mild subsegmental atelectasis lateral left hemidiaphragm. Cardiomegaly. EKG showed atrial fibrillation with aberrant conduction or ventricular premature complexes. Heart rate 89 Laboratory data showed WBC 8.7 hemoglobin 13.1 and platelets 182 Sodium 114 potassium 3.7 chloride 74 bicarb is 31 BUN 104 and creatinine 1.7 and blood sugar 119 and magnesium 2.8 proBNP 21,800 and troponin 0.012 01/17/2024 Patient is lying in the bed. Awake alert cooperative seems very weak. No compl aints of chest pain or worsening shortness of breath. Patient was started on IV hydration with normal saline. Sodium level improved to 120 today. Urine osmolality 328 and random sodium less than 20. No complaints of fever or chills. Diuretics on hold. Laboratory data showed WBC 9.5 hemoglobin 12.7 and platelets 167 sodium 120 potassium 3.5 chloride 79 bicarb is 34 BUN 100 and creatinine 1.9 and blood sugar 113. Urinalysis is negative for infection. Cardiology and nephrology is on board. 01/18/2024 Patient is resting in the bed. Awake alert and oriented x 3. Denied any complaints of chest pain or shortness of breath. Patient is on IV hydration with normal saline. No headache or dizziness or lightheadedness. No complaints of abdominal pain or nausea. Tolerating oral diet slowly. Laboratory data shows sodium level improved to 126. Potassium 3.1 chloride 85 bicarbonate 33 BUN 87 creatinine 1.43 and blood sugar 130. Patient is on normal saline at 50 cc/h. Also on anticoagulation with Eliquis. Current medications reviewed. Objective - Vital Signs Vital signs: Vital Signs Temp 98.2 F 01/18/24 20:00 Pulse 111 H 01/18/24 20:00 Resp 18 01/18/24 20:00 BP 107/64 01/18/24 20:00 Pulse Ox 98 01/18/24 20:00 FiO2 Intake & Output 01/18/24 01/18/24 01/19/24 06:59 18:59 06:59 Intake Total 480 Output Total 1200 1050 Balance -1200 -570 Weight 100.6 kg Intake: Oral 480 Output: Urine 1200 1050 Other: Voiding Method External Catheter External Catheter External Catheter # Bowel Movements 1 - Exam PHYSICAL EXAMINATION: Patient is lying in the bed,, no acute distress, awake alert and oriented.. HEENT: Normocephalic. Neck is supple. Pupils reactive. Nostrils clear. Oral cavity is moist. Neck reveals no JVD, carotid bruits, or thyromegaly. CHEST EXAMINATION: Trachea is central. Symmetrical expansion. Bibasilar diminished sounds. Lung del angel clear to auscultation and percussion. CARDIAC: Normal S1, S2 with no gallops. Irregular rhythm. Systolic murmur. ABDOMEN: Soft. Bowel sounds normal. No organomegaly. No abdominal bruits. Extremities: Bilateral lower extremity trace edema. No clubbing or cyanosis Neurologically awake, alert, oriented x 2-3, with well-coordinated movements. No gross focal deficits noted Skin: No rash. Sacral stage II ulcer s. Psychiatric: Coperative. Nonsuicidal Musculoskeletal: No joint swelling or deformity. Normal range of motion. - Labs CBC & Chem 7: 01/18/24 07:01/19/24 07:10 Labs: Abnormal Lab Results - Last 24 Hours (Table) 01/18/24 01/18/24 Range/Units 07: 07:13 RBC 3.99 L (4.30-5.90) m/uL Neutrophils # 8.9 H (1.3-7.7) k/uL Lymphocytes # 0.6 L (1.0-4.8) k/uL Sodium 126 L (137-145) mmol/L Potassium 3.1 L (3.5-5.1) mmol/L Chloride 85 L (98-107) mmol/L Carbon Dioxide 33 H (22-30) mmol/L BUN 87 H (9-20) mg/dL Creatinine 1.43 H (0.66-1.25) mg/dL Glucose 130 H (74-99) mg/dL Assessment and Plan Assessment: Generalized weakness Severe hyponatremia with sodium level 114 on admission. Likely due to diuretic use Chest pain ruled out ACS Bilateral lower extremity wounds and sacral decub ulcers stage II Chronic CHF with reduced ejection fraction Nonischemic cardiomyopathy ejection fraction 20 to 25% Atrial fibrillation chronic on anticoagulation with Eliquis. Prior history of fibrillation. Hypertension BPH Obstructive sleep apnea on CPAP GERD Prior history of smoking DVT prophylaxis. Patient is already on Eliquis Plan: Patient will be continued on IV hydration with normal saline. Sodium level improved to 126 today. Metolazone and Bumex is on hold. Replace electrolytes. Nephrology and cardiology is on board.. Continue to monitor respiratory status closely due to underlying CHF. wound consulted. Continue with dressing changes. Prognosis guarded with multimedical problems and comorbid conditions. Discussed with family at bedside in detail. Time with Patient: Greater than 30
--- NOTE | 2024-01-20 01:39 | P.PN ---
Subjective Progress Note Date: 01/19/24 Patient is a 88-year-old male with a past medical history of atrial flutter/fibrillation on anticoagulation Eliquis with history of ablation, chronic CHF, hypertension, osteoarthritis, BPH, obstructive sleep apnea not on CPAP and prior history of smoking presents to ER due to complaints of generalized weakness and shortness of breath. Patient states that he was started on Bumex and metolazone due to his worsening leg swelling. Patient was told by his primary care physician about 6 days ago that he has hypokalemia and should go to hospital. Patient was given potassium supplementation which he has been taking but he woke up this morning and felt very weak and thought he would come to ER. Patient was having leg swelling and shortness of breath at baseline. Also complaining of mild chest discomfort. Denies any dizziness or lightheadedness. No nausea vomiting abdominal pain or diarrhea. Chest x-ray showed mild subsegmental atelectasis lateral left hemidiaphragm. Cardiomegaly. EKG showed atrial fibrillation with aberrant conduction or ventricular premature complexes. Heart rate 89 Laboratory data showed WBC 8.7 hemoglobin 13.1 and platelets 182 Sodium 114 potassium 3.7 chloride 74 bicarb is 31 BUN 104 and creatinine 1.7 and blood sugar 119 and magnesium 2.8 proBNP 21,800 and troponin 0.012 01/17/2024 Patient is lying in the bed. Awake alert cooperative seems very weak. No compl aints of chest pain or worsening shortness of breath. Patient was started on IV hydration with normal saline. Sodium level improved to 120 today. Urine osmolality 328 and random sodium less than 20. No complaints of fever or chills. Diuretics on hold. Laboratory data showed WBC 9.5 hemoglobin 12.7 and platelets 167 sodium 120 potassium 3.5 chloride 79 bicarb is 34 BUN 100 and creatinine 1.9 and blood sugar 113. Urinalysis is negative for infection. Cardiology and nephrology is on board. 01/18/2024 Patient is resting in the bed. Awake alert and oriented x 3. Denied any complaints of chest pain or shortness of breath. Patient is on IV hydration with normal saline. No headache or dizziness or lightheadedness. No complaints of abdominal pain or nausea. Tolerating oral diet slowly. Laboratory data shows sodium level improved to 126. Potassium 3.1 chloride 85 bicarbonate 33 BUN 87 creatinine 1.43 and blood sugar 130. Patient is on normal saline at 50 cc/h. Also on anticoagulation with Eliquis. 01/19/2024 Patient is currently sitting in the chair. Awake alert and oriented x 3. Able to tolerate oral diet. No complaints of chest pain or shortness of breath. Patient remains on IV hydration with normal saline at 50 cc/h. Laboratory showed sodium level improved to 128 today. No nausea vomiting abdominal pain or diarrhea. No cough or sputum production. IV diuretics on hold. Patient did have chest pain this morning and troponin was ordered. EKG showed atrial fibrillation with left bundle branch block. Other laboratory data reviewed. Current medications reviewed. Objective - Vital Signs Vital signs: Vital Signs Temp 98.0 F 01/19/24 20:10 Pulse 101 H 01/19/24 20:10 Resp 18 01/19/24 20:10 BP 100/68 01/19/24 20:10 Pulse Ox 99 01/19/24 20:10 FiO2 Intake & Output 01/19/24 01/19/24 01/20/24 06:59 18:59 06:59 Intake Total 598 Output Total 600 400 Balance -600 198 Weight 102 kg Intake: Oral 598 Output: Urine 600 400 Other: Voiding Method External Catheter External Catheter External Catheter # Bowel Movements 1 - Exam PHYSICAL EXAMINATION: Patient is lying in the bed,, no acute distress, awake alert and oriented.. HEENT: Normocephalic. Neck is supple. Pupils reactive. Nostrils clear. Oral cavity is moist. Neck reveals no JVD, carotid bruits, or thyromegaly. CHEST EXAMINATION: Trachea is central. Symmetrical expansion. Lung del angel clear to auscultation and percussion. CARDIAC: Normal S1, S2 with no gallops. Irregular rhythm. Systolic murmur. ABDOMEN: Soft. Bowel sounds normal. No organomegaly. No abdominal bruits. Extremities: Bilateral lower extremity trace edema. No clubbing or cyanosis Neurologically awake, alert, oriented x 2-3, with well-coordinated movements. No gross focal deficits noted Skin: No rash. Sacral stage II ulcer s. Psychiatric: Coperative. Nonsuicidal Musculoskeletal: No joint swelling or deformity. Normal range of motion. - Labs CBC & Chem 7: 01/18/24 07:13 01/19/24 07:10 Labs: Abnormal Lab Results - Last 24 Hours (Table) 01/19/24 01/19/24 01/19/24 Range/Units 07:10 08:57 13:18 Sodium 128 L (137-145) mmol/L Chloride 91 L (98-107) mmol/L BUN 81 H (9-20) mg/dL Creatinine 1.40 H (0.66-1.25) mg/dL Glucose 133 H (74-99) mg/dL Magnesium 3.0 H (1.6-2.3) mg/dL Troponin I 0.159 H* 0.162 H* (0.000-0.034) ng/mL 01/19/24 Range/Units 16:28 Sodium (137-145) mmol/L Chloride (98-107) mmol/L BUN (9-20) mg/dL Creatinine (0.66-1.25) mg/dL Glucose (74-99) mg/dL Magnesium (1.6-2.3) mg/dL Troponin I 0.135 H* (0.000-0.034) ng/mL Assessment and Plan Assessment: Generalized weakness Severe hyponatremia with sodium level 114 on admission. Likely due to diuretic use Chest pain ruled out ACS Bilateral lower extremity wounds and sacral decub ulcers stage II Chronic CHF with reduced ejection fraction Nonischemic cardiomyopathy ejection fraction 20 to 25% Atrial fibrillation chronic on anticoagulation with Eliquis. Prior history of fibrillation. Hypertension BPH Obstructive sleep apnea on CPAP GERD Prior history of smoking DVT prophylaxis. Patient is already on Eliquis Plan: Patient will be continued on IV hydration with normal saline. Sodium level improved to 126--128 today. Metolazone and Bumex is on hold. Replace electrolytes. Nephrology and cardiology is on board.. Continue to monitor respiratory status closely due to underlying CHF. wound consulted. Continue with dressing changes. Prognosis guarded with multimedical problems and comorbid conditions. Discussed with family at bedside in detail. Time with Patient: Greater than 30
--- NOTE | 2024-01-20 01:47 | XR ---
EXAM: XR Chest, 1 View CLINICAL HISTORY: ITS.REASON XR Reason: Short of breath TECHNIQUE: Frontal view of the chest. COMPARISON: No relevant prior studies available. IMPRESSION: Cardiomegaly. Slightly prominent interstitial markings. Bibasilar opacities.
[2024-01-20 08:51] LABS: African American GFR (CKD) 52 (>60 ml/min/1.73 sqM); Anion Gap 6 mmol/L; Blood Urea Nitrogen 77 mg/dL (9-20); Calcium 8.5 mg/dL (8.4-10.2); Carbon Dioxide 30 mmol/L (22-30); Chloride 96 mmol/L (98-107); Glucose 172 mg/dL (74-99); Magnesium 3.1 mg/dL (1.6-2.3); Non-African American GFR(CKD) 45 (>60 ml/min/1.73 sqM); Potassium 4.7 mmol/L (3.5-5.1); Sodium 132 mmol/L (137-145)
[2024-01-20] MEDS ORDERED: MIDODRINE 5 MG TAB PO PRN (10:31)
[2024-01-20] MEDS: METOPROLOL TARTRATE 25 MG TAB PO SCH (11:08)
--- NOTE | 2024-01-20 12:23 | P.PN ---
Subjective Patient is seen in follow-up for hyponatremia and acute kidney injury on chronic kidney disease. Sodium level improving. Renal function stable. Oral intake fair. Denies vomiting or diarrhea. No chest pain or shortness of breath. Vital signs are stable. General: No acute distress. HEENT: Head exam is unremarkable. LUNGS: No audible rhonchi or wheezes. HEART: Rate and Rhythm are regular. ABDOMEN: Nontender. EXTREMITITES: Trace edema. No drainage. Objective - Vital Signs Vital signs: Vital Signs Temp 97.6 F 01/20/24 07:55 Pulse 104 H 01/20/24 11:04 Resp 18 01/20/24 11:04 BP 99/65 01/20/24 11:04 Pulse Ox 98 01/20/24 11:04 FiO2 Intake & Output 01/19/24 01/20/24 01/20/24 18:59 06:59 18:59 Intake Total 598 480 Output Total 400 Balance 198 480 Weight 103.6 kg Intake: Oral 598 480 Output: Urine 400 Other: Voiding Method External Catheter External Catheter External Catheter # Bowel Movements 1 - Labs CBC & Chem 7: 01/18/24 07:13 01/20/24 08:10 Labs: Abnormal Lab Results - Last 24 Hours (Table) 01/19/24 01/19/24 01/20/24 Range/Units 13:18 16:28 08:10 Sodium 132 L (137-145) mmol/L Chloride 96 L (98-107) mmol/L BUN 77 H (9-20) mg/dL Creatinine 1.40 H (0.66-1.25) mg/dL Glucose 172 H (74-99) mg/dL Magnesium 3.1 H (1.6-2.3) mg/dL Troponin I 0.162 H* 0.135 H* (0.000-0.034) ng/mL Assessment and Plan Plan: Assessment: 1. Hypovolemic hyponatremia improving with normal saline. Sodium level 132 this morning. Urine sodium less than 20 and urine osmolality 328. TSH normal. 2. Acute kidney injury secondary to ATN secondary to hypotension and use of diuretics. UA fairly benign. Improving. Creatinine peaked at 1.9 at this admission and is stable at 1.4 today. 3. Hypokalemia from poor intake and diuretic use. Replaced. Better. 4. Chronic systolic CHF ejection fraction of 20 to 25%. Plan: Hep-Lock IV fluids. Maintain Farxiga. Encouraged oral intake. Maintain fluid restriction. Check a.m. cortisol level. Add 20 mg Lasix once daily.
[2024-01-20] MEDS: FUROSEMIDE 20 MG TAB PO SCH (12:36)
[2024-01-20] MEDS ORDERED: polyethylene glycoL 3350 17 GM POWD.PACK PO PRN (14:24)
--- NOTE | 2024-01-20 15:19 | P.PN ---
Subjective Progress Note Date: 01/20/24 HISTORY OF PRESENT ILLNESS: This is a 88-year-old male with a past medical history significant for atrial fibrillation, congestive heart failure, hypertension, and valvular heart disease. Patient follows in the office with Dr. Valenzuela. We have been asked to see the patient in consultation for elevated BNP. Patient examined at the bedside. Patient states he presented to the hospital with a chief complaint of chest pain. Patient states he has been having chest pain for weeks. He also reports associated shortness of breath. Patient was found to be hyponatremic upon admission to the hospital with a sodium level of 114. Repeat sodium this morning 120. DIAGNOSTICS: - EKG reveals atrial fibrillation with left bundle branch block. - Chest xray mild subsegmental atelectasis lateral left diaphragm. Cardiomegaly.. - Laboratory data: WBC 9.5. Hemoglobin 12.7. Platelet count 167. Sodium 120. Potassium 3.5. BUN 100. Creatinine 1.90. Magnesium 2.8. Troponin negative x 1. proBNP 21,800. - Current home cardiac medications include Eliquis 2.5 mg twice a day, Bumex 2 mg in the morning and 1 mg in the afternoon, Jardiance 10 mg daily, metoprolol tartrate 75 mg in the morning, 50 mg in the afternoon, and 75 mg in the evening, midodrine 5 mg 3 times a day, and metolazone 2.5 mg every Saturday. - Most recent echocardiogram obtained in December 2023 revealed ejection fraction 20 to 25% 01/18/2024 Patient examined this morning at bedside. Patient is complaining of back pain and constipation this morning. He currently denies chest pain or pressure. He denies shortness of breath. He remains on IV fluids. Sodium this morning is up to 126. Troponins negative x 2. 01/19/2024 Patient examined this morning. He is sitting on the side of the bed. Patient does complain of some chest discomfort that started this morning. He states he has been having these pains on and off. EKG performed revealing atrial fibrillation with left bundle branch block. He remains on IV fluids per nephrology. Sodium today 128. *Patient's troponin resulted at 0.159. Discussed with Dr. Talbot. Patient states his chest pain resolved on its own this morning and currently denies any further episodes of chest pain or pressure. Patient does have an allergy to Imdur. We will trend troponins. Continue with conservative management at this time. No plans for cardiac catheterization. 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 Starting to ease off now. Discomfort was around a 4-5. Patient remains in atrial fibrillation. Blood pressure 97/61, heart rate 102, pulse ox 100% on 3 L nasal cannula. Repeat blood work reveals BUN 77, c reatinine 1.4, potassium 4.7. Repeat EKG is a left bundle branch, atrial fibrillation. Patient's states that he is currently in palliative care and they are discussing possibly moving on to hospice care. Agreed that this would be appropriate. PHYSICAL EXAM: VITAL SIGNS: Reviewed. GENERAL: Well-developed in no acute distress. HEENT: Head is normocephalic. Pupils are equal, round. Sclerae anicteric. Mucous membranes of the mouth are moist. Neck supple. No JVD or thyromegaly LUNGS: Respirations even and unlabored. Lungs essentially clear to auscultation bilaterally. HEART: Irregular rate and rhythm. S1 and S2 heard. Systolic murmur noted ABDOMEN: Soft. Nondistended. Nontender. EXTREMITIES: Normal range of motion. No clubbing or cyanosis. Peripheral pulses intact. Patient with bilateral lower extremity wounds with gauze dressings noted NEUROLOGIC: Awake and alert. Oriented x 3. ASSESSMENT: Possible Non-ST elevated [place] Hyponatremia Bilateral lower extremity wounds Chronic heart failure with reduced EF, not fluid overloaded on examination Chronic kidney disease Nonischemic cardiomyopathy, ejection fraction 20-25% Longstanding persistent atrial fibrillation with controlled ventricular rate Valvular heart disease Hypertension PLAN: Continue current cardiac medications Continue metoprolol tartrate 50 mg twice daily with an additional dose at noon of 25 mg Patient has been started on oral Lasix 20 mg daily by nephrology Midodrine changed to as needed for hypotension with systolic blood pressure less than 80. Nephrology following for hyponatremia. Further recommendations pending patient course Nurse practitioner note has been reviewed by physician. Signing provider agrees with the documented findings, assessment, and plan of care documented by DONKEY DOCTOR as a scribe. Objective - Vital Signs Vital signs: Vital Signs Temp 97.6 F 01/20/24 07:55 Pulse 102 H 01/20/24 08:50 Resp 20 01/20/24 10:03 BP 97/61 01/20/24 08:50 Pulse Ox 100 01/20/24 10:03 FiO2 Intake & Output 01/19/24 01/20/24 01/20/24 18:59 06:59 18:59 Intake Total 598 480 Output Total 400 Balance 198 480 Weight 103.6 kg Intake: Oral 598 480 Output: Urine 400 Other: Voiding Method External Catheter External Catheter External Catheter # Bowel Movements 1 - Labs CBC & Chem 7: 01/18/24 07:13 01/20/24 08:10 Labs: Abnormal Lab Results - Last 24 Hours (Table) 01/19/24 01/19/24 01/19/24 Range/Units 08:57 13:18 16:28 Sodium (137-145) mmol/L Chloride (98-107) mmol/L BUN (9-20) mg/dL Creatinine (0.66-1.25) mg/dL Glucose (74-99) mg/dL Magnesium (1.6-2.3) mg/dL Troponin I 0.159 H* 0.162 H* 0.135 H* (0.000-0.034) ng/mL 01/20/24 Range/Units 08:10 Sodium 132 L (137-145) mmol/L Chloride 96 L (98-107) mmol/L BUN 77 H (9-20) mg/dL Creatinine 1.40 H (0.66-1.25) mg/dL Glucose 172 H (74-99) mg/dL Magnesium 3.1 H (1.6-2.3) mg/dL Troponin I (0.000-0.034) ng/mL
[2024-01-20] MEDS: METOPROLOL TARTRATE 50 MG TAB PO SCH (19:57)
[2024-01-21 07:51] LABS: Basophils # (A) 0.1 k/uL (0-0.2); Basophils % (A) 1 %; Eosinophils # (A) 0.3 k/uL (0-0.7); Eosinophils % (A) 4 %; HCT 39.3 % (39.0-53.0); HGB 12.3 gm/dL (13.0-17.5); Lymphocytes # (A) 1.3 k/uL (1.0-4.8); Lymphocytes % (A) 18 %; MCH 32.3 pg (25.0-35.0); MCHC 31.4 g/dL (31.0-37.0); Macrocytosis Slight; Mean Platelet Volume 8.6; Monocytes # (A) 0.4 k/uL (0-1.0); Monocytes % (A) 5 %; Neutrophils # (A) 5.2 k/uL (1.3-7.7); Neutrophils % (A) 71 %; Platelet Count 177 k/uL (150-450); RBC 3.82 m/uL (4.30-5.90); RDW 13.8 % (11.5-15.5); WBC 7.3 k/uL (3.8-10.6)
[2024-01-21 08:16] LABS: African American GFR (CKD) 48 (>60 ml/min/1.73 sqM); Anion Gap 2 mmol/L; Blood Urea Nitrogen 75 mg/dL (9-20); Calcium 8.5 mg/dL (8.4-10.2); Carbon Dioxide 35 mmol/L (22-30); Chloride 96 mmol/L (98-107); Glucose 99 mg/dL (74-99); Non-African American GFR(CKD) 41 (>60 ml/min/1.73 sqM); Potassium 4.3 mmol/L (3.5-5.1); Sodium 133 mmol/L (137-145)
[2024-01-21 11:36] LABS: Glucose,Whole Blood 134 mg/dL (70-110)
--- NOTE | 2024-01-21 13:06 | P.PN ---
Subjective Patient is seen in follow-up for hyponatremia and acute kidney injury on chronic kidney disease. Sodium level improving. Renal function stable. Oral intake fair. Denies vomiting or diarrhea. No chest pain or shortness of breath. Vital signs are stable. General: No acute distress. HEENT: Head exam is unremarkable. LUNGS: No audible rhonchi or wheezes. HEART: Rate and Rhythm are regular. ABDOMEN: Nontender. EXTREMITITES: Trace edema. No drainage. Objective - Vital Signs Vital signs: Vital Signs Temp 98.0 F 01/21/24 08:18 Pulse 87 01/21/24 11:20 Resp 20 01/21/24 11:20 BP 96/60 01/21/24 11:20 Pulse Ox 97 01/21/24 11:20 FiO2 Intake & Output 01/20/24 01/21/24 01/21/24 18:59 06:59 18:59 Intake Total 658 118 Output Total 1050 750 Balance -1050 -92 118 Weight 103.5 kg Intake: Oral 658 118 Output: Urine 1050 750 Other: Voiding Method External Catheter External Catheter External Catheter - Labs CBC & Chem 7: 01/21/24 07:21 01/21/24 07:21 Labs: Abnormal Lab Results - Last 24 Hours (Table) 01/21/24 01/21/24 01/21/24 Range/Units 07:21 07:21 11:34 RBC 3.82 L (4.30-5.90) m/uL Hgb 12.3 L (13.0-17.5) gm/dL MCV 103.0 H (80.0-100.0) fL Sodium 133 L (137-145) mmol/L Chloride 96 L (98-107) mmol/L Carbon Dioxide 35 H (22-30) mmol/L BUN 75 H (9-20) mg/dL Creatinine 1.51 H (0.66-1.25) mg/dL POC Glucose (mg/dL) 134 H (70-110) mg/dL Assessment and Plan Plan: Assessment: 1. Hypovolemic hyponatremia improving with normal saline. Now hypervolemic. On Lasix. Sodium level 133 this morning. Urine sodium less than 20 and urine osmolality 328. TSH normal. 2. Acute kidney injury secondary to ATN secondary to hypotension and use of diuretics. UA fairly benign. Improving. Creatinine peaked at 1.9 at this admission and is stable at 1.51 today. 3. Hypokalemia from poor intake and diuretic use. Replaced. Better. 4. Chronic systolic CHF ejection fraction of 20 to 25%. Plan: Maintain Farxiga and Lasix. Encouraged oral intake. Maintain fluid restriction. Follow-up a.m. cortisol level. Repeat BMP and magnesium level 2 to 3 days postdischarge. Follow-up outpatient in 1 week.
--- NOTE | 2024-01-21 13:39 | P.PN ---
Subjective Progress Note Date: 01/21/24 HISTORY OF PRESENT ILLNESS: This is a 88-year-old male with a past medical history significant for atrial fibrillation, congestive heart failure, hypertension, and valvular heart disease. Patient follows in the office with Dr. Valenzuela. We have been asked to see the patient in consultation for elevated BNP. Patient examined at the bedside. Patient states he presented to the hospital with a chief complaint of chest pain. Patient states he has been having chest pain for weeks. He also reports associated shortness of breath. Patient was found to be hyponatremic upon admission to the hospital with a sodium level of 114. Repeat sodium this morning 120. DIAGNOSTICS: - EKG reveals atrial fibrillation with left bundle branch block. - Chest xray mild subsegmental atelectasis lateral left diaphragm. Cardiomegaly.. - Laboratory data: WBC 9.5. Hemoglobin 12.7. Platelet count 167. Sodium 120. Potassium 3.5. BUN 100. Creatinine 1.90. Magnesium 2.8. Troponin negative x 1. proBNP 21,800. - Current home cardiac medications include Eliquis 2.5 mg twice a day, Bumex 2 mg in the morning and 1 mg in the afternoon, Jardiance 10 mg daily, metoprolol tartrate 75 mg in the morning, 50 mg in the afternoon, and 75 mg in the evening, midodrine 5 mg 3 times a day, and metolazone 2.5 mg every Saturday. - Most recent echocardiogram obtained in December 2023 revealed ejection fraction 20 to 25% 01/18/2024 Patient examined this morning at bedside. Patient is complaining of back pain and constipation this morning. He currently denies chest pain or pressure. He denies shortness of breath. He remains on IV fluids. Sodium this morning is up to 126. Troponins negative x 2. 01/19/2024 Patient examined this morning. He is sitting on the side of the bed. Patient does complain of some chest discomfort that started this morning. He states he has been having these pains on and off. EKG performed revealing atrial fibrillation with left bundle branch block. He remains on IV fluids per nephrology. Sodium today 128. *Patient's troponin resulted at 0.159. Discussed with Dr. Talbot. Patient states his chest pain resolved on its own this morning and currently denies any further episodes of chest pain or pressure. Patient does have an allergy to Imdur. We will trend troponins. Continue with conservative management at this time. No plans for cardiac catheterization. 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 Starting to ease off now. Discomfort was around a 4-5. Patient remains in atrial fibrillation. Blood pressure 97/61, heart rate 102, pulse ox 100% on 3 L nasal cannula. Repeat blood work reveals BUN 77, c reatinine 1.4, potassium 4.7. Repeat EKG is a left bundle branch, atrial fibrillation. Patient's states that he is currently in palliative care and they are discussing possibly moving on to hospice care. Agreed that this would be appropriate. 01/20 Patient states that his breathing is better today. We increased metoprolol to tartrate 50 mg twice daily and added a noon dose of 25 mg yesterday. He is currently maintained on oral Lasix 20 mg daily per nephrology. Yesterday we also change midodrine to less frequent and as needed for systolic blood pressure less than 80. Blood pressure 99/65, heart rate 101, pulse ox 98% on 2 L nasal cannula. Repeat blood work reveals hemoglobin 12.3. BUN 75 and creatinine 1.51. PHYSICAL EXAM: VITAL SIGNS: Reviewed. GENERAL: Well-developed in no acute distress. HEENT: Head is normocephalic. Pupils are equal, round. Sclerae anicteric. Mucous membranes of the mouth are moist. Neck supple. No JVD or thyromegaly LUNGS: Respirations even and unlabored. Lungs essentially clear to auscultation bilaterally. HEART: Irregular rate and rhythm. S1 and S2 heard. Systolic murmur noted ABDOMEN: Soft. Nondistended. Nontender. EXTREMITIES: Normal range of motion. No clubbing or cyanosis. Peripheral pulses intact. Patient with bilateral lower extremity wounds with gauze dressings noted NEUROLOGIC: Awake and alert. Oriented x 3. ASSESSMENT: Possible Non-ST elevated [place] Hyponatremia Bilateral lower extremity wounds Chronic heart failure with reduced EF, not fluid overloaded on examination Chronic kidney disease Nonischemic cardiomyopathy, ejection fraction 20-25% Longstanding persistent atrial fibrillation with controlled ventricular rate Valvular heart disease Hypertension PLAN: Continue current cardiac medications Increase metoprolol tartrate to 50 mg 3 times daily Patient has been started on oral Lasix 20 mg daily by nephrology Continue midodrine changed to as needed for hypotension with systolic blood pressure less than 80. Nephrology following for hyponatremia. Further recommendations pending patient course Nurse practitioner note has been reviewed by physician. Signing provider agrees with the documented findings, assessment, and plan of care documented by TRAINING SPECIALIST as a scribe. Objective - Vital Signs Vital signs: Vital Signs Temp 98.0 F 01/21/24 08:18 Pulse 101 H 01/21/24 08:18 Resp 16 01/21/24 08:18 BP 99/65 01/21/24 08:18 Pulse Ox 98 01/21/24 08:18 FiO2 Intake & Output 01/20/24 01/21/24 01/21/24 18:59 06:59 18:59 Intake Total 658 118 Output Total 1050 750 Balance -1050 -92 118 Weight 103.5 kg Intake: Oral 658 118 Output: Urine 1050 750 Other: Voiding Method External Catheter External Catheter External Catheter - Labs CBC & Chem 7: 01/21/24 07:21 01/21/24 07:21 Labs: Abnormal Lab Results - Last 24 Hours (Table) 01/21/24 01/21/24 Range/Units 07:21 07:21 RBC 3.82 L (4.30-5.90) m/uL Hgb 12.3 L (13.0-17.5) gm/dL MCV 103.0 H (80.0-100.0) fL Sodium 133 L (137-145) mmol/L Chloride 96 L (98-107) mmol/L Carbon Dioxide 35 H (22-30) mmol/L BUN 75 H (9-20) mg/dL Creatinine 1.51 H (0.66-1.25) mg/dL
[2024-01-21] MEDS: METOPROLOL TARTRATE 50 MG TAB PO SCH (15:15)
--- NOTE | 2024-01-22 00:26 | P.PN ---
Subjective Progress Note Date: 01/20/24 Patient is a 88-year-old male with a past medical history of atrial flutter/fibrillation on anticoagulation Eliquis with history of ablation, chronic CHF, hypertension, osteoarthritis, BPH, obstructive sleep apnea not on CPAP and prior history of smoking presents to ER due to complaints of generalized weakness and shortness of breath. Patient states that he was started on Bumex and metolazone due to his worsening leg swelling. Patient was told by his primary care physician about 6 days ago that he has hypokalemia and should go to hospital. Patient was given potassium supplementation which he has been taking but he woke up this morning and felt very weak and thought he would come to ER. Patient was having leg swelling and shortness of breath at baseline. Also complaining of mild chest discomfort. Denies any dizziness or lightheadedness. No nausea vomiting abdominal pain or diarrhea. Chest x-ray showed mild subsegmental atelectasis lateral left hemidiaphragm. Cardiomegaly. EKG showed atrial fibrillation with aberrant conduction or ventricular premature complexes. Heart rate 89 Laboratory data showed WBC 8.7 hemoglobin 13.1 and platelets 182 Sodium 114 potassium 3.7 chloride 74 bicarb is 31 BUN 104 and creatinine 1.7 and blood sugar 119 and magnesium 2.8 proBNP 21,800 and troponin 0.012 01/17/2024 Patient is lying in the bed. Awake alert cooperative seems very weak. No compl aints of chest pain or worsening shortness of breath. Patient was started on IV hydration with normal saline. Sodium level improved to 120 today. Urine osmolality 328 and random sodium less than 20. No complaints of fever or chills. Diuretics on hold. Laboratory data showed WBC 9.5 hemoglobin 12.7 and platelets 167 sodium 120 potassium 3.5 chloride 79 bicarb is 34 BUN 100 and creatinine 1.9 and blood sugar 113. Urinalysis is negative for infection. Cardiology and nephrology is on board. 01/18/2024 Patient is resting in the bed. Awake alert and oriented x 3. Denied any complaints of chest pain or shortness of breath. Patient is on IV hydration with normal saline. No headache or dizziness or lightheadedness. No complaints of abdominal pain or nausea. Tolerating oral diet slowly. Laboratory data shows sodium level improved to 126. Potassium 3.1 chloride 85 bicarbonate 33 BUN 87 creatinine 1.43 and blood sugar 130. Patient is on normal saline at 50 cc/h. Also on anticoagulation with Eliquis. 01/19/2024 Patient is currently sitting in the chair. Awake alert and oriented x 3. Able to tolerate oral diet. No complaints of chest pain or shortness of breath. Patient remains on IV hydration with normal saline at 50 cc/h. Laboratory showed sodium level improved to 128 today. No nausea vomiting abdominal pain or diarrhea. No cough or sputum production. IV diuretics on hold. Patient did have chest pain this morning and troponin was ordered. EKG showed atrial fibrillation with left bundle branch block. Other laboratory data reviewed. 01/20/2024 Patient is currently sitting in a chair. Awake alert and oriented x 3. Currently requiring 2 L oxygen via nasal cannula. No complaints of chest pain or worsening shortness of breath. IV fluids have been on hold and patient was started on Lasix 20 mg daily. Nephrology is on board. Sodium level improved to 132 today. Still having leg swelling. Lower extremity wound care is being done. Afebrile. No nausea vomiting abdominal pain or diarrhea. Current medications reviewed. Objective - Vital Signs Vital signs: Vital Signs Temp 98.1 F 01/20/24 19:55 Pulse 76 01/20/24 19:55 Resp 16 01/20/24 19:55 BP 110/61 01/20/24 19:55 Pulse Ox 98 01/20/24 19:55 FiO2 Intake & Output 01/20/24 01/20/24 01/21/24 06:59 18:59 06:59 Intake Total 480 658 Output Total 1050 Balance 480 -1050 658 Weight 103.6 kg Intake: Oral 480 658 Output: Urine 1050 Other: Voiding Method External Catheter External Catheter External Catheter - Exam PHYSICAL EXAMINATION: Patient is lying in the bed,, no acute distress, awake alert and oriented.. HEENT: Normocephalic. Neck is supple. Pupils reactive. Nostrils clear. Oral cavity is moist. Neck reveals no JVD, carotid bruits, or thyromegaly. CHEST EXAMINATION: Trachea is central. Symmetrical expansion. Lung del angel clear to auscultation and percussion. CARDIAC: Normal S1, S2 with no gallops. Irregular rhythm. Systolic murmur. ABDOMEN: Soft. Bowel sounds normal. No organomegaly. No abdominal bruits. Extremities: Bilateral lower extremity trace edema. No clubbing or cyanosis Neurologically awake, alert, oriented x 2-3, with well-coordinated movements. No gross focal deficits noted Skin: No rash. Sacral stage II ulcer s. Psychiatric: Coperative. Nonsuicidal Musculoskeletal: No joint swelling or deformity. Normal range of motion. - Labs CBC & Chem 7: 01/21/24 07:21 01/21/24 07:21 Labs: Abnormal Lab Results - Last 24 Hours (Table) 01/20/24 Range/Units 08:10 Sodium 132 L (137-145) mmol/L Chloride 96 L (98-107) mmol/L BUN 77 H (9-20) mg/dL Creatinine 1.40 H (0.66-1.25) mg/dL Glucose 172 H (74-99) mg/dL Magnesium 3.1 H (1.6-2.3) mg/dL Assessment and Plan Assessment: Generalized weakness Severe hyponatremia with sodium level 114 on admission. Likely due to diuretic use. Improving. Chest pain ruled out ACS Bilateral lower extremity wounds and sacral decub ulcers stage II Chronic CHF with reduced ejection fraction Nonischemic cardiomyopathy ejection fraction 20 to 25% Atrial fibrillation chronic on anticoagulation with Eliquis. Prior history of fibrillation. Hypertension BPH Obstructive sleep apnea on CPAP GERD Prior history of smoking DVT prophylaxis. Patient is already on Eliquis Plan: IV fluids on hold today.. Sodium level improved to 126--128--132 today. Metolazone and Bumex is on hold. Patient was started on Lasix 20 mg daily. Replace electrolytes. Nephrology and cardiology is on board.. Continue to monitor respiratory status closely due to underlying CHF. wound care was consulted. Continue with dressing changes to lower extremities.. Prognosis guarded with multimedical problems and comorbid conditions. Discussed with family at bedside in detail. Time with Patient: Greater than 30
--- NOTE | 2024-01-22 00:28 | P.PN ---
Subjective Progress Note Date: 01/21/24 Patient is a 88-year-old male with a past medical history of atrial flutter/fibrillation on anticoagulation Eliquis with history of ablation, chronic CHF, hypertension, osteoarthritis, BPH, obstructive sleep apnea not on CPAP and prior history of smoking presents to ER due to complaints of generalized weakness and shortness of breath. Patient states that he was started on Bumex and metolazone due to his worsening leg swelling. Patient was told by his primary care physician about 6 days ago that he has hypokalemia and should go to hospital. Patient was given potassium supplementation which he has been taking but he woke up this morning and felt very weak and thought he would come to ER. Patient was having leg swelling and shortness of breath at baseline. Also complaining of mild chest discomfort. Denies any dizziness or lightheadedness. No nausea vomiting abdominal pain or diarrhea. Chest x-ray showed mild subsegmental atelectasis lateral left hemidiaphragm. Cardiomegaly. EKG showed atrial fibrillation with aberrant conduction or ventricular premature complexes. Heart rate 89 Laboratory data showed WBC 8.7 hemoglobin 13.1 and platelets 182 Sodium 114 potassium 3.7 chloride 74 bicarb is 31 BUN 104 and creatinine 1.7 and blood sugar 119 and magnesium 2.8 proBNP 21,800 and troponin 0.012 01/17/2024 Patient is lying in the bed. Awake alert cooperative seems very weak. No compl aints of chest pain or worsening shortness of breath. Patient was started on IV hydration with normal saline. Sodium level improved to 120 today. Urine osmolality 328 and random sodium less than 20. No complaints of fever or chills. Diuretics on hold. Laboratory data showed WBC 9.5 hemoglobin 12.7 and platelets 167 sodium 120 potassium 3.5 chloride 79 bicarb is 34 BUN 100 and creatinine 1.9 and blood sugar 113. Urinalysis is negative for infection. Cardiology and nephrology is on board. 01/18/2024 Patient is resting in the bed. Awake alert and oriented x 3. Denied any complaints of chest pain or shortness of breath. Patient is on IV hydration with normal saline. No headache or dizziness or lightheadedness. No complaints of abdominal pain or nausea. Tolerating oral diet slowly. Laboratory data shows sodium level improved to 126. Potassium 3.1 chloride 85 bicarbonate 33 BUN 87 creatinine 1.43 and blood sugar 130. Patient is on normal saline at 50 cc/h. Also on anticoagulation with Eliquis. 01/19/2024 Patient is currently sitting in the chair. Awake alert and oriented x 3. Able to tolerate oral diet. No complaints of chest pain or shortness of breath. Patient remains on IV hydration with normal saline at 50 cc/h. Laboratory showed sodium level improved to 128 today. No nausea vomiting abdominal pain or diarrhea. No cough or sputum production. IV diuretics on hold. Patient did have chest pain this morning and troponin was ordered. EKG showed atrial fibrillation with left bundle branch block. Other laboratory data reviewed. 01/20/2024 Patient is currently sitting in a chair. Awake alert and oriented x 3. Currently requiring 2 L oxygen via nasal cannula. No complaints of chest pain or worsening shortness of breath. IV fluids have been on hold and patient was started on Lasix 20 mg daily. Nephrology is on board. Sodium level improved to 132 today. Still having leg swelling. Lower extremity wound care is being done. Afebrile. No nausea vomiting abdominal pain or diarrhea. 2023 Patient is currently lying in the bed. Awake alert and oriented x 3. No complaints of chest pain. Shortness of breath is stable. Still having bilateral lower extremity swelling. Continued o on oral Lasix. Requiring 2 L oxygen via nasal cannula. Patient is not on home oxygen at. Afebrile. No cough or sputum production. Laboratory data showed sodium 133 potassium 4.3 chloride 96 bicarb is 35 BUN 75 creatinine 1.51 and blood sugar is 99. Cortisol level is 16.5. Nephrology is on board. Current medications reviewed. Objective - Vital Signs Vital signs: Vital Signs Temp 97.6 F 01/21/24 19:57 Pulse 104 H 01/21/24 19:57 Resp 16 01/21/24 19:57 BP 105/60 01/21/24 19:57 Pulse Ox 99 01/21/24 19:57 FiO2 Intake & Output 01/21/24 01/21/24 01/22/24 06:59 18:59 06:59 Intake Total 658 834 Output Total 750 625 Balance -92 209 Weight 103.5 kg Intake: Oral 658 834 Output: Urine 750 625 Other: Voiding Method External Catheter External Catheter External Catheter # Bowel Movements 1 - Exam PHYSICAL EXAMINATION: Patient is lying in the bed,, no acute distress, awake alert and oriented.. HEENT: Normocephalic. Neck is supple. Pupils reactive. Nostrils clear. Oral cavity is moist. Neck reveals no JVD, carotid bruits, or thyromegaly. CHEST EXAMINATION: Trachea is central. Symmetrical expansion. Lung del angel clear to auscultation and percussion. CARDIAC: Normal S1, S2 with no gallops. Irregular rhythm. Systolic murmur. ABDOMEN: Soft. Bowel sounds normal. No organomegaly. No abdominal bruits. Extremities: Bilateral lower extremity trace edema. No clubbing or cyanosis Neurologically awake, alert, oriented x 2-3, with well-coordinated movements. No gross focal deficits noted Skin: No rash. Sacral stage II ulcer s. Psychiatric: Coperative. Nonsuicidal Musculoskeletal: No joint swelling or deformity. Normal range of motion. - Labs CBC & Chem 7: 01/21/24 07:21 01/21/24 07:21 Labs: Abnormal Lab Results - Last 24 Hours (Table) 01/21/24 01/21/24 01/21/24 Range/Units 07:21 07:21 11:34 RBC 3.82 L (4.30-5.90) m/uL Hgb 12.3 L (13.0-17.5) gm/dL MCV 103.0 H (80.0-100.0) fL Sodium 133 L (137-145) mmol/L Chloride 96 L (98-107) mmol/L Carbon Dioxide 35 H (22-30) mmol/L BUN 75 H (9-20) mg/dL Creatinine 1.51 H (0.66-1.25) mg/dL POC Glucose (mg/dL) 134 H (70-110) mg/dL Assessment and Plan Assessment: Generalized weakness Severe hyponatremia with sodium level 114 on admission. Likely due to diuretic use. Improving. Chest pain ruled out ACS Bilateral lower extremity wounds and sacral decub ulcers stage II Chronic CHF with reduced ejection fraction Nonischemic cardiomyopathy ejection fraction 20 to 25% Atrial fibrillation chronic on anticoagulation with Eliquis. Prior history of fibrillation. Hypertension BPH Obstructive sleep apnea on CPAP GERD Prior history of smoking DVT prophylaxis. Patient is already on Eliquis Plan: IV fluids on hold today.. Sodium level improved to 126--128--132--133 today. Metolazone and Bumex is on hold. Patient was started on Lasix 20 mg daily. Replace electrolytes. Nephrology and cardiology is on board.. Continue to monitor respiratory status closely due to underlying CHF. wound care was consulted. Continue with dressing changes to lower extremities. PT OT. Prognosis guarded with multimedical problems and comorbid conditions. Discussed with family at bedside in detail. Due to his advanced clinical status, family would like to discuss with palliative care and possible hospice care at home. Time with Patient: Greater than 30
[2024-01-22 08:19] VITALS: BP 98/55; PULSE 112; RESP 16; TEMP 97.6
[2024-01-22 08:43] LABS: Basophils # (A) 0.1 k/uL (0-0.2); Basophils % (A) 1 %; Eosinophils # (A) 0.2 k/uL (0-0.7); Eosinophils % (A) 3 %; HCT 40.8 % (39.0-53.0); HGB 12.6 gm/dL (13.0-17.5); Lymphocytes # (A) 1.1 k/uL (1.0-4.8); Lymphocytes % (A) 14 %; MCH 32.3 pg (25.0-35.0); MCHC 30.9 g/dL (31.0-37.0); MCV 104.6 fL (80.0-100.0); Macrocytosis Moderate; Mean Platelet Volume 8.5; Monocytes # (A) 0.4 k/uL (0-1.0); Monocytes % (A) 5 %; Neutrophils # (A) 6.3 k/uL (1.3-7.7); Neutrophils % (A) 77 %; Platelet Count 193 k/uL (150-450); RDW 13.8 % (11.5-15.5); WBC 8.2 k/uL (3.8-10.6)
[2024-01-22 09:15] LABS: African American GFR (CKD) 45 (>60 ml/min/1.73 sqM); Anion Gap 5 mmol/L; Blood Urea Nitrogen 92 mg/dL (9-20); Calcium 8.7 mg/dL (8.4-10.2); Carbon Dioxide 31 mmol/L (22-30); Chloride 98 mmol/L (98-107); Glucose 120 mg/dL (74-99); Non-African American GFR(CKD) 39 (>60 ml/min/1.73 sqM); Potassium 4.5 mmol/L (3.5-5.1); Sodium 134 mmol/L (137-145)
--- NOTE | 2024-01-22 11:08 | P.PN ---
Subjective Progress Note Date: 01/22/24 HISTORY OF PRESENT ILLNESS: This is a 88-year-old male with a past medical history significant for atrial fibrillation, congestive heart failure, hypertension, and valvular heart disease. Patient follows in the office with Dr. Valenzuela. We have been asked to see the patient in consultation for elevated BNP. Patient examined at the bedside. Patient states he presented to the hospital with a chief complaint of chest pain. Patient states he has been having chest pain for weeks. He also reports associated shortness of breath. Patient was found to be hyponatremic upon admission to the hospital with a sodium level of 114. Repeat sodium this morning 120. DIAGNOSTICS: - EKG reveals atrial fibrillation with left bundle branch block. - Chest xray mild subsegmental atelectasis lateral left diaphragm. Cardiomegaly.. - Laboratory data: WBC 9.5. Hemoglobin 12.7. Platelet count 167. Sodium 120. Potassium 3.5. BUN 100. Creatinine 1.90. Magnesium 2.8. Troponin negative x 1. proBNP 21,800. - Current home cardiac medications include Eliquis 2.5 mg twice a day, Bumex 2 mg in the morning and 1 mg in the afternoon, Jardiance 10 mg daily, metoprolol tartrate 75 mg in the morning, 50 mg in the afternoon, and 75 mg in the evening, midodrine 5 mg 3 times a day, and metolazone 2.5 mg every Saturday. - Most recent echocardiogram obtained in December 2023 revealed ejection fraction 20 to 25% 01/18/2024 Patient examined this morning at bedside. Patient is complaining of back pain and constipation this morning. He currently denies chest pain or pressure. He denies shortness of breath. He remains on IV fluids. Sodium this morning is up to 126. Troponins negative x 2. 01/19/2024 Patient examined this morning. He is sitting on the side of the bed. Patient does complain of some chest discomfort that started this morning. He states he has been having these pains on and off. EKG performed revealing atrial fibrillation with left bundle branch block. He remains on IV fluids per nephrology. Sodium today 128. *Patient's troponin resulted at 0.159. Discussed with Dr. Talbot. Patient states his chest pain resolved on its own this morning and currently denies any further episodes of chest pain or pressure. Patient does have an allergy to Imdur. We will trend troponins. Continue with conservative management at this time. No plans for cardiac catheterization. 01/19 Patient developed shortness of breath and chest pain during the superintendent pier and IV fluids were discontinued. Starting to ease off now. Discomfort was around a 4-5. Patient remains in atrial fibrillation. Blood pressure 97/61, heart rate 102, pulse ox 100% on 3 L nasal cannula. Repeat blood work reveals BUN 77, c reatinine 1.4, potassium 4.7. Repeat EKG is a left bundle branch, atrial fibrillation. Patient's states that he is currently in palliative care and they are discussing possibly moving on to hospice care. Agreed that this would be appropriate. 01/20 Patient states that his breathing is better today. We increased metoprolol to tartrate 50 mg twice daily and added a noon dose of 25 mg yesterday. He is currently maintained on oral Lasix 20 mg daily per nephrology. Yesterday we also change midodrine to less frequent and as needed for systolic blood pressure less than 80. Blood pressure 99/65, heart rate 101, pulse ox 98% on 2 L nasal cannula. Repeat blood work reveals hemoglobin 12.3. BUN 75 and creatinine 1.51. 01/21 Patient is seen today in follow-up. He states that he was not able to sleep. His heart rate is running 106, blood pressure 98/55, pulse ox 99% on 2 L nasal cannula. Repeat blood work reveals hemoglobin 12.6. BUN 92 and creatinine 1.59. PHYSICAL EXAM: VITAL SIGNS: Reviewed. GENERAL: Well-developed in no acute distress. HEENT: Head is normocephalic. Pupils are equal, round. Sclerae anicteric. Mucous membranes of the mouth are moist. Neck supple. No JVD or thyromegaly LUNGS: Respirations even and unlabored. Lungs essentially clear to auscultation bilaterally. HEART: Irregular rate and rhythm. S1 and S2 heard. Systolic murmur noted ABDOMEN: Soft. Nondistended. Nontender. EXTREMITIES: Normal range of motion. No clubbing or cyanosis. Peripheral p ulses intact. Patient with bilateral lower extremity wounds with gauze dressings noted NEUROLOGIC: Awake and alert. Oriented x 3. ASSESSMENT: Possible Non-ST elevated [place] Hyponatremia Bilateral lower extremity wounds Chronic heart failure with reduced EF, not fluid overloaded on examination Chronic kidney disease Nonischemic cardiomyopathy, ejection fraction 20-25% Longstanding persistent atrial fibrillation with controlled ventricular rate Valvular heart disease Hypertension PLAN: Continue current cardiac medications Increase metoprolol tartrate to 50 mg 3 times daily Patient has been started on oral Lasix 20 mg daily by nephrology Continue midodrine changed to as needed for hypotension with systolic blood pressure less than 80. Nephrology following for hyponatremia. Consider hospice care as was previously discussed with patient's . Further recommendations pending patient course Nurse practitioner note has been reviewed by physician. Signing provider agrees with the documented findings, assessment, and plan of care documented by FOOD BEVERAGE ATTENDANT as a scribe. Objective - Vital Signs Vital signs: Vital Signs Temp 97.6 F 01/22/24 08:14 Pulse 112 H 01/22/24 08:14 Resp 16 01/22/24 08:14 BP 98/55 01/22/24 08:14 Pulse Ox 99 01/22/24 08:16 FiO2 Intake & Output 01/21/24 01/22/24 01/22/24 18:59 06:59 18:59 Intake Total 834 360 Output Total 625 650 Balance 209 -290 Weight 104.2 kg Intake: Oral 834 360 Output: Urine 625 650 Other: Voiding Method External Catheter External Catheter External Catheter # Bowel Movements 1 - Labs CBC & Chem 7: 01/22/24 07:58 01/22/24 07:58 Labs: Abnormal Lab Results - Last 24 Hours (Table) 01/21/24 01/22/24 01/22/24 Range/Units 11:34 07:58 07:58 RBC 3.90 L (4.30-5.90) m/uL Hgb 12.6 L (13.0-17.5) gm/dL MCV 104.6 H (80.0-100.0) fL MCHC 30.9 L (31.0-37.0) g/dL Sodium 134 L (137-145) mmol/L Carbon Dioxide 31 H (22-30) mmol/L BUN 92 H (9-20) mg/dL Creatinine 1.59 H (0.66-1.25) mg/dL Glucose 120 H (74-99) mg/dL POC Glucose (mg/dL) 134 H (70-110) mg/dL
--- NOTE | 2024-01-22 11:12 | P.PN ---
Subjective Patient is seen in follow-up for hyponatremia and acute kidney injury on chronic kidney disease. Sodium level improving. Renal function stable. Oral intake fair. Denies vomiting or diarrhea. No chest pain or shortness of breath. Vital signs are stable. General: No acute distress. HEENT: Head exam is unremarkable. LUNGS: No audible rhonchi or wheezes. HEART: Rate and Rhythm are regular. ABDOMEN: Nontender. EXTREMITITES: Trace edema. No drainage. Objective - Vital Signs Vital signs: Vital Signs Temp 97.6 F 01/22/24 08:14 Pulse 112 H 01/22/24 08:14 Resp 16 01/22/24 08:14 BP 98/55 01/22/24 08:14 Pulse Ox 99 01/22/24 08:16 FiO2 Intake & Output 01/21/24 01/22/24 01/22/24 18:59 06:59 18:59 Intake Total 834 360 Output Total 625 650 Balance 209 -290 Weight 104.2 kg Intake: Oral 834 360 Output: Urine 625 650 Other: Voiding Method External Catheter External Catheter External Catheter # Bowel Movements 1 - Labs CBC & Chem 7: 01/22/24 07:58 01/22/24 07:58 Labs: Abnormal Lab Results - Last 24 Hours (Table) 01/21/24 01/22/24 01/22/24 Range/Units 11:34 07:58 07:58 RBC 3.90 L (4.30-5.90) m/uL Hgb 12.6 L (13.0-17.5) gm/dL MCV 104.6 H (80.0-100.0) fL MCHC 30.9 L (31.0-37.0) g/dL Sodium 134 L (137-145) mmol/L Carbon Dioxide 31 H (22-30) mmol/L BUN 92 H (9-20) mg/dL Creatinine 1.59 H (0.66-1.25) mg/dL Glucose 120 H (74-99) mg/dL POC Glucose (mg/dL) 134 H (70-110) mg/dL Assessment and Plan Plan: Assessment: 1. Hypovolemic hyponatremia improving with normal saline. Now hypervolemic. On Lasix. Sodium level 134 this morning. Urine sodium less than 20 and urine osmolality 328. TSH normal. 2. Acute kidney injury secondary to ATN secondary to hypotension and use of diuretics. UA fairly benign. Improving. Creatinine peaked at 1.9 at this admission and is stable at 1.59 today. 3. Hypokalemia from poor intake and diuretic use. Replaced. Better. 4. Chronic systolic CHF ejection fraction of 20 to 25%. Plan: Maintain Farxiga and Lasix. Encouraged oral intake. Maintain fluid restriction. Cortisol levels not low. Repeat BMP and magnesium level 2 to 3 days postdischarge. Follow-up outpatient in 1 week.
--- NOTE | 2024-01-29 06:31 | P.DS ---
Providers Date of admission: 01/16/24 14:00 Expected date of discharge: 01/22/24 Attending physician: Kathleen Jose Consults: 01/16/24 14:03 Consult Physician Urgent Consulting Provider: [facility] Consult Reason/Comments: Elevated BNP, hyponatremia Do you want consulting provider notified?: Yes 01/16/24 16:13 Consult Physician Routine Consulting Provider: Luciana Castañeda Consult Reason/Comments: Hyponatremia Do you want consulting provider notified?: Yes Primary care physician: Nehemiah Mosqueda Hospital Course: Final diagnosis Generalized weakness Severe hyponatremia with sodium level 114 on admission. Likely due to diuretic use. Improving. Chest pain ruled out ACS Bilateral lower extremity wounds and sacral decub ulcers stage II Chronic CHF with reduced ejection fraction Nonischemic cardiomyopathy ejection fraction 20 to 25% Atrial fibrillation chronic on anticoagulation with Eliquis. Prior history of fibrillation. Hypertension BPH Obstructive sleep apnea on CPAP GERD Prior history of smoking DVT prophylaxis. Patient is already on Eliquis Obesity with a BMI of 31.2 No code Discharge disposition Patient is being discharged in a stable condition with guarded prognosis to home with hospice. Patient will follow-up with Dr. Mosqueda in the outpatient setting upon discharge. Patient is to continue with current medications and outpatient follow-up with cardiology as scheduled. Total time taken is greater than 35 minutes. Hospital course This is a 88-year-old male who was recently admitted with generalized weakness and increased shortness of breath with severe hyponatremia being closely monitored. Patient on number of diuretics and sodium was found to be 114 on admission. Diuretics on hold other than Lasix which has been started at low- dose and sodium is improved at 133. Patient being evaluated by cardiology and other consultations and family has discussed further with hospice and would like to be going home on hospice. Patient has been cleared by consultations recommending outpatient follow-up with primary care provider as well. Please refer to other consult notes for further HPI. Currently no reports of chest pain, shortness of breath, or palpitations. Patient is afebrile. No reports of nausea or vomiting and patient is tolerating diet. Patient will be going home with [facility]. Overall guarded prognosis given significant comorbidities. Physical exam: Gen: This is a 88-year-old male who is awake, alert and oriented x 3, well- developed, elderly appearing, ill-appearing HEENT: Head is atraumatic, normocephalic. Pupils equal, round. Sclerae is anicteric. NECK: Supple. No JVD. No lymphadenopathy. No thyromegaly. LUNGS: Diminished breath sounds bilaterally with coarse scattered rhonchi and faint crackles noted. No intercostal retractions. HEART: S1, S2 are muffled ABDOMEN: Soft. Obese bowel sounds are present. No masses. No tenderness. EXTREMITIES: No pedal edema. No calf tenderness. Mild lower extremity edema noted NEUROLOGICAL: Patient is awake, alert and oriented x3. Cranial nerves 2 through 12 are grossly intact. Please refer to medication reconciliation sheet for a list of medications. The impression and plan of care has been dictated by Nichole So, Nurse Practitioner as directed. Dr. Tori MD I have performed a history and examination and MDM of this patient, discussed the same with the dictator, and agree with the dictator's assessment and plan as written ,documented as a scribe. Based on total visit time, I have performed more than 50% of the visit. Patient Condition at Discharge: Fair Plan - Discharge Summary Discharge Rx Participant: No New Discharge Prescriptions: New Furosemide [Lasix] 20 mg PO DAILY #30 tab HYDROcodone/APAP 5-325MG [[place] 5-325] 1 each PO Q6HR PRN tab PRN Reason: Pain Acetaminophen Tab [Tylenol] 650 mg PO Q6HR PRN tab PRN Reason: Fever And/ Or Pain Aspirin 81 mg PO DAILY #30 tab Dapagliflozin Propanediol [Farxiga] 5 mg PO DAILY #30 tab Metoprolol Tartrate [Lopressor] 50 mg PO TID #90 tab polyethylene glycoL 3350 [Miralax] 17 gm PO DAILY PRN packet PRN Reason: Constipation guaiFENesin [Mucinex] 600 mg PO Q12HR PRN tab PRN Reason: Congestion Continue Tamsulosin HCl [Flomax] 0.4 mg PO BID@0700,1800 Cholecalciferol (Vitamin D3) [Vitamin D3 (125 MCG = 5,000 IU)] 125 mcg PO DAILY Levothyroxine Sodium [Synthroid] 88 mcg PO DAILY@0500 Sennosides/Docusate Sodium [Alexa Colace] 1 tab PO DAILY Multivit-Min/FA/Lycopen/Lutein [Centrum Silver Tablet] 1 tab PO DAILY Midodrine [ProAmatine] 5 mg PO TID@0700,1300,1800 Nitroglycerin Sl Tabs [Nitrostat] 0.4 mg SL Q5M PRN PRN Reason: Chest Pain Melatonin 6 mg PO HS Apixaban [Eliquis] 2.5 mg PO BID@0700,1800 Ondansetron Odt [Zofran ODT] 4 mg PO Q6H PRN PRN Reason: Nausea Discontinued Empagliflozin [Jardiance] 10 mg PO DAILY metOLazone 2.5 mg PO MO Metoprolol Tartrate [Lopressor] 75 mg PO BID@0700,1800 Azithromycin [Zithromax Z Pack] See Taper PO DAILY Bumetanide [Bumex] 1 mg PO DAILY@1400 Metoprolol Tartrate [Lopressor] 50 mg PO DAILY@1400 Potassium Chloride [Klor-Con 10 ER] See Taper PO DIRECTED Bumetanide [BUMEX] 2 mg PO DAILY Discharge Medication List Tamsulosin HCl [Flomax] 0.4 mg PO BID@0700,1800 07/12/14 [History] Multivit-Min/FA/Lycopen/Lutein [Centrum Silver Tablet] 1 tab PO DAILY 04/27/21 [History] Cholecalciferol (Vitamin D3) [Vitamin D3 (125 MCG = 5,000 IU)] 125 mcg PO DAILY 08/13/22 [History] Midodrine [ProAmatine] 5 mg PO TID@0700,1300,1800 08/13/22 [History] Apixaban [Eliquis] 2.5 mg PO BID@0700,1800 11/02/23 [History] Levothyroxine Sodium [Synthroid] 88 mcg PO DAILY@0500 11/02/23 [History] Melatonin 6 mg PO HS 11/02/23 [History] Nitroglycerin Sl Tabs [Nitrostat] 0.4 mg SL Q5M PRN 11/02/23 [History] Ondansetron Odt [Zofran ODT] 4 mg PO Q6H PRN 01/16/24 [History] Sennosides/Docusate Sodium [Alexa Colace] 1 tab PO DAILY 01/16/24 [History] Acetaminophen Tab [Tylenol] 650 mg PO Q6HR PRN tab 01/22/24 [Rx] Aspirin 81 mg PO DAILY #30 tab 01/22/24 [Rx] Dapagliflozin Propanediol [Farxiga] 5 mg PO DAILY #30 tab 01/22/24 [Rx] Furosemide [Lasix] 20 mg PO DAILY #30 tab 01/22/24 [Rx] HYDROcodone/APAP 5-325MG [[place] 5-325] 1 each PO Q6HR PRN tab 01/22/24 [Rx] Metoprolol Tartrate [Lopressor] 50 mg PO TID #90 tab 01/22/24 [Rx] guaiFENesin [Mucinex] 600 mg PO Q12HR PRN tab 01/22/24 [Rx] polyethylene glycoL 3350 [Miralax] 17 gm PO DAILY PRN packet 01/22/24 [Rx] Follow up Appointment(s)/Referral(s): Nehemiah Mosqueda DO [Primary Care Provider] - 1-2 days Activity/Diet/Wound Care/Special Instructions: Activity limited until follow-up Follow-up with primary care provider on discharge Patient will continue with [facility] services at home Continue current diet Continue current cardiac medications Discharge Disposition: HOME WITH HOSPICE
--- NOTE | 2024-01-31 07:09 | CDI ---
Documentation Clarification Form Date: 01/31/24 From: Beth Frankel Admit Date: 01/16/2024 02:00:00 PM Patient Name: Colin Irizarry Visit Number: [id number] Discharge Date: 01/22/2024 01:06:00 PM ATTENTION: The Clinical Documentation Specialists (CDI) and [facility] Coding Staff appreciate your assistance in clarifying documentation. Please respond to the clarification below the line at the bottom and electronically sign. The CDI & [facility] Coding staff will review the response and follow-up if needed. Please note: Queries are made part of the Legal Health Record. If you have any questions, please contact the author of this message via ITS. Doctor Nathalie Valle, Dr Lima documents possible Non-ST elevated [place] in his 01/19, 01/20 & 01/21 progress notes, which may lack sufficient clinical evidence/support in the medical record. Additional clarification is requested. History/Risk Factors: HTN w chronic systolic CHF and CKD, ATN, nonischemic cardiomyopathy, persistent atrial fib, chronic venous hypertension w ulcer of bilateral lower extremities Clinical Indicators: Per 01/[address] 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 Starting to ease off now. Discomfort was around a 4- 5. Troponin 01/18: 0.159, 0.162, 0.135 Treatment: Serial troponins, increased Metoprolol tartrate 50 mg twice a day and added a noon dose Please clarify if possible Non-ST [place] is a valid diagnosis? [x ] No, possible Non-ST [place] is ruled out [ ] Yes, Possible Non-ST [place] is present as evidence by (additional clinical support): [ ] Other (please specify diagnosis) [ ] Unable to determine MTDD
== END 2024-01-22 13:06 | disposition hospice, home (50) | DRG 640 ==
LOC: EC 09:02 → 3SCARD 14:00
PROVIDERS: ADMIT Internal Medicine; ATTEND Internal Medicine
DX: E87.1 Hypo-osmolality and hyponatremia (principal); N17.0 Acute kidney failure with tubular necrosis; I13.0 Hypertensive heart and chronic kidney disease with heart failure and stage 1 through stage 4 chronic kidney disease, or unspecified chronic kidney disease; I42.8 Other cardiomyopathies; I50.22 Chronic systolic (congestive) heart failure; I48.11 Longstanding persistent atrial fibrillation; L97.912 Non-pressure chronic ulcer of unspecified part of right lower leg with fat layer exposed; L97.922 Non-pressure chronic ulcer of unspecified part of left lower leg with fat layer exposed; I48.92 Unspecified atrial flutter; I87.333 Chronic venous hypertension (idiopathic) with ulcer and inflammation of bilateral lower extremity; J98.11 Atelectasis; L89.152 Pressure ulcer of sacral region, stage 2; J45.909 Unspecified asthma, uncomplicated; N18.9 Chronic kidney disease, unspecified; I95.9 Hypotension, unspecified; Z51.5 Encounter for palliative care; E86.1 Hypovolemia; E87.6 Hypokalemia; T50.2X5A Adverse effect of carbonic-anhydrase inhibitors, benzothiadiazides and other diuretics, initial encounter; I44.7 Left bundle-branch block, unspecified; N40.0 Benign prostatic hyperplasia without lower urinary tract symptoms; G47.33 Obstructive sleep apnea (adult) (pediatric); K21.9 Gastro-esophageal reflux disease without esophagitis; L40.9 Psoriasis, unspecified; Z79.01 Long term (current) use of anticoagulants; Z79.84 Long term (current) use of oral hypoglycemic drugs; Z79.890 Hormone replacement therapy; Z79.899 Other long term (current) drug therapy; Z87.891 Personal history of nicotine dependence; Z96.653 Presence of artificial knee joint, bilateral; Z96.643 Presence of artificial hip joint, bilateral; M19.90 Unspecified osteoarthritis, unspecified site; Z89.022 Acquired absence of left finger(s); Z86.14 Personal history of Methicillin resistant Staphylococcus aureus infection; Z88.5 Allergy status to narcotic agent; Z88.0 Allergy status to penicillin; Z88.7 Allergy status to serum and vaccine; Z88.8 Allergy status to other drugs, medicaments and biological substances
CPT/HCPCS: 36415; 71045; 71046; 76770; 80048; 80053; 81003; 82533; 83735; 83880; 83935; 84295; 84300; 84443; 84484; 85025; 85610; 85730; 93005; 94760; 96374; 99291